=== PATIENT | female | born 1975 | race American Indian/Alaskan Native ===

== ENCOUNTER 2021-03-07 19:56 | Inpatient (IN) | payer OTHER, SELFPAY ==
[2021-03-07] MEDS ORDERED: AZITHROMYCIN/NS 500 MG/250 ML 500 MG/250 ML BAG IV ONE (20:17)
[2021-03-07] MEDS ORDERED: cefTRIAXone/NS 2 GM/100 ML 2 GM/100 ML BAG IV ONE (20:17)
[2021-03-07] MEDS ORDERED: SUCCINYLCHOLINE CHLORIDE 200 MG/10 ML INJ MDV ONE (20:38)
[2021-03-07] MEDS ORDERED: ETOMIDATE 20 MG/10 ML INJ IV ONE (20:38)
--- NOTE | 2021-03-07 20:54 | Emergency Department Report ---
HPI - General Chief Complaint: Dyspnea/Respdistress Time Seen by Provider: 03/07/21 20:17 - HPI HPI: 45-year-old female with no known past medical history presents complaining of shortness of breath for the last 3 days. She reports that for the past 3 days she has also had diarrhea. She says she has had a cough but thought it was just a cold. She is not vaccinated against the novel coronavirus. The patient is in respiratory distress and it is very difficult for her to speak. Further details of the HPI are limited due to the patient's current clinical condition. ED Past Medical Hx - Past Medical History Previous Medical History?: No - Surgical History Past Surgical History?: No - Social History Smoking Status: Never Smoker ED Review of Systems ROS: Stated complaint: COVID SYMPTOMS Other details as noted in HPI Comment: Unobtainable due to pts medical conditions Physical Exam - Physical Exam Vital Signs: Vital Signs 03/07/21 19:59 Temperature 97.4 F L Pulse Rate 115 H Respiratory 30 H Rate O2 Sat by Pulse 55 L Oximetry Physical Exam: GENERAL: Well developed and well nourished. In severe respiratory distress. Speaking in very short sentences. HEENT: Normocephalic. No obvious signs of trauma. Dry mucous membranes. EYES: Extraocular movements are intact. NECK: Supple. Trachea is midline. LUNGS: Severe respiratory distress with accessory muscle use. Lung auscultation reveals scattered crackles and rhonchi throughout bilateral lung pedersen. HEART/CARDIOVASCULAR: Tachycardic but with regular rhythm. No murmurs or rubs. VASCULAR: 2+ peripheral pulses. Dusky appearing extremities ABDOMEN: Abdomen is soft and nondistended. There is no significant tenderness, guarding or rebound. SKIN: Skin is warm and dry, dusky extremities NEURO: Patient is awake and alert, moving all four extremities. No focal defi cits. MUSCULOSKELETAL: No obvious deformities. No significant tenderness. . ED Course Vital Signs 03/07/21 19:59 Temperature 97.4 F L Pulse Rate 115 H Respiratory 30 H Rate O2 Sat by Pulse 55 L Oximetry - Central Line Placement Right IJ Time Out Performed: Yes Patient Placed on Monitor/Pulse Ox: Yes MD Prep: mask, gown, gloves Central Line Prep: Chlorhexidine scrub, sterile drapes applied Local Anesthesia Used: Lidocaine 1% Amount of Anesthesia Used (mls): 1 Ultrasound Used for Placement: Yes Central Line Lumen Inserted: triple Reason for Insertion: High Alert Medication Central Line Position: good blood return, all ports aspirated, flus, sutured in place with nyl Dressing Applied: Tegaderm, sterile gauze/tape Post Procedure X-Ray: tip of catheter in good p Patient Tolerated Procedure: well Complications: none - Intubation Sedative: Etomidate Mg Given: 20 Paralytic: Succinylcholine Mg Given: 100 Laryngoscope: Carla Size: 4 ET Tube Size: 7.5 Tube Secured Depth (cm): 22 Tube Secured Location: lips Tube Placement Confirmation: visualized tube passing t, equal breath sounds bilat, confirmation by capnometr Patient Tolerated Procedure: well, no complications Intubation Complications: none ED Medical Decision Making - Lab Data Result diagrams: 03/07/21 21:04 03/07/21 20:31 Labs 03/07/21 03/07/21 03/07/21 20:31 20:31 20:31 WBC RBC Hgb Hct MCV MCH MCHC RDW Plt Count Lymph % (Auto) [place] % (Auto) Eos % (Auto) Baso % (Auto) Lymph # (Auto) [place] # (Auto) Eos # (Auto) Baso # (Auto) Add Manual Diff Total Counted Seg Neutrophils % Seg Neuts % (Manual) Band Neutrophils % Lymphocytes % (Manual) Monocytes % (Manual) Metamyelocytes % Myelocytes % Nucleated RBC % Seg Neutrophils # Seg Neutrophils # Man Band Neutrophils # Lymphocytes # (Manual) Abs React Lymphs (Man) Monocytes # (Manual) Eosinophils # (Manual) Basophils # (Manual) Metamyelocytes # Myelocytes # Promyelocytes # Blast Cells # WBC Morphology Hypersegmented Neuts Hyposegmented Neuts Hypogranular Neuts Smudge Cells Toxic Granulation Toxic Vacuolation Dohle Bodies Pelger-Huet Anomaly Jarrett Rods Platelet Estimate Clumped Platelets Plt Clumps, EDTA Large Platelets Giant Platelets Platelet Satelliting Plt Morphology Comment RBC Morphology Dimorphic RBCs Polychromasia Hypochromasia Poikilocytosis Anisocytosis Microcytosis Macrocytosis Spherocytes Pappenheimer Bodies Sickle Cells Target Cells Tear Drop Cells Ovalocytes Helmet Cells [place] Bodies [place] Rings [place] Cells Bite Cells Crenated Cell Elliptocytes Acanthocytes (Spur) Rouleaux Hemoglobin C Crystals Schistocytes Malaria parasites Joss Bodies Hem Pathologist Commnt APTT D-Dimer Sodium 133 L Potassium 4.2 Chloride 94.6 L Carbon Dioxide 17 L Anion Gap 26 BUN 22 H Creatinine 0.9 Estimated GFR > 60 BUN/Creatinine Ratio 24 Glucose 309 H 301 H Lactic Acid 5.10 H* Calcium 8.4 Ferritin Total Bilirubin 0.70 AST 34 ALT 18 Alkaline Phosphatase 122 Lactate Dehydrogenase 1259 H Troponin T 0.085 H C-Reactive Protein 25.50 H Total Protein 7.3 Albumin 3.5 L Albumin/Globulin Ratio 0.9 Triglycerides 213 H Cholesterol 141 LDL Cholesterol Direct 72 HDL Cholesterol 34 L Cholesterol/HDL Ratio 4.14 Procalcitonin 03/07/21 03/07/21 03/07/21 20:31 20:31 21:04 WBC 31.6 H RBC 4.83 Hgb 13.7 Hct 42.3 MCV 88 MCH 28 MCHC 32 RDW 15.3 H Plt Count 165 Lymph % (Auto) Gravity Meter Operator [place] % (Auto) Gravity Meter Operator Eos % (Auto) Gravity Meter Operator Baso % (Auto) Gravity Meter Operator Lymph # (Auto) Gravity Meter Operator [place] # (Auto) Gravity Meter Operator Eos # (Auto) Gravity Meter Operator Baso # (Auto) Gravity Meter Operator Add Manual Diff Complete Total Counted 200 Seg Neutrophils % Gravity Meter Operator Seg Neuts % (Manual) 73.0 H Band Neutrophils % 5.0 Lymphocytes % (Manual) 11.5 L Monocytes % (Manual) 5.5 Metamyelocytes % 4.0 Myelocytes % 1.0 Nucleated RBC % 7.0 H Seg Neutrophils # Gravity Meter Operator Seg Neutrophils # Man 23.1 H Band Neutrophils # 1.6 Lymphocytes # (Manual) 3.6 Abs React Lymphs (Man) 0.0 Monocytes # (Manual) 1.7 H Eosinophils # (Manual) 0.0 Basophils # (Manual) 0.0 Metamyelocytes # 1.3 Myelocytes # 0.3 Promyelocytes # 0.0 Blast Cells # 0.0 WBC Morphology Not Reportable Hypersegmented Neuts Not Reportable Hyposegmented Neuts Not Reportable Hypogranular Neuts Not Reportable Smudge Cells Not Reportable Toxic Granulation Not Reportable Toxic Vacuolation Not Reportable Dohle Bodies Not Reportable Pelger-Huet Anomaly Not Reportable Jarrett Rods Not Reportable Platelet Estimate Cons Clumped Platelets Not Reportable Plt Clumps, EDTA Not Reportable Large Platelets Few Giant Platelets Not Reportable Platelet Satelliting Not Reportable Plt Morphology Comment Not Reportable RBC Morphology Not Reportable Dimorphic RBCs Not Reportable Polychromasia Few Hypochromasia Not Reportable Poikilocytosis Not Reportable Anisocytosis 1+ Microcytosis Not Reportable Macrocytosis Not Reportable Spherocytes Not Reportable Pappenheimer Bodies Not Reportable Sickle Cells Not Reportable Target Cells Not Reportable Tear Drop Cells Not Reportable Ovalocytes Not Reportable Helmet Cells Not Reportable [place] Bodies Not Reportable [place] Rings Not Reportable [place] Cells Not Reportable Bite Cells Not Reportable Crenated Cell Not Reportable Elliptocytes Not Reportable Acanthocytes (Spur) Not Reportable Rouleaux Not Reportable Hemoglobin C Crystals Not Reportable Schistocytes Not Reportable Malaria parasites Not Reportable Joss Bodies Not Reportable Hem Pathologist Commnt No APTT D-Dimer Sodium Potassium Chloride Carbon Dioxide Anion Gap BUN Creatinine Estimated GFR BUN/Creatinine Ratio Glucose Lactic Acid Calcium Ferritin 148.8 Total Bilirubin AST ALT Alkaline Phosphatase Lactate Dehydrogenase Troponin T C-Reactive Protein Total Protein Albumin Albumin/Globulin Ratio Triglycerides Cholesterol LDL Cholesterol Direct HDL Cholesterol Cholesterol/HDL Ratio Procalcitonin 0.54 03/07/21 03/07/21 21:28 21:28 WBC RBC Hgb Hct MCV MCH MCHC RDW Plt Count Lymph % (Auto) [place] % (Auto) Eos % (Auto) Baso % (Auto) Lymph # (Auto) [place] # (Auto) Eos # (Auto) Baso # (Auto) Add Manual Diff Total Counted Seg Neutrophils % Seg Neuts % (Manual) Band Neutrophils % Lymphocytes % (Manual) Monocytes % (Manual) Metamyelocytes % Myelocytes % Nucleated RBC % Seg Neutrophils # Seg Neutrophils # Man Band Neutrophils # Lymphocytes # (Manual) Abs React Lymphs (Man) Monocytes # (Manual) Eosinophils # (Manual) Basophils # (Manual) Metamyelocytes # Myelocytes # Promyelocytes # Blast Cells # WBC Morphology Hypersegmented Neuts Hyposegmented Neuts Hypogranular Neuts Smudge Cells Toxic Granulation Toxic Vacuolation Dohle Bodies Pelger-Huet Anomaly Jarrett Rods Platelet Estimate Clumped Platelets Plt Clumps, EDTA Large Platelets Giant Platelets Platelet Satelliting Plt Morphology Comment RBC Morphology Dimorphic RBCs Polychromasia Hypochromasia Poikilocytosis Anisocytosis Microcytosis Macrocytosis Spherocytes Pappenheimer Bodies Sickle Cells Target Cells Tear Drop Cells Ovalocytes Helmet Cells [place] Bodies [place] Rings Brant Cells Bite Cells Crenated Cell Elliptocytes Acanthocytes (Spur) Rouleaux Hemoglobin C Crystals Schistocytes Malaria parasites Joss Bodies Hem Pathologist Commnt APTT 29.1 D-Dimer > 59113 H Sodium Potassium Chloride Carbon Dioxide Anion Gap BUN Creatinine Estimated GFR BUN/Creatinine Ratio Glucose Lactic Acid 6.00 H* Calcium Ferritin Total Bilirubin AST ALT Alkaline Phosphatase Lactate Dehydrogenase Troponin T C-Reactive Protein Total Protein Albumin Albumin/Globulin Ratio Triglycerides Cholesterol LDL Cholesterol Direct HDL Cholesterol Cholesterol/HDL Ratio Procalcitonin - EKG Data -: EKG Interpreted by Me - EKG Data 03/08/21 00:22 Normal sinus rhythm. Normal axis. Normal intervals. No ectopy. No significant ST segment or T wave abnormalities. - Radiology Data CHEST 1 VIEW 03/07/2021 8:20 PM INDICATION / CLINICAL INFORMATION: resp distress. COMPARISON: None available. FINDINGS: SUPPORT DEVICES: None. HEART / MEDIASTINUM: No significant abnormality. LUNGS / PLEURA: Diffuse patchy bilateral pulmonary opacities are noted. No pleural effusion. No pneumothorax. ADDITIONAL FINDINGS: No significant additional findings. IMPRESSION: 1. Diffuse patchy bilateral pulmonary opacities are noted. This may represent an atypical/viral infectious process versus interstitial edema. Clinical correlation is needed. Signer Name: Phillip Maier MD Signed: 03/07/2021 8:30 PM Workstation Name: [id number] CHEST 1 VIEW 03/07/2021 8:20 PM INDICATION / CLINICAL INFORMATION: confirm Et tube placement. COMPARISON: 03/07/2021 FINDINGS: SUPPORT DEVICES: Interval placement of ET tube with its tip roughly at the level of the orion. Interval placement of NG tube with its tip projected over left upper quadrant of the a bdomen and its side-port at the distal GE junction. HEART / MEDIASTINUM: Stable. LUNGS / PLEURA: Diffuse lateral pulmonary opacities have not changed since the prior exam. No pleural effusion. No pneumothorax. ADDITIONAL FINDINGS: No significant additional findings. IMPRESSION: 1. Interval placement of ET tube with its tip at the level the orion. Retraction approximately 3.5 cm is recommended. 2. Interval placement of NG tube needs advancement approximately 5 cm for proper positioning. 3. Diffuse bilateral pulmonary opacities have not changed since the prior exam. Signer Name: Phillip Maier MD Signed: 03/07/2021 8:35 PM Workstation Name: [id number] CHEST 1 VIEW INDICATION / CLINICAL INFORMATION: Confirm central line placement. COMPARISON: 03/07/2021 FINDINGS: SUPPORT DEVICES: Right IJ central venous line has been placed. The tip is in the expected location of the SVC and is in satisfactory position. Indwelling ET tube and NG tube remain in stable and satisfactory position. HEART / MEDIASTINUM: No significant abnormality. LUNGS / PLEURA: Diffuse bilateral nodular pulmonary opacities are again noted not appreciably changed. Many of these opacities are "masslike". No pneumothorax. ADDITIONAL FINDINGS: No significant additional findings. IMPRESSION: 1. Diffuse bilateral pulmonary opacities. It is unclear if this represents diffuse bilateral pneumonia versus numerous pulmonary nodules/metastases. Please correlate clinically. Overall, the appearance of the chest radiograph is stable. 2. Satisfactory positioning of the right IJ central venous line. No pneumothorax. Signer Name: Meryl Aguila MD Signed: 03/08/2021 12:53 AM Workstation Name: [id number] - Medical Decision Making 45-year-old female with no known past medical history presents complaining of shortness of breath and diarrhea for the past 3 days. Patient was noted to be i n extreme respiratory distress in triage, satting in the 50% on room air. She is tachycardic in the 130s. She has no abdominal tenderness. Lung auscultation reveals scattered crackles and rhonchi throughout bilateral lung pedersen. The patient was placed on BiPAP. Full sepsis orders were initiated including labs and cultures, as well as COVID-19 order set. We will administer IV ceftriaxone, azithromycin, and vancomycin for likely sepsis secondary to pneumonia and give 30 mL/kg of IV fluid based on her ideal body weight of 50 kg. After 15 minutes on BiPAP, the patient is noted to be satting in the 70s still. Decision was made to proceed with emergent intubation and to place the patient on mechanical ventilation. Labs have returned and reveal several abnormalities including white blood cell count of 31.6, elevated lactate of 5.1, troponin of 0.085 (most likely due to prolonged hypoixemia) and glucose of 301. Her creatinine is 0.9. Chest x-ray confirms correct ET tube placement as well as parents consistent with bilateral pneumonia. I am highly suspicious for COVID-19 infection. will be admitted to the ICU for further management. D-dimer returned at greater than 10,000. Although I am highly suspicious for COVID-19 infection, we will therefore order CTA of the chest which will be followed up by the admitting doctor, Dr. Palma. Although the patient was initially hypotensive with a blood pressure in the 80s systolic, her blood pressure improved with sepsis IV fluids. We will continue to monitor her blood pressure closely. At 11:04 PM, the patient is noted to have a blood pressure which continues to drop into the 80s systolic. We will start a Levophed drip as a vasopressor and place a central line. Critical Care Time: Yes (90) Critical care time in (mins) excluding proc time.: 90 Critical care attestation.: If time is entered above; I have spent that time in minutes in the direct care of this critically ill patient, excluding procedure time. Critical care time was spent in the assessment and management of acute hypoxic respiratory failure requiring intubation and mechanical ventilation as well as septic shock requiring IV fluids and vasopressors for blood pressure support. ED Disposition Clinical Impression: Septic shock, Pneumonia, Suspected 2019 novel coronavirus infection, Sepsis with acute hypoxic respiratory failure, Hyperglycemia Disposition: OP ADMIT IP TO THIS HOSP Is pt being admited?: Yes Condition: Critical
[2021-03-07 21:09] LABS: Hematocrit 42.3 % (30.3-42.9); Hemoglobin 13.7 gm/dl (10.1-14.3); Mean Corpuscular HGB Conc 32 % (30-34); Mean Corpuscular Volume 88 fl (79-97); Platelet Count 165 K/mm3 (140-440); Red Blood Count 4.83 M/mm3 (3.65-5.03); Red Cell Distribution Width 15.3 % (13.2-15.2)
[2021-03-07 21:12] LABS: Alanine Aminotransferase 18 units/L (7-56); Albumin 3.5 g/dL (3.9-5); BUN/Creatinine Ratio 24; Blood Urea Nitrogen 22 mg/dL (7-17); Calcium 8.4 mg/dL (8.4-10.2); Hemolysis Index 110
[2021-03-07 21:17] LABS: C-Reactive Protein 25.5 mg/dL (0.00-1.30)
[2021-03-07] MEDS ORDERED: VANCOMYCIN 2,000 MG in SODIUM CHLORIDE 0.9% 500 ML 500 ML IV ONE (21:20)
[2021-03-07 21:25] LABS: Chol/HDL Ratio 4.14 %; HDL Cholesterol 34 mg/dL (40-59); LDL Cholesterol,Direct 72 mg/dL (50-130)
--- NOTE | 2021-03-07 21:35 | XRay Report ---
CHEST 1 VIEW 03/07/2021 8:20 PM INDICATION / CLINICAL INFORMATION: resp distress. COMPARISON: None available. FINDINGS: SUPPORT DEVICES: None. HEART / MEDIASTINUM: No significant abnormality. LUNGS / PLEURA: Diffuse patchy bilateral pulmonary opacities are noted. No pleural effusion. No pneum othorax. ADDITIONAL FINDINGS: No significant additional findings. IMPRESSION: 1. Diffuse patchy bilateral pulmonary opacities are noted. This may represent an atypical/viral infec tious process versus interstitial edema. Clinical correlation is needed. Signer Name: Phillip Maier MD Signed: 03/07/2021 9:30 PM Workstation Name: [id number]
[2021-03-07] MEDS ORDERED: SODIUM CHLORIDE 0.9% 1000 ML 1,000 ML ONE (21:37)
--- NOTE | 2021-03-07 21:39 | XRay Report ---
CHEST 1 VIEW 03/07/2021 8:20 PM INDICATION / CLINICAL INFORMATION: confirm Et tube placement. COMPARISON: 03/07/2021 FINDINGS: SUPPORT DEVICES: Interval placement of ET tube with its tip roughly at the level of the orion. Inter katie placement of NG tube with its tip projected over left upper quadrant of the abdomen and its side- port at the distal GE junction. HEART / MEDIASTINUM: Stable. LUNGS / PLEURA: Diffuse lateral pulmonary opacities have not changed since the prior exam. No pleural effusion. No pneumothorax. ADDITIONAL FINDINGS: No significant additional findings. IMPRESSION: 1. Interval placement of ET tube with its tip at the level the orion. Retraction approximately 3.5 c m is recommended. 2. Interval placement of NG tube needs advancement approximately 5 cm for proper positioning. 3. Diffuse bilateral pulmonary opacities have not changed since the prior exam. Signer Name: Phillip Maier MD Signed: 03/07/2021 9:35 PM Workstation Name: [id number]
[2021-03-07 21:47] LABS: Band Neutrophils # (Manual) 1.6 K/mm3; Monocytes % (Manual) 5.5 % (0.0-7.3); Myelocytes # (Manual) 0.3 K/mm3; Total Cells Counted 200
[2021-03-07 21:48] LABS: Partial Thromboplastin Time 29.1 Sec. (24.2-36.6)
[2021-03-07 21:48] LABS: Anisocytosis 1+; Large Platelets Few
[2021-03-07 21:49] LABS: Platelet Estimate Cons
[2021-03-07] MEDS: fentaNYL 100 MCG/2 ML INJ IV PRN (22:13)
[2021-03-07] MEDS: fentaNYL DRIP Premix 2,000 MCG/100 ML BAG IV SCH (22:16)
[2021-03-07] MEDS ORDERED: ONDANSETRON 4 MG/2 ML INJ IV PRN (22:57)
[2021-03-07] MEDS ORDERED: DEXTROSE 50% IN WATER (25GM) 50 ML SYRINGE IV PRN (22:57)
[2021-03-07] MEDS ORDERED: MAGNESIUM HYDROXIDE (MOM) ORAL LIQD UDC PO PRN (22:57)
--- NOTE | 2021-03-07 23:15 | History and Physical Report ---
History of Present Illness Date of examination: 03/07/21 Date of admission: 03/07/2021 Chief complaint: Shortness of breath & Diarrhea for 3 days History of present illness: 45-year-old female with no significant past medical history Presenting to the emergency room today complaining of cough, shortness of breath and diarrhea for about 3 days. Patient was found to be in respiratory distress upon arrival in the emergency room. Initial oxygen saturation was said to be in the 50s and patient was subsequently placed on a nonrebreather with with improvement of oxy gen saturation to the 70s. Patient was subsequently intubated in the emergency room. Most of the history was gotten from the emergency room staff as patient was already intubated. Family members were also not available. Review of patient's record indicates she has not received vaccination against the COVID-19. Work-up in the emergency room today reveals bilateral pulmonary infiltrate on the chest x-ray. Labs reveals significant leukocytosis of 31,000, hyperglycemia with blood glucose of 301, D-dimer was also significantly elevated and greater than 10,000. CT angiogram of the chest reveals multiple peripheral bilateral lower lobe pulmonary emboli. Patient became hypotensive and was given IV fluid and started on pressors in the ER. Patient has been admitted for a pneumonia with septic shock, pulmonary emboli and will also rule out COVID-19 infection. Past History Past Medical History: No medical history Past Surgical History: No surgical history Social history: no significant social history Medications and Allergies Allergies Allergy/AdvReac Type Severity Reaction Status Date / Time No Known Allergies Allergy Unverified 03/07/21 19:59 Active Meds: Active Medications Dextrose (Dextrose 50% In Water (25gm) 50 Ml Syringe) 50 ml IV Q30MIN PRN; Protocol PRN Reason: Hypoglycemia Dextrose (Dextrose 50% In Water (25gm) 50 Ml Syringe) 50 ml IV Q30MIN PRN; Protocol PRN Reason: Hypoglycemia Enoxaparin Sodium (Enoxaparin 40 Mg/0.4 Ml Inj) 40 mg SUB-Q QDAY@2200 [facility]IO; Protocol Fentanyl (Fentanyl 100 Mcg/2 Ml Inj) 50 mcg IV Q10MIN PRN PRN Reason: ANALGESIA Last Admin: 03/07/21 22:13 Dose: 50 mcg Documented by: Propofol (Diprivan 10 Mg/Ml) 1,000 mg in 100 mls @ 6 mls/hr IV TITR [facility]CO ANTONIO; Protocol Last Admin: 03/07/21 21:12 Dose: 5 mcg/kg/min, 6 mls/hr Documented by: Fentanyl Citrate (Fentanyl Drip Premix) 2,000 mcg in 100 mls @ 10 mls/hr IV TITR [facility]CO ANTONIO; Protocol Last Admin: 03/07/21 22:16 Dose: 1 mcg/kg/hr, 10 mls/hr Documented by: Norepinephrine (Levophed Drip 4 Mg/Ns 250 Ml) 4 mg in 250 mls @ 7.5 mls/hr IV TITR [facility]CO ANTONIO; Protocol Sodium Chloride (Nacl 0.9% 1000 Ml) 1,000 mls @ 125 mls/hr IV DIRECT [facility]CO ANTONIO Ceftriaxone Sodium (Rocephin/Ns 2 Gm/100 Ml) 2 gm in 100 mls @ 200 mls/hr IV Q24H [facility] ANTON[facility]; Protocol Azithromycin (Zithromax/Ns) 500 mg in 250 mls @ 250 mls/hr IV Q24H [facility] ANTONIO; Protocol Insulin Human Lispro (Insulin Lispro 100 Unit/Ml) 0 unit SUB-Q ACHS MARCO ANTONIO; Protocol Magnesium Hydroxide (Magnesium Hydroxide (Mom) Oral Liqd Udc) 30 ml PO Q4H PRN PRN Reason: Constipation Morphine Sulfate (Morphine 2 Mg/1 Ml Inj) 2 mg IV Q4H PRN PRN Reason: Pain, Moderate (4-6) Ondansetron HCl (Ondansetron 4 Mg/2 Ml Inj) 4 mg IV Q8H PRN PRN Reason: Nausea And Vomiting Sodium Chloride (Sodium Chloride 0.9% 10 Ml Flush Syringe) 10 ml IV BID [facility]CO AN[facility]IO Sodium Chloride (Sodium Chloride 0.9% 10 Ml Flush Syringe) 10 ml IV PRN PRN PRN Reason: LINE FLUSH Review of Systems ROS unobtainable: due to endotracheal tube Exam - Constitutional Vitals: Temp Pulse Resp BP Pulse Ox 97.4 F L 85 30 H 82/52 95 03/07/21 19:59 03/07/21 21:04 03/07/21 19:59 03/07/21 21:04 03/07/21 21:04 General appearance: Present: well-nourished, obese, other (Intubated and sedated ) - EENT Eyes: Present: PERRL, EOM intact. Absent: scleral icterus ENT: hearing intact, clear oral mucosa, dentition normal - Neck Neck: Present: supple, normal ROM - Respiratory Respiratory effort: normal Respiratory: bilateral: diminished - Cardiovascular Rhythm: regular Heart Sounds: Present: S1 & S2. Absent: gallop, systolic murmur, diastolic murmur, rub, click - Extremities Extremities: no ischemia, pulses intact, pulses symmetrical, No edema, normal temperature, normal color, Full ROM Peripheral Pulses: within normal limits - Abdominal General gastrointestinal: Present: soft, non-tender, non-distended, normal bowel sounds. Absent: mass - Integumentary Integumentary: Present: clear, warm, dry. Absent: rash - Musculoskeletal Musculoskeletal: strength equal bilaterally - Psychiatric Psychiatric: cooperative - Neurologic Neurologic: CNII-XII intact, no focal deficits, moves all extremities, other (Currently intubated and sedated) HEART Score - HEART Score Troponin: Troponin T 0.085 ng/mL (0.00-0.029) H 03/07/21 20:31 Results - Labs CBC & Chem 7: 03/07/21 21:04 03/07/21 20:31 Labs: Abnormal lab results 03/07/21 03/07/21 03/07/21 Range/Units 20:31 20:31 20:31 WBC (4.5-11.0) K/mm3 RDW (13.2-15.2) % Seg Neuts % (Manual) (40.0-70.0) % Lymphocytes % (Manual) (13.4-35.0) % Nucleated RBC % (0.0-0.9) % Seg Neutrophils # Man (1.8-7.7) K/mm3 Monocytes # (Manual) (0.0-0.8) K/mm3 D-Dimer (0-234) ng/mlDDU Sodium 133 L (137-145) mmol/L Chloride 94.6 L (98-107) mmol/L Carbon Dioxide 17 L (22-30) mmol/L BUN 22 H (7-17) mg/dL Glucose 309 H 301 H (65-100) mg/dL Lactic Acid 5.10 H* (0.7-2.0) mmol/L Lactate Dehydrogenase 1259 H (91-180) units/L Troponin T 0.085 H (0.00-0.029) ng/mL C-Reactive Protein 25.50 H (0.00-1.30) mg/dL Albumin 3.5 L (3.9-5) g/dL Triglycerides 213 H (2-149) mg/dL HDL Cholesterol 34 L (40-59) mg/dL 03/07/21 03/07/21 03/07/21 Range/Units 21:04 21:28 21:28 WBC 31.6 H (4.5-11.0) K/mm3 RDW 15.3 H (13.2-15.2) % Seg Neuts % (Manual) 73.0 H (40.0-70.0) % Lymphocytes % (Manual) 11.5 L (13.4-35.0) % Nucleated RBC % 7.0 H (0.0-0.9) % Seg Neutrophils # Man 23.1 H (1.8-7.7) K/mm3 Monocytes # (Manual) 1.7 H (0.0-0.8) K/mm3 D-Dimer > 45479 H (0-234) ng/mlDDU Sodium (137-145) mmol/L Chloride (98-107) mmol/L Carbon Dioxide (22-30) mmol/L BUN (7-17) mg/dL Glucose (65-100) mg/dL Lactic Acid 6.00 H* (0.7-2.0) mmol/L Lactate Dehydrogenase (91-180) units/L Troponin T (0.00-0.029) ng/mL C-Reactive Protein (0.00-1.30) mg/dL Albumin (3.9-5) g/dL Triglycerides (2-149) mg/dL HDL Cholesterol (40-59) mg/dL Assessment and Plan - Patient Problems (1) Pneumonia Current Visit: Yes Status: Acute Plan to address problem: Patient commenced on empiric IV antibiotics. We will await culture results. (2) Hyperglycemia Current Visit: Yes Status: Acute Plan to address problem: Patient has no known history of diabetes mellitus. Will monitor blood glucose and also check hemoglobin A1c. (3) Respiratory failure Current Visit: Yes Status: Acute Plan to address problem: Possibly secondary to the pneumonia. Patient currently intubated. Consult placed to filler and trimmer for further evaluation. (4) Septic shock Current Visit: Yes Status: Acute Plan to address problem: Secondary to the pneumonia. Patient has been started on empiric IV antibiotics ,IV fluid and pressors. Will monitor labs closely. (5) Suspected 2019 novel coronavirus infection Current Visit: Yes Status: Acute Plan to address problem: We await COVID-[address] patient on isolation precautions. We will commence patient on IV steroid and also place consult to infectious disease . (6) Pulmonary embolism Current Visit: Yes Status: Acute Plan to address problem: Patient started on anticoagulation with heparin drip. (7) DVT prophylaxis Current Visit: Yes Status: Acute Plan to address problem: Patient currently on anticoagulation. (8) Full code status Current Visit: Yes Status: Acute Plan to address problem: Patient is a full code.
[2021-03-07] MEDS ORDERED: dexAMETHasone 4 MG/ML VIAL IV ONE (23:17)
[2021-03-07] MEDS ORDERED: NORepinephrine/NS 4 MG-250 ML 4 MG/250 ML BAG IV SCH (23:45)
[2021-03-08 00:18] LABS: ABG Base Excess -4.7 mmol/L (-2.0-3.0); ABG HCO3 20.7 mmol/L (20.0-26.0); ABG Methemoglobin 0.6 % (0.0-1.5); ABG Oxygen Saturation 89.1 % (95.0-99.0); ABG PCO2 39.5 mm Hg; ABG PH 7.338 pH Units (7.350-7.450); ABG PO2 62.6 mm Hg (80.0-90.0)
--- NOTE | 2021-03-08 01:58 | XRay Report ---
CHEST 1 VIEW INDICATION / CLINICAL INFORMATION: Confirm central line placement. COMPARISON: 03/07/2021 FINDINGS: SUPPORT DEVICES: Right IJ central venous line has been placed. The tip is in the expected location of the SVC and is in satisfactory position. Indwelling ET tube and NG tube remain in stable and satisfa ctory position. HEART / MEDIASTINUM: No significant abnormality. LUNGS / PLEURA: Diffuse bilateral nodular pulmonary opacities are again noted not appreciably changed . Many of these opacities are "masslike". No pneumothorax. ADDITIONAL FINDINGS: No significant additional findings. IMPRESSION: 1. Diffuse bilateral pulmonary opacities. It is unclear if this represents diffuse bilateral pneumoni a versus numerous pulmonary nodules/metastases. Please correlate clinically. Overall, the appearance of the chest radiograph is stable. 2. Satisfactory positioning of the right IJ central venous line. No pneumothorax. Signer Name: Meryl Aguila MD Signed: 03/08/2021 1:53 AM Workstation Name: [id number]
[2021-03-08] MEDS ORDERED: HEPARIN 10,000 UNITS/10 ML VIAL IV ONE ×2 (03:37→04:00)
[2021-03-08] MEDS ORDERED: HEPARIN 10,000 UNITS/10 ML VIAL IV PRN (03:37)
--- NOTE | 2021-03-08 03:39 | Cat Scan Report ---
CTA CHEST WITH IV CONTRAST INDICATION / CLINICAL INFORMATION: Elevated D-dimer, Respiratory failure. TECHNIQUE: Axial CT images were obtained through the chest after injection of 100 mL IV contrast. 3 plane MIP an d/or 3D reconstructions were produced. All CT scans at this location are performed using CT dose redu ction for [facility] by means of automated exposure control. COMPARISON: Chest radiograph earlier today FINDINGS: PULMONARY ARTERIES: Scattered small pulmonary emboli are seen throughout the pulmonary arteries of aneudy th lower lobes. No large central embolus. THORACIC AORTA: No significant abnormality. HEART: No significant abnormality. CORONARY ARTERIES: No significant calcification. PLEURA: No pleural effusion. No pneumothorax. LYMPH NODES: No significant adenopathy. LUNGS: There are diffuse pulmonary opacities throughout both lungs with developing consolidation diff usely and bilaterally. No evidence of true mass. ADDITIONAL FINDINGS: Please note that the tip of the ET tube is at the level the orion. Please consi amanuel retracting the ET tube 2-3 cm. Tip of NG tube is well positioned within the stomach. UPPER ABDOMEN: No acute findings. SKELETAL STRUCTURES: No significant osseous abnormality. IMPRESSION: 1. Multiple small peripheral bilateral lower lobe pulmonary emboli are present. 2. Diffuse severe bilateral pulmonary opacities most likely related to severe bilateral pneumonia. CRITICAL RESULT: Time of Discovery: 0225 hours TUBING ASSEMBLER Time of Communication: 0231 hours TUBING ASSEMBLER Licensed Practitioner Receiving Report: Shelia Read Back Performed: Yes. Signer Name: Meryl Aguila MD Signed: 03/08/2021 3:35 AM Workstation Name: [id number]
[2021-03-08] MEDS: HEPARIN/ 0.45% NACL DRIP 25,000 UNIT/500 ML BAG IV SCH ×2 (05:01→21:03)
[2021-03-08] MEDS: SODIUM CHLORIDE 0.9% 1000 ML 1,000 ML IV SCH ×3 (05:01→21:05)
[2021-03-08 06:48] LABS: Hematocrit 34.3 % (30.3-42.9); Hemoglobin 11.1 gm/dl (10.1-14.3); Mean Corpuscular HGB Conc 32 % (30-34); Mean Corpuscular Volume 86 fl (79-97); Platelet Count 108 K/mm3 (140-440); Red Blood Count 4.01 M/mm3 (3.65-5.03); Red Cell Distribution Width 14.5 % (13.2-15.2)
[2021-03-08 07:02] LABS: INR 1.69 (0.87-1.13)
[2021-03-08 07:03] LABS: Bacteria,Urine 1+ /HPF (Negative); Bilirubin,Urine NEG (Negative); Blood,Urine NEG (Negative); Color,Urine Yellow (Yellow); Mucus,Urine FEW /HPF
[2021-03-08 07:07] LABS: BUN/Creatinine Ratio 23; Blood Urea Nitrogen 21 mg/dL (7-17); Calcium 6.8 mg/dL (8.4-10.2); Hemolysis Index 9
[2021-03-08 07:23] LABS: Partial Thromboplastin Time TNR Sec. (24.2-36.6)
[2021-03-08] MEDS ORDERED: INSULIN LISPRO 100 UNIT/ML SUB-Q SCH (07:30)
[2021-03-08] MEDS: fentaNYL DRIP Premix 2,000 MCG/100 ML BAG IV SCH ×2 (08:03→15:54)
[2021-03-08 08:25] LABS: INR 1.49 (0.87-1.13)
[2021-03-08 08:32] LABS: Partial Thromboplastin Time 113.5 Sec. (24.2-36.6)
--- NOTE | 2021-03-08 08:39 | Progress Note ---
Assessment and Plan Assessment and plan: 45-year-old female with no significant past medical history Presenting to the emergency room today complaining of cough, shortness of breath and diarrhea for about 3 days. Patient was found to be in respiratory distress upon arrival in the emergency room. Initial oxygen saturation was said to be in the 50s and patient was subsequently placed on a nonrebreather with with improvement of oxygen saturation to the 70s. Patient was subsequently intubated in the emergency room. Most of the history was gotten from the emergency room staff as patient was already intubated. Family members were also not available. Review of patient's record indicates she has not received vaccination against the COVID-19. Work-up in the emergency room today reveals bilateral pulmonary infiltrate on the chest x-ray. Labs reveals significant leukocytosis of 31,000, hyperglycemia with blood glucose of 301, D-dimer was also significantly elevated and greater than 10,000. CT angiogram of the chest reveals multiple peripheral bilateral lower lobe pulmonary emboli. Patient became hypotensive and was given IV fluid and started on pressors in the ER. Patient has been admitted for a pneumonia with septic shock, pulmonary emboli and will also rule out COVID-19 infection. 03/08: New issues: Thrombocytosis question if this is secondary to HIT. We will send out HIT panel. Monitor platelets. Continue heparin drip at this time. Await pulmonary and ID input. (1) Pneumonia Current Visit: Yes Status: Acute Plan to address problem: Patient commenced on empiric IV antibiotics. We will await culture results. (2) Hyperglycemia Current Visit: Yes Status: Acute Plan to address problem: Patient has no known history of diabetes mellitus. Will monitor blood glucose and also check hemoglobin A1c. (3) Respiratory failure Current Visit: Yes Status: Acute Plan to address problem: Possibly secondary to the pneumonia. Patient currently intubated. Consult placed to production corrugator for further evaluation. (4) Septic shock Current Visit: Yes Status: Acute Plan to address problem: Secondary to the pneumonia. Patient has been started on empiric IV antibiotics ,IV fluid and pressors. Will monitor labs closely. (5) Suspected 2019 novel coronavirus infection Current Visit: Yes Status: Acute Plan to address problem: We await COVID-[address] patient on isolation precautions. We will commence patient on IV steroid and also place consult to infectious disease . (6) Pulmonary embolism Current Visit: Yes Status: Acute Plan to address problem: Patient started on anticoagulation with heparin drip. (7) DVT prophylaxis Current Visit: Yes Status: Acute Plan to address problem: Patient currently on anticoagulation. (8) Full code status Current Visit: Yes Status: Acute Plan to address problem: Patient is a full code. The high probability of a clinically significant, sudden or life threatening deterioration of the [pulmonary] system(s) required my full and direct attention, intervention and personal management. The aggregate critical care ti me was [35] minutes. This time is in addition to time spent performing reported procedures but includes the following: [X] Data Review and interpretation [X] Patient assessment and monitoring of vital signs [X] Documentation [X] Medication orders and management History Interval history: Patient seen and examined sedated remains on full ventilatory support Hospitalist Physical - Physical exam Narrative exam: VITAL SIGNS: Reviewed. GENERAL: The patient appears normally developed, obese, on full mechanical support sedated vital signs as documented. HEAD: No signs of head trauma. EYES: Pupils are equal. . EARS: Able to examine due to sedation MOUTH: ET tube in place NECK: No adenopathy, no JVD. CHEST: Chest with diminished breath sounds bilaterally. No wheezes, rales, or rhonchi. CARDIAC: Regular rate and rhythm. S1 and S2, without murmurs, gallops, or ru bs. VASCULAR: No Edema. Peripheral pulses normal and equal in all extremities. ABDOMEN: Soft, non tender and non distended. No rebound or guarding, and no masses palpated. Bowel Sounds normal. MUSCULOSKELETAL: Good range of motion of all major joints. Extremities without clubbing, cyanosis or edema. NEUROLOGIC EXAM: Sedated PSYCHIATRIC: Sedated SKIN: detail exam as documented in skin assessment - Constitutional Vitals: Temp Pulse Resp BP Pulse Ox 98.4 F 85 19 116/60 98 03/08/21 07:00 03/08/21 08:15 03/08/21 06:00 03/08/21 08:15 03/08/21 08:15 General appearance: Present: well-nourished, obese, other (Intubated and sedated) HEART Score - HEART Score Troponin: Troponin T 0.085 ng/mL (0.00-0.029) H 03/07/21 20:31 Results - Labs CBC & Chem 7: 03/08/21 06:18 06/10/21 06:31 Labs: Laboratory Last Values WBC 27.5 K/mm3 (4.5-11.0) H 03/08/21 06:18 RBC 4.01 M/mm3 (3.65-5.03) 03/08/21 06:18 Hgb 11.1 gm/dl (10.1-14.3) 03/08/21 06:18 Hct 34.3 % (30.3-42.9) D 03/08/21 06:18 MCV 86 fl (79-97) 03/08/21 06:18 MCH 28 pg (28-32) 03/08/21 06:18 MCHC 32 % (30-34) 03/08/21 06:18 RDW 14.5 % (13.2-15.2) 03/08/21 06:18 Plt Count 108 K/mm3 (140-440) L 03/08/21 06:18 Lymph % (Auto) Grit Removal Operator 03/07/21 21:04 [place] % (Auto) Grit Removal Operator 03/07/21 21:04 Eos % (Auto) Grit Removal Operator 03/07/21 21:04 Baso % (Auto) Grit Removal Operator 03/07/21 21:04 Lymph # (Auto) Grit Removal Operator 03/07/21 21:04 [place] # (Auto) Grit Removal Operator 03/07/21 21:04 Eos # (Auto) Grit Removal Operator 03/07/21 21:04 Baso # (Auto) Grit Removal Operator 03/07/21 21:04 Add Manual Diff Complete 03/07/21 21:04 Total Counted 200 03/07/21 21:04 Seg Neutrophils % Grit Removal Operator 03/07/21 21:04 Seg Neuts % (Manual) 73.0 % (40.0-70.0) H 03/07/21 21:04 Band Neutrophils % 5.0 % 03/07/21 21:04 Lymphocytes % (Manual) 11.5 % (13.4-35.0) L 03/07/21 21:04 Monocytes % (Manual) 5.5 % (0.0-7.3) 03/07/21 21:04 Metamyelocytes % 4.0 % 03/07/21 21:04 Myelocytes % 1.0 % 03/07/21 21:04 Nucleated RBC % 7.0 % (0.0-0.9) H 03/07/21 21:04 Seg Neutrophils # Grit Removal Operator 03/07/21 21:04 Seg Neutrophils # Man 23.1 K/mm3 (1.8-7.7) H 03/07/21 21:04 Band Neutrophils # 1.6 K/mm3 03/07/21 21:04 Lymphocytes # (Manual) 3.6 K/mm3 (1.2-5.4) 03/07/21 21:04 Abs React Lymphs (Man) 0.0 K/mm3 03/07/21 21:04 Monocytes # (Manual) 1.7 K/mm3 (0.0-0.8) H 03/07/21 21:04 Eosinophils # (Manual) 0.0 K/mm3 (0.0-0.4) 03/07/21 21:04 Basophils # (Manual) 0.0 K/mm3 (0.0-0.1) 03/07/21 21:04 Metamyelocytes # 1.3 K/mm3 03/07/21 21:04 Myelocytes # 0.3 K/mm3 03/07/21 21:04 Promyelocytes # 0.0 K/mm3 03/07/21 21:04 Blast Cells # 0.0 K/mm3 03/07/21 21:04 WBC Morphology Not Reportable 03/07/21 21:04 Hypersegmented Neuts Not Reportable 03/07/21 21:04 Hyposegmented Neuts Not Reportable 03/07/21 21:04 Hypogranular Neuts Not Reportable 03/07/21 21:04 Smudge Cells Not Reportable 03/07/21 21:04 Toxic Granulation Not Reportable 03/07/21 21:04 Toxic Vacuolation Not Reportable 03/07/21 21:04 Dohle Bodies Not Reportable 03/07/21 21:04 Pelger-Huet Anomaly Not Reportable 03/07/21 21:04 Jarrett Rods Not Reportable 03/07/21 21:04 Platelet Estimate Cons 03/07/21 21:04 Clumped Platelets Not Reportable 03/07/21 21:04 Plt Clumps, EDTA Not Reportable 03/07/21 21:04 Large Platelets Few 03/07/21 21:04 Giant Platelets Not Reportable 03/07/21 21:04 Platelet Satelliting Not Reportable 03/07/21 21:04 Plt Morphology Comment Not Reportable 03/07/21 21:04 RBC Morphology Not Reportable 03/07/21 21:04 Dimorphic RBCs Not Reportable 03/07/21 21:04 Polychromasia Few 03/07/21 21:04 Hypochromasia Not Reportable 03/07/21 21:04 Poikilocytosis Not Reportable 03/07/21 21:04 Anisocytosis 1+ 03/07/21 21:04 Microcytosis Not Reportable 03/07/21 21:04 Macrocytosis Not Reportable 03/07/21 21:04 Spherocytes Not Reportable 03/07/21 21:04 Pappenheimer Bodies Not Reportable 03/07/21 21:04 Sickle Cells Not Reportable 03/07/21 21:04 Target Cells Not Reportable 03/07/21 21:04 Tear Drop Cells Not Reportable 03/07/21 21:04 Ovalocytes Not Reportable 03/07/21 21:04 Helmet Cells Not Reportable 03/07/21 21:04 [place] Bodies Not Reportable 03/07/21 21:04 [place] Rings Not Reportable 03/07/21 21:04 Brant Cells Not Reportable 03/07/21 21:04 Bite Cells Not Reportable 03/07/21 21:04 Crenated Cell Not Reportable 03/07/21 21:04 Elliptocytes Not Reportable 03/07/21 21:04 Acanthocytes (Spur) Not Reportable 03/07/21 21:04 Rouleaux Not Reportable 03/07/21 21:04 Hemoglobin C Crystals Not Reportable 03/07/21 21:04 Schistocytes Not Reportable 03/07/21 21:04 Malaria parasites Not Reportable 03/07/21 21:04 Joss Bodies Not Reportable 03/07/21 21:04 Hem Pathologist Commnt No 03/07/21 21:04 PT 18.5 Sec. (12.2-14.9) H 03/08/21 07:55 INR 1.49 (0.87-1.13) H 03/08/21 07:55 APTT 113.5 Sec. (24.2-36.6) H* 03/08/21 07:55 D-Dimer > 68566 ng/mlDDU (0-234) H 03/07/21 21:28 ABG pH 7.338 pH Units (7.350-7.450) L 03/07/21 Unknown ABG pCO2 39.5 mm Hg 03/07/21 Unknown ABG pO2 62.6 mm Hg (80.0-90.0) L 03/07/21 Unknown ABG HCO3 20.7 mmol/L (20.0-26.0) 03/07/21 Unknown ABG O2 Saturation 89.1 % (95.0-99.0) L 03/07/21 Unknown ABG O2 Content 15.1 (0.0-44) 03/07/21 Unknown ABG Base Excess -4.7 mmol/L (-2.0-3.0) L 03/07/21 Unknown ABG Hemoglobin 12.3 gm/dl (12.0-16.0) 03/07/21 Unknown ABG Carboxyhemoglobin 1.4 % (0.0-5.0) 03/07/21 Unknown ABG Methemoglobin 0.6 % (0.0-1.5) 03/07/21 Unknown Oxyhemoglobin 87.3 % (95.0-99.0) L 03/07/21 Unknown FiO2 100 % 03/07/21 Unknown Sodium 140 mmol/L (137-145) D 03/08/21 06:18 Potassium 3.9 mmol/L (3.6-5.0) 03/08/21 06:18 Chloride 105.6 mmol/L (98-107) 03/08/21 06:18 Carbon Dioxide 23 mmol/L (22-30) 03/08/21 06:18 Anion Gap 15 mmol/L 03/08/21 06:18 BUN 21 mg/dL (7-17) H 03/08/21 06:18 Creatinine 0.9 mg/dL (0.6-1.2) 03/08/21 06:18 Estimated GFR > 60 ml/min 03/08/21 06:18 BUN/Creatinine Ratio 23 % 03/08/21 06:18 Glucose 188 mg/dL (65-100) H 03/08/21 06:18 Lactic Acid 3.40 mmol/L (0.7-2.0) H* 03/07/21 22:48 Calcium 6.8 mg/dL (8.4-10.2) L D 03/08/21 06:18 Ferritin 148.8 ng/mL (10.0-200.0) 03/07/21 20:31 Total Bilirubin 0.70 mg/dL (0.1-1.2) 03/07/21 20:31 AST 34 units/L (5-40) 03/07/21 20:31 ALT 18 units/L (7-56) 03/07/21 20:31 Alkaline Phosphatase 122 units/L (35-129) 03/07/21 20:31 Lactate Dehydrogenase 1259 units/L (91-180) H 03/07/21 20:31 Troponin T 0.085 ng/mL (0.00-0.029) H 03/07/21 20:31 C-Reactive Protein 25.50 mg/dL (0.00-1.30) H 03/07/21 20:31 Total Protein 7.3 g/dL (6.3-8.2) 03/07/21 20:31 Albumin 3.5 g/dL (3.9-5) L 03/07/21 20:31 Albumin/Globulin Ratio 0.9 % 03/07/21 20:31 Triglycerides 213 mg/dL (2-149) H 03/07/21 20:31 Cholesterol 141 mg/dL (50-199) 03/07/21 20:31 LDL Cholesterol Direct 72 mg/dL (50-130) 03/07/21 20:31 HDL Cholesterol 34 mg/dL (40-59) L 03/07/21 20:31 Cholesterol/HDL Ratio 4.14 % 03/07/21 20:31 Procalcitonin 0.54 ng/mL (<0.15) 03/07/21 20:31 HCG, Qual Negative (Negative) 03/07/21 22:48 Urine Color Yellow (Yellow) 03/08/21 05:51 Urine Turbidity Clear (Clear) 03/08/21 05:51 Urine pH 6.0 (5.0-7.0) 03/08/21 05:51 Ur Specific [place] > 1.050 (1.003-1.030) H 03/08/21 05:51 Urine Protein 100 mg/dl mg/dL (Negative) 03/08/21 05:51 Urine Glucose (UA) Neg mg/dL (Negative) 03/08/21 05:51 Urine Ketones Neg mg/dL (Negative) 03/08/21 05:51 Urine Blood Neg (Negative) 03/08/21 05:51 Urine Nitrite Neg (Negative) 03/08/21 05:51 Urine Bilirubin Neg (Negative) 03/08/21 05:51 Urine Urobilinogen 4.0 mg/dL (<2.0) 03/08/21 05:51 Ur Leukocyte Esterase Neg (Negative) 03/08/21 05:51 Urine WBC (Auto) 5.0 /HPF (0.0-6.0) 03/08/21 05:51 Urine RBC (Auto) 5.0 /HPF (0.0-6.0) 03/08/21 05:51 U Epithel Cells (Auto) < 1.0 /HPF (0-13.0) 03/08/21 05:51 Urine Bacteria (Auto) 1+ /HPF (Negative) 03/08/21 05:51 Urine Mucus Few /HPF 03/08/21 05:51 Microbiology: Microbiology 03/07/21 20:31 Peripheral/Venous Blood Culture - Preliminary Culture in Progress 03/07/21 20:38 Peripheral/Venous Blood Culture - Preliminary Culture in Progress Maya/IV: Voiding Method Indwelling Catheter Active Medications - Current Medications Current Medications: Generic Name Dose Route Start Last Admin Trade Name Freq PRN Reason Stop Dose Admin Dextrose 50 ml 03/07/21 22:57 Dextrose 50% In Water (25gm) 50 Ml Syringe IV Q30MIN PRN Hypoglycemia Protocol Famotidine 20 mg 03/08/21 10:00 Famotidine 20 Mg/2 Ml Inj IV BID MARCO ANTONOI Fentanyl 50 mcg 03/07/21 21:20 03/07/21 22:13 Fentanyl 100 Mcg/2 Ml Inj IV 50 mcg Q10MIN PRN Administration ANALGESIA Heparin Sodium (Porcine) 8,000 unit 03/08/21 03:37 Heparin 10,000 Units/10 Ml Vial 40 unit/kg (8000 unit) IV Q6H PRN Anti-Xa Assay < 0.1 units/ml Propofol 1,000 mg in 100 mls @ 6 mls/hr 03/07/21 21:00 03/07/21 21:12 Diprivan 10 Mg/Ml IV 5 mcg/kg/min TITR MARCO ANTONIO 6 mls/hr Administration Protocol 5 MCG/KG/MIN Fentanyl Citrate 2,000 mcg in 100 mls @ 10 mls/hr 03/07/21 22:00 03/08/21 08:03 Fentanyl Drip Premix IV 2 mcg/kg/hr TITR MARCO ANTONIO 20 mls/hr Administration Protocol 1 MCG/KG/HR Norepinephrine 4 mg in 250 mls @ 7.5 mls/hr 03/07/21 23:45 03/08/21 07:50 Levophed Drip 4 Mg/Ns 250 Ml IV 2 mcg/min TITR MARCO ANTONIO 7.5 mls/hr Titration Protocol 2 MCG/MIN Sodium Chloride 1,000 mls @ 125 mls/hr 03/07/21 23:00 03/08/21 05:01 Nacl 0.9% 1000 Ml IV 125 mls/hr DIRECT MARCO ANTONIO Administration Ceftriaxone Sodium 2 gm in 100 mls @ 200 mls/hr 03/08/21 21:30 Rocephin/Ns 2 Gm/100 Ml IV Q24H MARCO ANTONIO Protocol Azithromycin 500 mg in 250 mls @ 250 mls/hr 03/08/21 22:00 Zithromax/Ns IV Q24H [facility] Protocol Heparin Sodium/Sodium Chloride 25,000 unit in 500 mls @ 30 mls/hr 03/08/21 04:00 03/08/21 05:01 Heparin/ 0.45% Nacl-25,000 Unit/500 Ml IV 1,500 units/hr TITR MARCO ANTONIO 30 mls/hr Administration Protocol 1,500 UNITS/HR Insulin Human Lispro 0 unit 03/08/21 12:00 Insulin Lispro 100 Unit/Ml SUB-Q Q6HR [facility] Protocol Magnesium Hydroxide 30 ml 03/07/21 22:57 Magnesium Hydroxide (Mom) Oral Liqd Udc PO Q4H PRN Constipation Morphine Sulfate 2 mg 03/07/21 22:57 Morphine 2 Mg/1 Ml Inj IV Q4H PRN Pain, Moderate (4-6) Ondansetron HCl 4 mg 03/07/21 22:57 Ondansetron 4 Mg/2 Ml Inj IV Q8H PRN Nausea And Vomiting Sodium Chloride 10 ml 03/08/21 10:00 Sodium Chloride 0.9% 10 Ml Flush Syringe IV BID MARCO ANTONIO Sodium Chloride 10 ml 03/07/21 22:57 Sodium Chloride 0.9% 10 Ml Flush Syringe IV PRN PRN LINE FLUSH
[2021-03-08] MEDS: dexAMETHasone 4 MG/ML VIAL IV SCH (10:57)
[2021-03-08] MEDS: FAMOTIDINE 20 MG/2 ML INJ IV SCH ×2 (10:57→21:02)
[2021-03-08 11:35] LABS: Band Neutrophils # (Manual) 3.3 K/mm3; Myelocytes # (Manual) 0.3 K/mm3; Total Cells Counted 100
[2021-03-08 11:36] LABS: Platelet Estimate Consistent w Auto; RBC Morphology Normal
--- NOTE | 2021-03-08 12:09 | Consultation ---
History of Present Illness Consult date: 03/08/21 Requesting physician: SONALI HARRIS Reason for consult: pneumonia, other (Acute Hypoxemic Respiratory Failure) History of present illness: PULMONARY/CCM CONSULT NOTE (Full dictation # [id number]) Please see dictated notes for full details Past History Past Medical History: No medical history Past Surgical History: No surgical history Social history: no significant social history Medications and Allergies Allergies Allergy/AdvReac Type Severity Reaction Status Date / Time No Known Allergies Allergy Unverified 03/07/21 19:59 Active Meds: Active Medications Dexamethasone (Dexamethasone 4 Mg/Ml Vial) 8 mg IV DAILY MARCO ANTONIO Last Admin: 03/08/21 10:57 Dose: 8 mg Documented by: Dextrose (Dextrose 50% In Water (25gm) 50 Ml Syringe) 50 ml IV Q30MIN PRN; Protocol PRN Reason: Hypoglycemia Famotidine (Famotidine 20 Mg/2 Ml Inj) 20 mg IV BID MARCO ANTONIO Last Admin: 03/08/21 10:57 Dose: 20 mg Documented by: Fentanyl (Fentanyl 100 Mcg/2 Ml Inj) 50 mcg IV Q10MIN PRN PRN Reason: ANALGESIA Last Admin: 03/07/21 22:13 Dose: 50 mcg Documented by: Heparin Sodium (Porcine) (Heparin 10,000 Units/10 Ml Vial) 8,000 unit 40 unit/k g (8000 unit) IV Q6H PRN PRN Reason: Anti-Xa Assay < 0.1 units/ml Propofol (Diprivan 10 Mg/Ml) 1,000 mg in 100 mls @ 3.084 mls/hr IV TITR MARCO ANTONIO; Protocol Last Admin: 03/08/21 08:48 Dose: 10 mcg/kg/min, 6.168 mls/hr Documented by: Fentanyl Citrate (Fentanyl Drip Premix) 2,000 mcg in 100 mls @ 5.14 mls/hr IV TITR MARCO ANTONIO; Protocol Last Admin: 03/08/21 08:03 Dose: 2 mcg/kg/hr, 20 mls/hr Documented by: Norepinephrine (Levophed Drip 4 Mg/Ns 250 Ml) 4 mg in 250 mls @ 7.5 mls/hr IV TITR MARCO ANTONIO; Protocol Last Titration: 03/08/21 08:15 Dose: 0 mcg/min, 0 mls/hr Documented by: Sodium Chloride (Nacl 0.9% 1000 Ml) 1,000 mls @ 125 mls/hr IV DIRECT MARCO ANTONIO Last Admin: 03/08/21 05:01 Dose: 125 mls/hr Documented by: Ceftriaxone Sodium (Rocephin/Ns 2 Gm/100 Ml) 2 gm in 100 mls @ 200 mls/hr IV Q 24H MARCO ANTONIO; Protocol Azithromycin (Zithromax/Ns) 500 mg in 250 mls @ 250 mls/hr IV Q24H MARCO ANTONIO; Protocol Heparin Sodium/Sodium Chloride (Heparin/ 0.45% Nacl-25,000 Unit/500 Ml) 25,000 unit in 500 mls @ 30 mls/hr IV TITR MARCO ANTONIO; Protocol Last Admin: 03/08/21 05:01 Dose: 1,500 units/hr, 30 mls/hr Documented by: Insulin Human Lispro (Insulin Lispro 100 Unit/Ml) 0 unit SUB-Q Q6HR MARCO ANTONIO; Protocol Magnesium Hydroxide (Magnesium Hydroxide (Mom) Oral Liqd Udc) 30 ml PO Q4H PRN PRN Reason: Constipation Morphine Sulfate (Morphine 2 Mg/1 Ml Inj) 2 mg IV Q4H PRN PRN Reason: Pain, Moderate (4-6) Ondansetron HCl (Ondansetron 4 Mg/2 Ml Inj) 4 mg IV Q8H PRN PRN Reason: Nausea And Vomiting Sodium Chloride (Sodium Chloride 0.9% 10 Ml Flush Syringe) 10 ml IV BID [facility] Last Admin: 03/08/21 10:58 Dose: 10 ml Documented by: Sodium Chloride (Sodium Chloride 0.9% 10 Ml Flush Syringe) 10 ml IV PRN PRN PRN Reason: LINE FLUSH Physical Examination Vital signs: Vital Signs Temp Pulse Resp Pulse Ox 97.4 F L 115 H 30 H 55 L 03/07/21 19:59 03/07/21 19:59 03/07/21 19:59 03/07/21 19:59 Results - Laboratory Findings CBC and BMP: 03/08/21 06:18 03/08/21 06:18 ABG ABG pH 7.311 (7.320-7.450) L 03/08/21 08:06 POC ABG pCO2 42.1 mmHg (32.0-48.0) 03/08/21 08:06 ABG pCO2 39.5 mm Hg 03/07/21 Unknown POC ABG pO2 93.8 mmHg (83-108) 03/08/21 08:06 ABG pO2 62.6 mm Hg (80.0-90.0) L 03/07/21 Unknown POC ABG HCO3 20.8 03/08/21 08:06 ABG O2 Saturation 96.4 (0-100) 03/08/21 08:06 PT/INR, D-dimer PT 18.5 Sec. (12.2-14.9) H 03/08/21 07:55 INR 1.49 (0.87-1.13) H 03/08/21 07:55 D-Dimer > 16492 ng/mlDDU (0-234) H 03/07/21 21:28 Abnormal lab findings: Abnormal Labs 03/07/21 03/07/21 03/07/21 20:31 20:31 20:31 WBC RDW Plt Count Seg Neuts % (Manual) Lymphocytes % (Manual) Nucleated RBC % Seg Neutrophils # Man Lymphocytes # (Manual) Monocytes # (Manual) PT INR APTT D-Dimer ABG pH ABG pO2 ABG O2 Saturation ABG Base Excess ABG Hemoglobin ABG Chloride ABG Glucose Oxyhemoglobin Carboxyhemoglobin Sodium 133 L Chloride 94.6 L Carbon Dioxide 17 L BUN 22 H Glucose 309 H 301 H POC Glucose Lactic Acid 5.10 H* Calcium Lactate Dehydrogenase 1259 H Troponin T 0.085 H C-Reactive Protein 25.50 H Albumin 3.5 L Triglycerides 213 H HDL Cholesterol 34 L Arterial Blood Glucose Arterial Blood Ionized Calcium Ur Specific [place] 03/07/21 03/07/21 03/07/21 21:04 21:28 21:28 WBC 31.6 H RDW 15.3 H Plt Count Seg Neuts % (Manual) 73.0 H Lymphocytes % (Manual) 11.5 L Nucleated RBC % 7.0 H Seg Neutrophils # Man 23.1 H Lymphocytes # (Manual) Monocytes # (Manual) 1.7 H PT INR APTT D-Dimer > 19137 H ABG pH ABG pO2 ABG O2 Saturation ABG Base Excess ABG Hemoglobin ABG Chloride ABG Glucose Oxyhemoglobin Carboxyhemoglobin Sodium Chloride Carbon Dioxide BUN Glucose POC Glucose Lactic Acid 6.00 H* Calcium Lactate Dehydrogenase Troponin T C-Reactive Protein Albumin Triglycerides HDL Cholesterol Arterial Blood Glucose Arterial Blood Ionized Calcium Ur Specific [place] 03/07/21 03/07/21 03/08/21 22:48 Unknown 05:51 WBC RDW Plt Count Seg Neuts % (Manual) Lymphocytes % (Manual) Nucleated RBC % Seg Neutrophils # Man Lymphocytes # (Manual) Monocytes # (Manual) PT INR APTT D-Dimer ABG pH 7.338 L ABG pO2 62.6 L ABG O2 Saturation 89.1 L ABG Base Excess -4.7 L ABG Hemoglobin ABG Chloride ABG Glucose Oxyhemoglobin 87.3 L Carboxyhemoglobin Sodium Chloride Carbon Dioxide BUN Glucose POC Glucose Lactic Acid 3.40 H* Calcium Lactate Dehydrogenase Troponin T C-Reactive Protein Albumin Triglycerides HDL Cholesterol Arterial Blood Glucose Arterial Blood Ionized Calcium Ur Specific [place] > 1.050 H 03/08/21 03/08/21 03/08/21 06:18 06:18 06:18 WBC 27.5 H RDW Plt Count 108 L Seg Neuts % (Manual) 85.0 H Lymphocytes % (Manual) 1.0 L Nucleated RBC % 7.0 H Seg Neutrophils # Man 23.4 H Lymphocytes # (Manual) 0.3 L Monocytes # (Manual) PT 20.3 H INR 1.69 H APTT D-Dimer ABG pH ABG pO2 ABG O2 Saturation ABG Base Excess ABG Hemoglobin ABG Chloride ABG Glucose Oxyhemoglobin Carboxyhemoglobin Sodium Chloride Carbon Dioxide BUN 21 H Glucose 188 H POC Glucose Lactic Acid Calcium 6.8 L D Lactate Dehydrogenase Troponin T C-Reactive Protein Albumin Triglycerides HDL Cholesterol Arterial Blood Glucose Arterial Blood Ionized Calcium Ur Specific [place] 03/08/21 03/08/21 03/08/21 07:29 07:55 08:06 WBC RDW Plt Count Seg Neuts % (Manual) Lymphocytes % (Manual) Nucleated RBC % Seg Neutrophils # Man Lymphocytes # (Manual) Monocytes # (Manual) PT 18.5 H INR 1.49 H APTT 113.5 H* D-Dimer ABG pH 7.311 L ABG pO2 ABG O2 Saturation ABG Base Excess ABG Hemoglobin 11.8 L ABG Chloride 111.0 H ABG Glucose 176 H Oxyhemoglobin Carboxyhemoglobin 0.4 L Sodium Chloride Carbon Dioxide BUN Glucose POC Glucose 192 H Lactic Acid Calcium Lactate Dehydrogenase Troponin T C-Reactive Protein Albumin Triglycerides HDL Cholesterol Arterial Blood Glucose 176 H Arterial Blood Ionized Calcium 4.1 L Ur Specific [place] 03/08/21 11:35 WBC RDW Plt Count Seg Neuts % (Manual) Lymphocytes % (Manual) Nucleated RBC % Seg Neutrophils # Man Lymphocytes # (Manual) Monocytes # (Manual) PT INR APTT D-Dimer ABG pH ABG pO2 ABG O2 Saturation ABG Base Excess ABG Hemoglobin ABG Chloride ABG Glucose Oxyhemoglobin Carboxyhemoglobin Sodium Chloride Carbon Dioxide BUN Glucose POC Glucose 142 H Lactic Acid Calcium Lactate Dehydrogenase Troponin T C-Reactive Protein Albumin Triglycerides HDL Cholesterol Arterial Blood Glucose Arterial Blood Ionized Calcium Ur Specific [place]
[2021-03-08] MEDS ORDERED: LIP THERAPY VASELINE TP PRN (12:42)
[2021-03-08] MEDS ORDERED: MINERAL OIL/PETROLATUM, WHITE OPHTH OINT 3.5 GM OU PRN (12:42)
[2021-03-08] MEDS: INSULIN LISPRO 100 UNIT/ML SUB-Q SCH ×2 (13:06→17:33)
--- NOTE | 2021-03-08 13:32 | Vascular Lab Report ---
DUPLEX DOPPLER LOWER EXTREMITY VEINS, BILATERAL INDICATION / CLINICAL INFORMATION: dvt. TECHNIQUE: Duplex doppler imaging was performed through the veins of both lower extremities using venous piero oscar and other maneuvers. COMPARISON: None available. FINDINGS: RIGHT COMMON FEMORAL VEIN: Negative. RIGHT FEMORAL VEIN: Negative. RIGHT POPLITEAL VEIN: Negative. RIGHT CALF VEINS: Negative. LEFT COMMON FEMORAL VEIN: Negative. LEFT FEMORAL VEIN: Negative. LEFT POPLITEAL VEIN: Positive for acute deep venous thrombosis involving the left posterior tibial an d peroneal veins. LEFT CALF VEINS: Negative. ADDITIONAL FINDINGS: None. IMPRESSION: 1. Positive for acute deep venous thrombosis involving the left posterior tibial and peroneal veins. Findings were reported by the card seller to the patient's physician Dr. Thayer at 1120 Signer Name: Phillip Maier MD Signed: 03/08/2021 1:28 PM Workstation Name: [id number]
[2021-03-08] MEDS ORDERED: LIPASE 10,500/PROTEASE 25,000/AMYLASE 43,750 (UNITS) DR CAP FEEDTUBE PRN (13:40)
[2021-03-08] MEDS ORDERED: SIMPLE SYRUP 15 ML FEEDTUBE PRN ×2 (13:40)
[2021-03-08] MEDS ORDERED: SODIUM BICARBONATE 325 MG TAB FEEDTUBE PRN (13:40)
--- NOTE | 2021-03-08 15:18 | Consultation ---
History of Present Illness - Reason for Consult Consult date: 03/08/21 - History of Present Illness 45-year-old female no past medical history presented to hospital complaining of cough, shortness of breath, diarrhea. This began 3 days prior to admission. On presentation to the hospital she is found to be in respiratory distress, and saturations were in the 50s on room air. She was intubated in the emergency room due to hypoxia. Reportedly she had not received COVID-19 vaccine. Afebrile since admission with a white count of 31.6. Covid positive. Normal renal function. Procalcitonin 0.54. Blood cultures no growth so far. Imaging personally reviewed: Chest x-ray: Diffuse pulmonary opacities Duplex ultrasound: DVT left leg. Chest CT a: Multiple small peripheral bilateral lower lobe pulmonary bullae Review of systems: Deferred to reduce to the risk of transmission of COVID-19 Past History Past Medical History: No medical history Past Surgical History: No surgical history Social history: no significant social history Medications and Allergies Allergies Allergy/AdvReac Type Severity Reaction Status Date / Time No Known Allergies Allergy Unverified 03/07/21 19:59 Active Meds: Active Medications Lipase/Protease/Amylase (Lipase 10,500/Protease 25,000/Amylase 43,750 (Units) Dr Coreas) 1 each FEEDTUBE PRN PRN PRN Reason: For Clogged Feeding Tube Dexamethasone (Dexamethasone 4 Mg/Ml Vial) 8 mg IV DAILY [facility] Stop: 03/17/21 10:01 Last Admin: 03/08/21 10:57 Dose: 8 mg Documented by: Dextrose (Dextrose 50% In Water (25gm) 50 Ml Syringe) 50 ml IV Q30MIN PRN; Protocol PRN Reason: Hypoglycemia Famotidine (Famotidine 20 Mg/2 Ml Inj) 20 mg IV BID [facility] Last Admin: 03/08/21 10:57 Dose: 20 mg Documented by: Fentanyl (Fentanyl 100 Mcg/2 Ml Inj) 50 mcg IV Q10MIN PRN PRN Reason: ANALGESIA Last Admin: 03/07/21 22:13 Dose: 50 mcg Documented by: Heparin Sodium (Porcine) (Heparin 10,000 Units/10 Ml Vial) 8,000 unit 40 unit/kg (8000 unit) IV Q6H PRN PRN Reason: Anti-Xa Assay < 0.1 units/ml Hydrophilic Ointment (Lip Therapy Vaseline) 1 applic TP Q2HR PRN PRN Reason: Dry Lips Propofol (Diprivan 10 Mg/Ml) 1,000 mg in 100 mls @ 3.084 mls/hr IV TITR [facility]; Protocol Last Admin: 03/08/21 08:48 Dose: 10 mcg/kg/min, 6.168 mls/hr Documented by: Fentanyl Citrate (Fentanyl Drip Premix) 2,000 mcg in 100 mls @ 5.14 mls/hr IV TITR [facility]; Protocol Last Admin: 03/08/21 08:03 Dose: 2 mcg/kg/hr, 20 mls/hr Documented by: Norepinephrine (Levophed Drip 4 Mg/Ns 250 Ml) 4 mg in 250 mls @ 7.5 mls/hr IV TITR [facility]; Protocol Last Titration: 03/08/21 08:15 Dose: 0 mcg/min, 0 mls/hr Documented by: Sodium Chloride (Nacl 0.9% 1000 Ml) 1,000 mls @ 125 mls/hr IV DIRECT [facility] Last Admin: 03/08/21 13:01 Dose: 125 mls/hr Documented by: Ceftriaxone Sodium (Rocephin/Ns 2 Gm/100 Ml) 2 gm in 100 mls @ 200 mls/hr IV Q24H [facility]; Protocol Azithromycin (Zithromax/Ns) 500 mg in 250 mls @ 250 mls/hr IV Q24H [facility]; Protocol Heparin Sodium/Sodium Chloride (Heparin/ 0.45% Nacl-25,000 Unit/500 Ml) 25,000 unit in 500 mls @ 30 mls/hr IV TITR [facility]; Protocol Last Admin: 03/08/21 05:01 Dose: 1,500 units/hr, 30 mls/hr Documented by: Insulin Human Lispro (Insulin Lispro 100 Unit/Ml) 0 unit SUB-Q Q6HR [facility]; Protocol Last Admin: 03/08/21 13:06 Dose: Not Given Documented by: Magnesium Hydroxide (Magnesium Hydroxide (Mom) Oral Liqd Udc) 30 ml PO Q4H PRN PRN Reason: Constipation Morphine Sulfate (Morphine 2 Mg/1 Ml Inj) 2 mg IV Q4H PRN PRN Reason: Pain, Moderate (4-6) Multi-Ingred Cream/Lotion/Oil/Oint (Mineral Oil/Petrolatum, White Ophth Oint 3.5 Gm) 1 applic OU Q4HR PRN PRN Reason: Dry Eye(s) Ondansetron HCl (Ondansetron 4 Mg/2 Ml Inj) 4 mg IV Q8H PRN PRN Reason: Nausea And Vomiting Senna/Docusate Sodium (Sennosides/Docusate Sodium 8.6/50 Mg Tab) 1 tab FEEDTUBE BID [facility] Simple Syrup (Simple Syrup 15 Ml) 15 ml FEEDTUBE PRN PRN PRN Reason: Hypoglycemia Simple Syrup (Simple Syrup 15 Ml) 30 ml FEEDTUBE PRN PRN PRN Reason: Hypoglycemia Sodium Bicarbonate (Sodium Bicarbonate 325 Mg Tab) 325 mg FEEDTUBE PRN PRN PRN Reason: For Clogged Feeding Tube Sodium Chloride (Sodium Chloride 0.9% 10 Ml Flush Syringe) 10 ml IV BID [facility] Last Admin: 03/08/21 10:58 Dose: 10 ml Documented by: Sodium Chloride (Sodium Chloride 0.9% 10 Ml Flush Syringe) 10 ml IV PRN PRN PRN Reason: LINE FLUSH Physical Examination - Physical Exam Narrative exam: Physical exam deferred to reduce risk of transmission of COVID-19. Please refer to primary team's note. - Constitutional Vitals: Vital Signs Temp Pulse Resp BP Pulse Ox 98.1 F 88 19 87/51 95 03/08/21 12:00 03/08/21 14:45 03/08/21 14:45 03/08/21 14:45 03/08/21 14:45 Temperature -Last 24 Hours Temperature 98.1 F Temperature 98.4 F Temperature 97.8 F Temperature 98 F Temperature 97.4 F Temperature 97.4 F Results - Labs CBC & Chem 7: 03/08/21 06:18 03/08/21 06:18 Labs: Abnormal lab results 03/07/21 03/07/21 03/07/21 Range/Units 13:00 20:31 20:31 WBC (4.5-11.0) K/mm3 RDW (13.2-15.2) % Plt Count (140-440) K/mm3 Seg Neuts % (Manual) (40.0-70.0) % Lymphocytes % (Manual) (13.4-35.0) % Nucleated RBC % (0.0-0.9) % Seg Neutrophils # Man (1.8-7.7) K/mm3 Lymphocytes # (Manual) (1.2-5.4) K/mm3 Monocytes # (Manual) (0.0-0.8) K/mm3 PT (12.2-14.9) Sec. INR (0.87-1.13) APTT (24.2-36.6) Sec. D-Dimer > 57009 H (0-234) ng/mlDDU Heparin Anti-Xa Level (0.3-0.7) U.I./ml ABG pH (7.350-7.450) pH Units ABG pO2 (80.0-90.0) mm Hg ABG O2 Saturation (95.0-99.0) % ABG Base Excess (-2.0-3.0) mmol/L ABG Hemoglobin (12.0-17.5) ABG Chloride (98-107) mmol/L ABG Glucose (65-95) mg/dL Oxyhemoglobin (95.0-99.0) % Carboxyhemoglobin (0.5-1.5) Sodium 133 L (137-145) mmol/L Chloride 94.6 L (98-107) mmol/L Carbon Dioxide 17 L (22-30) mmol/L BUN 22 H (7-17) mg/dL Glucose 309 H (65-100) mg/dL POC Glucose (70-105) mg/dL Lactic Acid 5.10 H* (0.7-2.0) mmol/L Calcium (8.4-10.2) mg/dL Lactate Dehydrogenase (91-180) units/L Troponin T 0.085 H (0.00-0.029) ng/mL C-Reactive Protein (0.00-1.30) mg/dL Albumin 3.5 L (3.9-5) g/dL Triglycerides 213 H (2-149) mg/dL HDL Cholesterol 34 L (40-59) mg/dL Arterial Blood Glucose (65-95) mg/dL Arterial Blood Ionized Calcium (4.6-5.3) mg/dL Ur Specific Cunningham (1.003-1.030) Coronavirus (PCR) (Negative) 03/07/21 03/07/21 03/07/21 Range/Units 20:31 21:04 21:28 WBC 31.6 H (4.5-11.0) K/mm3 RDW 15.3 H (13.2-15.2) % Plt Count (140-440) K/mm3 Seg Neuts % (Manual) 73.0 H (40.0-70.0) % Lymphocytes % (Manual) 11.5 L (13.4-35.0) % Nucleated RBC % 7.0 H (0.0-0.9) % Seg Neutrophils # Man 23.1 H (1.8-7.7) K/mm3 Lymphocytes # (Manual) (1.2-5.4) K/mm3 Monocytes # (Manual) 1.7 H (0.0-0.8) K/mm3 PT (12.2-14.9) Sec. INR (0.87-1.13) APTT (24.2-36.6) Sec. D-Dimer > 85734 H (0-234) ng/mlDDU Heparin Anti-Xa Level (0.3-0.7) U.I./ml ABG pH (7.350-7.450) pH Units ABG pO2 (80.0-90.0) mm Hg ABG O2 Saturation (95.0-99.0) % ABG Base Excess (-2.0-3.0) mmol/L ABG Hemoglobin (12.0-17.5) ABG Chloride (98-107) mmol/L ABG Glucose (65-95) mg/dL Oxyhemoglobin (95.0-99.0) % Carboxyhemoglobin (0.5-1.5) Sodium (137-145) mmol/L Chloride (98-107) mmol/L Carbon Dioxide (22-30) mmol/L BUN (7-17) mg/dL Glucose 301 H (65-100) mg/dL POC Glucose (70-105) mg/dL Lactic Acid (0.7-2.0) mmol/L Calcium (8.4-10.2) mg/dL Lactate Dehydrogenase 1259 H (91-180) units/L Troponin T (0.00-0.029) ng/mL C-Reactive Protein 25.50 H (0.00-1.30) mg/dL Albumin (3.9-5) g/dL Triglycerides (2-149) mg/dL HDL Cholesterol (40-59) mg/dL Arterial Blood Glucose (65-95) mg/dL Arterial Blood Ionized Calcium (4.6-5.3) mg/dL Ur Specific Cunningham (1.003-1.030) Coronavirus (PCR) (Negative) 03/07/21 03/07/21 03/07/21 Range/Units 21:28 22:48 Unknown WBC (4.5-11.0) K/mm3 RDW (13.2-15.2) % Plt Count (140-440) K/mm3 Seg Neuts % (Manual) (40.0-70.0) % Lymphocytes % (Manual) (13.4-35.0) % Nucleated RBC % (0.0-0.9) % Seg Neutrophils # Man (1.8-7.7) K/mm3 Lymphocytes # (Manual) (1.2-5.4) K/mm3 Monocytes # (Manual) (0.0-0.8) K/mm3 PT (12.2-14.9) Sec. INR (0.87-1.13) APTT (24.2-36.6) Sec. D-Dimer (0-234) ng/mlDDU Heparin Anti-Xa Level (0.3-0.7) U.I./ml ABG pH (7.350-7.450) pH Units ABG pO2 (80.0-90.0) mm Hg ABG O2 Saturation (95.0-99.0) % ABG Base Excess (-2.0-3.0) mmol/L ABG Hemoglobin (12.0-17.5) ABG Chloride (98-107) mmol/L ABG Glucose (65-95) mg/dL Oxyhemoglobin (95.0-99.0) % Carboxyhemoglobin (0.5-1.5) Sodium (137-145) mmol/L Chloride (98-107) mmol/L Carbon Dioxide (22-30) mmol/L BUN (7-17) mg/dL Glucose (65-100) mg/dL POC Glucose (70-105) mg/dL Lactic Acid 6.00 H* 3.40 H* (0.7-2.0) mmol/L Calcium (8.4-10.2) mg/dL Lactate Dehydrogenase (91-180) units/L Troponin T (0.00-0.029) ng/mL C-Reactive Protein (0.00-1.30) mg/dL Albumin (3.9-5) g/dL Triglycerides (2-149) mg/dL HDL Cholesterol (40-59) mg/dL Arterial Blood Glucose (65-95) mg/dL Arterial Blood Ionized Calcium (4.6-5.3) mg/dL Ur Specific Cunningham (1.003-1.030) Coronavirus (PCR) Positive A (Negative) 03/07/21 03/08/21 03/08/21 Range/Units Unknown 05:51 06:18 WBC 27.5 H (4.5-11.0) K/mm3 RDW (13.2-15.2) % Plt Count 108 L (140-440) K/mm3 Seg Neuts % (Manual) 85.0 H (40.0-70.0) % Lymphocytes % (Manual) 1.0 L (13.4-35.0) % Nucleated RBC % 7.0 H (0.0-0.9) % Seg Neutrophils # Man 23.4 H (1.8-7.7) K/mm3 Lymphocytes # (Manual) 0.3 L (1.2-5.4) K/mm3 Monocytes # (Manual) (0.0-0.8) K/mm3 PT (12.2-14.9) Sec. INR (0.87-1.13) APTT (24.2-36.6) Sec. D-Dimer (0-234) ng/mlDDU Heparin Anti-Xa Level (0.3-0.7) U.I./ml ABG pH 7.338 L (7.350-7.450) pH Units ABG pO2 62.6 L (80.0-90.0) mm Hg ABG O2 Saturation 89.1 L (95.0-99.0) % ABG Base Excess -4.7 L (-2.0-3.0) mmol/L ABG Hemoglobin (12.0-17.5) ABG Chloride (98-107) mmol/L ABG Glucose (65-95) mg/dL Oxyhemoglobin 87.3 L (95.0-99.0) % Carboxyhemoglobin (0.5-1.5) Sodium (137-145) mmol/L Chloride (98-107) mmol/L Carbon Dioxide (22-30) mmol/L BUN (7-17) mg/dL Glucose (65-100) mg/dL POC Glucose (70-105) mg/dL Lactic Acid (0.7-2.0) mmol/L Calcium (8.4-10.2) mg/dL Lactate Dehydrogenase (91-180) units/L Troponin T (0.00-0.029) ng/mL C-Reactive Protein (0.00-1.30) mg/dL Albumin (3.9-5) g/dL Triglycerides (2-149) mg/dL HDL Cholesterol (40-59) mg/dL Arterial Blood Glucose (65-95) mg/dL Arterial Blood Ionized Calcium (4.6-5.3) mg/dL Ur Specific Cunningham > 1.050 H (1.003-1.030) Coronavirus (PCR) (Negative) 03/08/21 03/08/21 03/08/21 Range/Units 06:18 06:18 07:29 WBC (4.5-11.0) K/mm3 RDW (13.2-15.2) % Plt Count (140-440) K/mm3 Seg Neuts % (Manual) (40.0-70.0) % Lymphocytes % (Manual) (13.4-35.0) % Nucleated RBC % (0.0-0.9) % Seg Neutrophils # Man (1.8-7.7) K/mm3 Lymphocytes # (Manual) (1.2-5.4) K/mm3 Monocytes # (Manual) (0.0-0.8) K/mm3 PT 20.3 H (12.2-14.9) Sec. INR 1.69 H (0.87-1.13) APTT (24.2-36.6) Sec. D-Dimer (0-234) ng/mlDDU Heparin Anti-Xa Level (0.3-0.7) U.I./ml ABG pH (7.350-7.450) pH Units ABG pO2 (80.0-90.0) mm Hg ABG O2 Saturation (95.0-99.0) % ABG Base Excess (-2.0-3.0) mmol/L ABG Hemoglobin (12.0-17.5) ABG Chloride (98-107) mmol/L ABG Glucose (65-95) mg/dL Oxyhemoglobin (95.0-99.0) % Carboxyhemoglobin (0.5-1.5) Sodium (137-145) mmol/L Chloride (98-107) mmol/L Carbon Dioxide (22-30) mmol/L BUN 21 H (7-17) mg/dL Glucose 188 H (65-100) mg/dL POC Glucose 192 H (70-105) mg/dL Lactic Acid (0.7-2.0) mmol/L Calcium 6.8 L D (8.4-10.2) mg/dL Lactate Dehydrogenase (91-180) units/L Troponin T (0.00-0.029) ng/mL C-Reactive Protein (0.00-1.30) mg/dL Albumin (3.9-5) g/dL Triglycerides (2-149) mg/dL HDL Cholesterol (40-59) mg/dL Arterial Blood Glucose (65-95) mg/dL Arterial Blood Ionized Calcium (4.6-5.3) mg/dL Ur Specific Cunningham (1.003-1.030) Coronavirus (PCR) (Negative) 03/08/21 03/08/21 03/08/21 Range/Units 07:55 08:06 11:35 WBC (4.5-11.0) K/mm3 RDW (13.2-15.2) % Plt Count (140-440) K/mm3 Seg Neuts % (Manual) (40.0-70.0) % Lymphocytes % (Manual) (13.4-35.0) % Nucleated RBC % (0.0-0.9) % Seg Neutrophils # Man (1.8-7.7) K/mm3 Lymphocytes # (Manual) (1.2-5.4) K/mm3 Monocytes # (Manual) (0.0-0.8) K/mm3 PT 18.5 H (12.2-14.9) Sec. INR 1.49 H (0.87-1.13) APTT 113.5 H* (24.2-36.6) Sec. D-Dimer (0-234) ng/mlDDU Heparin Anti-Xa Level (0.3-0.7) U.I./ml ABG pH 7.311 L (7.350-7.450) pH Units ABG pO2 (80.0-90.0) mm Hg ABG O2 Saturation (95.0-99.0) % ABG Base Excess (-2.0-3.0) mmol/L ABG Hemoglobin 11.8 L (12.0-17.5) ABG Chloride 111.0 H (98-107) mmol/L ABG Glucose 176 H (65-95) mg/dL Oxyhemoglobin (95.0-99.0) % Carboxyhemoglobin 0.4 L (0.5-1.5) Sodium (137-145) mmol/L Chloride (98-107) mmol/L Carbon Dioxide (22-30) mmol/L BUN (7-17) mg/dL Glucose (65-100) mg/dL POC Glucose 142 H (70-105) mg/dL Lactic Acid (0.7-2.0) mmol/L Calcium (8.4-10.2) mg/dL Lactate Dehydrogenase (91-180) units/L Troponin T (0.00-0.029) ng/mL C-Reactive Protein (0.00-1.30) mg/dL Albumin (3.9-5) g/dL Triglycerides (2-149) mg/dL HDL Cholesterol (40-59) mg/dL Arterial Blood Glucose 176 H (65-95) mg/dL Arterial Blood Ionized Calcium 4.1 L (4.6-5.3) mg/dL Ur Specific Cunningham (1.003-1.030) Coronavirus (PCR) (Negative) 03/08/21 Range/Units 13:00 WBC (4.5-11.0) K/mm3 RDW (13.2-15.2) % Plt Count (140-440) K/mm3 Seg Neuts % (Manual) (40.0-70.0) % Lymphocytes % (Manual) (13.4-35.0) % Nucleated RBC % (0.0-0.9) % Seg Neutrophils # Man (1.8-7.7) K/mm3 Lymphocytes # (Manual) (1.2-5.4) K/mm3 Monocytes # (Manual) (0.0-0.8) K/mm3 PT (12.2-14.9) Sec. INR (0.87-1.13) APTT (24.2-36.6) Sec. D-Dimer (0-234) ng/mlDDU Heparin Anti-Xa Level 0.22 L (0.3-0.7) U.I./ml ABG pH (7.350-7.450) pH Units ABG pO2 (80.0-90.0) mm Hg ABG O2 Saturation (95.0-99.0) % ABG Base Excess (-2.0-3.0) mmol/L ABG Hemoglobin (12.0-17.5) ABG Chloride (98-107) mmol/L ABG Glucose (65-95) mg/dL Oxyhemoglobin (95.0-99.0) % Carboxyhemoglobin (0.5-1.5) Sodium (137-145) mmol/L Chloride (98-107) mmol/L Carbon Dioxide (22-30) mmol/L BUN (7-17) mg/dL Glucose (65-100) mg/dL POC Glucose (70-105) mg/dL Lactic Acid (0.7-2.0) mmol/L Calcium (8.4-10.2) mg/dL Lactate Dehydrogenase (91-180) units/L Troponin T (0.00-0.029) ng/mL C-Reactive Protein (0.00-1.30) mg/dL Albumin (3.9-5) g/dL Triglycerides (2-149) mg/dL HDL Cholesterol (40-59) mg/dL Arterial Blood Glucose (65-95) mg/dL Arterial Blood Ionized Calcium (4.6-5.3) mg/dL Ur Specific Cunningham (1.003-1.030) Coronavirus (PCR) (Negative) Assessment and Plan Cultures: Blood culture no growth so far Covid PCR: Positive A/P: 45-year-old female no past medical history admitted with COVID-19 pneumonia and bilateral pulmonary emboli. #Severe COVID-19 pneumonia: Patient presented with 3 days of symptoms, chest x- ray with diffuse bilateral infiltrates, admission O2 sats 50% on room air. Inflammatory markers elevated #Acute hypoxemic respiratory failure: Likely secondary to COVID-19 infection. Currently on the vent #Bilateral pulmonary emboli: Anticoagulation per primary #Obesity: Associated with worse COVID-19 outcomes. Recs: -Dexamethasone 6 mg IV/PO daily for 10 days -Remdesivir 200 mg IV q day x 1 followed by 100 mg IV q day x 4 days -Actemra 8 mg/kg once given recent intubation -Obtain q48-72h inflammatory markers - ferritin, Ddimer, CRP, LDH -Continue ceftriaxone 2 gm IV qday and azithromycin 500 mg PO qday for 5 days -Anticoagulation per hospital protocol -Proning as able Thank you for the consult, we will continue to follow. MD [facility] ([facility] O: [phone] F: [phone] Recommendations:
--- NOTE | 2021-03-08 16:59 | XRay Report ---
ABDOMEN 1 VIEW(S) INDICATION: ngt placement COMPARISON: None available. FINDINGS: Nasogastric tube has tip in the fundus of the stomach Bowel gas pattern: Within normal limits. No dilated loops of large or small bowel. Free air: None. Calcified gallstones: None seen. Calcified urinary tract calculi: None seen. Additional Findings: None. Skeletal structures: No acute abnormality. IMPRESSION: 1. No acute findings. Signer Name: Alex Ayala MD Signed: 03/08/2021 4:55 PM Workstation Name: [id number]
[2021-03-08] MEDS ORDERED: TOCILIZUMAB 600 MG in SODIUM CHLORIDE 0.9% 100 ML IV ONE (17:30)
[2021-03-08] MEDS ORDERED: REMDESIVIR 200 MG in SODIUM CHLORIDE 0.9% 250ML 250 ML IV ONE (18:00)
[2021-03-08] MEDS ORDERED: SODIUM CHLORIDE 0.9% 50 ML IVPB IV ONE (18:30)
[2021-03-08] MEDS: AZITHROMYCIN/NS 500 MG/250 ML 500 MG/250 ML BAG IV SCH (21:02)
[2021-03-08] MEDS: cefTRIAXone/NS 2 GM/100 ML 2 GM/100 ML BAG IV SCH (21:03)
[2021-03-08] MEDS: SENNOSIDES/DOCUSATE SODIUM 8.6/50 MG TAB FEEDTUBE SCH (21:05)
[2021-03-08] MEDS ORDERED: ENOXAPARIN 40 MG/0.4 ML INJ SUB-Q SCH (22:00)
[2021-03-09] MEDS: INSULIN LISPRO 100 UNIT/ML SUB-Q SCH ×4 (00:15→18:44)
[2021-03-09] MEDS: MORPHINE 2 MG/1 ML INJ IV PRN ×2 (00:28→21:29)
[2021-03-09] MEDS: fentaNYL DRIP Premix 2,000 MCG/100 ML BAG IV SCH ×5 (00:32→19:53)
--- NOTE | 2021-03-09 02:06 | Consultation ---
DATE OF CONSULTATION: 03/08/2021 PULMONARY CRITICAL CARE CONSULT NOTE CONSULTING PHYSICIAN: Dr. Hi Palma. REASON FOR CONSULTATION: Acute hypoxemic respiratory failure, on mechanical ventilation support, bilateral pneumonia. CHIEF COMPLAINT AND HISTORY OF PRESENT ILLNESS: As follows: The patient is a 45-year-old obese female who denied any past medical history, presented to the Emergency Room yesterday complaining of cough, shortness of breath, diarrhea had been going on about 3 days. In the Emergency Room, she was extremely hungry. Initial O2 sats were reported to have been in the 50; however, she was placed on a nonrebreather; however, O2 sats got only into the 70s. While in the Emergency Room, she decompensated and required intubation and mechanical ventilatory support. We are asked to assist with management. She was also hypotensive at initial presentation. History was otherwise limited. There were no family members to give a history. She was found to have leukocytosis about 31,000. D-dimer was significantly elevated. A CT angiogram of the chest reportedly showed multiple peripheral bilateral lower lobe pulmonary emboli. She was brought into the Intensive Care Unit and we are asked to assist with management. When I stopped by to see her, she was resting in bed. She remained on mechanical ventilator, assist control, tidal volume 450, rate of 20, PEEP of 10 on 90% FIO2 with O2 sats about 97%. She was sedated on a Diprivan drip and fentanyl drip at that time. Lower extremity Dopplers were being done and did show acute DVT, I believe in the left lower extremity while I was in the room. With regards to the patient's tobacco use/abuse history that history is unknown. The above is as much of the history of presentation as I have. PAST MEDICAL HISTORY: Obesity. PAST SURGICAL HISTORY: Unknown. MEDICATIONS: She was on at the time I stopped by to see according to the medication administration record included the following: Zithromax 500 mg IV daily, Rocephin 2 mg IV daily, Decadron 8 mg IV daily, Pepcid 20 mg IV b.i.d., fentanyl drip was going at 2 mcg/kg per hour. She was on IV heparin protocol for pulmonary embolism, started at 1500 units per hour. She was on insulin via sliding scale, Levophed drip had been going at 4 mcg per minute, Zofran 4 mg IV q. 8 hours p.r.n. nausea and vomiting. Propofol drip was going at 10 mcg per kilogram per minute. ALLERGIES: No known drug allergies. DIET: Obese lady. Acute weight loss or gain history is unknown. FAMILY AND SOCIAL HISTORY: Apparently lived in the community; however, alcohol, tobacco, illicit drug use or abuse and other family history is unobtainable. REVIEW OF SYSTEMS: Also unobtainable secondary to the patient's medical and mental condition. Since she has been here, no gross hematochezia or melena, no gross hematuria, no hematemesis, no bloody tracheal secretions have been reported. Had no witnessed seizures. Review of systems is otherwise unobtainable or as in the body of the history above. PHYSICAL EXAMINATION: VITAL SIGNS: At presentation, she was afebrile, temperature 97.4 degrees Fahrenheit and of note, she has been afebrile since admission. Admission pulse was 115, respiratory rate was as high as in the 40s, O2 sats initially 55%, I believe on room air, blood pressure was as low as 84/55 in the Emergency Room. GENERAL: Again, obese, middle-aged female. Normocephalic, atraumatic. Resting in bed without significant patient-ventilator dyssynchrony. HEAD, EYES, EARS, NOSE, AND THROAT: Anicteric. No conjunctival erythema. Oropharynx was moist. She had an ET tube in place, taped around 24 cm at the lips. No gross jugular venous distention, no thyromegaly. She did have a large neck circumference. Grossly, there were no palpable lymph nodes in the supraclavicular or submandibular lymph node chains. LUNGS: Auscultation of both lung pedersen significant for bilateral rales, no active wheezing. She did have a right upper anterior chest wall/right neck central line in place. No significant bleeding around the stoma. HEART: Sounds 1 and 2 are heard. They were regular rate and rhythm without overt rubs or murmurs. ABDOMEN: Soft, full, bowel sounds are positive, nontender, protuberant. No palpable hepatosplenomegaly. EXTREMITIES: Without overt digital clubbing or cyanosis. She had trace pedal edema. Pedal pulses were 2+ bilaterally. NEUROLOGIC: Pupils were equal, round, about 2 mm, sluggishly reactive to light. She had spontaneous movements to all extremities. SKIN: Normal turgor in the areas examined without overt cellulitis or rash. Please see the wound care nurses' notes for full description of skin. PSYCHIATRIC: Mood and affect could not be assessed, nor could insight and judgment. She was sedated. LABORATORY DATA: From my review, admission white cell count 31,600, hemoglobin 13.7, hematocrit 42.3, platelet count 165, is down to 108 today. 12% band forms on the manual differential. INR was 1.49. D-dimer was greater than 10,000. Arterial blood gas most recently shows a pH of 7.31, pCO2 of 42, pO2 of 94 and that being on 100% FIO2, PEEP of 10 above-mentioned vent settings. Serum sodium was 133 at presentation, potassium was 4.2, chloride 95, bicarbonate 17, BUN 22, creatinine 0.9, glucose 301. Bicarbonate is up to 23 now. Lactic acid level was 3.4, went up to 6.0 and was directed down to 5.1. Liver function tests essentially within normal limits. LDH was elevated at 1259. Troponin 0.085. CRP of 25.5. Procalcitonin 0.54. Urine test was negative. Urinalysis was negative for nitrites and leukocyte esterase and really unremarkable otherwise. Two sets of blood cultures are no growth to date. Chest x-ray at presentation showed the bilateral pulmonary infiltrates. Most recent chest x-ray shows endotracheal tube tip in good position at the level of the aortic knob, right IJ central line tip at the distal SVC/right atrial junction, patchy bilateral pulmonary infiltrates, borderline cardiomegaly, no pneumothorax. CT angio was done. I have also reviewed the CT angio, good contrast phase timing. I do see the pulmonary emboli of note in both lower lobe trunks; however, no central large pulmonary emboli. Lung windows, so extensive bilateral consolidation involving both lungs significantly. ASSESSMENT: 1. Acute hypoxemic respiratory failure, on mechanical ventilatory support. 2. Severe sepsis with shock secondary to #3. 3. Bilateral pneumonia. 4. Person under investigation for COVID-19 infection. 5. Obesity. 6. Bilateral pulmonary emboli. 7. Leukocytosis. 8. Thrombocytopenia. 9. Elevated serum inflammatory markers to include D-dimer and LDH. 10. Metabolic acidosis. 11. Lactic acidosis. 12. Non-ST elevation myocardial infarction. 13. Oropharyngeal dysphagia. PLAN: We will keep her on full mechanical ventilatory support. She is going to be kept in contact and airborne precautions. In the meantime, coronavirus PCR test has been sent. Oxygen will be weaned to keep sats greater than or equal to about 92%. Aspiration precautions will be maintained. Ventilator-associated pneumonia bundle has been introduced. Glycemic control will be for target blood glucose of 140-180 mg/dL while critically ill. We will continue with IV heparin. Pulmonary emboli protocol for now while keeping an eye on her platelet count. She does have multiple reasons for thrombocytopenia to include just the sepsis alone, but also possible heparin related reactions, which I doubt at this point in time. Cardiology evaluation is ongoing. I will defer to the attending physician for cardiology consultation. Consideration will be given for a 2D echo in light of the bilateral infiltrates to rule out pulmonary edema ____ , but also possible septic emboli. Check for vegetations. We will continue empiric coverage for community-acquired pneumonia therapy. We will continue IV Decadron for oxygen dependent, likely coronavirus-19 infection. We will trend inflammatory markers to help guide clinical decision making. I will repeat the lactic acid level in the morning. Volume hydration will be ordered. I am going to put her on IV normal saline running at about 100 mL per hour for about a couple more liters at least and reevaluate. She is appropriately on GI prophylaxis. She is fully anticoagulated. Sedation will be targeted for a RASS scale of -2 to -3 at this point. Flu and pneumonia vaccination will be addressed per protocol. Levophed will be weaned to keep mean arterial pressures greater than or equal to about 65 mmHg. Thank you very much for the consult. We will follow along and make further recommendations as picture progresses/becomes clearer. Of note, enteral nutrition will be the feeding modality of choice. At this point, I have spent about 35-40 minutes of critical care time without overlap and excluding any procedural time that may be necessary. She is critically ill on life-sustaining interventions including full mechanical ventilatory support and vasopressors at very high risk of from cardiopulmonary system decompensation and hematologic system. At this point, again, as mentioned above, 40 minutes of critical care time without overlap excluding any procedural time that may be necessary. TID: [id number] RECEIPT: [id number] SHAYE/MICHAEL/JULIAN EVANSD
--- NOTE | 2021-03-09 05:53 | XRay Report ---
CHEST 1 VIEW INDICATION / CLINICAL INFORMATION: follow up respiratory failure. Patient has PTE COMPARISON: 03/08/2021 at 1641 hours FINDINGS: SUPPORT DEVICES: Stable, satisfactory device positioning. HEART / MEDIASTINUM: No significant abnormality. LUNGS / PLEURA: Marked bilateral pulmonary opacities persist not appreciably changed. No visible pleu ral effusion. No pneumothorax. ADDITIONAL FINDINGS: No significant additional findings. IMPRESSION: 1. Stable appearance of the chest radiograph. Signer Name: Meryl Aguila MD Signed: 03/09/2021 5:48 AM Workstation Name: [id number]
[2021-03-09] MEDS: SODIUM CHLORIDE 0.9% 1000 ML 1,000 ML IV SCH (06:10)
[2021-03-09 07:31] LABS: Alanine Aminotransferase 16 units/L (7-56); Albumin 2.5 g/dL (3.9-5); Blood Urea Nitrogen 22 mg/dL (7-17); Calcium 6.7 mg/dL (8.4-10.2); Hemolysis Index 1
[2021-03-09 07:51] LABS: BUN/Creatinine Ratio 37
[2021-03-09] MEDS: SENNOSIDES/DOCUSATE SODIUM 8.6/50 MG TAB FEEDTUBE SCH ×2 (10:26→21:49)
[2021-03-09] MEDS: dexAMETHasone 4 MG/ML VIAL IV SCH (10:26)
[2021-03-09] MEDS: FAMOTIDINE 20 MG/2 ML INJ IV SCH ×2 (10:27→21:49)
[2021-03-09] MEDS: HEPARIN/ 0.45% NACL DRIP 25,000 UNIT/500 ML BAG IV SCH (10:42)
--- NOTE | 2021-03-09 10:43 | Progress Note ---
Assessment and Plan Cultures: Blood culture no growth so far Covid PCR: Positive A/P: 45-year-old female no past medical history admitted with COVID-19 pneumonia and bilateral pulmonary emboli. #Severe COVID-19 pneumonia: Patient presented with 3 days of symptoms, chest x- ray with diffuse bilateral infiltrates, admission O2 sats 50% on room air. Inflammatory markers elevated #Acute hypoxemic respiratory failure: Likely secondary to COVID-19 infection. Currently on the vent #Bilateral pulmonary emboli: Anticoagulation per primary #Obesity: Associated with worse COVID-19 outcomes. Recs: -Dexamethasone 6 mg IV/PO daily for 10 days -Remdesivir 200 mg IV q day x 1 followed by 100 mg IV q day x 4 days -Actemra 8 mg/kg once given recent intubation -Obtain q48-72h inflammatory markers - ferritin, Ddimer, CRP, LDH -Continue ceftriaxone 2 gm IV qday and azithromycin 500 mg PO qday for 5 days given elevated procal -Anticoagulation per hospital protocol -Proning as able Thank you for the consult, we will continue to follow. Lay Finch MD [facility] ([facility] O: [phone] F: [phone] Subjective Date of service: 03/09/21 Interval history: Afebrile, no acute change. Remains on vent. Imaging personally reviewed: Chest x-ray: Stable Objective - Exam Narrative Exam: Physical exam deferred to reduce risk of transmission of COVID-19. Please refer to primary team's note. - Constitutional Vitals: Vital Signs Temp Pulse Resp BP Pulse Ox 99.1 F 97 H 18 92/62 92 03/09/21 07:00 03/09/21 08:20 03/09/21 08:15 03/09/21 08:20 03/09/21 08:20 Temperature -Last 24 Hours Temperature 99.1 F Temperature 98.8 F Temperature 98.1 F Temperature 98.3 F Temperature 98.1 F - Labs CBC & Chem 7: 03/08/21 06:18 03/09/21 06:31 Labs: Abnormal lab results 03/07/21 03/07/21 03/08/21 Range/Units 13:00 Unknown 06:18 Seg Neuts % (Manual) 85.0 H (40.0-70.0) % Lymphocytes % (Manual) 1.0 L (13.4-35.0) % Nucleated RBC % 7.0 H (0.0-0.9) % Seg Neutrophils # Man 23.4 H (1.8-7.7) K/mm3 Lymphocytes # (Manual) 0.3 L (1.2-5.4) K/mm3 D-Dimer > 67509 H (0-234) ng/mlDDU Heparin Anti-Xa Level (0.3-0.7) U.I./ml POC ABG pCO2 (32.0-48.0) mmHg POC ABG pO2 (83-108) mmHg ABG Hemoglobin (12.0-17.5) ABG Oxyhemoglobin (94-98) ABG Chloride (98-107) mmol/L ABG Glucose (65-95) mg/dL Carboxyhemoglobin (0.5-1.5) Chloride (98-107) mmol/L Carbon Dioxide (22-30) mmol/L BUN (7-17) mg/dL Glucose (65-100) mg/dL POC Glucose (70-105) mg/dL Calcium (8.4-10.2) mg/dL Total Protein (6.3-8.2) g/dL Albumin (3.9-5) g/dL Arterial Blood Glucose (65-95) mg/dL Arterial Blood Ionized Calcium (4.6-5.3) mg/dL Coronavirus (PCR) Positive A (Negative) 03/08/21 03/08/21 03/08/21 Range/Units 07:29 11:35 13:00 Seg Neuts % (Manual) (40.0-70.0) % Lymphocytes % (Manual) (13.4-35.0) % Nucleated RBC % (0.0-0.9) % Seg Neutrophils # Man (1.8-7.7) K/mm3 Lymphocytes # (Manual) (1.2-5.4) K/mm3 D-Dimer (0-234) ng/mlDDU Heparin Anti-Xa Level 0.22 L (0.3-0.7) U.I./ml POC ABG pCO2 (32.0-48.0) mmHg POC ABG pO2 (83-108) mmHg ABG Hemoglobin (12.0-17.5) ABG Oxyhemoglobin (94-98) ABG Chloride (98-107) mmol/L ABG Glucose (65-95) mg/dL Carboxyhemoglobin (0.5-1.5) Chloride (98-107) mmol/L Carbon Dioxide (22-30) mmol/L BUN (7-17) mg/dL Glucose (65-100) mg/dL POC Glucose 192 H 142 H (70-105) mg/dL Calcium (8.4-10.2) mg/dL Total Protein (6.3-8.2) g/dL Albumin (3.9-5) g/dL Arterial Blood Glucose (65-95) mg/dL Arterial Blood Ionized Calcium (4.6-5.3) mg/dL Coronavirus (PCR) (Negative) 03/08/21 03/08/21 03/08/21 Range/Units 16:59 21:00 21:19 Seg Neuts % (Manual) (40.0-70.0) % Lymphocytes % (Manual) (13.4-35.0) % Nucleated RBC % (0.0-0.9) % Seg Neutrophils # Man (1.8-7.7) K/mm3 Lymphocytes # (Manual) (1.2-5.4) K/mm3 D-Dimer (0-234) ng/mlDDU Heparin Anti-Xa Level (0.3-0.7) U.I./ml POC ABG pCO2 30.1 L (32.0-48.0) mmHg POC ABG pO2 74.9 L (83-108) mmHg ABG Hemoglobin 10.0 L (12.0-17.5) ABG Oxyhemoglobin 93.8 L (94-98) ABG Chloride 113.0 H (98-107) mmol/L ABG Glucose 250 H (65-95) mg/dL Carboxyhemoglobin 0.3 L (0.5-1.5) Chloride (98-107) mmol/L Carbon Dioxide (22-30) mmol/L BUN (7-17) mg/dL Glucose (65-100) mg/dL POC Glucose 196 H 250 H (70-105) mg/dL Calcium (8.4-10.2) mg/dL Total Protein (6.3-8.2) g/dL Albumin (3.9-5) g/dL Arterial Blood Glucose 250 H (65-95) mg/dL Arterial Blood Ionized Calcium 4.0 L (4.6-5.3) mg/dL Coronavirus (PCR) (Negative) 03/08/21 03/09/21 03/09/21 Range/Units 21:30 03:14 05:26 Seg Neuts % (Manual) (40.0-70.0) % Lymphocytes % (Manual) (13.4-35.0) % Nucleated RBC % (0.0-0.9) % Seg Neutrophils # Man (1.8-7.7) K/mm3 Lymphocytes # (Manual) (1.2-5.4) K/mm3 D-Dimer (0-234) ng/mlDDU Heparin Anti-Xa Level 0.16 L (0.3-0.7) U.I./ml POC ABG pCO2 31.0 L (32.0-48.0) mmHg POC ABG pO2 80.4 L (83-108) mmHg ABG Hemoglobin 9.4 L (12.0-17.5) ABG Oxyhemoglobin (94-98) ABG Chloride 114.0 H (98-107) mmol/L ABG Glucose 249 H (65-95) mg/dL Carboxyhemoglobin 0.3 L (0.5-1.5) Chloride (98-107) mmol/L Carbon Dioxide (22-30) mmol/L BUN (7-17) mg/dL Glucose (65-100) mg/dL POC Glucose 217 H (70-105) mg/dL Calcium (8.4-10.2) mg/dL Total Protein (6.3-8.2) g/dL Albumin (3.9-5) g/dL Arterial Blood Glucose 249 H (65-95) mg/dL Arterial Blood Ionized Calcium 4.1 L (4.6-5.3) mg/dL Coronavirus (PCR) (Negative) 03/09/21 Range/Units 06:31 Seg Neuts % (Manual) (40.0-70.0) % Lymphocytes % (Manual) (13.4-35.0) % Nucleated RBC % (0.0-0.9) % Seg Neutrophils # Man (1.8-7.7) K/mm3 Lymphocytes # (Manual) (1.2-5.4) K/mm3 D-Dimer (0-234) ng/mlDDU Heparin Anti-Xa Level (0.3-0.7) U.I./ml POC ABG pCO2 (32.0-48.0) mmHg POC ABG pO2 (83-108) mmHg ABG Hemoglobin (12.0-17.5) ABG Oxyhemoglobin (94-98) ABG Chloride (98-107) mmol/L ABG Glucose (65-95) mg/dL Carboxyhemoglobin (0.5-1.5) Chloride 110.6 H (98-107) mmol/L Carbon Dioxide 20 L (22-30) mmol/L BUN 22 H (7-17) mg/dL Glucose 244 H (65-100) mg/dL POC Glucose (70-105) mg/dL Calcium 6.7 L (8.4-10.2) mg/dL Total Protein 5.6 L D (6.3-8.2) g/dL Albumin 2.5 L (3.9-5) g/dL Arterial Blood Glucose (65-95) mg/dL Arterial Blood Ionized Calcium (4.6-5.3) mg/dL Coronavirus (PCR) (Negative)
--- NOTE | 2021-03-09 11:00 | Progress Note ---
Assessment and Plan Assessment and plan: 45-year-old female with no significant past medical history Presenting to the emergency room today complaining of cough, shortness of breath and diarrhea for about 3 days. Patient was found to be in respiratory distress upon arrival in the emergency room. Initial oxygen saturation was said to be in the 50s and patient was subsequently placed on a nonrebreather with with improvement of oxygen saturation to the 70s. Patient was subsequently intubated in the emergency room. Most of the history was gotten from the emergency room staff as patient was already intubated. Family members were also not available. Review of patient's record indicates she has not received vaccination against the COVID-19. Work-up in the emergency room today reveals bilateral pulmonary infiltrate on the chest x-ray. Labs reveals significant leukocytosis of 31,000, hyperglycemia with blood glucose of 301, D-dimer was also significantly elevated and greater than 10,000. CT angiogram of the chest reveals multiple peripheral bilateral lower lobe pulmonary emboli. Patient became hypotensive and was given IV fluid and started on pressors in the ER. Patient has been admitted for a pneumonia with septic shock, pulmonary emboli and will also rule out COVID-19 infection. 03/08: New issues: Thrombocytosis question if this is secondary to HIT. We will send out HIT panel. Monitor platelets. Continue heparin drip at this time. Await pulmonary and ID input. 03/09: Patient noted to have Covid positive pneumonia ID input is appreciated patient on dexamethasone for complete 10 days of therapy now started on remdesi vir due to hypoxia also to complete 5 days therapy and Actemra a one-time. We will continue to monitor -Obtain q48-72h inflammatory markers - ferritin, Ddimer, CRP, LDH -Continue ceftriaxone 2 gm IV qday and azithromycin 500 mg PO qday for 5 days given elevated procal -Anticoagulation per hospital protocol -Proning as able I also requested a stat CBC to further evaluate thrombocytosis that was noted yesterday. I called maría elena Serafin David to update and got voicemail left a message. I also called James Hernandez but his phone is unable to accept messages at this time. (1) Pneumonia Current Visit: Yes Status: Acute Plan to address problem: Patient commenced on empiric IV antibiotics. We will await culture results. (2) Hyperglycemia Current Visit: Yes Status: Acute Plan to address problem: Patient has no known history of diabetes mellitus. Will monitor blood glucose and also check hemoglobin A1c. (3) Respiratory failure Current Visit: Yes Status: Acute Plan to address problem: Possibly secondary to the pneumonia. Patient currently intubated. Consult placed to die cast technician for further evaluation. (4) Septic shock Current Visit: Yes Status: Acute Plan to address problem: Secondary to the pneumonia. Patient has been started on empiric IV antibiotics ,IV fluid and pressors. Will monitor labs closely. (5) 2019 novel coronavirus infection-confirmed Current Visit: Yes Status: Acute Plan to address problem: We await COVID-[address] patient on isolation precautions. We will commence patient on IV steroid and also place consult to infectious disease . (6) Pulmonary embolism Current Visit: Yes Status: Acute Plan to address problem: Patient started on anticoagulation with heparin drip. (7) DVT prophylaxis Current Visit: Yes Status: Acute Plan to address problem: Patient currently on anticoagulation. (8) Full code status Current Visit: Yes Status: Acute Plan to address problem: Patient is a full code. The high probability of a clinically significant, sudden or life threatening deterioration of the [pulmonary] system(s) required my full and direct attention, intervention and personal management. The aggregate critical care time was [35] minutes. This time is in addition to time spent performing reported procedures but includes the following: [X] Data Review and interpretation [X] Patient assessment and monitoring of vital signs [X] Documentation [X] Medication orders and management History Interval history: Patient seen and examined sedated remains on full ventilatory support Hospitalist Physical - Physical exam Narrative exam: VITAL SIGNS: Reviewed. GENERAL: The patient appears normally developed, obese, on full mechanical support sedated vital signs as documented. HEAD: No signs of head trauma. EYES: Pupils are equal. . EARS: Able to examine due to sedation MOUTH: ET tube in place NECK: No adenopathy, no JVD. CHEST: Chest with diminished breath sounds bilaterally. No wheezes, rales, or rhonchi. CARDIAC: Regular rate and rhythm. S1 and S2, without murmurs, gallops, or rubs. VASCULAR: No Edema. Peripheral pulses normal and equal in all extremities. ABDOMEN: Soft, non tender and non distended. No rebound or guarding, and no masses palpated. Bowel Sounds normal. MUSCULOSKELETAL: Good range of motion of all major joints. Extremities without clubbing, cyanosis or edema. NEUROLOGIC EXAM: Sedated PSYCHIATRIC: Sedated SKIN: detail exam as documented in skin assessment - Constitutional Vitals: Temp Pulse Resp BP Pulse Ox 99.1 F 97 H 18 92/62 92 03/09/21 07:00 03/09/21 08:20 03/09/21 08:15 03/09/21 08:20 03/09/21 08:20 General appearance: Present: well-nourished, obese, other (Intubated and sedated) HEART Score - HEART Score Troponin: Troponin T 0.085 ng/mL (0.00-0.029) H 03/07/21 20:31 Results - Labs CBC & Chem 7: 03/08/21 06:18 03/09/21 06:31 Labs: Laboratory Last Values WBC 27.5 K/mm3 (4.5-11.0) H 03/08/21 06:18 RBC 4.01 M/mm3 (3.65-5.03) 03/08/21 06:18 Hgb 11.1 gm/dl (10.1-14.3) 03/08/21 06:18 Hct 34.3 % (30.3-42.9) D 03/08/21 06:18 MCV 86 fl (79-97) 03/08/21 06:18 MCH 28 pg (28-32) 03/08/21 06:18 MCHC 32 % (30-34) 03/08/21 06:18 RDW 14.5 % (13.2-15.2) 03/08/21 06:18 Plt Count 108 K/mm3 (140-440) L 03/08/21 06:18 Lymph % (Auto) Inspector Set Up And Lay Out 03/07/21 21:04 Coke % (Auto) Inspector Set Up And Lay Out 03/07/21 21:04 Eos % (Auto) Inspector Set Up And Lay Out 03/07/21 21:04 Baso % (Auto) Inspector Set Up And Lay Out 03/07/21 21:04 Lymph # (Auto) Inspector Set Up And Lay Out 03/07/21 21:04 Coke # (Auto) Inspector Set Up And Lay Out 03/07/21 21:04 Eos # (Auto) Inspector Set Up And Lay Out 03/07/21 21:04 Baso # (Auto) Inspector Set Up And Lay Out 03/07/21 21:04 Add Manual Diff Complete 03/08/21 06:18 Total Counted 100 03/08/21 06:18 Seg Neutrophils % Inspector Set Up And Lay Out 03/07/21 21:04 Seg Neuts % (Manual) 85.0 % (40.0-70.0) H 03/08/21 06:18 Band Neutrophils % 12.0 % 03/08/21 06:18 Lymphocytes % (Manual) 1.0 % (13.4-35.0) L 03/08/21 06:18 Monocytes % (Manual) 1.0 % (0.0-7.3) 03/08/21 06:18 Metamyelocytes % 4.0 % 03/07/21 21:04 Myelocytes % 1.0 % 03/08/21 06:18 Nucleated RBC % 7.0 % (0.0-0.9) H 03/08/21 06:18 Seg Neutrophils # Inspector Set Up And Lay Out 03/07/21 21:04 Seg Neutrophils # Man 23.4 K/mm3 (1.8-7.7) H 03/08/21 06:18 Band Neutrophils # 3.3 K/mm3 03/08/21 06:18 Lymphocytes # (Manual) 0.3 K/mm3 (1.2-5.4) L 03/08/21 06:18 Abs React Lymphs (Man) 0.0 K/mm3 03/08/21 06:18 Monocytes # (Manual) 0.3 K/mm3 (0.0-0.8) 03/08/21 06:18 Eosinophils # (Manual) 0.0 K/mm3 (0.0-0.4) 03/08/21 06:18 Basophils # (Manual) 0.0 K/mm3 (0.0-0.1) 03/08/21 06:18 Metamyelocytes # 0.0 K/mm3 03/08/21 06:18 Myelocytes # 0.3 K/mm3 03/08/21 06:18 Promyelocytes # 0.0 K/mm3 03/08/21 06:18 Blast Cells # 0.0 K/mm3 03/08/21 06:18 WBC Morphology Not Reportable 03/08/21 06:18 Hypersegmented Neuts Not Reportable 03/08/21 06:18 Hyposegmented Neuts Not Reportable 03/08/21 06:18 Hypogranular Neuts Not Reportable 03/08/21 06:18 Smudge Cells Not Reportable 03/08/21 06:18 Toxic Granulation Not Reportable 03/08/21 06:18 Toxic Vacuolation Not Reportable 03/08/21 06:18 Dohle Bodies Not Reportable 03/08/21 06:18 Pelger-Huet Anomaly Not Reportable 03/08/21 06:18 Jarrett Rods Not Reportable 03/08/21 06:18 Platelet Estimate Consistent w auto 03/08/21 06:18 Clumped Platelets Not Reportable 03/08/21 06:18 Plt Clumps, EDTA Not Reportable 03/08/21 06:18 Large Platelets Not Reportable 03/08/21 06:18 Giant Platelets Not Reportable 03/08/21 06:18 Platelet Satelliting Not Reportable 03/08/21 06:18 Plt Morphology Comment Not Reportable 03/08/21 06:18 RBC Morphology Normal 03/08/21 06:18 Dimorphic RBCs Not Reportable 03/08/21 06:18 Polychromasia Not Reportable 03/08/21 06:18 Hypochromasia Not Reportable 03/08/21 06:18 Poikilocytosis Not Reportable 03/08/21 06:18 Anisocytosis Not Reportable 03/08/21 06:18 Microcytosis Not Reportable 03/08/21 06:18 Macrocytosis Not Reportable 03/08/21 06:18 Spherocytes Not Reportable 03/08/21 06:18 Pappenheimer Bodies Not Reportable 03/08/21 06:18 Sickle Cells Not Reportable 03/08/21 06:18 Target Cells Not Reportable 03/08/21 06:18 Tear Drop Cells Not Reportable 03/08/21 06:18 Ovalocytes Not Reportable 03/08/21 06:18 Helmet Cells Not Reportable 03/08/21 06:18 [place] Bodies Not Reportable 03/08/21 06:18 [place] Rings Not Reportable 03/08/21 06:18 [place] Cells Not Reportable 03/08/21 06:18 Bite Cells Not Reportable 03/08/21 06:18 Crenated Cell Not Reportable 03/08/21 06:18 Elliptocytes Not Reportable 03/08/21 06:18 Acanthocytes (Spur) Not Reportable 03/08/21 06:18 Rouleaux Not Reportable 03/08/21 06:18 Hemoglobin C Crystals Not Reportable 03/08/21 06:18 Schistocytes Not Reportable 03/08/21 06:18 Malaria parasites Not Reportable 03/08/21 06:18 Joss Bodies Not Reportable 03/08/21 06:18 Hem Pathologist Commnt No 03/08/21 06:18 PT 18.5 Sec. (12.2-14.9) H 03/08/21 07:55 INR 1.49 (0.87-1.13) H 03/08/21 07:55 APTT 113.5 Sec. (24.2-36.6) H* 03/08/21 07:55 D-Dimer > 83867 ng/mlDDU (0-234) H 03/07/21 21:28 Heparin Anti-Xa Level 0.33 U.I./ml (0.3-0.7) 03/09/21 06:31 ABG pH 7.370 (7.320-7.450) 03/09/21 03:14 POC ABG pCO2 31.0 mmHg (32.0-48.0) L 03/09/21 03:14 ABG pCO2 39.5 mm Hg 03/07/21 Unknown POC ABG pO2 80.4 mmHg (83-108) L 03/09/21 03:14 ABG pO2 62.6 mm Hg (80.0-90.0) L 03/07/21 Unknown POC ABG HCO3 17.5 03/09/21 03:14 ABG HCO3 20.7 mmol/L (20.0-26.0) 03/07/21 Unknown ABG O2 Saturation 95.2 (0-100) 03/09/21 03:14 ABG O2 Content 15.1 (0.0-44) 03/07/21 Unknown POC ABG Base Excess -6.9 03/09/21 03:14 ABG Base Excess -4.7 mmol/L (-2.0-3.0) L 03/07/21 Unknown ABG Hemoglobin 9.4 (12.0-17.5) L 03/09/21 03:14 ABG Oxyhemoglobin 94.6 (94-98) 03/09/21 03:14 ABG Carboxyhemoglobin 1.4 % (0.0-5.0) 03/07/21 Unknown ABG Methemoglobin 0.3 (0.0-1.5) 03/09/21 03:14 ABG Sodium 138.7 mmol/L (136.0-145.0) 03/09/21 03:14 ABG Potassium 4.3 mmol/L (3.40-4.50) 03/09/21 03:14 ABG Chloride 114.0 mmol/L (98-107) H 03/09/21 03:14 ABG Glucose 249 mg/dL (65-95) H 03/09/21 03:14 Oxyhemoglobin 87.3 % (95.0-99.0) L 03/07/21 Unknown Carboxyhemoglobin 0.3 (0.5-1.5) L 03/09/21 03:14 FiO2 100 % 03/07/21 Unknown FiO2 % 80.0 03/09/21 03:14 Sodium 142 mmol/L (137-145) 03/09/21 06:31 Potassium 4.6 mmol/L (3.6-5.0) 03/09/21 06:31 Chloride 110.6 mmol/L (98-107) H 03/09/21 06:31 Carbon Dioxide 20 mmol/L (22-30) L 03/09/21 06:31 Anion Gap 16 mmol/L 03/09/21 06:31 BUN 22 mg/dL (7-17) H 03/09/21 06:31 Creatinine 0.6 mg/dL (0.6-1.2) 03/09/21 06:31 Estimated GFR > 60 ml/min 03/09/21 06:31 BUN/Creatinine Ratio 37 % 03/09/21 06:31 Glucose 244 mg/dL (65-100) H 03/09/21 06:31 POC Glucose 217 mg/dL (70-105) H 03/09/21 05:26 Lactic Acid 1.70 mmol/L (0.7-2.0) 03/09/21 06:31 Calcium 6.7 mg/dL (8.4-10.2) L 03/09/21 06:31 Ferritin 148.8 ng/mL (10.0-200.0) 03/07/21 20:31 Total Bilirubin 0.30 mg/dL (0.1-1.2) 03/09/21 06:31 AST 21 units/L (5-40) 03/09/21 06:31 ALT 16 units/L (7-56) 03/09/21 06:31 Alkaline Phosphatase 88 units/L (35-129) 03/09/21 06:31 Lactate Dehydrogenase 1259 units/L (91-180) H 03/07/21 20:31 Troponin T 0.085 ng/mL (0.00-0.029) H 03/07/21 20:31 C-Reactive Protein 25.50 mg/dL (0.00-1.30) H 03/07/21 20:31 Total Protein 5.6 g/dL (6.3-8.2) L D 03/09/21 06:31 Albumin 2.5 g/dL (3.9-5) L 03/09/21 06:31 Albumin/Globulin Ratio 0.8 % 03/09/21 06:31 Triglycerides 213 mg/dL (2-149) H 03/07/21 20:31 Cholesterol 141 mg/dL (50-199) 03/07/21 20:31 LDL Cholesterol Direct 72 mg/dL (50-130) 03/07/21 20:31 HDL Cholesterol 34 mg/dL (40-59) L 03/07/21 20:31 Cholesterol/HDL Ratio 4.14 % 03/07/21 20:31 Procalcitonin 0.54 ng/mL (<0.15) 03/07/21 20:31 HCG, Qual Negative (Negative) 03/07/21 22:48 Arterial Blood Glucose 249 mg/dL (65-95) H 03/09/21 03:14 Arterial Blood Ionized Calcium 4.1 mg/dL (4.6-5.3) L 03/09/21 03:14 Urine Color Yellow (Yellow) 03/08/21 05:51 Urine Turbidity Clear (Clear) 03/08/21 05:51 Urine pH 6.0 (5.0-7.0) 03/08/21 05:51 Ur Specific [place] > 1.050 (1.003-1.030) H 03/08/21 05:51 Urine Protein 100 mg/dl mg/dL (Negative) 03/08/21 05:51 Urine Glucose (UA) Neg mg/dL (Negative) 03/08/21 05:51 Urine Ketones Neg mg/dL (Negative) 03/08/21 05:51 Urine Blood Neg (Negative) 03/08/21 05:51 Urine Nitrite Neg (Negative) 03/08/21 05:51 Urine Bilirubin Neg (Negative) 03/08/21 05:51 Urine Urobilinogen 4.0 mg/dL (<2.0) 03/08/21 05:51 Ur Leukocyte Esterase Neg (Negative) 03/08/21 05:51 Urine WBC (Auto) 5.0 /HPF (0.0-6.0) 03/08/21 05:51 Urine RBC (Auto) 5.0 /HPF (0.0-6.0) 03/08/21 05:51 U Epithel Cells (Auto) < 1.0 /HPF (0-13.0) 03/08/21 05:51 Urine Bacteria (Auto) 1+ /HPF (Negative) 03/08/21 05:51 Urine Mucus Few /HPF 03/08/21 05:51 Coronavirus (PCR) Positive (Negative) A 03/07/21 Unknown Microbiology: Microbiology 03/08/21 Unknown Urine,Catheterized - Straight Catheter Urine Culture - Preliminary NO GROWTH AFTER 24 HOURS 03/07/21 20:31 Peripheral/Venous Blood Culture - Preliminary NO GROWTH AFTER 24 HOURS 03/07/21 20:38 Peripheral/Venous Blood Culture - Preliminary NO GROWTH AFTER 24 HOURS Maya/IV: Voiding Method Indwelling Catheter Active Medications - Current Medications Current Medications: Generic Name Dose Route Start Last Admin Trade Name Freq PRN Reason Stop Dose Admin Lipase/Protease/Amylase 1 each 03/08/21 13:40 Lipase 10,500/Protease 25,000/Amylase 43,750 (Units) Dr Cap FEEDTUBE PRN PRN For Clogged Feeding Tube Dexamethasone 8 mg 03/08/21 10:00 03/09/21 10:26 Dexamethasone 4 Mg/Ml Vial IV 03/17/21 10:01 8 mg DAILY MARCO ANTONIO Administration Dextrose 50 ml 03/07/21 22:57 Dextrose 50% In Water (25gm) 50 Ml Syringe IV Q30MIN PRN Hypoglycemia Protocol Famotidine 20 mg 03/08/21 10:00 03/09/21 10:27 Famotidine 20 Mg/2 Ml Inj IV 20 mg BID MARCO ANTONIO Administration Fentanyl 50 mcg 03/07/21 21:20 03/07/21 22:13 Fentanyl 100 Mcg/2 Ml Inj IV 50 mcg Q10MIN PRN Administration ANALGESIA Heparin Sodium (Porcine) 8,000 unit 03/08/21 03:37 Heparin 10,000 Units/10 Ml Vial 40 unit/kg (8000 unit) IV Q6H PRN Anti-Xa Assay < 0.1 units/ml Hydrophilic Ointment 1 applic 03/08/21 12:42 Lip Therapy Vaseline TP Q2HR PRN Dry Lips Propofol 1,000 mg in 100 mls @ 3.084 mls/hr 03/07/21 21:00 03/09/21 08:13 Diprivan 10 Mg/Ml IV 15 mcg/kg/min TITR MARCO ANTONIO 9.252 mls/hr Administration Protocol 5 MCG/KG/MIN Fentanyl Citrate 2,000 mcg in 100 mls @ 5.14 mls/hr 03/07/21 22:00 03/09/21 10:20 Fentanyl Drip Premix IV 4 mcg/kg/hr TITR MARCO ANTONIO 20.56 mls/hr Administration Protocol 1 MCG/KG/HR Norepinephrine 4 mg in 250 mls @ 7.5 mls/hr 03/07/21 23:45 03/08/21 08:15 Levophed Drip 4 Mg/Ns 250 Ml IV 0 mcg/min TITR MARCO ANTONIO 0 mls/hr Titration Protocol 2 MCG/MIN Sodium Chloride 1,000 mls @ 125 mls/hr 03/07/21 23:00 03/09/21 06:10 Nacl 0.9% 1000 Ml IV 125 mls/hr DIRECT MARCO ANTONIO Administration Ceftriaxone Sodium 2 gm in 100 mls @ 200 mls/hr 03/08/21 21:30 03/08/21 21:03 Rocephin/Ns 2 Gm/100 Ml IV 03/12/21 21:59 200 mls/hr Q24H MARCO ANTONIO Administration Protocol Azithromycin 500 mg in 250 mls @ 250 mls/hr 03/08/21 22:00 03/08/21 21:02 Zithromax/Ns IV 03/12/21 22:59 250 mls/hr Q24H MARCO ANTONIO Administration Protocol Heparin Sodium/Sodium Chloride 25,000 unit in 500 mls @ 30 mls/hr 03/08/21 04:00 03/09/21 10:42 Heparin/ 0.45% Nacl-25,000 Unit/500 Ml IV 1,700 units/hr TITR MARCO ANTONIO 34 mls/hr Administration Protocol 1,500 UNITS/HR REMDESIVIR 100 mg/ Sodium 250 mls @ 500 mls/hr 03/09/21 21:00 Chloride IV 03/12/21 21:29 Q24HR@2100 [facility] Insulin Human Lispro 0 unit 03/08/21 12:00 03/09/21 05:38 Insulin Lispro 100 Unit/Ml SUB-Q 2 unit Q6HR [facility] Administration Protocol Magnesium Hydroxide 30 ml 03/07/21 22:57 Magnesium Hydroxide (Mom) Oral Liqd Udc PO Q4H PRN Constipation Morphine Sulfate 2 mg 03/07/21 22:57 03/09/21 00:28 Morphine 2 Mg/1 Ml Inj IV 2 mg Q4H PRN Administration Pain, Moderate (4-6) Multi-Ingred Cream/Lotion/Oil/Oint 1 applic 03/08/21 12:42 Mineral Oil/Petrolatum, White Ophth Oint 3.5 Gm OU Q4HR PRN Dry Eye(s) Ondansetron HCl 4 mg 03/07/21 22:57 Ondansetron 4 Mg/2 Ml Inj IV Q8H PRN Nausea And Vomiting Senna/Docusate Sodium 1 tab 03/08/21 22:00 03/09/21 10:26 Sennosides/Docusate Sodium 8.6/50 Mg Tab FEEDTUBE 1 tab BID MARCO ANTONIO Administration Simple Syrup 15 ml 03/08/21 13:40 Simple Syrup 15 Ml FEEDTUBE PRN PRN Hypoglycemia Simple Syrup 30 ml 03/08/21 13:40 Simple Syrup 15 Ml FEEDTUBE PRN PRN Hypoglycemia Sodium Bicarbonate 325 mg 03/08/21 13:40 Sodium Bicarbonate 325 Mg Tab FEEDTUBE PRN PRN For Clogged Feeding Tube Sodium Chloride 10 ml 03/08/21 10:00 03/09/21 10:27 Sodium Chloride 0.9% 10 Ml Flush Syringe IV 10 ml BID MARCO ANTONIO Administration Sodium Chloride 10 ml 03/07/21 22:57 Sodium Chloride 0.9% 10 Ml Flush Syringe IV PRN PRN LINE FLUSH Sodium Chloride 50 ml 03/09/21 21:00 Sodium Chloride 0.9% 50 Ml Ivpb IV 03/12/21 21:01 Q24HR@2100 [facility] Nutrition/Malnutrition Assess - Dietary Evaluation Nutrition/Malnutrition Findings: Nutrition Notes Start: 03/08/21 12:27 Freq: Status: Active Protocol: Document 03/08/21 12:27 TIFFANY (Rec: 03/08/21 12:36 TIFFANY [id number]) Nutrition Notes Need for Assessment generated from: MD Order,Education Initial or Follow up Assessment Current Diagnosis Sepsis,Respiratory Failure Other Pertinent Diagnosis Pneu, r/o COVID-19, pulmonary embolism Current Diet NPO Labs/Tests BUN 21 BG 188 Ca 6.8 (adjusted Ca 7.2) Pertinent Medications Decadron, Heparin gtt, Levophed gtt, Propofol at 6. 168 ml/hr (provides 163 kcal), NS at 125ml/hr Height 5 ft Weight 102.8 kg [place] Body Weight (kg) 45.45 BMI 44.2 Weight Status Morbidly Obese Subjective/Other Information RD consulted for TF and diet education. Pt not appropriate for diet education at this time. Pt on vent support. Burn Absent Trauma Absent Minimum of two criteria No #1 Nutrition Diagnosis Inadequate oral intake [facility] As Evidenced by Signs and Symptoms pt NPO Is patient on ventilator? Yes Is Patient Ambulatory and/or Out of Bed No REE-([facility]-confined to bed) 1904.676 Kcal/Kg value to use for calculation 14 Approximate Energy Requirements Using 1439 kcal/Kg Calculation Used for Recommendations Kcal/kg Additional Notes Pro needs up to 2.5g/kg IBW: 114g/day Fluid needs 1ml/kcal Nutrition Intervention Nutrition Support: Vital AF 1.2 at 50ml/hr with 80ml water flush q4h. Kcal 1,440 Protein (gm) 90 Carbohydrates (gm) 133 Fat (gm) 65 Fluid (mL) 937 Fiber (gm) 6 Goal #1 TF tolerance Goal #2 TF (at goal rate) to meet at least 75% energy and pro needs Anticipated Discharge Needs: Unable to identify at this time Follow-Up By: 03/10/21 Additional Comments F/U: new TF, vent status
[2021-03-09 12:25] LABS: Hematocrit 28.7 % (30.3-42.9); Hemoglobin 9.3 gm/dl (10.1-14.3); Mean Corpuscular HGB Conc 33 % (30-34); Mean Corpuscular Volume 87 fl (79-97); Platelet Count 165 K/mm3 (140-440); Red Blood Count 3.29 M/mm3 (3.65-5.03); Red Cell Distribution Width 15.5 % (13.2-15.2)
--- NOTE | 2021-03-09 13:11 | Progress Note ---
Assessment and Plan Acute hypoxemic respiratory failure on MVS Severe sepsis with shock Bilateral pneumonia COVID-19 infection Obesity Bilateral pulmonary emboli Leukocytosis Thrombocytopenia Elevated serum inflammatory markers to include D-dimer and LDH Metabolic acidosis Lactic acidosis Non-ST elevation myocardial infarction Oropharyngeal dysphagia - increased peep to 12 cm H2O - discontinue IVF - discontinue calabrese catheter - consider [id number] if decompensates further - continue to wean supplemental oxygen for target O2 sat's > 92% acutely - continue Daily SAT and SBT assessment as tolerated - VAP bundle addressed - continue lung protective strategies - continue bronchodilators with pulmonary hygiene per RT - wean per pulmonary driven protocols otherwise - complete antiinfective's per ID rec's - continue accuchecks with glycemic control per SSI (While critically ill target blood glucose of 140-180 mg/dL; avoid hypoglycemia) - sedation prn for target RASS 0 to -1 - avoid nephrotoxins, renally dose all medications - continue to avoid benzodiazepine's, reduce the possibility of delirium - prn analgesia per CPOT score - Maintenance of sleep-wake cycle, avoid delirium - continue enteral nutritional support at goal rate as tolerated - G.I. & VTE prophylaxis - PT/OT/ROM exercises - continue mobility protocols for pressure ulcer prophylaxis - Monitor hemodynamics closely - continue other care per attending / other consultants - discharge planning ongoing concurrently COVID SPECIFIC INTERVENTIONS - Remdesivir as per ID/Pulmonary developed protocols (ordered) - continue systemic steroids for severe COVID-19 infection empirically 9Decadron 8 mg IV daily) - follow repeat COVID tests results - zinc and vitamin C supplementation - Monitor inflammatory markers per facility protocol - ferritin, Ddimer, CRP - therapeutic anticoagulation per system Protocol based on d-dimer and clinical considerations (full re: DVT / P.E.) - Continue contact and airborne isolation .... Re-evaluate in am & prn CONDITION: CRITICAL PROGNOSIS: GUARDED CODE STATUS: FULL CODE The high probability of a clinically significant, sudden or life-threatening deterioration of the [respiratory, cardiovascular & neurologic] system(s) required my full and direct attention, intervention and personal management. The aggregate critical care time was [36] minutes without overlap. Time includes spent on; [x] Data Review and interpretation [x] Patient assessment and monitoring of vital signs [x] Documentation [x] Medication orders and management Subjective Date of service: 03/09/21 Principal diagnosis: Ac. hypoxemic resp. failure; Septic Shock; COVID-19 Pneumonia; VTE; NSTEMI Interval history: Patient is seen today for: Acute hypoxemic respiratory failure; Severe sepsis with shock; Bilateral pneumonia; COVID-19 infection; Bilateral pulmonary emboli; Thrombocytopenia; NSTEMI Seen and examined at bedside; 24hour events reviewed; nursing and respiratory care staff consulted; no adverse overnight events reported to me; resting in bed; sedated; remains with ARDS; FiO2 increased to 85% after ABG review earlier; no emesis or overt aspiration; no gross bleeding Objective Vital Signs - 12hr 03/09/21 03/09/21 03/09/21 01:15 01:30 01:45 Temperature Pulse Rate 80 82 82 Respiratory 22 21 19 Rate Blood Pressure 102/59 89/59 89/59 O2 Sat by Pulse 94 94 91 Oximetry 03/09/21 03/09/21 03/09/21 02:00 02:15 02:30 Temperature Pulse Rate 81 81 79 Respiratory 21 21 23 Rate Blood Pressure 98/62 98/62 86/53 O2 Sat by Pulse 91 92 92 Oximetry 03/09/21 03/09/21 03/09/21 02:45 03:00 03:15 Temperature Pulse Rate 79 78 81 Respiratory 21 19 19 Rate Blood Pressure 86/53 90/57 90/57 O2 Sat by Pulse 94 94 95 Oximetry 03/09/21 03/09/21 03/09/21 03:30 03:45 04:00 Temperature Pulse Rate 81 79 79 Respiratory 20 20 16 Rate Blood Pressure 105/54 105/54 O2 Sat by Pulse 96 95 94 Oximetry 03/09/21 03/09/21 03/09/21 04:01 04:08 04:15 Temperature Pulse Rate 79 80 80 Respiratory 19 20 Rate Blood Pressure 99/56 99/56 99/56 O2 Sat by Pulse 93 94 93 Oximetry 03/09/21 03/09/21 03/09/21 04:30 04:45 05:00 Temperature Pulse Rate 81 86 81 Respiratory 19 16 19 Rate Blood Pressure 84/57 102/63 101/56 O2 Sat by Pulse 94 93 93 Oximetry 03/09/21 03/09/21 03/09/21 05:15 05:30 05:45 Temperature Pulse Rate 80 82 82 Respiratory 20 20 20 Rate Blood Pressure 101/56 111/54 111/54 O2 Sat by Pulse 91 91 89 Oximetry 03/09/21 03/09/21 03/09/21 06:00 06:15 06:30 Temperature Pulse Rate 83 83 81 Respiratory 20 21 21 Rate Blood Pressure 97/64 97/64 89/62 O2 Sat by Pulse 92 92 92 Oximetry 03/09/21 03/09/21 03/09/21 06:45 07:00 07:15 Temperature 99.1 F Pulse Rate 79 79 81 Respiratory 19 19 20 Rate Blood Pressure 89/62 97/61 97/61 O2 Sat by Pulse 92 92 92 Oximetry 03/09/21 03/09/21 03/09/21 07:30 07:45 08:00 Temperature Pulse Rate 80 81 81 Respiratory 19 19 18 Rate Blood Pressure 93/60 93/60 104/59 O2 Sat by Pulse 91 92 92 Oximetry 03/09/21 03/09/21 03/09/21 08:15 08:20 08:30 Temperature Pulse Rate 80 97 H 81 Respiratory 18 17 Rate Blood Pressure 104/59 92/62 96/60 O2 Sat by Pulse 92 92 91 Oximetry 03/09/21 03/09/21 03/09/21 09:00 09:30 10:00 Temperature Pulse Rate 80 82 83 Respiratory 17 19 21 Rate Blood Pressure 100/61 92/62 97/64 O2 Sat by Pulse 90 92 91 Oximetry 03/09/21 03/09/21 03/09/21 10:30 11:00 11:30 Temperature 99.3 F Pulse Rate 81 80 84 Respiratory 20 19 22 Rate Blood Pressure 111/60 120/60 115/67 O2 Sat by Pulse 90 90 86 Oximetry 03/09/21 03/09/21 12:00 12:10 Temperature Pulse Rate 80 79 Respiratory 20 Rate Blood Pressure 115/67 123/57 O2 Sat by Pulse 89 92 Oximetry Constitutional: no acute distress, other (middle aged obese female with mildly i ncreased respiratory effort at rest) Eyes: non-icteric ENT: oropharynx moist, other (ETT 24 cm ZULEMA) Neck: supple, no lymphadenopathy, other (large circumference) Effort: mildly labored Ascultation: Bilateral: rales Percussion: Bilateral: not dull Cardiovascular: regular rate and rhythm Gastrointestinal: normoactive bowel sounds, soft, non-tender, non-distended (protuberant) Integumentary: normal Extremities: no cyanosis, no edema, pink and warm, pulses normal Neurologic: non-focal exam (grossly), pupils equal and round, CN II-XII normal, motor strength normal and, other (sedated) Psychiatric: other (unable to assess re: sedation) CBC and BMP: 03/09/21 12:10 03/09/21 06:31 ABG, PT/INR, D-dimer: ABG ABG pH 7.370 (7.320-7.450) 03/09/21 03:14 POC ABG pCO2 31.0 mmHg (32.0-48.0) L 03/09/21 03:14 ABG pCO2 39.5 mm Hg 03/07/21 Unknown POC ABG pO2 80.4 mmHg (83-108) L 03/09/21 03:14 ABG pO2 62.6 mm Hg (80.0-90.0) L 03/07/21 Unknown POC ABG HCO3 17.5 03/09/21 03:14 ABG O2 Saturation 95.2 (0-100) 03/09/21 03:14 PT/INR, D-dimer PT 18.5 Sec. (12.2-14.9) H 03/08/21 07:55 INR 1.49 (0.87-1.13) H 03/08/21 07:55 D-Dimer > 59455 ng/mlDDU (0-234) H 03/07/21 21:28 Abnormal lab findings: Abnormal Labs 03/07/21 03/07/21 03/07/21 13:00 20:31 20:31 WBC RBC Hgb Hct RDW Plt Count Seg Neuts % (Manual) Lymphocytes % (Manual) Nucleated RBC % Seg Neutrophils # Man Lymphocytes # (Manual) Monocytes # (Manual) PT INR APTT D-Dimer > 20621 H Heparin Anti-Xa Level ABG pH POC ABG pCO2 POC ABG pO2 ABG pO2 ABG O2 Saturation ABG Base Excess ABG Hemoglobin ABG Oxyhemoglobin ABG Chloride ABG Glucose Oxyhemoglobin Carboxyhemoglobin Sodium 133 L Chloride 94.6 L Carbon Dioxide 17 L BUN 22 H Glucose 309 H POC Glucose Lactic Acid 5.10 H* Calcium Lactate Dehydrogenase Troponin T 0.085 H C-Reactive Protein Total Protein Albumin 3.5 L Triglycerides 213 H HDL Cholesterol 34 L Arterial Blood Glucose Arterial Blood Ionized Calcium Ur Specific [place] Coronavirus (PCR) 0603/07/21 03/07/21 20:31 21:04 21:28 WBC 31.6 H RBC Hgb Hct RDW 15.3 H Plt Count Seg Neuts % (Manual) 73.0 H Lymphocytes % (Manual) 11.5 L Nucleated RBC % 7.0 H Seg Neutrophils # Man 23.1 H Lymphocytes # (Manual) Monocytes # (Manual) 1.7 H PT INR APTT D-Dimer > 58811 H Heparin Anti-Xa Level ABG pH POC ABG pCO2 POC ABG pO2 ABG pO2 ABG O2 Saturation ABG Base Excess ABG Hemoglobin ABG Oxyhemoglobin ABG Chloride ABG Glucose Oxyhemoglobin Carboxyhemoglobin Sodium Chloride Carbon Dioxide BUN Glucose 301 H POC Glucose Lactic Acid Calcium Lactate Dehydrogenase 1259 H Troponin T C-Reactive Protein 25.50 H Total Protein Albumin Triglycerides HDL Cholesterol Arterial Blood Glucose Arterial Blood Ionized Calcium Ur Specific [place] Coronavirus (PCR) 03/07/21 03/07/21 03/07/21 21:28 22:48 Unknown WBC RBC Hgb Hct RDW Plt Count Seg Neuts % (Manual) Lymphocytes % (Manual) Nucleated RBC % Seg Neutrophils # Man Lymphocytes # (Manual) Monocytes # (Manual) PT INR APTT D-Dimer Heparin Anti-Xa Level ABG pH POC ABG pCO2 POC ABG pO2 ABG pO2 ABG O2 Saturation ABG Base Excess ABG Hemoglobin ABG Oxyhemoglobin ABG Chloride ABG Glucose Oxyhemoglobin Carboxyhemoglobin Sodium Chloride Carbon Dioxide BUN Glucose POC Glucose Lactic Acid 6.00 H* 3.40 H* Calcium Lactate Dehydrogenase Troponin T C-Reactive Protein Total Protein Albumin Triglycerides HDL Cholesterol Arterial Blood Glucose Arterial Blood Ionized Calcium Ur Specific [place] Coronavirus (PCR) Positive A 03/07/21 03/08/21 03/08/21 Unknown 05:51 06:18 WBC 27.5 H RBC Hgb Hct RDW Plt Count 108 L Seg Neuts % (Manual) 85.0 H Lymphocytes % (Manual) 1.0 L Nucleated RBC % 7.0 H Seg Neutrophils # Man 23.4 H Lymphocytes # (Manual) 0.3 L Monocytes # (Manual) PT INR APTT D-Dimer Heparin Anti-Xa Level ABG pH 7.338 L POC ABG pCO2 POC ABG pO2 ABG pO2 62.6 L ABG O2 Saturation 89.1 L ABG Base Excess -4.7 L ABG Hemoglobin ABG Oxyhemoglobin ABG Chloride ABG Glucose Oxyhemoglobin 87.3 L Carboxyhemoglobin Sodium Chloride Carbon Dioxide BUN Glucose POC Glucose Lactic Acid Calcium Lactate Dehydrogenase Troponin T C-Reactive Protein Total Protein Albumin Triglycerides HDL Cholesterol Arterial Blood Glucose Arterial Blood Ionized Calcium Ur Specific [place] > 1.050 H Coronavirus (PCR) 03/08/21 03/08/21 03/08/21 06:18 06:18 07:29 WBC RBC Hgb Hct RDW Plt Count Seg Neuts % (Manual) Lymphocytes % (Manual) Nucleated RBC % Seg Neutrophils # Man Lymphocytes # (Manual) Monocytes # (Manual) PT 20.3 H INR 1.69 H APTT D-Dimer Heparin Anti-Xa Level ABG pH POC ABG pCO2 POC ABG pO2 ABG pO2 ABG O2 Saturation ABG Base Excess ABG Hemoglobin ABG Oxyhemoglobin ABG Chloride ABG Glucose Oxyhemoglobin Carboxyhemoglobin Sodium Chloride Carbon Dioxide BUN 21 H Glucose 188 H POC Glucose 192 H Lactic Acid Calcium 6.8 L D Lactate Dehydrogenase Troponin T C-Reactive Protein Total Protein Albumin Triglycerides HDL Cholesterol Arterial Blood Glucose Arterial Blood Ionized Calcium Ur Specific [place] Coronavirus (PCR) 03/08/21 03/08/21 03/08/21 07:55 08:06 11:35 WBC RBC Hgb Hct RDW Plt Count Seg Neuts % (Manual) Lymphocytes % (Manual) Nucleated RBC % Seg Neutrophils # Man Lymphocytes # (Manual) Monocytes # (Manual) PT 18.5 H INR 1.49 H APTT 113.5 H* D-Dimer Heparin Anti-Xa Level ABG pH 7.311 L POC ABG pCO2 POC ABG pO2 ABG pO2 ABG O2 Saturation ABG Base Excess ABG Hemoglobin 11.8 L ABG Oxyhemoglobin ABG Chloride 111.0 H ABG Glucose 176 H Oxyhemoglobin Carboxyhemoglobin 0.4 L Sodium Chloride Carbon Dioxide BUN Glucose POC Glucose 142 H Lactic Acid Calcium Lactate Dehydrogenase Troponin T C-Reactive Protein Total Protein Albumin Triglycerides HDL Cholesterol Arterial Blood Glucose 176 H Arterial Blood Ionized Calcium 4.1 L Ur Specific [place] Coronavirus (PCR) 03/08/21 03/08/21 03/08/21 13:00 16:59 21:00 WBC RBC Hgb Hct RDW Plt Count Seg Neuts % (Manual) Lymphocytes % (Manual) Nucleated RBC % Seg Neutrophils # Man Lymphocytes # (Manual) Monocytes # (Manual) PT INR APTT D-Dimer Heparin Anti-Xa Level 0.22 L ABG pH POC ABG pCO2 30.1 L POC ABG pO2 74.9 L ABG pO2 ABG O2 Saturation ABG Base Excess ABG Hemoglobin 10.0 L ABG Oxyhemoglobin 93.8 L ABG Chloride 113.0 H ABG Glucose 250 H Oxyhemoglobin Carboxyhemoglobin 0.3 L Sodium Chloride Carbon Dioxide BUN Glucose POC Glucose 196 H Lactic Acid Calcium Lactate Dehydrogenase Troponin T C-Reactive Protein Total Protein Albumin Triglycerides HDL Cholesterol Arterial Blood Glucose 250 H Arterial Blood Ionized Calcium 4.0 L Ur Specific [place] Coronavirus (PCR) 03/08/21 03/08/21 03/09/21 21:19 21:30 03:14 WBC RBC Hgb Hct RDW Plt Count Seg Neuts % (Manual) Lymphocytes % (Manual) Nucleated RBC % Seg Neutrophils # Man Lymphocytes # (Manual) Monocytes # (Manual) PT INR APTT D-Dimer Heparin Anti-Xa Level 0.16 L ABG pH POC ABG pCO2 31.0 L POC ABG pO2 80.4 L ABG pO2 ABG O2 Saturation ABG Base Excess ABG Hemoglobin 9.4 L ABG Oxyhemoglobin ABG Chloride 114.0 H ABG Glucose 249 H Oxyhemoglobin Carboxyhemoglobin 0.3 L Sodium Chloride Carbon Dioxide BUN Glucose POC Glucose 250 H Lactic Acid Calcium Lactate Dehydrogenase Troponin T C-Reactive Protein Total Protein Albumin Triglycerides HDL Cholesterol Arterial Blood Glucose 249 H Arterial Blood Ionized Calcium 4.1 L Ur Specific [place] Coronavirus (PCR) 03/09/21 03/09/21 03/09/21 05:26 06:31 11:25 WBC RBC Hgb Hct RDW Plt Count Seg Neuts % (Manual) Lymphocytes % (Manual) Nucleated RBC % Seg Neutrophils # Man Lymphocytes # (Manual) Monocytes # (Manual) PT INR APTT D-Dimer Heparin Anti-Xa Level ABG pH POC ABG pCO2 POC ABG pO2 ABG pO2 ABG O2 Saturation ABG Base Excess ABG Hemoglobin ABG Oxyhemoglobin ABG Chloride ABG Glucose Oxyhemoglobin Carboxyhemoglobin Sodium Chloride 110.6 H Carbon Dioxide 20 L BUN 22 H Glucose 244 H POC Glucose 217 H 235 H Lactic Acid Calcium 6.7 L Lactate Dehydrogenase Troponin T C-Reactive Protein Total Protein 5.6 L D Albumin 2.5 L Triglycerides HDL Cholesterol Arterial Blood Glucose Arterial Blood Ionized Calcium Ur Specific [place] Coronavirus (PCR) 03/09/21 12:10 WBC RBC 3.29 L Hgb 9.3 L Hct 28.7 L RDW 15.5 H Plt Count Seg Neuts % (Manual) Lymphocytes % (Manual) Nucleated RBC % Seg Neutrophils # Man Lymphocytes # (Manual) Monocytes # (Manual) PT INR APTT D-Dimer Heparin Anti-Xa Level ABG pH POC ABG pCO2 POC ABG pO2 ABG pO2 ABG O2 Saturation ABG Base Excess ABG Hemoglobin ABG Oxyhemoglobin ABG Chloride ABG Glucose Oxyhemoglobin Carboxyhemoglobin Sodium Chloride Carbon Dioxide BUN Glucose POC Glucose Lactic Acid Calcium Lactate Dehydrogenase Troponin T C-Reactive Protein Total Protein Albumin Triglycerides HDL Cholesterol Arterial Blood Glucose Arterial Blood Ionized Calcium Ur Specific [place] Coronavirus (PCR) Chest x-ray: image reviewed (stable persistent bilateral infiltrates) Allied health notes reviewed: nursing
[2021-03-09 15:02] LABS: Total Cells Counted 100
[2021-03-09 15:13] LABS: Band Neutrophils # (Manual) 2.7 K/mm3; Myelocytes # (Manual) 0.2 K/mm3
[2021-03-09 15:14] LABS: Platelet Estimate Consistent w Auto; RBC Morphology Normal
[2021-03-09] MEDS: AZITHROMYCIN/NS 500 MG/250 ML 500 MG/250 ML BAG IV SCH (21:49)
[2021-03-09] MEDS: cefTRIAXone/NS 2 GM/100 ML 2 GM/100 ML BAG IV SCH (21:50)
[2021-03-09] MEDS: REMDESIVIR 100 MG in SODIUM CHLORIDE 0.9% 250ML 250 ML IV SCH (21:50)
[2021-03-09] MEDS: SODIUM CHLORIDE 0.9% 50 ML IVPB IV SCH (21:51)
[2021-03-09] MEDS ORDERED: INSULIN GLARGINE 100 UNITS/ML SUB-Q SCH (22:00)
[2021-03-10] MEDS ORDERED: ACETAMINOPHEN 650 MG RECT SUPP PR PRN (00:30)
[2021-03-10] MEDS: INSULIN LISPRO 100 UNIT/ML SUB-Q SCH ×4 (00:30→17:20)
--- NOTE | 2021-03-10 00:31 | Event Note ---
Date: 03/10/21 Nurse reports patient had an episode of large emesis, tube feeds stopped approximately 2 hours ago, patient now febrile with temperature of 101.5. Ordered CBC, lactic acid, stat CXR, started on empiric Zosyn for suspicion of aspiration pneumonia, acetaminophen as needed for fever 100.5 or greater
[2021-03-10] MEDS: fentaNYL DRIP Premix 2,000 MCG/100 ML BAG IV SCH ×5 (00:48→21:46)
[2021-03-10] MEDS: ACETAMINOPHEN 325 MG TAB ONE ×2 (01:00→04:00)
[2021-03-10] MEDS ORDERED: PIPERACIL/TAZOBACTA 4.5/NS 100 4.5 GM/100 ML VIAL IV SCH (01:00)
[2021-03-10] MEDS: HEPARIN/ 0.45% NACL DRIP 25,000 UNIT/500 ML BAG IV SCH ×2 (01:26→14:41)
[2021-03-10 01:57] LABS: Hematocrit 28.9 % (30.3-42.9); Hemoglobin 9.3 gm/dl (10.1-14.3); Mean Corpuscular HGB Conc 32 % (30-34); Mean Corpuscular Volume 87 fl (79-97); Platelet Count 214 K/mm3 (140-440); Red Blood Count 3.31 M/mm3 (3.65-5.03); Red Cell Distribution Width 15.1 % (13.2-15.2)
[2021-03-10 02:59] LABS: RBC Morphology Normal; Total Cells Counted 100
[2021-03-10] MEDS ORDERED: ACETAMINOPHEN 325 MG TAB PO ONE (03:27)
[2021-03-10 05:00] LABS: Hematocrit 28.9 % (30.3-42.9); Hemoglobin 9.4 gm/dl (10.1-14.3); Mean Corpuscular HGB Conc 32 % (30-34); Mean Corpuscular Volume 87 fl (79-97); Platelet Count 218 K/mm3 (140-440); Red Blood Count 3.33 M/mm3 (3.65-5.03); Red Cell Distribution Width 15.3 % (13.2-15.2)
[2021-03-10 05:11] LABS: Blood Urea Nitrogen 25 mg/dL (7-17); Calcium 7.3 mg/dL (8.4-10.2); Hemolysis Index 1
[2021-03-10 05:12] LABS: BUN/Creatinine Ratio 42
[2021-03-10 05:15] LABS: Alanine Aminotransferase 14 units/L (7-56); Albumin 2.8 g/dL (3.9-5); Blood Urea Nitrogen 24 mg/dL (7-17); Calcium 7.5 mg/dL (8.4-10.2); Hemolysis Index 2
[2021-03-10 05:18] LABS: BUN/Creatinine Ratio 40
--- NOTE | 2021-03-10 06:07 | XRay Report ---
CHEST 1 VIEW INDICATION / CLINICAL INFORMATION: follow up respiratory failure. COMPARISON: 03/09/2021 FINDINGS: SUPPORT DEVICES: Stable, satisfactory device positioning. Please that the endotracheal tube is not cl early identified.. HEART / MEDIASTINUM: No significant abnormality. LUNGS / PLEURA: Bilateral pulmonary opacities persist and appear to be slightly improved. No pleural effusion. No pneumothorax. ADDITIONAL FINDINGS: No significant additional findings. IMPRESSION: 1. Improving bilateral pulmonary opacities. Signer Name: Meryl Aguila MD Signed: 03/10/2021 6:02 AM Workstation Name: [id number]
[2021-03-10] MEDS: SENNOSIDES/DOCUSATE SODIUM 8.6/50 MG TAB FEEDTUBE SCH (09:36)
[2021-03-10] MEDS: dexAMETHasone 4 MG/ML VIAL IV SCH (09:36)
[2021-03-10] MEDS: FAMOTIDINE 20 MG/2 ML INJ IV SCH ×2 (09:36→21:44)
--- NOTE | 2021-03-10 11:49 | Progress Note ---
Assessment and Plan Cultures: Blood culture no growth so far Covid PCR: Positive A/P: 45-year-old female no past medical history admitted with COVID-19 pneumonia and bilateral pulmonary emboli. #Severe COVID-19 pneumonia: Patient presented with 3 days of symptoms, chest x- ray with diffuse bilateral infiltrates, admission O2 sats 50% on room air. Inflammatory markers elevated #Acute hypoxemic respiratory failure: Likely secondary to COVID-19 infection. Currently on the vent #Bilateral pulmonary emboli: Anticoagulation per primary #Obesity: Associated with worse COVID-19 outcomes. Recs: -Dexamethasone 6 mg IV/PO daily for 10 days -Remdesivir 200 mg IV q day x 1 followed by 100 mg IV q day x 4 days -Actemra 03/09/2021 -Obtain q48-72h inflammatory markers - ferritin, Ddimer, CRP, LDH -Continue ceftriaxone 2 gm IV qday and azithromycin 500 mg PO qday for 5 days given elevated procal -Anticoagulation per hospital protocol -Proning as able Thank you for the consult, we will continue to follow. Lay Finch MD [facility] ([facility] O: [phone] F: [phone] Subjective Date of service: 03/10/21 Principal diagnosis: Ac. hypoxemic resp. failure; Septic Shock; COVID-19 Pneumonia; VTE; NSTEMI Interval history: Febrile overnight, white count mostly stable. Had vomiting episode yesterday, concern for aspiration. Imaging personally reviewed: CXR: Improving opacities Objective - Exam Narrative Exam: Physical exam deferred to reduce risk of transmission of COVID-19. Please refer to primary team's note. - Constitutional Vitals: Vital Signs Temp Pulse Resp BP Pulse Ox 99.1 F 58 L 30 H 110/56 100 03/10/21 08:00 03/10/21 11:30 03/10/21 11:30 03/10/21 11:30 03/10/21 11:30 Temperature -Last 24 Hours Temperature 99.1 F Temperature 99.1 F Temperature 100.3 F Temperature 101.5 F Temperature 99.2 F Temperature 100.6 F - Labs CBC & Chem 7: 03/10/21 04:32 03/10/21 04:32 Labs: Abnormal lab results 03/09/21 03/09/21 03/09/21 Range/Units 12:10 17:29 23:13 WBC 24.1 H (4.5-11.0) K/mm3 RBC 3.29 L (3.65-5.03) M/mm3 Hgb 9.3 L (10.1-14.3) gm/dl Hct 28.7 L (30.3-42.9) % RDW 15.5 H (13.2-15.2) % Seg Neuts % (Manual) 84.0 H (40.0-70.0) % Lymphocytes % (Manual) 1.0 L (13.4-35.0) % Nucleated RBC % 3.0 H (0.0-0.9) % Seg Neutrophils # Man 20.2 H (1.8-7.7) K/mm3 Lymphocytes # (Manual) 0.2 L (1.2-5.4) K/mm3 Monocytes # (Manual) (0.0-0.8) K/mm3 POC ABG pCO2 (32.0-48.0) mmHg POC ABG pO2 (83-108) mmHg ABG Hemoglobin (12.0-17.5) ABG Oxyhemoglobin (94-98) ABG Potassium (3.40-4.50) mmol/L ABG Chloride (98-107) mmol/L ABG Glucose (65-95) mg/dL Carboxyhemoglobin (0.5-1.5) Chloride (98-107) mmol/L Carbon Dioxide (22-30) mmol/L BUN (7-17) mg/dL Glucose (65-100) mg/dL POC Glucose 279 H 284 H (70-105) mg/dL Calcium (8.4-10.2) mg/dL Total Protein (6.3-8.2) g/dL Albumin (3.9-5) g/dL Arterial Blood Glucose (65-95) mg/dL Arterial Blood Ionized Calcium (4.6-5.3) mg/dL 03/10/21 03/10/21 03/10/21 Range/Units 01:12 03:29 04:32 WBC 22.6 H 21.5 H (4.5-11.0) K/mm3 RBC 3.31 L 3.33 L (3.65-5.03) M/mm3 Hgb 9.3 L 9.4 L (10.1-14.3) gm/dl Hct 28.9 L 28.9 L (30.3-42.9) % RDW 15.3 H (13.2-15.2) % Seg Neuts % (Manual) 89.0 H (40.0-70.0) % Lymphocytes % (Manual) 6.0 L (13.4-35.0) % Nucleated RBC % (0.0-0.9) % Seg Neutrophils # Man 20.1 H (1.8-7.7) K/mm3 Lymphocytes # (Manual) (1.2-5.4) K/mm3 Monocytes # (Manual) 1.1 H (0.0-0.8) K/mm3 POC ABG pCO2 26.7 L (32.0-48.0) mmHg POC ABG pO2 148.7 H (83-108) mmHg ABG Hemoglobin 9.5 L (12.0-17.5) ABG Oxyhemoglobin 98.3 H (94-98) ABG Potassium 4.7 H (3.40-4.50) mmol/L ABG Chloride 114.0 H (98-107) mmol/L ABG Glucose 263 H (65-95) mg/dL Carboxyhemoglobin 0.3 L (0.5-1.5) Chloride (98-107) mmol/L Carbon Dioxide (22-30) mmol/L BUN (7-17) mg/dL Glucose (65-100) mg/dL POC Glucose (70-105) mg/dL Calcium (8.4-10.2) mg/dL Total Protein (6.3-8.2) g/dL Albumin (3.9-5) g/dL Arterial Blood Glucose 263 H (65-95) mg/dL Arterial Blood Ionized Calcium 4.4 L (4.6-5.3) mg/dL 03/10/21 03/10/21 03/10/21 Range/Units 04:32 04:32 05:26 WBC (4.5-11.0) K/mm3 RBC (3.65-5.03) M/mm3 Hgb (10.1-14.3) gm/dl Hct (30.3-42.9) % RDW (13.2-15.2) % Seg Neuts % (Manual) (40.0-70.0) % Lymphocytes % (Manual) (13.4-35.0) % Nucleated RBC % (0.0-0.9) % Seg Neutrophils # Man (1.8-7.7) K/mm3 Lymphocytes # (Manual) (1.2-5.4) K/mm3 Monocytes # (Manual) (0.0-0.8) K/mm3 POC ABG pCO2 (32.0-48.0) mmHg POC ABG pO2 (83-108) mmHg ABG Hemoglobin (12.0-17.5) ABG Oxyhemoglobin (94-98) ABG Potassium (3.40-4.50) mmol/L ABG Chloride (98-107) mmol/L ABG Glucose (65-95) mg/dL Carboxyhemoglobin (0.5-1.5) Chloride 112.2 H 111.0 H (98-107) mmol/L Carbon Dioxide 21 L 21 L (22-30) mmol/L BUN 24 H 25 H (7-17) mg/dL Glucose 262 H 258 H (65-100) mg/dL POC Glucose 246 H (70-105) mg/dL Calcium 7.5 L 7.3 L (8.4-10.2) mg/dL Total Protein 5.8 L (6.3-8.2) g/dL Albumin 2.8 L (3.9-5) g/dL Arterial Blood Glucose (65-95) mg/dL Arterial Blood Ionized Calcium (4.6-5.3) mg/dL
--- NOTE | 2021-03-10 13:05 | Progress Note ---
Assessment and Plan Acute hypoxemic respiratory failure on MVS Severe sepsis with shock Bilateral pneumonia COVID-19 infection Obesity Bilateral pulmonary emboli Leukocytosis Thrombocytopenia Elevated serum inflammatory markers to include D-dimer and LDH Metabolic acidosis Lactic acidosis Non-ST elevation myocardial infarction Oropharyngeal dysphagia - begin Reglan for high residuals - begin Flomax for urinary retention - reduce set rate to 25/min - repeat ABG at 9pm tonight - keep peep at 12 cm H2O - continue care as below otherwise; - continue to wean supplemental oxygen for target O2 sat's > 92% acutely - continue Daily SAT and SBT assessment as tolerated - VAP bundle addressed - continue lung protective strategies - continue bronchodilators with pulmonary hygiene per RT - wean per pulmonary driven protocols otherwise - complete antiinfective's per ID rec's - continue accuchecks with glycemic control per SSI (While critically ill target blood glucose of 140-180 mg/dL; avoid hypoglycemia) - sedation prn for target RASS 0 to -1 - avoid nephrotoxins, renally dose all medications - continue to avoid benzodiazepine's, reduce the possibility of delirium - prn analgesia per CPOT score - Maintenance of sleep-wake cycle, avoid delirium - continue enteral nutritional support at goal rate as tolerated - G.I. & VTE prophylaxis - PT/OT/ROM exercises - continue mobility protocols for pressure ulcer prophylaxis - Monitor hemodynamics closely - continue other care per attending / other consultants - discharge planning ongoing concurrently COVID SPECIFIC INTERVENTIONS - Remdesivir as per ID/Pulmonary developed protocols (ordered) - continue systemic steroids for severe COVID-19 infection empirically 9Decadron 8 mg IV daily) - follow repeat COVID tests results - zinc and vitamin C supplementation - Monitor inflammatory markers per facility protocol - ferritin, Ddimer, CRP - therapeutic anticoagulation per system Protocol based on d-dimer and clinical considerations (full re: DVT / P.E.) - Continue contact and airborne isolation .... Re-evaluate in am & prn CONDITION: CRITICAL PROGNOSIS: GUARDED CODE STATUS: FULL CODE The high probability of a clinically significant, sudden or life-threatening deterioration of the [respiratory, cardiovascular & neurologic] system(s) required my full and direct attention, intervention and personal management. The aggregate critical care time was [33] minutes without overlap. Time includes spent on; [x] Data Review and interpretation [x] Patient assessment and monitoring of vital signs [x] Documentation [x] Medication orders and management Subjective Date of service: 03/10/21 Principal diagnosis: Ac. hypoxemic resp. failure; Septic Shock; COVID-19 Pneumonia; VTE; NSTEMI Interval history: Patient is seen today for: Acute hypoxemic respiratory failure; Severe sepsis with shock; Bilateral pneumonia; COVID-19 infection; Bilateral pulmonary emboli; Thrombocytopenia; NSTEMI Seen and examined at bedside; 24hour events reviewed; nursing and respiratory care staff consulted; no adverse overnight events reported to me; resting in bed; sedated; oxygenation with mild improvement; ventilation adequate; agitated during SAT's but exam non-focal; no emesis or overt aspiration Objective Vital Signs - 12hr 03/10/21 03/10/21 03/10/21 01:30 02:00 02:30 Temperature Pulse Rate 68 70 67 Respiratory 21 30 H 30 H Rate Blood Pressure 94/55 96/52 101/54 O2 Sat by Pulse 100 100 100 Oximetry 03/10/21 03/10/21 03/10/21 03:00 03:11 03:30 Temperature 100.3 F H Pulse Rate 67 67 Respiratory 30 H 30 H Rate Blood Pressure 89/53 92/56 O2 Sat by Pulse 100 100 Oximetry 03/10/21 03/10/21 03/10/21 03:50 04:00 04:30 Temperature Pulse Rate 65 66 65 Respiratory 30 H 30 H Rate Blood Pressure 105/60 105/57 106/59 O2 Sat by Pulse 100 100 100 Oximetry 03/10/21 03/10/21 03/10/21 05:00 05:30 06:00 Temperature Pulse Rate 65 65 65 Respiratory 30 H 30 H 30 H Rate Blood Pressure 105/60 104/54 100/54 O2 Sat by Pulse 100 100 100 Oximetry 03/10/21 03/10/21 03/10/21 06:30 07:00 07:30 Temperature 99.1 F Pulse Rate 63 62 60 Respiratory 30 H 30 H 30 H Rate Blood Pressure 98/54 102/55 109/57 O2 Sat by Pulse 100 100 100 Oximetry 03/10/21 03/10/21 03/10/21 07:54 08:00 08:30 Temperature 99.1 F Pulse Rate 60 60 59 L Respiratory 30 H 30 H Rate Blood Pressure 109/57 101/55 108/57 O2 Sat by Pulse 100 100 100 Oximetry 03/10/21 03/10/21 03/10/21 09:00 09:30 10:00 Temperature Pulse Rate 62 63 61 Respiratory 30 H 30 H 30 H Rate Blood Pressure 98/52 96/52 101/56 O2 Sat by Pulse 100 100 100 Oximetry 03/10/21 03/10/21 03/10/21 10:30 11:00 11:10 Temperature Pulse Rate 60 60 59 L Respiratory 30 H 24 Rate Blood Pressure 103/58 112/65 112/65 O2 Sat by Pulse 100 100 100 Oximetry 03/10/21 03/10/21 03/10/21 11:30 12:00 12:03 Temperature 98.0 F Pulse Rate 58 L 58 L Respiratory 30 H 30 H Rate Blood Pressure 110/56 113/62 O2 Sat by Pulse 100 100 Oximetry Constitutional: no acute distress, other (middle aged obese female with mildly increased respiratory effort at rest) Eyes: non-icteric ENT: oropharynx moist, other (ETT 24 cm ZULEMA) Neck: supple, no lymphadenopathy, other (large circumference) Effort: mildly labored Ascultation: Bilateral: rales (improving) Percussion: Bilateral: not dull Cardiovascular: regular rate and rhythm Gastrointestinal: normoactive bowel sounds, soft, non-tender, non-distended (protuberant) Integumentary: normal Extremities: no cyanosis, no edema, pink and warm, pulses normal Neurologic: non-focal exam (grossly), pupils equal and round, CN II-XII normal, motor strength normal and, other (sedated) Psychiatric: other (unable to assess re: sedation) CBC and BMP: 03/10/21 04:32 03/11/21 04:40 ABG, PT/INR, D-dimer: ABG ABG pH 7.440 (7.320-7.450) 03/10/21 03:29 POC ABG pCO2 26.7 mmHg (32.0-48.0) L 03/10/21 03:29 ABG pCO2 39.5 mm Hg 03/07/21 Unknown POC ABG pO2 148.7 mmHg (83-108) H 03/10/21 03:29 ABG pO2 62.6 mm Hg (80.0-90.0) L 03/07/21 Unknown POC ABG HCO3 17.7 03/10/21 03:29 ABG O2 Saturation 98.9 (0-100) 03/10/21 03:29 PT/INR, D-dimer PT 18.5 Sec. (12.2-14.9) H 03/08/21 07:55 INR 1.49 (0.87-1.13) H 03/08/21 07:55 D-Dimer > 84126 ng/mlDDU (0-234) H 03/07/21 21:28 Abnormal lab findings: Abnormal Labs 03/07/21 03/07/21 03/07/21 13:00 20:31 20:31 WBC RBC Hgb Hct RDW Plt Count Seg Neuts % (Manual) Lymphocytes % (Manual) Nucleated RBC % Seg Neutrophils # Man Lymphocytes # (Manual) Monocytes # (Manual) PT INR APTT D-Dimer > 12294 H Heparin Anti-Xa Level ABG pH POC ABG pCO2 POC ABG pO2 ABG pO2 ABG O2 Saturation ABG Base Excess ABG Hemoglobin ABG Oxyhemoglobin ABG Potassium ABG Chloride ABG Glucose Oxyhemoglobin Carboxyhemoglobin Sodium 133 L Chloride 94.6 L Carbon Dioxide 17 L BUN 22 H Glucose 309 H POC Glucose Lactic Acid 5.10 H* Calcium Lactate Dehydrogenase Troponin T 0.085 H C-Reactive Protein Total Protein Albumin 3.5 L Triglycerides 213 H HDL Cholesterol 34 L Arterial Blood Glucose Arterial Blood Ionized Calcium Ur Specific [place] Coronavirus (PCR) 03/07/21 03/07/21 03/07/21 20:31 21:04 21:28 WBC 31.6 H RBC Hgb Hct RDW 15.3 H Plt Count Seg Neuts % (Manual) 73.0 H Lymphocytes % (Manual) 11.5 L Nucleated RBC % 7.0 H Seg Neutrophils # Man 23.1 H Lymphocytes # (Manual) Monocytes # (Manual) 1.7 H PT INR APTT D-Dimer > 70006 H Heparin Anti-Xa Level ABG pH POC ABG pCO2 POC ABG pO2 ABG pO2 ABG O2 Saturation ABG Base Excess ABG Hemoglobin ABG Oxyhemoglobin ABG Potassium ABG Chloride ABG Glucose Oxyhemoglobin Carboxyhemoglobin Sodium Chloride Carbon Dioxide BUN Glucose 301 H POC Glucose Lactic Acid Calcium Lactate Dehydrogenase 1259 H Troponin T C-Reactive Protein 25.50 H Total Protein Albumin Triglycerides HDL Cholesterol Arterial Blood Glucose Arterial Blood Ionized Calcium Ur Specific [place] Coronavirus (PCR) 03/07/21 03/07/21 03/07/21 21:28 22:48 Unknown WBC RBC Hgb Hct RDW Plt Count Seg Neuts % (Manual) Lymphocytes % (Manual) Nucleated RBC % Seg Neutrophils # Man Lymphocytes # (Manual) Monocytes # (Manual) PT INR APTT D-Dimer Heparin Anti-Xa Level ABG pH POC ABG pCO2 POC ABG pO2 ABG pO2 ABG O2 Saturation ABG Base Excess ABG Hemoglobin ABG Oxyhemoglobin ABG Potassium ABG Chloride ABG Glucose Oxyhemoglobin Carboxyhemoglobin Sodium Chloride Carbon Dioxide BUN Glucose POC Glucose Lactic Acid 6.00 H* 3.40 H* Calcium Lactate Dehydrogenase Troponin T C-Reactive Protein Total Protein Albumin Triglycerides HDL Cholesterol Arterial Blood Glucose Arterial Blood Ionized Calcium Ur Specific [place] Coronavirus (PCR) Positive A 03/07/21 03/08/21 03/08/21 Unknown 05:51 06:18 WBC 27.5 H RBC Hgb Hct RDW Plt Count 108 L Seg Neuts % (Manual) 85.0 H Lymphocytes % (Manual) 1.0 L Nucleated RBC % 7.0 H Seg Neutrophils # Man 23.4 H Lymphocytes # (Manual) 0.3 L Monocytes # (Manual) PT INR APTT D-Dimer Heparin Anti-Xa Level ABG pH 7.338 L POC ABG pCO2 POC ABG pO2 ABG pO2 62.6 L ABG O2 Saturation 89.1 L ABG Base Excess -4.7 L ABG Hemoglobin ABG Oxyhemoglobin ABG Potassium ABG Chloride ABG Glucose Oxyhemoglobin 87.3 L Carboxyhemoglobin Sodium Chloride Carbon Dioxide BUN Glucose POC Glucose Lactic Acid Calcium Lactate Dehydrogenase Troponin T C-Reactive Protein Total Protein Albumin Triglycerides HDL Cholesterol Arterial Blood Glucose Arterial Blood Ionized Calcium Ur Specific [place] > 1.050 H Coronavirus (PCR) 03/08/21 03/08/21 03/08/21 06:18 06:18 07:29 WBC RBC Hgb Hct RDW Plt Count Seg Neuts % (Manual) Lymphocytes % (Manual) Nucleated RBC % Seg Neutrophils # Man Lymphocytes # (Manual) Monocytes # (Manual) PT 20.3 H INR 1.69 H APTT D-Dimer Heparin Anti-Xa Level ABG pH POC ABG pCO2 POC ABG pO2 ABG pO2 ABG O2 Saturation ABG Base Excess ABG Hemoglobin ABG Oxyhemoglobin ABG Potassium ABG Chloride ABG Glucose Oxyhemoglobin Carboxyhemoglobin Sodium Chloride Carbon Dioxide BUN 21 H Glucose 188 H POC Glucose 192 H Lactic Acid Calcium 6.8 L D Lactate Dehydrogenase Troponin T C-Reactive Protein Total Protein Albumin Triglycerides HDL Cholesterol Arterial Blood Glucose Arterial Blood Ionized Calcium Ur Specific [place] Coronavirus (PCR) 03/08/21 03/08/21 03/08/21 07:55 08:06 11:35 WBC RBC Hgb Hct RDW Plt Count Seg Neuts % (Manual) Lymphocytes % (Manual) Nucleated RBC % Seg Neutrophils # Man Lymphocytes # (Manual) Monocytes # (Manual) PT 18.5 H INR 1.49 H APTT 113.5 H* D-Dimer Heparin Anti-Xa Level ABG pH 7.311 L POC ABG pCO2 POC ABG pO2 ABG pO2 ABG O2 Saturation ABG Base Excess ABG Hemoglobin 11.8 L ABG Oxyhemoglobin ABG Potassium ABG Chloride 111.0 H ABG Glucose 176 H Oxyhemoglobin Carboxyhemoglobin 0.4 L Sodium Chloride Carbon Dioxide BUN Glucose POC Glucose 142 H Lactic Acid Calcium Lactate Dehydrogenase Troponin T C-Reactive Protein Total Protein Albumin Triglycerides HDL Cholesterol Arterial Blood Glucose 176 H Arterial Blood Ionized Calcium 4.1 L Ur Specific [place] Coronavirus (PCR) 03/08/21 03/08/21 03/08/21 13:00 16:59 21:00 WBC RBC Hgb Hct RDW Plt Count Seg Neuts % (Manual) Lymphocytes % (Manual) Nucleated RBC % Seg Neutrophils # Man Lymphocytes # (Manual) Monocytes # (Manual) PT INR APTT D-Dimer Heparin Anti-Xa Level 0.22 L ABG pH POC ABG pCO2 30.1 L POC ABG pO2 74.9 L ABG pO2 ABG O2 Saturation ABG Base Excess ABG Hemoglobin 10.0 L ABG Oxyhemoglobin 93.8 L ABG Potassium ABG Chloride 113.0 H ABG Glucose 250 H Oxyhemoglobin Carboxyhemoglobin 0.3 L Sodium Chloride Carbon Dioxide BUN Glucose POC Glucose 196 H Lactic Acid Calcium Lactate Dehydrogenase Troponin T C-Reactive Protein Total Protein Albumin Triglycerides HDL Cholesterol Arterial Blood Glucose 250 H Arterial Blood Ionized Calcium 4.0 L Ur Specific [place] Coronavirus (PCR) 03/08/21 03/08/21 03/09/21 21:19 21:30 03:14 WBC RBC Hgb Hct RDW Plt Count Seg Neuts % (Manual) Lymphocytes % (Manual) Nucleated RBC % Seg Neutrophils # Man Lymphocytes # (Manual) Monocytes # (Manual) PT INR APTT D-Dimer Heparin Anti-Xa Level 0.16 L ABG pH POC ABG pCO2 31.0 L POC ABG pO2 80.4 L ABG pO2 ABG O2 Saturation ABG Base Excess ABG Hemoglobin 9.4 L ABG Oxyhemoglobin ABG Potassium ABG Chloride 114.0 H ABG Glucose 249 H Oxyhemoglobin Carboxyhemoglobin 0.3 L Sodium Chloride Carbon Dioxide BUN Glucose POC Glucose 250 H Lactic Acid Calcium Lactate Dehydrogenase Troponin T C-Reactive Protein Total Protein Albumin Triglycerides HDL Cholesterol Arterial Blood Glucose 249 H Arterial Blood Ionized Calcium 4.1 L Ur Specific [place] Coronavirus (PCR) 03/09/21 03/09/21 03/09/21 05:26 06:31 11:25 WBC RBC Hgb Hct RDW Plt Count Seg Neuts % (Manual) Lymphocytes % (Manual) Nucleated RBC % Seg Neutrophils # Man Lymphocytes # (Manual) Monocytes # (Manual) PT INR APTT D-Dimer Heparin Anti-Xa Level ABG pH POC ABG pCO2 POC ABG pO2 ABG pO2 ABG O2 Saturation ABG Base Excess ABG Hemoglobin ABG Oxyhemoglobin ABG Potassium ABG Chloride ABG Glucose Oxyhemoglobin Carboxyhemoglobin Sodium Chloride 110.6 H Carbon Dioxide 20 L BUN 22 H Glucose 244 H POC Glucose 217 H 235 H Lactic Acid Calcium 6.7 L Lactate Dehydrogenase Troponin T C-Reactive Protein Total Protein 5.6 L D Albumin 2.5 L Triglycerides HDL Cholesterol Arterial Blood Glucose Arterial Blood Ionized Calcium Ur Specific [place] Coronavirus (PCR) 03/09/21 03/09/21 03/09/21 12:10 17:29 23:13 WBC 24.1 H RBC 3.29 L Hgb 9.3 L Hct 28.7 L RDW 15.5 H Plt Count Seg Neuts % (Manual) 84.0 H Lymphocytes % (Manual) 1.0 L Nucleated RBC % 3.0 H Seg Neutrophils # Man 20.2 H Lymphocytes # (Manual) 0.2 L Monocytes # (Manual) PT INR APTT D-Dimer Heparin Anti-Xa Level ABG pH POC ABG pCO2 POC ABG pO2 ABG pO2 ABG O2 Saturation ABG Base Excess ABG Hemoglobin ABG Oxyhemoglobin ABG Potassium ABG Chloride ABG Glucose Oxyhemoglobin Carboxyhemoglobin Sodium Chloride Carbon Dioxide BUN Glucose POC Glucose 279 H 284 H Lactic Acid Calcium Lactate Dehydrogenase Troponin T C-Reactive Protein Total Protein Albumin Triglycerides HDL Cholesterol Arterial Blood Glucose Arterial Blood Ionized Calcium Ur Specific [place] Coronavirus (PCR) 03/10/21 03/10/21 03/10/21 01:12 03:29 04:32 WBC 22.6 H 21.5 H RBC 3.31 L 3.33 L Hgb 9.3 L 9.4 L Hct 28.9 L 28.9 L RDW 15.3 H Plt Count Seg Neuts % (Manual) 89.0 H Lymphocytes % (Manual) 6.0 L Nucleated RBC % Seg Neutrophils # Man 20.1 H Lymphocytes # (Manual) Monocytes # (Manual) 1.1 H PT INR APTT D-Dimer Heparin Anti-Xa Level ABG pH POC ABG pCO2 26.7 L POC ABG pO2 148.7 H ABG pO2 ABG O2 Saturation ABG Base Excess ABG Hemoglobin 9.5 L ABG Oxyhemoglobin 98.3 H ABG Potassium 4.7 H ABG Chloride 114.0 H ABG Glucose 263 H Oxyhemoglobin Carboxyhemoglobin 0.3 L Sodium Chloride Carbon Dioxide BUN Glucose POC Glucose Lactic Acid Calcium Lactate Dehydrogenase Troponin T C-Reactive Protein Total Protein Albumin Triglycerides HDL Cholesterol Arterial Blood Glucose 263 H Arterial Blood Ionized Calcium 4.4 L Ur Specific [place] Coronavirus (PCR) 03/10/21 03/10/21 03/10/21 04:32 04:32 05:26 WBC RBC Hgb Hct RDW Plt Count Seg Neuts % (Manual) Lymphocytes % (Manual) Nucleated RBC % Seg Neutrophils # Man Lymphocytes # (Manual) Monocytes # (Manual) PT INR APTT D-Dimer Heparin Anti-Xa Level ABG pH POC ABG pCO2 POC ABG pO2 ABG pO2 ABG O2 Saturation ABG Base Excess ABG Hemoglobin ABG Oxyhemoglobin ABG Potassium ABG Chloride ABG Glucose Oxyhemoglobin Carboxyhemoglobin Sodium Chloride 112.2 H 111.0 H Carbon Dioxide 21 L 21 L BUN 24 H 25 H Glucose 262 H 258 H POC Glucose 246 H Lactic Acid Calcium 7.5 L 7.3 L Lactate Dehydrogenase Troponin T C-Reactive Protein Total Protein 5.8 L Albumin 2.8 L Triglycerides HDL Cholesterol Arterial Blood Glucose Arterial Blood Ionized Calcium Ur Specific [place] Coronavirus (PCR) 03/10/21 11:50 WBC RBC Hgb Hct RDW Plt Count Seg Neuts % (Manual) Lymphocytes % (Manual) Nucleated RBC % Seg Neutrophils # Man Lymphocytes # (Manual) Monocytes # (Manual) PT INR APTT D-Dimer Heparin Anti-Xa Level ABG pH POC ABG pCO2 POC ABG pO2 ABG pO2 ABG O2 Saturation ABG Base Excess ABG Hemoglobin ABG Oxyhemoglobin ABG Potassium ABG Chloride ABG Glucose Oxyhemoglobin Carboxyhemoglobin Sodium Chloride Carbon Dioxide BUN Glucose POC Glucose 234 H Lactic Acid Calcium Lactate Dehydrogenase Troponin T C-Reactive Protein Total Protein Albumin Triglycerides HDL Cholesterol Arterial Blood Glucose Arterial Blood Ionized Calcium Ur Specific [place] Coronavirus (PCR) Chest x-ray: image reviewed (improved infiltrates) Allied health notes reviewed: nursing
[2021-03-10] MEDS: TAMSULOSIN 0.4 MG CAP PO SCH (14:46)
[2021-03-10] MEDS: METOCLOPRAMIDE 10 MG/2 ML INJ IV SCH ×2 (14:46→21:44)
--- NOTE | 2021-03-10 15:49 | Progress Note ---
Assessment and Plan Assessment and plan: 45-year-old female with no significant past medical history Presenting to the emergency room today complaining of cough, shortness of breath and diarrhea for about 3 days. Patient was found to be in respiratory distress upon arrival in the emergency room. Initial oxygen saturation was said to be in the 50s and patient was subsequently placed on a nonrebreather with with improvement of oxygen saturation to the 70s. Patient was subsequently intubated in the emergency room. Most of the history was gotten from the emergency room staff as patient was already intubated. Family members were also not available. Review of patient's record indicates she has not received vaccination against the COVID-19. Work-up in the emergency room today reveals bilateral pulmonary infiltrate on the chest x-ray. Labs reveals significant leukocytosis of 31,000, hyperglycemia with blood glucose of 301, D-dimer was also significantly elevated and greater than 10,000. CT angiogram of the chest reveals multiple peripheral bilateral lower lobe pulmonary emboli. Patient became hypotensive and was given IV fluid and started on pressors in the ER. Patient has been admitted for a pneumonia with septic shock, pulmonary emboli and will also rule out COVID-19 infection. 03/08: New issues: Thrombocytosis question if this is secondary to HIT. We will send out HIT panel. Monitor platelets. Continue heparin drip at this time. Await pulmonary and ID input. 03/09: Patient noted to have Covid positive pneumonia ID input is appreciated patient on dexamethasone for complete 10 days of therapy now started on remdesi vir due to hypoxia also to complete 5 days therapy and Actemra a one-time. We will continue to monitor -Obtain q48-72h inflammatory markers - ferritin, Ddimer, CRP, LDH -Continue ceftriaxone 2 gm IV qday and azithromycin 500 mg PO qday for 5 days given elevated procal -Anticoagulation per hospital protocol -Proning as able I also requested a stat CBC to further evaluate thrombocytosis that was noted yesterday. I called maría elena, Serafin David to update and got voicemail left a message. I also called James Hernandez but his phone is unable to accept messages at this time. 03/10: Possible ileus versus bowel obstruction. Will obtain KUB. Continue to hold tube feeds at this time. We will also obtain GI consult if no resolution. Also patient noted to have urinary retention we will proceed with placing a Maya catheter. She does follow commands some when off sedation but gets easily agitated. Continue ICU management at this point. (1) Pneumonia Current Visit: Yes Status: Acute Plan to address problem: Patient commenced on empiric IV antibiotics. We will await culture results. (2) Hyperglycemia Current Visit: Yes Status: Acute Plan to address problem: Patient has no known history of diabetes mellitus. Will monitor blood glucose and also check hemoglobin A1c. (3) Respiratory failure with hypoxia Current Visit: Yes Status: Acute Plan to address problem: Possibly secondary to the pneumonia. Patient currently intubated. Consult placed to spirits model for further evaluation. (4) Septic shock Current Visit: Yes Status: Acute Plan to address problem: Secondary to the pneumonia. Patient has been started on empiric IV antibiotics ,IV fluid and pressors. Will monitor labs closely. (5) 2019 novel coronavirus infection-confirmed Current Visit: Yes Status: Acute Plan to address problem: We await COVID-[address] patient on isolation precautions. We will commence patient on IV steroid and also place consult to infectious disease . (6) Pulmonary embolism Current Visit: Yes Status: Acute Plan to address problem: Patient started on anticoagulation with heparin drip. (7) DVT prophylaxis Current Visit: Yes Status: Acute Plan to address problem: Patient currently on anticoagulation. (8) Full code status Current Visit: Yes Status: Acute Plan to address problem: Patient is a full code. The high probability of a clinically significant, sudden or life threatening deterioration of the [pulmonary] system(s) required my full and direct attention, intervention and personal management. The aggregate critical care time was [35] minutes. This time is in addition to time spent performing reported procedures but includes the following: [X] Data Review and interpretation [X] Patient assessment and monitoring of vital signs [X] Documentation [X] Medication orders and management History Interval history: Patient seen and examined sedated remains on full ventilatory support, overnight was noted to have nausea with vomiting. Tube feeds held. Also required straight cath for 800 cc of fluid. Hospitalist Physical - Physical exam Narrative exam: VITAL SIGNS: Reviewed. GENERAL: The patient appears normally developed, obese, on full mechanical support sedated vital signs as documented. HEAD: No signs of head trauma. EYES: Pupils are equal. . EARS: Able to examine due to sedation MOUTH: ET tube in place NECK: No adenopathy, no JVD. CHEST: Chest with diminished breath sounds bilaterally. No wheezes, rales, or rhonchi. CARDIAC: Regular rate and rhythm. S1 and S2, without murmurs, gallops, or rubs. VASCULAR: No Edema. Peripheral pulses normal and equal in all extremities. ABDOMEN: Soft, non tender and non distended. No rebound or guarding, and no masses palpated. Bowel Sounds normal. MUSCULOSKELETAL: Good range of motion of all major joints. Extremities without clubbing, cyanosis or edema. NEUROLOGIC EXAM: Sedated PSYCHIATRIC: Sedated SKIN: detail exam as documented in skin assessment - Constitutional Vitals: Temp Pulse Resp BP Pulse Ox 98.0 F 55 L 19 117/63 100 03/10/21 12:03 03/10/21 15:22 03/10/21 12:00 03/10/21 15:22 03/10/21 15:22 General appearance: Present: well-nourished, obese, other (Intubated and sedated) HEART Score - HEART Score Troponin: Troponin T 0.085 ng/mL (0.00-0.029) H 03/07/21 20:31 Results - Labs CBC & Chem 7: 03/10/21 04:32 03/10/21 04:32 Labs: Laboratory Last Values WBC 21.5 K/mm3 (4.5-11.0) H 03/10/21 04:32 RBC 3.33 M/mm3 (3.65-5.03) L 03/10/21 04:32 Hgb 9.4 gm/dl (10.1-14.3) L 03/10/21 04:32 Hct 28.9 % (30.3-42.9) L 03/10/21 04:32 MCV 87 fl (79-97) 03/10/21 04:32 MCH 28 pg (28-32) 03/10/21 04:32 MCHC 32 % (30-34) 03/10/21 04:32 RDW 15.3 % (13.2-15.2) H 03/10/21 04:32 Plt Count 218 K/mm3 (140-440) 03/10/21 04:32 Lymph % (Auto) Careers Adviser 03/07/21 21:04 Briscoe % (Auto) Careers Adviser 03/07/21 21:04 Eos % (Auto) Careers Adviser 03/07/21 21:04 Baso % (Auto) Careers Adviser 03/07/21 21:04 Lymph # (Auto) Careers Adviser 03/07/21 21:04 Briscoe # (Auto) Careers Adviser 03/07/21 21:04 Eos # (Auto) Careers Adviser 03/07/21 21:04 Baso # (Auto) Careers Adviser 03/07/21 21:04 Add Manual Diff Complete 03/10/21 01:12 Total Counted 100 03/10/21 01:12 Seg Neutrophils % Careers Adviser 03/10/21 01:12 Seg Neuts % (Manual) 89.0 % (40.0-70.0) H 03/10/21 01:12 Band Neutrophils % 11.0 % 03/09/21 12:10 Lymphocytes % (Manual) 6.0 % (13.4-35.0) L 03/10/21 01:12 Monocytes % (Manual) 5.0 % (0.0-7.3) 03/10/21 01:12 Metamyelocytes % 1.0 % 03/09/21 12:10 Myelocytes % 1.0 % 03/09/21 12:10 Nucleated RBC % Not Reportable 03/10/21 01:12 Seg Neutrophils # Careers Adviser 03/07/21 21:04 Seg Neutrophils # Man 20.1 K/mm3 (1.8-7.7) H 03/10/21 01:12 Band Neutrophils # 0.0 K/mm3 03/10/21 01:12 Lymphocytes # (Manual) 1.4 K/mm3 (1.2-5.4) 03/10/21 01:12 Abs React Lymphs (Man) 0.0 K/mm3 03/10/21 01:12 Monocytes # (Manual) 1.1 K/mm3 (0.0-0.8) H 03/10/21 01:12 Eosinophils # (Manual) 0.0 K/mm3 (0.0-0.4) 03/10/21 01:12 Basophils # (Manual) 0.0 K/mm3 (0.0-0.1) 03/10/21 01:12 Metamyelocytes # 0.0 K/mm3 03/10/21 01:12 Myelocytes # 0.0 K/mm3 03/10/21 01:12 Promyelocytes # 0.0 K/mm3 03/10/21 01:12 Blast Cells # 0.0 K/mm3 03/10/21 01:12 WBC Morphology Not Reportable 03/10/21 01:12 Hypersegmented Neuts Not Reportable 03/10/21 01:12 Hyposegmented Neuts Not Reportable 03/10/21 01:12 Hypogranular Neuts Not Reportable 03/10/21 01:12 Smudge Cells Not Reportable 03/10/21 01:12 Toxic Granulation Not Reportable 03/10/21 01:12 Toxic Vacuolation Not Reportable 03/10/21 01:12 Dohle Bodies Not Reportable 03/10/21 01:12 Pelger-Huet Anomaly Not Reportable 03/10/21 01:12 Jarrett Rods Not Reportable 03/10/21 01:12 Platelet Estimate Not Reportable 03/10/21 01:12 Clumped Platelets Not Reportable 03/10/21 01:12 Plt Clumps, EDTA Not Reportable 03/10/21 01:12 Large Platelets Not Reportable 03/10/21 01:12 Giant Platelets Not Reportable 03/10/21 01:12 Platelet Satelliting Not Reportable 03/10/21 01:12 Plt Morphology Comment Not Reportable 03/10/21 01:12 RBC Morphology Normal 03/10/21 01:12 Dimorphic RBCs Not Reportable 03/10/21 01:12 Polychromasia Not Reportable 03/10/21 01:12 Hypochromasia Not Reportable 03/10/21 01:12 Poikilocytosis Not Reportable 03/10/21 01:12 Anisocytosis Not Reportable 03/10/21 01:12 Microcytosis Not Reportable 03/10/21 01:12 Macrocytosis Not Reportable 03/10/21 01:12 Spherocytes Not Reportable 03/10/21 01:12 Pappenheimer Bodies Not Reportable 03/10/21 01:12 Sickle Cells Not Reportable 03/10/21 01:12 Target Cells Not Reportable 03/10/21 01:12 Tear Drop Cells Not Reportable 03/10/21 01:12 Ovalocytes Not Reportable 03/10/21 01:12 Helmet Cells Not Reportable 03/10/21 01:12 [place] Bodies Not Reportable 03/10/21 01:12 [place] Rings Not Reportable 03/10/21 01:12 Brant Cells Not Reportable 03/10/21 01:12 Bite Cells Not Reportable 03/10/21 01:12 Crenated Cell Not Reportable 03/10/21 01:12 Elliptocytes Not Reportable 03/10/21 01:12 Acanthocytes (Spur) Not Reportable 03/10/21 01:12 Rouleaux Not Reportable 03/10/21 01:12 Hemoglobin C Crystals Not Reportable 03/10/21 01:12 Schistocytes Not Reportable 03/10/21 01:12 Malaria parasites Not Reportable 03/10/21 01:12 Joss Bodies Not Reportable 03/10/21 01:12 Hem Pathologist Commnt No 03/10/21 01:12 PT 18.5 Sec. (12.2-14.9) H 03/08/21 07:55 INR 1.49 (0.87-1.13) H 03/08/21 07:55 APTT 113.5 Sec. (24.2-36.6) H* 03/08/21 07:55 D-Dimer > 22620 ng/mlDDU (0-234) H 03/07/21 21:28 Heparin Anti-Xa Level 0.62 U.I./ml (0.3-0.7) 03/10/21 04:32 ABG pH 7.440 (7.320-7.450) 03/10/21 03:29 POC ABG pCO2 26.7 mmHg (32.0-48.0) L 03/10/21 03:29 ABG pCO2 39.5 mm Hg 03/07/21 Unknown POC ABG pO2 148.7 mmHg (83-108) H 03/10/21 03:29 ABG pO2 62.6 mm Hg (80.0-90.0) L 03/07/21 Unknown POC ABG HCO3 17.7 03/10/21 03:29 ABG HCO3 20.7 mmol/L (20.0-26.0) 03/07/21 Unknown ABG O2 Saturation 98.9 (0-100) 03/10/21 03:29 ABG O2 Content 15.1 (0.0-44) 03/07/21 Unknown POC ABG Base Excess -5.4 03/10/21 03:29 ABG Base Excess -4.7 mmol/L (-2.0-3.0) L 03/07/21 Unknown ABG Hemoglobin 9.5 (12.0-17.5) L 03/10/21 03:29 ABG Oxyhemoglobin 98.3 (94-98) H 03/10/21 03:29 ABG Carboxyhemoglobin 1.4 % (0.0-5.0) 03/07/21 Unknown ABG Methemoglobin 0.3 (0.0-1.5) 03/10/21 03:29 ABG Sodium 140.8 mmol/L (136.0-145.0) 03/10/21 03:29 ABG Potassium 4.7 mmol/L (3.40-4.50) H 03/10/21 03:29 ABG Chloride 114.0 mmol/L (98-107) H 03/10/21 03:29 ABG Glucose 263 mg/dL (65-95) H 03/10/21 03:29 Oxyhemoglobin 87.3 % (95.0-99.0) L 03/07/21 Unknown Carboxyhemoglobin 0.3 (0.5-1.5) L 03/10/21 03:29 FiO2 100 % 03/07/21 Unknown FiO2 % 85.0 03/10/21 03:29 Sodium 142 mmol/L (137-145) 03/10/21 04:32 Sodium 143 mmol/L (137-145) 03/10/21 04:32 Potassium 4.8 mmol/L (3.6-5.0) 03/10/21 04:32 Potassium 4.8 mmol/L (3.6-5.0) 03/10/21 04:32 Chloride 111.0 mmol/L (98-107) H 03/10/21 04:32 Chloride 112.2 mmol/L (98-107) H 03/10/21 04:32 Carbon Dioxide 21 mmol/L (22-30) L 03/10/21 04:32 Carbon Dioxide 21 mmol/L (22-30) L 03/10/21 04:32 Anion Gap 15 mmol/L 03/10/21 04:32 Anion Gap 15 mmol/L 03/10/21 04:32 BUN 24 mg/dL (7-17) H 03/10/21 04:32 BUN 25 mg/dL (7-17) H 03/10/21 04:32 Creatinine 0.6 mg/dL (0.6-1.2) 03/10/21 04:32 Creatinine 0.6 mg/dL (0.6-1.2) 03/10/21 04:32 Estimated GFR > 60 ml/min 03/10/21 04:32 Estimated GFR > 60 ml/min 03/10/21 04:32 BUN/Creatinine Ratio 40 % 03/10/21 04:32 BUN/Creatinine Ratio 42 % 03/10/21 04:32 Glucose 258 mg/dL (65-100) H 03/10/21 04:32 Glucose 262 mg/dL (65-100) H 03/10/21 04:32 POC Glucose 234 mg/dL (70-105) H 03/10/21 11:50 Lactic Acid 1.90 mmol/L (0.7-2.0) 03/10/21 01:12 Calcium 7.3 mg/dL (8.4-10.2) L 03/10/21 04:32 Calcium 7.5 mg/dL (8.4-10.2) L 03/10/21 04:32 Ferritin 148.8 ng/mL (10.0-200.0) 03/07/21 20:31 Total Bilirubin 0.20 mg/dL (0.1-1.2) 03/10/21 04:32 AST 19 units/L (5-40) 03/10/21 04:32 ALT 14 units/L (7-56) 03/10/21 04:32 Alkaline Phosphatase 93 units/L (35-129) 03/10/21 04:32 Lactate Dehydrogenase 1259 units/L (91-180) H 03/07/21 20:31 Troponin T 0.085 ng/mL (0.00-0.029) H 03/07/21 20:31 C-Reactive Protein 25.50 mg/dL (0.00-1.30) H 03/07/21 20:31 Total Protein 5.8 g/dL (6.3-8.2) L 03/10/21 04:32 Albumin 2.8 g/dL (3.9-5) L 03/10/21 04:32 Albumin/Globulin Ratio 0.9 % 03/10/21 04:32 Triglycerides 213 mg/dL (2-149) H 03/07/21 20:31 Cholesterol 141 mg/dL (50-199) 03/07/21 20:31 LDL Cholesterol Direct 72 mg/dL (50-130) 03/07/21 20:31 HDL Cholesterol 34 mg/dL (40-59) L 03/07/21 20:31 Cholesterol/HDL Ratio 4.14 % 03/07/21 20:31 Procalcitonin 0.54 ng/mL (<0.15) 03/07/21 20:31 HCG, Qual Negative (Negative) 03/07/21 22:48 Arterial Blood Glucose 263 mg/dL (65-95) H 03/10/21 03:29 Arterial Blood Ionized Calcium 4.4 mg/dL (4.6-5.3) L 03/10/21 03:29 Urine Color Yellow (Yellow) 03/08/21 05:51 Urine Turbidity Clear (Clear) 03/08/21 05:51 Urine pH 6.0 (5.0-7.0) 03/08/21 05:51 Ur Specific Thurman > 1.050 (1.003-1.030) H 03/08/21 05:51 Urine Protein 100 mg/dl mg/dL (Negative) 03/08/21 05:51 Urine Glucose (UA) Neg mg/dL (Negative) 03/08/21 05:51 Urine Ketones Neg mg/dL (Negative) 03/08/21 05:51 Urine Blood Neg (Negative) 03/08/21 05:51 Urine Nitrite Neg (Negative) 03/08/21 05:51 Urine Bilirubin Neg (Negative) 03/08/21 05:51 Urine Urobilinogen 4.0 mg/dL (<2.0) 03/08/21 05:51 Ur Leukocyte Esterase Neg (Negative) 03/08/21 05:51 Urine WBC (Auto) 5.0 /HPF (0.0-6.0) 03/08/21 05:51 Urine RBC (Auto) 5.0 /HPF (0.0-6.0) 03/08/21 05:51 U Epithel Cells (Auto) < 1.0 /HPF (0-13.0) 03/08/21 05:51 Urine Bacteria (Auto) 1+ /HPF (Negative) 03/08/21 05:51 Urine Mucus Few /HPF 03/08/21 05:51 Coronavirus (PCR) Positive (Negative) A 03/07/21 Unknown Microbiology: Microbiology 03/08/21 17:05 Tracheal Aspirate Sputum Culture - Preliminary 03/08/21 Unknown Urine,Catheterized - Straight Catheter Urine Culture - Final NO GROWTH AFTER 48 HOURS 03/10/21 04:32 Peripheral/Venous Blood Culture - Preliminary Culture in Progress 03/10/21 01:12 Peripheral/Venous Blood Culture - Preliminary Culture in Progress 03/07/21 20:31 Peripheral/Venous Blood Culture - Preliminary NO GROWTH AFTER 48 HOURS 03/07/21 20:38 Peripheral/Venous Blood Culture - Preliminary NO GROWTH AFTER 48 HOURS Maya/IV: Voiding Method Indwelling Catheter Active Medications - Current Medications Current Medications: Generic Name Dose Route Start Last Admin Trade Name Freq PRN Reason Stop Dose Admin Acetaminophen 650 mg 03/10/21 00:30 Acetaminophen 650 Mg Rect Supp HI Q4H PRN Pain, Mild (1-3) Lipase/Protease/Amylase 1 each 03/08/21 13:40 Lipase 10,500/Protease 25,000/Amylase 43,750 (Units) Dr Coreas FEEDTUBE PRN PRN For Clogged Feeding Tube Dexamethasone 8 mg 03/08/21 10:00 03/10/21 09:36 Dexamethasone 4 Mg/Ml Vial IV 03/17/21 10:01 8 mg DAILY MARCO ANTONIO Administration Dextrose 50 ml 03/07/21 22:57 Dextrose 50% In Water (25gm) 50 Ml Syringe IV Q30MIN PRN Hypoglycemia Protocol Famotidine 20 mg 03/08/21 10:00 03/10/21 09:36 Famotidine 20 Mg/2 Ml Inj IV 20 mg BID MARCO ANTONIO Administration Fentanyl 50 mcg 03/07/21 21:20 03/07/21 22:13 Fentanyl 100 Mcg/2 Ml Inj IV 50 mcg Q10MIN PRN Administration ANALGESIA Heparin Sodium (Porcine) 8,000 unit 03/08/21 03:37 Heparin 10,000 Units/10 Ml Vial 40 unit/kg (8000 unit) IV Q6H PRN Anti-Xa Assay < 0.1 units/ml Hydrophilic Ointment 1 applic 03/08/21 12:42 Lip Therapy Vaseline TP Q2HR PRN Dry Lips Propofol 1,000 mg in 100 mls @ 3.084 mls/hr 03/07/21 21:00 03/10/21 13:22 Diprivan 10 Mg/Ml IV 16 mcg/kg/min TITR MARCO ANTONIO 9.869 mls/hr Titration Protocol 5 MCG/KG/MIN Fentanyl Citrate 2,000 mcg in 100 mls @ 5.14 mls/hr 03/07/21 22:00 03/10/21 15:18 Fentanyl Drip Premix IV 3 mcg/kg/hr TITR MARCO ANTONIO 15.42 mls/hr Administration Protocol 1 MCG/KG/HR Norepinephrine 4 mg in 250 mls @ 7.5 mls/hr 03/07/21 23:45 03/08/21 08:15 Levophed Drip 4 Mg/Ns 250 Ml IV 0 mcg/min TITR MARCO ANTONIO 0 mls/hr Titration Protocol 2 MCG/MIN Ceftriaxone Sodium 2 gm in 100 mls @ 200 mls/hr 03/08/21 21:30 03/09/21 21:50 Rocephin/Ns 2 Gm/100 Ml IV 03/12/21 21:59 200 mls/hr Q24H [facility] Administration Protocol Azithromycin 500 mg in 250 mls @ 250 mls/hr 03/08/21 22:00 03/09/21 21:49 Zithromax/Ns IV 03/12/21 22:59 250 mls/hr Q24H [facility] Administration Protocol Heparin Sodium/Sodium Chloride 25,000 unit in 500 mls @ 30 mls/hr 03/08/21 04:00 03/10/21 14:41 Heparin/ 0.45% Nacl-25,000 Unit/500 Ml IV 1,700 units/hr TITR MARCO ANTONIO 34 mls/hr Administration Protocol 1,500 UNITS/HR REMDESIVIR 100 mg/ Sodium 250 mls @ 500 mls/hr 03/09/21 21:00 03/09/21 21:50 Chloride IV 03/12/21 21:29 500 mls/hr Q24HR@2100 [facility] Administration Insulin Glargine 10 units 03/10/21 22:00 Insulin Glargine 100 Units/Ml SUB-Q QHS [facility] Insulin Human Lispro 0 unit 03/08/21 12:00 03/10/21 12:39 Insulin Lispro 100 Unit/Ml SUB-Q 3 unit Q6HR [facility] Administration Protocol Magnesium Hydroxide 30 ml 03/07/21 22:57 Magnesium Hydroxide (Mom) Oral Liqd Udc PO Q4H PRN Constipation Metoclopramide HCl 5 mg 03/10/21 14:00 03/10/21 14:46 Metoclopramide 10 Mg/2 Ml Inj IV 03/13/21 08:01 5 mg Q6H MARCO ANTONIO Administration Morphine Sulfate 2 mg 03/07/21 22:57 03/09/21 21:29 Morphine 2 Mg/1 Ml Inj IV 2 mg Q4H PRN Administration Pain, Moderate (4-6) Multi-Ingred Cream/Lotion/Oil/Oint 1 applic 03/08/21 12:42 Mineral Oil/Petrolatum, White Ophth Oint 3.5 Gm OU Q4HR PRN Dry Eye(s) Ondansetron HCl 4 mg 03/07/21 22:57 Ondansetron 4 Mg/2 Ml Inj IV Q8H PRN Nausea And Vomiting Senna/Docusate Sodium 1 tab 03/08/21 22:00 03/10/21 09:36 Sennosides/Docusate Sodium 8.6/50 Mg Tab FEEDTUBE 1 tab BID MARCO ANTONIO Administration Simple Syrup 15 ml 03/08/21 13:40 Simple Syrup 15 Ml FEEDTUBE PRN PRN Hypoglycemia Simple Syrup 30 ml 03/08/21 13:40 Simple Syrup 15 Ml FEEDTUBE PRN PRN Hypoglycemia Sodium Bicarbonate 325 mg 03/08/21 13:40 Sodium Bicarbonate 325 Mg Tab FEEDTUBE PRN PRN For Clogged Feeding Tube Sodium Chloride 10 ml 03/08/21 10:00 03/10/21 09:36 Sodium Chloride 0.9% 10 Ml Flush Syringe IV 10 ml BID MARCO ANTONIO Administration Sodium Chloride 10 ml 03/07/21 22:57 Sodium Chloride 0.9% 10 Ml Flush Syringe IV PRN PRN LINE FLUSH Sodium Chloride 50 ml 03/09/21 21:00 03/09/21 21:51 Sodium Chloride 0.9% 50 Ml Ivpb IV 03/12/21 21:01 50 ml Q24HR@2100 MARC OANTONIO Administration Tamsulosin HCl 0.4 mg 03/10/21 14:00 03/10/21 14:46 Tamsulosin 0.4 Mg Cap PO 0.4 mg QDAY MARCO ANTONIO Administration Nutrition/Malnutrition Assess - Dietary Evaluation Nutrition/Malnutrition Findings: Nutrition Notes Start: 03/08/21 12:27 Freq: Status: Active Protocol: Document 03/10/21 11:47 CW (Rec: 03/10/21 12:20 CW [id number]) Nutrition Notes Initial or Follow up Reassessment Current Diagnosis Sepsis,Respiratory Failure Other Pertinent Diagnosis Pneu, r/o COVID-19, pulmonary embolism Current Diet Vital AF at 50 ml/hr Labs/Tests BG 258 Pertinent Medications Propofol at 12.336 ml/hr ( provides 326 kcal) Sennakopt Decadron Humalog NS at 1L Height 5 ft Weight 102.8 kg Jenison Body Weight (kg) 45.45 BMI 44.2 Weight Status Morbidly Obese Subjective/Other Information F/U for TF and vent status. Pt remains on mechanical vent. TF held at this time d/t vomiting per RN. MD ordered NGT to LIS; If residuals are minimal plan is to restart TF at 10 ml/hr and increase grauduall as tolerated. MD also plans to initiate reglan. Percent of energy/protein needs met: 0%/0% Burn Absent Trauma Absent GI Symptoms Vomiting Current % PO Negligible Minimum of two criteria No Reduced Co Op Strength Measurably Reduced (severe) #1 Nutrition Diagnosis Inadequate oral intake Diagnosis Progress(for reassessment Continues documentation) Is patient on ventilator? Yes Is Patient Ambulatory and/or Out of Bed No REE-([facility]-confined to bed) 1904.676 Kcal/Kg value to use for calculation 14 Approximate Energy Requirements Using 1439 kcal/Kg Calculation Used for Recommendations Kcal/kg Additional Notes Pro needs up to 2.5g/kg IBW: 114g/day Fluid needs 1ml/kcal Nutrition Intervention Change Diet Order: Restart TF when medically feasible Nutrition Support: Vital AF 1.2 at 50ml/hr with 80ml water flush q4h. Kcal 1,440 Protein (gm) 90 Fluid (mL) 937 Goal #1 TF tolerance Goal #2 TF (at goal rate) to meet at least 75% energy and pro needs Anticipated Discharge Needs: Unable to determine at this time Follow-Up By: 03/13/21 Additional Comments F/U for TF restart and tolerance
[2021-03-10] MEDS: REMDESIVIR 100 MG in SODIUM CHLORIDE 0.9% 250ML 250 ML IV SCH (21:45)
[2021-03-10] MEDS: SODIUM CHLORIDE 0.9% 50 ML IVPB IV SCH (21:45)
[2021-03-10] MEDS: AZITHROMYCIN/NS 500 MG/250 ML 500 MG/250 ML BAG IV SCH (21:47)
[2021-03-10] MEDS: cefTRIAXone/NS 2 GM/100 ML 2 GM/100 ML BAG IV SCH (21:47)
[2021-03-10] MEDS ORDERED: INSULIN GLARGINE 100 UNITS/ML SUB-Q SCH (22:00)
--- NOTE | 2021-03-10 23:07 | XRay Report ---
ABDOMEN 1 VIEW 03/10/2021 8:45 PM INDICATION / CLINICAL INFORMATION: nausea with vomiting. COMPARISON: 03/08/2021 FINDINGS: TUBES / LINES: Unchanged appearance of the gastric tube with radiolucent marker at the level of the g astroesophageal junction. BOWEL GAS PATTERN: No significant abnormality. FREE AIR / EXTRALUMINAL GAS: None. ADDITIONAL FINDINGS: 2 radiopaque discoid foci are visualized projecting over the hepatic flexure and measure approximately 2 cm. IMPRESSION: 1. Stable appearance of the gastric tube with radiolucent marker at the level of the gastroesophageal junction. Consider advancing 4 cm. 2. 2 radiopaque discoid foci are visualized projecting over the hepatic flexure. All these could repr esent radiopaque tablets, consider correlation for ingested foreign object. Findings are not present on 03/08/2021. Signer Name: Jakob Hopkins MD Signed: 03/10/2021 11:02 PM Workstation Name: [id number]
[2021-03-11] MEDS: INSULIN LISPRO 100 UNIT/ML SUB-Q SCH ×4 (00:49→18:23)
[2021-03-11] MEDS: HEPARIN/ 0.45% NACL DRIP 25,000 UNIT/500 ML BAG IV SCH ×2 (04:17→17:54)
[2021-03-11] MEDS: fentaNYL DRIP Premix 2,000 MCG/100 ML BAG IV SCH ×4 (04:18→20:42)
[2021-03-11 06:02] LABS: Alanine Aminotransferase 12 units/L (7-56); Albumin 3.2 g/dL (3.9-5); Blood Urea Nitrogen 23 mg/dL (7-17); Hemolysis Index 1
[2021-03-11 06:03] LABS: BUN/Creatinine Ratio 38
--- NOTE | 2021-03-11 06:10 | XRay Report ---
CHEST 1 VIEW, 03/11/2021 4:29 CLINICAL INFORMATION/INDICATION: Respiratory failure COMPARISON: Chest radiograph, 03/10/2021 at 5:01 AM FINDINGS: SUPPORT DEVICES: Right-sided central line and endotracheal tube remain in stable position. The sideho le of the esophagogastric tube is at the level of the gastroesophageal junction. HEART: The cardiac silhouette is normal in size. LUNGS/PLEURA: No focal airspace consolidation or large pleural effusion is visualized. No pneumothora x is identified. ADDITIONAL FINDINGS: No additional acute findings. IMPRESSION: 1. The sidehole of the esophagogastric tube is at the level of the gastroesophageal junction. The tub e may need to be advanced several centimeters for optimal positioning. Signer Name: Edwina Morin MD Signed: 03/11/2021 6:06 AM Workstation Name: [id number]
[2021-03-11] MEDS: SENNOSIDES/DOCUSATE SODIUM 8.6/50 MG TAB FEEDTUBE SCH ×3 (09:17→22:04)
[2021-03-11] MEDS: METOCLOPRAMIDE 10 MG/2 ML INJ IV SCH ×4 (09:17→21:37)
[2021-03-11] MEDS: TAMSULOSIN 0.4 MG CAP PO SCH (09:26)
[2021-03-11] MEDS: dexAMETHasone 4 MG/ML VIAL IV SCH (09:26)
[2021-03-11] MEDS: FAMOTIDINE 20 MG/2 ML INJ IV SCH ×2 (09:26→22:04)
--- NOTE | 2021-03-11 10:31 | Progress Note ---
Assessment and Plan Cultures: Blood culture no growth COVID-19 PCR: Positive 03/08/2021 tracheal aspirate: No growth 03/08/2021 urine culture: No growth 03/10/2021 blood culture: No growth A/P: 45-year-old female with no past medical history admitted with COVID-19 pneumonia and bilateral pulmonary emboli. #Severe COVID-19 pneumonia: Patient presented with 3 days of symptoms, chest x- ray with diffuse bilateral infiltrates, admission O2 sats 50% on room air. Inflammatory markers elevated. #Acute hypoxemic respiratory failure: secondary to COVID-19 infection. Currently on the vent. #Bilateral pulmonary emboli: Anticoagulation per primary #Obesity: Associated with worse COVID-19 outcomes. Recs: -continue steroids for 10 days -Complete 5 days of remdesivir -S/P Actemra 03/09/2021 -Complete ceftriaxone 2 gm IV qday and azithromycin 500 mg PO qday for 5 days given elevated procal -Obtain q48-72h inflammatory markers - ferritin, Ddimer, CRP, LDH -Anticoagulation for PE per primary team Micki Arellano MD, FACP [facility] ([facility] O: [phone] F: [phone] Subjective Date of service: 03/11/21 Principal diagnosis: Ac. hypoxemic resp. failure; Septic Shock; COVID-19 Pneumonia; VTE; NSTEMI Interval history: No fever. Remains on the vent. Objective - Exam Narrative Exam: Physical Exam (reviewed in chart to minimize risk of transmission) Constitutional: deferred Head, Ears, Nose: deferred Eyes: deferred Neck: deferred Oral: deferred Cardiovascular: deferred Respiratory: deferred GI: deferred Musculoskeletal: deferred Skin: deferred Hem/Lymphatic: deferred Psych: deferred Neurological: deferred - Constitutional Vitals: Vital Signs Temp Pulse Resp BP Pulse Ox 98.3 F 65 25 H 143/73 100 03/11/21 08:00 03/11/21 10:00 03/11/21 10:00 03/11/21 10:00 03/11/21 10:00 Temperature -Last 24 Hours Temperature 98.3 F Temperature 98.6 F Temperature 98.1 F Temperature 98.1 F Temperature 98.0 F Temperature 98.0 F - Labs CBC & Chem 7: 03/10/21 04:32 03/11/21 04:40 Labs: Abnormal lab results 03/10/21 03/10/21 03/10/21 Range/Units 11:50 17:18 21:39 ABG pH (7.320-7.450) POC ABG pCO2 (32.0-48.0) mmHg POC ABG pO2 (83-108) mmHg ABG Hemoglobin (12.0-17.5) ABG Oxyhemoglobin (94-98) ABG Chloride (98-107) mmol/L ABG Glucose (65-95) mg/dL Carboxyhemoglobin (0.5-1.5) Chloride (98-107) mmol/L Carbon Dioxide (22-30) mmol/L BUN (7-17) mg/dL Glucose (65-100) mg/dL POC Glucose 234 H 248 H 242 H (70-105) mg/dL Calcium (8.4-10.2) mg/dL Total Protein (6.3-8.2) g/dL Albumin (3.9-5) g/dL Arterial Blood Glucose (65-95) mg/dL Arterial Blood Ionized Calcium (4.6-5.3) mg/dL 03/10/21 03/11/21 03/11/21 Range/Units 22:39 02:12 04:40 ABG pH 7.481 H (7.320-7.450) POC ABG pCO2 27.3 L (32.0-48.0) mmHg POC ABG pO2 180.2 H (83-108) mmHg ABG Hemoglobin 11.2 L (12.0-17.5) ABG Oxyhemoglobin 99.1 H (94-98) ABG Chloride 111.0 H (98-107) mmol/L ABG Glucose 311 H (65-95) mg/dL Carboxyhemoglobin 0.2 L (0.5-1.5) Chloride 108.6 H (98-107) mmol/L Carbon Dioxide 21 L (22-30) mmol/L BUN 23 H (7-17) mg/dL Glucose 276 H (65-100) mg/dL POC Glucose 245 H (70-105) mg/dL Calcium 8.0 L (8.4-10.2) mg/dL Total Protein 6.1 L (6.3-8.2) g/dL Albumin 3.2 L (3.9-5) g/dL Arterial Blood Glucose 311 H (65-95) mg/dL Arterial Blood Ionized Calcium 4.5 L (4.6-5.3) mg/dL 03/11/21 Range/Units 04:55 ABG pH (7.320-7.450) POC ABG pCO2 (32.0-48.0) mmHg POC ABG pO2 (83-108) mmHg ABG Hemoglobin (12.0-17.5) ABG Oxyhemoglobin (94-98) ABG Chloride (98-107) mmol/L ABG Glucose (65-95) mg/dL Carboxyhemoglobin (0.5-1.5) Chloride (98-107) mmol/L Carbon Dioxide (22-30) mmol/L BUN (7-17) mg/dL Glucose (65-100) mg/dL POC Glucose 260 H (70-105) mg/dL Calcium (8.4-10.2) mg/dL Total Protein (6.3-8.2) g/dL Albumin (3.9-5) g/dL Arterial Blood Glucose (65-95) mg/dL Arterial Blood Ionized Calcium (4.6-5.3) mg/dL
--- NOTE | 2021-03-11 10:50 | Progress Note ---
Assessment and Plan Assessment and plan: 45-year-old female with no significant past medical history Presenting to the emergency room today complaining of cough, shortness of breath and diarrhea for about 3 days. Patient was found to be in respiratory distress upon arrival in the emergency room. Initial oxygen saturation was said to be in the 50s and patient was subsequently placed on a nonrebreather with with improvement of oxygen saturation to the 70s. Patient was subsequently intubated in the emergency room. Most of the history was gotten from the emergency room staff as patient was already intubated. Family members were also not available. Review of patient's record indicates she has not received vaccination against the COVID-19. Work-up in the emergency room today reveals bilateral pulmonary infiltrate on the chest x-ray. Labs reveals significant leukocytosis of 31,000, hyperglycemia with blood glucose of 301, D-dimer was also significantly elevated and greater than 10,000. CT angiogram of the chest reveals multiple peripheral bilateral lower lobe pulmonary emboli. Patient became hypotensive and was given IV fluid and started on pressors in the ER. Patient has been admitted for a pneumonia with septic shock, pulmonary emboli and will also rule out COVID-19 infection. 03/08: New issues: Thrombocytosis question if this is secondary to HIT. We will send out HIT panel. Monitor platelets. Continue heparin drip at this time. Await pulmonary and ID input. 03/09: Patient noted to have Covid positive pneumonia ID input is appreciated patient on dexamethasone for complete 10 days of therapy now started on remdesi vir due to hypoxia also to complete 5 days therapy and Actemra a one-time. We will continue to monitor -Obtain q48-72h inflammatory markers - ferritin, Ddimer, CRP, LDH -Continue ceftriaxone 2 gm IV qday and azithromycin 500 mg PO qday for 5 days given elevated procal -Anticoagulation per hospital protocol -Proning as able I also requested a stat CBC to further evaluate thrombocytosis that was noted yesterday. I called maría elena, Serafin David to update and got voicemail left a message. I also called James Hernandez but his phone is unable to accept messages at this time. 03/10: Possible ileus versus bowel obstruction. Will obtain KUB. Continue to hold tube feeds at this time. We will also obtain GI consult if no resolution. Also patient noted to have urinary retention we will proceed with placing a Maya catheter. She does follow commands some when off sedation but gets easily agitated. Continue ICU management at this point. 03/11: Blood sugar still elevated adjusted nighttime insulin for better coverage. KUB concerning for radiopaque object possible tablet. Was not present on 03 08. We will repeat a KUB in a.m. to see if resolution versus ileus. Continue current management for COVID-19. Continue heparin drip for noted pulmonary embolism. Platelets actually improved despite being on heparin doubt HIT. Patient still requires critical care monitoring. Altered mental status still present. (1) Pneumonia Current Visit: Yes Status: Acute Plan to address problem: Patient commenced on empiric IV antibiotics. We will await culture results. (2) Hyperglycemia Current Visit: Yes Status: Acute Plan to address problem: Patient has no known history of diabetes mellitus. Will monitor blood glucose and also check hemoglobin A1c. (3) Respiratory failure with hypoxia Current Visit: Yes Status: Acute Plan to address problem: Possibly secondary to the pneumonia. Patient currently intubated. Consult placed to industrial engineering technician for further evaluation. (4) Septic shock Current Visit: Yes Status: Acute Plan to address problem: Secondary to the pneumonia. Patient has been started on empiric IV antibiotics ,IV fluid and pressors. Will monitor labs closely. (5) 2019 novel coronavirus infection-confirmed Current Visit: Yes Status: Acute Plan to address problem: We await COVID-[address] patient on isolation precautions. We will commence patient on IV steroid and also place consult to infectious disease . (6) Pulmonary embolism Current Visit: Yes Status: Acute Plan to address problem: Patient started on anticoagulation with heparin drip. (7) acute metabolic encephalopathy (8)DVT prophylaxis Current Visit: Yes Status: Acute Plan to address problem: Patient currently on anticoagulation. (9) Full code status Current Visit: Yes Status: Acute Plan to address problem: Patient is a full code. Plan discussed at bedside with nursing staff The high probability of a clinically significant, sudden or life threatening deterioration of the [pulmonary] system(s) required my full and direct attention, intervention and personal management. The aggregate critical care time was [35] minutes. This time is in addition to time spent performing reported procedures but includes the following: [X] Data Review and interpretation [X] Patient assessment and monitoring of vital signs [X] Documentation [X] Medication orders and management History Interval history: Patient seen and examined sedated remains on full ventilatory support, tube feeding resumed this morning no further nausea vomiting reported. Maya catheter placed for urinary retention with good urine output noted. Hospitalist Physical - Physical exam Narrative exam: VITAL SIGNS: Reviewed. GENERAL: The patient appears normally developed, obese, on full mechanical supp ort sedated vital signs as documented. HEAD: No signs of head trauma. EYES: Pupils are equal. . EARS: Able to examine due to sedation MOUTH: ET tube in place NECK: No adenopathy, no JVD. CHEST: Chest with diminished breath sounds bilaterally. No wheezes, rales, or rhonchi. CARDIAC: Regular rate and rhythm. S1 and S2, without murmurs, gallops, or rubs. VASCULAR: No Edema. Peripheral pulses normal and equal in all extremities. ABDOMEN: Soft, non tender and non distended. No rebound or guarding, and no masses palpated. Bowel Sounds normal. MUSCULOSKELETAL: Good range of motion of all major joints. Extremities without clubbing, cyanosis or edema. NEUROLOGIC EXAM: Sedated PSYCHIATRIC: Sedated SKIN: detail exam as documented in skin assessment - Constitutional Vitals: Temp Pulse Resp BP Pulse Ox 98.3 F 65 25 H 143/73 100 03/11/21 08:00 03/11/21 10:00 03/11/21 10:00 03/11/21 10:00 03/11/21 10:00 General appearance: Present: well-nourished, obese, other (Intubated and sedated ) HEART Score - HEART Score Troponin: Troponin T 0.085 ng/mL (0.00-0.029) H 03/07/21 20:31 Results - Labs CBC & Chem 7: 03/10/21 04:32 03/11/21 04:40 Labs: Laboratory Last Values WBC 21.5 K/mm3 (4.5-11.0) H 03/10/21 04:32 RBC 3.33 M/mm3 (3.65-5.03) L 03/10/21 04:32 Hgb 9.4 gm/dl (10.1-14.3) L 03/10/21 04:32 Hct 28.9 % (30.3-42.9) L 03/10/21 04:32 MCV 87 fl (79-97) 03/10/21 04:32 MCH 28 pg (28-32) 03/10/21 04:32 MCHC 32 % (30-34) 03/10/21 04:32 RDW 15.3 % (13.2-15.2) H 03/10/21 04:32 Plt Count 218 K/mm3 (140-440) 03/10/21 04:32 Lymph % (Auto) Tube Coater 03/07/21 21:04 Adams % (Auto) Tube Coater 03/07/21 21:04 Eos % (Auto) Tube Coater 03/07/21 21:04 Baso % (Auto) Tube Coater 03/07/21 21:04 Lymph # (Auto) Tube Coater 03/07/21 21:04 Adams # (Auto) Tube Coater 03/07/21 21:04 Eos # (Auto) Tube Coater 03/07/21 21:04 Baso # (Auto) Tube Coater 03/07/21 21:04 Add Manual Diff Complete 03/10/21 01:12 Total Counted 100 03/10/21 01:12 Seg Neutrophils % Tube Coater 03/10/21 01:12 Seg Neuts % (Manual) 89.0 % (40.0-70.0) H 03/10/21 01:12 Band Neutrophils % 11.0 % 03/09/21 12:10 Lymphocytes % (Manual) 6.0 % (13.4-35.0) L 03/10/21 01:12 Monocytes % (Manual) 5.0 % (0.0-7.3) 03/10/21 01:12 Metamyelocytes % 1.0 % 03/09/21 12:10 Myelocytes % 1.0 % 03/09/21 12:10 Nucleated RBC % Not Reportable 03/10/21 01:12 Seg Neutrophils # Tube Coater 03/07/21 21:04 Seg Neutrophils # Man 20.1 K/mm3 (1.8-7.7) H 03/10/21 01:12 Band Neutrophils # 0.0 K/mm3 03/10/21 01:12 Lymphocytes # (Manual) 1.4 K/mm3 (1.2-5.4) 03/10/21 01:12 Abs React Lymphs (Man) 0.0 K/mm3 03/10/21 01:12 Monocytes # (Manual) 1.1 K/mm3 (0.0-0.8) H 03/10/21 01:12 Eosinophils # (Manual) 0.0 K/mm3 (0.0-0.4) 03/10/21 01:12 Basophils # (Manual) 0.0 K/mm3 (0.0-0.1) 03/10/21 01:12 Metamyelocytes # 0.0 K/mm3 03/10/21 01:12 Myelocytes # 0.0 K/mm3 03/10/21 01:12 Promyelocytes # 0.0 K/mm3 03/10/21 01:12 Blast Cells # 0.0 K/mm3 03/10/21 01:12 WBC Morphology Not Reportable 03/10/21 01:12 Hypersegmented Neuts Not Reportable 03/10/21 01:12 Hyposegmented Neuts Not Reportable 03/10/21 01:12 Hypogranular Neuts Not Reportable 03/10/21 01:12 Smudge Cells Not Reportable 03/10/21 01:12 Toxic Granulation Not Reportable 03/10/21 01:12 Toxic Vacuolation Not Reportable 03/10/21 01:12 Dohle Bodies Not Reportable 03/10/21 01:12 Pelger-Huet Anomaly Not Reportable 03/10/21 01:12 Jarrett Rods Not Reportable 03/10/21 01:12 Platelet Estimate Not Reportable 03/10/21 01:12 Clumped Platelets Not Reportable 03/10/21 01:12 Plt Clumps, EDTA Not Reportable 03/10/21 01:12 Large Platelets Not Reportable 03/10/21 01:12 Giant Platelets Not Reportable 03/10/21 01:12 Platelet Satelliting Not Reportable 03/10/21 01:12 Plt Morphology Comment Not Reportable 03/10/21 01:12 RBC Morphology Normal 03/10/21 01:12 Dimorphic RBCs Not Reportable 03/10/21 01:12 Polychromasia Not Reportable 03/10/21 01:12 Hypochromasia Not Reportable 03/10/21 01:12 Poikilocytosis Not Reportable 03/10/21 01:12 Anisocytosis Not Reportable 03/10/21 01:12 Microcytosis Not Reportable 03/10/21 01:12 Macrocytosis Not Reportable 03/10/21 01:12 Spherocytes Not Reportable 03/10/21 01:12 Pappenheimer Bodies Not Reportable 03/10/21 01:12 Sickle Cells Not Reportable 03/10/21 01:12 Target Cells Not Reportable 03/10/21 01:12 Tear Drop Cells Not Reportable 03/10/21 01:12 Ovalocytes Not Reportable 03/10/21 01:12 Helmet Cells Not Reportable 03/10/21 01:12 [place] Bodies Not Reportable 03/10/21 01:12 [place] Rings Not Reportable 03/10/21 01:12 Brant Cells Not Reportable 03/10/21 01:12 Bite Cells Not Reportable 03/10/21 01:12 Crenated Cell Not Reportable 03/10/21 01:12 Elliptocytes Not Reportable 03/10/21 01:12 Acanthocytes (Spur) Not Reportable 03/10/21 01:12 Rouleaux Not Reportable 03/10/21 01:12 Hemoglobin C Crystals Not Reportable 03/10/21 01:12 Schistocytes Not Reportable 03/10/21 01:12 Malaria parasites Not Reportable 03/10/21 01:12 Joss Bodies Not Reportable 03/10/21 01:12 Hem Pathologist Commnt No 03/10/21 01:12 PT 18.5 Sec. (12.2-14.9) H 03/08/21 07:55 INR 1.49 (0.87-1.13) H 03/08/21 07:55 APTT 113.5 Sec. (24.2-36.6) H* 03/08/21 07:55 D-Dimer > 04771 ng/mlDDU (0-234) H 03/07/21 21:28 Heparin Anti-Xa Level 0.45 U.I./ml (0.3-0.7) 03/11/21 04:40 ABG pH 7.481 (7.320-7.450) H 03/11/21 02:12 POC ABG pCO2 27.3 mmHg (32.0-48.0) L 03/11/21 02:12 ABG pCO2 39.5 mm Hg 03/07/21 Unknown POC ABG pO2 180.2 mmHg (83-108) H 03/11/21 02:12 ABG pO2 62.6 mm Hg (80.0-90.0) L 03/07/21 Unknown POC ABG HCO3 19.9 03/11/21 02:12 ABG HCO3 20.7 mmol/L (20.0-26.0) 03/07/21 Unknown ABG O2 Saturation 99.4 (0-100) 03/11/21 02:12 ABG O2 Content 15.1 (0.0-44) 03/07/21 Unknown POC ABG Base Excess -2.5 03/11/21 02:12 ABG Base Excess -4.7 mmol/L (-2.0-3.0) L 03/07/21 Unknown ABG Hemoglobin 11.2 (12.0-17.5) L 03/11/21 02:12 ABG Oxyhemoglobin 99.1 (94-98) H 03/11/21 02:12 ABG Carboxyhemoglobin 1.4 % (0.0-5.0) 03/07/21 Unknown ABG Methemoglobin 0.1 (0.0-1.5) 03/11/21 02:12 ABG Sodium 140.8 mmol/L (136.0-145.0) 03/10/21 03:29 ABG Potassium 4.3 mmol/L (3.40-4.50) 03/11/21 02:12 ABG Chloride 111.0 mmol/L (98-107) H 03/11/21 02:12 ABG Glucose 311 mg/dL (65-95) H 03/11/21 02:12 Oxyhemoglobin 87.3 % (95.0-99.0) L 03/07/21 Unknown Carboxyhemoglobin 0.2 (0.5-1.5) L 03/11/21 02:12 FiO2 100 % 03/07/21 Unknown FiO2 % 75.0 03/11/21 02:12 Sodium 142 mmol/L (137-145) 03/11/21 04:40 Potassium 4.1 mmol/L (3.6-5.0) 03/11/21 04:40 Chloride 108.6 mmol/L (98-107) H 03/11/21 04:40 Carbon Dioxide 21 mmol/L (22-30) L 03/11/21 04:40 Anion Gap 17 mmol/L 03/11/21 04:40 BUN 23 mg/dL (7-17) H 03/11/21 04:40 Creatinine 0.6 mg/dL (0.6-1.2) 03/11/21 04:40 Estimated GFR > 60 ml/min 03/11/21 04:40 BUN/Creatinine Ratio 38 % 03/11/21 04:40 Glucose 276 mg/dL (65-100) H 03/11/21 04:40 POC Glucose 260 mg/dL (70-105) H 03/11/21 04:55 Lactic Acid 1.90 mmol/L (0.7-2.0) 03/10/21 01:12 Calcium 8.0 mg/dL (8.4-10.2) L 03/11/21 04:40 Ferritin 148.8 ng/mL (10.0-200.0) 03/07/21 20:31 Total Bilirubin 0.30 mg/dL (0.1-1.2) 03/11/21 04:40 AST 19 units/L (5-40) 03/11/21 04:40 ALT 12 units/L (7-56) 03/11/21 04:40 Alkaline Phosphatase 107 units/L (35-129) 03/11/21 04:40 Lactate Dehydrogenase 1259 units/L (91-180) H 03/07/21 20:31 Troponin T 0.085 ng/mL (0.00-0.029) H 03/07/21 20:31 C-Reactive Protein 25.50 mg/dL (0.00-1.30) H 03/07/21 20:31 Total Protein 6.1 g/dL (6.3-8.2) L 03/11/21 04:40 Albumin 3.2 g/dL (3.9-5) L 03/11/21 04:40 Albumin/Globulin Ratio 1.1 % 03/11/21 04:40 Triglycerides 213 mg/dL (2-149) H 03/07/21 20:31 Cholesterol 141 mg/dL (50-199) 03/07/21 20:31 LDL Cholesterol Direct 72 mg/dL (50-130) 03/07/21 20:31 HDL Cholesterol 34 mg/dL (40-59) L 03/07/21 20:31 Cholesterol/HDL Ratio 4.14 % 03/07/21 20:31 Procalcitonin 0.54 ng/mL (<0.15) 03/07/21 20:31 HCG, Qual Negative (Negative) 03/07/21 22:48 Arterial Blood Glucose 311 mg/dL (65-95) H 03/11/21 02:12 Arterial Blood Ionized Calcium 4.5 mg/dL (4.6-5.3) L 03/11/21 02:12 Urine Color Yellow (Yellow) 03/08/21 05:51 Urine Turbidity Clear (Clear) 03/08/21 05:51 Urine pH 6.0 (5.0-7.0) 03/08/21 05:51 Ur Specific [place] > 1.050 (1.003-1.030) H 03/08/21 05:51 Urine Protein 100 mg/dl mg/dL (Negative) 03/08/21 05:51 Urine Glucose (UA) Neg mg/dL (Negative) 03/08/21 05:51 Urine Ketones Neg mg/dL (Negative) 03/08/21 05:51 Urine Blood Neg (Negative) 03/08/21 05:51 Urine Nitrite Neg (Negative) 03/08/21 05:51 Urine Bilirubin Neg (Negative) 03/08/21 05:51 Urine Urobilinogen 4.0 mg/dL (<2.0) 03/08/21 05:51 Ur Leukocyte Esterase Neg (Negative) 03/08/21 05:51 Urine WBC (Auto) 5.0 /HPF (0.0-6.0) 03/08/21 05:51 Urine RBC (Auto) 5.0 /HPF (0.0-6.0) 03/08/21 05:51 U Epithel Cells (Auto) < 1.0 /HPF (0-13.0) 03/08/21 05:51 Urine Bacteria (Auto) 1+ /HPF (Negative) 03/08/21 05:51 Urine Mucus Few /HPF 03/08/21 05:51 Coronavirus (PCR) Positive (Negative) A 03/07/21 Unknown Microbiology: Microbiology 03/10/21 04:32 Peripheral/Venous Blood Culture - Preliminary NO GROWTH AFTER 24 HOURS 03/10/21 01:12 Peripheral/Venous Blood Culture - Preliminary NO GROWTH AFTER 24 HOURS 03/07/21 20:31 Peripheral/Venous Blood Culture - Preliminary NO GROWTH AFTER 72 HOURS 03/07/21 20:38 Peripheral/Venous Blood Culture - Preliminary NO GROWTH AFTER 72 HOURS 03/08/21 17:05 Tracheal Aspirate Sputum Culture - Preliminary 03/08/21 Unknown Urine,Catheterized - Straight Catheter Urine Culture - Final NO GROWTH AFTER 48 HOURS Maya/IV: Voiding Method External Female Catheter Active Medications - Current Medications Current Medications: Generic Name Dose Route Start Last Admin Trade Name Freq PRN Reason Stop Dose Admin Acetaminophen 650 mg 03/10/21 00:30 Acetaminophen 650 Mg Rect Supp [place] Q4H PRN Pain, Mild (1-3) Lipase/Protease/Amylase 1 each 03/08/21 13:40 Lipase 10,500/Protease 25,000/Amylase 43,750 (Units) Dr Cap FEEDTUBE PRN PRN For Clogged Feeding Tube Dexamethasone 8 mg 03/08/21 10:00 03/11/21 09:26 Dexamethasone 4 Mg/Ml Vial IV 03/17/21 10:01 8 mg DAILY MARCO ANTONIO Administration Dextrose 50 ml 03/07/21 22:57 Dextrose 50% In Water (25gm) 50 Ml Syringe IV Q30MIN PRN Hypoglycemia Protocol Famotidine 20 mg 03/08/21 10:00 03/11/21 09:26 Famotidine 20 Mg/2 Ml Inj IV 20 mg BID MARCO ANTONIO Administration Fentanyl 50 mcg 03/07/21 21:20 03/07/21 22:13 Fentanyl 100 Mcg/2 Ml Inj IV 50 mcg Q10MIN PRN Administration ANALGESIA Heparin Sodium (Porcine) 8,000 unit 03/08/21 03:37 Heparin 10,000 Units/10 Ml Vial 40 unit/kg (8000 unit) IV Q6H PRN Anti-Xa Assay < 0.1 units/ml Hydrophilic Ointment 1 applic 03/08/21 12:42 Lip Therapy Vaseline TP Q2HR PRN Dry Lips Propofol 1,000 mg in 100 mls @ 3.084 mls/hr 03/07/21 21:00 03/11/21 09:51 Diprivan 10 Mg/Ml IV 5 mcg/kg/min TITR MARCO ANTONIO 3.084 mls/hr Titration Protocol 5 MCG/KG/MIN Fentanyl Citrate 2,000 mcg in 100 mls @ 5.14 mls/hr 03/07/21 22:00 03/11/21 09:50 Fentanyl Drip Premix IV 4 mcg/kg/hr TITR MARCO ANTONIO 20.56 mls/hr Administration Protocol 1 MCG/KG/HR Norepinephrine 4 mg in 250 mls @ 7.5 mls/hr 03/07/21 23:45 03/08/21 08:15 Levophed Drip 4 Mg/Ns 250 Ml IV 0 mcg/min TITR MARCO ANTONIO 0 mls/hr Titration Protocol 2 MCG/MIN Ceftriaxone Sodium 2 gm in 100 mls @ 200 mls/hr 03/08/21 21:30 03/10/21 21:47 Rocephin/Ns 2 Gm/100 Ml IV 03/12/21 21:59 200 mls/hr Q24H MARCO ANTONIO Administration Protocol Azithromycin 500 mg in 250 mls @ 250 mls/hr 03/08/21 22:00 03/10/21 21:47 Zithromax/Ns IV 03/12/21 22:59 250 mls/hr Q24H MARCO ANTONIO Administration Protocol Heparin Sodium/Sodium Chloride 25,000 unit in 500 mls @ 30 mls/hr 03/08/21 04 :00 03/11/21 04:17 Heparin/ 0.45% Nacl-25,000 Unit/500 Ml IV 1,700 units/hr TITR MARCO ANTONIO 34 mls/hr Administration Protocol 1,500 UNITS/HR REMDESIVIR 100 mg/ Sodium 250 mls @ 500 mls/hr 03/09/21 21:00 03/10/21 21:45 Chloride IV 03/12/21 21:29 500 mls/hr Q24HR@2100 MARCO ANTONIO Administration Insulin Glargine 10 units 03/10/21 22:00 03/10/21 21:45 Insulin Glargine 100 Units/Ml SUB-Q 10 units QHS MARCO ANTONIO Administration Insulin Human Lispro 0 unit 03/08/21 12:00 03/11/21 07:13 Insulin Lispro 100 Unit/Ml SUB-Q 3 unit Q6HR MARCO ATNONIO Administration Protocol Magnesium Hydroxide 30 ml 03/07/21 22:57 Magnesium Hydroxide (Mom) Oral Liqd Udc PO Q4H PRN Constipation Metoclopramide HCl 5 mg 03/10/21 14:00 03/11/21 09:28 Metoclopramide 10 Mg/2 Ml Inj IV 03/13/21 08:01 5 mg Q6H MARCO ANTONIO Administration Morphine Sulfate 2 mg 03/07/21 22:57 03/09/21 21:29 Morphine 2 Mg/1 Ml Inj IV 2 mg Q4H PRN Administration Pain, Moderate (4-6) Multi-Ingred Cream/Lotion/Oil/Oint 1 applic 03/08/21 12:42 Mineral Oil/Petrolatum, White Ophth Oint 3.5 Gm OU Q4HR PRN Dry Eye(s) Ondansetron HCl 4 mg 03/07/21 22:57 Ondansetron 4 Mg/2 Ml Inj IV Q8H PRN Nausea And Vomiting Senna/Docusate Sodium 1 tab 03/08/21 22:00 03/11/21 09:26 Sennosides/Docusate Sodium 8.6/50 Mg Tab FEEDTUBE 1 tab BID MARCO ANTONIO Administration Simple Syrup 15 ml 03/08/21 13:40 Simple Syrup 15 Ml FEEDTUBE PRN PRN Hypoglycemia Simple Syrup 30 ml 03/08/21 13:40 Simple Syrup 15 Ml FEEDTUBE PRN PRN Hypoglycemia Sodium Bicarbonate 325 mg 03/08/21 13:40 Sodium Bicarbonate 325 Mg Tab FEEDTUBE PRN PRN For Clogged Feeding Tube Sodium Chloride 10 ml 03/08/21 10:00 03/11/21 09:26 Sodium Chloride 0.9% 10 Ml Flush Syringe IV 10 ml BID MARCO ANTONIO Administration Sodium Chloride 10 ml 03/07/21 22:57 Sodium Chloride 0.9% 10 Ml Flush Syringe IV PRN PRN LINE FLUSH Sodium Chloride 50 ml 03/09/21 21:00 03/10/21 21:45 Sodium Chloride 0.9% 50 Ml Ivpb IV 03/12/21 21:01 50 ml Q24HR@2100 MARCO ANTONIO Administration Tamsulosin HCl 0.4 mg 03/10/21 14:00 03/11/21 09:26 Tamsulosin 0.4 Mg Cap PO 0.4 mg QDAY MARCO ANTONIO Administration Nutrition/Malnutrition Assess - Dietary Evaluation Nutrition/Malnutrition Findings: Nutrition Notes Start: 03/08/21 12:27 Freq: Status: Active Protocol: Document 03/10/21 11:47 CW (Rec: 03/10/21 12:20 CW [email or web address]) Nutrition Notes Initial or Follow up Reassessment Current Diagnosis Sepsis,Respiratory Failure Other Pertinent Diagnosis Pneu, r/o COVID-19, pulmonary embolism Current Diet Vital AF at 50 ml/hr Labs/Tests BG 258 Pertinent Medications Propofol at 12.336 ml/hr ( provides 326 kcal) Sennakopt Decadron Humalog NS at 1L Height 5 ft Weight 102.8 kg [place] Body Weight (kg) 45.45 BMI 44.2 Weight Status Morbidly Obese Subjective/Other Information F/U for TF and vent status. Pt remains on mechanical vent. TF held at this time d/t vomiting per RN. ordered NGT to LIS; If residuals are minimal plan is to restart TF at 10 ml/hr and increase grauduall as tolerated. MD also plans to initiate reglan. Percent of energy/protein needs met: 0%/0% Burn Absent Trauma Absent GI Symptoms Vomiting Current % PO Negligible Minimum of two criteria No Reduced Manufacturing Manager Strength Measurably Reduced (severe) #1 Nutrition Diagnosis Inadequate oral intake Diagnosis Progress(for reassessment Continues documentation) Is patient on ventilator? Yes Is Patient Ambulatory and/or Out of Bed No REE-(Braxton-St. Jeor-confined to bed) 1904.676 Kcal/Kg value to use for calculation 14 Approximate Energy Requirements Using 1439 kcal/Kg Calculation Used for Recommendations Kcal/kg Additional Notes Pro needs up to 2.5g/kg IBW: 114g/day Fluid needs 1ml/kcal Nutrition Intervention Change Diet Order: Restart TF when medically feasible Nutrition Support: Vital AF 1.2 at 50ml/hr with 80ml water flush q4h. Kcal 1,440 Protein (gm) 90 Fluid (mL) 937 Goal #1 TF tolerance Goal #2 TF (at goal rate) to meet at least 75% energy and pro needs Anticipated Discharge Needs: Unable to determine at this time Follow-Up By: 03/13/21 Additional Comments F/U for TF restart and tolerance
--- NOTE | 2021-03-11 13:28 | Progress Note ---
Assessment and Plan Acute hypoxemic respiratory failure on MVS Severe sepsis with shock Bilateral pneumonia COVID-19 infection Obesity Bilateral pulmonary emboli Leukocytosis Thrombocytopenia Elevated serum inflammatory markers to include D-dimer and LDH Metabolic acidosis Lactic acidosis Non-ST elevation myocardial infarction Oropharyngeal dysphagia - reduced drive pressure on PCV to 20 (taregt TV's 400-450 mls) - reduced set rate to 20/min - continue Reglan for high residuals - keep peep at 12 cm H2O - continue care as below otherwise; - continue to wean supplemental oxygen for target O2 sat's > 92% acutely - continue Daily SAT and SBT assessment as tolerated - VAP bundle addressed - continue lung protective strategies - continue bronchodilators with pulmonary hygiene per RT - wean per pulmonary driven protocols otherwise - complete antiinfective's per ID rec's - continue accuchecks with glycemic control per SSI (While critically ill target blood glucose of 140-180 mg/dL; avoid hypoglycemia) - sedation prn for target RASS 0 to -1 - avoid nephrotoxins, renally dose all medications - continue to avoid benzodiazepine's, reduce the possibility of delirium - prn analgesia per CPOT score - Maintenance of sleep-wake cycle, avoid delirium - continue enteral nutritional support at goal rate as tolerated - G.I. & VTE prophylaxis - PT/OT/ROM exercises - continue mobility protocols for pressure ulcer prophylaxis - Monitor hemodynamics closely - continue other care per attending / other consultants - discharge planning ongoing concurrently COVID SPECIFIC INTERVENTIONS - Remdesivir as per ID/Pulmonary developed protocols (ordered) - continue systemic steroids for severe COVID-19 infection empirically 9Decadron 8 mg IV daily) - follow repeat COVID tests results - zinc and vitamin C supplementation - Monitor inflammatory markers per facility protocol - ferritin, Ddimer, CRP - therapeutic anticoagulation per system Protocol based on d-dimer and clinical considerations (full re: DVT / P.E.) - Continue contact and airborne isolation .... Re-evaluate in am & prn CONDITION: CRITICAL PROGNOSIS: GUARDED CODE STATUS: FULL CODE The high probability of a clinically significant, sudden or life-threatening deterioration of the [respiratory, cardiovascular & neurologic] system(s) required my full and direct attention, intervention and personal management. The aggregate critical care time was [35] minutes without overlap. Time includes spent on; [x] Data Review and interpretation [x] Patient assessment and monitoring of vital signs [x] Documentation [x] Medication orders and management Subjective Date of service: 03/11/21 Principal diagnosis: Ac. hypoxemic resp. failure; Septic Shock; COVID-19 Pneumonia; VTE; NSTEMI Interval history: Patient is seen today for: Acute hypoxemic respiratory failure; Severe sepsis with shock; Bilateral pneumonia; COVID-19 infection; Bilateral pulmonary emboli; Thrombocytopenia; NSTEMI Seen and examined at bedside; 24hour events reviewed; nursing and respiratory care staff consulted; no adverse overnight events reported to me; resting in bed; sedated; FiO2 down to 60% with room to wean further; sedated; tolerating tube feeds; No emesis or overt aspiration and no high grade fevers Objective Vital Signs - 12hr 03/11/21 03/11/21 03/11/21 01:30 02:00 02:30 Temperature Pulse Rate 67 71 74 Pulse Rate [ Left Radial] Respiratory 25 H 25 H 25 H Rate Blood Pressure 147/79 161/81 154/78 O2 Sat by Pulse 100 100 100 Oximetry 03/11/21 03/11/21 03/11/21 03:00 03:21 03:28 Temperature 98.6 F Pulse Rate 74 80 Pulse Rate [ Left Radial] Respiratory 25 H Rate Blood Pressure 152/75 168/82 O2 Sat by Pulse 100 100 Oximetry 03/11/21 03/11/21 03/11/21 03:30 04:00 04:30 Temperature Pulse Rate 79 65 86 Pulse Rate [ 58 L Left Radial] Respiratory 25 H 23 23 Rate Blood Pressure 168/82 159/73 172/85 O2 Sat by Pulse 100 97 100 Oximetry 03/11/21 03/11/21 03/11/21 05:00 05:30 06:00 Temperature Pulse Rate 85 82 61 Pulse Rate [ Left Radial] Respiratory 17 25 H 25 H Rate Blood Pressure 181/88 166/76 137/60 O2 Sat by Pulse 100 100 100 Oximetry 03/11/21 03/11/21 03/11/21 06:30 07:00 07:28 Temperature Pulse Rate 53 L 51 L 54 L Pulse Rate [ Left Radial] Respiratory 25 H 25 H Rate Blood Pressure 114/49 112/54 124/68 O2 Sat by Pulse 100 100 100 Oximetry 03/11/21 03/11/21 03/11/21 07:30 07:48 08:00 Temperature 98.3 F Pulse Rate 56 L 56 L Pulse Rate [ Left Radial] Respiratory 25 H 16 25 H Rate Blood Pressure 124/68 129/67 O2 Sat by Pulse 100 94 100 Oximetry 03/11/21 03/11/21 03/11/21 08:30 09:00 09:30 Temperature Pulse Rate 59 L 51 L 56 L Pulse Rate [ Left Radial] Respiratory 25 H 25 H 25 H Rate Blood Pressure 131/73 112/49 124/65 O2 Sat by Pulse 100 100 100 Oximetry 03/11/21 03/11/21 03/11/21 10:00 10:30 11:00 Temperature Pulse Rate 65 67 59 L Pulse Rate [ Left Radial] Respiratory 25 H 25 H 25 H Rate Blood Pressure 143/73 146/71 122/60 O2 Sat by Pulse 100 100 100 Oximetry 03/11/21 03/11/21 03/11/21 11:30 11:42 12:00 Temperature 97.9 F Pulse Rate 57 L 52 L 59 L Pulse Rate [ Left Radial] Respiratory 25 H 25 H Rate Blood Pressure 133/73 133/73 112/57 O2 Sat by Pulse 99 99 100 Oximetry 03/11/21 03/11/21 12:30 13:00 Temperature Pulse Rate 50 L 59 L Pulse Rate [ Left Radial] Respiratory 25 H 25 H Rate Blood Pressure 113/56 128/70 O2 Sat by Pulse 100 100 Oximetry Constitutional: no acute distress, other (middle aged obese female with mildly increased respiratory effort at rest) Eyes: non-icteric ENT: oropharynx moist, other (ETT 24 cm ZULEMA) Neck: supple, no lymphadenopathy, other (large circumference) Effort: mildly labored Ascultation: Bilateral: rales (improving) Percussion: Bilateral: not dull Cardiovascular: regular rate and rhythm Gastrointestinal: normoactive bowel sounds, soft, non-tender, non-distended (protuberant) Integumentary: normal Extremities: no cyanosis, no edema, pink and warm, pulses normal Neurologic: non-focal exam (grossly), pupils equal and round, CN II-XII normal, motor strength normal and, other (sedated) Psychiatric: other (unable to assess re: sedation) CBC and BMP: 03/10/21 04:32 03/11/21 04:40 ABG, PT/INR, D-dimer: ABG ABG pH 7.481 (7.320-7.450) H 03/11/21 02:12 POC ABG pCO2 27.3 mmHg (32.0-48.0) L 03/11/21 02:12 ABG pCO2 39.5 mm Hg 03/07/21 Unknown POC ABG pO2 180.2 mmHg (83-108) H 03/11/21 02:12 ABG pO2 62.6 mm Hg (80.0-90.0) L 03/07/21 Unknown POC ABG HCO3 19.9 03/11/21 02:12 ABG O2 Saturation 99.4 (0-100) 03/11/21 02:12 PT/INR, D-dimer PT 18.5 Sec. (12.2-14.9) H 03/08/21 07:55 INR 1.49 (0.87-1.13) H 03/08/21 07:55 D-Dimer > 02868 ng/mlDDU (0-234) H 03/07/21 21:28 Abnormal lab findings: Abnormal Labs 03/07/21 03/07/21 03/07/21 13:00 20:31 20:31 WBC RBC Hgb Hct RDW Plt Count Seg Neuts % (Manual) Lymphocytes % (Manual) Nucleated RBC % Seg Neutrophils # Man Lymphocytes # (Manual) Monocytes # (Manual) PT INR APTT D-Dimer > 91156 H Heparin Anti-Xa Level ABG pH POC ABG pCO2 POC ABG pO2 ABG pO2 ABG O2 Saturation ABG Base Excess ABG Hemoglobin ABG Oxyhemoglobin ABG Potassium ABG Chloride ABG Glucose Oxyhemoglobin Carboxyhemoglobin Sodium 133 L Chloride 94.6 L Carbon Dioxide 17 L BUN 22 H Glucose 309 H POC Glucose Lactic Acid 5.10 H* Calcium Lactate Dehydrogenase Troponin T 0.085 H C-Reactive Protein Total Protein Albumin 3.5 L Triglycerides 213 H HDL Cholesterol 34 L Arterial Blood Glucose Arterial Blood Ionized Calcium Ur Specific [place] Coronavirus (PCR) 03/07/21 03/07/21 03/07/21 20:31 21:04 21:28 WBC 31.6 H RBC Hgb Hct RDW 15.3 H Plt Count Seg Neuts % (Manual) 73.0 H Lymphocytes % (Manual) 11.5 L Nucleated RBC % 7.0 H Seg Neutrophils # Man 23.1 H Lymphocytes # (Manual) Monocytes # (Manual) 1.7 H PT INR APTT D-Dimer > 53031 H Heparin Anti-Xa Level ABG pH POC ABG pCO2 POC ABG pO2 ABG pO2 ABG O2 Saturation ABG Base Excess ABG Hemoglobin ABG Oxyhemoglobin ABG Potassium ABG Chloride ABG Glucose Oxyhemoglobin Carboxyhemoglobin Sodium Chloride Carbon Dioxide BUN Glucose 301 H POC Glucose Lactic Acid Calcium Lactate Dehydrogenase 1259 H Troponin T C-Reactive Protein 25.50 H Total Protein Albumin Triglycerides HDL Cholesterol Arterial Blood Glucose Arterial Blood Ionized Calcium Ur Specific [place] Coronavirus (PCR) 03/07/21 03/07/21 03/07/21 21:28 22:48 Unknown WBC RBC Hgb Hct RDW Plt Count Seg Neuts % (Manual) Lymphocytes % (Manual) Nucleated RBC % Seg Neutrophils # Man Lymphocytes # (Manual) Monocytes # (Manual) PT INR APTT D-Dimer Heparin Anti-Xa Level ABG pH POC ABG pCO2 POC ABG pO2 ABG pO2 ABG O2 Saturation ABG Base Excess ABG Hemoglobin ABG Oxyhemoglobin ABG Potassium ABG Chloride ABG Glucose Oxyhemoglobin Carboxyhemoglobin Sodium Chloride Carbon Dioxide BUN Glucose POC Glucose Lactic Acid 6.00 H* 3.40 H* Calcium Lactate Dehydrogenase Troponin T C-Reactive Protein Total Protein Albumin Triglycerides HDL Cholesterol Arterial Blood Glucose Arterial Blood Ionized Calcium Ur Specific [place] Coronavirus (PCR) Positive A 03/07/21 03/08/21 03/08/21 Unknown 05:51 06:18 WBC 27.5 H RBC Hgb Hct RDW Plt Count 108 L Seg Neuts % (Manual) 85.0 H Lymphocytes % (Manual) 1.0 L Nucleated RBC % 7.0 H Seg Neutrophils # Man 23.4 H Lymphocytes # (Manual) 0.3 L Monocytes # (Manual) PT INR APTT D-Dimer Heparin Anti-Xa Level ABG pH 7.338 L POC ABG pCO2 POC ABG pO2 ABG pO2 62.6 L ABG O2 Saturation 89.1 L ABG Base Excess -4.7 L ABG Hemoglobin ABG Oxyhemoglobin ABG Potassium ABG Chloride ABG Glucose Oxyhemoglobin 87.3 L Carboxyhemoglobin Sodium Chloride Carbon Dioxide BUN Glucose POC Glucose Lactic Acid Calcium Lactate Dehydrogenase Troponin T C-Reactive Protein Total Protein Albumin Triglycerides HDL Cholesterol Arterial Blood Glucose Arterial Blood Ionized Calcium Ur Specific [place] > 1.050 H Coronavirus (PCR) 03/08/21 03/08/21 03/08/21 06:18 06:18 07:29 WBC RBC Hgb Hct RDW Plt Count Seg Neuts % (Manual) Lymphocytes % (Manual) Nucleated RBC % Seg Neutrophils # Man Lymphocytes # (Manual) Monocytes # (Manual) PT 20.3 H INR 1.69 H APTT D-Dimer Heparin Anti-Xa Level ABG pH POC ABG pCO2 POC ABG pO2 ABG pO2 ABG O2 Saturation ABG Base Excess ABG Hemoglobin ABG Oxyhemoglobin ABG Potassium ABG Chloride ABG Glucose Oxyhemoglobin Carboxyhemoglobin Sodium Chloride Carbon Dioxide BUN 21 H Glucose 188 H POC Glucose 192 H Lactic Acid Calcium 6.8 L D Lactate Dehydrogenase Troponin T C-Reactive Protein Total Protein Albumin Triglycerides HDL Cholesterol Arterial Blood Glucose Arterial Blood Ionized Calcium Ur Specific [place] Coronavirus (PCR) 03/08/21 03/08/21 03/08/21 07:55 08:06 11:35 WBC RBC Hgb Hct RDW Plt Count Seg Neuts % (Manual) Lymphocytes % (Manual) Nucleated RBC % Seg Neutrophils # Man Lymphocytes # (Manual) Monocytes # (Manual) PT 18.5 H INR 1.49 H APTT 113.5 H* D-Dimer Heparin Anti-Xa Level ABG pH 7.311 L POC ABG pCO2 POC ABG pO2 ABG pO2 ABG O2 Saturation ABG Base Excess ABG Hemoglobin 11.8 L ABG Oxyhemoglobin ABG Potassium ABG Chloride 111.0 H ABG Glucose 176 H Oxyhemoglobin Carboxyhemoglobin 0.4 L Sodium Chloride Carbon Dioxide BUN Glucose POC Glucose 142 H Lactic Acid Calcium Lactate Dehydrogenase Troponin T C-Reactive Protein Total Protein Albumin Triglycerides HDL Cholesterol Arterial Blood Glucose 176 H Arterial Blood Ionized Calcium 4.1 L Ur Specific [place] Coronavirus (PCR) 03/08/21 03/08/21 03/08/21 13:00 16:59 21:00 WBC RBC Hgb Hct RDW Plt Count Seg Neuts % (Manual) Lymphocytes % (Manual) Nucleated RBC % Seg Neutrophils # Man Lymphocytes # (Manual) Monocytes # (Manual) PT INR APTT D-Dimer Heparin Anti-Xa Level 0.22 L ABG pH POC ABG pCO2 30.1 L POC ABG pO2 74.9 L ABG pO2 ABG O2 Saturation ABG Base Excess ABG Hemoglobin 10.0 L ABG Oxyhemoglobin 93.8 L ABG Potassium ABG Chloride 113.0 H ABG Glucose 250 H Oxyhemoglobin Carboxyhemoglobin 0.3 L Sodium Chloride Carbon Dioxide BUN Glucose POC Glucose 196 H Lactic Acid Calcium Lactate Dehydrogenase Troponin T C-Reactive Protein Total Protein Albumin Triglycerides HDL Cholesterol Arterial Blood Glucose 250 H Arterial Blood Ionized Calcium 4.0 L Ur Specific [place] Coronavirus (PCR) 03/08/21 03/08/21 03/09/21 21:19 21:30 03:14 WBC RBC Hgb Hct RDW Plt Count Seg Neuts % (Manual) Lymphocytes % (Manual) Nucleated RBC % Seg Neutrophils # Man Lymphocytes # (Manual) Monocytes # (Manual) PT INR APTT D-Dimer Heparin Anti-Xa Level 0.16 L ABG pH POC ABG pCO2 31.0 L POC ABG pO2 80.4 L ABG pO2 ABG O2 Saturation ABG Base Excess ABG Hemoglobin 9.4 L ABG Oxyhemoglobin ABG Potassium ABG Chloride 114.0 H ABG Glucose 249 H Oxyhemoglobin Carboxyhemoglobin 0.3 L Sodium Chloride Carbon Dioxide BUN Glucose POC Glucose 250 H Lactic Acid Calcium Lactate Dehydrogenase Troponin T C-Reactive Protein Total Protein Albumin Triglycerides HDL Cholesterol Arterial Blood Glucose 249 H Arterial Blood Ionized Calcium 4.1 L Ur Specific [place] Coronavirus (PCR) 03/09/21 03/09/21 03/09/21 05:26 06:31 11:25 WBC RBC Hgb Hct RDW Plt Count Seg Neuts % (Manual) Lymphocytes % (Manual) Nucleated RBC % Seg Neutrophils # Man Lymphocytes # (Manual) Monocytes # (Manual) PT INR APTT D-Dimer Heparin Anti-Xa Level ABG pH POC ABG pCO2 POC ABG pO2 ABG pO2 ABG O2 Saturation ABG Base Excess ABG Hemoglobin ABG Oxyhemoglobin ABG Potassium ABG Chloride ABG Glucose Oxyhemoglobin Carboxyhemoglobin Sodium Chloride 110.6 H Carbon Dioxide 20 L BUN 22 H Glucose 244 H POC Glucose 217 H 235 H Lactic Acid Calcium 6.7 L Lactate Dehydrogenase Troponin T C-Reactive Protein Total Protein 5.6 L D Albumin 2.5 L Triglycerides HDL Cholesterol Arterial Blood Glucose Arterial Blood Ionized Calcium Ur Specific [place] Coronavirus (PCR) 03/09/21 03/09/21 03/09/21 12:10 17:29 23:13 WBC 24.1 H RBC 3.29 L Hgb 9.3 L Hct 28.7 L RDW 15.5 H Plt Count Seg Neuts % (Manual) 84.0 H Lymphocytes % (Manual) 1.0 L Nucleated RBC % 3.0 H Seg Neutrophils # Man 20.2 H Lymphocytes # (Manual) 0.2 L Monocytes # (Manual) PT INR APTT D-Dimer Heparin Anti-Xa Level ABG pH POC ABG pCO2 POC ABG pO2 ABG pO2 ABG O2 Saturation ABG Base Excess ABG Hemoglobin ABG Oxyhemoglobin ABG Potassium ABG Chloride ABG Glucose Oxyhemoglobin Carboxyhemoglobin Sodium Chloride Carbon Dioxide BUN Glucose POC Glucose 279 H 284 H Lactic Acid Calcium Lactate Dehydrogenase Troponin T C-Reactive Protein Total Protein Albumin Triglycerides HDL Cholesterol Arterial Blood Glucose Arterial Blood Ionized Calcium Ur Specific [place] Coronavirus (PCR) 03/10/21 03/10/21 03/10/21 01:12 03:29 04:32 WBC 22.6 H 21.5 H RBC 3.31 L 3.33 L Hgb 9.3 L 9.4 L Hct 28.9 L 28.9 L RDW 15.3 H Plt Count Seg Neuts % (Manual) 89.0 H Lymphocytes % (Manual) 6.0 L Nucleated RBC % Seg Neutrophils # Man 20.1 H Lymphocytes # (Manual) Monocytes # (Manual) 1.1 H PT INR APTT D-Dimer Heparin Anti-Xa Level ABG pH POC ABG pCO2 26.7 L POC ABG pO2 148.7 H ABG pO2 ABG O2 Saturation ABG Base Excess ABG Hemoglobin 9.5 L ABG Oxyhemoglobin 98.3 H ABG Potassium 4.7 H ABG Chloride 114.0 H ABG Glucose 263 H Oxyhemoglobin Carboxyhemoglobin 0.3 L Sodium Chloride Carbon Dioxide BUN Glucose POC Glucose Lactic Acid Calcium Lactate Dehydrogenase Troponin T C-Reactive Protein Total Protein Albumin Triglycerides HDL Cholesterol Arterial Blood Glucose 263 H Arterial Blood Ionized Calcium 4.4 L Ur Specific [place] Coronavirus (PCR) 03/10/21 03/10/21 03/10/21 04:32 04:32 05:26 WBC RBC Hgb Hct RDW Plt Count Seg Neuts % (Manual) Lymphocytes % (Manual) Nucleated RBC % Seg Neutrophils # Man Lymphocytes # (Manual) Monocytes # (Manual) PT INR APTT D-Dimer Heparin Anti-Xa Level ABG pH POC ABG pCO2 POC ABG pO2 ABG pO2 ABG O2 Saturation ABG Base Excess ABG Hemoglobin ABG Oxyhemoglobin ABG Potassium ABG Chloride ABG Glucose Oxyhemoglobin Carboxyhemoglobin Sodium Chloride 112.2 H 111.0 H Carbon Dioxide 21 L 21 L BUN 24 H 25 H Glucose 262 H 258 H POC Glucose 246 H Lactic Acid Calcium 7.5 L 7.3 L Lactate Dehydrogenase Troponin T C-Reactive Protein Total Protein 5.8 L Albumin 2.8 L Triglycerides HDL Cholesterol Arterial Blood Glucose Arterial Blood Ionized Calcium Ur Specific [place] Coronavirus (PCR) 03/10/21 03/10/21 03/10/21 11:50 17:18 21:39 WBC RBC Hgb Hct RDW Plt Count Seg Neuts % (Manual) Lymphocytes % (Manual) Nucleated RBC % Seg Neutrophils # Man Lymphocytes # (Manual) Monocytes # (Manual) PT INR APTT D-Dimer Heparin Anti-Xa Level ABG pH POC ABG pCO2 POC ABG pO2 ABG pO2 ABG O2 Saturation ABG Base Excess ABG Hemoglobin ABG Oxyhemoglobin ABG Potassium ABG Chloride ABG Glucose Oxyhemoglobin Carboxyhemoglobin Sodium Chloride Carbon Dioxide BUN Glucose POC Glucose 234 H 248 H 242 H Lactic Acid Calcium Lactate Dehydrogenase Troponin T C-Reactive Protein Total Protein Albumin Triglycerides HDL Cholesterol Arterial Blood Glucose Arterial Blood Ionized Calcium Ur Specific [place] Coronavirus (PCR) 03/10/21 03/11/21 03/11/21 22:39 02:12 04:40 WBC RBC Hgb Hct RDW Plt Count Seg Neuts % (Manual) Lymphocytes % (Manual) Nucleated RBC % Seg Neutrophils # Man Lymphocytes # (Manual) Monocytes # (Manual) PT INR APTT D-Dimer Heparin Anti-Xa Level ABG pH 7.481 H POC ABG pCO2 27.3 L POC ABG pO2 180.2 H ABG pO2 ABG O2 Saturation ABG Base Excess ABG Hemoglobin 11.2 L ABG Oxyhemoglobin 99.1 H ABG Potassium ABG Chloride 111.0 H ABG Glucose 311 H Oxyhemoglobin Carboxyhemoglobin 0.2 L Sodium Chloride 108.6 H Carbon Dioxide 21 L BUN 23 H Glucose 276 H POC Glucose 245 H Lactic Acid Calcium 8.0 L Lactate Dehydrogenase Troponin T C-Reactive Protein Total Protein 6.1 L Albumin 3.2 L Triglycerides HDL Cholesterol Arterial Blood Glucose 311 H Arterial Blood Ionized Calcium 4.5 L Ur Specific [place] Coronavirus (PCR) 03/11/21 04:55 WBC RBC Hgb Hct RDW Plt Count Seg Neuts % (Manual) Lymphocytes % (Manual) Nucleated RBC % Seg Neutrophils # Man Lymphocytes # (Manual) Monocytes # (Manual) PT INR APTT D-Dimer Heparin Anti-Xa Level ABG pH POC ABG pCO2 POC ABG pO2 ABG pO2 ABG O2 Saturation ABG Base Excess ABG Hemoglobin ABG Oxyhemoglobin ABG Potassium ABG Chloride ABG Glucose Oxyhemoglobin Carboxyhemoglobin Sodium Chloride Carbon Dioxide BUN Glucose POC Glucose 260 H Lactic Acid Calcium Lactate Dehydrogenase Troponin T C-Reactive Protein Total Protein Albumin Triglycerides HDL Cholesterol Arterial Blood Glucose Arterial Blood Ionized Calcium Ur Specific [place] Coronavirus (PCR) Chest x-ray: image reviewed (improved infiltrates and resolved hypoventilation) Allied health notes reviewed: nursing
[2021-03-11] MEDS: cefTRIAXone/NS 2 GM/100 ML 2 GM/100 ML BAG IV SCH (21:36)
[2021-03-11] MEDS: INSULIN GLARGINE 100 UNITS/ML SUB-Q SCH (22:04)
[2021-03-11] MEDS: REMDESIVIR 100 MG in SODIUM CHLORIDE 0.9% 250ML 250 ML IV SCH (22:23)
[2021-03-11] MEDS: SODIUM CHLORIDE 0.9% 50 ML IVPB IV SCH (23:09)
[2021-03-11] MEDS: AZITHROMYCIN/NS 500 MG/250 ML 500 MG/250 ML BAG IV SCH (23:39)
[2021-03-12] MEDS: METOCLOPRAMIDE 10 MG/2 ML INJ IV SCH ×4 (05:13→20:51)
[2021-03-12 06:05] LABS: Hematocrit 31.9 % (30.3-42.9); Hemoglobin 10.2 gm/dl (10.1-14.3); Mean Corpuscular HGB Conc 32 % (30-34); Mean Corpuscular Volume 87 fl (79-97); Platelet Count 325 K/mm3 (140-440); Red Blood Count 3.66 M/mm3 (3.65-5.03); Red Cell Distribution Width 15.2 % (13.2-15.2)
[2021-03-12] MEDS: INSULIN LISPRO 100 UNIT/ML SUB-Q SCH ×4 (06:14→19:28)
[2021-03-12 06:28] LABS: Blood Urea Nitrogen 17 mg/dL (7-17); Calcium 8.1 mg/dL (8.4-10.2); Hemolysis Index 4
[2021-03-12 06:35] LABS: BUN/Creatinine Ratio 34
--- NOTE | 2021-03-12 06:40 | XRay Report ---
CHEST 1 VIEW, 03/12/2021 532 AM CLINICAL INFORMATION/INDICATION: Respiratory failure COMPARISON: Chest radiograph, 03/11/2021 at 4:29 AM FINDINGS: SUPPORT DEVICES: The esophagogastric tube has been advanced now with distal tip overlying the expecte d position of the mid stomach. Endotracheal tube and right-sided central line remain in stable positi on. HEART: The cardiac silhouette is normal in size. LUNGS/PLEURA: There are diffuse faint bilateral pulmonary opacities appearing slightly more prominent than on the previous study. No pneumothorax is visualized. ADDITIONAL FINDINGS: No additional acute findings. IMPRESSION: 1. Interval advancement of the esophagogastric tube with tip overlying the expected position of the m id stomach. 2. Faint bilateral pulmonary opacities slightly increased from the previous study. Signer Name: Edwina Morin MD Signed: 03/12/2021 6:36 AM Workstation Name: [id number]
--- NOTE | 2021-03-12 06:43 | XRay Report ---
ABDOMEN 1 VIEW, 03/12/2021 INDICATION / CLINICAL INFORMATION: Ileus COMPARISON: Abdominal radiograph, 03/10/2021 FINDINGS: TUBES / LINES: Esophagogastric tube has been advanced now with tip overlying the expected position of the mid stomach. BOWEL GAS PATTERN: The bowel gas pattern appears nonobstructive. ADDITIONAL FINDINGS: The 2 disc shaped radiodensities again overlie the right abdomen in the region o f the hepatic flexure and have not significantly changed. IMPRESSION: 1. The 2 disc shaped radiodensities overlie the right abdomen. Ingested foreign bodies would be a con sideration. Signer Name: Edwina Morin MD Signed: 03/12/2021 6:39 AM Workstation Name: [id number]
[2021-03-12] MEDS ORDERED: FUROSEMIDE 40 MG/4 ML INJ IV ONE (08:12)
--- NOTE | 2021-03-12 09:29 | Progress Note ---
Assessment and Plan Assessment and plan: 45-year-old female with no significant past medical history Presenting to the emergency room today complaining of cough, shortness of breath and diarrhea for about 3 days. Patient was found to be in respiratory distress upon arrival in the emergency room. Initial oxygen saturation was said to be in the 50s and patient was subsequently placed on a nonrebreather with with improvement of oxygen saturation to the 70s. Patient was subsequently intubated in the emergency room. Most of the history was gotten from the emergency room staff as patient was already intubated. Family members were also not available. Review of patient's record indicates she has not received vaccination against the COVID-19. Work-up in the emergency room today reveals bilateral pulmonary infiltrate on the chest x-ray. Labs reveals significant leukocytosis of 31,000, hyperglycemia with blood glucose of 301, D-dimer was also significantly elevated and greater than 10,000. CT angiogram of the chest reveals multiple peripheral bilateral lower lobe pulmonary emboli. Patient became hypotensive and was given IV fluid and started on pressors in the ER. Patient has been admitted for a pneumonia with septic shock, pulmonary emboli and will also rule out COVID-19 infection. 03/08: New issues: Thrombocytosis question if this is secondary to HIT. We will send out HIT panel. Monitor platelets. Continue heparin drip at this time. Await pulmonary and ID input. 03/09: Patient noted to have Covid positive pneumonia ID input is appreciated patient on dexamethasone for complete 10 days of therapy now started on remdesi vir due to hypoxia also to complete 5 days therapy and Actemra a one-time. We will continue to monitor -Obtain q48-72h inflammatory markers - ferritin, Ddimer, CRP, LDH -Continue ceftriaxone 2 gm IV qday and azithromycin 500 mg PO qday for 5 days given elevated procal -Anticoagulation per hospital protocol -Proning as able I also requested a stat CBC to further evaluate thrombocytosis that was noted yesterday. I called maría elena, Serafin David to update and got voicemail left a message. I also called James Hernandez but his phone is unable to accept messages at this time. 03/10: Possible ileus versus bowel obstruction. Will obtain KUB. Continue to hold tube feeds at this time. We will also obtain GI consult if no resolution. Also patient noted to have urinary retention we will proceed with placing a Maya catheter. She does follow commands some when off sedation but gets easily agitated. Continue ICU management at this point. 03/11: Blood sugar still elevated adjusted nighttime insulin for better coverage. KUB concerning for radiopaque object possible tablet. Was not present on 03 08. We will repeat a KUB in a.m. to see if resolution versus ileus. Continue current management for COVID-19. Continue heparin drip for noted pulmonary embolism. Platelets actually improved despite being on heparin doubt HIT. Patient still requires critical care monitoring. Altered mental status still present. 03/12: Worsening leukocytosis this could be secondary to steroids. We will give Lasix today in addition to empiric vitamins. Chest x-ray shows worsening opacities will monitor closely. Continue full mechanical ventilation and res traints for safety. (1) Pneumonia Current Visit: Yes Status: Acute Plan to address problem: Patient commenced on empiric IV antibiotics. We will await culture results. (2) Hyperglycemia Current Visit: Yes Status: Acute Plan to address problem: Patient has no known history of diabetes mellitus. Will monitor blood glucose and also check hemoglobin A1c. (3) Respiratory failure with hypoxia Current Visit: Yes Status: Acute Plan to address problem: Possibly secondary to the pneumonia. Patient currently intubated. Consult placed to barrel rifler broach for further evaluation. (4) Septic shock Current Visit: Yes Status: Acute Plan to address problem: Secondary to the pneumonia. Patient has been started on empiric IV antibiotics ,IV fluid and pressors. Will monitor labs closely. (5) 2019 novel coronavirus infection-confirmed Current Visit: Yes Status: Acute Plan to address problem: We await COVID-[address] patient on isolation precautions. We will commence patient on IV steroid and also place consult to infectious disease . (6) Pulmonary embolism Current Visit: Yes Status: Acute Plan to address problem: Patient started on anticoagulation with heparin drip. (7) acute metabolic encephalopathy (8)DVT prophylaxis Current Visit: Yes Status: Acute Plan to address problem: Patient currently on anticoagulation. (9) Full code status Current Visit: Yes Status: Acute Plan to address problem: Patient is a full code. Plan discussed at bedside with nursing staff The high probability of a clinically significant, sudden or life threatening deterioration of the [pulmonary] system(s) required my full and direct attention , intervention and personal management. The aggregate critical care time was [35] minutes. This time is in addition to time spent performing reported procedures but includes the following: [X] Data Review and interpretation [X] Patient assessment and monitoring of vital signs [X] Documentation [X] Medication orders and management History Interval history: Patient seen and examined sedated remains on full ventilatory support, no clinical change Hospitalist Physical - Physical exam Narrative exam: VITAL SIGNS: Reviewed. GENERAL: The patient appears normally developed, obese, on full mechanical support sedated vital signs as documented. HEAD: No signs of head trauma. EYES: Pupils are equal. . EARS: Able to examine due to sedation MOUTH: ET tube in place NECK: No adenopathy, no JVD. CHEST: Chest with diminished breath sounds bilaterally. No wheezes, rales, or rhonchi. CARDIAC: Regular rate and rhythm. S1 and S2, without murmurs, gallops, or rubs. VASCULAR: No Edema. Peripheral pulses normal and equal in all extremities. ABDOMEN: Soft, non tender and non distended. No rebound or guarding, and no masses palpated. Bowel Sounds normal. MUSCULOSKELETAL: Good range of motion of all major joints. Extremities without clubbing, cyanosis or edema. NEUROLOGIC EXAM: Sedated PSYCHIATRIC: Sedated SKIN: detail exam as documented in skin assessment - Constitutional Vitals: Temp Pulse Resp BP Pulse Ox 99.0 F 71 20 131/66 100 03/12/21 07:00 03/12/21 07:31 03/12/21 06:00 03/12/21 07:31 03/12/21 07:31 General appearance: Present: well-nourished, obese, other (Intubated and sedated) HEART Score - HEART Score Troponin: Troponin T 0.085 ng/mL (0.00-0.029) H 03/07/21 20:31 Results - Labs CBC & Chem 7: 03/12/21 05:52 03/12/21 05:52 Labs: Laboratory Last Values WBC 41.7 K/mm3 (4.5-11.0) H* 03/12/21 05:52 RBC 3.66 M/mm3 (3.65-5.03) 03/12/21 05:52 Hgb 10.2 gm/dl (10.1-14.3) 03/12/21 05:52 Hct 31.9 % (30.3-42.9) 03/12/21 05:52 MCV 87 fl (79-97) 03/12/21 05:52 MCH 28 pg (28-32) 03/12/21 05:52 MCHC 32 % (30-34) 03/12/21 05:52 RDW 15.2 % (13.2-15.2) 03/12/21 05:52 Plt Count 325 K/mm3 (140-440) 03/12/21 05:52 Lymph % (Auto) [employer]iltrotor [employer] 03/07/21 21:04 [place] % (Auto) [employer] 03/07/21 21:04 Eos % (Auto) [employer] 03/07/21 21:04 Baso % (Auto) [employer] 03/07/21 21:04 Lymph # (Auto) [employer] 03/07/21 21:04 [place] # (Auto) [employer] 03/07/21 21:04 Eos # (Auto) [employer] 03/07/21 21:04 Baso # (Auto) [employer] 03/07/21 21:04 Add Manual Diff Complete 03/10/21 01:12 Total Counted 100 03/10/21 01:12 Seg Neutrophils % [employer] 03/10/21 01:12 Seg Neuts % (Manual) 89.0 % (40.0-70.0) H 03/10/21 01:12 Band Neutrophils % 11.0 % 03/09/21 12:10 Lymphocytes % (Manual) 6.0 % (13.4-35.0) L 03/10/21 01:12 Monocytes % (Manual) 5.0 % (0.0-7.3) 03/10/21 01:12 Metamyelocytes % 1.0 % 03/09/21 12:10 Myelocytes % 1.0 % 03/09/21 12:10 Nucleated RBC % Not Reportable 03/10/21 01:12 Seg Neutrophils # [employer]rotor [employer] 03/07/21 21:04 Seg Neutrophils # Man 20.1 K/mm3 (1.8-7.7) H 03/10/21 01:12 Band Neutrophils # 0.0 K/mm3 03/10/21 01:12 Lymphocytes # (Manual) 1.4 K/mm3 (1.2-5.4) 03/10/21 01:12 Abs React Lymphs (Man) 0.0 K/mm3 03/10/21 01:12 Monocytes # (Manual) 1.1 K/mm3 (0.0-0.8) H 03/10/21 01:12 Eosinophils # (Manual) 0.0 K/mm3 (0.0-0.4) 03/10/21 01:12 Basophils # (Manual) 0.0 K/mm3 (0.0-0.1) 03/10/21 01:12 Metamyelocytes # 0.0 K/mm3 03/10/21 01:12 Myelocytes # 0.0 K/mm3 03/10/21 01:12 Promyelocytes # 0.0 K/mm3 03/10/21 01:12 Blast Cells # 0.0 K/mm3 03/10/21 01:12 WBC Morphology Not Reportable 03/10/21 01:12 Hypersegmented Neuts Not Reportable 03/10/21 01:12 Hyposegmented Neuts Not Reportable 03/10/21 01:12 Hypogranular Neuts Not Reportable 03/10/21 01:12 Smudge Cells Not Reportable 03/10/21 01:12 Toxic Granulation Not Reportable 03/10/21 01:12 Toxic Vacuolation Not Reportable 03/10/21 01:12 Dohle Bodies Not Reportable 03/10/21 01:12 Pelger-Huet Anomaly Not Reportable 03/10/21 01:12 Jarrett Rods Not Reportable 03/10/21 01:12 Platelet Estimate Not Reportable 03/10/21 01:12 Clumped Platelets Not Reportable 03/10/21 01:12 Plt Clumps, EDTA Not Reportable 03/10/21 01:12 Large Platelets Not Reportable 03/10/21 01:12 Giant Platelets Not Reportable 03/10/21 01:12 Platelet Satelliting Not Reportable 03/10/21 01:12 Plt Morphology Comment Not Reportable 03/10/21 01:12 RBC Morphology Normal 03/10/21 01:12 Dimorphic RBCs Not Reportable 03/10/21 01:12 Polychromasia Not Reportable 03/10/21 01:12 Hypochromasia Not Reportable 03/10/21 01:12 Poikilocytosis Not Reportable 03/10/21 01:12 Anisocytosis Not Reportable 03/10/21 01:12 Microcytosis Not Reportable 03/10/21 01:12 Macrocytosis Not Reportable 03/10/21 01:12 Spherocytes Not Reportable 03/10/21 01:12 Pappenheimer Bodies Not Reportable 03/10/21 01:12 Sickle Cells Not Reportable 03/10/21 01:12 Target Cells Not Reportable 03/10/21 01:12 Tear Drop Cells Not Reportable 03/10/21 01:12 Ovalocytes Not Reportable 03/10/21 01:12 Helmet Cells Not Reportable 03/10/21 01:12 Agustin-Haskins Bodies Not Reportable 03/10/21 01:12 [place] Rings Not Reportable 03/10/21 01:12 [place] Cells Not Reportable 03/10/21 01:12 Bite Cells Not Reportable 03/10/21 01:12 Crenated Cell Not Reportable 03/10/21 01:12 Elliptocytes Not Reportable 03/10/21 01:12 Acanthocytes (Spur) Not Reportable 03/10/21 01:12 Rouleaux Not Reportable 03/10/21 01:12 Hemoglobin C Crystals Not Reportable 03/10/21 01:12 Schistocytes Not Reportable 03/10/21 01:12 Malaria parasites Not Reportable 03/10/21 01:12 Joss Bodies Not Reportable 03/10/21 01:12 Hem Pathologist Commnt No 03/10/21 01:12 PT 18.5 Sec. (12.2-14.9) H 03/08/21 07:55 INR 1.49 (0.87-1.13) H 03/08/21 07:55 APTT 113.5 Sec. (24.2-36.6) H* 03/08/21 07:55 D-Dimer > 24898 ng/mlDDU (0-234) H 03/07/21 21:28 Heparin Anti-Xa Level 0.53 U.I./ml (0.3-0.7) 03/12/21 05:52 ABG pH 7.463 (7.320-7.450) H 03/12/21 04:00 POC ABG pCO2 30.9 mmHg (32.0-48.0) L 03/12/21 04:00 ABG pCO2 39.5 mm Hg 03/07/21 Unknown POC ABG pO2 91.9 mmHg (83-108) 03/12/21 04:00 ABG pO2 62.6 mm Hg (80.0-90.0) L 03/07/21 Unknown POC ABG HCO3 21.6 03/12/21 04:00 ABG HCO3 20.7 mmol/L (20.0-26.0) 03/07/21 Unknown ABG O2 Saturation 97.2 (0-100) 03/12/21 04:00 ABG O2 Content 15.1 (0.0-44) 03/07/21 Unknown POC ABG Base Excess -1.5 03/12/21 04:00 ABG Base Excess -4.7 mmol/L (-2.0-3.0) L 03/07/21 Unknown ABG Hemoglobin 10.7 (12.0-17.5) L 03/12/21 04:00 ABG Oxyhemoglobin 96.6 (94-98) 03/12/21 04:00 ABG Carboxyhemoglobin 1.4 % (0.0-5.0) 03/07/21 Unknown ABG Methemoglobin 0.3 (0.0-1.5) 03/12/21 04:00 ABG Sodium 139.6 mmol/L (136.0-145.0) 03/12/21 04:00 ABG Potassium 4.1 mmol/L (3.40-4.50) 03/12/21 04:00 ABG Chloride 107.0 mmol/L (98-107) 03/12/21 04:00 ABG Glucose 310 mg/dL (65-95) H 03/12/21 04:00 Oxyhemoglobin 87.3 % (95.0-99.0) L 03/07/21 Unknown Carboxyhemoglobin 0.3 (0.5-1.5) L 03/12/21 04:00 FiO2 100 % 03/07/21 Unknown FiO2 % 50.0 03/12/21 04:00 Sodium 142 mmol/L (137-145) 03/12/21 05:52 Potassium 4.1 mmol/L (3.6-5.0) 03/12/21 05:52 Chloride 107.5 mmol/L (98-107) H 03/12/21 05:52 Carbon Dioxide 23 mmol/L (22-30) 03/12/21 05:52 Anion Gap 16 mmol/L 03/12/21 05:52 BUN 17 mg/dL (7-17) 03/12/21 05:52 Creatinine 0.5 mg/dL (0.6-1.2) L 03/12/21 05:52 Estimated GFR > 60 ml/min 03/12/21 05:52 BUN/Creatinine Ratio 34 % 03/12/21 05:52 Glucose 297 mg/dL (65-100) H 03/12/21 05:52 POC Glucose 280 mg/dL (70-105) H 03/11/21 23:17 Lactic Acid 1.90 mmol/L (0.7-2.0) 03/10/21 01:12 Calcium 8.1 mg/dL (8.4-10.2) L 03/12/21 05:52 Ferritin 148.8 ng/mL (10.0-200.0) 03/07/21 20:31 Total Bilirubin 0.30 mg/dL (0.1-1.2) 03/11/21 04:40 AST 19 units/L (5-40) 03/11/21 04:40 ALT 12 units/L (7-56) 03/11/21 04:40 Alkaline Phosphatase 107 units/L (35-129) 03/11/21 04:40 Lactate Dehydrogenase 1259 units/L (91-180) H 03/07/21 20:31 Troponin T 0.085 ng/mL (0.00-0.029) H 03/07/21 20:31 C-Reactive Protein 25.50 mg/dL (0.00-1.30) H 03/07/21 20:31 Total Protein 6.1 g/dL (6.3-8.2) L 03/11/21 04:40 Albumin 3.2 g/dL (3.9-5) L 03/11/21 04:40 Albumin/Globulin Ratio 1.1 % 03/11/21 04:40 Triglycerides 213 mg/dL (2-149) H 03/07/21 20:31 Cholesterol 141 mg/dL (50-199) 03/07/21 20:31 LDL Cholesterol Direct 72 mg/dL (50-130) 03/07/21 20:31 HDL Cholesterol 34 mg/dL (40-59) L 03/07/21 20:31 Cholesterol/HDL Ratio 4.14 % 03/07/21 20:31 Procalcitonin 0.54 ng/mL (<0.15) 03/07/21 20:31 HCG, Qual Negative (Negative) 03/07/21 22:48 Arterial Blood Glucose 310 mg/dL (65-95) H 03/12/21 04:00 Arterial Blood Ionized Calcium 4.6 mg/dL (4.6-5.3) 03/12/21 04:00 Urine Color Yellow (Yellow) 03/08/21 05:51 Urine Turbidity Clear (Clear) 03/08/21 05:51 Urine pH 6.0 (5.0-7.0) 03/08/21 05:51 Ur Specific [place] > 1.050 (1.003-1.030) H 03/08/21 05:51 Urine Protein 100 mg/dl mg/dL (Negative) 03/08/21 05:51 Urine Glucose (UA) Neg mg/dL (Negative) 03/08/21 05:51 Urine Ketones Neg mg/dL (Negative) 03/08/21 05:51 Urine Blood Neg (Negative) 03/08/21 05:51 Urine Nitrite Neg (Negative) 03/08/21 05:51 Urine Bilirubin Neg (Negative) 03/08/21 05:51 Urine Urobilinogen 4.0 mg/dL (<2.0) 03/08/21 05:51 Ur Leukocyte Esterase Neg (Negative) 03/08/21 05:51 Urine WBC (Auto) 5.0 /HPF (0.0-6.0) 03/08/21 05:51 Urine RBC (Auto) 5.0 /HPF (0.0-6.0) 03/08/21 05:51 U Epithel Cells (Auto) < 1.0 /HPF (0-13.0) 03/08/21 05:51 Urine Bacteria (Auto) 1+ /HPF (Negative) 03/08/21 05:51 Urine Mucus Few /HPF 03/08/21 05:51 Coronavirus (PCR) Positive (Negative) A 03/07/21 Unknown Microbiology: Microbiology 03/10/21 04:32 Peripheral/Venous Blood Culture - Preliminary NO GROWTH AFTER 48 HOURS 03/10/21 01:12 Peripheral/Venous Blood Culture - Preliminary NO GROWTH AFTER 48 HOURS 03/07/21 20:31 Peripheral/Venous Blood Culture - Preliminary NO GROWTH AFTER 4 DAYS 03/07/21 20:38 Peripheral/Venous Blood Culture - Preliminary NO GROWTH AFTER 4 DAYS Maya/IV: Voiding Method Indwelling Catheter Active Medications - Current Medications Current Medications: Generic Name Dose Route Start Last Admin Trade Name Freq PRN Reason Stop Dose Admin Acetaminophen 650 mg 03/10/21 00:30 Acetaminophen 650 Mg Rect Supp MA Q4H PRN Pain, Mild (1-3) Lipase/Protease/Amylase 1 each 03/08/21 13:40 Lipase 10,500/Protease 25,000/Amylase 43,750 (Units) Dr Coreas FEEDTUBE PRN PRN For Clogged Feeding Tube Ascorbic Acid 1,000 mg 03/12/21 10:00 Ascorbic Acid 500 Mg Tab PO BID MARCO ANTONIO Cholecalciferol 5,000 unit 03/12/21 10:00 Cholecalciferol (Vit D3) 5,000 Unit Tab PO DAILY MARCO ANTONIO Dexamethasone 8 mg 03/08/21 10:00 03/11/21 09:26 Dexamethasone 4 Mg/Ml Vial IV 03/17/21 10:01 8 mg DAILY MARCO ANTONIO Administration Dextrose 50 ml 03/07/21 22:57 Dextrose 50% In Water (25gm) 50 Ml Syringe IV Q30MIN PRN Hypoglycemia Protocol Famotidine 20 mg 03/08/21 10:00 03/11/21 22:04 Famotidine 20 Mg/2 Ml Inj IV 20 mg BID MARCO ANTONIO Administration Fentanyl 50 mcg 03/07/21 21:20 03/07/21 22:13 Fentanyl 100 Mcg/2 Ml Inj IV 50 mcg Q10MIN PRN Administration ANALGESIA Heparin Sodium (Porcine) 8,000 unit 03/08/21 03:37 Heparin 10,000 Units/10 Ml Vial 40 unit/kg (8000 unit) IV Q6H PRN Anti-Xa Assay < 0.1 units/ml Hydrophilic Ointment 1 applic 03/08/21 12:42 Lip Therapy Vaseline TP Q2HR PRN Dry Lips Propofol 1,000 mg in 100 mls @ 3.084 mls/hr 03/07/21 21:00 03/12/21 06:05 Diprivan 10 Mg/Ml IV 0 mcg/kg/min TITR MARCO ANTONIO 0 mls/hr Titration Protocol 5 MCG/KG/MIN Fentanyl Citrate 2,000 mcg in 100 mls @ 5.14 mls/hr 03/07/21 22:00 03/11/21 20:42 Fentanyl Drip Premix IV 3 mcg/kg/hr TITR MARCO ANTONIO 15.42 mls/hr Administration Protocol 1 MCG/KG/HR Norepinephrine 4 mg in 250 mls @ 7.5 mls/hr 03/07/21 23:45 03/08/21 08:15 Levophed Drip 4 Mg/Ns 250 Ml IV 0 mcg/min TITR MARCO ANTONIO 0 mls/hr Titration Protocol 2 MCG/MIN Ceftriaxone Sodium 2 gm in 100 mls @ 200 mls/hr 03/08/21 21:30 03/11/21 21:36 Rocephin/Ns 2 Gm/100 Ml IV 03/12/21 21:59 200 mls/hr Q24H MACRO ANTONIO Administration Protocol Azithromycin 500 mg in 250 mls @ 250 mls/hr 03/08/21 22:00 03/11/21 23:39 Zithromax/Ns IV 03/12/21 22:59 250 mls/hr Q24H MARCO ANTONIO Administration Protocol Heparin Sodium/Sodium Chloride 25,000 unit in 500 mls @ 30 mls/hr 03/08/21 04:00 03/12/21 06:18 Heparin/ 0.45% Nacl-25,000 Unit/500 Ml IV 1,700 units/hr TITR MARCO ANTONIO 34 mls/hr Titration Protocol 1,500 UNITS/HR REMDESIVIR 100 mg/ Sodium 250 mls @ 500 mls/hr 03/09/21 21:00 03/11/21 22:23 Chloride IV 03/12/21 21:29 500 mls/hr Q24HR@2100 MARCO ANTONIO Administration Insulin Glargine 20 units 03/11/21 22:00 03/11/21 22:04 Insulin Glargine 100 Units/Ml SUB-Q 20 units QHS MARCO ANTONIO Administration Insulin Human Lispro 0 unit 03/08/21 12:00 03/12/21 06:14 Insulin Lispro 100 Unit/Ml SUB-Q 4 unit Q6HR [facility] Administration Protocol Magnesium Hydroxide 30 ml 03/07/21 22:57 Magnesium Hydroxide (Mom) Oral Liqd Udc PO Q4H PRN Constipation Metoclopramide HCl 5 mg 03/10/21 14:00 03/12/21 05:13 Metoclopramide 10 Mg/2 Ml Inj IV 03/13/21 08:01 Not Given Q6H MARCO ANTONIO Morphine Sulfate 2 mg 03/07/21 22:57 03/09/21 21:29 Morphine 2 Mg/1 Ml Inj IV 2 mg Q4H PRN Administration Pain, Moderate (4-6) Multi-Ingred Cream/Lotion/Oil/Oint 1 applic 03/08/21 12:42 Mineral Oil/Petrolatum, White Ophth Oint 3.5 Gm OU Q4HR PRN Dry Eye(s) Ondansetron HCl 4 mg 03/07/21 22:57 Ondansetron 4 Mg/2 Ml Inj IV Q8H PRN Nausea And Vomiting Senna/Docusate Sodium 1 tab 03/08/21 22:00 03/11/21 22:04 Sennosides/Docusate Sodium 8.6/50 Mg Tab FEEDTUBE 1 tab BID MARCO ANTONIO Administration Simple Syrup 15 ml 03/08/21 13:40 Simple Syrup 15 Ml FEEDTUBE PRN PRN Hypoglycemia Simple Syrup 30 ml 03/08/21 13:40 Simple Syrup 15 Ml FEEDTUBE PRN PRN Hypoglycemia Sodium Bicarbonate 325 mg 03/08/21 13:40 Sodium Bicarbonate 325 Mg Tab FEEDTUBE PRN PRN For Clogged Feeding Tube Sodium Chloride 10 ml 03/08/21 10:00 03/11/21 22:05 Sodium Chloride 0.9% 10 Ml Flush Syringe IV 10 ml BID MARCO ANTONIO Administration Sodium Chloride 10 ml 03/07/21 22:57 Sodium Chloride 0.9% 10 Ml Flush Syringe IV PRN PRN LINE FLUSH Sodium Chloride 50 ml 03/09/21 21:00 03/11/21 23:09 Sodium Chloride 0.9% 50 Ml Ivpb IV 03/12/21 21:01 50 ml Q24HR@2100 MARCO ANTONIO Administration Tamsulosin HCl 0.4 mg 03/10/21 14:00 03/11/21 09:26 Tamsulosin 0.4 Mg Cap PO 0.4 mg QDAY MARCO ANTONIO Administration Zinc Sulfate 220 mg 03/12/21 10:00 Zinc Sulfate 220 Mg Cap PO QDAY MARCO ANTONIO Nutrition/Malnutrition Assess - Dietary Evaluation Nutrition/Malnutrition Findings: Nutrition Notes Start: 03/08/21 12:27 Freq: Status: Active Protocol: Document 03/10/21 11:47 CW (Rec: 03/10/21 12:20 CW [email or web address]) Nutrition Notes Initial or Follow up Reassessment Current Diagnosis Sepsis,Respiratory Failure Other Pertinent Diagnosis Pneu, r/o COVID-19, pulmonary embolism Current Diet Vital AF at 50 ml/hr Labs/Tests BG 258 Pertinent Medications Propofol at 12.336 ml/hr ( provides 326 kcal) Sennakopt Decadron Humalog NS at 1L Height 5 ft Weight 102.8 kg [place] Body Weight (kg) 45.45 BMI 44.2 Weight Status Morbidly Obese Subjective/Other Information F/U for TF and vent status. Pt remains on mechanical vent. TF held at this time d/t vomiting per RN. MD ordered NGT to LIS; If residuals are minimal plan is to restart TF at 10 ml/hr and increase grauduall as tolerated. MD also plans to initiate reglan. Percent of energy/protein needs met: 0%/0% Burn Absent Trauma Absent GI Symptoms Vomiting Current % PO Negligible Minimum of two criteria No Reduced Relief Pharmacist Strength Measurably Reduced (severe) #1 Nutrition Diagnosis Inadequate oral intake Diagnosis Progress(for reassessment Continues documentation) Is patient on ventilator? Yes Is Patient Ambulatory and/or Out of Bed No REE-([facility]-confined to bed) 1904.676 Kcal/Kg value to use for calculation 14 Approximate Energy Requirements Using 1439 kcal/Kg Calculation Used for Recommendations Kcal/kg Additional Notes Pro needs up to 2.5g/kg IBW: 114g/day Fluid needs 1ml/kcal Nutrition Intervention Change Diet Order: Restart TF when medically feasible Nutrition Support: Vital AF 1.2 at 50ml/hr with 80ml water flush q4h. Kcal 1,440 Protein (gm) 90 Fluid (mL) 937 Goal #1 TF tolerance Goal #2 TF (at goal rate) to meet at least 75% energy and pro needs Anticipated Discharge Needs: Unable to determine at this time Follow-Up By: 03/13/21 Additional Comments F/U for TF restart and tolerance
[2021-03-12] MEDS: fentaNYL DRIP Premix 2,000 MCG/100 ML BAG IV SCH ×4 (09:40→19:29)
[2021-03-12] MEDS: HEPARIN/ 0.45% NACL DRIP 25,000 UNIT/500 ML BAG IV SCH (09:44)
[2021-03-12] MEDS: ASCORBIC ACID 500 MG TAB PO SCH ×2 (09:45→22:00)
[2021-03-12] MEDS: FAMOTIDINE 20 MG/2 ML INJ IV SCH ×2 (09:45→22:00)
[2021-03-12] MEDS: SENNOSIDES/DOCUSATE SODIUM 8.6/50 MG TAB FEEDTUBE SCH ×2 (09:45→22:00)
[2021-03-12] MEDS: TAMSULOSIN 0.4 MG CAP PO SCH (09:45)
[2021-03-12] MEDS: ZINC SULFATE 220 MG CAP PO SCH (09:46)
[2021-03-12] MEDS: dexAMETHasone 4 MG/ML VIAL IV SCH (09:46)
[2021-03-12] MEDS: CHOLECALCIFEROL (VIT D3) 5,000 UNIT TAB PO SCH (10:40)
--- NOTE | 2021-03-12 13:19 | Progress Note ---
Assessment and Plan Cultures: Blood culture no growth COVID-19 PCR: Positive 03/08/2021 tracheal aspirate: No growth 03/08/2021 urine culture: No growth 03/10/2021 blood culture: No growth A/P: 45-year-old female with no past medical history admitted with COVID-19 pneumonia and bilateral pulmonary emboli. #Severe COVID-19 pneumonia: Patient presented with 3 days of symptoms, chest x- ray with diffuse bilateral infiltrates, admission O2 sats 50% on room air. Inflammatory markers elevated. #Acute hypoxemic respiratory failure: secondary to COVID-19 infection. Currently on the vent. #Bilateral pulmonary emboli: Anticoagulation per primary #Obesity: Associated with worse COVID-19 outcomes. Recs: -continue steroids for 10 days -Complete 5 days of remdesivir -S/P Actemra 03/09/2021 -WBC worsened, remains on Ceftriaxone and Azithromycin -procalcitonin ordered for AM -Obtain q48-72h inflammatory markers - ferritin, Ddimer, CRP, LDH -Anticoagulation for PE per primary team Micki Arellano MD, FACP [facility] ([facility] O: [phone] F: [phone] Subjective Date of service: 03/12/21 Principal diagnosis: Ac. hypoxemic resp. failure; Septic Shock; COVID-19 Pneumonia; VTE; NSTEMI Interval history: No fever. Remains on the vent. WBC went up. Objective - Exam Narrative Exam: Physical Exam (reviewed in chart to minimize risk of transmission) Constitutional: deferred Head, Ears, Nose: deferred Eyes: deferred Neck: deferred Oral: deferred Cardiovascular: deferred Respiratory: deferred GI: deferred Musculoskeletal: deferred Skin: deferred Hem/Lymphatic: deferred Psych: deferred Neurological: deferred - Constitutional Vitals: Vital Signs Temp Pulse Resp BP Pulse Ox 99.0 F 70 20 160/77 98 03/12/21 07:00 03/12/21 11:17 03/12/21 06:00 03/12/21 11:17 03/12/21 11:17 Temperature -Last 24 Hours Temperature 99.0 F Temperature 99.5 F Temperature 99.0 F Temperature 99 F - Labs CBC & Chem 7: 03/12/21 05:52 06/13/21 05:52 Labs: Abnormal lab results 03/11/21 03/11/21 03/11/21 Range/Units 12:35 18:15 23:17 WBC (4.5-11.0) K/mm3 ABG pH (7.320-7.450) POC ABG pCO2 (32.0-48.0) mmHg ABG Hemoglobin (12.0-17.5) ABG Glucose (65-95) mg/dL Carboxyhemoglobin (0.5-1.5) Chloride (98-107) mmol/L Creatinine (0.6-1.2) mg/dL Glucose (65-100) mg/dL POC Glucose 273 H 283 H 280 H (70-105) mg/dL Calcium (8.4-10.2) mg/dL Arterial Blood Glucose (65-95) mg/dL 03/12/21 03/12/21 03/12/21 Range/Units 04:00 05:39 05:52 WBC 41.7 H* (4.5-11.0) K/mm3 ABG pH 7.463 H (7.320-7.450) POC ABG pCO2 30.9 L (32.0-48.0) mmHg ABG Hemoglobin 10.7 L (12.0-17.5) ABG Glucose 310 H (65-95) mg/dL Carboxyhemoglobin 0.3 L (0.5-1.5) Chloride (98-107) mmol/L Creatinine (0.6-1.2) mg/dL Glucose (65-100) mg/dL POC Glucose 278 H (70-105) mg/dL Calcium (8.4-10.2) mg/dL Arterial Blood Glucose 310 H (65-95) mg/dL 03/12/21 03/12/21 Range/Units 05:52 13:02 WBC (4.5-11.0) K/mm3 ABG pH (7.320-7.450) POC ABG pCO2 (32.0-48.0) mmHg ABG Hemoglobin (12.0-17.5) ABG Glucose (65-95) mg/dL Carboxyhemoglobin (0.5-1.5) Chloride 107.5 H (98-107) mmol/L Creatinine 0.5 L (0.6-1.2) mg/dL Glucose 297 H (65-100) mg/dL POC Glucose 345 H (70-105) mg/dL Calcium 8.1 L (8.4-10.2) mg/dL Arterial Blood Glucose (65-95) mg/dL
--- NOTE | 2021-03-12 16:01 | Progress Note ---
Assessment and Plan Acute hypoxemic respiratory failure on MVS Severe sepsis with shock Bilateral pneumonia COVID-19 infection Obesity Bilateral pulmonary emboli Leukocytosis Thrombocytopenia Elevated serum inflammatory markers to include D-dimer and LDH Metabolic acidosis Lactic acidosis Non-ST elevation myocardial infarction Oropharyngeal dysphagia - transition to AC mode in am - reduced set rate to 16/min - continue care as below otherwise; - continue to wean supplemental oxygen for target O2 sat's > 92% acutely - continue Daily SAT and SBT assessment as tolerated - VAP bundle addressed - continue lung protective strategies - continue bronchodilators with pulmonary hygiene per RT - wean per pulmonary driven protocols otherwise - complete antiinfective's per ID rec's - continue accuchecks with glycemic control per SSI (While critically ill target blood glucose of 140-180 mg/dL; avoid hypoglycemia) - sedation prn for target RASS 0 to -1 - avoid nephrotoxins, renally dose all medications - continue to avoid benzodiazepine's, reduce the possibility of delirium - prn analgesia per CPOT score - Maintenance of sleep-wake cycle, avoid delirium - continue enteral nutritional support at goal rate as tolerated - G.I. & VTE prophylaxis - PT/OT/ROM exercises - continue mobility protocols for pressure ulcer prophylaxis - Monitor hemodynamics closely - continue other care per attending / other consultants - discharge planning ongoing concurrently COVID SPECIFIC INTERVENTIONS - Remdesivir as per ID/Pulmonary developed protocols (ordered) - continue systemic steroids for severe COVID-19 infection empirically 9Decadron 8 mg IV daily) - follow repeat COVID tests results - zinc and vitamin C supplementation - Monitor inflammatory markers per facility protocol - ferritin, Ddimer, CRP - therapeutic anticoagulation per system Protocol based on d-dimer and clinical considerations (full re: DVT / P.E.) - Continue contact and airborne isolation .... Re-evaluate in am & prn CONDITION: CRITICAL PROGNOSIS: GUARDED CODE STATUS: FULL CODE The high probability of a clinically significant, sudden or life-threatening deterioration of the [respiratory, cardiovascular & neurologic] system(s) required my full and direct attention, intervention and personal management. The aggregate critical care time was [32] minutes without overlap. Time includes spent on; [x] Data Review and interpretation [x] Patient assessment and monitoring of vital signs [x] Documentation [x] Medication orders and management Subjective Date of service: 03/12/21 Principal diagnosis: Ac. hypoxemic resp. failure; Septic Shock; COVID-19 Pneum onia; VTE; NSTEMI Interval history: Patient is seen today for: Acute hypoxemic respiratory failure; Severe sepsis with shock; Bilateral pneumonia; COVID-19 infection; Bilateral pulmonary emboli; Thrombocytopenia; NSTEMI Seen and examined at bedside; 24hour events reviewed; nursing and respiratory care staff consulted; no adverse overnight events reported to me; resting in bed; sedated; agitated during SAT's; no emesis or overt aspiration; FiO2 reduced but peep increased Objective Vital Signs - 12hr 03/12/21 03/12/21 03/12/21 04:15 04:30 04:45 Temperature Pulse Rate 70 78 68 Respiratory 21 17 20 Rate Blood Pressure 118/67 129/81 121/65 O2 Sat by Pulse 98 98 98 Oximetry 03/12/21 03/12/21 03/12/21 05:00 05:15 05:30 Temperature Pulse Rate 61 69 71 Respiratory 20 20 25 H Rate Blood Pressure 119/61 137/69 156/73 O2 Sat by Pulse 98 100 99 Oximetry 03/12/21 03/12/21 03/12/21 05:45 06:00 07:00 Temperature 99.0 F Pulse Rate 76 67 Respiratory 21 20 Rate Blood Pressure 143/75 134/69 O2 Sat by Pulse 100 99 Oximetry 03/12/21 03/12/21 03/12/21 07:31 11:17 13:21 Temperature 99.0 F Pulse Rate 71 70 Respiratory Rate Blood Pressure 131/66 160/77 O2 Sat by Pulse 100 98 Oximetry 03/12/21 15:20 Temperature Pulse Rate 74 Respiratory Rate Blood Pressure 126/71 O2 Sat by Pulse 99 Oximetry Constitutional: no acute distress, other (middle aged obese female with mildly increased respiratory effort at rest) Eyes: non-icteric ENT: oropharynx moist, other (ETT 24 cm ZULEMA) Neck: supple, no lymphadenopathy, other (large circumference) Effort: mildly labored Ascultation: Bilateral: rales Percussion: Bilateral: not dull Cardiovascular: regular rate and rhythm Gastrointestinal: normoactive bowel sounds, soft, non-tender, non-distended (protuberant) Integumentary: normal Extremities: no cyanosis, no edema, pink and warm, pulses normal Neurologic: non-focal exam (grossly), pupils equal and round, CN II-XII normal, motor strength normal and, other (sedated) Psychiatric: other (unable to assess re: sedation) CBC and BMP: 03/13/21 04:00 03/13/21 04:00 ABG, PT/INR, D-dimer: ABG ABG pH 7.463 (7.320-7.450) H 03/12/21 04:00 POC ABG pCO2 30.9 mmHg (32.0-48.0) L 03/12/21 04:00 ABG pCO2 39.5 mm Hg 03/07/21 Unknown POC ABG pO2 91.9 mmHg (83-108) 03/12/21 04:00 ABG pO2 62.6 mm Hg (80.0-90.0) L 03/07/21 Unknown POC ABG HCO3 21.6 03/12/21 04:00 ABG O2 Saturation 97.2 (0-100) 03/12/21 04:00 PT/INR, D-dimer PT 18.5 Sec. (12.2-14.9) H 03/08/21 07:55 INR 1.49 (0.87-1.13) H 03/08/21 07:55 D-Dimer > 17107 ng/mlDDU (0-234) H 03/07/21 21:28 Abnormal lab findings: Abnormal Labs 03/07/21 03/07/21 03/07/21 13:00 20:31 20:31 WBC RBC Hgb Hct RDW Plt Count Seg Neuts % (Manual) Lymphocytes % (Manual) Nucleated RBC % Seg Neutrophils # Man Lymphocytes # (Manual) Monocytes # (Manual) PT INR APTT D-Dimer > 55799 H Heparin Anti-Xa Level ABG pH POC ABG pCO2 POC ABG pO2 ABG pO2 ABG O2 Saturation ABG Base Excess ABG Hemoglobin ABG Oxyhemoglobin ABG Potassium ABG Chloride ABG Glucose Oxyhemoglobin Carboxyhemoglobin Sodium 133 L Chloride 94.6 L Carbon Dioxide 17 L BUN 22 H Creatinine Glucose 309 H POC Glucose Lactic Acid 5.10 H* Calcium Lactate Dehydrogenase Troponin T 0.085 H C-Reactive Protein Total Protein Albumin 3.5 L Triglycerides 213 H HDL Cholesterol 34 L Arterial Blood Glucose Arterial Blood Ionized Calcium Ur Specific [place] Coronavirus (PCR) 03/07/21 03/07/21 03/07/21 20:31 21:04 21:28 WBC 31.6 H RBC Hgb Hct RDW 15.3 H Plt Count Seg Neuts % (Manual) 73.0 H Lymphocytes % (Manual) 11.5 L Nucleated RBC % 7.0 H Seg Neutrophils # Man 23.1 H Lymphocytes # (Manual) Monocytes # (Manual) 1.7 H PT INR APTT D-Dimer > 04401 H Heparin Anti-Xa Level ABG pH POC ABG pCO2 POC ABG pO2 ABG pO2 ABG O2 Saturation ABG Base Excess ABG Hemoglobin ABG Oxyhemoglobin ABG Potassium ABG Chloride ABG Glucose Oxyhemoglobin Carboxyhemoglobin Sodium Chloride Carbon Dioxide BUN Creatinine Glucose 301 H POC Glucose Lactic Acid Calcium Lactate Dehydrogenase 1259 H Troponin T C-Reactive Protein 25.50 H Total Protein Albumin Triglycerides HDL Cholesterol Arterial Blood Glucose Arterial Blood Ionized Calcium Ur Specific [place] Coronavirus (PCR) 03/07/21 03/07/21 03/07/21 21:28 22:48 Unknown WBC RBC Hgb Hct RDW Plt Count Seg Neuts % (Manual) Lymphocytes % (Manual) Nucleated RBC % Seg Neutrophils # Man Lymphocytes # (Manual) Monocytes # (Manual) PT INR APTT D-Dimer Heparin Anti-Xa Level ABG pH POC ABG pCO2 POC ABG pO2 ABG pO2 ABG O2 Saturation ABG Base Excess ABG Hemoglobin ABG Oxyhemoglobin ABG Potassium ABG Chloride ABG Glucose Oxyhemoglobin Carboxyhemoglobin Sodium Chloride Carbon Dioxide BUN Creatinine Glucose POC Glucose Lactic Acid 6.00 H* 3.40 H* Calcium Lactate Dehydrogenase Troponin T C-Reactive Protein Total Protein Albumin Triglycerides HDL Cholesterol Arterial Blood Glucose Arterial Blood Ionized Calcium Ur Specific [place] Coronavirus (PCR) Positive A 03/07/21 03/08/21 03/08/21 Unknown 05:51 06:18 WBC 27.5 H RBC Hgb Hct RDW Plt Count 108 L Seg Neuts % (Manual) 85.0 H Lymphocytes % (Manual) 1.0 L Nucleated RBC % 7.0 H Seg Neutrophils # Man 23.4 H Lymphocytes # (Manual) 0.3 L Monocytes # (Manual) PT INR APTT D-Dimer Heparin Anti-Xa Level ABG pH 7.338 L POC ABG pCO2 POC ABG pO2 ABG pO2 62.6 L ABG O2 Saturation 89.1 L ABG Base Excess -4.7 L ABG Hemoglobin ABG Oxyhemoglobin ABG Potassium ABG Chloride ABG Glucose Oxyhemoglobin 87.3 L Carboxyhemoglobin Sodium Chloride Carbon Dioxide BUN Creatinine Glucose POC Glucose Lactic Acid Calcium Lactate Dehydrogenase Troponin T C-Reactive Protein Total Protein Albumin Triglycerides HDL Cholesterol Arterial Blood Glucose Arterial Blood Ionized Calcium Ur Specific [place] > 1.050 H Coronavirus (PCR) 03/08/21 03/08/21 03/08/21 06:18 06:18 07:29 WBC RBC Hgb Hct RDW Plt Count Seg Neuts % (Manual) Lymphocytes % (Manual) Nucleated RBC % Seg Neutrophils # Man Lymphocytes # (Manual) Monocytes # (Manual) PT 20.3 H INR 1.69 H APTT D-Dimer Heparin Anti-Xa Level ABG pH POC ABG pCO2 POC ABG pO2 ABG pO2 ABG O2 Saturation ABG Base Excess ABG Hemoglobin ABG Oxyhemoglobin ABG Potassium ABG Chloride ABG Glucose Oxyhemoglobin Carboxyhemoglobin Sodium Chloride Carbon Dioxide BUN 21 H Creatinine Glucose 188 H POC Glucose 192 H Lactic Acid Calcium 6.8 L D Lactate Dehydrogenase Troponin T C-Reactive Protein Total Protein Albumin Triglycerides HDL Cholesterol Arterial Blood Glucose Arterial Blood Ionized Calcium Ur Specific [place] Coronavirus (PCR) 03/08/21 03/08/21 03/08/21 07:55 08:06 11:35 WBC RBC Hgb Hct RDW Plt Count Seg Neuts % (Manual) Lymphocytes % (Manual) Nucleated RBC % Seg Neutrophils # Man Lymphocytes # (Manual) Monocytes # (Manual) PT 18.5 H INR 1.49 H APTT 113.5 H* D-Dimer Heparin Anti-Xa Level ABG pH 7.311 L POC ABG pCO2 POC ABG pO2 ABG pO2 ABG O2 Saturation ABG Base Excess ABG Hemoglobin 11.8 L ABG Oxyhemoglobin ABG Potassium ABG Chloride 111.0 H ABG Glucose 176 H Oxyhemoglobin Carboxyhemoglobin 0.4 L Sodium Chloride Carbon Dioxide BUN Creatinine Glucose POC Glucose 142 H Lactic Acid Calcium Lactate Dehydrogenase Troponin T C-Reactive Protein Total Protein Albumin Triglycerides HDL Cholesterol Arterial Blood Glucose 176 H Arterial Blood Ionized Calcium 4.1 L Ur Specific [place] Coronavirus (PCR) 03/08/21 03/08/21 03/08/21 13:00 16:59 21:00 WBC RBC Hgb Hct RDW Plt Count Seg Neuts % (Manual) Lymphocytes % (Manual) Nucleated RBC % Seg Neutrophils # Man Lymphocytes # (Manual) Monocytes # (Manual) PT INR APTT D-Dimer Heparin Anti-Xa Level 0.22 L ABG pH POC ABG pCO2 30.1 L POC ABG pO2 74.9 L ABG pO2 ABG O2 Saturation ABG Base Excess ABG Hemoglobin 10.0 L ABG Oxyhemoglobin 93.8 L ABG Potassium ABG Chloride 113.0 H ABG Glucose 250 H Oxyhemoglobin Carboxyhemoglobin 0.3 L Sodium Chloride Carbon Dioxide BUN Creatinine Glucose POC Glucose 196 H Lactic Acid Calcium Lactate Dehydrogenase Troponin T C-Reactive Protein Total Protein Albumin Triglycerides HDL Cholesterol Arterial Blood Glucose 250 H Arterial Blood Ionized Calcium 4.0 L Ur Specific [place] Coronavirus (PCR) 03/08/21 03/08/21 03/09/21 21:19 21:30 03:14 WBC RBC Hgb Hct RDW Plt Count Seg Neuts % (Manual) Lymphocytes % (Manual) Nucleated RBC % Seg Neutrophils # Man Lymphocytes # (Manual) Monocytes # (Manual) PT INR APTT D-Dimer Heparin Anti-Xa Level 0.16 L ABG pH POC ABG pCO2 31.0 L POC ABG pO2 80.4 L ABG pO2 ABG O2 Saturation ABG Base Excess ABG Hemoglobin 9.4 L ABG Oxyhemoglobin ABG Potassium ABG Chloride 114.0 H ABG Glucose 249 H Oxyhemoglobin Carboxyhemoglobin 0.3 L Sodium Chloride Carbon Dioxide BUN Creatinine Glucose POC Glucose 250 H Lactic Acid Calcium Lactate Dehydrogenase Troponin T C-Reactive Protein Total Protein Albumin Triglycerides HDL Cholesterol Arterial Blood Glucose 249 H Arterial Blood Ionized Calcium 4.1 L Ur Specific [place] Coronavirus (PCR) 03/09/21 03/09/21 03/09/21 05:26 06:31 11:25 WBC RBC Hgb Hct RDW Plt Count Seg Neuts % (Manual) Lymphocytes % (Manual) Nucleated RBC % Seg Neutrophils # Man Lymphocytes # (Manual) Monocytes # (Manual) PT INR APTT D-Dimer Heparin Anti-Xa Level ABG pH POC ABG pCO2 POC ABG pO2 ABG pO2 ABG O2 Saturation ABG Base Excess ABG Hemoglobin ABG Oxyhemoglobin ABG Potassium ABG Chloride ABG Glucose Oxyhemoglobin Carboxyhemoglobin Sodium Chloride 110.6 H Carbon Dioxide 20 L BUN 22 H Creatinine Glucose 244 H POC Glucose 217 H 235 H Lactic Acid Calcium 6.7 L Lactate Dehydrogenase Troponin T C-Reactive Protein Total Protein 5.6 L D Albumin 2.5 L Triglycerides HDL Cholesterol Arterial Blood Glucose Arterial Blood Ionized Calcium Ur Specific [place] Coronavirus (PCR) 03/09/21 03/09/21 03/09/21 12:10 17:29 23:13 WBC 24.1 H RBC 3.29 L Hgb 9.3 L Hct 28.7 L RDW 15.5 H Plt Count Seg Neuts % (Manual) 84.0 H Lymphocytes % (Manual) 1.0 L Nucleated RBC % 3.0 H Seg Neutrophils # Man 20.2 H Lymphocytes # (Manual) 0.2 L Monocytes # (Manual) PT INR APTT D-Dimer Heparin Anti-Xa Level ABG pH POC ABG pCO2 POC ABG pO2 ABG pO2 ABG O2 Saturation ABG Base Excess ABG Hemoglobin ABG Oxyhemoglobin ABG Potassium ABG Chloride ABG Glucose Oxyhemoglobin Carboxyhemoglobin Sodium Chloride Carbon Dioxide BUN Creatinine Glucose POC Glucose 279 H 284 H Lactic Acid Calcium Lactate Dehydrogenase Troponin T C-Reactive Protein Total Protein Albumin Triglycerides HDL Cholesterol Arterial Blood Glucose Arterial Blood Ionized Calcium Ur Specific [place] Coronavirus (PCR) 03/10/21 03/10/21 03/10/21 01:12 03:29 04:32 WBC 22.6 H 21.5 H RBC 3.31 L 3.33 L Hgb 9.3 L 9.4 L Hct 28.9 L 28.9 L RDW 15.3 H Plt Count Seg Neuts % (Manual) 89.0 H Lymphocytes % (Manual) 6.0 L Nucleated RBC % Seg Neutrophils # Man 20.1 H Lymphocytes # (Manual) Monocytes # (Manual) 1.1 H PT INR APTT D-Dimer Heparin Anti-Xa Level ABG pH POC ABG pCO2 26.7 L POC ABG pO2 148.7 H ABG pO2 ABG O2 Saturation ABG Base Excess ABG Hemoglobin 9.5 L ABG Oxyhemoglobin 98.3 H ABG Potassium 4.7 H ABG Chloride 114.0 H ABG Glucose 263 H Oxyhemoglobin Carboxyhemoglobin 0.3 L Sodium Chloride Carbon Dioxide BUN Creatinine Glucose POC Glucose Lactic Acid Calcium Lactate Dehydrogenase Troponin T C-Reactive Protein Total Protein Albumin Triglycerides HDL Cholesterol Arterial Blood Glucose 263 H Arterial Blood Ionized Calcium 4.4 L Ur Specific [place] Coronavirus (PCR) 03/10/21 03/10/21 03/10/21 04:32 04:32 05:26 WBC RBC Hgb Hct RDW Plt Count Seg Neuts % (Manual) Lymphocytes % (Manual) Nucleated RBC % Seg Neutrophils # Man Lymphocytes # (Manual) Monocytes # (Manual) PT INR APTT D-Dimer Heparin Anti-Xa Level ABG pH POC ABG pCO2 POC ABG pO2 ABG pO2 ABG O2 Saturation ABG Base Excess ABG Hemoglobin ABG Oxyhemoglobin ABG Potassium ABG Chloride ABG Glucose Oxyhemoglobin Carboxyhemoglobin Sodium Chloride 112.2 H 111.0 H Carbon Dioxide 21 L 21 L BUN 24 H 25 H Creatinine Glucose 262 H 258 H POC Glucose 246 H Lactic Acid Calcium 7.5 L 7.3 L Lactate Dehydrogenase Troponin T C-Reactive Protein Total Protein 5.8 L Albumin 2.8 L Triglycerides HDL Cholesterol Arterial Blood Glucose Arterial Blood Ionized Calcium Ur Specific [place] Coronavirus (PCR) 03/10/21 03/10/21 03/10/21 11:50 17:18 21:39 WBC RBC Hgb Hct RDW Plt Count Seg Neuts % (Manual) Lymphocytes % (Manual) Nucleated RBC % Seg Neutrophils # Man Lymphocytes # (Manual) Monocytes # (Manual) PT INR APTT D-Dimer Heparin Anti-Xa Level ABG pH POC ABG pCO2 POC ABG pO2 ABG pO2 ABG O2 Saturation ABG Base Excess ABG Hemoglobin ABG Oxyhemoglobin ABG Potassium ABG Chloride ABG Glucose Oxyhemoglobin Carboxyhemoglobin Sodium Chloride Carbon Dioxide BUN Creatinine Glucose POC Glucose 234 H 248 H 242 H Lactic Acid Calcium Lactate Dehydrogenase Troponin T C-Reactive Protein Total Protein Albumin Triglycerides HDL Cholesterol Arterial Blood Glucose Arterial Blood Ionized Calcium Ur Specific [place] Coronavirus (PCR) 03/10/21 03/11/21 03/11/21 22:39 02:12 04:40 WBC RBC Hgb Hct RDW Plt Count Seg Neuts % (Manual) Lymphocytes % (Manual) Nucleated RBC % Seg Neutrophils # Man Lymphocytes # (Manual) Monocytes # (Manual) PT INR APTT D-Dimer Heparin Anti-Xa Level ABG pH 7.481 H POC ABG pCO2 27.3 L POC ABG pO2 180.2 H ABG pO2 ABG O2 Saturation ABG Base Excess ABG Hemoglobin 11.2 L ABG Oxyhemoglobin 99.1 H ABG Potassium ABG Chloride 111.0 H ABG Glucose 311 H Oxyhemoglobin Carboxyhemoglobin 0.2 L Sodium Chloride 108.6 H Carbon Dioxide 21 L BUN 23 H Creatinine Glucose 276 H POC Glucose 245 H Lactic Acid Calcium 8.0 L Lactate Dehydrogenase Troponin T C-Reactive Protein Total Protein 6.1 L Albumin 3.2 L Triglycerides HDL Cholesterol Arterial Blood Glucose 311 H Arterial Blood Ionized Calcium 4.5 L Ur Specific [place] Coronavirus (PCR) 03/11/21 03/11/21 03/11/21 04:55 12:35 18:15 WBC RBC Hgb Hct RDW Plt Count Seg Neuts % (Manual) Lymphocytes % (Manual) Nucleated RBC % Seg Neutrophils # Man Lymphocytes # (Manual) Monocytes # (Manual) PT INR APTT D-Dimer Heparin Anti-Xa Level ABG pH POC ABG pCO2 POC ABG pO2 ABG pO2 ABG O2 Saturation ABG Base Excess ABG Hemoglobin ABG Oxyhemoglobin ABG Potassium ABG Chloride ABG Glucose Oxyhemoglobin Carboxyhemoglobin Sodium Chloride Carbon Dioxide BUN Creatinine Glucose POC Glucose 260 H 273 H 283 H Lactic Acid Calcium Lactate Dehydrogenase Troponin T C-Reactive Protein Total Protein Albumin Triglycerides HDL Cholesterol Arterial Blood Glucose Arterial Blood Ionized Calcium Ur Specific [place] Coronavirus (PCR) 03/11/21 03/12/21 03/12/21 23:17 04:00 05:39 WBC RBC Hgb Hct RDW Plt Count Seg Neuts % (Manual) Lymphocytes % (Manual) Nucleated RBC % Seg Neutrophils # Man Lymphocytes # (Manual) Monocytes # (Manual) PT INR APTT D-Dimer Heparin Anti-Xa Level ABG pH 7.463 H POC ABG pCO2 30.9 L POC ABG pO2 ABG pO2 ABG O2 Saturation ABG Base Excess ABG Hemoglobin 10.7 L ABG Oxyhemoglobin ABG Potassium ABG Chloride ABG Glucose 310 H Oxyhemoglobin Carboxyhemoglobin 0.3 L Sodium Chloride Carbon Dioxide BUN Creatinine Glucose POC Glucose 280 H 278 H Lactic Acid Calcium Lactate Dehydrogenase Troponin T C-Reactive Protein Total Protein Albumin Triglycerides HDL Cholesterol Arterial Blood Glucose 310 H Arterial Blood Ionized Calcium Ur Specific [place] Coronavirus (PCR) 03/12/21 03/12/21 03/12/21 05:52 05:52 13:02 WBC 41.7 H* RBC Hgb Hct RDW Plt Count Seg Neuts % (Manual) Lymphocytes % (Manual) Nucleated RBC % Seg Neutrophils # Man Lymphocytes # (Manual) Monocytes # (Manual) PT INR APTT D-Dimer Heparin Anti-Xa Level ABG pH POC ABG pCO2 POC ABG pO2 ABG pO2 ABG O2 Saturation ABG Base Excess ABG Hemoglobin ABG Oxyhemoglobin ABG Potassium ABG Chloride ABG Glucose Oxyhemoglobin Carboxyhemoglobin Sodium Chloride 107.5 H Carbon Dioxide BUN Creatinine 0.5 L Glucose 297 H POC Glucose 345 H Lactic Acid Calcium 8.1 L Lactate Dehydrogenase Troponin T C-Reactive Protein Total Protein Albumin Triglycerides HDL Cholesterol Arterial Blood Glucose Arterial Blood Ionized Calcium Ur Specific [place] Coronavirus (PCR) Chest x-ray: image reviewed Allied health notes reviewed: nursing
[2021-03-12 17:40] LABS: Heparin-Induced Platelet Antib Negative (Negative); Unfractionated Heparin Negative (Negative)
[2021-03-12] MEDS: SODIUM CHLORIDE 0.9% 50 ML IVPB IV SCH (20:51)
[2021-03-12] MEDS: REMDESIVIR 100 MG in SODIUM CHLORIDE 0.9% 250ML 250 ML IV SCH (20:51)
[2021-03-12] MEDS: cefTRIAXone/NS 2 GM/100 ML 2 GM/100 ML BAG IV SCH (22:01)
[2021-03-12] MEDS: INSULIN GLARGINE 100 UNITS/ML SUB-Q SCH (22:01)
[2021-03-12] MEDS: AZITHROMYCIN/NS 500 MG/250 ML 500 MG/250 ML BAG IV SCH (22:37)
[2021-03-13] MEDS: HEPARIN/ 0.45% NACL DRIP 25,000 UNIT/500 ML BAG IV SCH ×2 (00:07→14:23)
[2021-03-13] MEDS: fentaNYL DRIP Premix 2,000 MCG/100 ML BAG IV SCH ×4 (00:15→23:43)
[2021-03-13] MEDS: INSULIN LISPRO 100 UNIT/ML SUB-Q SCH ×5 (00:43→23:44)
[2021-03-13] MEDS: METOCLOPRAMIDE 10 MG/2 ML INJ IV SCH ×2 (03:11→10:15)
[2021-03-13 04:17] LABS: Hematocrit 31.8 % (30.3-42.9); Hemoglobin 10.4 gm/dl (10.1-14.3); Mean Corpuscular HGB Conc 33 % (30-34); Mean Corpuscular Volume 86 fl (79-97); Platelet Count 337 K/mm3 (140-440); Red Blood Count 3.69 M/mm3 (3.65-5.03); Red Cell Distribution Width 14.9 % (13.2-15.2)
[2021-03-13 04:42] LABS: Blood Urea Nitrogen 18 mg/dL (7-17); Calcium 8.5 mg/dL (8.4-10.2); Hemolysis Index 0
[2021-03-13 05:08] LABS: BUN/Creatinine Ratio 45
[2021-03-13] MEDS ORDERED: INSULIN GLARGINE 100 UNITS/ML SUB-Q SCH ×2 (10:00→22:00)
[2021-03-13] MEDS: SENNOSIDES/DOCUSATE SODIUM 8.6/50 MG TAB FEEDTUBE SCH ×2 (10:12→21:10)
[2021-03-13] MEDS: TAMSULOSIN 0.4 MG CAP PO SCH (10:14)
[2021-03-13] MEDS: ZINC SULFATE 220 MG CAP PO SCH (10:14)
[2021-03-13] MEDS: ASCORBIC ACID 500 MG TAB PO SCH ×2 (10:14→21:10)
[2021-03-13] MEDS: dexAMETHasone 4 MG/ML VIAL IV SCH (10:15)
[2021-03-13] MEDS: FAMOTIDINE 20 MG TAB PO SCH ×2 (10:15→21:10)
[2021-03-13] MEDS: CHOLECALCIFEROL (VIT D3) 5,000 UNIT TAB PO SCH (10:16)
--- NOTE | 2021-03-13 11:42 | Progress Note ---
<KEITHRALPHDakota - Last Filed: 03/13/21 18:58> Assessment and Plan Assessment and plan: This is a 45-year-old female with no significant past medical history admitted to the hospital service with COVID-19 pneumonia, multiple peripheral bilateral lower lobe pulmonary emboli, septic shock, leukocytosis, hyponatremia, hyp ochloremia, metabolic acidosis, lactic acidosis. COVID-19 pneumonia Septic shock secondary to COVID-19 pneumonia Acute hypoxic respiratory failure Pulmonary embolism Leukocytosis Hypochloremia Metabolic acidosis Thrombocytopenia Lactic acidosis Oropharyngeal dysphagia Urinary retention Hyperglycemia Acute metabolic encephalopathy Obesity -CCM, infectious disease consulted, appreciate recommendations -03/07 COVID-19 PCR positive -Droplet/aspiration precautions -Steroid therapy -Vitamin C, vitamin D, zinc -S/p remdesivir -S/p Actemra on 03/09/2021 -Antibiotic therapy -Continuous SPO2 monitoring -Wean mechanical ventilation as tolerated, VAP bundle -Pulmonary hygiene -Aspiration/seizure precautions -Heparin drip -Bowel regimen -Tube feedings -SSI, Accu-Cheks every 6, long-acting insulin -Trend COVID-19 inflammatory markers, CBC, BMP DVT/GI prophylaxis: Systemic anticoagulation with heparin, PPI Disposition: ICU The high probability of a clinically significant, sudden or life threatening deterioration of the [pulmonary] system(s) required my full and direct attention, intervention and personal management. The aggregate critical care time was [35] minutes. This time is in addition to time spent performing reported procedures but includes the following: [X] Data Review and interpretation [X] Patient assessment and monitoring of vital signs [X] Documentation [X] Medication orders and management History Interval history: This is a 45-year-old female with significant past medical history presented to emergency department on 03/07 complaining of cough, shortness of breath and diarrhea for 3 days prior to arrival. Upon arrival to emergency department patient was found to be in respiratory distress and initial oxygen saturations were said to be in the 50s and patient was placed on a nonrebreather with improvement of oxygen saturations to 7 days. Patient was subsequently intubated in the emergency department and upon review patient did not receive COVID-19 vaccination. Work-up in the emergency department revealed bilateral pulmonary infiltrates on CXR, leukocytosis of 31,000, hyperglycemia with a blood glucose of 301, elevated D-dimer greater than 10,000., CTA chest showed multiple peripheral bilateral lower lobe pulmonary emboli. Patient was hypotensive in the emergency department and fluid resuscitated and started on vasopressors. Patient will be admitted to the hospital service with COVID-19 PUI, septic shock secondary to pneumonia, pulmonary emboli and acute hypoxic respiratory failure. [facility] and infectious disease were consulted. Patient was started on heparin drip. 03/08: New issues: Thrombocytosis question if this is secondary to HIT. We will send out HIT panel. Monitor platelets. Continue heparin drip at this time. Await pulmonary and ID input. 03/09: Patient noted to have Covid positive pneumonia ID input is appreciated patient on dexamethasone for complete 10 days of therapy now started on rem desivir due to hypoxia also to complete 5 days therapy and Actemra a one-time. We will continue to monitor -Obtain q48-72h inflammatory markers - ferritin, Ddimer, CRP, LDH -Continue ceftriaxone 2 gm IV qday and azithromycin 500 mg PO qday for 5 days given elevated procal -Anticoagulation per hospital protocol -Proning as able I also requested a stat CBC to further evaluate thrombocytosis that was noted yesterday. I called maría elena Serafinmark Hernandez to update and got voicemail left a message. I also called James David but his phone is unable to accept messages at this time. 03/10: Possible ileus versus bowel obstruction. Will obtain KUB. Continue to hold tube feeds at this time. We will also obtain GI consult if no resolution. Also patient noted to have urinary retention we will proceed with placing a Maya catheter. She does follow commands some when off sedation but gets easily agitated. Continue ICU management at this point. 03/11: Blood sugar still elevated adjusted nighttime insulin for better coverage. KUB concerning for radiopaque object possible tablet. Was not present on 03 08. We will repeat a KUB in a.m. to see if resolution versus ileus. Continue current management for COVID-19. Continue heparin drip for noted pulmonary embolism. Platelets actually improved despite being on heparin doubt HIT. Patient still requires critical care monitoring. Altered mental status still present. 03/12: Worsening leukocytosis this could be secondary to steroids. We will give Lasix today in addition to empiric vitamins. Chest x-ray shows worsening opacities will monitor closely. Continue full mechanical ventilation and restraints for safety. 03/13: At the time my examination patient was on fentanyl at 3 mcg, heparin drip, pressure control ventilation with a rate of 20, pressure support of 20, FiO2 of 35% and PEEP of 12 and ECMO blood change patient ventilation to assist control tidal volume 450, rate of 14, PEEP of 10 in the morning. RN reported the patient did not have a BM since admission and [facility] ordered mag citrate x1. Hospitalist Physical - Constitutional Vitals: Temp Pulse Resp BP Pulse Ox 99.1 F 62 20 155/65 97 03/13/21 08:43 03/13/21 08:15 03/13/21 08:15 03/13/21 08:15 03/13/21 08:15 General appearance: Present: well-nourished, obese, other (Intubated and sedated) - EENT Eyes: Present: PERRL ENT: dentition normal - Neck Neck: Present: normal ROM - Respiratory Respiratory effort: normal Respiratory: bilateral: diminished - Cardiovascular Rhythm: regular Heart Sounds: Present: S1 & S2. Absent: systolic murmur, diastolic murmur - Extremities Extremities: no ischemia, pulses intact, pulses symmetrical, normal temperature, normal color Extremity abnormal: edema Peripheral Pulses: within normal limits - Abdominal General gastrointestinal: soft, non-tender, non-distended, normal bowel sounds, hypoactive bowel sounds - Integumentary Integumentary: Present: warm, dry - Psychiatric Psychiatric: cooperative - Neurologic Neurologic: moves all extremities - Allied Health Allied health notes reviewed: nursing, RT, social work HEART Score - HEART Score Troponin: Troponin T 0.085 ng/mL (0.00-0.029) H 03/07/21 20:31 Results - Labs CBC & Chem 7: 03/13/21 04:00 03/13/21 04:00 Labs: Laboratory Last Values WBC 32.9 K/mm3 (4.5-11.0) H 03/13/21 04:00 RBC 3.69 M/mm3 (3.65-5.03) 03/13/21 04:00 Hgb 10.4 gm/dl (10.1-14.3) 03/13/21 04:00 Hct 31.8 % (30.3-42.9) 03/13/21 04:00 MCV 86 fl (79-97) 03/13/21 04:00 MCH 28 pg (28-32) 03/13/21 04:00 MCHC 33 % (30-34) 03/13/21 04:00 RDW 14.9 % (13.2-15.2) 03/13/21 04:00 Plt Count 337 K/mm3 (140-440) 03/13/21 04:00 Lymph % (Auto) [facility] 03/07/21 21:04 [place] % (Auto) [facility] 03/07/21 21:04 Eos % (Auto) [facility] 03/07/21 21:04 Baso % (Auto) [facility] 03/07/21 21:04 Lymph # (Auto) [facility] 03/07/21 21:04 [place] # (Auto) [facility]ist 03/07/21 21:04 Eos # (Auto) [facility] Specialist 03/07/21 21:04 Baso # (Auto) [facility]ist 03/07/21 21:04 Add Manual Diff Complete 03/10/21 01:12 Total Counted 100 03/10/21 01:12 Seg Neutrophils % [facility] 03/10/21 01:12 Seg Neuts % (Manual) 89.0 % (40.0-70.0) H 03/10/21 01:12 Band Neutrophils % 11.0 % 03/09/21 12:10 Lymphocytes % (Manual) 6.0 % (13.4-35.0) L 03/10/21 01:12 Monocytes % (Manual) 5.0 % (0.0-7.3) 03/10/21 01:12 Metamyelocytes % 1.0 % 03/09/21 12:10 Myelocytes % 1.0 % 03/09/21 12:10 Nucleated RBC % Not Reportable 03/10/21 01:12 Seg Neutrophils # [facility] 03/07/21 21:04 Seg Neutrophils # Man 20.1 K/mm3 (1.8-7.7) H 03/10/21 01:12 Band Neutrophils # 0.0 K/mm3 03/10/21 01:12 Lymphocytes # (Manual) 1.4 K/mm3 (1.2-5.4) 03/10/21 01:12 Abs React Lymphs (Man) 0.0 K/mm3 03/10/21 01:12 Monocytes # (Manual) 1.1 K/mm3 (0.0-0.8) H 03/10/21 01:12 Eosinophils # (Manual) 0.0 K/mm3 (0.0-0.4) 03/10/21 01:12 Basophils # (Manual) 0.0 K/mm3 (0.0-0.1) 03/10/21 01:12 Metamyelocytes # 0.0 K/mm3 03/10/21 01:12 Myelocytes # 0.0 K/mm3 03/10/21 01:12 Promyelocytes # 0.0 K/mm3 03/10/21 01:12 Blast Cells # 0.0 K/mm3 03/10/21 01:12 WBC Morphology Not Reportable 03/10/21 01:12 Hypersegmented Neuts Not Reportable 03/10/21 01:12 Hyposegmented Neuts Not Reportable 03/10/21 01:12 Hypogranular Neuts Not Reportable 03/10/21 01:12 Smudge Cells Not Reportable 03/10/21 01:12 Toxic Granulation Not Reportable 03/10/21 01:12 Toxic Vacuolation Not Reportable 03/10/21 01:12 Dohle Bodies Not Reportable 03/10/21 01:12 Pelger-Huet Anomaly Not Reportable 03/10/21 01:12 Jarrett Rods Not Reportable 03/10/21 01:12 Platelet Estimate Not Reportable 03/10/21 01:12 Clumped Platelets Not Reportable 03/10/21 01:12 Plt Clumps, EDTA Not Reportable 03/10/21 01:12 Large Platelets Not Reportable 03/10/21 01:12 Giant Platelets Not Reportable 03/10/21 01:12 Platelet Satelliting Not Reportable 03/10/21 01:12 Plt Morphology Comment Not Reportable 03/10/21 01:12 RBC Morphology Normal 03/10/21 01:12 Dimorphic RBCs Not Reportable 03/10/21 01:12 Polychromasia Not Reportable 03/10/21 01:12 Hypochromasia Not Reportable 03/10/21 01:12 Poikilocytosis Not Reportable 03/10/21 01:12 Anisocytosis Not Reportable 03/10/21 01:12 Microcytosis Not Reportable 03/10/21 01:12 Macrocytosis Not Reportable 03/10/21 01:12 Spherocytes Not Reportable 03/10/21 01:12 Pappenheimer Bodies Not Reportable 03/10/21 01:12 Sickle Cells Not Reportable 03/10/21 01:12 Target Cells Not Reportable 03/10/21 01:12 Tear Drop Cells Not Reportable 03/10/21 01:12 Ovalocytes Not Reportable 03/10/21 01:12 Helmet Cells Not Reportable 03/10/21 01:12 [place] Bodies Not Reportable 03/10/21 01:12 Brogue Rings Not Reportable 03/10/21 01:12 [place] Cells Not Reportable 03/10/21 01:12 Bite Cells Not Reportable 03/10/21 01:12 Crenated Cell Not Reportable 03/10/21 01:12 Elliptocytes Not Reportable 03/10/21 01:12 Acanthocytes (Spur) Not Reportable 03/10/21 01:12 Rouleaux Not Reportable 03/10/21 01:12 Hemoglobin C Crystals Not Reportable 03/10/21 01:12 Schistocytes Not Reportable 03/10/21 01:12 Malaria parasites Not Reportable 03/10/21 01:12 Joss Bodies Not Reportable 03/10/21 01:12 Hem Pathologist Commnt No 03/10/21 01:12 PT 18.5 Sec. (12.2-14.9) H 03/08/21 07:55 INR 1.49 (0.87-1.13) H 03/08/21 07:55 APTT 113.5 Sec. (24.2-36.6) H* 03/08/21 07:55 D-Dimer > 91273 ng/mlDDU (0-234) H 03/07/21 21:28 Heparin Anti-Xa Level 0.29 U.I./ml (0.3-0.7) L 03/13/21 04:00 Heparin Anti-Xa, Unfract Negative (Negative) 03/08/21 13:00 ABG pH 7.465 (7.320-7.450) H 03/13/21 05:58 POC ABG pCO2 39.4 mmHg (32.0-48.0) 03/13/21 05:58 ABG pCO2 39.5 mm Hg 03/07/21 Unknown POC ABG pO2 79.5 mmHg (83-108) L 03/13/21 05:58 ABG pO2 62.6 mm Hg (80.0-90.0) L 03/07/21 Unknown POC ABG HCO3 27.7 03/13/21 05:58 ABG HCO3 20.7 mmol/L (20.0-26.0) 03/07/21 Unknown ABG O2 Saturation 95.6 (0-100) 03/13/21 05:58 ABG O2 Content 15.1 (0.0-44) 03/07/21 Unknown POC ABG Base Excess 3.7 03/13/21 05:58 ABG Base Excess -4.7 mmol/L (-2.0-3.0) L 03/07/21 Unknown ABG Hemoglobin 10.6 (12.0-17.5) L 03/13/21 05:58 ABG Oxyhemoglobin 94.9 (94-98) 03/13/21 05:58 ABG Carboxyhemoglobin 1.4 % (0.0-5.0) 03/07/21 Unknown ABG Methemoglobin 0.3 (0.0-1.5) 03/13/21 05:58 ABG Sodium 136.2 mmol/L (136.0-145.0) 03/13/21 05:58 ABG Potassium 4.3 mmol/L (3.40-4.50) 03/13/21 05:58 ABG Chloride 102.0 mmol/L (98-107) 03/13/21 05:58 ABG Glucose 319 mg/dL (65-95) H 03/13/21 05:58 Oxyhemoglobin 87.3 % (95.0-99.0) L 03/07/21 Unknown Carboxyhemoglobin 0.4 (0.5-1.5) L 03/13/21 05:58 FiO2 100 % 03/07/21 Unknown FiO2 % 40 03/13/21 05:58 Sodium 138 mmol/L (137-145) 03/13/21 04:00 Potassium 4.2 mmol/L (3.6-5.0) 03/13/21 04:00 Chloride 101.1 mmol/L (98-107) 03/13/21 04:00 Carbon Dioxide 27 mmol/L (22-30) 03/13/21 04:00 Anion Gap 14 mmol/L 03/13/21 04:00 BUN 18 mg/dL (7-17) H 03/13/21 04:00 Creatinine 0.4 mg/dL (0.6-1.2) L 03/13/21 04:00 Estimated GFR > 60 ml/min 03/13/21 04:00 BUN/Creatinine Ratio 45 % 03/13/21 04:00 Glucose 316 mg/dL (65-100) H 03/13/21 04:00 POC Glucose 318 mg/dL (70-105) H 03/13/21 05:28 Lactic Acid 1.90 mmol/L (0.7-2.0) 03/10/21 01:12 Calcium 8.5 mg/dL (8.4-10.2) 03/13/21 04:00 Ferritin 148.8 ng/mL (10.0-200.0) 03/07/21 20:31 Total Bilirubin 0.30 mg/dL (0.1-1.2) 03/11/21 04:40 AST 19 units/L (5-40) 03/11/21 04:40 ALT 12 units/L (7-56) 03/11/21 04:40 Alkaline Phosphatase 107 units/L (35-129) 03/11/21 04:40 Lactate Dehydrogenase 1259 units/L (91-180) H 03/07/21 20:31 Troponin T 0.085 ng/mL (0.00-0.029) H 03/07/21 20:31 C-Reactive Protein 25.50 mg/dL (0.00-1.30) H 03/07/21 20:31 Total Protein 6.1 g/dL (6.3-8.2) L 03/11/21 04:40 Albumin 3.2 g/dL (3.9-5) L 03/11/21 04:40 Albumin/Globulin Ratio 1.1 % 03/11/21 04:40 Triglycerides 213 mg/dL (2-149) H 03/07/21 20:31 Cholesterol 141 mg/dL (50-199) 03/07/21 20:31 LDL Cholesterol Direct 72 mg/dL (50-130) 03/07/21 20:31 HDL Cholesterol 34 mg/dL (40-59) L 03/07/21 20:31 Cholesterol/HDL Ratio 4.14 % 03/07/21 20:31 Procalcitonin 0.20 ng/mL (<0.15) 03/13/21 08:08 HCG, Qual Negative (Negative) 03/07/21 22:48 Arterial Blood Glucose 319 mg/dL (65-95) H 03/13/21 05:58 Arterial Blood Ionized Calcium 4.5 mg/dL (4.6-5.3) L 03/13/21 05:58 Urine Color Yellow (Yellow) 03/08/21 05:51 Urine Turbidity Clear (Clear) 03/08/21 05:51 Urine pH 6.0 (5.0-7.0) 03/08/21 05:51 Ur Specific [place] > 1.050 (1.003-1.030) H 03/08/21 05:51 Urine Protein 100 mg/dl mg/dL (Negative) 03/08/21 05:51 Urine Glucose (UA) Neg mg/dL (Negative) 03/08/21 05:51 Urine Ketones Neg mg/dL (Negative) 03/08/21 05:51 Urine Blood Neg (Negative) 03/08/21 05:51 Urine Nitrite Neg (Negative) 03/08/21 05:51 Urine Bilirubin Neg (Negative) 03/08/21 05:51 Urine Urobilinogen 4.0 mg/dL (<2.0) 03/08/21 05:51 Ur Leukocyte Esterase Neg (Negative) 03/08/21 05:51 Urine WBC (Auto) 5.0 /HPF (0.0-6.0) 03/08/21 05:51 Urine RBC (Auto) 5.0 /HPF (0.0-6.0) 03/08/21 05:51 U Epithel Cells (Auto) < 1.0 /HPF (0-13.0) 03/08/21 05:51 Urine Bacteria (Auto) 1+ /HPF (Negative) 03/08/21 05:51 Urine Mucus Few /HPF 03/08/21 05:51 Heparin-induced Plt Ab Negative (Negative) 03/08/21 13:00 UF Heparin High Dose 0 % Release 03/08/21 13:00 JESSY UFH Low Dose 0.1 0 % Release 03/08/21 13:00 JESSY UFH Low Dose 0.5 0 % Release 03/08/21 13:00 Coronavirus (PCR) Positive (Negative) A 03/07/21 Unknown Microbiology: Microbiology 03/10/21 04:32 Peripheral/Venous Blood Culture - Preliminary NO GROWTH AFTER 72 HOURS 03/10/21 01:12 Peripheral/Venous Blood Culture - Preliminary NO GROWTH AFTER 72 HOURS 03/07/21 20:31 Peripheral/Venous Blood Culture - Final NO GROWTH AFTER 5 DAYS 03/07/21 20:38 Peripheral/Venous Blood Culture - Final NO GROWTH AFTER 5 DAYS 03/08/21 17:05 Tracheal Aspirate Sputum Culture - Final Lakshmi Albicans Maya/IV: Voiding Method Indwelling Catheter Active Medications - Current Medications Current Medications: Generic Name Dose Route Start Last Admin Trade Name Freq PRN Reason Stop Dose Admin Acetaminophen 650 mg 03/10/21 00:30 Acetaminophen 650 Mg Rect Supp VA Q4H PRN Pain, Mild (1-3) Lipase/Protease/Amylase 1 each 03/08/21 13:40 Lipase 10,500/Protease 25,000/Amylase 43,750 (Units) Dr Cap FEEDTUBE PRN PRN For Clogged Feeding Tube Ascorbic Acid 1,000 mg 03/12/21 10:00 03/13/21 10:14 Ascorbic Acid 500 Mg Tab PO 1,000 mg BID MARCO ANTONIO Administration Cholecalciferol 5,000 unit 03/12/21 10:00 03/13/21 10:16 Cholecalciferol (Vit D3) 5,000 Unit Tab PO Not Given DAILY MARCO ANTONIO Dexamethasone 8 mg 03/08/21 10:00 03/13/21 10:15 Dexamethasone 4 Mg/Ml Vial IV 03/17/21 10:01 8 mg DAILY MARCO ANTONIO Administration Dextrose 50 ml 03/07/21 22:57 Dextrose 50% In Water (25gm) 50 Ml Syringe IV Q30MIN PRN Hypoglycemia Protocol Famotidine 20 mg 03/13/21 10:00 03/13/21 10:15 Famotidine 20 Mg Tab PO 20 mg BID MARCO ANTONIO Administration Fentanyl 50 mcg 03/07/21 21:20 03/07/21 22:13 Fentanyl 100 Mcg/2 Ml Inj IV 50 mcg Q10MIN PRN Administration ANALGESIA Heparin Sodium (Porcine) 8,000 unit 03/08/21 03:37 Heparin 10,000 Units/10 Ml Vial 40 unit/kg (8000 unit) IV Q6H PRN Anti-Xa Assay < 0.1 units/ml Hydrophilic Ointment 1 applic 03/08/21 12:42 Lip Therapy Vaseline TP Q2HR PRN Dry Lips Propofol 1,000 mg in 100 mls @ 3.084 mls/hr 03/07/21 21:00 03/12/21 06:05 Diprivan 10 Mg/Ml IV 0 mcg/kg/min TITR MARCO ANTONIO 0 mls/hr Titration Protocol 5 MCG/KG/MIN Fentanyl Citrate 2,000 mcg in 100 mls @ 5.14 mls/hr 03/07/21 22:00 03/13/21 07:25 Fentanyl Drip Premix IV 3 mcg/kg/hr TITR MARCO ANTONIO 15.42 mls/hr Administration Protocol 1 MCG/KG/HR Norepinephrine 4 mg in 250 mls @ 7.5 mls/hr 03/07/21 23:45 03/08/21 08:15 Levophed Drip 4 Mg/Ns 250 Ml IV 0 mcg/min TITR MARCO ANTONIO 0 mls/hr Titration Protocol 2 MCG/MIN Heparin Sodium/Sodium Chloride 25,000 unit in 500 mls @ 30 mls/hr 03/08/21 04:00 03/13/21 05:25 Heparin/ 0.45% Nacl-25,000 Unit/500 Ml IV 1,800 units/hr TITR MARCO ANTONIO 36 mls/hr Titration Protocol 1,500 UNITS/HR Insulin Glargine 30 units 03/13/21 22:00 Insulin Glargine 100 Units/Ml SUB-Q QHS [facility] Insulin Human Lispro 0 unit 03/08/21 12:00 03/13/21 06:01 Insulin Lispro 100 Unit/Ml SUB-Q 8 unit Q6HR [facility] Administration Protocol Magnesium Hydroxide 30 ml 03/07/21 22:57 03/13/21 10:13 Magnesium Hydroxide (Mom) Oral Liqd Udc PO 30 ml Q4H PRN Administration Constipation Morphine Sulfate 2 mg 03/07/21 22:57 03/09/21 21:29 Morphine 2 Mg/1 Ml Inj IV 2 mg Q4H PRN Administration Pain, Moderate (4-6) Multi-Ingred Cream/Lotion/Oil/Oint 1 applic 03/08/21 12:42 Mineral Oil/Petrolatum, White Ophth Oint 3.5 Gm OU Q4HR PRN Dry Eye(s) Ondansetron HCl 4 mg 03/07/21 22:57 Ondansetron 4 Mg/2 Ml Inj IV Q8H PRN Nausea And Vomiting Senna/Docusate Sodium 1 tab 03/08/21 22:00 03/13/21 10:12 Sennosides/Docusate Sodium 8.6/50 Mg Tab FEEDTUBE 1 tab BID MARCO ANTONIO Administration Simple Syrup 15 ml 03/08/21 13:40 Simple Syrup 15 Ml FEEDTUBE PRN PRN Hypoglycemia Simple Syrup 30 ml 03/08/21 13:40 Simple Syrup 15 Ml FEEDTUBE PRN PRN Hypoglycemia Sodium Bicarbonate 325 mg 03/08/21 13:40 Sodium Bicarbonate 325 Mg Tab FEEDTUBE PRN PRN For Clogged Feeding Tube Sodium Chloride 10 ml 03/08/21 10:00 03/13/21 10:16 Sodium Chloride 0.9% 10 Ml Flush Syringe IV 10 ml BID MARCO ANTONIO Administration Sodium Chloride 10 ml 03/07/21 22:57 Sodium Chloride 0.9% 10 Ml Flush Syringe IV PRN PRN LINE FLUSH Tamsulosin HCl 0.4 mg 03/10/21 14:00 03/13/21 10:14 Tamsulosin 0.4 Mg Cap PO 0.4 mg QDAY MARCO ANTONIO Administration Zinc Sulfate 220 mg 03/12/21 10:00 03/13/21 10:14 Zinc Sulfate 220 Mg Cap PO 220 mg QDAY MARCO ANTONIO Administration Nutrition/Malnutrition Assess - Dietary Evaluation Nutrition/Malnutrition Findings: Nutrition Notes Start: 03/08/21 12:27 Freq: Status: Active Protocol: Document 03/10/21 11:47 CW (Rec: 03/10/21 12:20 CW [id number]) Nutrition Notes Initial or Follow up Reassessment Current Diagnosis Sepsis,Respiratory Failure Other Pertinent Diagnosis Pneu, r/o COVID-19, pulmonary embolism Current Diet Vital AF at 50 ml/hr Labs/Tests BG 258 Pertinent Medications Propofol at 12.336 ml/hr ( provides 326 kcal) Sennakopt Decadron Humalog NS at 1L Height 5 ft Weight 102.8 kg [place] Body Weight (kg) 45.45 BMI 44.2 Weight Status Morbidly Obese Subjective/Other Information F/U for TF and vent status. Pt remains on mechanical vent. TF held at this time d/t vomiting per RN. ordered NGT to LIS; If residuals are minimal plan is to restart TF at 10 ml/hr and increase grauduall as tolerated. MD also plans to initiate reglan. Percent of energy/protein needs met: 0%/0% Burn Absent Trauma Absent GI Symptoms Vomiting Current % PO Negligible Minimum of two criteria No Reduced Dance Coach Strength Measurably Reduced (severe) #1 Nutrition Diagnosis Inadequate oral intake Diagnosis Progress(for reassessment Continues documentation) Is patient on ventilator? Yes Is Patient Ambulatory and/or Out of Bed No REE-([place]-St. Jeor-confined to bed) 1904.676 Kcal/Kg value to use for calculation 14 Approximate Energy Requirements Using 1439 kcal/Kg Calculation Used for Recommendations Kcal/kg Additional Notes Pro needs up to 2.5g/kg IBW: 114g/day Fluid needs 1ml/kcal Nutrition Intervention Change Diet Order: Restart TF when medically feasible Nutrition Support: Vital AF 1.2 at 50ml/hr with 80ml water flush q4h. Kcal 1,440 Protein (gm) 90 Fluid (mL) 937 Goal #1 TF tolerance Goal #2 TF (at goal rate) to meet at least 75% energy and pro needs Anticipated Discharge Needs: Unable to determine at this time Follow-Up By: 03/13/21 Additional Comments F/U for TF restart and tolerance <LILLIAM BELLA - Last Filed: 03/21/21 07:22> Assessment and Plan Assessment and plan: I saw and evaluated the patient. I agree with the findings and the plan of care as documented in the Nurse Practitioner's~note, with the following corrections and additions. Hospitalist Physical - Constitutional Vitals: Temp Pulse Resp BP Pulse Ox 98.7 F 84 18 103/57 86 03/21/21 04:15 03/21/21 04:15 03/21/21 04:15 03/21/21 04:15 03/21/21 04:15 HEART Score - HEART Score Troponin: Troponin T 0.085 ng/mL (0.00-0.029) H 03/07/21 20:31 Results - Labs CBC & Chem 7: 03/20/21 Unknown 03/20/21 11:15 Labs: Laboratory Last Values WBC 16.5 K/mm3 (4.5-11.0) H 03/20/21 Unknown RBC 3.99 M/mm3 (3.65-5.03) 03/20/21 Unknown Hgb 11.3 gm/dl (10.1-14.3) 03/20/21 Unknown Hct 34.4 % (30.3-42.9) 03/20/21 Unknown MCV 86 fl (79-97) 03/20/21 Unknown MCH 28 pg (28-32) 03/20/21 Unknown MCHC 33 % (30-34) 03/20/21 Unknown RDW 15.4 % (13.2-15.2) H 03/20/21 Unknown Plt Count 277 K/mm3 (140-440) 03/20/21 Unknown Lymph % (Auto) [facility] 03/07/21 21:04 [place] % (Auto) [facility] Detoxification Specialist 03/07/21 21:04 Eos % (Auto) [facility] Detoxification Specialist 03/07/21 21:04 Baso % (Auto) [facility] Detoxification Specialist 03/07/21 21:04 Lymph # (Auto) [facility] Detoxification Specialist 03/07/21 21:04 [place] # (Auto) [facility] Detoxification Specialist 03/07/21 21:04 Eos # (Auto) [facility] Detoxification Specialist 03/07/21 21:04 Baso # (Auto) [facility] Detoxification Specialist 03/07/21 21:04 Add Manual Diff Complete 03/10/21 01:12 Total Counted 100 03/10/21 01:12 Seg Neutrophils % [facility] 03/10/21 01:12 Seg Neuts % (Manual) 89.0 % (40.0-70.0) H 03/10/21 01:12 Band Neutrophils % 11.0 % 03/09/21 12:10 Lymphocytes % (Manual) 6.0 % (13.4-35.0) L 03/10/21 01:12 Monocytes % (Manual) 5.0 % (0.0-7.3) 03/10/21 01:12 Metamyelocytes % 1.0 % 03/09/21 12:10 Myelocytes % 1.0 % 03/09/21 12:10 Nucleated RBC % Not Reportable 03/10/21 01:12 Seg Neutrophils # [facility] Specialist 03/07/21 21:04 Seg Neutrophils # Man 20.1 K/mm3 (1.8-7.7) H 03/10/21 01:12 Band Neutrophils # 0.0 K/mm3 03/10/21 01:12 Lymphocytes # (Manual) 1.4 K/mm3 (1.2-5.4) 03/10/21 01:12 Abs React Lymphs (Man) 0.0 K/mm3 03/10/21 01:12 Monocytes # (Manual) 1.1 K/mm3 (0.0-0.8) H 03/10/21 01:12 Eosinophils # (Manual) 0.0 K/mm3 (0.0-0.4) 03/10/21 01:12 Basophils # (Manual) 0.0 K/mm3 (0.0-0.1) 03/10/21 01:12 Metamyelocytes # 0.0 K/mm3 03/10/21 01:12 Myelocytes # 0.0 K/mm3 03/10/21 01:12 Promyelocytes # 0.0 K/mm3 03/10/21 01:12 Blast Cells # 0.0 K/mm3 03/10/21 01:12 WBC Morphology Not Reportable 03/10/21 01:12 Hypersegmented Neuts Not Reportable 03/10/21 01:12 Hyposegmented Neuts Not Reportable 03/10/21 01:12 Hypogranular Neuts Not Reportable 03/10/21 01:12 Smudge Cells Not Reportable 03/10/21 01:12 Toxic Granulation Not Reportable 03/10/21 01:12 Toxic Vacuolation Not Reportable 03/10/21 01:12 Dohle Bodies Not Reportable 03/10/21 01:12 Pelger-Huet Anomaly Not Reportable 03/10/21 01:12 Jarrett Rods Not Reportable 03/10/21 01:12 Platelet Estimate Not Reportable 03/10/21 01:12 Clumped Platelets Not Reportable 03/10/21 01:12 Plt Clumps, EDTA Not Reportable 03/10/21 01:12 Large Platelets Not Reportable 03/10/21 01:12 Giant Platelets Not Reportable 03/10/21 01:12 Platelet Satelliting Not Reportable 03/10/21 01:12 Plt Morphology Comment Not Reportable 03/10/21 01:12 RBC Morphology Normal 03/10/21 01:12 Dimorphic RBCs Not Reportable 03/10/21 01:12 Polychromasia Not Reportable 03/10/21 01:12 Hypochromasia Not Reportable 03/10/21 01:12 Poikilocytosis Not Reportable 03/10/21 01:12 Anisocytosis Not Reportable 03/10/21 01:12 Microcytosis Not Reportable 03/10/21 01:12 Macrocytosis Not Reportable 03/10/21 01:12 Spherocytes Not Reportable 03/10/21 01:12 Pappenheimer Bodies Not Reportable 03/10/21 01:12 Sickle Cells Not Reportable 03/10/21 01:12 Target Cells Not Reportable 03/10/21 01:12 Tear Drop Cells Not Reportable 03/10/21 01:12 Ovalocytes Not Reportable 03/10/21 01:12 Helmet Cells Not Reportable 03/10/21 01:12 [place] Bodies Not Reportable 03/10/21 01:12 Brogue Rings Not Reportable 03/10/21 01:12 Brant Cells Not Reportable 03/10/21 01:12 Bite Cells Not Reportable 03/10/21 01:12 Crenated Cell Not Reportable 03/10/21 01:12 Elliptocytes Not Reportable 03/10/21 01:12 Acanthocytes (Spur) Not Reportable 03/10/21 01:12 Rouleaux Not Reportable 03/10/21 01:12 Hemoglobin C Crystals Not Reportable 03/10/21 01:12 Schistocytes Not Reportable 03/10/21 01:12 Malaria parasites Not Reportable 03/10/21 01:12 Joss Bodies Not Reportable 03/10/21 01:12 Hem Pathologist Commnt No 03/10/21 01:12 PT 15.4 Sec. (12.2-14.9) H 03/20/21 09:44 INR 1.17 (0.87-1.13) H 03/20/21 09:44 APTT 32.2 Sec. (24.2-36.6) 03/20/21 09:44 D-Dimer 4136.20 ng/mlDDU (0-234) H 03/20/21 Unknown Heparin Anti-Xa Level < 0.10 U.I./ml (0.3-0.7) L 03/17/21 15:35 Heparin Anti-Xa, Unfract Negative (Negative) 03/08/21 13:00 ABG pH 7.437 (7.320-7.450) 03/19/21 04:45 POC ABG pCO2 46.8 mmHg (32.0-48.0) 03/19/21 04:45 ABG pCO2 41.0 mm Hg 03/18/21 10:40 POC ABG pO2 97.0 mmHg (83-108) 03/19/21 04:45 ABG pO2 65.2 mm Hg (80.0-90.0) L 03/18/21 10:40 POC ABG HCO3 30.9 03/19/21 04:45 ABG HCO3 27.5 mmol/L (20.0-26.0) H 03/18/21 10:40 ABG O2 Saturation 97.3 (0-100) 03/19/21 04:45 ABG O2 Content 14.7 (0.0-44) 03/18/21 10:40 POC ABG Base Excess 5.8 03/19/21 04:45 ABG Base Excess 3.2 mmol/L (-2.0-3.0) H 03/18/21 10:40 ABG Hemoglobin 11.4 (12.0-17.5) L 03/19/21 04:45 ABG Oxyhemoglobin 96.1 (94-98) 03/19/21 04:45 ABG Carboxyhemoglobin 1.7 % (0.0-5.0) 03/18/21 10:40 ABG Methemoglobin 0.3 (0.0-1.5) 03/19/21 04:45 ABG Sodium 139.6 mmol/L (136.0-145.0) 03/19/21 04:45 ABG Potassium 3.8 mmol/L (3.40-4.50) 03/19/21 04:45 ABG Chloride 101.0 mmol/L (98-107) 03/19/21 04:45 ABG Glucose 70 mg/dL (65-95) 03/19/21 04:45 Oxyhemoglobin 91.5 % (95.0-99.0) L 03/18/21 10:40 Carboxyhemoglobin 0.9 (0.5-1.5) 03/19/21 04:45 FiO2 35 % 03/18/21 10:40 FiO2 % 45.0 03/19/21 04:45 Sodium 140 mmol/L (137-145) 03/19/21 Unknown Potassium 3.2 mmol/L (3.6-5.0) L 03/19/21 Unknown Chloride 105.0 mmol/L (98-107) 03/19/21 Unknown Carbon Dioxide 27 mmol/L (22-30) 03/19/21 Unknown Anion Gap 11 mmol/L 03/19/21 Unknown BUN 15 mg/dL (7-17) 03/19/21 Unknown Creatinine 0.4 mg/dL (0.6-1.2) L 03/20/21 11:15 Estimated GFR > 60 ml/min 03/20/21 11:15 BUN/Creatinine Ratio 50 % 03/19/21 Unknown Glucose 88 mg/dL (65-100) 03/19/21 Unknown POC Glucose 114 mg/dL (70-105) H 03/20/21 21:48 Lactic Acid 1.90 mmol/L (0.7-2.0) 03/10/21 01:12 Calcium 7.4 mg/dL (8.4-10.2) L D 03/19/21 Unknown Ferritin 131.5 ng/mL (10.0-200.0) 03/20/21 Unknown Total Bilirubin 0.30 mg/dL (0.1-1.2) 03/11/21 04:40 AST 19 units/L (5-40) 03/11/21 04:40 ALT 12 units/L (7-56) 03/11/21 04:40 Alkaline Phosphatase 107 units/L (35-129) 03/11/21 04:40 Lactate Dehydrogenase 512 units/L (91-180) H 03/20/21 Unknown Troponin T 0.085 ng/mL (0.00-0.029) H 03/07/21 20:31 C-Reactive Protein 0.80 mg/dL (0.00-1.30) 03/20/21 Unknown Total Protein 6.1 g/dL (6.3-8.2) L 03/11/21 04:40 Albumin 3.2 g/dL (3.9-5) L 03/11/21 04:40 Albumin/Globulin Ratio 1.1 % 03/11/21 04:40 Triglycerides 136 mg/dL (2-149) 03/17/21 02:00 Cholesterol 141 mg/dL (50-199) 03/07/21 20:31 LDL Cholesterol Direct 72 mg/dL (50-130) 03/07/21 20:31 HDL Cholesterol 34 mg/dL (40-59) L 03/07/21 20:31 Cholesterol/HDL Ratio 4.14 % 03/07/21 20:31 Serotonin Release Assay See scanned result 03/08/21 13:00 Procalcitonin 0.20 ng/mL (<0.15) 03/13/21 08:08 HCG, Qual Negative (Negative) 03/07/21 22:48 Arterial Blood Glucose 70 mg/dL (65-95) 03/19/21 04:45 Arterial Blood Ionized Calcium 4.7 mg/dL (4.6-5.3) 03/19/21 04:45 Urine Color Yellow (Yellow) 03/08/21 05:51 Urine Turbidity Clear (Clear) 03/08/21 05:51 Urine pH 6.0 (5.0-7.0) 03/08/21 05:51 Ur Specific [place] > 1.050 (1.003-1.030) H 03/08/21 05:51 Urine Protein 100 mg/dl mg/dL (Negative) 03/08/21 05:51 Urine Glucose (UA) Neg mg/dL (Negative) 03/08/21 05:51 Urine Ketones Neg mg/dL (Negative) 03/08/21 05:51 Urine Blood Neg (Negative) 03/08/21 05:51 Urine Nitrite Neg (Negative) 03/08/21 05:51 Urine Bilirubin Neg (Negative) 03/08/21 05:51 Urine Urobilinogen 4.0 mg/dL (<2.0) 03/08/21 05:51 Ur Leukocyte Esterase Neg (Negative) 03/08/21 05:51 Urine WBC (Auto) 5.0 /HPF (0.0-6.0) 03/08/21 05:51 Urine RBC (Auto) 5.0 /HPF (0.0-6.0) 03/08/21 05:51 U Epithel Cells (Auto) < 1.0 /HPF (0-13.0) 03/08/21 05:51 Urine Bacteria (Auto) 1+ /HPF (Negative) 03/08/21 05:51 Urine Mucus Few /HPF 03/08/21 05:51 Heparin-induced Plt Ab Negative (Negative) 03/08/21 13:00 UF Heparin High Dose 0 % Release 03/08/21 13:00 JESSY UFH Low Dose 0.1 0 % Release 03/08/21 13:00 JESSY UFH Low Dose 0.5 0 % Release 03/08/21 13:00 Coronavirus (PCR) Positive (Negative) A 03/07/21 Unknown Maya/IV: Voiding Method External Female Catheter Active Medications - Current Medications Current Medications: Generic Name Dose Route Start Last Admin Trade Name Freq PRN Reason Stop Dose Admin Acetaminophen 650 mg 03/10/21 00:30 Acetaminophen 650 Mg Rect Supp VA Q4H PRN Pain, Mild (1-3) Albuterol 2.5 mg 03/20/21 12:36 Albuterol 2.5 Mg/3 Ml Nebu IH Q4H PRN Wheezing Apixaban 5 mg 03/20/21 22:00 03/20/21 23:24 Apixaban 5 Mg Tab PO 5 mg Q12HR MARCO ANTONIO Administration Protocol Ascorbic Acid 1,000 mg 03/12/21 10:00 03/20/21 23:24 Ascorbic Acid 500 Mg Tab PO 1,000 mg BID MARCO ANTONIO Administration Cholecalciferol 5,000 unit 03/12/21 10:00 03/20/21 09:06 Cholecalciferol (Vit D3) 5,000 Unit Tab PO 5,000 unit DAILY MARCO ANTONIO Administration Dextrose 50 ml 03/07/21 22:57 Dextrose 50% In Water (25gm) 50 Ml Syringe IV Q30MIN PRN Hypoglycemia Protocol Famotidine 20 mg 03/13/21 10:00 03/20/21 23:24 Famotidine 20 Mg Tab PO 20 mg BID MARCO ANTONIO Administration Hydrophilic Ointment 1 applic 03/08/21 12:42 Lip Therapy Vaseline TP Q2HR PRN Dry Lips Insulin Glargine 10 units 03/21/21 08:00 Insulin Glargine 100 Units/Ml SUB-Q QAMDIAB [facility] Insulin Human Lispro 0 unit 03/20/21 11:30 03/20/21 23:23 Insulin Lispro 100 Unit/Ml SUB-Q Not Given ACHS [facility] Protocol Magnesium Hydroxide 30 ml 03/07/21 22:57 03/13/21 10:13 Magnesium Hydroxide (Mom) Oral Liqd Udc PO 30 ml Q4H PRN Administration Constipation Multi-Ingred Cream/Lotion/Oil/Oint 1 applic 03/08/21 12:42 Mineral Oil/Petrolatum, White Ophth Oint 3.5 Gm OU Q4HR PRN Dry Eye(s) Ondansetron HCl 4 mg 03/07/21 22:57 Ondansetron 4 Mg/2 Ml Inj IV Q8H PRN Nausea And Vomiting Phenol 1 spray 03/21/21 08:00 Phenol 1.4% 177 Ml Bottle MM Q2H PRN Sore Throat Senna/Docusate Sodium 1 tab 03/08/21 22:00 03/20/21 23:24 Sennosides/Docusate Sodium 8.6/50 Mg Tab FEEDTUBE 1 tab BID MARCO ANTONIO Administration Sodium Chloride 10 ml 03/08/21 10:00 03/20/21 23:25 Sodium Chloride 0.9% 10 Ml Flush Syringe IV 10 ml BID MARCO ANTONIO Administration Sodium Chloride 10 ml 03/07/21 22:57 Sodium Chloride 0.9% 10 Ml Flush Syringe IV PRN PRN LINE FLUSH Zinc Sulfate 220 mg 03/12/21 10:00 03/20/21 09:06 Zinc Sulfate 220 Mg Cap PO 220 mg QDAY MARCO ANTONIO Administration Nutrition/Malnutrition Assess - Dietary Evaluation Nutrition/Malnutrition Findings: Nutrition Notes Start: 03/08/21 12:27 Freq: Status: Active Protocol: Document 03/20/21 09:31 TIFFANY (Rec: 03/20/21 09:36 [facility] [id number]) Nutrition Notes Initial or Follow up Reassessment Current Diagnosis Respiratory Failure Other Pertinent Diagnosis COVID-19 (+), pulmonary embolism Current Diet GI soft diet Labs/Tests POC Glu range since last assessment: 74-171 Pertinent Medications Lantus Height 5 ft Weight 102.5 kg [place] Body Weight (kg) 45.45 BMI 44.1 Weight Status Morbidly Obese Subjective/Other Information Pt self-extubated yesterday. Diet advanced for dinner last night. Burn Absent Trauma Absent #1 Nutrition Diagnosis Inadequate oral intake Diagnosis Progress(for reassessment Continues documentation) Is patient on ventilator? No Is Patient Ambulatory and/or Out of Bed No REE-([facility]-confined to bed) 1901.088 Kcal/Kg value to use for calculation 14 Approximate Energy Requirements Using 1435 kcal/Kg Calculation Used for Recommendations Kcal/kg Additional Notes Pro needs up to 2.5g/kg IBW: 114g/day Fluid needs 1ml/kcal Nutrition Intervention Change Diet Order: Continue current diet order Nutrition Support: D/C Vital AF 1.2 if tolerating PO intake Goal #1 PO tolerance Follow-Up By: 03/22/21 Additional Comments F/U: po tolerance, need for TF
--- NOTE | 2021-03-13 12:45 | Progress Note ---
Assessment and Plan Cultures: Blood culture no growth so far Covid PCR: Positive A/P: 45-year-old female no past medical history admitted with COVID-19 pneumonia and bilateral pulmonary emboli. #Severe COVID-19 pneumonia: Patient presented with 3 days of symptoms, chest x- ray with diffuse bilateral infiltrates, admission O2 sats 50% on room air. Inflammatory markers elevated #Acute hypoxemic respiratory failure: Likely secondary to COVID-19 infection. Currently on the vent #Bilateral pulmonary emboli: Anticoagulation per primary #Obesity: Associated with worse COVID-19 outcomes. Recs: -Dexamethasone 6 mg IV/PO daily for 10 days -Completed remdesivir -Actemra 03/09/2021 -Obtain q48-72h inflammatory markers - ferritin, Ddimer, CRP, LDH -Continue ceftriaxone 2 gm IV qday and azithromycin 500 mg qday -Anticoagulation per hospital protocol -Proning as able Thank you for the consult, we will continue to follow. Lay Finch MD [facility] O: [phone] F: [phone] Subjective Date of service: 03/13/21 Principal diagnosis: Ac. hypoxemic resp. failure; Septic Shock; COVID-19 Pneumonia; VTE; NSTEMI Interval history: Afebrile, white count decreasing from spike yesterday. Cultures remain negative. Objective - Exam Narrative Exam: Physical exam deferred to reduce risk of transmission of COVID-19. Please refer to primary team's note. - Constitutional Vitals: Vital Signs Temp Pulse Resp BP Pulse Ox 99.1 F 68 20 123/52 96 03/13/21 08:43 03/13/21 11:44 03/13/21 11:40 03/13/21 11:44 03/13/21 11:44 Temperature -Last 24 Hours Temperature 99.1 F Temperature 99.6 F Temperature 99.8 F Temperature 99.4 F Temperature 99.2 F Temperature 99.0 F - Labs CBC & Chem 7: 03/13/21 04:00 03/13/21 04:00 Labs: Abnormal lab results 03/12/21 03/12/21 03/12/21 Range/Units 13:02 17:11 23:32 WBC (4.5-11.0) K/mm3 Heparin Anti-Xa Level (0.3-0.7) U.I./ml ABG pH (7.320-7.450) POC ABG pO2 (83-108) mmHg ABG Hemoglobin (12.0-17.5) ABG Glucose (65-95) mg/dL Carboxyhemoglobin (0.5-1.5) BUN (7-17) mg/dL Creatinine (0.6-1.2) mg/dL Glucose (65-100) mg/dL POC Glucose 345 H 383 H 282 H (70-105) mg/dL Arterial Blood Glucose (65-95) mg/dL Arterial Blood Ionized Calcium (4.6-5.3) mg/dL 03/13/21 03/13/21 03/13/21 Range/Units 04:00 04:00 04:00 WBC 32.9 H (4.5-11.0) K/mm3 Heparin Anti-Xa Level 0.29 L (0.3-0.7) U.I./ml ABG pH (7.320-7.450) POC ABG pO2 (83-108) mmHg ABG Hemoglobin (12.0-17.5) ABG Glucose (65-95) mg/dL Carboxyhemoglobin (0.5-1.5) BUN 18 H (7-17) mg/dL Creatinine 0.4 L (0.6-1.2) mg/dL Glucose 316 H (65-100) mg/dL POC Glucose (70-105) mg/dL Arterial Blood Glucose (65-95) mg/dL Arterial Blood Ionized Calcium (4.6-5.3) mg/dL 03/13/21 03/13/21 Range/Units 05:28 05:58 WBC (4.5-11.0) K/mm3 Heparin Anti-Xa Level (0.3-0.7) U.I./ml ABG pH 7.465 H (7.320-7.450) POC ABG pO2 79.5 L (83-108) mmHg ABG Hemoglobin 10.6 L (12.0-17.5) ABG Glucose 319 H (65-95) mg/dL Carboxyhemoglobin 0.4 L (0.5-1.5) BUN (7-17) mg/dL Creatinine (0.6-1.2) mg/dL Glucose (65-100) mg/dL POC Glucose 318 H (70-105) mg/dL Arterial Blood Glucose 319 H (65-95) mg/dL Arterial Blood Ionized Calcium 4.5 L (4.6-5.3) mg/dL
--- NOTE | 2021-03-13 14:41 | Progress Note ---
Assessment and Plan Acute hypoxemic respiratory failure on MVS Severe sepsis with shock Bilateral pneumonia COVID-19 infection Obesity Bilateral pulmonary emboli Leukocytosis Thrombocytopenia Elevated serum inflammatory markers to include D-dimer and LDH Metabolic acidosis Lactic acidosis Non-ST elevation myocardial infarction Oropharyngeal dysphagia - transition to AC mode - reduced set rate to 12/min - continue full anticoagulation re: VTE - continue care as below otherwise; - continue to wean supplemental oxygen for target O2 sat's > 92% acutely - continue Daily SAT and SBT assessment as tolerated - VAP bundle addressed - continue lung protective strategies - continue bronchodilators with pulmonary hygiene per RT - wean per pulmonary driven protocols otherwise - complete antiinfective's per ID rec's - continue accuchecks with glycemic control per SSI (While critically ill target blood glucose of 140-180 mg/dL; avoid hypoglycemia) - sedation prn for target RASS 0 to -1 - avoid nephrotoxins, renally dose all medications - continue to avoid benzodiazepine's, reduce the possibility of delirium - prn analgesia per CPOT score - Maintenance of sleep-wake cycle, avoid delirium - continue enteral nutritional support at goal rate as tolerated - G.I. & VTE prophylaxis - PT/OT/ROM exercises - continue mobility protocols for pressure ulcer prophylaxis - Monitor hemodynamics closely - continue other care per attending / other consultants - discharge planning ongoing concurrently COVID SPECIFIC INTERVENTIONS - Remdesivir as per ID/Pulmonary developed protocols (ordered) - continue systemic steroids for severe COVID-19 infection empirically 9Decadron 8 mg IV daily) - follow repeat COVID tests results - zinc and vitamin C supplementation - Monitor inflammatory markers per facility protocol - ferritin, Ddimer, CRP - therapeutic anticoagulation per system Protocol based on d-dimer and clinical considerations (full re: DVT / P.E.) - Continue contact and airborne isolation .... Re-evaluate in am & prn CONDITION: CRITICAL PROGNOSIS: GUARDED CODE STATUS: FULL CODE The high probability of a clinically significant, sudden or life-threatening deterioration of the [respiratory, cardiovascular & neurologic] system(s) required my full and direct attention, intervention and personal management. The aggregate critical care time was [34] minutes without overlap. Time includes spent on; [x] Data Review and interpretation [x] Patient assessment and monitoring of vital signs [x] Documentation [x] Medication orders and management Subjective Date of service: 03/13/21 Principal diagnosis: Ac. hypoxemic resp. failure; Septic Shock; COVID-19 Pneumonia; VTE; NSTEMI Interval history: Patient is seen today for: Acute hypoxemic respiratory failure; Severe sepsis with shock; Bilateral pneumonia; COVID-19 infection; Bilateral pulmonary emboli; Thrombocytopenia; NSTEMI Seen and examined at bedside; 24hour events reviewed; nursing and respiratory care staff consulted; no adverse overnight events reported to me; resting in bed; remains on MVS; oxygenation and ventilation slowly improving; no emesis or overt aspiration; no gross bleeding Objective Vital Signs - 12hr 03/13/21 03/13/21 03/13/21 02:45 03:00 03:15 Temperature Pulse Rate 59 L 54 L 82 Respiratory 20 20 21 Rate Blood Pressure 116/58 112/49 109/58 O2 Sat by Pulse 95 94 97 Oximetry 03/13/21 03/13/21 03/13/21 03:30 03:45 04:00 Temperature 99.6 F Pulse Rate 75 80 54 L Respiratory 22 20 20 Rate Blood Pressure 145/59 140/59 101/52 O2 Sat by Pulse 98 98 97 Oximetry 03/13/21 03/13/21 03/13/21 04:15 04:31 04:45 Temperature Pulse Rate 70 61 63 Respiratory 25 H 20 20 Rate Blood Pressure 154/78 123/59 121/57 O2 Sat by Pulse 97 94 97 Oximetry 03/13/21 03/13/21 03/13/21 05:00 05:15 05:30 Temperature Pulse Rate 56 L 55 L 54 L Respiratory 20 20 20 Rate Blood Pressure 108/56 106/54 122/63 O2 Sat by Pulse 96 97 95 Oximetry 03/13/21 03/13/21 03/13/21 05:45 06:01 06:15 Temperature Pulse Rate 53 L 58 L 57 L Respiratory 20 20 20 Rate Blood Pressure 101/52 118/60 112/52 O2 Sat by Pulse 97 97 97 Oximetry 03/13/21 03/13/21 03/13/21 06:31 06:45 07:00 Temperature Pulse Rate 60 58 L 80 Respiratory 20 20 21 Rate Blood Pressure 132/55 114/52 134/70 O2 Sat by Pulse 98 98 99 Oximetry 03/13/21 03/13/21 03/13/21 07:15 07:30 07:45 Temperature Pulse Rate 85 68 63 Respiratory 19 21 21 Rate Blood Pressure 152/79 148/67 138/66 O2 Sat by Pulse 99 99 99 Oximetry 03/13/21 03/13/21 03/13/21 08:00 08:15 08:21 Temperature Pulse Rate 80 62 63 Respiratory 19 20 21 Rate Blood Pressure 159/73 155/65 155/65 O2 Sat by Pulse 97 97 96 Oximetry 03/13/21 03/13/21 03/13/21 08:41 08:43 09:00 Temperature 99.1 F Pulse Rate 81 74 Respiratory 19 20 Rate Blood Pressure 140/61 159/73 O2 Sat by Pulse 98 99 Oximetry 03/13/21 03/13/21 03/13/21 09:21 09:41 10:00 Temperature Pulse Rate 63 66 60 Respiratory 21 19 20 Rate Blood Pressure 140/61 128/68 112/49 O2 Sat by Pulse 96 96 95 Oximetry 03/13/21 03/13/21 03/13/21 10:21 10:41 11:00 Temperature Pulse Rate 73 59 L 55 L Respiratory 21 20 20 Rate Blood Pressure 112/49 108/36 112/51 O2 Sat by Pulse 93 93 Oximetry 03/13/21 03/13/21 03/13/21 11:21 11:40 11:44 Temperature Pulse Rate 56 L 63 68 Respiratory 20 20 Rate Blood Pressure 100/45 123/52 123/52 O2 Sat by Pulse 95 93 96 Oximetry 03/13/21 12:54 Temperature 99.2 F Pulse Rate Respiratory Rate Blood Pressure O2 Sat by Pulse Oximetry Constitutional: appears uncomfortable, other (middle aged obese female with mildly increased respiratory effort at rest on MVS) Eyes: non-icteric ENT: oropharynx moist, other (ETT 24 cm ZULEMA) Neck: supple, no lymphadenopathy, other (large circumference) Effort: mildly labored Ascultation: Bilateral: rales (bases) Percussion: Bilateral: not dull Cardiovascular: regular rate and rhythm Gastrointestinal: normoactive bowel sounds, soft, non-tender, non-distended (protuberant) Integumentary: normal Extremities: no cyanosis, no edema, pink and warm, pulses normal Neurologic: non-focal exam (grossly), pupils equal and round, CN II-XII normal, motor strength normal and, other (sedated) Psychiatric: other (unable to assess re: sedation) CBC and BMP: 03/14/21 08:35 03/14/21 08:35 ABG, PT/INR, D-dimer: ABG ABG pH 7.465 (7.320-7.450) H 03/13/21 05:58 POC ABG pCO2 39.4 mmHg (32.0-48.0) 03/13/21 05:58 ABG pCO2 39.5 mm Hg 03/07/21 Unknown POC ABG pO2 79.5 mmHg (83-108) L 03/13/21 05:58 ABG pO2 62.6 mm Hg (80.0-90.0) L 03/07/21 Unknown POC ABG HCO3 27.7 03/13/21 05:58 ABG O2 Saturation 95.6 (0-100) 03/13/21 05:58 PT/INR, D-dimer PT 18.5 Sec. (12.2-14.9) H 03/08/21 07:55 INR 1.49 (0.87-1.13) H 03/08/21 07:55 D-Dimer > 14198 ng/mlDDU (0-234) H 03/07/21 21:28 Abnormal lab findings: Abnormal Labs 03/07/21 03/07/21 03/07/21 13:00 20:31 20:31 WBC RBC Hgb Hct RDW Plt Count Seg Neuts % (Manual) Lymphocytes % (Manual) Nucleated RBC % Seg Neutrophils # Man Lymphocytes # (Manual) Monocytes # (Manual) PT INR APTT D-Dimer > 21807 H Heparin Anti-Xa Level ABG pH POC ABG pCO2 POC ABG pO2 ABG pO2 ABG O2 Saturation ABG Base Excess ABG Hemoglobin ABG Oxyhemoglobin ABG Potassium ABG Chloride ABG Glucose Oxyhemoglobin Carboxyhemoglobin Sodium 133 L Chloride 94.6 L Carbon Dioxide 17 L BUN 22 H Creatinine Glucose 309 H POC Glucose Lactic Acid 5.10 H* Calcium Lactate Dehydrogenase Troponin T 0.085 H C-Reactive Protein Total Protein Albumin 3.5 L Triglycerides 213 H HDL Cholesterol 34 L Arterial Blood Glucose Arterial Blood Ionized Calcium Ur Specific [place] Coronavirus (PCR) 03/07/21 03/07/21 03/07/21 20:31 21:04 21:28 WBC 31.6 H RBC Hgb Hct RDW 15.3 H Plt Count Seg Neuts % (Manual) 73.0 H Lymphocytes % (Manual) 11.5 L Nucleated RBC % 7.0 H Seg Neutrophils # Man 23.1 H Lymphocytes # (Manual) Monocytes # (Manual) 1.7 H PT INR APTT D-Dimer > 69748 H Heparin Anti-Xa Level ABG pH POC ABG pCO2 POC ABG pO2 ABG pO2 ABG O2 Saturation ABG Base Excess ABG Hemoglobin ABG Oxyhemoglobin ABG Potassium ABG Chloride ABG Glucose Oxyhemoglobin Carboxyhemoglobin Sodium Chloride Carbon Dioxide BUN Creatinine Glucose 301 H POC Glucose Lactic Acid Calcium Lactate Dehydrogenase 1259 H Troponin T C-Reactive Protein 25.50 H Total Protein Albumin Triglycerides HDL Cholesterol Arterial Blood Glucose Arterial Blood Ionized Calcium Ur Specific [place] Coronavirus (PCR) 03/07/21 03/07/21 03/07/21 21:28 22:48 Unknown WBC RBC Hgb Hct RDW Plt Count Seg Neuts % (Manual) Lymphocytes % (Manual) Nucleated RBC % Seg Neutrophils # Man Lymphocytes # (Manual) Monocytes # (Manual) PT INR APTT D-Dimer Heparin Anti-Xa Level ABG pH POC ABG pCO2 POC ABG pO2 ABG pO2 ABG O2 Saturation ABG Base Excess ABG Hemoglobin ABG Oxyhemoglobin ABG Potassium ABG Chloride ABG Glucose Oxyhemoglobin Carboxyhemoglobin Sodium Chloride Carbon Dioxide BUN Creatinine Glucose POC Glucose Lactic Acid 6.00 H* 3.40 H* Calcium Lactate Dehydrogenase Troponin T C-Reactive Protein Total Protein Albumin Triglycerides HDL Cholesterol Arterial Blood Glucose Arterial Blood Ionized Calcium Ur Specific [place] Coronavirus (PCR) Positive A 03/07/21 03/08/21 03/08/21 Unknown 05:51 06:18 WBC 27.5 H RBC Hgb Hct RDW Plt Count 108 L Seg Neuts % (Manual) 85.0 H Lymphocytes % (Manual) 1.0 L Nucleated RBC % 7.0 H Seg Neutrophils # Man 23.4 H Lymphocytes # (Manual) 0.3 L Monocytes # (Manual) PT INR APTT D-Dimer Heparin Anti-Xa Level ABG pH 7.338 L POC ABG pCO2 POC ABG pO2 ABG pO2 62.6 L ABG O2 Saturation 89.1 L ABG Base Excess -4.7 L ABG Hemoglobin ABG Oxyhemoglobin ABG Potassium ABG Chloride ABG Glucose Oxyhemoglobin 87.3 L Carboxyhemoglobin Sodium Chloride Carbon Dioxide BUN Creatinine Glucose POC Glucose Lactic Acid Calcium Lactate Dehydrogenase Troponin T C-Reactive Protein Total Protein Albumin Triglycerides HDL Cholesterol Arterial Blood Glucose Arterial Blood Ionized Calcium Ur Specific [place] > 1.050 H Coronavirus (PCR) 03/08/21 03/08/21 03/08/21 06:18 06:18 07:29 WBC RBC Hgb Hct RDW Plt Count Seg Neuts % (Manual) Lymphocytes % (Manual) Nucleated RBC % Seg Neutrophils # Man Lymphocytes # (Manual) Monocytes # (Manual) PT 20.3 H INR 1.69 H APTT D-Dimer Heparin Anti-Xa Level ABG pH POC ABG pCO2 POC ABG pO2 ABG pO2 ABG O2 Saturation ABG Base Excess ABG Hemoglobin ABG Oxyhemoglobin ABG Potassium ABG Chloride ABG Glucose Oxyhemoglobin Carboxyhemoglobin Sodium Chloride Carbon Dioxide BUN 21 H Creatinine Glucose 188 H POC Glucose 192 H Lactic Acid Calcium 6.8 L D Lactate Dehydrogenase Troponin T C-Reactive Protein Total Protein Albumin Triglycerides HDL Cholesterol Arterial Blood Glucose Arterial Blood Ionized Calcium Ur Specific [place] Coronavirus (PCR) 03/08/21 03/08/21 03/08/21 07:55 08:06 11:35 WBC RBC Hgb Hct RDW Plt Count Seg Neuts % (Manual) Lymphocytes % (Manual) Nucleated RBC % Seg Neutrophils # Man Lymphocytes # (Manual) Monocytes # (Manual) PT 18.5 H INR 1.49 H APTT 113.5 H* D-Dimer Heparin Anti-Xa Level ABG pH 7.311 L POC ABG pCO2 POC ABG pO2 ABG pO2 ABG O2 Saturation ABG Base Excess ABG Hemoglobin 11.8 L ABG Oxyhemoglobin ABG Potassium ABG Chloride 111.0 H ABG Glucose 176 H Oxyhemoglobin Carboxyhemoglobin 0.4 L Sodium Chloride Carbon Dioxide BUN Creatinine Glucose POC Glucose 142 H Lactic Acid Calcium Lactate Dehydrogenase Troponin T C-Reactive Protein Total Protein Albumin Triglycerides HDL Cholesterol Arterial Blood Glucose 176 H Arterial Blood Ionized Calcium 4.1 L Ur Specific [place] Coronavirus (PCR) 03/08/21 03/08/21 03/08/21 13:00 16:59 21:00 WBC RBC Hgb Hct RDW Plt Count Seg Neuts % (Manual) Lymphocytes % (Manual) Nucleated RBC % Seg Neutrophils # Man Lymphocytes # (Manual) Monocytes # (Manual) PT INR APTT D-Dimer Heparin Anti-Xa Level 0.22 L ABG pH POC ABG pCO2 30.1 L POC ABG pO2 74.9 L ABG pO2 ABG O2 Saturation ABG Base Excess ABG Hemoglobin 10.0 L ABG Oxyhemoglobin 93.8 L ABG Potassium ABG Chloride 113.0 H ABG Glucose 250 H Oxyhemoglobin Carboxyhemoglobin 0.3 L Sodium Chloride Carbon Dioxide BUN Creatinine Glucose POC Glucose 196 H Lactic Acid Calcium Lactate Dehydrogenase Troponin T C-Reactive Protein Total Protein Albumin Triglycerides HDL Cholesterol Arterial Blood Glucose 250 H Arterial Blood Ionized Calcium 4.0 L Ur Specific [place] Coronavirus (PCR) 03/08/21 03/08/21 03/09/21 21:19 21:30 03:14 WBC RBC Hgb Hct RDW Plt Count Seg Neuts % (Manual) Lymphocytes % (Manual) Nucleated RBC % Seg Neutrophils # Man Lymphocytes # (Manual) Monocytes # (Manual) PT INR APTT D-Dimer Heparin Anti-Xa Level 0.16 L ABG pH POC ABG pCO2 31.0 L POC ABG pO2 80.4 L ABG pO2 ABG O2 Saturation ABG Base Excess ABG Hemoglobin 9.4 L ABG Oxyhemoglobin ABG Potassium ABG Chloride 114.0 H ABG Glucose 249 H Oxyhemoglobin Carboxyhemoglobin 0.3 L Sodium Chloride Carbon Dioxide BUN Creatinine Glucose POC Glucose 250 H Lactic Acid Calcium Lactate Dehydrogenase Troponin T C-Reactive Protein Total Protein Albumin Triglycerides HDL Cholesterol Arterial Blood Glucose 249 H Arterial Blood Ionized Calcium 4.1 L Ur Specific [place] Coronavirus (PCR) 03/09/21 03/09/21 03/09/21 05:26 06:31 11:25 WBC RBC Hgb Hct RDW Plt Count Seg Neuts % (Manual) Lymphocytes % (Manual) Nucleated RBC % Seg Neutrophils # Man Lymphocytes # (Manual) Monocytes # (Manual) PT INR APTT D-Dimer Heparin Anti-Xa Level ABG pH POC ABG pCO2 POC ABG pO2 ABG pO2 ABG O2 Saturation ABG Base Excess ABG Hemoglobin ABG Oxyhemoglobin ABG Potassium ABG Chloride ABG Glucose Oxyhemoglobin Carboxyhemoglobin Sodium Chloride 110.6 H Carbon Dioxide 20 L BUN 22 H Creatinine Glucose 244 H POC Glucose 217 H 235 H Lactic Acid Calcium 6.7 L Lactate Dehydrogenase Troponin T C-Reactive Protein Total Protein 5.6 L D Albumin 2.5 L Triglycerides HDL Cholesterol Arterial Blood Glucose Arterial Blood Ionized Calcium Ur Specific [place] Coronavirus (PCR) 03/09/21 03/09/21 03/09/21 12:10 17:29 23:13 WBC 24.1 H RBC 3.29 L Hgb 9.3 L Hct 28.7 L RDW 15.5 H Plt Count Seg Neuts % (Manual) 84.0 H Lymphocytes % (Manual) 1.0 L Nucleated RBC % 3.0 H Seg Neutrophils # Man 20.2 H Lymphocytes # (Manual) 0.2 L Monocytes # (Manual) PT INR APTT D-Dimer Heparin Anti-Xa Level ABG pH POC ABG pCO2 POC ABG pO2 ABG pO2 ABG O2 Saturation ABG Base Excess ABG Hemoglobin ABG Oxyhemoglobin ABG Potassium ABG Chloride ABG Glucose Oxyhemoglobin Carboxyhemoglobin Sodium Chloride Carbon Dioxide BUN Creatinine Glucose POC Glucose 279 H 284 H Lactic Acid Calcium Lactate Dehydrogenase Troponin T C-Reactive Protein Total Protein Albumin Triglycerides HDL Cholesterol Arterial Blood Glucose Arterial Blood Ionized Calcium Ur Specific [place] Coronavirus (PCR) 03/10/21 03/10/21 03/10/21 01:12 03:29 04:32 WBC 22.6 H 21.5 H RBC 3.31 L 3.33 L Hgb 9.3 L 9.4 L Hct 28.9 L 28.9 L RDW 15.3 H Plt Count Seg Neuts % (Manual) 89.0 H Lymphocytes % (Manual) 6.0 L Nucleated RBC % Seg Neutrophils # Man 20.1 H Lymphocytes # (Manual) Monocytes # (Manual) 1.1 H PT INR APTT D-Dimer Heparin Anti-Xa Level ABG pH POC ABG pCO2 26.7 L POC ABG pO2 148.7 H ABG pO2 ABG O2 Saturation ABG Base Excess ABG Hemoglobin 9.5 L ABG Oxyhemoglobin 98.3 H ABG Potassium 4.7 H ABG Chloride 114.0 H ABG Glucose 263 H Oxyhemoglobin Carboxyhemoglobin 0.3 L Sodium Chloride Carbon Dioxide BUN Creatinine Glucose POC Glucose Lactic Acid Calcium Lactate Dehydrogenase Troponin T C-Reactive Protein Total Protein Albumin Triglycerides HDL Cholesterol Arterial Blood Glucose 263 H Arterial Blood Ionized Calcium 4.4 L Ur Specific [place] Coronavirus (PCR) 03/10/21 03/10/21 03/10/21 04:32 04:32 05:26 WBC RBC Hgb Hct RDW Plt Count Seg Neuts % (Manual) Lymphocytes % (Manual) Nucleated RBC % Seg Neutrophils # Man Lymphocytes # (Manual) Monocytes # (Manual) PT INR APTT D-Dimer Heparin Anti-Xa Level ABG pH POC ABG pCO2 POC ABG pO2 ABG pO2 ABG O2 Saturation ABG Base Excess ABG Hemoglobin ABG Oxyhemoglobin ABG Potassium ABG Chloride ABG Glucose Oxyhemoglobin Carboxyhemoglobin Sodium Chloride 112.2 H 111.0 H Carbon Dioxide 21 L 21 L BUN 24 H 25 H Creatinine Glucose 262 H 258 H POC Glucose 246 H Lactic Acid Calcium 7.5 L 7.3 L Lactate Dehydrogenase Troponin T C-Reactive Protein Total Protein 5.8 L Albumin 2.8 L Triglycerides HDL Cholesterol Arterial Blood Glucose Arterial Blood Ionized Calcium Ur Specific [place] Coronavirus (PCR) 03/10/21 03/10/21 03/10/21 11:50 17:18 21:39 WBC RBC Hgb Hct RDW Plt Count Seg Neuts % (Manual) Lymphocytes % (Manual) Nucleated RBC % Seg Neutrophils # Man Lymphocytes # (Manual) Monocytes # (Manual) PT INR APTT D-Dimer Heparin Anti-Xa Level ABG pH POC ABG pCO2 POC ABG pO2 ABG pO2 ABG O2 Saturation ABG Base Excess ABG Hemoglobin ABG Oxyhemoglobin ABG Potassium ABG Chloride ABG Glucose Oxyhemoglobin Carboxyhemoglobin Sodium Chloride Carbon Dioxide BUN Creatinine Glucose POC Glucose 234 H 248 H 242 H Lactic Acid Calcium Lactate Dehydrogenase Troponin T C-Reactive Protein Total Protein Albumin Triglycerides HDL Cholesterol Arterial Blood Glucose Arterial Blood Ionized Calcium Ur Specific [place] Coronavirus (PCR) 03/10/21 03/11/21 03/11/21 22:39 02:12 04:40 WBC RBC Hgb Hct RDW Plt Count Seg Neuts % (Manual) Lymphocytes % (Manual) Nucleated RBC % Seg Neutrophils # Man Lymphocytes # (Manual) Monocytes # (Manual) PT INR APTT D-Dimer Heparin Anti-Xa Level ABG pH 7.481 H POC ABG pCO2 27.3 L POC ABG pO2 180.2 H ABG pO2 ABG O2 Saturation ABG Base Excess ABG Hemoglobin 11.2 L ABG Oxyhemoglobin 99.1 H ABG Potassium ABG Chloride 111.0 H ABG Glucose 311 H Oxyhemoglobin Carboxyhemoglobin 0.2 L Sodium Chloride 108.6 H Carbon Dioxide 21 L BUN 23 H Creatinine Glucose 276 H POC Glucose 245 H Lactic Acid Calcium 8.0 L Lactate Dehydrogenase Troponin T C-Reactive Protein Total Protein 6.1 L Albumin 3.2 L Triglycerides HDL Cholesterol Arterial Blood Glucose 311 H Arterial Blood Ionized Calcium 4.5 L Ur Specific [place] Coronavirus (PCR) 03/11/21 03/11/21 03/11/21 04:55 12:35 18:15 WBC RBC Hgb Hct RDW Plt Count Seg Neuts % (Manual) Lymphocytes % (Manual) Nucleated RBC % Seg Neutrophils # Man Lymphocytes # (Manual) Monocytes # (Manual) PT INR APTT D-Dimer Heparin Anti-Xa Level ABG pH POC ABG pCO2 POC ABG pO2 ABG pO2 ABG O2 Saturation ABG Base Excess ABG Hemoglobin ABG Oxyhemoglobin ABG Potassium ABG Chloride ABG Glucose Oxyhemoglobin Carboxyhemoglobin Sodium Chloride Carbon Dioxide BUN Creatinine Glucose POC Glucose 260 H 273 H 283 H Lactic Acid Calcium Lactate Dehydrogenase Troponin T C-Reactive Protein Total Protein Albumin Triglycerides HDL Cholesterol Arterial Blood Glucose Arterial Blood Ionized Calcium Ur Specific [place] Coronavirus (PCR) 03/11/21 03/12/21 03/12/21 23:17 04:00 05:39 WBC RBC Hgb Hct RDW Plt Count Seg Neuts % (Manual) Lymphocytes % (Manual) Nucleated RBC % Seg Neutrophils # Man Lymphocytes # (Manual) Monocytes # (Manual) PT INR APTT D-Dimer Heparin Anti-Xa Level ABG pH 7.463 H POC ABG pCO2 30.9 L POC ABG pO2 ABG pO2 ABG O2 Saturation ABG Base Excess ABG Hemoglobin 10.7 L ABG Oxyhemoglobin ABG Potassium ABG Chloride ABG Glucose 310 H Oxyhemoglobin Carboxyhemoglobin 0.3 L Sodium Chloride Carbon Dioxide BUN Creatinine Glucose POC Glucose 280 H 278 H Lactic Acid Calcium Lactate Dehydrogenase Troponin T C-Reactive Protein Total Protein Albumin Triglycerides HDL Cholesterol Arterial Blood Glucose 310 H Arterial Blood Ionized Calcium Ur Specific [place] Coronavirus (PCR) 03/12/21 03/12/21 03/12/21 05:52 05:52 13:02 WBC 41.7 H* RBC Hgb Hct RDW Plt Count Seg Neuts % (Manual) Lymphocytes % (Manual) Nucleated RBC % Seg Neutrophils # Man Lymphocytes # (Manual) Monocytes # (Manual) PT INR APTT D-Dimer Heparin Anti-Xa Level ABG pH POC ABG pCO2 POC ABG pO2 ABG pO2 ABG O2 Saturation ABG Base Excess ABG Hemoglobin ABG Oxyhemoglobin ABG Potassium ABG Chloride ABG Glucose Oxyhemoglobin Carboxyhemoglobin Sodium Chloride 107.5 H Carbon Dioxide BUN Creatinine 0.5 L Glucose 297 H POC Glucose 345 H Lactic Acid Calcium 8.1 L Lactate Dehydrogenase Troponin T C-Reactive Protein Total Protein Albumin Triglycerides HDL Cholesterol Arterial Blood Glucose Arterial Blood Ionized Calcium Ur Specific [place] Coronavirus (PCR) 03/12/21 03/12/21 03/13/21 17:11 23:32 04:00 WBC RBC Hgb Hct RDW Plt Count Seg Neuts % (Manual) Lymphocytes % (Manual) Nucleated RBC % Seg Neutrophils # Man Lymphocytes # (Manual) Monocytes # (Manual) PT INR APTT D-Dimer Heparin Anti-Xa Level 0.29 L ABG pH POC ABG pCO2 POC ABG pO2 ABG pO2 ABG O2 Saturation ABG Base Excess ABG Hemoglobin ABG Oxyhemoglobin ABG Potassium ABG Chloride ABG Glucose Oxyhemoglobin Carboxyhemoglobin Sodium Chloride Carbon Dioxide BUN Creatinine Glucose POC Glucose 383 H 282 H Lactic Acid Calcium Lactate Dehydrogenase Troponin T C-Reactive Protein Total Protein Albumin Triglycerides HDL Cholesterol Arterial Blood Glucose Arterial Blood Ionized Calcium Ur Specific [place] Coronavirus (PCR) 03/13/21 03/13/21 03/13/21 04:00 04:00 05:28 WBC 32.9 H RBC Hgb Hct RDW Plt Count Seg Neuts % (Manual) Lymphocytes % (Manual) Nucleated RBC % Seg Neutrophils # Man Lymphocytes # (Manual) Monocytes # (Manual) PT INR APTT D-Dimer Heparin Anti-Xa Level ABG pH POC ABG pCO2 POC ABG pO2 ABG pO2 ABG O2 Saturation ABG Base Excess ABG Hemoglobin ABG Oxyhemoglobin ABG Potassium ABG Chloride ABG Glucose Oxyhemoglobin Carboxyhemoglobin Sodium Chloride Carbon Dioxide BUN 18 H Creatinine 0.4 L Glucose 316 H POC Glucose 318 H Lactic Acid Calcium Lactate Dehydrogenase Troponin T C-Reactive Protein Total Protein Albumin Triglycerides HDL Cholesterol Arterial Blood Glucose Arterial Blood Ionized Calcium Ur Specific [place] Coronavirus (PCR) 03/13/21 05:58 WBC RBC Hgb Hct RDW Plt Count Seg Neuts % (Manual) Lymphocytes % (Manual) Nucleated RBC % Seg Neutrophils # Man Lymphocytes # (Manual) Monocytes # (Manual) PT INR APTT D-Dimer Heparin Anti-Xa Level ABG pH 7.465 H POC ABG pCO2 POC ABG pO2 79.5 L ABG pO2 ABG O2 Saturation ABG Base Excess ABG Hemoglobin 10.6 L ABG Oxyhemoglobin ABG Potassium ABG Chloride ABG Glucose 319 H Oxyhemoglobin Carboxyhemoglobin 0.4 L Sodium Chloride Carbon Dioxide BUN Creatinine Glucose POC Glucose Lactic Acid Calcium Lactate Dehydrogenase Troponin T C-Reactive Protein Total Protein Albumin Triglycerides HDL Cholesterol Arterial Blood Glucose 319 H Arterial Blood Ionized Calcium 4.5 L Ur Specific [place] Coronavirus (PCR) Chest x-ray: other (none today) Allied health notes reviewed: nursing
[2021-03-13] MEDS ORDERED: MAGNESIUM CITRATE 300 ML ORAL LIQD PO ONE (15:00)
[2021-03-13] MEDS ORDERED: hydrALAZINE 20 MG/1 ML INJ ONE (16:30)
[2021-03-14] MEDS: HEPARIN/ 0.45% NACL DRIP 25,000 UNIT/500 ML BAG IV SCH ×2 (04:35→17:40)
[2021-03-14] MEDS: INSULIN LISPRO 100 UNIT/ML SUB-Q SCH ×3 (05:27→18:37)
[2021-03-14 08:56] LABS: Hematocrit 34.6 % (30.3-42.9); Hemoglobin 11.2 gm/dl (10.1-14.3); Mean Corpuscular HGB Conc 32 % (30-34); Mean Corpuscular Volume 87 fl (79-97); Platelet Count 180 K/mm3 (140-440); Red Blood Count 3.97 M/mm3 (3.65-5.03); Red Cell Distribution Width 15.4 % (13.2-15.2)
[2021-03-14 09:12] LABS: Blood Urea Nitrogen 19 mg/dL (7-17); Calcium 8.5 mg/dL (8.4-10.2); Hemolysis Index 37
[2021-03-14] MEDS: FAMOTIDINE 20 MG TAB PO SCH ×2 (09:15→22:51)
[2021-03-14] MEDS: TAMSULOSIN 0.4 MG CAP PO SCH (09:15)
[2021-03-14] MEDS: CHOLECALCIFEROL (VIT D3) 5,000 UNIT TAB PO SCH (09:15)
[2021-03-14] MEDS: fentaNYL DRIP Premix 2,000 MCG/100 ML BAG IV SCH ×2 (09:15→17:09)
[2021-03-14] MEDS: SENNOSIDES/DOCUSATE SODIUM 8.6/50 MG TAB FEEDTUBE SCH ×2 (09:15→22:51)
[2021-03-14] MEDS: ASCORBIC ACID 500 MG TAB PO SCH ×2 (09:16→22:51)
[2021-03-14 09:17] LABS: BUN/Creatinine Ratio 63
[2021-03-14] MEDS: dexAMETHasone 4 MG/ML VIAL IV SCH (09:17)
[2021-03-14] MEDS: ZINC SULFATE 220 MG CAP PO SCH (11:28)
[2021-03-14] MEDS ORDERED: INSULIN GLARGINE 100 UNITS/ML SUB-Q ONE (12:00)
--- NOTE | 2021-03-14 13:27 | Progress Note ---
Assessment and Plan Cultures: Blood culture no growth so far Covid PCR: Positive A/P: 45-year-old female no past medical history admitted with COVID-19 pneumonia and bilateral pulmonary emboli. #Severe COVID-19 pneumonia: Patient presented with 3 days of symptoms, chest x- ray with diffuse bilateral infiltrates, admission O2 sats 50% on room air. Inflammatory markers elevated #Acute hypoxemic respiratory failure: Likely secondary to COVID-19 infection. Currently on the vent #Bilateral pulmonary emboli: Anticoagulation per primary #Obesity: Associated with worse COVID-19 outcomes. Recs: -Dexamethasone 6 mg IV/PO daily for 10 days -Completed remdesivir -Actemra 03/09/2021 -Obtain q48-72h inflammatory markers - ferritin, Ddimer, CRP, LDH -Completed antibiotics today. white count improving, ongoing elevation may be due to steroids. -Anticoagulation per hospital protocol -Proning as able Thank you for the consult, we will continue to follow. Lay Finch MD [facility] O: [phone] F: [phone] Subjective Date of service: 03/14/21 Principal diagnosis: Ac. hypoxemic resp. failure; Septic Shock; COVID-19 Pneumonia; VTE; NSTEMI Interval history: Afebrile, white count 21.9 cultures all remain negative. Completed antibiotics today. Objective - Exam Narrative Exam: Physical exam deferred to reduce risk of transmission of COVID-19. Please refer to primary team's note. - Constitutional Vitals: Vital Signs Temp Pulse Resp BP Pulse Ox 98.7 F 67 18 148/66 95 03/14/21 12:00 03/14/21 12:36 03/14/21 12:00 03/14/21 12:36 03/14/21 12:36 Temperature -Last 24 Hours Temperature 98.7 F Temperature 98.5 F Temperature 99.8 F Temperature 99.9 F Temperature 99.8 F Temperature 98.7 F - Labs CBC & Chem 7: 03/14/21 08:35 03/14/21 08:35 Labs: Abnormal lab results 03/13/21 03/13/21 03/13/21 Range/Units 12:41 13:41 17:23 WBC (4.5-11.0) K/mm3 RDW (13.2-15.2) % D-Dimer (0-234) ng/mlDDU Heparin Anti-Xa Level (0.3-0.7) U.I./ml Sodium (137-145) mmol/L Chloride (98-107) mmol/L BUN (7-17) mg/dL Creatinine (0.6-1.2) mg/dL Glucose (65-100) mg/dL POC Glucose 304 H 342 H 336 H (70-105) mg/dL Ferritin (10.0-200.0) ng/mL Lactate Dehydrogenase (91-180) units/L 03/13/21 03/14/21 03/14/21 Range/Units 23:14 04:52 08:35 WBC 21.9 H (4.5-11.0) K/mm3 RDW 15.4 H (13.2-15.2) % D-Dimer (0-234) ng/mlDDU Heparin Anti-Xa Level (0.3-0.7) U.I./ml Sodium (137-145) mmol/L Chloride (98-107) mmol/L BUN (7-17) mg/dL Creatinine (0.6-1.2) mg/dL Glucose (65-100) mg/dL POC Glucose 257 H 266 H (70-105) mg/dL Ferritin (10.0-200.0) ng/mL Lactate Dehydrogenase (91-180) units/L 03/14/21 03/14/21 03/14/21 Range/Units 08:35 08:35 08:35 WBC (4.5-11.0) K/mm3 RDW (13.2-15.2) % D-Dimer 4053.87 H (0-234) ng/mlDDU Heparin Anti-Xa Level < 0.10 L (0.3-0.7) U.I./ml Sodium 131 L D (137-145) mmol/L Chloride 96.3 L (98-107) mmol/L BUN 19 H (7-17) mg/dL Creatinine 0.3 L (0.6-1.2) mg/dL Glucose 265 H (65-100) mg/dL POC Glucose (70-105) mg/dL Ferritin 209.5 H (10.0-200.0) ng/mL Lactate Dehydrogenase 768 H (91-180) units/L 03/14/21 Range/Units 11:49 WBC (4.5-11.0) K/mm3 RDW (13.2-15.2) % D-Dimer (0-234) ng/mlDDU Heparin Anti-Xa Level (0.3-0.7) U.I./ml Sodium (137-145) mmol/L Chloride (98-107) mmol/L BUN (7-17) mg/dL Creatinine (0.6-1.2) mg/dL Glucose (65-100) mg/dL POC Glucose 256 H (70-105) mg/dL Ferritin (10.0-200.0) ng/mL Lactate Dehydrogenase (91-180) units/L
--- NOTE | 2021-03-14 14:53 | Progress Note ---
Assessment and Plan Acute hypoxemic respiratory failure on MVS Severe sepsis with shock Bilateral pneumonia COVID-19 infection Obesity Bilateral pulmonary emboli Leukocytosis Thrombocytopenia Elevated serum inflammatory markers to include D-dimer and LDH Metabolic acidosis Lactic acidosis Non-ST elevation myocardial infarction Oropharyngeal dysphagia - transitioned to AC mode - begin SBT trial (16 p-supp and tolerating well so far) - ABG after 2 hours - keep set rate at 12/min - continue full anticoagulation re: VTE - continue care as below otherwise; - continue to wean supplemental oxygen for target O2 sat's > 92% acutely - continue Daily SAT and SBT assessment as tolerated - VAP bundle addressed - continue lung protective strategies - continue bronchodilators with pulmonary hygiene per RT - wean per pulmonary driven protocols otherwise - complete antiinfective's per ID rec's - continue accuchecks with glycemic control per SSI (While critically ill target blood glucose of 140-180 mg/dL; avoid hypoglycemia) - sedation prn for target RASS 0 to -1 - avoid nephrotoxins, renally dose all medications - continue to avoid benzodiazepine's, reduce the possibility of delirium - prn analgesia per CPOT score - Maintenance of sleep-wake cycle, avoid delirium - continue enteral nutritional support at goal rate as tolerated - G.I. & VTE prophylaxis - PT/OT/ROM exercises - continue mobility protocols for pressure ulcer prophylaxis - Monitor hemodynamics closely - continue other care per attending / other consultants - discharge planning ongoing concurrently COVID SPECIFIC INTERVENTIONS - Remdesivir as per ID/Pulmonary developed protocols (ordered) - continue systemic steroids for severe COVID-19 infection empirically 9Decadron 8 mg IV daily) - follow repeat COVID tests results - zinc and vitamin C supplementation - Monitor inflammatory markers per facility protocol - ferritin, Ddimer, CRP - therapeutic anticoagulation per system Protocol based on d-dimer and clinical considerations (full re: DVT / P.E.) - Continue contact and airborne isolation .... Re-evaluate in am & prn CONDITION: CRITICAL PROGNOSIS: GUARDED CODE STATUS: FULL CODE The high probability of a clinically significant, sudden or life-threatening deterioration of the [respiratory, cardiovascular & neurologic] system(s) r equired my full and direct attention, intervention and personal management. The aggregate critical care time was [32] minutes without overlap. Time includes spent on; [x] Data Review and interpretation [x] Patient assessment and monitoring of vital signs [x] Documentation [x] Medication orders and management Subjective Date of service: 03/14/21 Principal diagnosis: Ac. hypoxemic resp. failure; Septic Shock; COVID-19 Pneumonia; VTE; NSTEMI Interval history: Patient is seen today for: Acute hypoxemic respiratory failure; Severe sepsis with shock; Bilateral pneumonia; COVID-19 infection; Bilateral pulmonary emboli; Thrombocytopenia; NSTEMI Seen and examined at bedside; 24hour events reviewed; nursing and respiratory care staff consulted; no adverse overnight events reported to me; resting in bed; remains on MVS; oxygenation and ventilation improved; no emesis or overt aspiration; still delirious but a little more coherent during SAT's; no gross bleeding Objective Vital Signs - 12hr 03/14/21 03/14/21 03/14/21 03:00 03:20 03:22 Temperature 99.8 F H Pulse Rate 62 60 Respiratory 15 18 Rate Blood Pressure 110/43 110/40 O2 Sat by Pulse 95 97 Oximetry 03/14/21 03/14/21 03/14/21 03:40 04:00 04:20 Temperature Pulse Rate 57 L 57 L 54 L Respiratory 17 18 18 Rate Blood Pressure 105/41 100/41 100/41 O2 Sat by Pulse 96 96 96 Oximetry 03/14/21 03/14/21 03/14/21 04:40 05:00 05:20 Temperature Pulse Rate 52 L 61 58 L Respiratory 17 18 18 Rate Blood Pressure 95/41 94/48 108/45 O2 Sat by Pulse 96 96 96 Oximetry 03/14/21 03/14/21 03/14/21 05:40 05:48 06:00 Temperature Pulse Rate 56 L 58 L 57 L Respiratory 17 16 Rate Blood Pressure 108/45 97/37 89/44 O2 Sat by Pulse 98 96 94 Oximetry 03/14/21 03/14/21 03/14/21 06:20 06:40 07:00 Temperature Pulse Rate 75 59 L 58 L Respiratory 24 23 18 Rate Blood Pressure 135/70 111/61 121/38 O2 Sat by Pulse 93 93 93 Oximetry 03/14/21 03/14/21 03/14/21 07:20 07:40 07:54 Temperature Pulse Rate 75 64 59 L Respiratory 20 21 Rate Blood Pressure 121/38 113/47 143/64 O2 Sat by Pulse 91 92 95 Oximetry 03/14/21 03/14/21 03/14/21 08:00 08:20 08:40 Temperature 98.5 F Pulse Rate 72 66 66 Respiratory 16 22 23 Rate Blood Pressure 133/58 143/64 120/49 O2 Sat by Pulse 100 93 94 Oximetry 03/14/21 03/14/21 03/14/21 09:00 09:20 09:40 Temperature Pulse Rate 74 66 60 Respiratory 24 22 22 Rate Blood Pressure 120/49 128/53 149/53 O2 Sat by Pulse 94 95 94 Oximetry 03/14/21 03/14/21 03/14/21 10:00 10:20 10:40 Temperature Pulse Rate 58 L 66 82 Respiratory 18 24 22 Rate Blood Pressure 129/62 149/68 149/68 O2 Sat by Pulse 96 95 94 Oximetry 03/14/21 03/14/21 03/14/21 11:00 11:20 11:40 Temperature Pulse Rate 92 H 96 H 70 Respiratory 16 26 H 19 Rate Blood Pressure 129/62 161/82 172/79 O2 Sat by Pulse 94 92 92 Oximetry 03/14/21 03/14/21 03/14/21 12:00 12:20 12:36 Temperature 98.7 F Pulse Rate 62 80 67 Respiratory 18 22 Rate Blood Pressure 154/68 148/66 148/66 O2 Sat by Pulse 96 95 95 Oximetry 03/14/21 03/14/21 03/14/21 12:40 13:00 13:20 Temperature Pulse Rate 89 88 84 Respiratory 24 22 21 Rate Blood Pressure 163/72 170/83 158/79 O2 Sat by Pulse 97 97 97 Oximetry 03/14/21 03/14/21 13:40 14:00 Temperature Pulse Rate 81 81 Respiratory 23 15 Rate Blood Pressure 160/59 160/59 O2 Sat by Pulse 96 97 Oximetry Constitutional: appears uncomfortable, other (middle aged obese female with mildly increased respiratory effort at rest on MVS) Eyes: non-icteric ENT: oropharynx moist, other (ETT 24 cm ZULEMA) Neck: supple, no lymphadenopathy, other (large circumference) Effort: mildly labored Ascultation: Bilateral: rales (bases) Percussion: Bilateral: not dull Cardiovascular: regular rate and rhythm Gastrointestinal: normoactive bowel sounds, soft, non-tender, non-distended (protuberant) Integumentary: normal Extremities: no cyanosis, no edema, pink and warm, pulses normal Neurologic: non-focal exam (grossly), pupils equal and round, CN II-XII normal, motor strength normal and, other (sedated) Psychiatric: other (unable to assess re: sedation) CBC and BMP: 03/14/21 08:35 03/14/21 08:35 ABG, PT/INR, D-dimer: ABG ABG pH 7.465 (7.320-7.450) H 03/13/21 05:58 POC ABG pCO2 39.4 mmHg (32.0-48.0) 03/13/21 05:58 ABG pCO2 39.5 mm Hg 03/07/21 Unknown POC ABG pO2 79.5 mmHg (83-108) L 03/13/21 05:58 ABG pO2 62.6 mm Hg (80.0-90.0) L 03/07/21 Unknown POC ABG HCO3 27.7 03/13/21 05:58 ABG O2 Saturation 95.6 (0-100) 03/13/21 05:58 PT/INR, D-dimer PT 18.5 Sec. (12.2-14.9) H 03/08/21 07:55 INR 1.49 (0.87-1.13) H 03/08/21 07:55 D-Dimer 4053.87 ng/mlDDU (0-234) H 03/14/21 08:35 Abnormal lab findings: Abnormal Labs 03/07/21 03/07/21 03/07/21 13:00 20:31 20:31 WBC RBC Hgb Hct RDW Plt Count Seg Neuts % (Manual) Lymphocytes % (Manual) Nucleated RBC % Seg Neutrophils # Man Lymphocytes # (Manual) Monocytes # (Manual) PT INR APTT D-Dimer > 36558 H Heparin Anti-Xa Level ABG pH POC ABG pCO2 POC ABG pO2 ABG pO2 ABG O2 Saturation ABG Base Excess ABG Hemoglobin ABG Oxyhemoglobin ABG Potassium ABG Chloride ABG Glucose Oxyhemoglobin Carboxyhemoglobin Sodium 133 L Chloride 94.6 L Carbon Dioxide 17 L BUN 22 H Creatinine Glucose 309 H POC Glucose Lactic Acid 5.10 H* Calcium Ferritin Lactate Dehydrogenase Troponin T 0.085 H C-Reactive Protein Total Protein Albumin 3.5 L Triglycerides 213 H HDL Cholesterol 34 L Arterial Blood Glucose Arterial Blood Ionized Calcium Ur Specific [place] Coronavirus (PCR) 03/07/21 03/07/21 03/07/21 20:31 21:04 21:28 WBC 31.6 H RBC Hgb Hct RDW 15.3 H Plt Count Seg Neuts % (Manual) 73.0 H Lymphocytes % (Manual) 11.5 L Nucleated RBC % 7.0 H Seg Neutrophils # Man 23.1 H Lymphocytes # (Manual) Monocytes # (Manual) 1.7 H PT INR APTT D-Dimer > 20113 H Heparin Anti-Xa Level ABG pH POC ABG pCO2 POC ABG pO2 ABG pO2 ABG O2 Saturation ABG Base Excess ABG Hemoglobin ABG Oxyhemoglobin ABG Potassium ABG Chloride ABG Glucose Oxyhemoglobin Carboxyhemoglobin Sodium Chloride Carbon Dioxide BUN Creatinine Glucose 301 H POC Glucose Lactic Acid Calcium Ferritin Lactate Dehydrogenase 1259 H Troponin T C-Reactive Protein 25.50 H Total Protein Albumin Triglycerides HDL Cholesterol Arterial Blood Glucose Arterial Blood Ionized Calcium Ur Specific [place] Coronavirus (PCR) 03/07/21 03/07/21 03/07/21 21:28 22:48 Unknown WBC RBC Hgb Hct RDW Plt Count Seg Neuts % (Manual) Lymphocytes % (Manual) Nucleated RBC % Seg Neutrophils # Man Lymphocytes # (Manual) Monocytes # (Manual) PT INR APTT D-Dimer Heparin Anti-Xa Level ABG pH POC ABG pCO2 POC ABG pO2 ABG pO2 ABG O2 Saturation ABG Base Excess ABG Hemoglobin ABG Oxyhemoglobin ABG Potassium ABG Chloride ABG Glucose Oxyhemoglobin Carboxyhemoglobin Sodium Chloride Carbon Dioxide BUN Creatinine Glucose POC Glucose Lactic Acid 6.00 H* 3.40 H* Calcium Ferritin Lactate Dehydrogenase Troponin T C-Reactive Protein Total Protein Albumin Triglycerides HDL Cholesterol Arterial Blood Glucose Arterial Blood Ionized Calcium Ur Specific [place] Coronavirus (PCR) Positive A 03/07/21 03/08/21 03/08/21 Unknown 05:51 06:18 WBC 27.5 H RBC Hgb Hct RDW Plt Count 108 L Seg Neuts % (Manual) 85.0 H Lymphocytes % (Manual) 1.0 L Nucleated RBC % 7.0 H Seg Neutrophils # Man 23.4 H Lymphocytes # (Manual) 0.3 L Monocytes # (Manual) PT INR APTT D-Dimer Heparin Anti-Xa Level ABG pH 7.338 L POC ABG pCO2 POC ABG pO2 ABG pO2 62.6 L ABG O2 Saturation 89.1 L ABG Base Excess -4.7 L ABG Hemoglobin ABG Oxyhemoglobin ABG Potassium ABG Chloride ABG Glucose Oxyhemoglobin 87.3 L Carboxyhemoglobin Sodium Chloride Carbon Dioxide BUN Creatinine Glucose POC Glucose Lactic Acid Calcium Ferritin Lactate Dehydrogenase Troponin T C-Reactive Protein Total Protein Albumin Triglycerides HDL Cholesterol Arterial Blood Glucose Arterial Blood Ionized Calcium Ur Specific [place] > 1.050 H Coronavirus (PCR) 03/08/21 03/08/21 03/08/21 06:18 06:18 07:29 WBC RBC Hgb Hct RDW Plt Count Seg Neuts % (Manual) Lymphocytes % (Manual) Nucleated RBC % Seg Neutrophils # Man Lymphocytes # (Manual) Monocytes # (Manual) PT 20.3 H INR 1.69 H APTT D-Dimer Heparin Anti-Xa Level ABG pH POC ABG pCO2 POC ABG pO2 ABG pO2 ABG O2 Saturation ABG Base Excess ABG Hemoglobin ABG Oxyhemoglobin ABG Potassium ABG Chloride ABG Glucose Oxyhemoglobin Carboxyhemoglobin Sodium Chloride Carbon Dioxide BUN 21 H Creatinine Glucose 188 H POC Glucose 192 H Lactic Acid Calcium 6.8 L D Ferritin Lactate Dehydrogenase Troponin T C-Reactive Protein Total Protein Albumin Triglycerides HDL Cholesterol Arterial Blood Glucose Arterial Blood Ionized Calcium Ur Specific [place] Coronavirus (PCR) 03/08/21 03/08/21 03/08/21 07:55 08:06 11:35 WBC RBC Hgb Hct RDW Plt Count Seg Neuts % (Manual) Lymphocytes % (Manual) Nucleated RBC % Seg Neutrophils # Man Lymphocytes # (Manual) Monocytes # (Manual) PT 18.5 H INR 1.49 H APTT 113.5 H* D-Dimer Heparin Anti-Xa Level ABG pH 7.311 L POC ABG pCO2 POC ABG pO2 ABG pO2 ABG O2 Saturation ABG Base Excess ABG Hemoglobin 11.8 L ABG Oxyhemoglobin ABG Potassium ABG Chloride 111.0 H ABG Glucose 176 H Oxyhemoglobin Carboxyhemoglobin 0.4 L Sodium Chloride Carbon Dioxide BUN Creatinine Glucose POC Glucose 142 H Lactic Acid Calcium Ferritin Lactate Dehydrogenase Troponin T C-Reactive Protein Total Protein Albumin Triglycerides HDL Cholesterol Arterial Blood Glucose 176 H Arterial Blood Ionized Calcium 4.1 L Ur Specific [place] Coronavirus (PCR) 03/08/21 03/08/21 03/08/21 13:00 16:59 21:00 WBC RBC Hgb Hct RDW Plt Count Seg Neuts % (Manual) Lymphocytes % (Manual) Nucleated RBC % Seg Neutrophils # Man Lymphocytes # (Manual) Monocytes # (Manual) PT INR APTT D-Dimer Heparin Anti-Xa Level 0.22 L ABG pH POC ABG pCO2 30.1 L POC ABG pO2 74.9 L ABG pO2 ABG O2 Saturation ABG Base Excess ABG Hemoglobin 10.0 L ABG Oxyhemoglobin 93.8 L ABG Potassium ABG Chloride 113.0 H ABG Glucose 250 H Oxyhemoglobin Carboxyhemoglobin 0.3 L Sodium Chloride Carbon Dioxide BUN Creatinine Glucose POC Glucose 196 H Lactic Acid Calcium Ferritin Lactate Dehydrogenase Troponin T C-Reactive Protein Total Protein Albumin Triglycerides HDL Cholesterol Arterial Blood Glucose 250 H Arterial Blood Ionized Calcium 4.0 L Ur Specific [place] Coronavirus (PCR) 03/08/21 03/08/21 03/09/21 21:19 21:30 03:14 WBC RBC Hgb Hct RDW Plt Count Seg Neuts % (Manual) Lymphocytes % (Manual) Nucleated RBC % Seg Neutrophils # Man Lymphocytes # (Manual) Monocytes # (Manual) PT INR APTT D-Dimer Heparin Anti-Xa Level 0.16 L ABG pH POC ABG pCO2 31.0 L POC ABG pO2 80.4 L ABG pO2 ABG O2 Saturation ABG Base Excess ABG Hemoglobin 9.4 L ABG Oxyhemoglobin ABG Potassium ABG Chloride 114.0 H ABG Glucose 249 H Oxyhemoglobin Carboxyhemoglobin 0.3 L Sodium Chloride Carbon Dioxide BUN Creatinine Glucose POC Glucose 250 H Lactic Acid Calcium Ferritin Lactate Dehydrogenase Troponin T C-Reactive Protein Total Protein Albumin Triglycerides HDL Cholesterol Arterial Blood Glucose 249 H Arterial Blood Ionized Calcium 4.1 L Ur Specific [place] Coronavirus (PCR) 03/09/21 03/09/21 03/09/21 05:26 06:31 11:25 WBC RBC Hgb Hct RDW Plt Count Seg Neuts % (Manual) Lymphocytes % (Manual) Nucleated RBC % Seg Neutrophils # Man Lymphocytes # (Manual) Monocytes # (Manual) PT INR APTT D-Dimer Heparin Anti-Xa Level ABG pH POC ABG pCO2 POC ABG pO2 ABG pO2 ABG O2 Saturation ABG Base Excess ABG Hemoglobin ABG Oxyhemoglobin ABG Potassium ABG Chloride ABG Glucose Oxyhemoglobin Carboxyhemoglobin Sodium Chloride 110.6 H Carbon Dioxide 20 L BUN 22 H Creatinine Glucose 244 H POC Glucose 217 H 235 H Lactic Acid Calcium 6.7 L Ferritin Lactate Dehydrogenase Troponin T C-Reactive Protein Total Protein 5.6 L D Albumin 2.5 L Triglycerides HDL Cholesterol Arterial Blood Glucose Arterial Blood Ionized Calcium Ur Specific [place] Coronavirus (PCR) 03/09/21 03/09/21 03/09/21 12:10 17:29 23:13 WBC 24.1 H RBC 3.29 L Hgb 9.3 L Hct 28.7 L RDW 15.5 H Plt Count Seg Neuts % (Manual) 84.0 H Lymphocytes % (Manual) 1.0 L Nucleated RBC % 3.0 H Seg Neutrophils # Man 20.2 H Lymphocytes # (Manual) 0.2 L Monocytes # (Manual) PT INR APTT D-Dimer Heparin Anti-Xa Level ABG pH POC ABG pCO2 POC ABG pO2 ABG pO2 ABG O2 Saturation ABG Base Excess ABG Hemoglobin ABG Oxyhemoglobin ABG Potassium ABG Chloride ABG Glucose Oxyhemoglobin Carboxyhemoglobin Sodium Chloride Carbon Dioxide BUN Creatinine Glucose POC Glucose 279 H 284 H Lactic Acid Calcium Ferritin Lactate Dehydrogenase Troponin T C-Reactive Protein Total Protein Albumin Triglycerides HDL Cholesterol Arterial Blood Glucose Arterial Blood Ionized Calcium Ur Specific [place] Coronavirus (PCR) 03/10/21 03/10/21 03/10/21 01:12 03:29 04:32 WBC 22.6 H 21.5 H RBC 3.31 L 3.33 L Hgb 9.3 L 9.4 L Hct 28.9 L 28.9 L RDW 15.3 H Plt Count Seg Neuts % (Manual) 89.0 H Lymphocytes % (Manual) 6.0 L Nucleated RBC % Seg Neutrophils # Man 20.1 H Lymphocytes # (Manual) Monocytes # (Manual) 1.1 H PT INR APTT D-Dimer Heparin Anti-Xa Level ABG pH POC ABG pCO2 26.7 L POC ABG pO2 148.7 H ABG pO2 ABG O2 Saturation ABG Base Excess ABG Hemoglobin 9.5 L ABG Oxyhemoglobin 98.3 H ABG Potassium 4.7 H ABG Chloride 114.0 H ABG Glucose 263 H Oxyhemoglobin Carboxyhemoglobin 0.3 L Sodium Chloride Carbon Dioxide BUN Creatinine Glucose POC Glucose Lactic Acid Calcium Ferritin Lactate Dehydrogenase Troponin T C-Reactive Protein Total Protein Albumin Triglycerides HDL Cholesterol Arterial Blood Glucose 263 H Arterial Blood Ionized Calcium 4.4 L Ur Specific [place] Coronavirus (PCR) 0603/10/21 03/10/21 04:32 04:32 05:26 WBC RBC Hgb Hct RDW Plt Count Seg Neuts % (Manual) Lymphocytes % (Manual) Nucleated RBC % Seg Neutrophils # Man Lymphocytes # (Manual) Monocytes # (Manual) PT INR APTT D-Dimer Heparin Anti-Xa Level ABG pH POC ABG pCO2 POC ABG pO2 ABG pO2 ABG O2 Saturation ABG Base Excess ABG Hemoglobin ABG Oxyhemoglobin ABG Potassium ABG Chloride ABG Glucose Oxyhemoglobin Carboxyhemoglobin Sodium Chloride 112.2 H 111.0 H Carbon Dioxide 21 L 21 L BUN 24 H 25 H Creatinine Glucose 262 H 258 H POC Glucose 246 H Lactic Acid Calcium 7.5 L 7.3 L Ferritin Lactate Dehydrogenase Troponin T C-Reactive Protein Total Protein 5.8 L Albumin 2.8 L Triglycerides HDL Cholesterol Arterial Blood Glucose Arterial Blood Ionized Calcium Ur Specific [place] Coronavirus (PCR) 03/10/21 03/10/21 03/10/21 11:50 17:18 21:39 WBC RBC Hgb Hct RDW Plt Count Seg Neuts % (Manual) Lymphocytes % (Manual) Nucleated RBC % Seg Neutrophils # Man Lymphocytes # (Manual) Monocytes # (Manual) PT INR APTT D-Dimer Heparin Anti-Xa Level ABG pH POC ABG pCO2 POC ABG pO2 ABG pO2 ABG O2 Saturation ABG Base Excess ABG Hemoglobin ABG Oxyhemoglobin ABG Potassium ABG Chloride ABG Glucose Oxyhemoglobin Carboxyhemoglobin Sodium Chloride Carbon Dioxide BUN Creatinine Glucose POC Glucose 234 H 248 H 242 H Lactic Acid Calcium Ferritin Lactate Dehydrogenase Troponin T C-Reactive Protein Total Protein Albumin Triglycerides HDL Cholesterol Arterial Blood Glucose Arterial Blood Ionized Calcium Ur Specific [place] Coronavirus (PCR) 03/10/21 03/11/21 03/11/21 22:39 02:12 04:40 WBC RBC Hgb Hct RDW Plt Count Seg Neuts % (Manual) Lymphocytes % (Manual) Nucleated RBC % Seg Neutrophils # Man Lymphocytes # (Manual) Monocytes # (Manual) PT INR APTT D-Dimer Heparin Anti-Xa Level ABG pH 7.481 H POC ABG pCO2 27.3 L POC ABG pO2 180.2 H ABG pO2 ABG O2 Saturation ABG Base Excess ABG Hemoglobin 11.2 L ABG Oxyhemoglobin 99.1 H ABG Potassium ABG Chloride 111.0 H ABG Glucose 311 H Oxyhemoglobin Carboxyhemoglobin 0.2 L Sodium Chloride 108.6 H Carbon Dioxide 21 L BUN 23 H Creatinine Glucose 276 H POC Glucose 245 H Lactic Acid Calcium 8.0 L Ferritin Lactate Dehydrogenase Troponin T C-Reactive Protein Total Protein 6.1 L Albumin 3.2 L Triglycerides HDL Cholesterol Arterial Blood Glucose 311 H Arterial Blood Ionized Calcium 4.5 L Ur Specific [place] Coronavirus (PCR) 03/11/21 03/11/21 03/11/21 04:55 12:35 18:15 WBC RBC Hgb Hct RDW Plt Count Seg Neuts % (Manual) Lymphocytes % (Manual) Nucleated RBC % Seg Neutrophils # Man Lymphocytes # (Manual) Monocytes # (Manual) PT INR APTT D-Dimer Heparin Anti-Xa Level ABG pH POC ABG pCO2 POC ABG pO2 ABG pO2 ABG O2 Saturation ABG Base Excess ABG Hemoglobin ABG Oxyhemoglobin ABG Potassium ABG Chloride ABG Glucose Oxyhemoglobin Carboxyhemoglobin Sodium Chloride Carbon Dioxide BUN Creatinine Glucose POC Glucose 260 H 273 H 283 H Lactic Acid Calcium Ferritin Lactate Dehydrogenase Troponin T C-Reactive Protein Total Protein Albumin Triglycerides HDL Cholesterol Arterial Blood Glucose Arterial Blood Ionized Calcium Ur Specific [place] Coronavirus (PCR) 03/11/21 03/12/21 03/12/21 23:17 04:00 05:39 WBC RBC Hgb Hct RDW Plt Count Seg Neuts % (Manual) Lymphocytes % (Manual) Nucleated RBC % Seg Neutrophils # Man Lymphocytes # (Manual) Monocytes # (Manual) PT INR APTT D-Dimer Heparin Anti-Xa Level ABG pH 7.463 H POC ABG pCO2 30.9 L POC ABG pO2 ABG pO2 ABG O2 Saturation ABG Base Excess ABG Hemoglobin 10.7 L ABG Oxyhemoglobin ABG Potassium ABG Chloride ABG Glucose 310 H Oxyhemoglobin Carboxyhemoglobin 0.3 L Sodium Chloride Carbon Dioxide BUN Creatinine Glucose POC Glucose 280 H 278 H Lactic Acid Calcium Ferritin Lactate Dehydrogenase Troponin T C-Reactive Protein Total Protein Albumin Triglycerides HDL Cholesterol Arterial Blood Glucose 310 H Arterial Blood Ionized Calcium Ur Specific [place] Coronavirus (PCR) 03/12/21 03/12/21 03/12/21 05:52 05:52 13:02 WBC 41.7 H* RBC Hgb Hct RDW Plt Count Seg Neuts % (Manual) Lymphocytes % (Manual) Nucleated RBC % Seg Neutrophils # Man Lymphocytes # (Manual) Monocytes # (Manual) PT INR APTT D-Dimer Heparin Anti-Xa Level ABG pH POC ABG pCO2 POC ABG pO2 ABG pO2 ABG O2 Saturation ABG Base Excess ABG Hemoglobin ABG Oxyhemoglobin ABG Potassium ABG Chloride ABG Glucose Oxyhemoglobin Carboxyhemoglobin Sodium Chloride 107.5 H Carbon Dioxide BUN Creatinine 0.5 L Glucose 297 H POC Glucose 345 H Lactic Acid Calcium 8.1 L Ferritin Lactate Dehydrogenase Troponin T C-Reactive Protein Total Protein Albumin Triglycerides HDL Cholesterol Arterial Blood Glucose Arterial Blood Ionized Calcium Ur Specific [place] Coronavirus (PCR) 03/12/21 03/12/21 03/13/21 17:11 23:32 04:00 WBC RBC Hgb Hct RDW Plt Count Seg Neuts % (Manual) Lymphocytes % (Manual) Nucleated RBC % Seg Neutrophils # Man Lymphocytes # (Manual) Monocytes # (Manual) PT INR APTT D-Dimer Heparin Anti-Xa Level 0.29 L ABG pH POC ABG pCO2 POC ABG pO2 ABG pO2 ABG O2 Saturation ABG Base Excess ABG Hemoglobin ABG Oxyhemoglobin ABG Potassium ABG Chloride ABG Glucose Oxyhemoglobin Carboxyhemoglobin Sodium Chloride Carbon Dioxide BUN Creatinine Glucose POC Glucose 383 H 282 H Lactic Acid Calcium Ferritin Lactate Dehydrogenase Troponin T C-Reactive Protein Total Protein Albumin Triglycerides HDL Cholesterol Arterial Blood Glucose Arterial Blood Ionized Calcium Ur Specific [place] Coronavirus (PCR) 03/13/21 03/13/21 03/13/21 04:00 04:00 05:28 WBC 32.9 H RBC Hgb Hct RDW Plt Count Seg Neuts % (Manual) Lymphocytes % (Manual) Nucleated RBC % Seg Neutrophils # Man Lymphocytes # (Manual) Monocytes # (Manual) PT INR APTT D-Dimer Heparin Anti-Xa Level ABG pH POC ABG pCO2 POC ABG pO2 ABG pO2 ABG O2 Saturation ABG Base Excess ABG Hemoglobin ABG Oxyhemoglobin ABG Potassium ABG Chloride ABG Glucose Oxyhemoglobin Carboxyhemoglobin Sodium Chloride Carbon Dioxide BUN 18 H Creatinine 0.4 L Glucose 316 H POC Glucose 318 H Lactic Acid Calcium Ferritin Lactate Dehydrogenase Troponin T C-Reactive Protein Total Protein Albumin Triglycerides HDL Cholesterol Arterial Blood Glucose Arterial Blood Ionized Calcium Ur Specific [place] Coronavirus (PCR) 03/13/21 03/13/21 03/13/21 05:58 12:41 13:41 WBC RBC Hgb Hct RDW Plt Count Seg Neuts % (Manual) Lymphocytes % (Manual) Nucleated RBC % Seg Neutrophils # Man Lymphocytes # (Manual) Monocytes # (Manual) PT INR APTT D-Dimer Heparin Anti-Xa Level ABG pH 7.465 H POC ABG pCO2 POC ABG pO2 79.5 L ABG pO2 ABG O2 Saturation ABG Base Excess ABG Hemoglobin 10.6 L ABG Oxyhemoglobin ABG Potassium ABG Chloride ABG Glucose 319 H Oxyhemoglobin Carboxyhemoglobin 0.4 L Sodium Chloride Carbon Dioxide BUN Creatinine Glucose POC Glucose 304 H 342 H Lactic Acid Calcium Ferritin Lactate Dehydrogenase Troponin T C-Reactive Protein Total Protein Albumin Triglycerides HDL Cholesterol Arterial Blood Glucose 319 H Arterial Blood Ionized Calcium 4.5 L Ur Specific [place] Coronavirus (PCR) 03/13/21 03/13/21 03/14/21 17:23 23:14 04:52 WBC RBC Hgb Hct RDW Plt Count Seg Neuts % (Manual) Lymphocytes % (Manual) Nucleated RBC % Seg Neutrophils # Man Lymphocytes # (Manual) Monocytes # (Manual) PT INR APTT D-Dimer Heparin Anti-Xa Level ABG pH POC ABG pCO2 POC ABG pO2 ABG pO2 ABG O2 Saturation ABG Base Excess ABG Hemoglobin ABG Oxyhemoglobin ABG Potassium ABG Chloride ABG Glucose Oxyhemoglobin Carboxyhemoglobin Sodium Chloride Carbon Dioxide BUN Creatinine Glucose POC Glucose 336 H 257 H 266 H Lactic Acid Calcium Ferritin Lactate Dehydrogenase Troponin T C-Reactive Protein Total Protein Albumin Triglycerides HDL Cholesterol Arterial Blood Glucose Arterial Blood Ionized Calcium Ur Specific [place] Coronavirus (PCR) 03/14/21 03/14/21 03/14/21 08:35 08:35 08:35 WBC 21.9 H RBC Hgb Hct RDW 15.4 H Plt Count Seg Neuts % (Manual) Lymphocytes % (Manual) Nucleated RBC % Seg Neutrophils # Man Lymphocytes # (Manual) Monocytes # (Manual) PT INR APTT D-Dimer 4053.87 H Heparin Anti-Xa Level < 0.10 L ABG pH POC ABG pCO2 POC ABG pO2 ABG pO2 ABG O2 Saturation ABG Base Excess ABG Hemoglobin ABG Oxyhemoglobin ABG Potassium ABG Chloride ABG Glucose Oxyhemoglobin Carboxyhemoglobin Sodium 131 L D Chloride 96.3 L Carbon Dioxide BUN 19 H Creatinine 0.3 L Glucose 265 H POC Glucose Lactic Acid Calcium Ferritin Lactate Dehydrogenase 768 H Troponin T C-Reactive Protein Total Protein Albumin Triglycerides HDL Cholesterol Arterial Blood Glucose Arterial Blood Ionized Calcium Ur Specific [place] Coronavirus (PCR) 03/14/21 03/14/21 08:35 11:49 WBC RBC Hgb Hct RDW Plt Count Seg Neuts % (Manual) Lymphocytes % (Manual) Nucleated RBC % Seg Neutrophils # Man Lymphocytes # (Manual) Monocytes # (Manual) PT INR APTT D-Dimer Heparin Anti-Xa Level ABG pH POC ABG pCO2 POC ABG pO2 ABG pO2 ABG O2 Saturation ABG Base Excess ABG Hemoglobin ABG Oxyhemoglobin ABG Potassium ABG Chloride ABG Glucose Oxyhemoglobin Carboxyhemoglobin Sodium Chloride Carbon Dioxide BUN Creatinine Glucose POC Glucose 256 H Lactic Acid Calcium Ferritin 209.5 H Lactate Dehydrogenase Troponin T C-Reactive Protein Total Protein Albumin Triglycerides HDL Cholesterol Arterial Blood Glucose Arterial Blood Ionized Calcium Ur Specific [place] Coronavirus (PCR) Allied health notes reviewed: nursing
--- NOTE | 2021-03-14 15:53 | Progress Note ---
<KEITHRALPHDakota - Last Filed: 03/14/21 16:34> Assessment and Plan Assessment and plan: This is a 45-year-old female with no significant past medical history admitted to the hospital service with COVID-19 pneumonia, multiple peripheral bilateral lower lobe pulmonary emboli, septic shock, leukocytosis, hyponatremia, hyp ochloremia, metabolic acidosis, lactic acidosis. COVID-19 pneumonia Septic shock secondary to COVID-19 pneumonia Acute hypoxic respiratory failure Pulmonary embolism Left posterior tibial and peroneal veins DVT Leukocytosis Hypochloremia Pseudohyponatremia Metabolic acidosis Lactic acidosis (improved) Thrombocytopenia (improved-03/08 HIT NEGATIVE) Oropharyngeal dysphagia Urinary retention Hyperglycemia Acute metabolic encephalopathy Obesity -CCM, infectious disease consulted, appreciate recommendations -03/07 COVID-19 PCR positive -Droplet/aspiration precautions -Steroid therapy -Vitamin C, vitamin D, zinc -S/p remdesivir -S/p Actemra on 03/09/2021 -Antibiotic therapy -Continuous SPO2 monitoring -Wean mechanical ventilation as tolerated, VAP bundle -Pulmonary hygiene -Aspiration/seizure precautions -Heparin drip -Bowel regimen -Tube feedings -SSI, Accu-Cheks every 6, long-acting insulin -Trend COVID-19 inflammatory markers, CBC, BMP DVT/GI prophylaxis: Systemic anticoagulation with heparin, PPI Disposition: ICU The high probability of a clinically significant, sudden or life threatening deterioration of the [pulmonary] system(s) required my full and direct attention, intervention and personal management. The aggregate critical care time was [35] minutes. This time is in addition to time spent performing reported procedures but includes the following: [X] Data Review and interpretation [X] Patient assessment and monitoring of vital signs [X] Documentation [X] Medication orders and management History Interval history: This is a 45-year-old female with significant past medical history presented to emergency department on 03/07 complaining of cough, shortness of breath and diarrhea for 3 days prior to arrival. Upon arrival to emergency department patient was found to be in respiratory distress and initial oxygen saturations w ere said to be in the 50s and patient was placed on a nonrebreather with improvement of oxygen saturations to 7 days. Patient was subsequently intubated in the emergency department and upon review patient did not receive COVID-19 vaccination. Work-up in the emergency department revealed bilateral pulmonary infiltrates on CXR, leukocytosis of 31,000, hyperglycemia with a blood glucose of 301, elevated D-dimer greater than 10,000., CTA chest showed multiple peripheral bilateral lower lobe pulmonary emboli. Patient was hypotensive in the emergency department and fluid resuscitated and started on vasopressors. Patient will be admitted to the hospital service with COVID-19 PUI, septic shock secondary to pneumonia, pulmonary emboli and acute hypoxic respiratory failure. [facility] and infectious disease were consulted. Patient was started on heparin drip. 03/08: New issues: Thrombocytosis question if this is secondary to HIT. We will send out HIT panel. Monitor platelets. Continue heparin drip at this time. Await pulmonary and ID input. 03/09: Patient noted to have Covid positive pneumonia ID input is appreciated patient on dexamethasone for complete 10 days of therapy now started on remdesivir due to hypoxia also to complete 5 days therapy and Actemra a one- time. We will continue to monitor -Obtain q48-72h inflammatory markers - ferritin, Ddimer, CRP, LDH -Continue ceftriaxone 2 gm IV qday and azithromycin 500 mg PO qday for 5 days given elevated procal -Anticoagulation per hospital protocol -Proning as able I also requested a stat CBC to further evaluate thrombocytosis that was noted yesterday. I called Serafin ring to update and got voicemail left a m essage. I also called James Hernandez but his phone is unable to accept messages at this time. 03/10: Possible ileus versus bowel obstruction. Will obtain KUB. Continue to hold tube feeds at this time. We will also obtain GI consult if no resolution. Also patient noted to have urinary retention we will proceed with placing a Maya catheter. She does follow commands some when off sedation but gets easily agitated. Continue ICU management at this point. 03/11: Blood sugar still elevated adjusted nighttime insulin for better coverage. KUB concerning for radiopaque object possible tablet. Was not present on 03 08. We will repeat a KUB in a.m. to see if resolution versus ileus. Continue current management for COVID-19. Continue heparin drip for noted pulmonary embolism. Platelets actually improved despite being on heparin doubt HIT. Patient still requires critical care monitoring. Altered mental status still present. 03/12: Worsening leukocytosis this could be secondary to steroids. We will give Lasix today in addition to empiric vitamins. Chest x-ray shows worsening opacities will monitor closely. Continue full mechanical ventilation and restraints for safety. 03/13: At the time my examination patient was on fentanyl at 3 mcg, heparin drip, pressure control ventilation with a rate of 20, pressure support of 20, FiO2 of 35% and PEEP of 12 and ECMO blood change patient ventilation to assist control tidal volume 450, rate of 14, PEEP of 10 in the morning. RN reported the patient did not have a BM since admission and [facility] ordered mag citrate x1. 03/14: SBT trial per CCM, leukocytosis and D-dimer is improving. Patient is hyperglycemic and long-acting insulin dosage has been increased. Patient has pseudohyponatremia today. Nurse reported that patient central line was not drawing back blood and Cathflo was ordered. No acute events reported overnight. Hospitalist Physical - Constitutional Vitals: Temp Pulse Resp BP Pulse Ox 98.7 F 72 15 133/60 93 03/14/21 12:00 03/14/21 15:02 03/14/21 14:00 03/14/21 15:02 03/14/21 15:02 General appearance: Present: well-nourished, obese, other (Intubated and sedated) - EENT Eyes: Present: PERRL - Neck Neck: Present: normal ROM - Respiratory Respiratory effort: normal Respiratory: bilateral: diminished - Cardiovascular Rhythm: regular Heart Sounds: Present: S1 & S2. Absent: systolic murmur, diastolic murmur - Extremities Extremities: no ischemia, pulses intact, pulses symmetrical, normal temperature, normal color Peripheral Pulses: within normal limits - Abdominal General gastrointestinal: soft, non-tender, non-distended, normal bowel sounds - Integumentary Integumentary: Present: warm, dry - Neurologic Neurologic: moves all extremities, other (does not follow commands, lithuanian speaking) - Allied Health Allied health notes reviewed: nursing, RT, social work HEART Score - HEART Score Troponin: Troponin T 0.085 ng/mL (0.00-0.029) H 03/07/21 20:31 Results - Labs CBC & Chem 7: 03/14/21 08:35 03/14/21 08:35 Labs: Laboratory Last Values WBC 21.9 K/mm3 (4.5-11.0) H 03/14/21 08:35 RBC 3.97 M/mm3 (3.65-5.03) 03/14/21 08:35 Hgb 11.2 gm/dl (10.1-14.3) 03/14/21 08:35 Hct 34.6 % (30.3-42.9) 03/14/21 08:35 MCV 87 fl (79-97) 03/14/21 08:35 MCH 28 pg (28-32) 03/14/21 08:35 MCHC 32 % (30-34) 03/14/21 08:35 RDW 15.4 % (13.2-15.2) H 03/14/21 08:35 Plt Count 180 K/mm3 (140-440) 03/14/21 08:35 Lymph % (Auto) Final Dressing Cutter 03/07/21 21:04 [place] % (Auto) Final Dressing Cutter 03/07/21 21:04 Eos % (Auto) Final Dressing Cutter 03/07/21 21:04 Baso % (Auto) Final Dressing Cutter 03/07/21 21:04 Lymph # (Auto) Final Dressing Cutter 03/07/21 21:04 [place] # (Auto) Final Dressing Cutter 03/07/21 21:04 Eos # (Auto) Final Dressing Cutter 03/07/21 21:04 Baso # (Auto) Final Dressing Cutter 03/07/21 21:04 Add Manual Diff Complete 03/10/21 01:12 Total Counted 100 03/10/21 01:12 Seg Neutrophils % Final Dressing Cutter 03/10/21 01:12 Seg Neuts % (Manual) 89.0 % (40.0-70.0) H 03/10/21 01:12 Band Neutrophils % 11.0 % 03/09/21 12:10 Lymphocytes % (Manual) 6.0 % (13.4-35.0) L 03/10/21 01:12 Monocytes % (Manual) 5.0 % (0.0-7.3) 03/10/21 01:12 Metamyelocytes % 1.0 % 03/09/21 12:10 Myelocytes % 1.0 % 03/09/21 12:10 Nucleated RBC % Not Reportable 03/10/21 01:12 Seg Neutrophils # Final Dressing Cutter 03/07/21 21:04 Seg Neutrophils # Man 20.1 K/mm3 (1.8-7.7) H 03/10/21 01:12 Band Neutrophils # 0.0 K/mm3 03/10/21 01:12 Lymphocytes # (Manual) 1.4 K/mm3 (1.2-5.4) 03/10/21 01:12 Abs React Lymphs (Man) 0.0 K/mm3 03/10/21 01:12 Monocytes # (Manual) 1.1 K/mm3 (0.0-0.8) H 03/10/21 01:12 Eosinophils # (Manual) 0.0 K/mm3 (0.0-0.4) 03/10/21 01:12 Basophils # (Manual) 0.0 K/mm3 (0.0-0.1) 03/10/21 01:12 Metamyelocytes # 0.0 K/mm3 03/10/21 01:12 Myelocytes # 0.0 K/mm3 03/10/21 01:12 Promyelocytes # 0.0 K/mm3 03/10/21 01:12 Blast Cells # 0.0 K/mm3 03/10/21 01:12 WBC Morphology Not Reportable 03/10/21 01:12 Hypersegmented Neuts Not Reportable 03/10/21 01:12 Hyposegmented Neuts Not Reportable 03/10/21 01:12 Hypogranular Neuts Not Reportable 03/10/21 01:12 Smudge Cells Not Reportable 03/10/21 01:12 Toxic Granulation Not Reportable 03/10/21 01:12 Toxic Vacuolation Not Reportable 03/10/21 01:12 Dohle Bodies Not Reportable 03/10/21 01:12 Pelger-Huet Anomaly Not Reportable 03/10/21 01:12 Jarrett Rods Not Reportable 03/10/21 01:12 Platelet Estimate Not Reportable 03/10/21 01:12 Clumped Platelets Not Reportable 03/10/21 01:12 Plt Clumps, EDTA Not Reportable 03/10/21 01:12 Large Platelets Not Reportable 03/10/21 01:12 Giant Platelets Not Reportable 03/10/21 01:12 Platelet Satelliting Not Reportable 03/10/21 01:12 Plt Morphology Comment Not Reportable 03/10/21 01:12 RBC Morphology Normal 03/10/21 01:12 Dimorphic RBCs Not Reportable 03/10/21 01:12 Polychromasia Not Reportable 03/10/21 01:12 Hypochromasia Not Reportable 03/10/21 01:12 Poikilocytosis Not Reportable 03/10/21 01:12 Anisocytosis Not Reportable 03/10/21 01:12 Microcytosis Not Reportable 03/10/21 01:12 Macrocytosis Not Reportable 03/10/21 01:12 Spherocytes Not Reportable 03/10/21 01:12 Pappenheimer Bodies Not Reportable 03/10/21 01:12 Sickle Cells Not Reportable 03/10/21 01:12 Target Cells Not Reportable 03/10/21 01:12 Tear Drop Cells Not Reportable 03/10/21 01:12 Ovalocytes Not Reportable 03/10/21 01:12 Helmet Cells Not Reportable 03/10/21 01:12 Agustin-Eckley Bodies Not Reportable 03/10/21 01:12 [place] Rings Not Reportable 03/10/21 01:12 [place] Cells Not Reportable 03/10/21 01:12 Bite Cells Not Reportable 03/10/21 01:12 Crenated Cell Not Reportable 03/10/21 01:12 Elliptocytes Not Reportable 03/10/21 01:12 Acanthocytes (Spur) Not Reportable 03/10/21 01:12 Rouleaux Not Reportable 03/10/21 01:12 Hemoglobin C Crystals Not Reportable 03/10/21 01:12 Schistocytes Not Reportable 03/10/21 01:12 Malaria parasites Not Reportable 03/10/21 01:12 Joss Bodies Not Reportable 03/10/21 01:12 Hem Pathologist Commnt No 03/10/21 01:12 PT 18.5 Sec. (12.2-14.9) H 03/08/21 07:55 INR 1.49 (0.87-1.13) H 03/08/21 07:55 APTT 113.5 Sec. (24.2-36.6) H* 03/08/21 07:55 D-Dimer 4053.87 ng/mlDDU (0-234) H 03/14/21 08:35 Heparin Anti-Xa Level < 0.10 U.I./ml (0.3-0.7) L 03/14/21 08:35 Heparin Anti-Xa, Unfract Negative (Negative) 03/08/21 13:00 ABG pH 7.465 (7.320-7.450) H 03/13/21 05:58 POC ABG pCO2 39.4 mmHg (32.0-48.0) 03/13/21 05:58 ABG pCO2 39.5 mm Hg 03/07/21 Unknown POC ABG pO2 79.5 mmHg (83-108) L 03/13/21 05:58 ABG pO2 62.6 mm Hg (80.0-90.0) L 03/07/21 Unknown POC ABG HCO3 27.7 03/13/21 05:58 ABG HCO3 20.7 mmol/L (20.0-26.0) 03/07/21 Unknown ABG O2 Saturation 95.6 (0-100) 03/13/21 05:58 ABG O2 Content 15.1 (0.0-44) 03/07/21 Unknown POC ABG Base Excess 3.7 03/13/21 05:58 ABG Base Excess -4.7 mmol/L (-2.0-3.0) L 03/07/21 Unknown ABG Hemoglobin 10.6 (12.0-17.5) L 03/13/21 05:58 ABG Oxyhemoglobin 94.9 (94-98) 03/13/21 05:58 ABG Carboxyhemoglobin 1.4 % (0.0-5.0) 03/07/21 Unknown ABG Methemoglobin 0.3 (0.0-1.5) 03/13/21 05:58 ABG Sodium 136.2 mmol/L (136.0-145.0) 03/13/21 05:58 ABG Potassium 4.3 mmol/L (3.40-4.50) 03/13/21 05:58 ABG Chloride 102.0 mmol/L (98-107) 03/13/21 05:58 ABG Glucose 319 mg/dL (65-95) H 03/13/21 05:58 Oxyhemoglobin 87.3 % (95.0-99.0) L 03/07/21 Unknown Carboxyhemoglobin 0.4 (0.5-1.5) L 03/13/21 05:58 FiO2 100 % 03/07/21 Unknown FiO2 % 40 03/13/21 05:58 Sodium 131 mmol/L (137-145) L D 03/14/21 08:35 Potassium 4.4 mmol/L (3.6-5.0) 03/14/21 08:35 Chloride 96.3 mmol/L (98-107) L 03/14/21 08:35 Carbon Dioxide 25 mmol/L (22-30) 03/14/21 08:35 Anion Gap 14 mmol/L 03/14/21 08:35 BUN 19 mg/dL (7-17) H 03/14/21 08:35 Creatinine 0.3 mg/dL (0.6-1.2) L 03/14/21 08:35 Estimated GFR > 60 ml/min 03/14/21 08:35 BUN/Creatinine Ratio 63 % 03/14/21 08:35 Glucose 265 mg/dL (65-100) H 03/14/21 08:35 POC Glucose 256 mg/dL (70-105) H 03/14/21 11:49 Lactic Acid 1.90 mmol/L (0.7-2.0) 03/10/21 01:12 Calcium 8.5 mg/dL (8.4-10.2) 03/14/21 08:35 Ferritin 209.5 ng/mL (10.0-200.0) H 03/14/21 08:35 Total Bilirubin 0.30 mg/dL (0.1-1.2) 03/11/21 04:40 AST 19 units/L (5-40) 03/11/21 04:40 ALT 12 units/L (7-56) 03/11/21 04:40 Alkaline Phosphatase 107 units/L (35-129) 03/11/21 04:40 Lactate Dehydrogenase 768 units/L (91-180) H 03/14/21 08:35 Troponin T 0.085 ng/mL (0.00-0.029) H 03/07/21 20:31 C-Reactive Protein 0.90 mg/dL (0.00-1.30) 03/14/21 08:35 Total Protein 6.1 g/dL (6.3-8.2) L 03/11/21 04:40 Albumin 3.2 g/dL (3.9-5) L 03/11/21 04:40 Albumin/Globulin Ratio 1.1 % 03/11/21 04:40 Triglycerides 213 mg/dL (2-149) H 03/07/21 20:31 Cholesterol 141 mg/dL (50-199) 03/07/21 20:31 LDL Cholesterol Direct 72 mg/dL (50-130) 03/07/21 20:31 HDL Cholesterol 34 mg/dL (40-59) L 03/07/21 20:31 Cholesterol/HDL Ratio 4.14 % 03/07/21 20:31 Serotonin Release Assay See scanned result 03/08/21 13:00 Procalcitonin 0.20 ng/mL (<0.15) 03/13/21 08:08 HCG, Qual Negative (Negative) 03/07/21 22:48 Arterial Blood Glucose 319 mg/dL (65-95) H 03/13/21 05:58 Arterial Blood Ionized Calcium 4.5 mg/dL (4.6-5.3) L 03/13/21 05:58 Urine Color Yellow (Yellow) 03/08/21 05:51 Urine Turbidity Clear (Clear) 03/08/21 05:51 Urine pH 6.0 (5.0-7.0) 03/08/21 05:51 Ur Specific [place] > 1.050 (1.003-1.030) H 03/08/21 05:51 Urine Protein 100 mg/dl mg/dL (Negative) 03/08/21 05:51 Urine Glucose (UA) Neg mg/dL (Negative) 03/08/21 05:51 Urine Ketones Neg mg/dL (Negative) 03/08/21 05:51 Urine Blood Neg (Negative) 03/08/21 05:51 Urine Nitrite Neg (Negative) 03/08/21 05:51 Urine Bilirubin Neg (Negative) 03/08/21 05:51 Urine Urobilinogen 4.0 mg/dL (<2.0) 03/08/21 05:51 Ur Leukocyte Esterase Neg (Negative) 03/08/21 05:51 Urine WBC (Auto) 5.0 /HPF (0.0-6.0) 03/08/21 05:51 Urine RBC (Auto) 5.0 /HPF (0.0-6.0) 03/08/21 05:51 U Epithel Cells (Auto) < 1.0 /HPF (0-13.0) 03/08/21 05:51 Urine Bacteria (Auto) 1+ /HPF (Negative) 03/08/21 05:51 Urine Mucus Few /HPF 03/08/21 05:51 Heparin-induced Plt Ab Negative (Negative) 03/08/21 13:00 UF Heparin High Dose 0 % Release 03/08/21 13:00 JESSY UFH Low Dose 0.1 0 % Release 03/08/21 13:00 JESSY UFH Low Dose 0.5 0 % Release 03/08/21 13:00 Coronavirus (PCR) Positive (Negative) A 03/07/21 Unknown Microbiology: Microbiology 03/10/21 04:32 Peripheral/Venous Blood Culture - Preliminary NO GROWTH AFTER 4 DAYS 03/10/21 01:12 Peripheral/Venous Blood Culture - Preliminary NO GROWTH AFTER 4 DAYS Maya/IV: Voiding Method Indwelling Catheter Active Medications - Current Medications Current Medications: Generic Name Dose Route Start Last Admin Trade Name Freq PRN Reason Stop Dose Admin Acetaminophen 650 mg 03/10/21 00:30 Acetaminophen 650 Mg Rect Supp VT Q4H PRN Pain, Mild (1-3) Alteplase, Recombinant 2 mg 03/14/21 16:00 Alteplase 2 Mg Inj IV 03/14/21 16:01 ONCE ONE Lipase/Protease/Amylase 1 each 03/08/21 13:40 Lipase 10,500/Protease 25,000/Amylase 43,750 (Units) Dr Coreas FEEDTUBE PRN PRN For Clogged Feeding Tube Ascorbic Acid 1,000 mg 03/12/21 10:00 03/14/21 09:16 Ascorbic Acid 500 Mg Tab PO 1,000 mg BID MARCO ANTONIO Administration Cholecalciferol 5,000 unit 03/12/21 10:00 03/14/21 09:15 Cholecalciferol (Vit D3) 5,000 Unit Tab PO 5,000 unit DAILY MARCO ANTONIO Administration Dexamethasone 8 mg 03/08/21 10:00 03/14/21 09:17 Dexamethasone 4 Mg/Ml Vial IV 03/17/21 10:01 8 mg DAILY MARCO ANTONIO Administration Dextrose 50 ml 03/07/21 22:57 Dextrose 50% In Water (25gm) 50 Ml Syringe IV Q30MIN PRN Hypoglycemia Protocol Famotidine 20 mg 03/13/21 10:00 03/14/21 09:15 Famotidine 20 Mg Tab PO 20 mg BID MARCO ANTONIO Administration Fentanyl 50 mcg 03/07/21 21:20 03/07/21 22:13 Fentanyl 100 Mcg/2 Ml Inj IV 50 mcg Q10MIN PRN Administration ANALGESIA Heparin Sodium (Porcine) 8,000 unit 03/08/21 03:37 03/14/21 11:30 Heparin 10,000 Units/10 Ml Vial 40 unit/kg (8000 unit) 8,000 unit IV Administration Q6H PRN Anti-Xa Assay < 0.1 units/ml Hydrophilic Ointment 1 applic 03/08/21 12:42 Lip Therapy Vaseline TP Q2HR PRN Dry Lips Propofol 1,000 mg in 100 mls @ 3.084 mls/hr 03/07/21 21:00 03/14/21 10:00 Diprivan 10 Mg/Ml IV 20 mcg/kg/min TITR MARCO ANTONIO 12.336 mls/hr Titration Protocol 5 MCG/KG/MIN Fentanyl Citrate 2,000 mcg in 100 mls @ 5.14 mls/hr 03/07/21 22:00 03/14/21 09:15 Fentanyl Drip Premix IV 2 mcg/kg/hr TITR MARCO ANTONIO 10.28 mls/hr Administration Protocol 1 MCG/KG/HR Norepinephrine 4 mg in 250 mls @ 7.5 mls/hr 03/07/21 23:45 03/08/21 08:15 Levophed Drip 4 Mg/Ns 250 Ml IV 0 mcg/min TITR MARCO ANTONIO 0 mls/hr Titration Protocol 2 MCG/MIN Heparin Sodium/Sodium Chloride 25,000 unit in 500 mls @ 30 mls/hr 03/08/21 04:00 03/14/21 11:29 Heparin/ 0.45% Nacl-25,000 Unit/500 Ml IV 2,100 units/hr TITR MARCO ANTONIO 42 mls/hr Titration Protocol 1,500 UNITS/HR Insulin Glargine 35 units 03/14/21 22:00 Insulin Glargine 100 Units/Ml SUB-Q QHS [facility] Insulin Human Lispro 0 unit 03/08/21 12:00 03/14/21 05:27 Insulin Lispro 100 Unit/Ml SUB-Q 6 unit Q6HR [facility] Administration Protocol Magnesium Hydroxide 30 ml 03/07/21 22:57 03/13/21 10:13 Magnesium Hydroxide (Mom) Oral Liqd Udc PO 30 ml Q4H PRN Administration Constipation Morphine Sulfate 2 mg 03/07/21 22:57 03/09/21 21:29 Morphine 2 Mg/1 Ml Inj IV 2 mg Q4H PRN Administration Pain, Moderate (4-6) Multi-Ingred Cream/Lotion/Oil/Oint 1 applic 03/08/21 12:42 Mineral Oil/Petrolatum, White Ophth Oint 3.5 Gm OU Q4HR PRN Dry Eye(s) Ondansetron HCl 4 mg 03/07/21 22:57 Ondansetron 4 Mg/2 Ml Inj IV Q8H PRN Nausea And Vomiting Senna/Docusate Sodium 1 tab 03/08/21 22:00 03/14/21 09:15 Sennosides/Docusate Sodium 8.6/50 Mg Tab FEEDTUBE 1 tab BID MARCO ANTONIO Administration Simple Syrup 15 ml 03/08/21 13:40 Simple Syrup 15 Ml FEEDTUBE PRN PRN Hypoglycemia Simple Syrup 30 ml 03/08/21 13:40 Simple Syrup 15 Ml FEEDTUBE PRN PRN Hypoglycemia Sodium Bicarbonate 325 mg 03/08/21 13:40 Sodium Bicarbonate 325 Mg Tab FEEDTUBE PRN PRN For Clogged Feeding Tube Sodium Chloride 10 ml 03/08/21 10:00 03/14/21 09:18 Sodium Chloride 0.9% 10 Ml Flush Syringe IV 10 ml BID MARCO ANTONIO Administration Sodium Chloride 10 ml 03/07/21 22:57 Sodium Chloride 0.9% 10 Ml Flush Syringe IV PRN PRN LINE FLUSH Tamsulosin HCl 0.4 mg 03/10/21 14:00 03/14/21 09:15 Tamsulosin 0.4 Mg Cap PO 0.4 mg QDAY MARCO ANTONIO Administration Zinc Sulfate 220 mg 03/12/21 10:00 03/14/21 11:28 Zinc Sulfate 220 Mg Cap PO 220 mg QDAY MARCO ANTONIO Administration Nutrition/Malnutrition Assess - Dietary Evaluation Nutrition/Malnutrition Findings: Nutrition Notes Start: 03/08/21 12:27 Freq: Status: Active Protocol: Document 03/13/21 13:36 (Rec: 03/13/21 13:42 [email or web address]) Nutrition Notes Initial or Follow up Reassessment Current Diagnosis Sepsis,Respiratory Failure Other Pertinent Diagnosis Pneu, r/o COVID-19, pulmonary embolism Current Diet Vital AF at 50 ml/hr Labs/Tests BUN 18 Cr 0.4 BG 316 Pertinent Medications Decadron Height 5 ft Weight 102.8 kg [place] Body Weight (kg) 45.45 BMI 44.2 Weight Status Morbidly Obese Subjective/Other Information FU for TF tolerance. RN reports no BM yet and MD to add laxitive. Pt with no N/V today. RN states she will increase TF per order. Per xray report, pt may have foreign bodies in abd. 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 Yes Is Patient Ambulatory and/or Out of Bed No REE-([place]-confined to bed) 1904.676 Kcal/Kg value to use for calculation 14 Approximate Energy Requirements Using 1439 kcal/Kg Calculation Used for Recommendations Kcal/kg Additional Notes Pro needs up to 2.5g/kg IBW: 114g/day Fluid needs 1ml/kcal Nutrition Intervention Change Diet Order: Contiue Nutrition Support: Vital AF 1.2 at 50ml/hr with 80ml water flush q4h. Kcal 1,440 Protein (gm) 90 Carbohydrates (gm) 133 Fat (gm) 65 Fluid (mL) 937 Fiber (gm) 6 Goal #1 TF tolerance Goal #2 TF (at goal rate) to meet at least 75% energy and pro needs Anticipated Discharge Needs: Unable to determine at this time Follow-Up By: 03/15/21 Additional Comments FU for stable TF <GIACOMO ROSE - Last Filed: 03/14/21 17:02> Assessment and Plan Assessment and plan: Agree with assessment and plan as outlined above by nurse practitioner provider. Patient seen and examined, Polish-speaking, remains somewhat confused, intubated. Awake, moving upper extremities. We will continue to treat patient, attempt to wean off of the vent. Hospitalist Physical - Constitutional Vitals: Temp Pulse Resp BP Pulse Ox 98.7 F 58 L 18 133/52 96 03/14/21 12:00 03/14/21 16:00 03/14/21 16:00 03/14/21 16:00 03/14/21 16:00 HEART Score - HEART Score Troponin: Troponin T 0.085 ng/mL (0.00-0.029) H 06/08/21 20:31 Results - Labs CBC & Chem 7: 03/14/21 08:35 03/14/21 08:35 Labs: Laboratory Last Values WBC 21.9 K/mm3 (4.5-11.0) H 03/14/21 08:35 RBC 3.97 M/mm3 (3.65-5.03) 03/14/21 08:35 Hgb 11.2 gm/dl (10.1-14.3) 03/14/21 08:35 Hct 34.6 % (30.3-42.9) 03/14/21 08:35 MCV 87 fl (79-97) 03/14/21 08:35 MCH 28 pg (28-32) 03/14/21 08:35 MCHC 32 % (30-34) 03/14/21 08:35 RDW 15.4 % (13.2-15.2) H 03/14/21 08:35 Plt Count 180 K/mm3 (140-440) 03/14/21 08:35 Lymph % (Auto) Final Dressing Cutter 03/07/21 21:04 [place] % (Auto) Final Dressing Cutter 03/07/21 21:04 Eos % (Auto) Final Dressing Cutter 03/07/21 21:04 Baso % (Auto) Final Dressing Cutter 03/07/21 21:04 Lymph # (Auto) Final Dressing Cutter 03/07/21 21:04 [place] # (Auto) Final Dressing Cutter 03/07/21 21:04 Eos # (Auto) Final Dressing Cutter 03/07/21 21:04 Baso # (Auto) Final Dressing Cutter 03/07/21 21:04 Add Manual Diff Complete 03/10/21 01:12 Total Counted 100 03/10/21 01:12 Seg Neutrophils % Final Dressing Cutter 03/10/21 01:12 Seg Neuts % (Manual) 89.0 % (40.0-70.0) H 03/10/21 01:12 Band Neutrophils % 11.0 % 03/09/21 12:10 Lymphocytes % (Manual) 6.0 % (13.4-35.0) L 03/10/21 01:12 Monocytes % (Manual) 5.0 % (0.0-7.3) 03/10/21 01:12 Metamyelocytes % 1.0 % 03/09/21 12:10 Myelocytes % 1.0 % 03/09/21 12:10 Nucleated RBC % Not Reportable 03/10/21 01:12 Seg Neutrophils # Final Dressing Cutter 03/07/21 21:04 Seg Neutrophils # Man 20.1 K/mm3 (1.8-7.7) H 03/10/21 01:12 Band Neutrophils # 0.0 K/mm3 03/10/21 01:12 Lymphocytes # (Manual) 1.4 K/mm3 (1.2-5.4) 03/10/21 01:12 Abs React Lymphs (Man) 0.0 K/mm3 03/10/21 01:12 Monocytes # (Manual) 1.1 K/mm3 (0.0-0.8) H 03/10/21 01:12 Eosinophils # (Manual) 0.0 K/mm3 (0.0-0.4) 03/10/21 01:12 Basophils # (Manual) 0.0 K/mm3 (0.0-0.1) 03/10/21 01:12 Metamyelocytes # 0.0 K/mm3 03/10/21 01:12 Myelocytes # 0.0 K/mm3 03/10/21 01:12 Promyelocytes # 0.0 K/mm3 03/10/21 01:12 Blast Cells # 0.0 K/mm3 03/10/21 01:12 WBC Morphology Not Reportable 03/10/21 01:12 Hypersegmented Neuts Not Reportable 03/10/21 01:12 Hyposegmented Neuts Not Reportable 03/10/21 01:12 Hypogranular Neuts Not Reportable 03/10/21 01:12 Smudge Cells Not Reportable 03/10/21 01:12 Toxic Granulation Not Reportable 03/10/21 01:12 Toxic Vacuolation Not Reportable 03/10/21 01:12 Dohle Bodies Not Reportable 03/10/21 01:12 Pelger-Huet Anomaly Not Reportable 03/10/21 01:12 Jarrett Rods Not Reportable 03/10/21 01:12 Platelet Estimate Not Reportable 03/10/21 01:12 Clumped Platelets Not Reportable 03/10/21 01:12 Plt Clumps, EDTA Not Reportable 03/10/21 01:12 Large Platelets Not Reportable 03/10/21 01:12 Giant Platelets Not Reportable 03/10/21 01:12 Platelet Satelliting Not Reportable 03/10/21 01:12 Plt Morphology Comment Not Reportable 03/10/21 01:12 RBC Morphology Normal 03/10/21 01:12 Dimorphic RBCs Not Reportable 03/10/21 01:12 Polychromasia Not Reportable 03/10/21 01:12 Hypochromasia Not Reportable 03/10/21 01:12 Poikilocytosis Not Reportable 03/10/21 01:12 Anisocytosis Not Reportable 03/10/21 01:12 Microcytosis Not Reportable 03/10/21 01:12 Macrocytosis Not Reportable 03/10/21 01:12 Spherocytes Not Reportable 03/10/21 01:12 Pappenheimer Bodies Not Reportable 03/10/21 01:12 Sickle Cells Not Reportable 03/10/21 01:12 Target Cells Not Reportable 03/10/21 01:12 Tear Drop Cells Not Reportable 03/10/21 01:12 Ovalocytes Not Reportable 03/10/21 01:12 Helmet Cells Not Reportable 03/10/21 01:12 Agustin-Eckley Bodies Not Reportable 03/10/21 01:12 [place] Rings Not Reportable 03/10/21 01:12 Brant Cells Not Reportable 03/10/21 01:12 Bite Cells Not Reportable 03/10/21 01:12 Crenated Cell Not Reportable 03/10/21 01:12 Elliptocytes Not Reportable 03/10/21 01:12 Acanthocytes (Spur) Not Reportable 03/10/21 01:12 Rouleaux Not Reportable 03/10/21 01:12 Hemoglobin C Crystals Not Reportable 03/10/21 01:12 Schistocytes Not Reportable 03/10/21 01:12 Malaria parasites Not Reportable 03/10/21 01:12 Joss Bodies Not Reportable 03/10/21 01:12 Hem Pathologist Commnt No 03/10/21 01:12 PT 18.5 Sec. (12.2-14.9) H 03/08/21 07:55 INR 1.49 (0.87-1.13) H 03/08/21 07:55 APTT 113.5 Sec. (24.2-36.6) H* 03/08/21 07:55 D-Dimer 4053.87 ng/mlDDU (0-234) H 03/14/21 08:35 Heparin Anti-Xa Level < 0.10 U.I./ml (0.3-0.7) L 03/14/21 08:35 Heparin Anti-Xa, Unfract Negative (Negative) 03/08/21 13:00 ABG pH 7.465 (7.320-7.450) H 03/13/21 05:58 POC ABG pCO2 39.4 mmHg (32.0-48.0) 03/13/21 05:58 ABG pCO2 39.5 mm Hg 03/07/21 Unknown POC ABG pO2 79.5 mmHg (83-108) L 03/13/21 05:58 ABG pO2 62.6 mm Hg (80.0-90.0) L 03/07/21 Unknown POC ABG HCO3 27.7 03/13/21 05:58 ABG HCO3 20.7 mmol/L (20.0-26.0) 03/07/21 Unknown ABG O2 Saturation 95.6 (0-100) 03/13/21 05:58 ABG O2 Content 15.1 (0.0-44) 03/07/21 Unknown POC ABG Base Excess 3.7 03/13/21 05:58 ABG Base Excess -4.7 mmol/L (-2.0-3.0) L 03/07/21 Unknown ABG Hemoglobin 10.6 (12.0-17.5) L 03/13/21 05:58 ABG Oxyhemoglobin 94.9 (94-98) 03/13/21 05:58 ABG Carboxyhemoglobin 1.4 % (0.0-5.0) 03/07/21 Unknown ABG Methemoglobin 0.3 (0.0-1.5) 03/13/21 05:58 ABG Sodium 136.2 mmol/L (136.0-145.0) 03/13/21 05:58 ABG Potassium 4.3 mmol/L (3.40-4.50) 03/13/21 05:58 ABG Chloride 102.0 mmol/L (98-107) 03/13/21 05:58 ABG Glucose 319 mg/dL (65-95) H 03/13/21 05:58 Oxyhemoglobin 87.3 % (95.0-99.0) L 03/07/21 Unknown Carboxyhemoglobin 0.4 (0.5-1.5) L 03/13/21 05:58 FiO2 100 % 03/07/21 Unknown FiO2 % 40 03/13/21 05:58 Sodium 131 mmol/L (137-145) L D 03/14/21 08:35 Potassium 4.4 mmol/L (3.6-5.0) 03/14/21 08:35 Chloride 96.3 mmol/L (98-107) L 03/14/21 08:35 Carbon Dioxide 25 mmol/L (22-30) 03/14/21 08:35 Anion Gap 14 mmol/L 03/14/21 08:35 BUN 19 mg/dL (7-17) H 03/14/21 08:35 Creatinine 0.3 mg/dL (0.6-1.2) L 03/14/21 08:35 Estimated GFR > 60 ml/min 03/14/21 08:35 BUN/Creatinine Ratio 63 % 03/14/21 08:35 Glucose 265 mg/dL (65-100) H 03/14/21 08:35 POC Glucose 256 mg/dL (70-105) H 03/14/21 11:49 Lactic Acid 1.90 mmol/L (0.7-2.0) 03/10/21 01:12 Calcium 8.5 mg/dL (8.4-10.2) 03/14/21 08:35 Ferritin 209.5 ng/mL (10.0-200.0) H 03/14/21 08:35 Total Bilirubin 0.30 mg/dL (0.1-1.2) 03/11/21 04:40 AST 19 units/L (5-40) 03/11/21 04:40 ALT 12 units/L (7-56) 03/11/21 04:40 Alkaline Phosphatase 107 units/L (35-129) 03/11/21 04:40 Lactate Dehydrogenase 768 units/L (91-180) H 03/14/21 08:35 Troponin T 0.085 ng/mL (0.00-0.029) H 03/07/21 20:31 C-Reactive Protein 0.90 mg/dL (0.00-1.30) 03/14/21 08:35 Total Protein 6.1 g/dL (6.3-8.2) L 03/11/21 04:40 Albumin 3.2 g/dL (3.9-5) L 03/11/21 04:40 Albumin/Globulin Ratio 1.1 % 03/11/21 04:40 Triglycerides 213 mg/dL (2-149) H 03/07/21 20:31 Cholesterol 141 mg/dL (50-199) 03/07/21 20:31 LDL Cholesterol Direct 72 mg/dL (50-130) 03/07/21 20:31 HDL Cholesterol 34 mg/dL (40-59) L 03/07/21 20:31 Cholesterol/HDL Ratio 4.14 % 03/07/21 20:31 Serotonin Release Assay See scanned result 03/08/21 13:00 Procalcitonin 0.20 ng/mL (<0.15) 03/13/21 08:08 HCG, Qual Negative (Negative) 03/07/21 22:48 Arterial Blood Glucose 319 mg/dL (65-95) H 03/13/21 05:58 Arterial Blood Ionized Calcium 4.5 mg/dL (4.6-5.3) L 03/13/21 05:58 Urine Color Yellow (Yellow) 03/08/21 05:51 Urine Turbidity Clear (Clear) 03/08/21 05:51 Urine pH 6.0 (5.0-7.0) 03/08/21 05:51 Ur Specific [place] > 1.050 (1.003-1.030) H 03/08/21 05:51 Urine Protein 100 mg/dl mg/dL (Negative) 03/08/21 05:51 Urine Glucose (UA) Neg mg/dL (Negative) 03/08/21 05:51 Urine Ketones Neg mg/dL (Negative) 03/08/21 05:51 Urine Blood Neg (Negative) 03/08/21 05:51 Urine Nitrite Neg (Negative) 03/08/21 05:51 Urine Bilirubin Neg (Negative) 03/08/21 05:51 Urine Urobilinogen 4.0 mg/dL (<2.0) 03/08/21 05:51 Ur Leukocyte Esterase Neg (Negative) 03/08/21 05:51 Urine WBC (Auto) 5.0 /HPF (0.0-6.0) 03/08/21 05:51 Urine RBC (Auto) 5.0 /HPF (0.0-6.0) 03/08/21 05:51 U Epithel Cells (Auto) < 1.0 /HPF (0-13.0) 03/08/21 05:51 Urine Bacteria (Auto) 1+ /HPF (Negative) 03/08/21 05:51 Urine Mucus Few /HPF 03/08/21 05:51 Heparin-induced Plt Ab Negative (Negative) 03/08/21 13:00 UF Heparin High Dose 0 % Release 03/08/21 13:00 JESSY UFH Low Dose 0.1 0 % Release 03/08/21 13:00 JESSY UFH Low Dose 0.5 0 % Release 03/08/21 13:00 Coronavirus (PCR) Positive (Negative) A 03/07/21 Unknown Microbiology: Microbiology 03/10/21 04:32 Peripheral/Venous Blood Culture - Preliminary NO GROWTH AFTER 4 DAYS 03/10/21 01:12 Peripheral/Venous Blood Culture - Preliminary NO GROWTH AFTER 4 DAYS Maya/IV: Voiding Method Indwelling Catheter Active Medications - Current Medications Current Medications: Generic Name Dose Route Start Last Admin Trade Name Freq PRN Reason Stop Dose Admin Acetaminophen 650 mg 03/10/21 00:30 Acetaminophen 650 Mg Rect Supp VT Q4H PRN Pain, Mild (1-3) Lipase/Protease/Amylase 1 each 03/08/21 13:40 Lipase 10,500/Protease 25,000/Amylase 43,750 (Units) Dr Coreas FEEDTUBE PRN PRN For Clogged Feeding Tube Ascorbic Acid 1,000 mg 03/12/21 10:00 03/14/21 09:16 Ascorbic Acid 500 Mg Tab PO 1,000 mg BID MARCO ANTONIO Administration Cholecalciferol 5,000 unit 03/12/21 10:00 03/14/21 09:15 Cholecalciferol (Vit D3) 5,000 Unit Tab PO 5,000 unit DAILY MARCO ANTONIO Administration Dexamethasone 8 mg 03/08/21 10:00 03/14/21 09:17 Dexamethasone 4 Mg/Ml Vial IV 03/17/21 10:01 8 mg DAILY MARCO ANTONIO Administration Dextrose 50 ml 03/07/21 22:57 Dextrose 50% In Water (25gm) 50 Ml Syringe IV Q30MIN PRN Hypoglycemia Protocol Famotidine 20 mg 03/13/21 10:00 03/14/21 09:15 Famotidine 20 Mg Tab PO 20 mg BID MARCO ANTONIO Administration Fentanyl 50 mcg 03/07/21 21:20 03/07/21 22:13 Fentanyl 100 Mcg/2 Ml Inj IV 50 mcg Q10MIN PRN Administration ANALGESIA Heparin Sodium (Porcine) 8,000 unit 03/08/21 03:37 03/14/21 11:30 Heparin 10,000 Units/10 Ml Vial 40 unit/kg (8000 unit) 8,000 unit IV Administration Q6H PRN Anti-Xa Assay < 0.1 units/ml Hydrophilic Ointment 1 applic 03/08/21 12:42 Lip Therapy Vaseline TP Q2HR PRN Dry Lips Propofol 1,000 mg in 100 mls @ 3.084 mls/hr 03/07/21 21:00 03/14/21 10:00 Diprivan 10 Mg/Ml IV 20 mcg/kg/min TITR MARCO ANTONIO 12.336 mls/hr Titration Protocol 5 MCG/KG/MIN Fentanyl Citrate 2,000 mcg in 100 mls @ 5.14 mls/hr 03/07/21 22:00 03/14/21 09:15 Fentanyl Drip Premix IV 2 mcg/kg/hr TITR MARCO ANTONIO 10.28 mls/hr Administration Protocol 1 MCG/KG/HR Norepinephrine 4 mg in 250 mls @ 7.5 mls/hr 03/07/21 23:45 03/08/21 08:15 Levophed Drip 4 Mg/Ns 250 Ml IV 0 mcg/min TITR MARCO ANTONIO 0 mls/hr Titration Protocol 2 MCG/MIN Heparin Sodium/Sodium Chloride 25,000 unit in 500 mls @ 30 mls/hr 03/08/21 04:00 03/14/21 11:29 Heparin/ 0.45% Nacl-25,000 Unit/500 Ml IV 2,100 units/hr TITR MARCO ANTONIO 42 mls/hr Titration Protocol 1,500 UNITS/HR Insulin Glargine 35 units 03/14/21 22:00 Insulin Glargine 100 Units/Ml SUB-Q QHS MARCO ANTONIO Insulin Human Lispro 0 unit 03/08/21 12:00 03/14/21 13:02 Insulin Lispro 100 Unit/Ml SUB-Q 6 unit Q6HR MARCO ANTONIO Administration Protocol Magnesium Hydroxide 30 ml 03/07/21 22:57 03/13/21 10:13 Magnesium Hydroxide (Mom) Oral Liqd Udc PO 30 ml Q4H PRN Administration Constipation Morphine Sulfate 2 mg 03/07/21 22:57 03/09/21 21:29 Morphine 2 Mg/1 Ml Inj IV 2 mg Q4H PRN Administration Pain, Moderate (4-6) Multi-Ingred Cream/Lotion/Oil/Oint 1 applic 03/08/21 12:42 Mineral Oil/Petrolatum, White Ophth Oint 3.5 Gm OU Q4HR PRN Dry Eye(s) Ondansetron HCl 4 mg 03/07/21 22:57 Ondansetron 4 Mg/2 Ml Inj IV Q8H PRN Nausea And Vomiting Senna/Docusate Sodium 1 tab 03/08/21 22:00 03/14/21 09:15 Sennosides/Docusate Sodium 8.6/50 Mg Tab FEEDTUBE 1 tab BID MARCO ANTONIO Administration Simple Syrup 15 ml 03/08/21 13:40 Simple Syrup 15 Ml FEEDTUBE PRN PRN Hypoglycemia Simple Syrup 30 ml 03/08/21 13:40 Simple Syrup 15 Ml FEEDTUBE PRN PRN Hypoglycemia Sodium Bicarbonate 325 mg 03/08/21 13:40 Sodium Bicarbonate 325 Mg Tab FEEDTUBE PRN PRN For Clogged Feeding Tube Sodium Chloride 10 ml 03/08/21 10:00 03/14/21 09:18 Sodium Chloride 0.9% 10 Ml Flush Syringe IV 10 ml BID MARCO ANTONIO Administration Sodium Chloride 10 ml 03/07/21 22:57 Sodium Chloride 0.9% 10 Ml Flush Syringe IV PRN PRN LINE FLUSH Tamsulosin HCl 0.4 mg 03/10/21 14:00 03/14/21 09:15 Tamsulosin 0.4 Mg Cap PO 0.4 mg QDAY MARCO ANTONIO Administration Zinc Sulfate 220 mg 03/12/21 10:00 03/14/21 11:28 Zinc Sulfate 220 Mg Cap PO 220 mg QDAY MARCO ANTONIO Administration Nutrition/Malnutrition Assess - Dietary Evaluation Nutrition/Malnutrition Findings: Nutrition Notes Start: 03/08/21 12:27 Freq: Status: Active Protocol: Document 03/13/21 13:36 (Rec: 03/13/21 13:42 [email or web address]) Nutrition Notes Initial or Follow up Reassessment Current Diagnosis Sepsis,Respiratory Failure Other Pertinent Diagnosis Pneu, r/o COVID-19, pulmonary embolism Current Diet Vital AF at 50 ml/hr Labs/Tests BUN 18 Cr 0.4 BG 316 Pertinent Medications Decadron Height 5 ft Weight 102.8 kg [place] Body Weight (kg) 45.45 BMI 44.2 Weight Status Morbidly Obese Subjective/Other Information FU for TF tolerance. RN reports no BM yet and MD to add laxitive. Pt with no N/V today. RN states she will increase TF per order. Per xray report, pt may have foreign bodies in abd. 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 Yes Is Patient Ambulatory and/or Out of Bed No REE-([place]-St. Jeor-confined to bed) 1904.676 Kcal/Kg value to use for calculation 14 Approximate Energy Requirements Using 1439 kcal/Kg Calculation Used for Recommendations Kcal/kg Additional Notes Pro needs up to 2.5g/kg IBW: 114g/day Fluid needs 1ml/kcal Nutrition Intervention Change Diet Order: Contiue Nutrition Support: Vital AF 1.2 at 50ml/hr with 80ml water flush q4h. Kcal 1,440 Protein (gm) 90 Carbohydrates (gm) 133 Fat (gm) 65 Fluid (mL) 937 Fiber (gm) 6 Goal #1 TF tolerance Goal #2 TF (at goal rate) to meet at least 75% energy and pro needs Anticipated Discharge Needs: Unable to determine at this time Follow-Up By: 03/15/21 Additional Comments FU for stable TF
[2021-03-14] MEDS ORDERED: ALTEPLASE 2 MG INJ IV ONE (16:00)
[2021-03-14] MEDS ORDERED: INSULIN GLARGINE 100 UNITS/ML SUB-Q SCH (22:00)
[2021-03-15] MEDS: fentaNYL DRIP Premix 2,000 MCG/100 ML BAG IV SCH ×3 (02:07→19:56)
[2021-03-15] MEDS: HEPARIN/ 0.45% NACL DRIP 25,000 UNIT/500 ML BAG IV SCH ×2 (04:57→17:13)
[2021-03-15] MEDS: INSULIN LISPRO 100 UNIT/ML SUB-Q SCH ×4 (06:42→17:13)
[2021-03-15 06:45] LABS: Blood Urea Nitrogen 12 mg/dL (7-17); Calcium 8.6 mg/dL (8.4-10.2); Hemolysis Index 1
[2021-03-15 06:46] LABS: BUN/Creatinine Ratio 40
[2021-03-15] MEDS: ASCORBIC ACID 500 MG TAB PO SCH ×2 (09:46→22:20)
[2021-03-15] MEDS: SENNOSIDES/DOCUSATE SODIUM 8.6/50 MG TAB FEEDTUBE SCH ×2 (09:46→22:19)
[2021-03-15] MEDS: FAMOTIDINE 20 MG TAB PO SCH ×2 (09:46→22:20)
[2021-03-15] MEDS: CHOLECALCIFEROL (VIT D3) 5,000 UNIT TAB PO SCH (09:46)
[2021-03-15] MEDS: ZINC SULFATE 220 MG CAP PO SCH (09:50)
[2021-03-15] MEDS: TAMSULOSIN 0.4 MG CAP PO SCH (09:50)
[2021-03-15] MEDS: dexAMETHasone 4 MG/ML VIAL IV SCH (09:50)
[2021-03-15] MEDS ORDERED: INSULIN GLARGINE 100 UNITS/ML SUB-Q SCH (10:00)
[2021-03-15] MEDS ORDERED: LACTATED RINGERS 500 ML IV ONE (11:46)
[2021-03-15] MEDS ORDERED: SODIUM CHLORIDE 0.9% 500 ML 500 ML ONE (11:52)
--- NOTE | 2021-03-15 13:35 | Progress Note ---
Assessment and Plan Acute hypoxemic respiratory failure on MVS Severe sepsis with shock Bilateral pneumonia COVID-19 infection Obesity Bilateral pulmonary emboli Leukocytosis Thrombocytopenia Elevated serum inflammatory markers to include D-dimer and LDH Metabolic acidosis Lactic acidosis Non-ST elevation myocardial infarction Oropharyngeal dysphagia - begin Seroquel to spare IV sedation - wean Propofol to off per RASS scale - get another good peripheral or midline and discontinue RIJ CVL - repeat CXR in am - continue Daily SAT and SBT assessment as tolerated - continue full anticoagulation re: VTE - continue care as below otherwise; - continue to wean supplemental oxygen for target O2 sat's > 92% acutely\ - VAP bundle addressed - continue lung protective strategies - continue bronchodilators with pulmonary hygiene per RT - wean per pulmonary driven protocols otherwise - complete antiinfective's per ID rec's - continue accuchecks with glycemic control per SSI (While critically ill target blood glucose of 140-180 mg/dL; avoid hypoglycemia) - sedation prn for target RASS 0 to -1 - avoid nephrotoxins, renally dose all medications - continue to avoid benzodiazepine's, reduce the possibility of delirium - prn analgesia per CPOT score - Maintenance of sleep-wake cycle, avoid delirium - continue enteral nutritional support at goal rate as tolerated - G.I. & VTE prophylaxis - PT/OT/ROM exercises - continue mobility protocols for pressure ulcer prophylaxis - Monitor hemodynamics closely - continue other care per attending / other consultants - discharge planning ongoing concurrently COVID SPECIFIC INTERVENTIONS - Remdesivir as per ID/Pulmonary developed protocols (ordered) - continue systemic steroids for severe COVID-19 infection empirically 9Decadron 8 mg IV daily) - follow repeat COVID tests results - zinc and vitamin C supplementation - Monitor inflammatory markers per facility protocol - ferritin, Ddimer, CRP - therapeutic anticoagulation per system Protocol based on d-dimer and clinical considerations (full re: DVT / P.E.) - Continue contact and airborne isolation .... Re-evaluate in am & prn CONDITION: CRITICAL PROGNOSIS: GUARDED CODE STATUS: FULL CODE The high probability of a clinically significant, sudden or life-threatening deterioration of the [respiratory, cardiovascular & neurologic] system(s) required my full and direct attention, intervention and personal management. The aggregate critical care time was [35] minutes without overlap. Time includes spent on; [x] Data Review and interpretation [x] Patient assessment and monitoring of vital signs [x] Documentation [x] Medication orders and management Subjective Date of service: 03/15/21 Principal diagnosis: Ac. hypoxemic resp. failure; Septic Shock; COVID-19 Pneumonia; VTE; NSTEMI Interval history: Patient is seen today for: Acute hypoxemic respiratory failure; Severe sepsis with shock; Bilateral pneumonia; COVID-19 infection; Bilateral pulmonary emboli; Thrombocytopenia; NSTEMI Seen and examined at bedside; 24hour events reviewed; nursing and respiratory care staff consulted; no adverse overnight events reported to me; resting in bed; remains on MVS; weaning held due to severe agitation; no emesis or overt aspiration; afebrile Objective Vital Signs - 12hr 03/15/21 03/15/21 03/15/21 01:40 02:00 02:20 Temperature Pulse Rate 105 H 99 H 105 H Respiratory 16 20 23 Rate Blood Pressure 156/69 155/73 153/71 O2 Sat by Pulse 94 95 95 Oximetry 03/15/21 03/15/21 03/15/21 02:40 03:00 03:20 Temperature Pulse Rate 93 H 85 78 Respiratory 17 17 19 Rate Blood Pressure 172/63 138/53 134/54 O2 Sat by Pulse 95 97 96 Oximetry 03/15/21 03/15/21 03/15/21 03:22 03:40 04:00 Temperature 99.7 F H Pulse Rate 73 72 Respiratory 16 16 Rate Blood Pressure 134/54 95/44 O2 Sat by Pulse 96 94 Oximetry 03/15/21 03/15/21 03/15/21 04:20 04:40 05:00 Temperature Pulse Rate 62 67 73 Respiratory 17 18 23 Rate Blood Pressure 101/43 117/61 122/59 O2 Sat by Pulse 95 96 95 Oximetry 03/15/21 03/15/21 03/15/21 05:07 05:20 05:40 Temperature Pulse Rate 65 76 79 Respiratory 22 22 Rate Blood Pressure 117/61 118/47 118/47 O2 Sat by Pulse 97 95 95 Oximetry 03/15/21 03/15/21 03/15/21 06:00 06:20 06:40 Temperature Pulse Rate 116 H 100 H 104 H Respiratory 22 26 H 24 Rate Blood Pressure 142/85 113/86 177/92 O2 Sat by Pulse 89 95 96 Oximetry 03/15/21 03/15/21 03/15/21 07:00 07:20 07:40 Temperature Pulse Rate 111 H 102 H 89 Respiratory 30 H 16 22 Rate Blood Pressure 201/107 192/60 177/92 O2 Sat by Pulse 89 95 95 Oximetry 03/15/21 03/15/21 03/15/21 08:00 08:20 08:40 Temperature 99.0 F Pulse Rate 85 88 101 H Respiratory 23 26 H 25 H Rate Blood Pressure 182/65 188/62 187/89 O2 Sat by Pulse 96 96 96 Oximetry 03/15/21 03/15/21 03/15/21 08:50 09:00 09:20 Temperature Pulse Rate 82 76 111 H Respiratory 25 H 27 H Rate Blood Pressure 187/89 187/89 113/49 O2 Sat by Pulse 95 95 96 Oximetry 03/15/21 03/15/21 03/15/21 09:40 10:00 10:20 Temperature Pulse Rate 96 H 80 70 Respiratory 26 H 17 15 Rate Blood Pressure 141/67 82/26 70/32 O2 Sat by Pulse 94 94 93 Oximetry 03/15/21 03/15/21 03/15/21 10:40 11:00 11:20 Temperature Pulse Rate 68 68 63 Respiratory 18 16 16 Rate Blood Pressure 80/33 78/36 82/42 O2 Sat by Pulse 94 95 94 Oximetry 03/15/21 03/15/21 03/15/21 11:40 11:59 12:00 Temperature 98.7 F 98 F Pulse Rate 65 67 Respiratory 18 17 Rate Blood Pressure 89/47 98/53 O2 Sat by Pulse 91 94 Oximetry 03/15/21 03/15/21 03/15/21 12:20 12:40 12:51 Temperature Pulse Rate 68 73 73 Respiratory 17 22 Rate Blood Pressure 95/50 109/64 109/64 O2 Sat by Pulse 95 97 95 Oximetry 03/15/21 03/15/21 13:00 13:20 Temperature Pulse Rate 78 65 Respiratory 9 L 22 Rate Blood Pressure 124/57 109/59 O2 Sat by Pulse 96 92 Oximetry Constitutional: appears uncomfortable, other (middle aged obese female with mildly increased respiratory effort at rest on MVS) Eyes: non-icteric ENT: oropharynx moist, other (ETT 24 cm ZULEMA) Neck: supple, no lymphadenopathy, other (large circumference) Effort: mildly labored Ascultation: Bilateral: rales (bases) Percussion: Bilateral: not dull Cardiovascular: regular rate and rhythm Gastrointestinal: normoactive bowel sounds, soft, non-tender, non-distended (protuberant) Integumentary: normal Extremities: no cyanosis, no edema, pink and warm, pulses normal Neurologic: non-focal exam (grossly), pupils equal and round, CN II-XII normal, motor strength normal and, other (sedated) Psychiatric: anxious (when off sedation), other (unable to assess re: sedation) CBC and BMP: 03/14/21 08:35 03/15/21 06:00 ABG, PT/INR, D-dimer: ABG ABG pH 7.515 (7.320-7.450) H 03/15/21 03:10 POC ABG pCO2 35.4 mmHg (32.0-48.0) 03/15/21 03:10 ABG pCO2 39.5 mm Hg 03/07/21 Unknown POC ABG pO2 97.4 mmHg (83-108) 03/15/21 03:10 ABG pO2 62.6 mm Hg (80.0-90.0) L 03/07/21 Unknown POC ABG HCO3 27.9 03/15/21 03:10 ABG O2 Saturation 97.7 (0-100) 03/15/21 03:10 PT/INR, D-dimer PT 18.5 Sec. (12.2-14.9) H 03/08/21 07:55 INR 1.49 (0.87-1.13) H 03/08/21 07:55 D-Dimer 4053.87 ng/mlDDU (0-234) H 03/14/21 08:35 Abnormal lab findings: Abnormal Labs 03/07/21 03/07/21 03/07/21 13:00 20:31 20:31 WBC RBC Hgb Hct RDW Plt Count Seg Neuts % (Manual) Lymphocytes % (Manual) Nucleated RBC % Seg Neutrophils # Man Lymphocytes # (Manual) Monocytes # (Manual) PT INR APTT D-Dimer > 90556 H Heparin Anti-Xa Level ABG pH POC ABG pCO2 POC ABG pO2 ABG pO2 ABG O2 Saturation ABG Base Excess ABG Hemoglobin ABG Oxyhemoglobin ABG Sodium ABG Potassium ABG Chloride ABG Glucose Oxyhemoglobin Carboxyhemoglobin Sodium 133 L Chloride 94.6 L Carbon Dioxide 17 L BUN 22 H Creatinine Glucose 309 H POC Glucose Lactic Acid 5.10 H* Calcium Ferritin Lactate Dehydrogenase Troponin T 0.085 H C-Reactive Protein Total Protein Albumin 3.5 L Triglycerides 213 H HDL Cholesterol 34 L Arterial Blood Glucose Arterial Blood Ionized Calcium Ur Specific [place] Coronavirus (PCR) 03/07/21 03/07/21 03/07/21 20:31 21:04 21:28 WBC 31.6 H RBC Hgb Hct RDW 15.3 H Plt Count Seg Neuts % (Manual) 73.0 H Lymphocytes % (Manual) 11.5 L Nucleated RBC % 7.0 H Seg Neutrophils # Man 23.1 H Lymphocytes # (Manual) Monocytes # (Manual) 1.7 H PT INR APTT D-Dimer > 89942 H Heparin Anti-Xa Level ABG pH POC ABG pCO2 POC ABG pO2 ABG pO2 ABG O2 Saturation ABG Base Excess ABG Hemoglobin ABG Oxyhemoglobin ABG Sodium ABG Potassium ABG Chloride ABG Glucose Oxyhemoglobin Carboxyhemoglobin Sodium Chloride Carbon Dioxide BUN Creatinine Glucose 301 H POC Glucose Lactic Acid Calcium Ferritin Lactate Dehydrogenase 1259 H Troponin T C-Reactive Protein 25.50 H Total Protein Albumin Triglycerides HDL Cholesterol Arterial Blood Glucose Arterial Blood Ionized Calcium Ur Specific [place] Coronavirus (PCR) 03/07/21 03/07/21 03/07/21 21:28 22:48 Unknown WBC RBC Hgb Hct RDW Plt Count Seg Neuts % (Manual) Lymphocytes % (Manual) Nucleated RBC % Seg Neutrophils # Man Lymphocytes # (Manual) Monocytes # (Manual) PT INR APTT D-Dimer Heparin Anti-Xa Level ABG pH POC ABG pCO2 POC ABG pO2 ABG pO2 ABG O2 Saturation ABG Base Excess ABG Hemoglobin ABG Oxyhemoglobin ABG Sodium ABG Potassium ABG Chloride ABG Glucose Oxyhemoglobin Carboxyhemoglobin Sodium Chloride Carbon Dioxide BUN Creatinine Glucose POC Glucose Lactic Acid 6.00 H* 3.40 H* Calcium Ferritin Lactate Dehydrogenase Troponin T C-Reactive Protein Total Protein Albumin Triglycerides HDL Cholesterol Arterial Blood Glucose Arterial Blood Ionized Calcium Ur Specific [place] Coronavirus (PCR) Positive A 03/07/21 03/08/21 03/08/21 Unknown 05:51 06:18 WBC 27.5 H RBC Hgb Hct RDW Plt Count 108 L Seg Neuts % (Manual) 85.0 H Lymphocytes % (Manual) 1.0 L Nucleated RBC % 7.0 H Seg Neutrophils # Man 23.4 H Lymphocytes # (Manual) 0.3 L Monocytes # (Manual) PT INR APTT D-Dimer Heparin Anti-Xa Level ABG pH 7.338 L POC ABG pCO2 POC ABG pO2 ABG pO2 62.6 L ABG O2 Saturation 89.1 L ABG Base Excess -4.7 L ABG Hemoglobin ABG Oxyhemoglobin ABG Sodium ABG Potassium ABG Chloride ABG Glucose Oxyhemoglobin 87.3 L Carboxyhemoglobin Sodium Chloride Carbon Dioxide BUN Creatinine Glucose POC Glucose Lactic Acid Calcium Ferritin Lactate Dehydrogenase Troponin T C-Reactive Protein Total Protein Albumin Triglycerides HDL Cholesterol Arterial Blood Glucose Arterial Blood Ionized Calcium Ur Specific [place] > 1.050 H Coronavirus (PCR) 03/08/21 03/08/21 03/08/21 06:18 06:18 07:29 WBC RBC Hgb Hct RDW Plt Count Seg Neuts % (Manual) Lymphocytes % (Manual) Nucleated RBC % Seg Neutrophils # Man Lymphocytes # (Manual) Monocytes # (Manual) PT 20.3 H INR 1.69 H APTT D-Dimer Heparin Anti-Xa Level ABG pH POC ABG pCO2 POC ABG pO2 ABG pO2 ABG O2 Saturation ABG Base Excess ABG Hemoglobin ABG Oxyhemoglobin ABG Sodium ABG Potassium ABG Chloride ABG Glucose Oxyhemoglobin Carboxyhemoglobin Sodium Chloride Carbon Dioxide BUN 21 H Creatinine Glucose 188 H POC Glucose 192 H Lactic Acid Calcium 6.8 L D Ferritin Lactate Dehydrogenase Troponin T C-Reactive Protein Total Protein Albumin Triglycerides HDL Cholesterol Arterial Blood Glucose Arterial Blood Ionized Calcium Ur Specific [place] Coronavirus (PCR) 03/08/21 03/08/21 03/08/21 07:55 08:06 11:35 WBC RBC Hgb Hct RDW Plt Count Seg Neuts % (Manual) Lymphocytes % (Manual) Nucleated RBC % Seg Neutrophils # Man Lymphocytes # (Manual) Monocytes # (Manual) PT 18.5 H INR 1.49 H APTT 113.5 H* D-Dimer Heparin Anti-Xa Level ABG pH 7.311 L POC ABG pCO2 POC ABG pO2 ABG pO2 ABG O2 Saturation ABG Base Excess ABG Hemoglobin 11.8 L ABG Oxyhemoglobin ABG Sodium ABG Potassium ABG Chloride 111.0 H ABG Glucose 176 H Oxyhemoglobin Carboxyhemoglobin 0.4 L Sodium Chloride Carbon Dioxide BUN Creatinine Glucose POC Glucose 142 H Lactic Acid Calcium Ferritin Lactate Dehydrogenase Troponin T C-Reactive Protein Total Protein Albumin Triglycerides HDL Cholesterol Arterial Blood Glucose 176 H Arterial Blood Ionized Calcium 4.1 L Ur Specific [place] Coronavirus (PCR) 03/08/21 03/08/21 03/08/21 13:00 16:59 21:00 WBC RBC Hgb Hct RDW Plt Count Seg Neuts % (Manual) Lymphocytes % (Manual) Nucleated RBC % Seg Neutrophils # Man Lymphocytes # (Manual) Monocytes # (Manual) PT INR APTT D-Dimer Heparin Anti-Xa Level 0.22 L ABG pH POC ABG pCO2 30.1 L POC ABG pO2 74.9 L ABG pO2 ABG O2 Saturation ABG Base Excess ABG Hemoglobin 10.0 L ABG Oxyhemoglobin 93.8 L ABG Sodium ABG Potassium ABG Chloride 113.0 H ABG Glucose 250 H Oxyhemoglobin Carboxyhemoglobin 0.3 L Sodium Chloride Carbon Dioxide BUN Creatinine Glucose POC Glucose 196 H Lactic Acid Calcium Ferritin Lactate Dehydrogenase Troponin T C-Reactive Protein Total Protein Albumin Triglycerides HDL Cholesterol Arterial Blood Glucose 250 H Arterial Blood Ionized Calcium 4.0 L Ur Specific [place] Coronavirus (PCR) 03/08/21 03/08/21 03/09/21 21:19 21:30 03:14 WBC RBC Hgb Hct RDW Plt Count Seg Neuts % (Manual) Lymphocytes % (Manual) Nucleated RBC % Seg Neutrophils # Man Lymphocytes # (Manual) Monocytes # (Manual) PT INR APTT D-Dimer Heparin Anti-Xa Level 0.16 L ABG pH POC ABG pCO2 31.0 L POC ABG pO2 80.4 L ABG pO2 ABG O2 Saturation ABG Base Excess ABG Hemoglobin 9.4 L ABG Oxyhemoglobin ABG Sodium ABG Potassium ABG Chloride 114.0 H ABG Glucose 249 H Oxyhemoglobin Carboxyhemoglobin 0.3 L Sodium Chloride Carbon Dioxide BUN Creatinine Glucose POC Glucose 250 H Lactic Acid Calcium Ferritin Lactate Dehydrogenase Troponin T C-Reactive Protein Total Protein Albumin Triglycerides HDL Cholesterol Arterial Blood Glucose 249 H Arterial Blood Ionized Calcium 4.1 L Ur Specific [place] Coronavirus (PCR) 03/09/21 03/09/21 03/09/21 05:26 06:31 11:25 WBC RBC Hgb Hct RDW Plt Count Seg Neuts % (Manual) Lymphocytes % (Manual) Nucleated RBC % Seg Neutrophils # Man Lymphocytes # (Manual) Monocytes # (Manual) PT INR APTT D-Dimer Heparin Anti-Xa Level ABG pH POC ABG pCO2 POC ABG pO2 ABG pO2 ABG O2 Saturation ABG Base Excess ABG Hemoglobin ABG Oxyhemoglobin ABG Sodium ABG Potassium ABG Chloride ABG Glucose Oxyhemoglobin Carboxyhemoglobin Sodium Chloride 110.6 H Carbon Dioxide 20 L BUN 22 H Creatinine Glucose 244 H POC Glucose 217 H 235 H Lactic Acid Calcium 6.7 L Ferritin Lactate Dehydrogenase Troponin T C-Reactive Protein Total Protein 5.6 L D Albumin 2.5 L Triglycerides HDL Cholesterol Arterial Blood Glucose Arterial Blood Ionized Calcium Ur Specific [place] Coronavirus (PCR) 03/09/21 03/09/21 03/09/21 12:10 17:29 23:13 WBC 24.1 H RBC 3.29 L Hgb 9.3 L Hct 28.7 L RDW 15.5 H Plt Count Seg Neuts % (Manual) 84.0 H Lymphocytes % (Manual) 1.0 L Nucleated RBC % 3.0 H Seg Neutrophils # Man 20.2 H Lymphocytes # (Manual) 0.2 L Monocytes # (Manual) PT INR APTT D-Dimer Heparin Anti-Xa Level ABG pH POC ABG pCO2 POC ABG pO2 ABG pO2 ABG O2 Saturation ABG Base Excess ABG Hemoglobin ABG Oxyhemoglobin ABG Sodium ABG Potassium ABG Chloride ABG Glucose Oxyhemoglobin Carboxyhemoglobin Sodium Chloride Carbon Dioxide BUN Creatinine Glucose POC Glucose 279 H 284 H Lactic Acid Calcium Ferritin Lactate Dehydrogenase Troponin T C-Reactive Protein Total Protein Albumin Triglycerides HDL Cholesterol Arterial Blood Glucose Arterial Blood Ionized Calcium Ur Specific [place] Coronavirus (PCR) 03/10/21 03/10/21 03/10/21 01:12 03:29 04:32 WBC 22.6 H 21.5 H RBC 3.31 L 3.33 L Hgb 9.3 L 9.4 L Hct 28.9 L 28.9 L RDW 15.3 H Plt Count Seg Neuts % (Manual) 89.0 H Lymphocytes % (Manual) 6.0 L Nucleated RBC % Seg Neutrophils # Man 20.1 H Lymphocytes # (Manual) Monocytes # (Manual) 1.1 H PT INR APTT D-Dimer Heparin Anti-Xa Level ABG pH POC ABG pCO2 26.7 L POC ABG pO2 148.7 H ABG pO2 ABG O2 Saturation ABG Base Excess ABG Hemoglobin 9.5 L ABG Oxyhemoglobin 98.3 H ABG Sodium ABG Potassium 4.7 H ABG Chloride 114.0 H ABG Glucose 263 H Oxyhemoglobin Carboxyhemoglobin 0.3 L Sodium Chloride Carbon Dioxide BUN Creatinine Glucose POC Glucose Lactic Acid Calcium Ferritin Lactate Dehydrogenase Troponin T C-Reactive Protein Total Protein Albumin Triglycerides HDL Cholesterol Arterial Blood Glucose 263 H Arterial Blood Ionized Calcium 4.4 L Ur Specific [place] Coronavirus (PCR) 03/10/21 03/10/21 03/10/21 04:32 04:32 05:26 WBC RBC Hgb Hct RDW Plt Count Seg Neuts % (Manual) Lymphocytes % (Manual) Nucleated RBC % Seg Neutrophils # Man Lymphocytes # (Manual) Monocytes # (Manual) PT INR APTT D-Dimer Heparin Anti-Xa Level ABG pH POC ABG pCO2 POC ABG pO2 ABG pO2 ABG O2 Saturation ABG Base Excess ABG Hemoglobin ABG Oxyhemoglobin ABG Sodium ABG Potassium ABG Chloride ABG Glucose Oxyhemoglobin Carboxyhemoglobin Sodium Chloride 112.2 H 111.0 H Carbon Dioxide 21 L 21 L BUN 24 H 25 H Creatinine Glucose 262 H 258 H POC Glucose 246 H Lactic Acid Calcium 7.5 L 7.3 L Ferritin Lactate Dehydrogenase Troponin T C-Reactive Protein Total Protein 5.8 L Albumin 2.8 L Triglycerides HDL Cholesterol Arterial Blood Glucose Arterial Blood Ionized Calcium Ur Specific [place] Coronavirus (PCR) 03/10/21 03/10/21 03/10/21 11:50 17:18 21:39 WBC RBC Hgb Hct RDW Plt Count Seg Neuts % (Manual) Lymphocytes % (Manual) Nucleated RBC % Seg Neutrophils # Man Lymphocytes # (Manual) Monocytes # (Manual) PT INR APTT D-Dimer Heparin Anti-Xa Level ABG pH POC ABG pCO2 POC ABG pO2 ABG pO2 ABG O2 Saturation ABG Base Excess ABG Hemoglobin ABG Oxyhemoglobin ABG Sodium ABG Potassium ABG Chloride ABG Glucose Oxyhemoglobin Carboxyhemoglobin Sodium Chloride Carbon Dioxide BUN Creatinine Glucose POC Glucose 234 H 248 H 242 H Lactic Acid Calcium Ferritin Lactate Dehydrogenase Troponin T C-Reactive Protein Total Protein Albumin Triglycerides HDL Cholesterol Arterial Blood Glucose Arterial Blood Ionized Calcium Ur Specific [place] Coronavirus (PCR) 03/10/21 03/11/21 03/11/21 22:39 02:12 04:40 WBC RBC Hgb Hct RDW Plt Count Seg Neuts % (Manual) Lymphocytes % (Manual) Nucleated RBC % Seg Neutrophils # Man Lymphocytes # (Manual) Monocytes # (Manual) PT INR APTT D-Dimer Heparin Anti-Xa Level ABG pH 7.481 H POC ABG pCO2 27.3 L POC ABG pO2 180.2 H ABG pO2 ABG O2 Saturation ABG Base Excess ABG Hemoglobin 11.2 L ABG Oxyhemoglobin 99.1 H ABG Sodium ABG Potassium ABG Chloride 111.0 H ABG Glucose 311 H Oxyhemoglobin Carboxyhemoglobin 0.2 L Sodium Chloride 108.6 H Carbon Dioxide 21 L BUN 23 H Creatinine Glucose 276 H POC Glucose 245 H Lactic Acid Calcium 8.0 L Ferritin Lactate Dehydrogenase Troponin T C-Reactive Protein Total Protein 6.1 L Albumin 3.2 L Triglycerides HDL Cholesterol Arterial Blood Glucose 311 H Arterial Blood Ionized Calcium 4.5 L Ur Specific [place] Coronavirus (PCR) 03/11/21 03/11/21 03/11/21 04:55 12:35 18:15 WBC RBC Hgb Hct RDW Plt Count Seg Neuts % (Manual) Lymphocytes % (Manual) Nucleated RBC % Seg Neutrophils # Man Lymphocytes # (Manual) Monocytes # (Manual) PT INR APTT D-Dimer Heparin Anti-Xa Level ABG pH POC ABG pCO2 POC ABG pO2 ABG pO2 ABG O2 Saturation ABG Base Excess ABG Hemoglobin ABG Oxyhemoglobin ABG Sodium ABG Potassium ABG Chloride ABG Glucose Oxyhemoglobin Carboxyhemoglobin Sodium Chloride Carbon Dioxide BUN Creatinine Glucose POC Glucose 260 H 273 H 283 H Lactic Acid Calcium Ferritin Lactate Dehydrogenase Troponin T C-Reactive Protein Total Protein Albumin Triglycerides HDL Cholesterol Arterial Blood Glucose Arterial Blood Ionized Calcium Ur Specific [place] Coronavirus (PCR) 03/11/21 03/12/21 03/12/21 23:17 04:00 05:39 WBC RBC Hgb Hct RDW Plt Count Seg Neuts % (Manual) Lymphocytes % (Manual) Nucleated RBC % Seg Neutrophils # Man Lymphocytes # (Manual) Monocytes # (Manual) PT INR APTT D-Dimer Heparin Anti-Xa Level ABG pH 7.463 H POC ABG pCO2 30.9 L POC ABG pO2 ABG pO2 ABG O2 Saturation ABG Base Excess ABG Hemoglobin 10.7 L ABG Oxyhemoglobin ABG Sodium ABG Potassium ABG Chloride ABG Glucose 310 H Oxyhemoglobin Carboxyhemoglobin 0.3 L Sodium Chloride Carbon Dioxide BUN Creatinine Glucose POC Glucose 280 H 278 H Lactic Acid Calcium Ferritin Lactate Dehydrogenase Troponin T C-Reactive Protein Total Protein Albumin Triglycerides HDL Cholesterol Arterial Blood Glucose 310 H Arterial Blood Ionized Calcium Ur Specific [place] Coronavirus (PCR) 03/12/21 03/12/21 03/12/21 05:52 05:52 13:02 WBC 41.7 H* RBC Hgb Hct RDW Plt Count Seg Neuts % (Manual) Lymphocytes % (Manual) Nucleated RBC % Seg Neutrophils # Man Lymphocytes # (Manual) Monocytes # (Manual) PT INR APTT D-Dimer Heparin Anti-Xa Level ABG pH POC ABG pCO2 POC ABG pO2 ABG pO2 ABG O2 Saturation ABG Base Excess ABG Hemoglobin ABG Oxyhemoglobin ABG Sodium ABG Potassium ABG Chloride ABG Glucose Oxyhemoglobin Carboxyhemoglobin Sodium Chloride 107.5 H Carbon Dioxide BUN Creatinine 0.5 L Glucose 297 H POC Glucose 345 H Lactic Acid Calcium 8.1 L Ferritin Lactate Dehydrogenase Troponin T C-Reactive Protein Total Protein Albumin Triglycerides HDL Cholesterol Arterial Blood Glucose Arterial Blood Ionized Calcium Ur Specific [place] Coronavirus (PCR) 03/12/21 03/12/21 03/13/21 17:11 23:32 04:00 WBC RBC Hgb Hct RDW Plt Count Seg Neuts % (Manual) Lymphocytes % (Manual) Nucleated RBC % Seg Neutrophils # Man Lymphocytes # (Manual) Monocytes # (Manual) PT INR APTT D-Dimer Heparin Anti-Xa Level 0.29 L ABG pH POC ABG pCO2 POC ABG pO2 ABG pO2 ABG O2 Saturation ABG Base Excess ABG Hemoglobin ABG Oxyhemoglobin ABG Sodium ABG Potassium ABG Chloride ABG Glucose Oxyhemoglobin Carboxyhemoglobin Sodium Chloride Carbon Dioxide BUN Creatinine Glucose POC Glucose 383 H 282 H Lactic Acid Calcium Ferritin Lactate Dehydrogenase Troponin T C-Reactive Protein Total Protein Albumin Triglycerides HDL Cholesterol Arterial Blood Glucose Arterial Blood Ionized Calcium Ur Specific [place] Coronavirus (PCR) 03/13/21 03/13/21 03/13/21 04:00 04:00 05:28 WBC 32.9 H RBC Hgb Hct RDW Plt Count Seg Neuts % (Manual) Lymphocytes % (Manual) Nucleated RBC % Seg Neutrophils # Man Lymphocytes # (Manual) Monocytes # (Manual) PT INR APTT D-Dimer Heparin Anti-Xa Level ABG pH POC ABG pCO2 POC ABG pO2 ABG pO2 ABG O2 Saturation ABG Base Excess ABG Hemoglobin ABG Oxyhemoglobin ABG Sodium ABG Potassium ABG Chloride ABG Glucose Oxyhemoglobin Carboxyhemoglobin Sodium Chloride Carbon Dioxide BUN 18 H Creatinine 0.4 L Glucose 316 H POC Glucose 318 H Lactic Acid Calcium Ferritin Lactate Dehydrogenase Troponin T C-Reactive Protein Total Protein Albumin Triglycerides HDL Cholesterol Arterial Blood Glucose Arterial Blood Ionized Calcium Ur Specific [place] Coronavirus (PCR) 03/13/21 03/13/21 03/13/21 05:58 12:41 13:41 WBC RBC Hgb Hct RDW Plt Count Seg Neuts % (Manual) Lymphocytes % (Manual) Nucleated RBC % Seg Neutrophils # Man Lymphocytes # (Manual) Monocytes # (Manual) PT INR APTT D-Dimer Heparin Anti-Xa Level ABG pH 7.465 H POC ABG pCO2 POC ABG pO2 79.5 L ABG pO2 ABG O2 Saturation ABG Base Excess ABG Hemoglobin 10.6 L ABG Oxyhemoglobin ABG Sodium ABG Potassium ABG Chloride ABG Glucose 319 H Oxyhemoglobin Carboxyhemoglobin 0.4 L Sodium Chloride Carbon Dioxide BUN Creatinine Glucose POC Glucose 304 H 342 H Lactic Acid Calcium Ferritin Lactate Dehydrogenase Troponin T C-Reactive Protein Total Protein Albumin Triglycerides HDL Cholesterol Arterial Blood Glucose 319 H Arterial Blood Ionized Calcium 4.5 L Ur Specific [place] Coronavirus (PCR) 03/13/21 03/13/21 03/14/21 17:23 23:14 04:52 WBC RBC Hgb Hct RDW Plt Count Seg Neuts % (Manual) Lymphocytes % (Manual) Nucleated RBC % Seg Neutrophils # Man Lymphocytes # (Manual) Monocytes # (Manual) PT INR APTT D-Dimer Heparin Anti-Xa Level ABG pH POC ABG pCO2 POC ABG pO2 ABG pO2 ABG O2 Saturation ABG Base Excess ABG Hemoglobin ABG Oxyhemoglobin ABG Sodium ABG Potassium ABG Chloride ABG Glucose Oxyhemoglobin Carboxyhemoglobin Sodium Chloride Carbon Dioxide BUN Creatinine Glucose POC Glucose 336 H 257 H 266 H Lactic Acid Calcium Ferritin Lactate Dehydrogenase Troponin T C-Reactive Protein Total Protein Albumin Triglycerides HDL Cholesterol Arterial Blood Glucose Arterial Blood Ionized Calcium Ur Specific [place] Coronavirus (PCR) 03/14/21 03/14/21 03/14/21 08:35 08:35 08:35 WBC 21.9 H RBC Hgb Hct RDW 15.4 H Plt Count Seg Neuts % (Manual) Lymphocytes % (Manual) Nucleated RBC % Seg Neutrophils # Man Lymphocytes # (Manual) Monocytes # (Manual) PT INR APTT D-Dimer 4053.87 H Heparin Anti-Xa Level < 0.10 L ABG pH POC ABG pCO2 POC ABG pO2 ABG pO2 ABG O2 Saturation ABG Base Excess ABG Hemoglobin ABG Oxyhemoglobin ABG Sodium ABG Potassium ABG Chloride ABG Glucose Oxyhemoglobin Carboxyhemoglobin Sodium 131 L D Chloride 96.3 L Carbon Dioxide BUN 19 H Creatinine 0.3 L Glucose 265 H POC Glucose Lactic Acid Calcium Ferritin Lactate Dehydrogenase 768 H Troponin T C-Reactive Protein Total Protein Albumin Triglycerides HDL Cholesterol Arterial Blood Glucose Arterial Blood Ionized Calcium Ur Specific [place] Coronavirus (PCR) 03/14/21 03/14/21 03/14/21 08:35 11:49 16:50 WBC RBC Hgb Hct RDW Plt Count Seg Neuts % (Manual) Lymphocytes % (Manual) Nucleated RBC % Seg Neutrophils # Man Lymphocytes # (Manual) Monocytes # (Manual) PT INR APTT D-Dimer Heparin Anti-Xa Level ABG pH 7.518 H POC ABG pCO2 POC ABG pO2 ABG pO2 ABG O2 Saturation ABG Base Excess ABG Hemoglobin 11.0 L ABG Oxyhemoglobin ABG Sodium 130.5 L ABG Potassium ABG Chloride 95.0 L ABG Glucose 325 H Oxyhemoglobin Carboxyhemoglobin Sodium Chloride Carbon Dioxide BUN Creatinine Glucose POC Glucose 256 H Lactic Acid Calcium Ferritin 209.5 H Lactate Dehydrogenase Troponin T C-Reactive Protein Total Protein Albumin Triglycerides HDL Cholesterol Arterial Blood Glucose 325 H Arterial Blood Ionized Calcium 4.5 L Ur Specific [place] Coronavirus (PCR) 03/14/21 03/14/21 03/14/21 18:18 19:39 22:05 WBC RBC Hgb Hct RDW Plt Count Seg Neuts % (Manual) Lymphocytes % (Manual) Nucleated RBC % Seg Neutrophils # Man Lymphocytes # (Manual) Monocytes # (Manual) PT INR APTT D-Dimer Heparin Anti-Xa Level 0.19 L ABG pH POC ABG pCO2 POC ABG pO2 ABG pO2 ABG O2 Saturation ABG Base Excess ABG Hemoglobin ABG Oxyhemoglobin ABG Sodium ABG Potassium ABG Chloride ABG Glucose Oxyhemoglobin Carboxyhemoglobin Sodium Chloride Carbon Dioxide BUN Creatinine Glucose POC Glucose 299 H 276 H Lactic Acid Calcium Ferritin Lactate Dehydrogenase Troponin T C-Reactive Protein Total Protein Albumin Triglycerides HDL Cholesterol Arterial Blood Glucose Arterial Blood Ionized Calcium Ur Specific [place] Coronavirus (PCR) 03/14/21 03/15/21 03/15/21 23:47 03:10 05:13 WBC RBC Hgb Hct RDW Plt Count Seg Neuts % (Manual) Lymphocytes % (Manual) Nucleated RBC % Seg Neutrophils # Man Lymphocytes # (Manual) Monocytes # (Manual) PT INR APTT D-Dimer Heparin Anti-Xa Level ABG pH 7.515 H POC ABG pCO2 POC ABG pO2 ABG pO2 ABG O2 Saturation ABG Base Excess ABG Hemoglobin 11.0 L ABG Oxyhemoglobin ABG Sodium 131.4 L ABG Potassium ABG Chloride 95.0 L ABG Glucose 239 H Oxyhemoglobin Carboxyhemoglobin Sodium Chloride Carbon Dioxide BUN Creatinine Glucose POC Glucose 344 H 245 H Lactic Acid Calcium Ferritin Lactate Dehydrogenase Troponin T C-Reactive Protein Total Protein Albumin Triglycerides HDL Cholesterol Arterial Blood Glucose 239 H Arterial Blood Ionized Calcium 4.5 L Ur Specific [place] Coronavirus (PCR) 03/15/21 03/15/21 06:00 11:40 WBC RBC Hgb Hct RDW Plt Count Seg Neuts % (Manual) Lymphocytes % (Manual) Nucleated RBC % Seg Neutrophils # Man Lymphocytes # (Manual) Monocytes # (Manual) PT INR APTT D-Dimer Heparin Anti-Xa Level ABG pH POC ABG pCO2 POC ABG pO2 ABG pO2 ABG O2 Saturation ABG Base Excess ABG Hemoglobin ABG Oxyhemoglobin ABG Sodium ABG Potassium ABG Chloride ABG Glucose Oxyhemoglobin Carboxyhemoglobin Sodium 136 L Chloride 94.6 L Carbon Dioxide 31 H BUN Creatinine 0.3 L Glucose 227 H POC Glucose 224 H Lactic Acid Calcium Ferritin Lactate Dehydrogenase Troponin T C-Reactive Protein Total Protein Albumin Triglycerides HDL Cholesterol Arterial Blood Glucose Arterial Blood Ionized Calcium Ur Specific [place] Coronavirus (PCR) Chest x-ray: other (none today) Allied health notes reviewed: nursing
[2021-03-15] MEDS ORDERED: QUEtiapine 100 MG TAB PO SCH (15:00)
--- NOTE | 2021-03-15 15:07 | Progress Note ---
Assessment and Plan Cultures: Blood culture no growth so far Covid PCR: Positive A/P: 45-year-old female no past medical history admitted with COVID-19 pneumonia and bilateral pulmonary emboli. #Severe COVID-19 pneumonia: Patient presented with 3 days of symptoms, chest x- ray with diffuse bilateral infiltrates, admission O2 sats 50% on room air. Inflammatory markers elevated #Acute hypoxemic respiratory failure: Likely secondary to COVID-19 infection. Currently on the vent #Bilateral pulmonary emboli: Anticoagulation per primary #Obesity: Associated with worse COVID-19 outcomes. Recs: -Dexamethasone 6 mg IV/PO daily for 10 days -Completed remdesivir -Actemra 03/09/2021 -Obtain q48-72h inflammatory markers - ferritin, Ddimer, CRP, LDH -Completed antibiotics. white count improving, ongoing elevation may be due to steroids. -Anticoagulation per hospital protocol -Proning as able Thank you for the consult, we will continue to follow. Lay Finch MD [facility] O: [phone] F: [phone] Subjective Date of service: 03/15/21 Principal diagnosis: Ac. hypoxemic resp. failure; Septic Shock; COVID-19 Pneumonia; VTE; NSTEMI Interval history: Afebrile, white count continues to improve. No acute changes. Cultures remain negative. Remains on the vent. Objective - Exam Narrative Exam: Physical exam deferred to reduce risk of transmission of COVID-19. Please refer to primary team's note. - Constitutional Vitals: Vital Signs Temp Pulse Resp BP Pulse Ox 98 F 65 22 109/59 92 03/15/21 12:00 03/15/21 13:20 03/15/21 13:20 03/15/21 13:20 03/15/21 13:20 Temperature -Last 24 Hours Temperature 98 F Temperature 98.7 F Temperature 99.0 F Temperature 99.7 F Temperature 99.6 F Temperature 99.3 F Temperature 98.9 F - Labs CBC & Chem 7: 03/14/21 08:35 03/15/21 06:00 Labs: Abnormal lab results 03/14/21 03/14/21 03/14/21 Range/Units 16:50 18:18 19:39 Heparin Anti-Xa Level 0.19 L (0.3-0.7) U.I./ml ABG pH 7.518 H (7.320-7.450) ABG Hemoglobin 11.0 L (12.0-17.5) ABG Sodium 130.5 L (136.0-145.0) mmol/L ABG Chloride 95.0 L (98-107) mmol/L ABG Glucose 325 H (65-95) mg/dL Sodium (137-145) mmol/L Chloride (98-107) mmol/L Carbon Dioxide (22-30) mmol/L Creatinine (0.6-1.2) mg/dL Glucose (65-100) mg/dL POC Glucose 299 H (70-105) mg/dL Arterial Blood Glucose 325 H (65-95) mg/dL Arterial Blood Ionized Calcium 4.5 L (4.6-5.3) mg/dL 03/14/21 03/14/21 03/15/21 Range/Units 22:05 23:47 03:10 Heparin Anti-Xa Level (0.3-0.7) U.I./ml ABG pH 7.515 H (7.320-7.450) ABG Hemoglobin 11.0 L (12.0-17.5) ABG Sodium 131.4 L (136.0-145.0) mmol/L ABG Chloride 95.0 L (98-107) mmol/L ABG Glucose 239 H (65-95) mg/dL Sodium (137-145) mmol/L Chloride (98-107) mmol/L Carbon Dioxide (22-30) mmol/L Creatinine (0.6-1.2) mg/dL Glucose (65-100) mg/dL POC Glucose 276 H 344 H (70-105) mg/dL Arterial Blood Glucose 239 H (65-95) mg/dL Arterial Blood Ionized Calcium 4.5 L (4.6-5.3) mg/dL 03/15/21 03/15/21 03/15/21 Range/Units 05:13 06:00 11:40 Heparin Anti-Xa Level (0.3-0.7) U.I./ml ABG pH (7.320-7.450) ABG Hemoglobin (12.0-17.5) ABG Sodium (136.0-145.0) mmol/L ABG Chloride (98-107) mmol/L ABG Glucose (65-95) mg/dL Sodium 136 L (137-145) mmol/L Chloride 94.6 L (98-107) mmol/L Carbon Dioxide 31 H (22-30) mmol/L Creatinine 0.3 L (0.6-1.2) mg/dL Glucose 227 H (65-100) mg/dL POC Glucose 245 H 224 H (70-105) mg/dL Arterial Blood Glucose (65-95) mg/dL Arterial Blood Ionized Calcium (4.6-5.3) mg/dL
[2021-03-15] MEDS: fentaNYL 100 MCG/2 ML INJ IV PRN (15:18)
--- NOTE | 2021-03-15 15:22 | Progress Note ---
<KEITHRALPHDakota - Last Filed: 03/15/21 15:19> Assessment and Plan Assessment and plan: This is a 45-year-old female with no significant past medical history admitted to the hospital service with COVID-19 pneumonia, multiple peripheral bilateral lower lobe pulmonary emboli, septic shock, leukocytosis, hyponatremia, hyp ochloremia, metabolic acidosis, lactic acidosis. COVID-19 pneumonia Septic shock secondary to COVID-19 pneumonia Acute hypoxic respiratory failure Pulmonary embolism Left posterior tibial and peroneal veins DVT Leukocytosis Hypochloremia Pseudohyponatremia Metabolic acidosis Lactic acidosis (improved) Thrombocytopenia (improved-03/08 HIT NEGATIVE) Oropharyngeal dysphagia Urinary retention Hyperglycemia Acute metabolic encephalopathy Obesity -CCM, infectious disease consulted, appreciate recommendations -03/07 COVID-19 PCR positive -Droplet/aspiration precautions -Steroid therapy -Vitamin C, vitamin D, zinc -S/p remdesivir -S/p Actemra on 03/09/2021 -Antibiotic therapy -Continuous SPO2 monitoring -Wean mechanical ventilation as tolerated, VAP bundle -Pulmonary hygiene -Aspiration/seizure precautions -Propofol and fentanyl drip -Seroquel -Heparin drip -Bowel regimen -Tube feedings -SSI, Accu-Cheks every 6, long-acting insulin -Trend COVID-19 inflammatory markers, CBC, BMP DVT/GI prophylaxis: Systemic anticoagulation with heparin, PPI Disposition: ICU The high probability of a clinically significant, sudden or life threatening deterioration of the [pulmonary] system(s) required my full and direct attention, intervention and personal management. The aggregate critical care time was [35] minutes. This time is in addition to time spent performing reported procedures but includes the following: [X] Data Review and interpretation [X] Patient assessment and monitoring of vital signs [X] Documentation [X] Medication orders and management History Interval history: This is a 45-year-old female with significant past medical history presented to emergency department on 03/07 complaining of cough, shortness of breath and diarrhea for 3 days prior to arrival. Upon arrival to emergency department patient was found to be in respiratory distress and initial oxygen saturations were said to be in the 50s and patient was placed on a nonrebreather with improvement of oxygen saturations to 7 days. Patient was subsequently intubated in the emergency department and upon review patient did not receive COVID-19 vaccination. Work-up in the emergency department revealed bilateral pulmonary infiltrates on CXR, leukocytosis of 31,000, hyperglycemia with a blood glucose of 301, elevated D-dimer greater than 10,000., CTA chest showed multiple peripheral bilateral lower lobe pulmonary emboli. Patient was hypotensive in the emergency department and fluid resuscitated and started on vasopressors. Patient will be admitted to the hospital service with COVID-19 PUI, septic shock secondary to pneumonia, pulmonary emboli and acute hypoxic respiratory failure. [facility] and infectious disease were consulted. Patient was started on heparin drip. 03/08: New issues: Thrombocytosis question if this is secondary to HIT. We will send out HIT panel. Monitor platelets. Continue heparin drip at this time. Await pulmonary and ID input. 03/09: Patient noted to have Covid positive pneumonia ID input is appreciated patient on dexamethasone for complete 10 days of therapy now started on remdesivir due to hypoxia also to complete 5 days therapy and Actemra a one- time. We will continue to monitor -Obtain q48-72h inflammatory markers - ferritin, Ddimer, CRP, LDH -Continue ceftriaxone 2 gm IV qday and azithromycin 500 mg PO qday for 5 days given elevated procal -Anticoagulation per hospital protocol -Proning as able I also requested a stat CBC to further evaluate thrombocytosis that was noted yesterday. I called Serafin ring to update and got voicemail left a message. I also called James David but his phone is unable to accept messages at this time. 03/10: Possible ileus versus bowel obstruction. Will obtain KUB. Continue to hold tube feeds at this time. We will also obtain GI consult if no resolution. Also patient noted to have urinary retention we will proceed with placing a Maya catheter. She does follow commands some when off sedation but gets easily agitated. Continue ICU management at this point. 03/11: Blood sugar still elevated adjusted nighttime insulin for better coverage. KUB concerning for radiopaque object possible tablet. Was not present on 03 08. We will repeat a KUB in a.m. to see if resolution versus ileus. Continue current management for COVID-19. Continue heparin drip for noted pulmonary embolism. Platelets actually improved despite being on heparin doubt HIT. Patient still requires critical care monitoring. Altered mental status still present. 03/12: Worsening leukocytosis this could be secondary to steroids. We will give Lasix today in addition to empiric vitamins. Chest x-ray shows worsening opacities will monitor closely. Continue full mechanical ventilation and restraints for safety. 03/13: At the time my examination patient was on fentanyl at 3 mcg, heparin drip, pressure control ventilation with a rate of 20, pressure support of 20, FiO2 of 35% and PEEP of 12 and ECMO blood change patient ventilation to assist control tidal volume 450, rate of 14, PEEP of 10 in the morning. RN reported the patient did not have a BM since admission and [facility] ordered mag citrate x1. 03/14: SBT trial per [facility], leukocytosis and D-dimer is improving. Patient is hyperglycemic and long-acting insulin dosage has been increased. Patient has pseudohyponatremia today. Nurse reported that patient central line was not drawing back blood and Cathflo was ordered. No acute events reported overnight. 03/15: Patient is severely agitated and SBT trial was not attempted today. Patient remains hyperglycemic and insulin has been adjusted accordingly. [facility] will start the patient on Seroquel and attempt to wean propofol. Patient was hypotensive after sedation was increased and she received a 500 mL LR bolus today. We will obtain the ECG in the a.m. to assess QTc. RN to attempt to obtain PIV Hospitalist Physical - Constitutional Vitals: Temp Pulse Resp BP Pulse Ox 98 F 65 22 109/59 92 03/15/21 12:00 03/15/21 13:20 03/15/21 13:20 03/15/21 13:20 03/15/21 13:20 General appearance: Present: well-nourished, obese, other (Intubated and [place]) - EENT Eyes: Present: PERRL ENT: poor dentition - Neck Neck: Present: normal ROM - Respiratory Respiratory effort: normal Respiratory: bilateral: diminished - Cardiovascular Rhythm: regular Heart Sounds: Present: S1 & S2. Absent: systolic murmur, diastolic murmur - Extremities Extremities: no ischemia, pulses intact, pulses symmetrical, No edema, normal temperature, normal color Extremity abnormal: edema Peripheral Pulses: within normal limits - Abdominal General gastrointestinal: soft, non-tender, non-distended, hypoactive bowel sounds - Integumentary Integumentary: Present: warm, dry - Psychiatric Psychiatric: agitated - Neurologic Neurologic: moves all extremities - Allied Health Allied health notes reviewed: nursing, RT, social work HEART Score - HEART Score Troponin: Troponin T 0.085 ng/mL (0.00-0.029) H 03/07/21 20:31 Results - Labs CBC & Chem 7: 03/14/21 08:35 03/15/21 06:00 Labs: Laboratory Last Values WBC 21.9 K/mm3 (4.5-11.0) H 03/14/21 08:35 RBC 3.97 M/mm3 (3.65-5.03) 03/14/21 08:35 Hgb 11.2 gm/dl (10.1-14.3) 03/14/21 08:35 Hct 34.6 % (30.3-42.9) 03/14/21 08:35 MCV 87 fl (79-97) 03/14/21 08:35 MCH 28 pg (28-32) 03/14/21 08:35 MCHC 32 % (30-34) 03/14/21 08:35 RDW 15.4 % (13.2-15.2) H 03/14/21 08:35 Plt Count 180 K/mm3 (140-440) 03/14/21 08:35 Lymph % (Auto) At Risk Paraprofessional 03/07/21 21:04 [place] % (Auto) At Risk Paraprofessional 03/07/21 21:04 Eos % (Auto) At Risk Paraprofessional 03/07/21 21:04 Baso % (Auto) At Risk Paraprofessional 03/07/21 21:04 Lymph # (Auto) At Risk Paraprofessional 03/07/21 21:04 [place] # (Auto) At Risk Paraprofessional 03/07/21 21:04 Eos # (Auto) At Risk Paraprofessional 03/07/21 21:04 Baso # (Auto) At Risk Paraprofessional 03/07/21 21:04 Add Manual Diff Complete 03/10/21 01:12 Total Counted 100 03/10/21 01:12 Seg Neutrophils % At Risk Paraprofessional 03/10/21 01:12 Seg Neuts % (Manual) 89.0 % (40.0-70.0) H 03/10/21 01:12 Band Neutrophils % 11.0 % 03/09/21 12:10 Lymphocytes % (Manual) 6.0 % (13.4-35.0) L 03/10/21 01:12 Monocytes % (Manual) 5.0 % (0.0-7.3) 03/10/21 01:12 Metamyelocytes % 1.0 % 03/09/21 12:10 Myelocytes % 1.0 % 03/09/21 12:10 Nucleated RBC % Not Reportable 03/10/21 01:12 Seg Neutrophils # At Risk Paraprofessional 03/07/21 21:04 Seg Neutrophils # Man 20.1 K/mm3 (1.8-7.7) H 03/10/21 01:12 Band Neutrophils # 0.0 K/mm3 03/10/21 01:12 Lymphocytes # (Manual) 1.4 K/mm3 (1.2-5.4) 03/10/21 01:12 Abs React Lymphs (Man) 0.0 K/mm3 03/10/21 01:12 Monocytes # (Manual) 1.1 K/mm3 (0.0-0.8) H 03/10/21 01:12 Eosinophils # (Manual) 0.0 K/mm3 (0.0-0.4) 03/10/21 01:12 Basophils # (Manual) 0.0 K/mm3 (0.0-0.1) 03/10/21 01:12 Metamyelocytes # 0.0 K/mm3 03/10/21 01:12 Myelocytes # 0.0 K/mm3 03/10/21 01:12 Promyelocytes # 0.0 K/mm3 03/10/21 01:12 Blast Cells # 0.0 K/mm3 03/10/21 01:12 WBC Morphology Not Reportable 03/10/21 01:12 Hypersegmented Neuts Not Reportable 03/10/21 01:12 Hyposegmented Neuts Not Reportable 03/10/21 01:12 Hypogranular Neuts Not Reportable 03/10/21 01:12 Smudge Cells Not Reportable 03/10/21 01:12 Toxic Granulation Not Reportable 03/10/21 01:12 Toxic Vacuolation Not Reportable 03/10/21 01:12 Dohle Bodies Not Reportable 03/10/21 01:12 Pelger-Huet Anomaly Not Reportable 03/10/21 01:12 Jarrett Rods Not Reportable 03/10/21 01:12 Platelet Estimate Not Reportable 03/10/21 01:12 Clumped Platelets Not Reportable 03/10/21 01:12 Plt Clumps, EDTA Not Reportable 03/10/21 01:12 Large Platelets Not Reportable 03/10/21 01:12 Giant Platelets Not Reportable 03/10/21 01:12 Platelet Satelliting Not Reportable 03/10/21 01:12 Plt Morphology Comment Not Reportable 03/10/21 01:12 RBC Morphology Normal 03/10/21 01:12 Dimorphic RBCs Not Reportable 03/10/21 01:12 Polychromasia Not Reportable 03/10/21 01:12 Hypochromasia Not Reportable 03/10/21 01:12 Poikilocytosis Not Reportable 03/10/21 01:12 Anisocytosis Not Reportable 03/10/21 01:12 Microcytosis Not Reportable 03/10/21 01:12 Macrocytosis Not Reportable 03/10/21 01:12 Spherocytes Not Reportable 03/10/21 01:12 Pappenheimer Bodies Not Reportable 03/10/21 01:12 Sickle Cells Not Reportable 03/10/21 01:12 Target Cells Not Reportable 03/10/21 01:12 Tear Drop Cells Not Reportable 03/10/21 01:12 Ovalocytes Not Reportable 03/10/21 01:12 Helmet Cells Not Reportable 03/10/21 01:12 [place] Bodies Not Reportable 03/10/21 01:12 [place] Rings Not Reportable 03/10/21 01:12 Brant Cells Not Reportable 03/10/21 01:12 Bite Cells Not Reportable 03/10/21 01:12 Crenated Cell Not Reportable 03/10/21 01:12 Elliptocytes Not Reportable 03/10/21 01:12 Acanthocytes (Spur) Not Reportable 03/10/21 01:12 Rouleaux Not Reportable 03/10/21 01:12 Hemoglobin C Crystals Not Reportable 03/10/21 01:12 Schistocytes Not Reportable 03/10/21 01:12 Malaria parasites Not Reportable 03/10/21 01:12 Joss Bodies Not Reportable 03/10/21 01:12 Hem Pathologist Commnt No 03/10/21 01:12 PT 18.5 Sec. (12.2-14.9) H 03/08/21 07:55 INR 1.49 (0.87-1.13) H 03/08/21 07:55 APTT 113.5 Sec. (24.2-36.6) H* 03/08/21 07:55 D-Dimer 4053.87 ng/mlDDU (0-234) H 03/14/21 08:35 Heparin Anti-Xa Level 0.36 U.I./ml (0.3-0.7) 03/15/21 06:00 Heparin Anti-Xa, Unfract Negative (Negative) 03/08/21 13:00 ABG pH 7.515 (7.320-7.450) H 03/15/21 03:10 POC ABG pCO2 35.4 mmHg (32.0-48.0) 03/15/21 03:10 ABG pCO2 39.5 mm Hg 03/07/21 Unknown POC ABG pO2 97.4 mmHg (83-108) 03/15/21 03:10 ABG pO2 62.6 mm Hg (80.0-90.0) L 03/07/21 Unknown POC ABG HCO3 27.9 03/15/21 03:10 ABG HCO3 20.7 mmol/L (20.0-26.0) 03/07/21 Unknown ABG O2 Saturation 97.7 (0-100) 03/15/21 03:10 ABG O2 Content 15.1 (0.0-44) 03/07/21 Unknown POC ABG Base Excess 4.9 03/15/21 03:10 ABG Base Excess -4.7 mmol/L (-2.0-3.0) L 03/07/21 Unknown ABG Hemoglobin 11.0 (12.0-17.5) L 03/15/21 03:10 ABG Oxyhemoglobin 96.9 (94-98) 03/15/21 03:10 ABG Carboxyhemoglobin 1.4 % (0.0-5.0) 03/07/21 Unknown ABG Methemoglobin 0.3 (0.0-1.5) 03/15/21 03:10 ABG Sodium 131.4 mmol/L (136.0-145.0) L 03/15/21 03:10 ABG Potassium 3.5 mmol/L (3.40-4.50) 03/15/21 03:10 ABG Chloride 95.0 mmol/L (98-107) L 03/15/21 03:10 ABG Glucose 239 mg/dL (65-95) H 03/15/21 03:10 Oxyhemoglobin 87.3 % (95.0-99.0) L 03/07/21 Unknown Carboxyhemoglobin 0.5 (0.5-1.5) 03/15/21 03:10 FiO2 100 % 03/07/21 Unknown FiO2 % 35.0 03/15/21 03:10 Sodium 136 mmol/L (137-145) L 03/15/21 06:00 Potassium 3.7 mmol/L (3.6-5.0) 03/15/21 06:00 Chloride 94.6 mmol/L (98-107) L 03/15/21 06:00 Carbon Dioxide 31 mmol/L (22-30) H 03/15/21 06:00 Anion Gap 14 mmol/L 03/15/21 06:00 BUN 12 mg/dL (7-17) 03/15/21 06:00 Creatinine 0.3 mg/dL (0.6-1.2) L 03/15/21 06:00 Estimated GFR > 60 ml/min 03/15/21 06:00 BUN/Creatinine Ratio 40 % 03/15/21 06:00 Glucose 227 mg/dL (65-100) H 03/15/21 06:00 POC Glucose 224 mg/dL (70-105) H 03/15/21 11:40 Lactic Acid 1.90 mmol/L (0.7-2.0) 03/10/21 01:12 Calcium 8.6 mg/dL (8.4-10.2) 03/15/21 06:00 Ferritin 209.5 ng/mL (10.0-200.0) H 03/14/21 08:35 Total Bilirubin 0.30 mg/dL (0.1-1.2) 03/11/21 04:40 AST 19 units/L (5-40) 03/11/21 04:40 ALT 12 units/L (7-56) 03/11/21 04:40 Alkaline Phosphatase 107 units/L (35-129) 03/11/21 04:40 Lactate Dehydrogenase 768 units/L (91-180) H 03/14/21 08:35 Troponin T 0.085 ng/mL (0.00-0.029) H 03/07/21 20:31 C-Reactive Protein 0.90 mg/dL (0.00-1.30) 03/14/21 08:35 Total Protein 6.1 g/dL (6.3-8.2) L 03/11/21 04:40 Albumin 3.2 g/dL (3.9-5) L 03/11/21 04:40 Albumin/Globulin Ratio 1.1 % 03/11/21 04:40 Triglycerides 213 mg/dL (2-149) H 03/07/21 20:31 Cholesterol 141 mg/dL (50-199) 03/07/21 20:31 LDL Cholesterol Direct 72 mg/dL (50-130) 03/07/21 20:31 HDL Cholesterol 34 mg/dL (40-59) L 03/07/21 20:31 Cholesterol/HDL Ratio 4.14 % 03/07/21 20:31 Serotonin Release Assay See scanned result 03/08/21 13:00 Procalcitonin 0.20 ng/mL (<0.15) 03/13/21 08:08 HCG, Qual Negative (Negative) 03/07/21 22:48 Arterial Blood Glucose 239 mg/dL (65-95) H 03/15/21 03:10 Arterial Blood Ionized Calcium 4.5 mg/dL (4.6-5.3) L 03/15/21 03:10 Urine Color Yellow (Yellow) 03/08/21 05:51 Urine Turbidity Clear (Clear) 03/08/21 05:51 Urine pH 6.0 (5.0-7.0) 03/08/21 05:51 Ur Specific [place] > 1.050 (1.003-1.030) H 03/08/21 05:51 Urine Protein 100 mg/dl mg/dL (Negative) 03/08/21 05:51 Urine Glucose (UA) Neg mg/dL (Negative) 03/08/21 05:51 Urine Ketones Neg mg/dL (Negative) 03/08/21 05:51 Urine Blood Neg (Negative) 03/08/21 05:51 Urine Nitrite Neg (Negative) 03/08/21 05:51 Urine Bilirubin Neg (Negative) 03/08/21 05:51 Urine Urobilinogen 4.0 mg/dL (<2.0) 03/08/21 05:51 Ur Leukocyte Esterase Neg (Negative) 03/08/21 05:51 Urine WBC (Auto) 5.0 /HPF (0.0-6.0) 03/08/21 05:51 Urine RBC (Auto) 5.0 /HPF (0.0-6.0) 03/08/21 05:51 U Epithel Cells (Auto) < 1.0 /HPF (0-13.0) 03/08/21 05:51 Urine Bacteria (Auto) 1+ /HPF (Negative) 03/08/21 05:51 Urine Mucus Few /HPF 03/08/21 05:51 Heparin-induced Plt Ab Negative (Negative) 03/08/21 13:00 UF Heparin High Dose 0 % Release 03/08/21 13:00 JESSY UFH Low Dose 0.1 0 % Release 03/08/21 13:00 JESSY UFH Low Dose 0.5 0 % Release 03/08/21 13:00 Coronavirus (PCR) Positive (Negative) A 03/07/21 Unknown Microbiology: Microbiology 03/10/21 04:32 Peripheral/Venous Blood Culture - Final NO GROWTH AFTER 5 DAYS 03/10/21 01:12 Peripheral/Venous Blood Culture - Final NO GROWTH AFTER 5 DAYS Maya/IV: Voiding Method Indwelling Catheter Active Medications - Current Medications Current Medications: Generic Name Dose Route Start Last Admin Trade Name Freq PRN Reason Stop Dose Admin Acetaminophen 650 mg 03/10/21 00:30 Acetaminophen 650 Mg Rect Supp KS Q4H PRN Pain, Mild (1-3) Lipase/Protease/Amylase 1 each 03/08/21 13:40 Lipase 10,500/Protease 25,000/Amylase 43,750 (Units) Dr Coreas FEEDTUBE PRN PRN For Clogged Feeding Tube Ascorbic Acid 1,000 mg 03/12/21 10:00 03/15/21 09:46 Ascorbic Acid 500 Mg Tab PO 1,000 mg BID MARCO ANTONIO Administration Cholecalciferol 5,000 unit 03/12/21 10:00 03/15/21 09:46 Cholecalciferol (Vit D3) 5,000 Unit Tab PO 5,000 unit DAILY MARCO ANTONIO Administration Dexamethasone 8 mg 03/08/21 10:00 03/15/21 09:50 Dexamethasone 4 Mg/Ml Vial IV 03/17/21 10:01 8 mg DAILY MARCO ANTONIO Administration Dextrose 50 ml 03/07/21 22:57 Dextrose 50% In Water (25gm) 50 Ml Syringe IV Q30MIN PRN Hypoglycemia Protocol Famotidine 20 mg 03/13/21 10:00 03/15/21 09:46 Famotidine 20 Mg Tab PO 20 mg BID MARCO ANTONIO Administration Fentanyl 50 mcg 03/07/21 21:20 03/07/21 22:13 Fentanyl 100 Mcg/2 Ml Inj IV 50 mcg Q10MIN PRN Administration ANALGESIA Heparin Sodium (Porcine) 8,000 unit 03/08/21 03:37 03/14/21 11:30 Heparin 10,000 Units/10 Ml Vial 40 unit/kg (8000 unit) 8,000 unit IV Administration Q6H PRN Anti-Xa Assay < 0.1 units/ml Hydrophilic Ointment 1 applic 03/08/21 12:42 Lip Therapy Vaseline TP Q2HR PRN Dry Lips Propofol 1,000 mg in 100 mls @ 3.084 mls/hr 03/07/21 21:00 03/15/21 10:47 Diprivan 10 Mg/Ml IV 35 mcg/kg/min TITR MARCO ANTONIO 21.588 mls/hr Titration Protocol 5 MCG/KG/MIN Fentanyl Citrate 2,000 mcg in 100 mls @ 5.14 mls/hr 03/07/21 22:00 03/15/21 10:45 Fentanyl Drip Premix IV 3 mcg/kg/hr TITR MARCO ANTONIO 15.42 mls/hr Administration Protocol 1 MCG/KG/HR Norepinephrine 4 mg in 250 mls @ 7.5 mls/hr 03/07/21 23:45 03/08/21 08:15 Levophed Drip 4 Mg/Ns 250 Ml IV 0 mcg/min TITR MARCO ANTONIO 0 mls/hr Titration Protocol 2 MCG/MIN Heparin Sodium/Sodium Chloride 25,000 unit in 500 mls @ 30 mls/hr 03/08/21 04:00 03/15/21 07:52 Heparin/ 0.45% Nacl-25,000 Unit/500 Ml IV 2,200 units/hr TITR MARCO ANTONIO 44 mls/hr Titration Protocol 1,500 UNITS/HR Insulin Glargine 20 units 03/15/21 10:00 03/15/21 10:40 Insulin Glargine 100 Units/Ml SUB-Q 20 units DAILY MARCO ANTONIO Administration Insulin Glargine 40 units 03/15/21 22:00 Insulin Glargine 100 Units/Ml SUB-Q QHS MARCO ANTONIO Insulin Human Lispro 0 unit 03/08/21 12:00 03/15/21 12:09 Insulin Lispro 100 Unit/Ml SUB-Q 4 unit Q6HR MARCO ANTONIO Administration Protocol Magnesium Hydroxide 30 ml 03/07/21 22:57 03/13/21 10:13 Magnesium Hydroxide (Mom) Oral Liqd Udc PO 30 ml Q4H PRN Administration Constipation Morphine Sulfate 2 mg 03/07/21 22:57 03/09/21 21:29 Morphine 2 Mg/1 Ml Inj IV 2 mg Q4H PRN Administration Pain, Moderate (4-6) Multi-Ingred Cream/Lotion/Oil/Oint 1 applic 03/08/21 12:42 Mineral Oil/Petrolatum, White Ophth Oint 3.5 Gm OU Q4HR PRN Dry Eye(s) Ondansetron HCl 4 mg 03/07/21 22:57 Ondansetron 4 Mg/2 Ml Inj IV Q8H PRN Nausea And Vomiting Quetiapine Fumarate 150 mg 03/15/21 15:00 03/15/21 15:10 Quetiapine 100 Mg Tab PO 150 mg BID MARCO ANTONIO Administration Senna/Docusate Sodium 1 tab 03/08/21 22:00 03/15/21 09:46 Sennosides/Docusate Sodium 8.6/50 Mg Tab FEEDTUBE 1 tab BID MARCO ANTONIO Administration Simple Syrup 15 ml 03/08/21 13:40 Simple Syrup 15 Ml FEEDTUBE PRN PRN Hypoglycemia Simple Syrup 30 ml 03/08/21 13:40 Simple Syrup 15 Ml FEEDTUBE PRN PRN Hypoglycemia Sodium Bicarbonate 325 mg 03/08/21 13:40 Sodium Bicarbonate 325 Mg Tab FEEDTUBE PRN PRN For Clogged Feeding Tube Sodium Chloride 10 ml 03/08/21 10:00 03/15/21 10:41 Sodium Chloride 0.9% 10 Ml Flush Syringe IV 10 ml BID MARCO ANTONIO Administration Sodium Chloride 10 ml 03/07/21 22:57 Sodium Chloride 0.9% 10 Ml Flush Syringe IV PRN PRN LINE FLUSH Tamsulosin HCl 0.4 mg 03/10/21 14:00 03/15/21 09:50 Tamsulosin 0.4 Mg Cap PO 0.4 mg QDAY MARCO ANTONIO Administration Zinc Sulfate 220 mg 03/12/21 10:00 03/15/21 09:50 Zinc Sulfate 220 Mg Cap PO 220 mg QDAY MARCO ANTONIO Administration Nutrition/Malnutrition Assess - Dietary Evaluation Nutrition/Malnutrition Findings: Nutrition Notes Start: 03/08/21 12:27 Freq: Status: Active Protocol: Document 03/15/21 12:24 (Rec: 03/15/21 12:28 [id number]) Nutrition Notes Initial or Follow up Reassessment Current Diagnosis Sepsis,Respiratory Failure Other Pertinent Diagnosis Pneu, r/o COVID-19, pulmonary embolism Current Diet Vital AF at 50 ml/hr Labs/Tests Na 136 Bg 227 Pertinent Medications Propofol at 21.588 ml/hr ( provides 570 kcal) Decadron Height 5 ft Weight 102.8 kg [place] Body Weight (kg) 45.45 BMI 44.2 Weight Status Morbidly Obese Subjective/Other Information FU for TF tolerance. Pt now with BM. MD will increase insulin for BG. 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 Yes Is Patient Ambulatory and/or Out of Bed No REE-([facility]-confined to bed) 1904.676 Kcal/Kg value to use for calculation 14 Approximate Energy Requirements Using 1439 kcal/Kg Calculation Used for Recommendations Kcal/kg Additional Notes Pro needs up to 2.5g/kg IBW: 114g/day Fluid needs 1ml/kcal Nutrition Intervention Change Diet Order: Contiue Nutrition Support: Vital AF 1.2 at 50ml/hr with 80ml water flush q4h. Kcal 1,440 Protein (gm) 90 Carbohydrates (gm) 133 Fat (gm) 65 Fluid (mL) 937 Fiber (gm) 6 Goal #1 TF tolerance Goal #2 TF (at goal rate) to meet at least 75% energy and pro needs Anticipated Discharge Needs: Unable to determine at this time Follow-Up By: 03/17/21 Additional Comments FU for stable TF <GIACOMO ROSE - Last Filed: 03/16/21 16:04> Assessment and Plan Assessment and plan: Agree with assessment and plan as outlined by nurse practitioner. I have personally examined the patient, reviewed the chart and labs, and made appropriate medical changes to the plan above. Patient was slightly hypotensive, will give 500 cc bolus. Careful with sedation which causes the patient's blood pressure to fall. EKG to assess QTC. Hospitalist Physical - Constitutional Vitals: Temp Pulse Resp BP Pulse Ox 99.3 F 66 17 97/43 98 03/16/21 12:00 03/16/21 15:20 03/16/21 15:20 03/16/21 15:20 03/16/21 15:20 HEART Score - HEART Score Troponin: Troponin T 0.085 ng/mL (0.00-0.029) H 03/07/21 20:31 Results - Labs CBC & Chem 7: 03/16/21 07:43 03/16/21 07:43 Labs: Laboratory Last Values WBC 26.2 K/mm3 (4.5-11.0) H 03/16/21 07:43 RBC 3.72 M/mm3 (3.65-5.03) 03/16/21 07:43 Hgb 10.5 gm/dl (10.1-14.3) 03/16/21 07:43 Hct 31.8 % (30.3-42.9) 03/16/21 07:43 MCV 86 fl (79-97) 03/16/21 07:43 MCH 28 pg (28-32) 03/16/21 07:43 MCHC 33 % (30-34) 03/16/21 07:43 RDW 15.0 % (13.2-15.2) 03/16/21 07:43 Plt Count 319 K/mm3 (140-440) 03/16/21 07:43 Lymph % (Auto) At Risk Paraprofessional 03/07/21 21:04 [place] % (Auto) At Risk Paraprofessional 03/07/21 21:04 Eos % (Auto) At Risk Paraprofessional 03/07/21 21:04 Baso % (Auto) At Risk Paraprofessional 03/07/21 21:04 Lymph # (Auto) At Risk Paraprofessional 03/07/21 21:04 [place] # (Auto) At Risk Paraprofessional 03/07/21 21:04 Eos # (Auto) At Risk Paraprofessional 03/07/21 21:04 Baso # (Auto) At Risk Paraprofessional 03/07/21 21:04 Add Manual Diff Complete 03/10/21 01:12 Total Counted 100 03/10/21 01:12 Seg Neutrophils % At Risk Paraprofessional 03/10/21 01:12 Seg Neuts % (Manual) 89.0 % (40.0-70.0) H 03/10/21 01:12 Band Neutrophils % 11.0 % 03/09/21 12:10 Lymphocytes % (Manual) 6.0 % (13.4-35.0) L 03/10/21 01:12 Monocytes % (Manual) 5.0 % (0.0-7.3) 03/10/21 01:12 Metamyelocytes % 1.0 % 03/09/21 12:10 Myelocytes % 1.0 % 03/09/21 12:10 Nucleated RBC % Not Reportable 03/10/21 01:12 Seg Neutrophils # At Risk Paraprofessional 03/07/21 21:04 Seg Neutrophils # Man 20.1 K/mm3 (1.8-7.7) H 03/10/21 01:12 Band Neutrophils # 0.0 K/mm3 03/10/21 01:12 Lymphocytes # (Manual) 1.4 K/mm3 (1.2-5.4) 03/10/21 01:12 Abs React Lymphs (Man) 0.0 K/mm3 03/10/21 01:12 Monocytes # (Manual) 1.1 K/mm3 (0.0-0.8) H 03/10/21 01:12 Eosinophils # (Manual) 0.0 K/mm3 (0.0-0.4) 03/10/21 01:12 Basophils # (Manual) 0.0 K/mm3 (0.0-0.1) 03/10/21 01:12 Metamyelocytes # 0.0 K/mm3 03/10/21 01:12 Myelocytes # 0.0 K/mm3 03/10/21 01:12 Promyelocytes # 0.0 K/mm3 03/10/21 01:12 Blast Cells # 0.0 K/mm3 03/10/21 01:12 WBC Morphology Not Reportable 03/10/21 01:12 Hypersegmented Neuts Not Reportable 03/10/21 01:12 Hyposegmented Neuts Not Reportable 03/10/21 01:12 Hypogranular Neuts Not Reportable 03/10/21 01:12 Smudge Cells Not Reportable 03/10/21 01:12 Toxic Granulation Not Reportable 03/10/21 01:12 Toxic Vacuolation Not Reportable 03/10/21 01:12 Dohle Bodies Not Reportable 03/10/21 01:12 Pelger-Huet Anomaly Not Reportable 03/10/21 01:12 Jarrett Rods Not Reportable 03/10/21 01:12 Platelet Estimate Not Reportable 03/10/21 01:12 Clumped Platelets Not Reportable 03/10/21 01:12 Plt Clumps, EDTA Not Reportable 03/10/21 01:12 Large Platelets Not Reportable 03/10/21 01:12 Giant Platelets Not Reportable 03/10/21 01:12 Platelet Satelliting Not Reportable 03/10/21 01:12 Plt Morphology Comment Not Reportable 03/10/21 01:12 RBC Morphology Normal 03/10/21 01:12 Dimorphic RBCs Not Reportable 03/10/21 01:12 Polychromasia Not Reportable 03/10/21 01:12 Hypochromasia Not Reportable 03/10/21 01:12 Poikilocytosis Not Reportable 03/10/21 01:12 Anisocytosis Not Reportable 03/10/21 01:12 Microcytosis Not Reportable 03/10/21 01:12 Macrocytosis Not Reportable 03/10/21 01:12 Spherocytes Not Reportable 03/10/21 01:12 Pappenheimer Bodies Not Reportable 03/10/21 01:12 Sickle Cells Not Reportable 03/10/21 01:12 Target Cells Not Reportable 03/10/21 01:12 Tear Drop Cells Not Reportable 03/10/21 01:12 Ovalocytes Not Reportable 03/10/21 01:12 Helmet Cells Not Reportable 03/10/21 01:12 [place] Bodies Not Reportable 03/10/21 01:12 [place] Rings Not Reportable 03/10/21 01:12 Sibley Cells Not Reportable 03/10/21 01:12 Bite Cells Not Reportable 03/10/21 01:12 Crenated Cell Not Reportable 03/10/21 01:12 Elliptocytes Not Reportable 03/10/21 01:12 Acanthocytes (Spur) Not Reportable 03/10/21 01:12 Rouleaux Not Reportable 03/10/21 01:12 Hemoglobin C Crystals Not Reportable 03/10/21 01:12 Schistocytes Not Reportable 03/10/21 01:12 Malaria parasites Not Reportable 03/10/21 01:12 Joss Bodies Not Reportable 03/10/21 01:12 Hem Pathologist Commnt No 03/10/21 01:12 PT 18.5 Sec. (12.2-14.9) H 03/08/21 07:55 INR 1.49 (0.87-1.13) H 03/08/21 07:55 APTT 113.5 Sec. (24.2-36.6) H* 03/08/21 07:55 D-Dimer 4124.04 ng/mlDDU (0-234) H 03/16/21 07:43 Heparin Anti-Xa Level 1.69 U.I./ml (0.3-0.7) H 03/16/21 07:43 Heparin Anti-Xa, Unfract Negative (Negative) 03/08/21 13:00 ABG pH 7.515 (7.320-7.450) H 03/15/21 03:10 POC ABG pCO2 35.4 mmHg (32.0-48.0) 03/15/21 03:10 ABG pCO2 39.5 mm Hg 03/07/21 Unknown POC ABG pO2 97.4 mmHg (83-108) 03/15/21 03:10 ABG pO2 62.6 mm Hg (80.0-90.0) L 03/07/21 Unknown POC ABG HCO3 27.9 03/15/21 03:10 ABG HCO3 20.7 mmol/L (20.0-26.0) 03/07/21 Unknown ABG O2 Saturation 97.7 (0-100) 03/15/21 03:10 ABG O2 Content 15.1 (0.0-44) 03/07/21 Unknown POC ABG Base Excess 4.9 03/15/21 03:10 ABG Base Excess -4.7 mmol/L (-2.0-3.0) L 03/07/21 Unknown ABG Hemoglobin 11.0 (12.0-17.5) L 03/15/21 03:10 ABG Oxyhemoglobin 96.9 (94-98) 03/15/21 03:10 ABG Carboxyhemoglobin 1.4 % (0.0-5.0) 03/07/21 Unknown ABG Methemoglobin 0.3 (0.0-1.5) 03/15/21 03:10 ABG Sodium 131.4 mmol/L (136.0-145.0) L 03/15/21 03:10 ABG Potassium 3.5 mmol/L (3.40-4.50) 03/15/21 03:10 ABG Chloride 95.0 mmol/L (98-107) L 03/15/21 03:10 ABG Glucose 239 mg/dL (65-95) H 03/15/21 03:10 Oxyhemoglobin 87.3 % (95.0-99.0) L 03/07/21 Unknown Carboxyhemoglobin 0.5 (0.5-1.5) 03/15/21 03:10 FiO2 100 % 03/07/21 Unknown FiO2 % 35.0 03/15/21 03:10 Sodium 139 mmol/L (137-145) 03/16/21 07:43 Potassium 4.3 mmol/L (3.6-5.0) 03/16/21 07:43 Chloride 100.0 mmol/L (98-107) 03/16/21 07:43 Carbon Dioxide 32 mmol/L (22-30) H 03/16/21 07:43 Anion Gap 11 mmol/L 03/16/21 07:43 BUN 17 mg/dL (7-17) 03/16/21 07:43 Creatinine 0.4 mg/dL (0.6-1.2) L 03/16/21 07:43 Estimated GFR > 60 ml/min 03/16/21 07:43 BUN/Creatinine Ratio 43 % 03/16/21 07:43 Glucose 230 mg/dL (65-100) H 03/16/21 07:43 POC Glucose 239 mg/dL (70-105) H 03/16/21 11:00 Lactic Acid 1.90 mmol/L (0.7-2.0) 03/10/21 01:12 Calcium 8.8 mg/dL (8.4-10.2) 03/16/21 07:43 Ferritin 151.5 ng/mL (10.0-200.0) 03/16/21 07:43 Total Bilirubin 0.30 mg/dL (0.1-1.2) 03/11/21 04:40 AST 19 units/L (5-40) 03/11/21 04:40 ALT 12 units/L (7-56) 03/11/21 04:40 Alkaline Phosphatase 107 units/L (35-129) 03/11/21 04:40 Lactate Dehydrogenase 662 units/L (91-180) H 03/16/21 07:43 Troponin T 0.085 ng/mL (0.00-0.029) H 03/07/21 20:31 C-Reactive Protein 0.60 mg/dL (0.00-1.30) 03/16/21 07:43 Total Protein 6.1 g/dL (6.3-8.2) L 03/11/21 04:40 Albumin 3.2 g/dL (3.9-5) L 03/11/21 04:40 Albumin/Globulin Ratio 1.1 % 03/11/21 04:40 Triglycerides 173 mg/dL (2-149) H 03/16/21 07:43 Cholesterol 141 mg/dL (50-199) 03/07/21 20:31 LDL Cholesterol Direct 72 mg/dL (50-130) 03/07/21 20:31 HDL Cholesterol 34 mg/dL (40-59) L 03/07/21 20:31 Cholesterol/HDL Ratio 4.14 % 03/07/21 20:31 Serotonin Release Assay See scanned result 03/08/21 13:00 Procalcitonin 0.20 ng/mL (<0.15) 03/13/21 08:08 HCG, Qual Negative (Negative) 03/07/21 22:48 Arterial Blood Glucose 239 mg/dL (65-95) H 03/15/21 03:10 Arterial Blood Ionized Calcium 4.5 mg/dL (4.6-5.3) L 03/15/21 03:10 Urine Color Yellow (Yellow) 03/08/21 05:51 Urine Turbidity Clear (Clear) 03/08/21 05:51 Urine pH 6.0 (5.0-7.0) 03/08/21 05:51 Ur Specific [place] > 1.050 (1.003-1.030) H 03/08/21 05:51 Urine Protein 100 mg/dl mg/dL (Negative) 03/08/21 05:51 Urine Glucose (UA) Neg mg/dL (Negative) 03/08/21 05:51 Urine Ketones Neg mg/dL (Negative) 03/08/21 05:51 Urine Blood Neg (Negative) 03/08/21 05:51 Urine Nitrite Neg (Negative) 03/08/21 05:51 Urine Bilirubin Neg (Negative) 03/08/21 05:51 Urine Urobilinogen 4.0 mg/dL (<2.0) 03/08/21 05:51 Ur Leukocyte Esterase Neg (Negative) 03/08/21 05:51 Urine WBC (Auto) 5.0 /HPF (0.0-6.0) 03/08/21 05:51 Urine RBC (Auto) 5.0 /HPF (0.0-6.0) 03/08/21 05:51 U Epithel Cells (Auto) < 1.0 /HPF (0-13.0) 03/08/21 05:51 Urine Bacteria (Auto) 1+ /HPF (Negative) 03/08/21 05:51 Urine Mucus Few /HPF 03/08/21 05:51 Heparin-induced Plt Ab Negative (Negative) 03/08/21 13:00 UF Heparin High Dose 0 % Release 03/08/21 13:00 JESSY UFH Low Dose 0.1 0 % Release 03/08/21 13:00 JESSY UFH Low Dose 0.5 0 % Release 03/08/21 13:00 Coronavirus (PCR) Positive (Negative) A 03/07/21 Unknown Maya/IV: Voiding Method Indwelling Catheter Active Medications - Current Medications Current Medications: Generic Name Dose Route Start Last Admin Trade Name Freq PRN Reason Stop Dose Admin Acetaminophen 650 mg 03/10/21 00:30 Acetaminophen 650 Mg Rect Supp KS Q4H PRN Pain, Mild (1-3) Lipase/Protease/Amylase 1 each 03/08/21 13:40 Lipase 10,500/Protease 25,000/Amylase 43,750 (Units) Dr Coreas FEEDTUBE PRN PRN For Clogged Feeding Tube Ascorbic Acid 1,000 mg 03/12/21 10:00 03/16/21 09:11 Ascorbic Acid 500 Mg Tab PO 1,000 mg BID MARCO ANTONIO Administration Cholecalciferol 5,000 unit 03/12/21 10:00 03/16/21 09:14 Cholecalciferol (Vit D3) 5,000 Unit Tab PO 5,000 unit DAILY MARCO ANTONIO Administration Dexamethasone 8 mg 03/08/21 10:00 03/16/21 09:10 Dexamethasone 4 Mg/Ml Vial IV 03/17/21 10:01 8 mg DAILY MARCO ANTONIO Administration Dextrose 50 ml 03/07/21 22:57 Dextrose 50% In Water (25gm) 50 Ml Syringe IV Q30MIN PRN Hypoglycemia Protocol Famotidine 20 mg 03/13/21 10:00 03/16/21 09:10 Famotidine 20 Mg Tab PO 20 mg BID MARCO ANTONIO Administration Fentanyl 50 mcg 03/07/21 21:20 03/15/21 15:18 Fentanyl 100 Mcg/2 Ml Inj IV 50 mcg Q10MIN PRN Administration ANALGESIA Heparin Sodium (Porcine) 5,000 unit 03/16/21 12:00 Heparin 10,000 Units/10 Ml Vial IV Q6H PRN Anti-Xa Assay < 0.1 units/ml Hydrophilic Ointment 1 applic 03/08/21 12:42 Lip Therapy Vaseline TP Q2HR PRN Dry Lips Propofol 1,000 mg in 100 mls @ 3.084 mls/hr 03/07/21 21:00 03/16/21 15:09 Diprivan 10 Mg/Ml IV 25 mcg/kg/min TITR MARCO ANTONIO 15.42 mls/hr Administration Protocol 5 MCG/KG/MIN Fentanyl Citrate 2,000 mcg in 100 mls @ 5.14 mls/hr 03/07/21 22:00 03/16/21 14:23 Fentanyl Drip Premix IV 2 mcg/kg/hr TITR MARCO ANTONIO 10.28 mls/hr Administration Protocol 1 MCG/KG/HR Norepinephrine 4 mg in 250 mls @ 7.5 mls/hr 03/07/21 23:45 03/08/21 08:15 Levophed Drip 4 Mg/Ns 250 Ml IV 0 mcg/min TITR MARCO ANTONIO 0 mls/hr Titration Protocol 2 MCG/MIN Heparin Sodium/Sodium Chloride 25,000 unit in 500 mls @ 30 mls/hr 03/08/21 04:00 03/16/21 11:00 Heparin/ 0.45% Nacl-25,000 Unit/500 Ml IV 2,000 units/hr TITR MARCO ANTONIO 40 mls/hr Titration Protocol 1,500 UNITS/HR Insulin Glargine 40 units 03/15/21 22:00 03/15/21 22:21 Insulin Glargine 100 Units/Ml SUB-Q 40 units QHS MARCO ANTONIO Administration Insulin Glargine 25 units 03/16/21 10:00 03/16/21 09:10 Insulin Glargine 100 Units/Ml SUB-Q 25 units DAILY MARCO ANTONIO Administration Insulin Human Lispro 0 unit 03/08/21 12:00 03/16/21 12:13 Insulin Lispro 100 Unit/Ml SUB-Q 4 unit Q6HR MARCO ANTONIO Administration Protocol Magnesium Hydroxide 30 ml 03/07/21 22:57 03/13/21 10:13 Magnesium Hydroxide (Mom) Oral Liqd Udc PO 30 ml Q4H PRN Administration Constipation Morphine Sulfate 2 mg 03/07/21 22:57 03/09/21 21:29 Morphine 2 Mg/1 Ml Inj IV 2 mg Q4H PRN Administration Pain, Moderate (4-6) Multi-Ingred Cream/Lotion/Oil/Oint 1 applic 03/08/21 12:42 Mineral Oil/Petrolatum, White Ophth Oint 3.5 Gm OU Q4HR PRN Dry Eye(s) Ondansetron HCl 4 mg 03/07/21 22:57 Ondansetron 4 Mg/2 Ml Inj IV Q8H PRN Nausea And Vomiting Quetiapine Fumarate 250 mg 03/15/21 22:00 03/16/21 09:11 Quetiapine 100 Mg Tab FEEDTUBE 250 mg BID MARCO ANTONIO Administration Senna/Docusate Sodium 1 tab 03/08/21 22:00 03/16/21 09:10 Sennosides/Docusate Sodium 8.6/50 Mg Tab FEEDTUBE 1 tab BID MARCO ANTONIO Administration Simple Syrup 15 ml 03/08/21 13:40 Simple Syrup 15 Ml FEEDTUBE PRN PRN Hypoglycemia Simple Syrup 30 ml 03/08/21 13:40 Simple Syrup 15 Ml FEEDTUBE PRN PRN Hypoglycemia Sodium Bicarbonate 325 mg 03/08/21 13:40 Sodium Bicarbonate 325 Mg Tab FEEDTUBE PRN PRN For Clogged Feeding Tube Sodium Chloride 10 ml 03/08/21 10:00 03/16/21 09:10 Sodium Chloride 0.9% 10 Ml Flush Syringe IV 10 ml BID MARCO ANTONIO Administration Sodium Chloride 10 ml 03/07/21 22:57 Sodium Chloride 0.9% 10 Ml Flush Syringe IV PRN PRN LINE FLUSH Tamsulosin HCl 0.4 mg 03/10/21 14:00 03/16/21 09:11 Tamsulosin 0.4 Mg Cap PO 0.4 mg QDAY MARCO ANTONIO Administration Zinc Sulfate 220 mg 03/12/21 10:00 03/16/21 09:11 Zinc Sulfate 220 Mg Cap PO 220 mg QDAY MARCO ANTONIO Administration Nutrition/Malnutrition Assess - Dietary Evaluation Nutrition/Malnutrition Findings: Nutrition Notes Start: 03/08/21 12:27 Freq: Status: Active Protocol: Document 03/15/21 12:24 (Rec: 03/15/21 12:28 [id number]) Nutrition Notes Initial or Follow up Reassessment Current Diagnosis Sepsis,Respiratory Failure Other Pertinent Diagnosis Pneu, r/o COVID-19, pulmonary embolism Current Diet Vital AF at 50 ml/hr Labs/Tests Na 136 Bg 227 Pertinent Medications Propofol at 21.588 ml/hr ( provides 570 kcal) Decadron Height 5 ft Weight 102.8 kg [place] Body Weight (kg) 45.45 BMI 44.2 Weight Status Morbidly Obese Subjective/Other Information FU for TF tolerance. Pt now with BM. MD will increase insulin for BG. 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 Yes Is Patient Ambulatory and/or Out of Bed No REE-([facility]-confined to bed) 1904.676 Kcal/Kg value to use for calculation 14 Approximate Energy Requirements Using 1439 kcal/Kg Calculation Used for Recommendations Kcal/kg Additional Notes Pro needs up to 2.5g/kg IBW: 114g/day Fluid needs 1ml/kcal Nutrition Intervention Change Diet Order: Contiue Nutrition Support: Vital AF 1.2 at 50ml/hr with 80ml water flush q4h. Kcal 1,440 Protein (gm) 90 Carbohydrates (gm) 133 Fat (gm) 65 Fluid (mL) 937 Fiber (gm) 6 Goal #1 TF tolerance Goal #2 TF (at goal rate) to meet at least 75% energy and pro needs Anticipated Discharge Needs: Unable to determine at this time Follow-Up By: 03/17/21 Additional Comments FU for stable TF
[2021-03-15] MEDS ORDERED: SODIUM CHLORIDE 0.9% 1000 ML 1,000 ML ONE (18:59)
--- NOTE | 2021-03-15 19:59 | Procedure Note ---
Date of procedure: 03/15/21 Pre-op diagnosis: COVID PNA, acute hypoxic respiratory failure Post-op diagnosis: same Procedure: Right radial otis inserted using sterile technique. Ulnar pulse palpable. Emerson test completed. Area prepped with chlorhexidine and the site was infiltrated with 1ml 1% lidocaine. Arterial line was placed using ultrasound; catheter advanced without difficulty. Line was sutured, biopatch placed and tegaderm dressing applied. Arm board placed. Arterial waveform observed on bedside monitor. Line flushed and zeroed. RN at bedside. Pt tolerated procedure well. (time spent placing line not included in daily critical care time) Anesthesia: local, none Surgeon: GREGOR STRAUSS Public Address Technician: RALPH PARKER Estimated blood loss: minimal Disposition: ICU
[2021-03-15] MEDS: QUEtiapine 100 MG TAB FEEDTUBE SCH (22:20)
[2021-03-15] MEDS: INSULIN GLARGINE 100 UNITS/ML SUB-Q SCH (22:21)
[2021-03-16] MEDS: INSULIN LISPRO 100 UNIT/ML SUB-Q SCH ×4 (00:05→17:54)
[2021-03-16] MEDS: HEPARIN/ 0.45% NACL DRIP 25,000 UNIT/500 ML BAG IV SCH ×2 (03:28→20:28)
[2021-03-16] MEDS: fentaNYL DRIP Premix 2,000 MCG/100 ML BAG IV SCH ×3 (05:13→22:55)
[2021-03-16 08:00] LABS: Hematocrit 31.8 % (30.3-42.9); Hemoglobin 10.5 gm/dl (10.1-14.3); Mean Corpuscular HGB Conc 33 % (30-34); Mean Corpuscular Volume 86 fl (79-97); Platelet Count 319 K/mm3 (140-440); Red Blood Count 3.72 M/mm3 (3.65-5.03)
[2021-03-16 09:05] LABS: Blood Urea Nitrogen 17 mg/dL (7-17); Calcium 8.8 mg/dL (8.4-10.2); Hemolysis Index 0
[2021-03-16 09:08] LABS: BUN/Creatinine Ratio 43
[2021-03-16] MEDS: dexAMETHasone 4 MG/ML VIAL IV SCH (09:10)
[2021-03-16] MEDS: INSULIN GLARGINE 100 UNITS/ML SUB-Q SCH ×2 (09:10→21:34)
[2021-03-16] MEDS: SENNOSIDES/DOCUSATE SODIUM 8.6/50 MG TAB FEEDTUBE SCH ×2 (09:10→21:35)
[2021-03-16] MEDS: FAMOTIDINE 20 MG TAB PO SCH ×2 (09:10→21:35)
[2021-03-16] MEDS: ASCORBIC ACID 500 MG TAB PO SCH ×2 (09:11→21:35)
[2021-03-16] MEDS: ZINC SULFATE 220 MG CAP PO SCH (09:11)
[2021-03-16] MEDS: TAMSULOSIN 0.4 MG CAP PO SCH (09:11)
[2021-03-16] MEDS: QUEtiapine 100 MG TAB FEEDTUBE SCH ×2 (09:11→21:34)
[2021-03-16] MEDS: CHOLECALCIFEROL (VIT D3) 5,000 UNIT TAB PO SCH (09:14)
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
[2021-03-16] MEDS ORDERED: HEPARIN 10,000 UNITS/10 ML VIAL IV PRN (12:00)
--- NOTE | 2021-03-16 13:50 | Progress Note ---
Assessment and Plan Acute hypoxemic respiratory failure on MVS Severe sepsis with shock Bilateral pneumonia COVID-19 infection Obesity Bilateral pulmonary emboli Leukocytosis Thrombocytopenia Elevated serum inflammatory markers to include D-dimer and LDH Metabolic acidosis Lactic acidosis Non-ST elevation myocardial infarction Oropharyngeal dysphagia - increased Seroquel dose to spare IV sedation - Lantus increased to 25 units - get PICC line shortly and discontinue RIJ CVL - follow repeat CXR in am - increased Flomax to 0.8mg dose as Maya re-inserted for retention - continue Daily SAT and SBT assessment as tolerated - continue full anticoagulation re: VTE - continue care as below otherwise; - continue to wean supplemental oxygen for target O2 sat's > 92% acutely\ - VAP bundle addressed - continue lung protective strategies - continue bronchodilators with pulmonary hygiene per RT - wean per pulmonary driven protocols otherwise - complete antiinfective's per ID rec's - continue accuchecks with glycemic control per SSI (While critically ill target blood glucose of 140-180 mg/dL; avoid hypoglycemia) - sedation prn for target RASS 0 to -1 - avoid nephrotoxins, renally dose all medications - continue to avoid benzodiazepine's, reduce the possibility of delirium - prn analgesia per CPOT score - Maintenance of sleep-wake cycle, avoid delirium - continue enteral nutritional support at goal rate as tolerated - G.I. & VTE prophylaxis - PT/OT/ROM exercises - continue mobility protocols for pressure ulcer prophylaxis - Monitor hemodynamics closely - continue other care per attending / other consultants - discharge planning ongoing concurrently COVID SPECIFIC INTERVENTIONS - Remdesivir as per ID/Pulmonary developed protocols (ordered) - continue systemic steroids for severe COVID-19 infection empirically 9Decadron 8 mg IV daily) - follow repeat COVID tests results - zinc and vitamin C supplementation - Monitor inflammatory markers per facility protocol - ferritin, Ddimer, CRP - therapeutic anticoagulation per system Protocol based on d-dimer and clinical considerations (full re: DVT / P.E.) - Continue contact and airborne isolation .... Re-evaluate in am & prn CONDITION: CRITICAL PROGNOSIS: GUARDED CODE STATUS: FULL CODE The high probability of a clinically significant, sudden or life-threatening deterioration of the [respiratory, cardiovascular & neurologic] system(s) required my full and direct attention, intervention and personal management. The aggregate critical care time was [32] minutes without overlap. Time includes spent on; [x] Data Review and interpretation [x] Patient assessment and monitoring of vital signs [x] Documentation [x] Medication orders and management Subjective Date of service: 03/16/21 Principal diagnosis: Ac. hypoxemic resp. failure; Septic Shock; COVID-19 Pne [place]; VTE; NSTEMI Interval history: Patient is seen today for: Acute hypoxemic respiratory failure; Severe sepsis with shock; Bilateral pneumonia; COVID-19 infection; Bilateral pulmonary emboli; Thrombocytopenia; NSTEMI Seen and examined at bedside; 24hour events reviewed; nursing and respiratory care staff consulted; no adverse overnight events reported to me; resting in bed; remains on MVS; sevre agitation holding weaning trials; family denies h/o EtOH or other drug abuse; sugars running high also Objective Vital Signs - 12hr 03/16/21 03/16/21 03/16/21 02:00 02:20 02:40 Temperature Pulse Rate 63 61 63 Respiratory 17 17 16 Rate Blood Pressure 110/41 110/41 104/50 O2 Sat by Pulse 96 96 97 Oximetry 03/16/21 03/16/21 03/16/21 03:00 03:20 03:40 Temperature Pulse Rate 62 75 78 Respiratory 18 20 22 Rate Blood Pressure 114/42 114/42 126/49 O2 Sat by Pulse 96 96 97 Oximetry 03/16/21 03/16/21 03/16/21 03:45 04:00 04:13 Temperature 99.5 F Pulse Rate 74 67 Respiratory 22 Rate Blood Pressure 126/49 110/44 O2 Sat by Pulse 95 96 Oximetry 03/16/21 03/16/21 03/16/21 04:20 04:40 05:00 Temperature Pulse Rate 64 67 74 Respiratory 17 19 17 Rate Blood Pressure 125/45 117/42 110/77 O2 Sat by Pulse 95 95 97 Oximetry 03/16/21 03/16/21 03/16/21 05:20 05:40 06:00 Temperature Pulse Rate 66 71 79 Respiratory 20 16 21 Rate Blood Pressure 110/77 106/46 102/47 O2 Sat by Pulse 96 96 97 Oximetry 03/16/21 03/16/21 03/16/21 06:20 06:40 07:00 Temperature 99.4 F Pulse Rate 71 74 66 Respiratory 20 21 16 Rate Blood Pressure 102/47 98/41 103/36 O2 Sat by Pulse 97 98 96 Oximetry 0603/16/21 03/16/21 07:16 07:20 07:40 Temperature Pulse Rate 77 94 H Respiratory 24 Rate Blood Pressure 133/56 103/36 96/49 O2 Sat by Pulse 93 97 87 Oximetry 03/16/21 03/16/21 03/16/21 08:00 08:20 08:40 Temperature Pulse Rate 95 H 73 89 Respiratory 25 H 20 21 Rate Blood Pressure 121/56 121/56 99/37 O2 Sat by Pulse 93 93 92 Oximetry 03/16/21 03/16/21 03/16/21 09:00 09:20 09:40 Temperature Pulse Rate 75 72 69 Respiratory 18 21 16 Rate Blood Pressure 115/35 115/35 92/39 O2 Sat by Pulse 95 94 95 Oximetry 03/16/21 03/16/21 03/16/21 10:00 10:20 10:40 Temperature Pulse Rate 87 96 H 104 H Respiratory 21 20 30 H Rate Blood Pressure 91/48 92/39 91/48 O2 Sat by Pulse 96 96 96 Oximetry 03/16/21 03/16/21 03/16/21 11:00 11:20 11:23 Temperature Pulse Rate 114 H 104 H 120 H Respiratory 27 H 17 Rate Blood Pressure 113/46 113/46 145/66 O2 Sat by Pulse 95 93 94 Oximetry 03/16/21 03/16/21 03/16/21 11:26 11:40 12:00 Temperature 99.3 F 99.3 F Pulse Rate 90 119 H Respiratory 21 23 Rate Blood Pressure 113/46 125/75 O2 Sat by Pulse 94 95 Oximetry Constitutional: appears uncomfortable, other (middle aged obese female with mildly increased respiratory effort at rest on MVS) Eyes: non-icteric ENT: oropharynx moist, other (ETT 24 cm ZULEMA) Neck: supple, no lymphadenopathy, other (large circumference) Effort: mildly labored Ascultation: Bilateral: rales (bases) Percussion: Bilateral: not dull Cardiovascular: regular rate and rhythm Gastrointestinal: normoactive bowel sounds, soft, non-tender, non-distended (protuberant) Integumentary: normal Extremities: no cyanosis, no edema, pink and warm, pulses normal Neurologic: non-focal exam (grossly), pupils equal and round, CN II-XII normal, motor strength normal and, other (sedated) Psychiatric: other (unable to assess re: sedation) CBC and BMP: 03/16/21 07:43 03/16/21 07:43 ABG, PT/INR, D-dimer: ABG ABG pH 7.515 (7.320-7.450) H 03/15/21 03:10 POC ABG pCO2 35.4 mmHg (32.0-48.0) 03/15/21 03:10 ABG pCO2 39.5 mm Hg 03/07/21 Unknown POC ABG pO2 97.4 mmHg (83-108) 03/15/21 03:10 ABG pO2 62.6 mm Hg (80.0-90.0) L 03/07/21 Unknown POC ABG HCO3 27.9 03/15/21 03:10 ABG O2 Saturation 97.7 (0-100) 03/15/21 03:10 PT/INR, D-dimer PT 18.5 Sec. (12.2-14.9) H 03/08/21 07:55 INR 1.49 (0.87-1.13) H 03/08/21 07:55 D-Dimer 4124.04 ng/mlDDU (0-234) H 03/16/21 07:43 Abnormal lab findings: Abnormal Labs 03/07/21 03/07/21 03/07/21 13:00 20:31 20:31 WBC RBC Hgb Hct RDW Plt Count Seg Neuts % (Manual) Lymphocytes % (Manual) Nucleated RBC % Seg Neutrophils # Man Lymphocytes # (Manual) Monocytes # (Manual) PT INR APTT D-Dimer > 98223 H Heparin Anti-Xa Level ABG pH POC ABG pCO2 POC ABG pO2 ABG pO2 ABG O2 Saturation ABG Base Excess ABG Hemoglobin ABG Oxyhemoglobin ABG Sodium ABG Potassium ABG Chloride ABG Glucose Oxyhemoglobin Carboxyhemoglobin Sodium 133 L Chloride 94.6 L Carbon Dioxide 17 L BUN 22 H Creatinine Glucose 309 H POC Glucose Lactic Acid 5.10 H* Calcium Ferritin Lactate Dehydrogenase Troponin T 0.085 H C-Reactive Protein Total Protein Albumin 3.5 L Triglycerides 213 H HDL Cholesterol 34 L Arterial Blood Glucose Arterial Blood Ionized Calcium Ur Specific [place] Coronavirus (PCR) 03/07/21 03/07/21 03/07/21 20:31 21:04 21:28 WBC 31.6 H RBC Hgb Hct RDW 15.3 H Plt Count Seg Neuts % (Manual) 73.0 H Lymphocytes % (Manual) 11.5 L Nucleated RBC % 7.0 H Seg Neutrophils # Man 23.1 H Lymphocytes # (Manual) Monocytes # (Manual) 1.7 H PT INR APTT D-Dimer > 49202 H Heparin Anti-Xa Level ABG pH POC ABG pCO2 POC ABG pO2 ABG pO2 ABG O2 Saturation ABG Base Excess ABG Hemoglobin ABG Oxyhemoglobin ABG Sodium ABG Potassium ABG Chloride ABG Glucose Oxyhemoglobin Carboxyhemoglobin Sodium Chloride Carbon Dioxide BUN Creatinine Glucose 301 H POC Glucose Lactic Acid Calcium Ferritin Lactate Dehydrogenase 1259 H Troponin T C-Reactive Protein 25.50 H Total Protein Albumin Triglycerides HDL Cholesterol Arterial Blood Glucose Arterial Blood Ionized Calcium Ur Specific [place] Coronavirus (PCR) 03/07/21 03/07/21 03/07/21 21:28 22:48 Unknown WBC RBC Hgb Hct RDW Plt Count Seg Neuts % (Manual) Lymphocytes % (Manual) Nucleated RBC % Seg Neutrophils # Man Lymphocytes # (Manual) Monocytes # (Manual) PT INR APTT D-Dimer Heparin Anti-Xa Level ABG pH POC ABG pCO2 POC ABG pO2 ABG pO2 ABG O2 Saturation ABG Base Excess ABG Hemoglobin ABG Oxyhemoglobin ABG Sodium ABG Potassium ABG Chloride ABG Glucose Oxyhemoglobin Carboxyhemoglobin Sodium Chloride Carbon Dioxide BUN Creatinine Glucose POC Glucose Lactic Acid 6.00 H* 3.40 H* Calcium Ferritin Lactate Dehydrogenase Troponin T C-Reactive Protein Total Protein Albumin Triglycerides HDL Cholesterol Arterial Blood Glucose Arterial Blood Ionized Calcium Ur Specific [place] Coronavirus (PCR) Positive A 03/07/21 03/08/21 03/08/21 Unknown 05:51 06:18 WBC 27.5 H RBC Hgb Hct RDW Plt Count 108 L Seg Neuts % (Manual) 85.0 H Lymphocytes % (Manual) 1.0 L Nucleated RBC % 7.0 H Seg Neutrophils # Man 23.4 H Lymphocytes # (Manual) 0.3 L Monocytes # (Manual) PT INR APTT D-Dimer Heparin Anti-Xa Level ABG pH 7.338 L POC ABG pCO2 POC ABG pO2 ABG pO2 62.6 L ABG O2 Saturation 89.1 L ABG Base Excess -4.7 L ABG Hemoglobin ABG Oxyhemoglobin ABG Sodium ABG Potassium ABG Chloride ABG Glucose Oxyhemoglobin 87.3 L Carboxyhemoglobin Sodium Chloride Carbon Dioxide BUN Creatinine Glucose POC Glucose Lactic Acid Calcium Ferritin Lactate Dehydrogenase Troponin T C-Reactive Protein Total Protein Albumin Triglycerides HDL Cholesterol Arterial Blood Glucose Arterial Blood Ionized Calcium Ur Specific [place] > 1.050 H Coronavirus (PCR) 03/08/21 03/08/21 03/08/21 06:18 06:18 07:29 WBC RBC Hgb Hct RDW Plt Count Seg Neuts % (Manual) Lymphocytes % (Manual) Nucleated RBC % Seg Neutrophils # Man Lymphocytes # (Manual) Monocytes # (Manual) PT 20.3 H INR 1.69 H APTT D-Dimer Heparin Anti-Xa Level ABG pH POC ABG pCO2 POC ABG pO2 ABG pO2 ABG O2 Saturation ABG Base Excess ABG Hemoglobin ABG Oxyhemoglobin ABG Sodium ABG Potassium ABG Chloride ABG Glucose Oxyhemoglobin Carboxyhemoglobin Sodium Chloride Carbon Dioxide BUN 21 H Creatinine Glucose 188 H POC Glucose 192 H Lactic Acid Calcium 6.8 L D Ferritin Lactate Dehydrogenase Troponin T C-Reactive Protein Total Protein Albumin Triglycerides HDL Cholesterol Arterial Blood Glucose Arterial Blood Ionized Calcium Ur Specific [place] Coronavirus (PCR) 03/08/21 03/08/21 03/08/21 07:55 08:06 11:35 WBC RBC Hgb Hct RDW Plt Count Seg Neuts % (Manual) Lymphocytes % (Manual) Nucleated RBC % Seg Neutrophils # Man Lymphocytes # (Manual) Monocytes # (Manual) PT 18.5 H INR 1.49 H APTT 113.5 H* D-Dimer Heparin Anti-Xa Level ABG pH 7.311 L POC ABG pCO2 POC ABG pO2 ABG pO2 ABG O2 Saturation ABG Base Excess ABG Hemoglobin 11.8 L ABG Oxyhemoglobin ABG Sodium ABG Potassium ABG Chloride 111.0 H ABG Glucose 176 H Oxyhemoglobin Carboxyhemoglobin 0.4 L Sodium Chloride Carbon Dioxide BUN Creatinine Glucose POC Glucose 142 H Lactic Acid Calcium Ferritin Lactate Dehydrogenase Troponin T C-Reactive Protein Total Protein Albumin Triglycerides HDL Cholesterol Arterial Blood Glucose 176 H Arterial Blood Ionized Calcium 4.1 L Ur Specific [place] Coronavirus (PCR) 03/08/21 03/08/21 03/08/21 13:00 16:59 21:00 WBC RBC Hgb Hct RDW Plt Count Seg Neuts % (Manual) Lymphocytes % (Manual) Nucleated RBC % Seg Neutrophils # Man Lymphocytes # (Manual) Monocytes # (Manual) PT INR APTT D-Dimer Heparin Anti-Xa Level 0.22 L ABG pH POC ABG pCO2 30.1 L POC ABG pO2 74.9 L ABG pO2 ABG O2 Saturation ABG Base Excess ABG Hemoglobin 10.0 L ABG Oxyhemoglobin 93.8 L ABG Sodium ABG Potassium ABG Chloride 113.0 H ABG Glucose 250 H Oxyhemoglobin Carboxyhemoglobin 0.3 L Sodium Chloride Carbon Dioxide BUN Creatinine Glucose POC Glucose 196 H Lactic Acid Calcium Ferritin Lactate Dehydrogenase Troponin T C-Reactive Protein Total Protein Albumin Triglycerides HDL Cholesterol Arterial Blood Glucose 250 H Arterial Blood Ionized Calcium 4.0 L Ur Specific [place] Coronavirus (PCR) 03/08/21 03/08/21 03/09/21 21:19 21:30 03:14 WBC RBC Hgb Hct RDW Plt Count Seg Neuts % (Manual) Lymphocytes % (Manual) Nucleated RBC % Seg Neutrophils # Man Lymphocytes # (Manual) Monocytes # (Manual) PT INR APTT D-Dimer Heparin Anti-Xa Level 0.16 L ABG pH POC ABG pCO2 31.0 L POC ABG pO2 80.4 L ABG pO2 ABG O2 Saturation ABG Base Excess ABG Hemoglobin 9.4 L ABG Oxyhemoglobin ABG Sodium ABG Potassium ABG Chloride 114.0 H ABG Glucose 249 H Oxyhemoglobin Carboxyhemoglobin 0.3 L Sodium Chloride Carbon Dioxide BUN Creatinine Glucose POC Glucose 250 H Lactic Acid Calcium Ferritin Lactate Dehydrogenase Troponin T C-Reactive Protein Total Protein Albumin Triglycerides HDL Cholesterol Arterial Blood Glucose 249 H Arterial Blood Ionized Calcium 4.1 L Ur Specific [place] Coronavirus (PCR) 03/09/21 03/09/21 03/09/21 05:26 06:31 11:25 WBC RBC Hgb Hct RDW Plt Count Seg Neuts % (Manual) Lymphocytes % (Manual) Nucleated RBC % Seg Neutrophils # Man Lymphocytes # (Manual) Monocytes # (Manual) PT INR APTT D-Dimer Heparin Anti-Xa Level ABG pH POC ABG pCO2 POC ABG pO2 ABG pO2 ABG O2 Saturation ABG Base Excess ABG Hemoglobin ABG Oxyhemoglobin ABG Sodium ABG Potassium ABG Chloride ABG Glucose Oxyhemoglobin Carboxyhemoglobin Sodium Chloride 110.6 H Carbon Dioxide 20 L BUN 22 H Creatinine Glucose 244 H POC Glucose 217 H 235 H Lactic Acid Calcium 6.7 L Ferritin Lactate Dehydrogenase Troponin T C-Reactive Protein Total Protein 5.6 L D Albumin 2.5 L Triglycerides HDL Cholesterol Arterial Blood Glucose Arterial Blood Ionized Calcium Ur Specific [place] Coronavirus (PCR) 03/09/21 03/09/21 03/09/21 12:10 17:29 23:13 WBC 24.1 H RBC 3.29 L Hgb 9.3 L Hct 28.7 L RDW 15.5 H Plt Count Seg Neuts % (Manual) 84.0 H Lymphocytes % (Manual) 1.0 L Nucleated RBC % 3.0 H Seg Neutrophils # Man 20.2 H Lymphocytes # (Manual) 0.2 L Monocytes # (Manual) PT INR APTT D-Dimer Heparin Anti-Xa Level ABG pH POC ABG pCO2 POC ABG pO2 ABG pO2 ABG O2 Saturation ABG Base Excess ABG Hemoglobin ABG Oxyhemoglobin ABG Sodium ABG Potassium ABG Chloride ABG Glucose Oxyhemoglobin Carboxyhemoglobin Sodium Chloride Carbon Dioxide BUN Creatinine Glucose POC Glucose 279 H 284 H Lactic Acid Calcium Ferritin Lactate Dehydrogenase Troponin T C-Reactive Protein Total Protein Albumin Triglycerides HDL Cholesterol Arterial Blood Glucose Arterial Blood Ionized Calcium Ur Specific [place] Coronavirus (PCR) 03/10/21 03/10/21 03/10/21 01:12 03:29 04:32 WBC 22.6 H 21.5 H RBC 3.31 L 3.33 L Hgb 9.3 L 9.4 L Hct 28.9 L 28.9 L RDW 15.3 H Plt Count Seg Neuts % (Manual) 89.0 H Lymphocytes % (Manual) 6.0 L Nucleated RBC % Seg Neutrophils # Man 20.1 H Lymphocytes # (Manual) Monocytes # (Manual) 1.1 H PT INR APTT D-Dimer Heparin Anti-Xa Level ABG pH POC ABG pCO2 26.7 L POC ABG pO2 148.7 H ABG pO2 ABG O2 Saturation ABG Base Excess ABG Hemoglobin 9.5 L ABG Oxyhemoglobin 98.3 H ABG Sodium ABG Potassium 4.7 H ABG Chloride 114.0 H ABG Glucose 263 H Oxyhemoglobin Carboxyhemoglobin 0.3 L Sodium Chloride Carbon Dioxide BUN Creatinine Glucose POC Glucose Lactic Acid Calcium Ferritin Lactate Dehydrogenase Troponin T C-Reactive Protein Total Protein Albumin Triglycerides HDL Cholesterol Arterial Blood Glucose 263 H Arterial Blood Ionized Calcium 4.4 L Ur Specific [place] Coronavirus (PCR) 0603/10/21 03/10/21 04:32 04:32 05:26 WBC RBC Hgb Hct RDW Plt Count Seg Neuts % (Manual) Lymphocytes % (Manual) Nucleated RBC % Seg Neutrophils # Man Lymphocytes # (Manual) Monocytes # (Manual) PT INR APTT D-Dimer Heparin Anti-Xa Level ABG pH POC ABG pCO2 POC ABG pO2 ABG pO2 ABG O2 Saturation ABG Base Excess ABG Hemoglobin ABG Oxyhemoglobin ABG Sodium ABG Potassium ABG Chloride ABG Glucose Oxyhemoglobin Carboxyhemoglobin Sodium Chloride 112.2 H 111.0 H Carbon Dioxide 21 L 21 L BUN 24 H 25 H Creatinine Glucose 262 H 258 H POC Glucose 246 H Lactic Acid Calcium 7.5 L 7.3 L Ferritin Lactate Dehydrogenase Troponin T C-Reactive Protein Total Protein 5.8 L Albumin 2.8 L Triglycerides HDL Cholesterol Arterial Blood Glucose Arterial Blood Ionized Calcium Ur Specific [place] Coronavirus (PCR) 03/10/21 03/10/21 03/10/21 11:50 17:18 21:39 WBC RBC Hgb Hct RDW Plt Count Seg Neuts % (Manual) Lymphocytes % (Manual) Nucleated RBC % Seg Neutrophils # Man Lymphocytes # (Manual) Monocytes # (Manual) PT INR APTT D-Dimer Heparin Anti-Xa Level ABG pH POC ABG pCO2 POC ABG pO2 ABG pO2 ABG O2 Saturation ABG Base Excess ABG Hemoglobin ABG Oxyhemoglobin ABG Sodium ABG Potassium ABG Chloride ABG Glucose Oxyhemoglobin Carboxyhemoglobin Sodium Chloride Carbon Dioxide BUN Creatinine Glucose POC Glucose 234 H 248 H 242 H Lactic Acid Calcium Ferritin Lactate Dehydrogenase Troponin T C-Reactive Protein Total Protein Albumin Triglycerides HDL Cholesterol Arterial Blood Glucose Arterial Blood Ionized Calcium Ur Specific [place] Coronavirus (PCR) 03/10/21 03/11/21 03/11/21 22:39 02:12 04:40 WBC RBC Hgb Hct RDW Plt Count Seg Neuts % (Manual) Lymphocytes % (Manual) Nucleated RBC % Seg Neutrophils # Man Lymphocytes # (Manual) Monocytes # (Manual) PT INR APTT D-Dimer Heparin Anti-Xa Level ABG pH 7.481 H POC ABG pCO2 27.3 L POC ABG pO2 180.2 H ABG pO2 ABG O2 Saturation ABG Base Excess ABG Hemoglobin 11.2 L ABG Oxyhemoglobin 99.1 H ABG Sodium ABG Potassium ABG Chloride 111.0 H ABG Glucose 311 H Oxyhemoglobin Carboxyhemoglobin 0.2 L Sodium Chloride 108.6 H Carbon Dioxide 21 L BUN 23 H Creatinine Glucose 276 H POC Glucose 245 H Lactic Acid Calcium 8.0 L Ferritin Lactate Dehydrogenase Troponin T C-Reactive Protein Total Protein 6.1 L Albumin 3.2 L Triglycerides HDL Cholesterol Arterial Blood Glucose 311 H Arterial Blood Ionized Calcium 4.5 L Ur Specific [place] Coronavirus (PCR) 03/11/21 03/11/21 03/11/21 04:55 12:35 18:15 WBC RBC Hgb Hct RDW Plt Count Seg Neuts % (Manual) Lymphocytes % (Manual) Nucleated RBC % Seg Neutrophils # Man Lymphocytes # (Manual) Monocytes # (Manual) PT INR APTT D-Dimer Heparin Anti-Xa Level ABG pH POC ABG pCO2 POC ABG pO2 ABG pO2 ABG O2 Saturation ABG Base Excess ABG Hemoglobin ABG Oxyhemoglobin ABG Sodium ABG Potassium ABG Chloride ABG Glucose Oxyhemoglobin Carboxyhemoglobin Sodium Chloride Carbon Dioxide BUN Creatinine Glucose POC Glucose 260 H 273 H 283 H Lactic Acid Calcium Ferritin Lactate Dehydrogenase Troponin T C-Reactive Protein Total Protein Albumin Triglycerides HDL Cholesterol Arterial Blood Glucose Arterial Blood Ionized Calcium Ur Specific [place] Coronavirus (PCR) 03/11/21 03/12/21 03/12/21 23:17 04:00 05:39 WBC RBC Hgb Hct RDW Plt Count Seg Neuts % (Manual) Lymphocytes % (Manual) Nucleated RBC % Seg Neutrophils # Man Lymphocytes # (Manual) Monocytes # (Manual) PT INR APTT D-Dimer Heparin Anti-Xa Level ABG pH 7.463 H POC ABG pCO2 30.9 L POC ABG pO2 ABG pO2 ABG O2 Saturation ABG Base Excess ABG Hemoglobin 10.7 L ABG Oxyhemoglobin ABG Sodium ABG Potassium ABG Chloride ABG Glucose 310 H Oxyhemoglobin Carboxyhemoglobin 0.3 L Sodium Chloride Carbon Dioxide BUN Creatinine Glucose POC Glucose 280 H 278 H Lactic Acid Calcium Ferritin Lactate Dehydrogenase Troponin T C-Reactive Protein Total Protein Albumin Triglycerides HDL Cholesterol Arterial Blood Glucose 310 H Arterial Blood Ionized Calcium Ur Specific [place] Coronavirus (PCR) 03/12/21 03/12/21 03/12/21 05:52 05:52 13:02 WBC 41.7 H* RBC Hgb Hct RDW Plt Count Seg Neuts % (Manual) Lymphocytes % (Manual) Nucleated RBC % Seg Neutrophils # Man Lymphocytes # (Manual) Monocytes # (Manual) PT INR APTT D-Dimer Heparin Anti-Xa Level ABG pH POC ABG pCO2 POC ABG pO2 ABG pO2 ABG O2 Saturation ABG Base Excess ABG Hemoglobin ABG Oxyhemoglobin ABG Sodium ABG Potassium ABG Chloride ABG Glucose Oxyhemoglobin Carboxyhemoglobin Sodium Chloride 107.5 H Carbon Dioxide BUN Creatinine 0.5 L Glucose 297 H POC Glucose 345 H Lactic Acid Calcium 8.1 L Ferritin Lactate Dehydrogenase Troponin T C-Reactive Protein Total Protein Albumin Triglycerides HDL Cholesterol Arterial Blood Glucose Arterial Blood Ionized Calcium Ur Specific [place] Coronavirus (PCR) 03/12/21 03/12/21 03/13/21 17:11 23:32 04:00 WBC RBC Hgb Hct RDW Plt Count Seg Neuts % (Manual) Lymphocytes % (Manual) Nucleated RBC % Seg Neutrophils # Man Lymphocytes # (Manual) Monocytes # (Manual) PT INR APTT D-Dimer Heparin Anti-Xa Level 0.29 L ABG pH POC ABG pCO2 POC ABG pO2 ABG pO2 ABG O2 Saturation ABG Base Excess ABG Hemoglobin ABG Oxyhemoglobin ABG Sodium ABG Potassium ABG Chloride ABG Glucose Oxyhemoglobin Carboxyhemoglobin Sodium Chloride Carbon Dioxide BUN Creatinine Glucose POC Glucose 383 H 282 H Lactic Acid Calcium Ferritin Lactate Dehydrogenase Troponin T C-Reactive Protein Total Protein Albumin Triglycerides HDL Cholesterol Arterial Blood Glucose Arterial Blood Ionized Calcium Ur Specific [place] Coronavirus (PCR) 03/13/21 03/13/21 03/13/21 04:00 04:00 05:28 WBC 32.9 H RBC Hgb Hct RDW Plt Count Seg Neuts % (Manual) Lymphocytes % (Manual) Nucleated RBC % Seg Neutrophils # Man Lymphocytes # (Manual) Monocytes # (Manual) PT INR APTT D-Dimer Heparin Anti-Xa Level ABG pH POC ABG pCO2 POC ABG pO2 ABG pO2 ABG O2 Saturation ABG Base Excess ABG Hemoglobin ABG Oxyhemoglobin ABG Sodium ABG Potassium ABG Chloride ABG Glucose Oxyhemoglobin Carboxyhemoglobin Sodium Chloride Carbon Dioxide BUN 18 H Creatinine 0.4 L Glucose 316 H POC Glucose 318 H Lactic Acid Calcium Ferritin Lactate Dehydrogenase Troponin T C-Reactive Protein Total Protein Albumin Triglycerides HDL Cholesterol Arterial Blood Glucose Arterial Blood Ionized Calcium Ur Specific [place] Coronavirus (PCR) 03/13/21 03/13/21 03/13/21 05:58 12:41 13:41 WBC RBC Hgb Hct RDW Plt Count Seg Neuts % (Manual) Lymphocytes % (Manual) Nucleated RBC % Seg Neutrophils # Man Lymphocytes # (Manual) Monocytes # (Manual) PT INR APTT D-Dimer Heparin Anti-Xa Level ABG pH 7.465 H POC ABG pCO2 POC ABG pO2 79.5 L ABG pO2 ABG O2 Saturation ABG Base Excess ABG Hemoglobin 10.6 L ABG Oxyhemoglobin ABG Sodium ABG Potassium ABG Chloride ABG Glucose 319 H Oxyhemoglobin Carboxyhemoglobin 0.4 L Sodium Chloride Carbon Dioxide BUN Creatinine Glucose POC Glucose 304 H 342 H Lactic Acid Calcium Ferritin Lactate Dehydrogenase Troponin T C-Reactive Protein Total Protein Albumin Triglycerides HDL Cholesterol Arterial Blood Glucose 319 H Arterial Blood Ionized Calcium 4.5 L Ur Specific [place] Coronavirus (PCR) 03/13/21 03/13/21 03/14/21 17:23 23:14 04:52 WBC RBC Hgb Hct RDW Plt Count Seg Neuts % (Manual) Lymphocytes % (Manual) Nucleated RBC % Seg Neutrophils # Man Lymphocytes # (Manual) Monocytes # (Manual) PT INR APTT D-Dimer Heparin Anti-Xa Level ABG pH POC ABG pCO2 POC ABG pO2 ABG pO2 ABG O2 Saturation ABG Base Excess ABG Hemoglobin ABG Oxyhemoglobin ABG Sodium ABG Potassium ABG Chloride ABG Glucose Oxyhemoglobin Carboxyhemoglobin Sodium Chloride Carbon Dioxide BUN Creatinine Glucose POC Glucose 336 H 257 H 266 H Lactic Acid Calcium Ferritin Lactate Dehydrogenase Troponin T C-Reactive Protein Total Protein Albumin Triglycerides HDL Cholesterol Arterial Blood Glucose Arterial Blood Ionized Calcium Ur Specific [place] Coronavirus (PCR) 03/14/21 03/14/21 03/14/21 08:35 08:35 08:35 WBC 21.9 H RBC Hgb Hct RDW 15.4 H Plt Count Seg Neuts % (Manual) Lymphocytes % (Manual) Nucleated RBC % Seg Neutrophils # Man Lymphocytes # (Manual) Monocytes # (Manual) PT INR APTT D-Dimer 4053.87 H Heparin Anti-Xa Level < 0.10 L ABG pH POC ABG pCO2 POC ABG pO2 ABG pO2 ABG O2 Saturation ABG Base Excess ABG Hemoglobin ABG Oxyhemoglobin ABG Sodium ABG Potassium ABG Chloride ABG Glucose Oxyhemoglobin Carboxyhemoglobin Sodium 131 L D Chloride 96.3 L Carbon Dioxide BUN 19 H Creatinine 0.3 L Glucose 265 H POC Glucose Lactic Acid Calcium Ferritin Lactate Dehydrogenase 768 H Troponin T C-Reactive Protein Total Protein Albumin Triglycerides HDL Cholesterol Arterial Blood Glucose Arterial Blood Ionized Calcium Ur Specific [place] Coronavirus (PCR) 03/14/21 03/14/21 03/14/21 08:35 11:49 16:50 WBC RBC Hgb Hct RDW Plt Count Seg Neuts % (Manual) Lymphocytes % (Manual) Nucleated RBC % Seg Neutrophils # Man Lymphocytes # (Manual) Monocytes # (Manual) PT INR APTT D-Dimer Heparin Anti-Xa Level ABG pH 7.518 H POC ABG pCO2 POC ABG pO2 ABG pO2 ABG O2 Saturation ABG Base Excess ABG Hemoglobin 11.0 L ABG Oxyhemoglobin ABG Sodium 130.5 L ABG Potassium ABG Chloride 95.0 L ABG Glucose 325 H Oxyhemoglobin Carboxyhemoglobin Sodium Chloride Carbon Dioxide BUN Creatinine Glucose POC Glucose 256 H Lactic Acid Calcium Ferritin 209.5 H Lactate Dehydrogenase Troponin T C-Reactive Protein Total Protein Albumin Triglycerides HDL Cholesterol Arterial Blood Glucose 325 H Arterial Blood Ionized Calcium 4.5 L Ur Specific [place] Coronavirus (PCR) 03/14/21 03/14/21 03/14/21 18:18 19:39 22:05 WBC RBC Hgb Hct RDW Plt Count Seg Neuts % (Manual) Lymphocytes % (Manual) Nucleated RBC % Seg Neutrophils # Man Lymphocytes # (Manual) Monocytes # (Manual) PT INR APTT D-Dimer Heparin Anti-Xa Level 0.19 L ABG pH POC ABG pCO2 POC ABG pO2 ABG pO2 ABG O2 Saturation ABG Base Excess ABG Hemoglobin ABG Oxyhemoglobin ABG Sodium ABG Potassium ABG Chloride ABG Glucose Oxyhemoglobin Carboxyhemoglobin Sodium Chloride Carbon Dioxide BUN Creatinine Glucose POC Glucose 299 H 276 H Lactic Acid Calcium Ferritin Lactate Dehydrogenase Troponin T C-Reactive Protein Total Protein Albumin Triglycerides HDL Cholesterol Arterial Blood Glucose Arterial Blood Ionized Calcium Ur Specific [place] Coronavirus (PCR) 03/14/21 03/15/21 03/15/21 23:47 03:10 05:13 WBC RBC Hgb Hct RDW Plt Count Seg Neuts % (Manual) Lymphocytes % (Manual) Nucleated RBC % Seg Neutrophils # Man Lymphocytes # (Manual) Monocytes # (Manual) PT INR APTT D-Dimer Heparin Anti-Xa Level ABG pH 7.515 H POC ABG pCO2 POC ABG pO2 ABG pO2 ABG O2 Saturation ABG Base Excess ABG Hemoglobin 11.0 L ABG Oxyhemoglobin ABG Sodium 131.4 L ABG Potassium ABG Chloride 95.0 L ABG Glucose 239 H Oxyhemoglobin Carboxyhemoglobin Sodium Chloride Carbon Dioxide BUN Creatinine Glucose POC Glucose 344 H 245 H Lactic Acid Calcium Ferritin Lactate Dehydrogenase Troponin T C-Reactive Protein Total Protein Albumin Triglycerides HDL Cholesterol Arterial Blood Glucose 239 H Arterial Blood Ionized Calcium 4.5 L Ur Specific [place] Coronavirus (PCR) 03/15/21 03/15/21 03/15/21 06:00 11:40 17:07 WBC RBC Hgb Hct RDW Plt Count Seg Neuts % (Manual) Lymphocytes % (Manual) Nucleated RBC % Seg Neutrophils # Man Lymphocytes # (Manual) Monocytes # (Manual) PT INR APTT D-Dimer Heparin Anti-Xa Level ABG pH POC ABG pCO2 POC ABG pO2 ABG pO2 ABG O2 Saturation ABG Base Excess ABG Hemoglobin ABG Oxyhemoglobin ABG Sodium ABG Potassium ABG Chloride ABG Glucose Oxyhemoglobin Carboxyhemoglobin Sodium 136 L Chloride 94.6 L Carbon Dioxide 31 H BUN Creatinine 0.3 L Glucose 227 H POC Glucose 224 H 324 H Lactic Acid Calcium Ferritin Lactate Dehydrogenase Troponin T C-Reactive Protein Total Protein Albumin Triglycerides HDL Cholesterol Arterial Blood Glucose Arterial Blood Ionized Calcium Ur Specific [place] Coronavirus (PCR) 03/15/21 03/16/21 03/16/21 23:42 05:49 07:43 WBC 26.2 H RBC Hgb Hct RDW Plt Count Seg Neuts % (Manual) Lymphocytes % (Manual) Nucleated RBC % Seg Neutrophils # Man Lymphocytes # (Manual) Monocytes # (Manual) PT INR APTT D-Dimer Heparin Anti-Xa Level ABG pH POC ABG pCO2 POC ABG pO2 ABG pO2 ABG O2 Saturation ABG Base Excess ABG Hemoglobin ABG Oxyhemoglobin ABG Sodium ABG Potassium ABG Chloride ABG Glucose Oxyhemoglobin Carboxyhemoglobin Sodium Chloride Carbon Dioxide BUN Creatinine Glucose POC Glucose 278 H 216 H Lactic Acid Calcium Ferritin Lactate Dehydrogenase Troponin T C-Reactive Protein Total Protein Albumin Triglycerides HDL Cholesterol Arterial Blood Glucose Arterial Blood Ionized Calcium Ur Specific [place] Coronavirus (PCR) 03/16/21 03/16/21 03/16/21 07:43 07:43 07:43 WBC RBC Hgb Hct RDW Plt Count Seg Neuts % (Manual) Lymphocytes % (Manual) Nucleated RBC % Seg Neutrophils # Man Lymphocytes # (Manual) Monocytes # (Manual) PT INR APTT D-Dimer 4124.04 H Heparin Anti-Xa Level 1.69 H ABG pH POC ABG pCO2 POC ABG pO2 ABG pO2 ABG O2 Saturation ABG Base Excess ABG Hemoglobin ABG Oxyhemoglobin ABG Sodium ABG Potassium ABG Chloride ABG Glucose Oxyhemoglobin Carboxyhemoglobin Sodium Chloride Carbon Dioxide 32 H BUN Creatinine 0.4 L Glucose 230 H POC Glucose Lactic Acid Calcium Ferritin Lactate Dehydrogenase 662 H Troponin T C-Reactive Protein Total Protein Albumin Triglycerides HDL Cholesterol Arterial Blood Glucose Arterial Blood Ionized Calcium Ur Specific [place] Coronavirus (PCR) 03/16/21 07:43 WBC RBC Hgb Hct RDW Plt Count Seg Neuts % (Manual) Lymphocytes % (Manual) Nucleated RBC % Seg Neutrophils # Man Lymphocytes # (Manual) Monocytes # (Manual) PT INR APTT D-Dimer Heparin Anti-Xa Level ABG pH POC ABG pCO2 POC ABG pO2 ABG pO2 ABG O2 Saturation ABG Base Excess ABG Hemoglobin ABG Oxyhemoglobin ABG Sodium ABG Potassium ABG Chloride ABG Glucose Oxyhemoglobin Carboxyhemoglobin Sodium Chloride Carbon Dioxide BUN Creatinine Glucose POC Glucose Lactic Acid Calcium Ferritin Lactate Dehydrogenase Troponin T C-Reactive Protein Total Protein Albumin Triglycerides 173 H HDL Cholesterol Arterial Blood Glucose Arterial Blood Ionized Calcium Ur Specific [place] Coronavirus (PCR) Chest x-ray: pending Allied health notes reviewed: nursing
--- NOTE | 2021-03-16 14:56 | Progress Note ---
Assessment and Plan Cultures: Blood culture no growth so far Covid PCR: Positive A/P: 45-year-old female no past medical history admitted with COVID-19 pneumonia and bilateral pulmonary emboli. #Severe COVID-19 pneumonia: Patient presented with 3 days of symptoms, chest x- ray with diffuse bilateral infiltrates, admission O2 sats 50% on room air. Inflammatory markers elevated #Acute hypoxemic respiratory failure: Likely secondary to COVID-19 infection. Currently on the vent #Bilateral pulmonary emboli: Anticoagulation per primary #Obesity: Associated with worse COVID-19 outcomes. Recs: -Dexamethasone 6 mg IV/PO daily for 10 days -Completed remdesivir -Actemra 03/09/2021 -Obtain q48-72h inflammatory markers - ferritin, Ddimer, CRP, LDH -Completed antibiotics. Leukocytosis may be secondary to ongoing steroids, ending soon. -Anticoagulation per hospital protocol -Proning as able Thank you for the consult, we will continue to follow. Lay Finch MD [facility], [place], [facility] O: [phone] F: [phone] Subjective Date of service: 03/16/21 Principal diagnosis: Ac. hypoxemic resp. failure; Septic Shock; COVID-19 Pneumonia; VTE; NSTEMI Interval history: Afebrile, white count is elevated 26.2. All cultures remain negative. She remains on the vent. Objective - Exam Narrative Exam: Physical exam deferred to reduce risk of transmission of COVID-19. Please refer to primary team's note. - Constitutional Vitals: Vital Signs Temp Pulse Resp BP Pulse Ox 99.3 F 124 H 23 125/75 95 03/16/21 12:00 03/16/21 12:00 03/16/21 12:00 03/16/21 12:00 03/16/21 12:00 Temperature -Last 24 Hours Temperature 99.3 F Temperature 99.3 F Temperature 99.4 F Temperature 99.5 F Temperature 99.0 F Temperature 98.9 F Temperature 98.9 F - Labs CBC & Chem 7: 03/16/21 07:43 03/16/21 07:43 Labs: Abnormal lab results 03/15/21 03/15/21 03/16/21 Range/Units 17:07 23:42 05:49 WBC (4.5-11.0) K/mm3 D-Dimer (0-234) ng/mlDDU Heparin Anti-Xa Level (0.3-0.7) U.I./ml Carbon Dioxide (22-30) mmol/L Creatinine (0.6-1.2) mg/dL Glucose (65-100) mg/dL POC Glucose 324 H 278 H 216 H (70-105) mg/dL Lactate Dehydrogenase (91-180) units/L Triglycerides (2-149) mg/dL 03/16/21 03/16/21 03/16/21 Range/Units 07:43 07:43 07:43 WBC 26.2 H (4.5-11.0) K/mm3 D-Dimer 4124.04 H (0-234) ng/mlDDU Heparin Anti-Xa Level (0.3-0.7) U.I./ml Carbon Dioxide 32 H (22-30) mmol/L Creatinine 0.4 L (0.6-1.2) mg/dL Glucose 230 H (65-100) mg/dL POC Glucose (70-105) mg/dL Lactate Dehydrogenase 662 H (91-180) units/L Triglycerides (2-149) mg/dL 03/16/21 03/16/21 Range/Units 07:43 07:43 WBC (4.5-11.0) K/mm3 D-Dimer (0-234) ng/mlDDU Heparin Anti-Xa Level 1.69 H (0.3-0.7) U.I./ml Carbon Dioxide (22-30) mmol/L Creatinine (0.6-1.2) mg/dL Glucose (65-100) mg/dL POC Glucose (70-105) mg/dL Lactate Dehydrogenase (91-180) units/L Triglycerides 173 H (2-149) mg/dL
--- NOTE | 2021-03-16 16:28 | Progress Note ---
<KEITHRALPHDakota - Last Filed: 03/16/21 16:24> Assessment and Plan Assessment and plan: This is a 45-year-old female with no significant past medical history admitted to the hospital service with COVID-19 pneumonia, multiple peripheral bilateral lower lobe pulmonary emboli, septic shock, leukocytosis, hyponatremia, hyp ochloremia, metabolic acidosis, lactic acidosis. COVID-19 pneumonia Septic shock secondary to COVID-19 pneumonia Acute hypoxic respiratory failure Pulmonary embolism Left posterior tibial and peroneal veins DVT Leukocytosis Lactic acidosis (improved) Thrombocytopenia (improved-03/08 HIT NEGATIVE) Oropharyngeal dysphagia Urinary retention Hyperglycemia Acute metabolic encephalopathy Obesity -CCM, infectious disease consulted, appreciate recommendations -03/07 COVID-19 PCR positive -Droplet/aspiration precautions -Steroid therapy -Vitamin C, vitamin D, zinc -S/p remdesivir -S/p Actemra on 03/09/2021 -Antibiotic therapy -Continuous SPO2 monitoring -Wean mechanical ventilation as tolerated, VAP bundle -Pulmonary hygiene -Aspiration precautions -Propofol and fentanyl drip -Seroquel -Heparin drip -Bowel regimen -Tube feedings -SSI, Accu-Cheks every 6, long-acting insulin -Trend COVID-19 inflammatory markers, CBC, BMP DVT/GI prophylaxis: Systemic anticoagulation with heparin, PPI Disposition: ICU The high probability of a clinically significant, sudden or life threatening deterioration of the [pulmonary] system(s) required my full and direct attention, intervention and personal management. The aggregate critical care time was [35] minutes. This time is in addition to time spent performing reported procedures but includes the following: [X] Data Review and interpretation [X] Patient assessment and monitoring of vital signs [X] Documentation [X] Medication orders and management History Interval history: This is a 45-year-old female with significant past medical history presented to emergency department on 03/07 complaining of cough, shortness of breath and diarrhea for 3 days prior to arrival. Upon arrival to emergency department tammi ott was found to be in respiratory distress and initial oxygen saturations were said to be in the 50s and patient was placed on a nonrebreather with improvement of oxygen saturations to 7 days. Patient was subsequently intubated in the emergency department and upon review patient did not receive COVID-19 vaccination. Work-up in the emergency department revealed bilateral pulmonary infiltrates on CXR, leukocytosis of 31,000, hyperglycemia with a blood glucose of 301, elevated D-dimer greater than 10,000., CTA chest showed multiple peripheral bilateral lower lobe pulmonary emboli. Patient was hypotensive in the emergency department and fluid resuscitated and started on vasopressors. Patient will be admitted to the hospital service with COVID-19 PUI, septic shock secondary to pneumonia, pulmonary emboli and acute hypoxic respiratory failure. [facility] and infectious disease were consulted. Patient was started on heparin drip. 03/08: New issues: Thrombocytosis question if this is secondary to HIT. We will send out HIT panel. Monitor platelets. Continue heparin drip at this time. Aw ait pulmonary and ID input. 03/09: Patient noted to have Covid positive pneumonia ID input is appreciated patient on dexamethasone for complete 10 days of therapy now started on remdesivir due to hypoxia also to complete 5 days therapy and Actemra a one- time. We will continue to monitor -Obtain q48-72h inflammatory markers - ferritin, Ddimer, CRP, LDH -Continue ceftriaxone 2 gm IV qday and azithromycin 500 mg PO qday for 5 days given elevated procal -Anticoagulation per hospital protocol -Proning as able I also requested a stat CBC to further evaluate thrombocytosis that was noted yesterday. I called maría elena Serafinmark Hernandez to update and got voicemail left a message. I also called James Hernandez but his phone is unable to accept messages at this time. 03/10: Possible ileus versus bowel obstruction. Will obtain KUB. Continue to hold tube feeds at this time. We will also obtain GI consult if no resolution. Also patient noted to have urinary retention we will proceed with placing a Maya catheter. She does follow commands some when off sedation but gets easily agitated. Continue ICU management at this point. 03/11: Blood sugar still elevated adjusted nighttime insulin for better coverage. KUB concerning for radiopaque object possible tablet. Was not present on 03 08. We will repeat a KUB in a.m. to see if resolution versus ileus. Continue current management for COVID-19. Continue heparin drip for noted pulmonary embolism. Platelets actually improved despite being on heparin doubt HIT. Patient still requires critical care monitoring. Altered mental status still present. 03/12: Worsening leukocytosis this could be secondary to steroids. We will give Lasix today in addition to empiric vitamins. Chest x-ray shows worsening opacities will monitor closely. Continue full mechanical ventilation and restraints for safety. 03/13: At the time my examination patient was on fentanyl at 3 mcg, heparin drip, pressure control ventilation with a rate of 20, pressure support of 20, FiO2 of 35% and PEEP of 12 and ECMO blood change patient ventilation to assist control tidal volume 450, rate of 14, PEEP of 10 in the morning. RN reported the patie nt did not have a BM since admission and [facility] ordered mag citrate x1. 03/14: SBT trial per [facility], leukocytosis and D-dimer is improving. Patient is hyperglycemic and long-acting insulin dosage has been increased. Patient has pseudohyponatremia today. Nurse reported that patient central line was not drawing back blood and Cathflo was ordered. No acute events reported overnight. 03/15: Patient is severely agitated and SBT trial was not attempted today. Patient remains hyperglycemic and insulin has been adjusted accordingly. [facility] will start the patient on Seroquel and attempt to wean propofol. Patient was hypotensive after sedation was increased and she received a 500 mL LR bolus today. We will obtain the ECG in the a.m. to assess QTc. RN to attempt to obtain PIV 03/16: Patient still has moments of severe agitation and her Seroquel will be increased today. Patient's urinary catheter was replaced due to retention patient has been started on Flomax. At the time my examination patient patient was sedated on propofol and fentanyl on AC. Patient still has leukocytosis and hyperglycemia. Insulin increased. We will obtain triglyceride level in the morning. [facility] opted to removal otis and replace CVL with PICC. Hospitalist Physical - Constitutional Vitals: Temp Pulse Resp BP Pulse Ox 99.8 F H 66 17 97/43 98 03/16/21 16:00 03/16/21 15:20 03/16/21 15:20 03/16/21 15:20 03/16/21 15:20 General appearance: Present: well-nourished, obese, other (Intubated and sedated) - EENT Eyes: Present: PERRL - Neck Neck: Present: normal ROM - Respiratory Respiratory effort: normal Respiratory: bilateral: diminished - Cardiovascular Rhythm: regular Heart Sounds: Present: S1 & S2. Absent: systolic murmur, diastolic murmur - Extremities Extremities: no ischemia, pulses intact, pulses symmetrical, No edema, normal temperature, normal color Peripheral Pulses: within normal limits - Abdominal General gastrointestinal: soft, non-tender, non-distended, normal bowel sounds - Integumentary Integumentary: Present: warm, dry - Psychiatric Psychiatric: agitated - Neurologic Neurologic: moves all extremities - Allied Health Allied health notes reviewed: nursing HEART Score - HEART Score Troponin: Troponin T 0.085 ng/mL (0.00-0.029) H 03/07/21 20:31 Results - Labs CBC & Chem 7: 03/16/21 07:43 03/16/21 07:43 Labs: Laboratory Last Values WBC 26.2 K/mm3 (4.5-11.0) H 03/16/21 07:43 RBC 3.72 M/mm3 (3.65-5.03) 03/16/21 07:43 Hgb 10.5 gm/dl (10.1-14.3) 03/16/21 07:43 Hct 31.8 % (30.3-42.9) 03/16/21 07:43 MCV 86 fl (79-97) 03/16/21 07:43 MCH 28 pg (28-32) 03/16/21 07:43 MCHC 33 % (30-34) 03/16/21 07:43 RDW 15.0 % (13.2-15.2) 03/16/21 07:43 Plt Count 319 K/mm3 (140-440) 03/16/21 07:43 Lymph % (Auto) Food Services Coordinator 03/07/21 21:04 [place] % (Auto) Food Services Coordinator 03/07/21 21:04 Eos % (Auto) Food Services Coordinator 03/07/21 21:04 Baso % (Auto) Food Services Coordinator 03/07/21 21:04 Lymph # (Auto) Food Services Coordinator 03/07/21 21:04 [place] # (Auto) Food Services Coordinator 03/07/21 21:04 Eos # (Auto) Food Services Coordinator 03/07/21 21:04 Baso # (Auto) Food Services Coordinator 03/07/21 21:04 Add Manual Diff Complete 03/10/21 01:12 Total Counted 100 03/10/21 01:12 Seg Neutrophils % Food Services Coordinator 03/10/21 01:12 Seg Neuts % (Manual) 89.0 % (40.0-70.0) H 03/10/21 01:12 Band Neutrophils % 11.0 % 03/09/21 12:10 Lymphocytes % (Manual) 6.0 % (13.4-35.0) L 03/10/21 01:12 Monocytes % (Manual) 5.0 % (0.0-7.3) 03/10/21 01:12 Metamyelocytes % 1.0 % 03/09/21 12:10 Myelocytes % 1.0 % 03/09/21 12:10 Nucleated RBC % Not Reportable 03/10/21 01:12 Seg Neutrophils # Food Services Coordinator 03/07/21 21:04 Seg Neutrophils # Man 20.1 K/mm3 (1.8-7.7) H 03/10/21 01:12 Band Neutrophils # 0.0 K/mm3 03/10/21 01:12 Lymphocytes # (Manual) 1.4 K/mm3 (1.2-5.4) 03/10/21 01:12 Abs React Lymphs (Man) 0.0 K/mm3 03/10/21 01:12 Monocytes # (Manual) 1.1 K/mm3 (0.0-0.8) H 03/10/21 01:12 Eosinophils # (Manual) 0.0 K/mm3 (0.0-0.4) 03/10/21 01:12 Basophils # (Manual) 0.0 K/mm3 (0.0-0.1) 03/10/21 01:12 Metamyelocytes # 0.0 K/mm3 03/10/21 01:12 Myelocytes # 0.0 K/mm3 03/10/21 01:12 Promyelocytes # 0.0 K/mm3 03/10/21 01:12 Blast Cells # 0.0 K/mm3 03/10/21 01:12 WBC Morphology Not Reportable 03/10/21 01:12 Hypersegmented Neuts Not Reportable 03/10/21 01:12 Hyposegmented Neuts Not Reportable 03/10/21 01:12 Hypogranular Neuts Not Reportable 03/10/21 01:12 Smudge Cells Not Reportable 03/10/21 01:12 Toxic Granulation Not Reportable 03/10/21 01:12 Toxic Vacuolation Not Reportable 03/10/21 01:12 Dohle Bodies Not Reportable 03/10/21 01:12 Pelger-Huet Anomaly Not Reportable 03/10/21 01:12 Jarrett Rods Not Reportable 03/10/21 01:12 Platelet Estimate Not Reportable 03/10/21 01:12 Clumped Platelets Not Reportable 03/10/21 01:12 Plt Clumps, EDTA Not Reportable 03/10/21 01:12 Large Platelets Not Reportable 03/10/21 01:12 Giant Platelets Not Reportable 03/10/21 01:12 Platelet Satelliting Not Reportable 03/10/21 01:12 Plt Morphology Comment Not Reportable 03/10/21 01:12 RBC Morphology Normal 03/10/21 01:12 Dimorphic RBCs Not Reportable 03/10/21 01:12 Polychromasia Not Reportable 03/10/21 01:12 Hypochromasia Not Reportable 03/10/21 01:12 Poikilocytosis Not Reportable 03/10/21 01:12 Anisocytosis Not Reportable 03/10/21 01:12 Microcytosis Not Reportable 03/10/21 01:12 Macrocytosis Not Reportable 03/10/21 01:12 Spherocytes Not Reportable 03/10/21 01:12 Pappenheimer Bodies Not Reportable 03/10/21 01:12 Sickle Cells Not Reportable 03/10/21 01:12 Target Cells Not Reportable 03/10/21 01:12 Tear Drop Cells Not Reportable 03/10/21 01:12 Ovalocytes Not Reportable 03/10/21 01:12 Helmet Cells Not Reportable 03/10/21 01:12 [place] Bodies Not Reportable 03/10/21 01:12 [place] Rings Not Reportable 03/10/21 01:12 [place] Cells Not Reportable 03/10/21 01:12 Bite Cells Not Reportable 03/10/21 01:12 Crenated Cell Not Reportable 03/10/21 01:12 Elliptocytes Not Reportable 03/10/21 01:12 Acanthocytes (Spur) Not Reportable 03/10/21 01:12 Rouleaux Not Reportable 03/10/21 01:12 Hemoglobin C Crystals Not Reportable 03/10/21 01:12 Schistocytes Not Reportable 03/10/21 01:12 Malaria parasites Not Reportable 03/10/21 01:12 Joss Bodies Not Reportable 03/10/21 01:12 Hem Pathologist Commnt No 03/10/21 01:12 PT 18.5 Sec. (12.2-14.9) H 03/08/21 07:55 INR 1.49 (0.87-1.13) H 03/08/21 07:55 APTT 113.5 Sec. (24.2-36.6) H* 03/08/21 07:55 D-Dimer 4124.04 ng/mlDDU (0-234) H 03/16/21 07:43 Heparin Anti-Xa Level 1.69 U.I./ml (0.3-0.7) H 03/16/21 07:43 Heparin Anti-Xa, Unfract Negative (Negative) 03/08/21 13:00 ABG pH 7.515 (7.320-7.450) H 03/15/21 03:10 POC ABG pCO2 35.4 mmHg (32.0-48.0) 03/15/21 03:10 ABG pCO2 39.5 mm Hg 03/07/21 Unknown POC ABG pO2 97.4 mmHg (83-108) 03/15/21 03:10 ABG pO2 62.6 mm Hg (80.0-90.0) L 03/07/21 Unknown POC ABG HCO3 27.9 03/15/21 03:10 ABG HCO3 20.7 mmol/L (20.0-26.0) 03/07/21 Unknown ABG O2 Saturation 97.7 (0-100) 03/15/21 03:10 ABG O2 Content 15.1 (0.0-44) 03/07/21 Unknown POC ABG Base Excess 4.9 03/15/21 03:10 ABG Base Excess -4.7 mmol/L (-2.0-3.0) L 03/07/21 Unknown ABG Hemoglobin 11.0 (12.0-17.5) L 03/15/21 03:10 ABG Oxyhemoglobin 96.9 (94-98) 03/15/21 03:10 ABG Carboxyhemoglobin 1.4 % (0.0-5.0) 03/07/21 Unknown ABG Methemoglobin 0.3 (0.0-1.5) 03/15/21 03:10 ABG Sodium 131.4 mmol/L (136.0-145.0) L 03/15/21 03:10 ABG Potassium 3.5 mmol/L (3.40-4.50) 03/15/21 03:10 ABG Chloride 95.0 mmol/L (98-107) L 03/15/21 03:10 ABG Glucose 239 mg/dL (65-95) H 03/15/21 03:10 Oxyhemoglobin 87.3 % (95.0-99.0) L 03/07/21 Unknown Carboxyhemoglobin 0.5 (0.5-1.5) 03/15/21 03:10 FiO2 100 % 03/07/21 Unknown FiO2 % 35.0 03/15/21 03:10 Sodium 139 mmol/L (137-145) 03/16/21 07:43 Potassium 4.3 mmol/L (3.6-5.0) 03/16/21 07:43 Chloride 100.0 mmol/L (98-107) 03/16/21 07:43 Carbon Dioxide 32 mmol/L (22-30) H 03/16/21 07:43 Anion Gap 11 mmol/L 03/16/21 07:43 BUN 17 mg/dL (7-17) 03/16/21 07:43 Creatinine 0.4 mg/dL (0.6-1.2) L 03/16/21 07:43 Estimated GFR > 60 ml/min 03/16/21 07:43 BUN/Creatinine Ratio 43 % 03/16/21 07:43 Glucose 230 mg/dL (65-100) H 03/16/21 07:43 POC Glucose 239 mg/dL (70-105) H 03/16/21 11:00 Lactic Acid 1.90 mmol/L (0.7-2.0) 03/10/21 01:12 Calcium 8.8 mg/dL (8.4-10.2) 03/16/21 07:43 Ferritin 151.5 ng/mL (10.0-200.0) 03/16/21 07:43 Total Bilirubin 0.30 mg/dL (0.1-1.2) 03/11/21 04:40 AST 19 units/L (5-40) 03/11/21 04:40 ALT 12 units/L (7-56) 03/11/21 04:40 Alkaline Phosphatase 107 units/L (35-129) 03/11/21 04:40 Lactate Dehydrogenase 662 units/L (91-180) H 03/16/21 07:43 Troponin T 0.085 ng/mL (0.00-0.029) H 03/07/21 20:31 C-Reactive Protein 0.60 mg/dL (0.00-1.30) 03/16/21 07:43 Total Protein 6.1 g/dL (6.3-8.2) L 03/11/21 04:40 Albumin 3.2 g/dL (3.9-5) L 03/11/21 04:40 Albumin/Globulin Ratio 1.1 % 03/11/21 04:40 Triglycerides 173 mg/dL (2-149) H 03/16/21 07:43 Cholesterol 141 mg/dL (50-199) 03/07/21 20:31 LDL Cholesterol Direct 72 mg/dL (50-130) 03/07/21 20:31 HDL Cholesterol 34 mg/dL (40-59) L 03/07/21 20:31 Cholesterol/HDL Ratio 4.14 % 03/07/21 20:31 Serotonin Release Assay See scanned result 03/08/21 13:00 Procalcitonin 0.20 ng/mL (<0.15) 03/13/21 08:08 HCG, Qual Negative (Negative) 03/07/21 22:48 Arterial Blood Glucose 239 mg/dL (65-95) H 03/15/21 03:10 Arterial Blood Ionized Calcium 4.5 mg/dL (4.6-5.3) L 03/15/21 03:10 Urine Color Yellow (Yellow) 03/08/21 05:51 Urine Turbidity Clear (Clear) 03/08/21 05:51 Urine pH 6.0 (5.0-7.0) 03/08/21 05:51 Ur Specific Old[place] > 1.050 (1.003-1.030) H 03/08/21 05:51 Urine Protein 100 mg/dl mg/dL (Negative) 03/08/21 05:51 Urine Glucose (UA) Neg mg/dL (Negative) 03/08/21 05:51 Urine Ketones Neg mg/dL (Negative) 03/08/21 05:51 Urine Blood Neg (Negative) 03/08/21 05:51 Urine Nitrite Neg (Negative) 03/08/21 05:51 Urine Bilirubin Neg (Negative) 03/08/21 05:51 Urine Urobilinogen 4.0 mg/dL (<2.0) 03/08/21 05:51 Ur Leukocyte Esterase Neg (Negative) 03/08/21 05:51 Urine WBC (Auto) 5.0 /HPF (0.0-6.0) 03/08/21 05:51 Urine RBC (Auto) 5.0 /HPF (0.0-6.0) 03/08/21 05:51 U Epithel Cells (Auto) < 1.0 /HPF (0-13.0) 03/08/21 05:51 Urine Bacteria (Auto) 1+ /HPF (Negative) 03/08/21 05:51 Urine Mucus Few /HPF 03/08/21 05:51 Heparin-induced Plt Ab Negative (Negative) 03/08/21 13:00 UF Heparin High Dose 0 % Release 03/08/21 13:00 JESSY UFH Low Dose 0.1 0 % Release 03/08/21 13:00 JESSY UFH Low Dose 0.5 0 % Release 03/08/21 13:00 Coronavirus (PCR) Positive (Negative) A 03/07/21 Unknown Maya/IV: Voiding Method Indwelling Catheter Active Medications - Current Medications Current Medications: Generic Name Dose Route Start Last Admin Trade Name Freq PRN Reason Stop Dose Admin Acetaminophen 650 mg 03/10/21 00:30 Acetaminophen 650 Mg Rect Supp HI Q4H PRN Pain, Mild (1-3) Lipase/Protease/Amylase 1 each 03/08/21 13:40 Lipase 10,500/Protease 25,000/Amylase 43,750 (Units) Dr Coreas FEEDTUBE PRN PRN For Clogged Feeding Tube Ascorbic Acid 1,000 mg 03/12/21 10:00 03/16/21 09:11 Ascorbic Acid 500 Mg Tab PO 1,000 mg BID MARCO ANTONIO Administration Cholecalciferol 5,000 unit 03/12/21 10:00 03/16/21 09:14 Cholecalciferol (Vit D3) 5,000 Unit Tab PO 5,000 unit DAILY MARCO ANTONIO Administration Dexamethasone 8 mg 03/08/21 10:00 03/16/21 09:10 Dexamethasone 4 Mg/Ml Vial IV 03/17/21 10:01 8 mg DAILY MARCO ANTONIO Administration Dextrose 50 ml 03/07/21 22:57 Dextrose 50% In Water (25gm) 50 Ml Syringe IV Q30MIN PRN Hypoglycemia Protocol Famotidine 20 mg 03/13/21 10:00 03/16/21 09:10 Famotidine 20 Mg Tab PO 20 mg BID MARCO ANTONIO Administration Fentanyl 50 mcg 03/07/21 21:20 03/15/21 15:18 Fentanyl 100 Mcg/2 Ml Inj IV 50 mcg Q10MIN PRN Administration ANALGESIA Heparin Sodium (Porcine) 5,000 unit 03/16/21 12:00 Heparin 10,000 Units/10 Ml Vial IV Q6H PRN Anti-Xa Assay < 0.1 units/ml Hydrophilic Ointment 1 applic 03/08/21 12:42 Lip Therapy Vaseline TP Q2HR PRN Dry Lips Propofol 1,000 mg in 100 mls @ 3.084 mls/hr 03/07/21 21:00 03/16/21 15:09 Diprivan 10 Mg/Ml IV 25 mcg/kg/min TITR MARCO ANTONIO 15.42 mls/hr Administration Protocol 5 MCG/KG/MIN Fentanyl Citrate 2,000 mcg in 100 mls @ 5.14 mls/hr 03/07/21 22:00 03/16/21 14:23 Fentanyl Drip Premix IV 2 mcg/kg/hr TITR MARCO ANTONIO 10.28 mls/hr Administration Protocol 1 MCG/KG/HR Norepinephrine 4 mg in 250 mls @ 7.5 mls/hr 03/07/21 23:45 03/08/21 08:15 Levophed Drip 4 Mg/Ns 250 Ml IV 0 mcg/min TITR MARCO ANTONIO 0 mls/hr Titration Protocol 2 MCG/MIN Heparin Sodium/Sodium Chloride 25,000 unit in 500 mls @ 30 mls/hr 03/08/21 04:00 03/16/21 11:00 Heparin/ 0.45% Nacl-25,000 Unit/500 Ml IV 2,000 units/hr TITR MARCO ANTONIO 40 mls/hr Titration Protocol 1,500 UNITS/HR Insulin Glargine 40 units 03/15/21 22:00 03/15/21 22:21 Insulin Glargine 100 Units/Ml SUB-Q 40 units QHS MARCO ANTONIO Administration Insulin Glargine 25 units 03/16/21 10:00 03/16/21 09:10 Insulin Glargine 100 Units/Ml SUB-Q 25 units DAILY MARCO ANTONIO Administration Insulin Human Lispro 0 unit 03/08/21 12:00 03/16/21 12:13 Insulin Lispro 100 Unit/Ml SUB-Q 4 unit Q6HR MARCO ANTONIO Administration Protocol Magnesium Hydroxide 30 ml 03/07/21 22:57 03/13/21 10:13 Magnesium Hydroxide (Mom) Oral Liqd Udc PO 30 ml Q4H PRN Administration Constipation Morphine Sulfate 2 mg 03/07/21 22:57 03/09/21 21:29 Morphine 2 Mg/1 Ml Inj IV 2 mg Q4H PRN Administration Pain, Moderate (4-6) Multi-Ingred Cream/Lotion/Oil/Oint 1 applic 03/08/21 12:42 Mineral Oil/Petrolatum, White Ophth Oint 3.5 Gm OU Q4HR PRN Dry Eye(s) Ondansetron HCl 4 mg 03/07/21 22:57 Ondansetron 4 Mg/2 Ml Inj IV Q8H PRN Nausea And Vomiting Quetiapine Fumarate 250 mg 03/15/21 22:00 03/16/21 09:11 Quetiapine 100 Mg Tab FEEDTUBE 250 mg BID MARCO ANTONIO Administration Senna/Docusate Sodium 1 tab 03/08/21 22:00 03/16/21 09:10 Sennosides/Docusate Sodium 8.6/50 Mg Tab FEEDTUBE 1 tab BID MARCO ANTONIO Administration Simple Syrup 15 ml 03/08/21 13:40 Simple Syrup 15 Ml FEEDTUBE PRN PRN Hypoglycemia Simple Syrup 30 ml 03/08/21 13:40 Simple Syrup 15 Ml FEEDTUBE PRN PRN Hypoglycemia Sodium Bicarbonate 325 mg 03/08/21 13:40 Sodium Bicarbonate 325 Mg Tab FEEDTUBE PRN PRN For Clogged Feeding Tube Sodium Chloride 10 ml 03/08/21 10:00 03/16/21 09:10 Sodium Chloride 0.9% 10 Ml Flush Syringe IV 10 ml BID MARCO ANTONIO Administration Sodium Chloride 10 ml 03/07/21 22:57 Sodium Chloride 0.9% 10 Ml Flush Syringe IV PRN PRN LINE FLUSH Tamsulosin HCl 0.4 mg 03/10/21 14:00 03/16/21 09:11 Tamsulosin 0.4 Mg Cap PO 0.4 mg QDAY MARCO ANTONIO Administration Zinc Sulfate 220 mg 03/12/21 10:00 03/16/21 09:11 Zinc Sulfate 220 Mg Cap PO 220 mg QDAY MARCO ANTONIO Administration Nutrition/Malnutrition Assess - Dietary Evaluation Nutrition/Malnutrition Findings: Nutrition Notes Start: 03/08/21 12:27 Freq: Status: Active Protocol: Document 03/15/21 12:24 (Rec: 03/15/21 12:28 [id number]) Nutrition Notes Initial or Follow up Reassessment Current Diagnosis Sepsis,Respiratory Failure Other Pertinent Diagnosis Pneu, r/o COVID-19, pulmonary embolism Current Diet Vital AF at 50 ml/hr Labs/Tests Na 136 Bg 227 Pertinent Medications Propofol at 21.588 ml/hr ( provides 570 kcal) Decadron Height 5 ft Weight 102.8 kg [place] Body Weight (kg) 45.45 BMI 44.2 Weight Status Morbidly Obese Subjective/Other Information FU for TF tolerance. Pt now with BM. MD will increase insulin for BG. Percent of energy/protein needs met: 100%/79% Burn Absent Trauma Absent GI Symptoms None Current % PO Negligible Minimum of two criteria No Reduced Log [place]oper Strength Measurably Reduced (severe) #1 Nutrition Diagnosis Inadequate oral intake Diagnosis Progress(for reassessment Continues documentation) Is patient on ventilator? Yes Is Patient Ambulatory and/or Out of Bed No REE-([facility]-confined to bed) 1904.676 Kcal/Kg value to use for calculation 14 Approximate Energy Requirements Using 1439 kcal/Kg Calculation Used for Recommendations Kcal/kg Additional Notes Pro needs up to 2.5g/kg IBW: 114g/day Fluid needs 1ml/kcal Nutrition Intervention Change Diet Order: Contiue Nutrition Support: Vital AF 1.2 at 50ml/hr with 80ml water flush q4h. Kcal 1,440 Protein (gm) 90 Carbohydrates (gm) 133 Fat (gm) 65 Fluid (mL) 937 Fiber (gm) 6 Goal #1 TF tolerance Goal #2 TF (at goal rate) to meet at least 75% energy and pro needs Anticipated Discharge Needs: Unable to determine at this time Follow-Up By: 03/17/21 Additional Comments FU for stable TF <GIACOMO ROSE - Last Filed: 03/16/21 18:27> Assessment and Plan Assessment and plan: Agree with assessment and plan as outlined by nurse practitioner. Patient seen and examined, sedated, intubated. Blood pressure is improved today. Spoke with Saqib Mcfadden, son, updated him on his mother's condition at this time. All questions answered. Hospitalist Physical - Constitutional Vitals: Temp Pulse Resp BP Pulse Ox 99.8 F H 59 L 15 96/46 100 03/16/21 16:00 03/16/21 17:20 03/16/21 17:20 03/16/21 17:20 03/16/21 17:20 HEART Score - HEART Score Troponin: Troponin T 0.085 ng/mL (0.00-0.029) H 03/07/21 20:31 Results - Labs CBC & Chem 7: 03/16/21 07:43 03/16/21 07:43 Labs: Laboratory Last Values WBC 26.2 K/mm3 (4.5-11.0) H 03/16/21 07:43 RBC 3.72 M/mm3 (3.65-5.03) 03/16/21 07:43 Hgb 10.5 gm/dl (10.1-14.3) 03/16/21 07:43 Hct 31.8 % (30.3-42.9) 03/16/21 07:43 MCV 86 fl (79-97) 03/16/21 07:43 MCH 28 pg (28-32) 03/16/21 07:43 MCHC 33 % (30-34) 03/16/21 07:43 RDW 15.0 % (13.2-15.2) 03/16/21 07:43 Plt Count 319 K/mm3 (140-440) 03/16/21 07:43 Lymph % (Auto) Food Services Coordinator 03/07/21 21:04 [place] % (Auto) Food Services Coordinator 03/07/21 21:04 Eos % (Auto) Food Services Coordinator 03/07/21 21:04 Baso % (Auto) Food Services Coordinator 03/07/21 21:04 Lymph # (Auto) Food Services Coordinator 03/07/21 21:04 [place] # (Auto) Food Services Coordinator 03/07/21 21:04 Eos # (Auto) Food Services Coordinator 03/07/21 21:04 Baso # (Auto) Food Services Coordinator 03/07/21 21:04 Add Manual Diff Complete 03/10/21 01:12 Total Counted 100 03/10/21 01:12 Seg Neutrophils % Food Services Coordinator 03/10/21 01:12 Seg Neuts % (Manual) 89.0 % (40.0-70.0) H 03/10/21 01:12 Band Neutrophils % 11.0 % 03/09/21 12:10 Lymphocytes % (Manual) 6.0 % (13.4-35.0) L 03/10/21 01:12 Monocytes % (Manual) 5.0 % (0.0-7.3) 03/10/21 01:12 Metamyelocytes % 1.0 % 03/09/21 12:10 Myelocytes % 1.0 % 03/09/21 12:10 Nucleated RBC % Not Reportable 03/10/21 01:12 Seg Neutrophils # Food Services Coordinator 03/07/21 21:04 Seg Neutrophils # Man 20.1 K/mm3 (1.8-7.7) H 03/10/21 01:12 Band Neutrophils # 0.0 K/mm3 03/10/21 01:12 Lymphocytes # (Manual) 1.4 K/mm3 (1.2-5.4) 03/10/21 01:12 Abs React Lymphs (Man) 0.0 K/mm3 03/10/21 01:12 Monocytes # (Manual) 1.1 K/mm3 (0.0-0.8) H 03/10/21 01:12 Eosinophils # (Manual) 0.0 K/mm3 (0.0-0.4) 03/10/21 01:12 Basophils # (Manual) 0.0 K/mm3 (0.0-0.1) 03/10/21 01:12 Metamyelocytes # 0.0 K/mm3 03/10/21 01:12 Myelocytes # 0.0 K/mm3 03/10/21 01:12 Promyelocytes # 0.0 K/mm3 03/10/21 01:12 Blast Cells # 0.0 K/mm3 03/10/21 01:12 WBC Morphology Not Reportable 03/10/21 01:12 Hypersegmented Neuts Not Reportable 03/10/21 01:12 Hyposegmented Neuts Not Reportable 03/10/21 01:12 Hypogranular Neuts Not Reportable 03/10/21 01:12 Smudge Cells Not Reportable 03/10/21 01:12 Toxic Granulation Not Reportable 03/10/21 01:12 Toxic Vacuolation Not Reportable 03/10/21 01:12 Dohle Bodies Not Reportable 03/10/21 01:12 Pelger-Huet Anomaly Not Reportable 03/10/21 01:12 Jarrett Rods Not Reportable 03/10/21 01:12 Platelet Estimate Not Reportable 03/10/21 01:12 Clumped Platelets Not Reportable 03/10/21 01:12 Plt Clumps, EDTA Not Reportable 03/10/21 01:12 Large Platelets Not Reportable 03/10/21 01:12 Giant Platelets Not Reportable 03/10/21 01:12 Platelet Satelliting Not Reportable 03/10/21 01:12 Plt Morphology Comment Not Reportable 03/10/21 01:12 RBC Morphology Normal 03/10/21 01:12 Dimorphic RBCs Not Reportable 03/10/21 01:12 Polychromasia Not Reportable 03/10/21 01:12 Hypochromasia Not Reportable 03/10/21 01:12 Poikilocytosis Not Reportable 03/10/21 01:12 Anisocytosis Not Reportable 03/10/21 01:12 Microcytosis Not Reportable 03/10/21 01:12 Macrocytosis Not Reportable 03/10/21 01:12 Spherocytes Not Reportable 03/10/21 01:12 Pappenheimer Bodies Not Reportable 03/10/21 01:12 Sickle Cells Not Reportable 03/10/21 01:12 Target Cells Not Reportable 03/10/21 01:12 Tear Drop Cells Not Reportable 03/10/21 01:12 Ovalocytes Not Reportable 03/10/21 01:12 Helmet Cells Not Reportable 03/10/21 01:12 [place] Bodies Not Reportable 03/10/21 01:12 [place] Rings Not Reportable 03/10/21 01:12 [place] Cells Not Reportable 03/10/21 01:12 Bite Cells Not Reportable 03/10/21 01:12 Crenated Cell Not Reportable 03/10/21 01:12 Elliptocytes Not Reportable 03/10/21 01:12 Acanthocytes (Spur) Not Reportable 03/10/21 01:12 Rouleaux Not Reportable 03/10/21 01:12 Hemoglobin C Crystals Not Reportable 03/10/21 01:12 Schistocytes Not Reportable 03/10/21 01:12 Malaria parasites Not Reportable 03/10/21 01:12 Joss Bodies Not Reportable 03/10/21 01:12 Hem Pathologist Commnt No 03/10/21 01:12 PT 18.5 Sec. (12.2-14.9) H 03/08/21 07:55 INR 1.49 (0.87-1.13) H 03/08/21 07:55 APTT 113.5 Sec. (24.2-36.6) H* 03/08/21 07:55 D-Dimer 4124.04 ng/mlDDU (0-234) H 03/16/21 07:43 Heparin Anti-Xa Level 0.78 U.I./ml (0.3-0.7) H 03/16/21 17:06 Heparin Anti-Xa, Unfract Negative (Negative) 03/08/21 13:00 ABG pH 7.515 (7.320-7.450) H 03/15/21 03:10 POC ABG pCO2 35.4 mmHg (32.0-48.0) 03/15/21 03:10 ABG pCO2 39.5 mm Hg 03/07/21 Unknown POC ABG pO2 97.4 mmHg (83-108) 03/15/21 03:10 ABG pO2 62.6 mm Hg (80.0-90.0) L 03/07/21 Unknown POC ABG HCO3 27.9 03/15/21 03:10 ABG HCO3 20.7 mmol/L (20.0-26.0) 03/07/21 Unknown ABG O2 Saturation 97.7 (0-100) 03/15/21 03:10 ABG O2 Content 15.1 (0.0-44) 03/07/21 Unknown POC ABG Base Excess 4.9 03/15/21 03:10 ABG Base Excess -4.7 mmol/L (-2.0-3.0) L 03/07/21 Unknown ABG Hemoglobin 11.0 (12.0-17.5) L 03/15/21 03:10 ABG Oxyhemoglobin 96.9 (94-98) 03/15/21 03:10 ABG Carboxyhemoglobin 1.4 % (0.0-5.0) 03/07/21 Unknown ABG Methemoglobin 0.3 (0.0-1.5) 03/15/21 03:10 ABG Sodium 131.4 mmol/L (136.0-145.0) L 03/15/21 03:10 ABG Potassium 3.5 mmol/L (3.40-4.50) 03/15/21 03:10 ABG Chloride 95.0 mmol/L (98-107) L 03/15/21 03:10 ABG Glucose 239 mg/dL (65-95) H 03/15/21 03:10 Oxyhemoglobin 87.3 % (95.0-99.0) L 03/07/21 Unknown Carboxyhemoglobin 0.5 (0.5-1.5) 03/15/21 03:10 FiO2 100 % 03/07/21 Unknown FiO2 % 35.0 03/15/21 03:10 Sodium 139 mmol/L (137-145) 03/16/21 07:43 Potassium 4.3 mmol/L (3.6-5.0) 03/16/21 07:43 Chloride 100.0 mmol/L (98-107) 03/16/21 07:43 Carbon Dioxide 32 mmol/L (22-30) H 03/16/21 07:43 Anion Gap 11 mmol/L 03/16/21 07:43 BUN 17 mg/dL (7-17) 03/16/21 07:43 Creatinine 0.4 mg/dL (0.6-1.2) L 03/16/21 07:43 Estimated GFR > 60 ml/min 03/16/21 07:43 BUN/Creatinine Ratio 43 % 03/16/21 07:43 Glucose 230 mg/dL (65-100) H 03/16/21 07:43 POC Glucose 315 mg/dL (70-105) H 03/16/21 17:07 Lactic Acid 1.90 mmol/L (0.7-2.0) 03/10/21 01:12 Calcium 8.8 mg/dL (8.4-10.2) 03/16/21 07:43 Ferritin 151.5 ng/mL (10.0-200.0) 03/16/21 07:43 Total Bilirubin 0.30 mg/dL (0.1-1.2) 03/11/21 04:40 AST 19 units/L (5-40) 03/11/21 04:40 ALT 12 units/L (7-56) 03/11/21 04:40 Alkaline Phosphatase 107 units/L (35-129) 03/11/21 04:40 Lactate Dehydrogenase 662 units/L (91-180) H 03/16/21 07:43 Troponin T 0.085 ng/mL (0.00-0.029) H 03/07/21 20:31 C-Reactive Protein 0.60 mg/dL (0.00-1.30) 03/16/21 07:43 Total Protein 6.1 g/dL (6.3-8.2) L 03/11/21 04:40 Albumin 3.2 g/dL (3.9-5) L 03/11/21 04:40 Albumin/Globulin Ratio 1.1 % 03/11/21 04:40 Triglycerides 173 mg/dL (2-149) H 03/16/21 07:43 Cholesterol 141 mg/dL (50-199) 03/07/21 20:31 LDL Cholesterol Direct 72 mg/dL (50-130) 03/07/21 20:31 HDL Cholesterol 34 mg/dL (40-59) L 03/07/21 20:31 Cholesterol/HDL Ratio 4.14 % 03/07/21 20:31 Serotonin Release Assay See scanned result 03/08/21 13:00 Procalcitonin 0.20 ng/mL (<0.15) 03/13/21 08:08 HCG, Qual Negative (Negative) 03/07/21 22:48 Arterial Blood Glucose 239 mg/dL (65-95) H 03/15/21 03:10 Arterial Blood Ionized Calcium 4.5 mg/dL (4.6-5.3) L 03/15/21 03:10 Urine Color Yellow (Yellow) 03/08/21 05:51 Urine Turbidity Clear (Clear) 03/08/21 05:51 Urine pH 6.0 (5.0-7.0) 03/08/21 05:51 Ur Specific [place] > 1.050 (1.003-1.030) H 03/08/21 05:51 Urine Protein 100 mg/dl mg/dL (Negative) 03/08/21 05:51 Urine Glucose (UA) Neg mg/dL (Negative) 03/08/21 05:51 Urine Ketones Neg mg/dL (Negative) 03/08/21 05:51 Urine Blood Neg (Negative) 03/08/21 05:51 Urine Nitrite Neg (Negative) 03/08/21 05:51 Urine Bilirubin Neg (Negative) 03/08/21 05:51 Urine Urobilinogen 4.0 mg/dL (<2.0) 03/08/21 05:51 Ur Leukocyte Esterase Neg (Negative) 03/08/21 05:51 Urine WBC (Auto) 5.0 /HPF (0.0-6.0) 03/08/21 05:51 Urine RBC (Auto) 5.0 /HPF (0.0-6.0) 03/08/21 05:51 U Epithel Cells (Auto) < 1.0 /HPF (0-13.0) 03/08/21 05:51 Urine Bacteria (Auto) 1+ /HPF (Negative) 03/08/21 05:51 Urine Mucus Few /HPF 03/08/21 05:51 Heparin-induced Plt Ab Negative (Negative) 03/08/21 13:00 UF Heparin High Dose 0 % Release 03/08/21 13:00 JESSY UFH Low Dose 0.1 0 % Release 03/08/21 13:00 JESSY UFH Low Dose 0.5 0 % Release 03/08/21 13:00 Coronavirus (PCR) Positive (Negative) A 03/07/21 Unknown Maya/IV: Voiding Method Indwelling Catheter Active Medications - Current Medications Current Medications: Generic Name Dose Route Start Last Admin Trade Name Freq PRN Reason Stop Dose Admin Acetaminophen 650 mg 03/10/21 00:30 Acetaminophen 650 Mg Rect Supp HI Q4H PRN Pain, Mild (1-3) Lipase/Protease/Amylase 1 each 03/08/21 13:40 Lipase 10,500/Protease 25,000/Amylase 43,750 (Units) Dr Coreas FEEDTUBE PRN PRN For Clogged Feeding Tube Ascorbic Acid 1,000 mg 03/12/21 10:00 03/16/21 09:11 Ascorbic Acid 500 Mg Tab PO 1,000 mg BID MARCO ANTONIO Administration Cholecalciferol 5,000 unit 03/12/21 10:00 03/16/21 09:14 Cholecalciferol (Vit D3) 5,000 Unit Tab PO 5,000 unit DAILY MARCO ANTONIO Administration Dexamethasone 8 mg 03/08/21 10:00 03/16/21 09:10 Dexamethasone 4 Mg/Ml Vial IV 03/17/21 10:01 8 mg DAILY MARCO ANTONIO Administration Dextrose 50 ml 03/07/21 22:57 Dextrose 50% In Water (25gm) 50 Ml Syringe IV Q30MIN PRN Hypoglycemia Protocol Famotidine 20 mg 03/13/21 10:00 03/16/21 09:10 Famotidine 20 Mg Tab PO 20 mg BID MARCO ANTONIO Administration Fentanyl 50 mcg 03/07/21 21:20 03/15/21 15:18 Fentanyl 100 Mcg/2 Ml Inj IV 50 mcg Q10MIN PRN Administration ANALGESIA Heparin Sodium (Porcine) 5,000 unit 03/16/21 12:00 Heparin 10,000 Units/10 Ml Vial IV Q6H PRN Anti-Xa Assay < 0.1 units/ml Hydrophilic Ointment 1 applic 03/08/21 12:42 Lip Therapy Vaseline TP Q2HR PRN Dry Lips Propofol 1,000 mg in 100 mls @ 3.084 mls/hr 03/07/21 21:00 03/16/21 15:09 Diprivan 10 Mg/Ml IV 25 mcg/kg/min TITR MARCO ANTONIO 15.42 mls/hr Administration Protocol 5 MCG/KG/MIN Fentanyl Citrate 2,000 mcg in 100 mls @ 5.14 mls/hr 03/07/21 22:00 03/16/21 14:23 Fentanyl Drip Premix IV 2 mcg/kg/hr TITR MARCO ANTONIO 10.28 mls/hr Administration Protocol 1 MCG/KG/HR Norepinephrine 4 mg in 250 mls @ 7.5 mls/hr 03/07/21 23:45 03/08/21 08:15 Levophed Drip 4 Mg/Ns 250 Ml IV 0 mcg/min TITR MARCO ANTONIO 0 mls/hr Titration Protocol 2 MCG/MIN Heparin Sodium/Sodium Chloride 25,000 unit in 500 mls @ 30 mls/hr 03/08/21 04:00 03/16/21 18:23 Heparin/ 0.45% Nacl-25,000 Unit/500 Ml IV Infused TITR MARCO ANTONIO Titration Protocol 1,500 UNITS/HR Insulin Glargine 40 units 03/15/21 22:00 03/15/21 22:21 Insulin Glargine 100 Units/Ml SUB-Q 40 units QHS MARCO ANTONIO Administration Insulin Glargine 25 units 03/16/21 10:00 03/16/21 09:10 Insulin Glargine 100 Units/Ml SUB-Q 25 units DAILY MARCO ANTONIO Administration Insulin Human Lispro 0 unit 03/08/21 12:00 03/16/21 17:54 Insulin Lispro 100 Unit/Ml SUB-Q 8 unit Q6HR MARCO ANTONIO Administration Protocol Magnesium Hydroxide 30 ml 03/07/21 22:57 03/13/21 10:13 Magnesium Hydroxide (Mom) Oral Liqd Udc PO 30 ml Q4H PRN Administration Constipation Morphine Sulfate 2 mg 03/07/21 22:57 03/09/21 21:29 Morphine 2 Mg/1 Ml Inj IV 2 mg Q4H PRN Administration Pain, Moderate (4-6) Multi-Ingred Cream/Lotion/Oil/Oint 1 applic 03/08/21 12:42 Mineral Oil/Petrolatum, White Ophth Oint 3.5 Gm OU Q4HR PRN Dry Eye(s) Ondansetron HCl 4 mg 03/07/21 22:57 Ondansetron 4 Mg/2 Ml Inj IV Q8H PRN Nausea And Vomiting Quetiapine Fumarate 300 mg 03/16/21 17:33 Quetiapine 100 Mg Tab FEEDTUBE BID MARCO ANTONIO Senna/Docusate Sodium 1 tab 03/08/21 22:00 03/16/21 09:10 Sennosides/Docusate Sodium 8.6/50 Mg Tab FEEDTUBE 1 tab BID MARCO ANTONIO Administration Simple Syrup 15 ml 03/08/21 13:40 Simple Syrup 15 Ml FEEDTUBE PRN PRN Hypoglycemia Simple Syrup 30 ml 03/08/21 13:40 Simple Syrup 15 Ml FEEDTUBE PRN PRN Hypoglycemia Sodium Bicarbonate 325 mg 03/08/21 13:40 Sodium Bicarbonate 325 Mg Tab FEEDTUBE PRN PRN For Clogged Feeding Tube Sodium Chloride 10 ml 03/08/21 10:00 03/16/21 09:10 Sodium Chloride 0.9% 10 Ml Flush Syringe IV 10 ml BID MARCO ANTONIO Administration Sodium Chloride 10 ml 03/07/21 22:57 Sodium Chloride 0.9% 10 Ml Flush Syringe IV PRN PRN LINE FLUSH Tamsulosin HCl 0.8 mg 03/16/21 17:33 Tamsulosin 0.4 Mg Cap PO QDAY [facility] Zinc Sulfate 220 mg 03/12/21 10:00 03/16/21 09:11 Zinc Sulfate 220 Mg Cap PO 220 mg QDAY MARCO ANTONIO Administration Nutrition/Malnutrition Assess - Dietary Evaluation Nutrition/Malnutrition Findings: Nutrition Notes Start: 03/08/21 12:27 Freq: Status: Active Protocol: Document 03/15/21 12:24 (Rec: 03/15/21 12:28 [id number]) Nutrition Notes Initial or Follow up Reassessment Current Diagnosis Sepsis,Respiratory Failure Other Pertinent Diagnosis Pneu, r/o COVID-19, pulmonary embolism Current Diet Vital AF at 50 ml/hr Labs/Tests Na 136 Bg 227 Pertinent Medications Propofol at 21.588 ml/hr ( provides 570 kcal) Decadron Height 5 ft Weight 102.8 kg [place] Body Weight (kg) 45.45 BMI 44.2 Weight Status Morbidly Obese Subjective/Other Information FU for TF tolerance. Pt now with BM. MD will increase insulin for BG. Percent of energy/protein needs met: 100%/79% Burn Absent Trauma Absent GI Symptoms None Current % PO Negligible Minimum of two criteria No Reduced [place] Strength Measurably Reduced (severe) #1 Nutrition Diagnosis Inadequate oral intake Diagnosis Progress(for reassessment Continues documentation) Is patient on ventilator? Yes Is Patient Ambulatory and/or Out of Bed No REE-([place]-confined to bed) 1904.676 Kcal/Kg value to use for calculation 14 Approximate Energy Requirements Using 1439 kcal/Kg Calculation Used for Recommendations Kcal/kg Additional Notes Pro needs up to 2.5g/kg IBW: 114g/day Fluid needs 1ml/kcal Nutrition Intervention Change Diet Order: Contiue Nutrition Support: Vital AF 1.2 at 50ml/hr with 80ml water flush q4h. Kcal 1,440 Protein (gm) 90 Carbohydrates (gm) 133 Fat (gm) 65 Fluid (mL) 937 Fiber (gm) 6 Goal #1 TF tolerance Goal #2 TF (at goal rate) to meet at least 75% energy and pro needs Anticipated Discharge Needs: Unable to determine at this time Follow-Up By: 03/17/21 Additional Comments FU for stable TF
[2021-03-17] MEDS: INSULIN LISPRO 100 UNIT/ML SUB-Q SCH ×4 (06:37→18:22)
--- NOTE | 2021-03-17 06:40 | XRay Report ---
CHEST 1 VIEW, 03/17/2021 519 AM CLINICAL INFORMATION/INDICATION: Pneumonia COMPARISON: Chest radiograph, 03/12/2021 at 5:32 AM FINDINGS: SUPPORT DEVICES: Endotracheal tube, esophagogastric tube and right-sided PICC remain in stable positi on. HEART: The cardiac silhouette is normal in size. LUNGS/PLEURA: Diffuse bilateral pulmonary opacities have not significantly changed. No pneumothorax i s visualized. ADDITIONAL FINDINGS: No additional acute findings. IMPRESSION: 1. Stable bilateral pulmonary opacities. Signer Name: Edwina Morin MD Signed: 03/17/2021 6:36 AM Workstation Name: [id number]
[2021-03-17] MEDS: fentaNYL DRIP Premix 2,000 MCG/100 ML BAG IV SCH ×2 (08:19→16:57)
[2021-03-17] MEDS: ASCORBIC ACID 500 MG TAB PO SCH ×2 (10:23→21:55)
[2021-03-17] MEDS: ZINC SULFATE 220 MG CAP PO SCH (10:23)
[2021-03-17] MEDS: CHOLECALCIFEROL (VIT D3) 5,000 UNIT TAB PO SCH (10:23)
[2021-03-17] MEDS: TAMSULOSIN 0.4 MG CAP PO SCH (10:23)
[2021-03-17] MEDS: FAMOTIDINE 20 MG TAB PO SCH ×2 (10:23→21:54)
[2021-03-17] MEDS: QUEtiapine 100 MG TAB FEEDTUBE SCH ×2 (10:23→22:40)
[2021-03-17] MEDS: SENNOSIDES/DOCUSATE SODIUM 8.6/50 MG TAB FEEDTUBE SCH ×2 (10:23→21:55)
[2021-03-17] MEDS: INSULIN GLARGINE 100 UNITS/ML SUB-Q SCH ×2 (10:24→21:59)
[2021-03-17] MEDS: dexAMETHasone 4 MG/ML VIAL IV SCH (10:24)
--- NOTE | 2021-03-17 11:04 | Progress Note ---
<KEITHRALPHDakota - Last Filed: 03/17/21 12:58> Assessment and Plan Assessment and plan: This is a 45-year-old female with no significant past medical history admitted to the hospital service with COVID-19 pneumonia, multiple peripheral bilateral lower lobe pulmonary emboli, septic shock, leukocytosis, hyponatremia, hyp ochloremia, metabolic acidosis, lactic acidosis. COVID-19 pneumonia Septic shock secondary to COVID-19 pneumonia Acute hypoxic respiratory failure Pulmonary embolism Left posterior tibial and peroneal veins DVT Leukocytosis Lactic acidosis (improved) Thrombocytopenia (improved-03/08 HIT NEGATIVE) Oropharyngeal dysphagia Urinary retention Hyperglycemia Acute metabolic encephalopathy Obesity -CCM, infectious disease consulted, appreciate recommendations -03/07 COVID-19 PCR positive -Droplet/aspiration precautions -Steroid therapy -Vitamin C, vitamin D, zinc -S/p remdesivir -S/p Actemra on 03/09/2021 -Antibiotic therapy -Continuous SPO2 monitoring -Wean mechanical ventilation as tolerated, VAP bundle -Pulmonary hygiene -Aspiration precautions -Propofol and fentanyl drip -Seroquel -Lovenox VTE -Bowel regimen -Flomax for urinary retention -Tube feedings -SSI, Accu-Cheks every 6, long-acting insulin -Trend COVID-19 inflammatory markers, CBC, BMP DVT/GI prophylaxis: Lovenox, PPI Disposition: ICU Lines: PICC pending, IJ TLC to be removed, calabrese The high probability of a clinically significant, sudden or life threatening deterioration of the [pulmonary] system(s) required my full and direct attention, intervention and personal management. The aggregate critical care time was [35] minutes. This time is in addition to time spent performing reported procedures but includes the following: [X] Data Review and interpretation [X] Patient assessment and monitoring of vital signs [X] Documentation [X] Medication orders and management History Interval history: This is a 45-year-old female with significant past medical history presented to emergency department on 03/07 complaining of cough, shortness of breath and diarrhea for 3 days prior to arrival. Upon arrival to emergency department patient was found to be in respiratory distress and initial oxygen saturations were said to be in the 50s and patient was placed on a nonrebreather with i mprovement of oxygen saturations to 7 days. Patient was subsequently intubated in the emergency department and upon review patient did not receive COVID-19 vaccination. Work-up in the emergency department revealed bilateral pulmonary infiltrates on CXR, leukocytosis of 31,000, hyperglycemia with a blood glucose of 301, elevated D-dimer greater than 10,000., CTA chest showed multiple peripheral bilateral lower lobe pulmonary emboli. Patient was hypotensive in the emergency department and fluid resuscitated and started on vasopressors. Patient will be admitted to the hospital service with COVID-19 PUI, septic shock secondary to pneumonia, pulmonary emboli and acute hypoxic respiratory failure. [facility] and infectious disease were consulted. Patient was started on heparin drip. 03/08: New issues: Thrombocytosis question if this is secondary to HIT. We will send out HIT panel. Monitor platelets. Continue heparin drip at this time. Await pulmonary and ID input. 03/09: Patient noted to have Covid positive pneumonia ID input is appreciated patient on dexamethasone for complete 10 days of therapy now started on remdesivir due to hypoxia also to complete 5 days therapy and Actemra a one- time. We will continue to monitor -Obtain q48-72h inflammatory markers - ferritin, Ddimer, CRP, LDH -Continue ceftriaxone 2 gm IV qday and azithromycin 500 mg PO qday for 5 days given elevated procal -Anticoagulation per hospital protocol -Proning as able I also requested a stat CBC to further evaluate thrombocytosis that was noted yesterday. I called maría elena Serafin David to update and got voicemail left a message. I also called James David but his phone is unable to accept messages at this time. 03/10: Possible ileus versus bowel obstruction. Will obtain KUB. Continue to hold tube feeds at this time. We will also obtain GI consult if no resolution. Also patient noted to have urinary retention we will proceed with placing a Calabrese catheter. She does follow commands some when off sedation but gets easily agitated. Continue ICU management at this point. 03/11: Blood sugar still elevated adjusted nighttime insulin for better coverage. KUB concerning for radiopaque object possible tablet. Was not present on 03 08. We will repeat a KUB in a.m. to see if resolution versus ileus. Continue current management for COVID-19. Continue heparin drip for noted pulmonary embolism. Platelets actually improved despite being on heparin doubt HIT. Patient still requires critical care monitoring. Altered mental status still present. 03/12: Worsening leukocytosis this could be secondary to steroids. We will give Lasix today in addition to empiric vitamins. Chest x-ray shows worsening opacities will monitor closely. Continue full mechanical ventilation and restraints for safety. 03/13: At the time my examination patient was on fentanyl at 3 mcg, heparin drip, pressure control ventilation with a rate of 20, pressure support of 20, FiO2 of 35% and PEEP of 12 and ECMO blood change patient ventilation to assist control tidal volume 450, rate of 14, PEEP of 10 in the morning. RN reported the patient did not have a BM since admission and [facility] ordered mag citrate x1. 03/14: SBT trial per [facility], leukocytosis and D-dimer is improving. Patient is hyperglycemic and long-acting insulin dosage has been increased. Patient has pseudohyponatremia today. Nurse reported that patient central line was not drawing back blood and Cathflo was ordered. No acute events reported overnight. 03/15: Patient is severely agitated and SBT trial was not attempted today. Patient remains hyperglycemic and insulin has been adjusted accordingly. [facility] will start the patient on Seroquel and attempt to wean propofol. Patient was hypotensive after sedation was increased and she received a 500 mL LR bolus today. We will obtain the ECG in the a.m. to assess QTc. RN to attempt to obtain PIV 03/16: Patient still has moments of severe agitation and her Seroquel will be increased today. Patient's urinary catheter was replaced due to retention patient has been started on Flomax. At the time my examination patient patient was sedated on propofol and fentanyl on AC. Patient still has leukocytosis and hyperglycemia. Insulin increased. We will obtain triglyceride level in the morning. [facility] opted to removal otis and replace CVL with PICC. 03/17: This morning the time of examination patient sedated on propofol and fentanyl assist control ventilation tidal volume 450, rate of 14, PEEP of 8 and 35% FiO2. EKG this a.m. showed a QTC of 407. Patient was able to follow commands at time of examination. Patient will be started on precedex and heparin gtt changed to lovenox. Lantus increased Hospitalist Physical - Constitutional Vitals: Temp Pulse Resp BP Pulse Ox 99.3 F 68 16 106/48 98 03/17/21 07:00 03/17/21 08:40 03/17/21 08:40 03/17/21 08:40 03/17/21 08:40 General appearance: Present: well-nourished, obese, other (Intubated and sedated) - EENT Eyes: Present: PERRL ENT: clear oral mucosa - Neck Neck: Present: normal ROM - Respiratory Respiratory effort: normal Respiratory: bilateral: diminished - Cardiovascular Rhythm: regular Heart Sounds: Present: S1 & S2 - Extremities Extremities: no ischemia, pulses intact, pulses symmetrical, normal temperature, normal color Peripheral Pulses: within normal limits - Abdominal General gastrointestinal: soft, non-tender, non-distended, normal bowel sounds - Integumentary Integumentary: Present: warm, dry - Psychiatric Psychiatric: other (follows commands) - Neurologic Neurologic: moves all extremities - Allied Health Allied health notes reviewed: nursing, RT, social work HEART Score - HEART Score Troponin: Troponin T 0.085 ng/mL (0.00-0.029) H 03/07/21 20:31 Results - Labs CBC & Chem 7: 03/16/21 07:43 03/16/21 07:43 Labs: Laboratory Last Values WBC 26.2 K/mm3 (4.5-11.0) H 03/16/21 07:43 RBC 3.72 M/mm3 (3.65-5.03) 03/16/21 07:43 Hgb 10.5 gm/dl (10.1-14.3) 03/16/21 07:43 Hct 31.8 % (30.3-42.9) 03/16/21 07:43 MCV 86 fl (79-97) 03/16/21 07:43 MCH 28 pg (28-32) 03/16/21 07:43 MCHC 33 % (30-34) 03/16/21 07:43 RDW 15.0 % (13.2-15.2) 03/16/21 07:43 Plt Count 319 K/mm3 (140-440) 03/16/21 07:43 Lymph % (Auto) [employer] Finisher 03/07/21 21:04 Moody % (Auto) [employer] Finisher 03/07/21 21:04 Eos % (Auto) [employer] Finisher 03/07/21 21:04 Baso % (Auto) [place] Finisher 03/07/21 21:04 Lymph # (Auto) [place] Finisher 03/07/21 21:04 Moody # (Auto) [employer] Finisher 03/07/21 21:04 Eos # (Auto) [place] Finisher 03/07/21 21:04 Baso # (Auto) [place] Finisher 03/07/21 21:04 Add Manual Diff Complete 03/10/21 01:12 Total Counted 100 03/10/21 01:12 Seg Neutrophils % Flatwork Finisher 03/10/21 01:12 Seg Neuts % (Manual) 89.0 % (40.0-70.0) H 03/10/21 01:12 Band Neutrophils % 11.0 % 03/09/21 12:10 Lymphocytes % (Manual) 6.0 % (13.4-35.0) L 03/10/21 01:12 Monocytes % (Manual) 5.0 % (0.0-7.3) 03/10/21 01:12 Metamyelocytes % 1.0 % 03/09/21 12:10 Myelocytes % 1.0 % 03/09/21 12:10 Nucleated RBC % Not Reportable 03/10/21 01:12 Seg Neutrophils # Flatwork Finisher 03/07/21 21:04 Seg Neutrophils # Man 20.1 K/mm3 (1.8-7.7) H 03/10/21 01:12 Band Neutrophils # 0.0 K/mm3 03/10/21 01:12 Lymphocytes # (Manual) 1.4 K/mm3 (1.2-5.4) 03/10/21 01:12 Abs React Lymphs (Man) 0.0 K/mm3 03/10/21 01:12 Monocytes # (Manual) 1.1 K/mm3 (0.0-0.8) H 03/10/21 01:12 Eosinophils # (Manual) 0.0 K/mm3 (0.0-0.4) 03/10/21 01:12 Basophils # (Manual) 0.0 K/mm3 (0.0-0.1) 03/10/21 01:12 Metamyelocytes # 0.0 K/mm3 03/10/21 01:12 Myelocytes # 0.0 K/mm3 03/10/21 01:12 Promyelocytes # 0.0 K/mm3 03/10/21 01:12 Blast Cells # 0.0 K/mm3 03/10/21 01:12 WBC Morphology Not Reportable 03/10/21 01:12 Hypersegmented Neuts Not Reportable 03/10/21 01:12 Hyposegmented Neuts Not Reportable 03/10/21 01:12 Hypogranular Neuts Not Reportable 03/10/21 01:12 Smudge Cells Not Reportable 03/10/21 01:12 Toxic Granulation Not Reportable 03/10/21 01:12 Toxic Vacuolation Not Reportable 03/10/21 01:12 Dohle Bodies Not Reportable 03/10/21 01:12 Pelger-Huet Anomaly Not Reportable 03/10/21 01:12 Jarrett Rods Not Reportable 03/10/21 01:12 Platelet Estimate Not Reportable 03/10/21 01:12 Clumped Platelets Not Reportable 03/10/21 01:12 Plt Clumps, EDTA Not Reportable 03/10/21 01:12 Large Platelets Not Reportable 03/10/21 01:12 Giant Platelets Not Reportable 03/10/21 01:12 Platelet Satelliting Not Reportable 03/10/21 01:12 Plt Morphology Comment Not Reportable 03/10/21 01:12 RBC Morphology Normal 03/10/21 01:12 Dimorphic RBCs Not Reportable 03/10/21 01:12 Polychromasia Not Reportable 03/10/21 01:12 Hypochromasia Not Reportable 03/10/21 01:12 Poikilocytosis Not Reportable 03/10/21 01:12 Anisocytosis Not Reportable 03/10/21 01:12 Microcytosis Not Reportable 03/10/21 01:12 Macrocytosis Not Reportable 03/10/21 01:12 Spherocytes Not Reportable 03/10/21 01:12 Pappenheimer Bodies Not Reportable 03/10/21 01:12 Sickle Cells Not Reportable 03/10/21 01:12 Target Cells Not Reportable 03/10/21 01:12 Tear Drop Cells Not Reportable 03/10/21 01:12 Ovalocytes Not Reportable 03/10/21 01:12 Helmet Cells Not Reportable 03/10/21 01:12 [place] Bodies Not Reportable 03/10/21 01:12 [place] Rings Not Reportable 03/10/21 01:12 Brant Cells Not Reportable 03/10/21 01:12 Bite Cells Not Reportable 03/10/21 01:12 Crenated Cell Not Reportable 03/10/21 01:12 Elliptocytes Not Reportable 03/10/21 01:12 Acanthocytes (Spur) Not Reportable 03/10/21 01:12 Rouleaux Not Reportable 03/10/21 01:12 Hemoglobin C Crystals Not Reportable 03/10/21 01:12 Schistocytes Not Reportable 03/10/21 01:12 Malaria parasites Not Reportable 03/10/21 01:12 Joss Bodies Not Reportable 03/10/21 01:12 Hem Pathologist Commnt No 03/10/21 01:12 PT 18.5 Sec. (12.2-14.9) H 03/08/21 07:55 INR 1.49 (0.87-1.13) H 03/08/21 07:55 APTT 113.5 Sec. (24.2-36.6) H* 03/08/21 07:55 D-Dimer 4124.04 ng/mlDDU (0-234) H 03/16/21 07:43 Heparin Anti-Xa Level 1.14 U.I./ml (0.3-0.7) H 03/17/21 00:37 Heparin Anti-Xa, Unfract Negative (Negative) 03/08/21 13:00 ABG pH 7.515 (7.320-7.450) H 03/15/21 03:10 POC ABG pCO2 35.4 mmHg (32.0-48.0) 03/15/21 03:10 ABG pCO2 39.5 mm Hg 03/07/21 Unknown POC ABG pO2 97.4 mmHg (83-108) 03/15/21 03:10 ABG pO2 62.6 mm Hg (80.0-90.0) L 03/07/21 Unknown POC ABG HCO3 27.9 03/15/21 03:10 ABG HCO3 20.7 mmol/L (20.0-26.0) 03/07/21 Unknown ABG O2 Saturation 97.7 (0-100) 03/15/21 03:10 ABG O2 Content 15.1 (0.0-44) 03/07/21 Unknown POC ABG Base Excess 4.9 03/15/21 03:10 ABG Base Excess -4.7 mmol/L (-2.0-3.0) L 03/07/21 Unknown ABG Hemoglobin 11.0 (12.0-17.5) L 03/15/21 03:10 ABG Oxyhemoglobin 96.9 (94-98) 03/15/21 03:10 ABG Carboxyhemoglobin 1.4 % (0.0-5.0) 03/07/21 Unknown ABG Methemoglobin 0.3 (0.0-1.5) 03/15/21 03:10 ABG Sodium 131.4 mmol/L (136.0-145.0) L 03/15/21 03:10 ABG Potassium 3.5 mmol/L (3.40-4.50) 03/15/21 03:10 ABG Chloride 95.0 mmol/L (98-107) L 03/15/21 03:10 ABG Glucose 239 mg/dL (65-95) H 03/15/21 03:10 Oxyhemoglobin 87.3 % (95.0-99.0) L 03/07/21 Unknown Carboxyhemoglobin 0.5 (0.5-1.5) 03/15/21 03:10 FiO2 100 % 03/07/21 Unknown FiO2 % 35.0 03/15/21 03:10 Sodium 139 mmol/L (137-145) 03/16/21 07:43 Potassium 4.3 mmol/L (3.6-5.0) 03/16/21 07:43 Chloride 100.0 mmol/L (98-107) 03/16/21 07:43 Carbon Dioxide 32 mmol/L (22-30) H 03/16/21 07:43 Anion Gap 11 mmol/L 03/16/21 07:43 BUN 17 mg/dL (7-17) 03/16/21 07:43 Creatinine 0.4 mg/dL (0.6-1.2) L 03/16/21 07:43 Estimated GFR > 60 ml/min 03/16/21 07:43 BUN/Creatinine Ratio 43 % 03/16/21 07:43 Glucose 230 mg/dL (65-100) H 03/16/21 07:43 POC Glucose 170 mg/dL (70-105) H 03/17/21 05:24 Lactic Acid 1.90 mmol/L (0.7-2.0) 03/10/21 01:12 Calcium 8.8 mg/dL (8.4-10.2) 03/16/21 07:43 Ferritin 151.5 ng/mL (10.0-200.0) 03/16/21 07:43 Total Bilirubin 0.30 mg/dL (0.1-1.2) 03/11/21 04:40 AST 19 units/L (5-40) 03/11/21 04:40 ALT 12 units/L (7-56) 03/11/21 04:40 Alkaline Phosphatase 107 units/L (35-129) 03/11/21 04:40 Lactate Dehydrogenase 662 units/L (91-180) H 03/16/21 07:43 Troponin T 0.085 ng/mL (0.00-0.029) H 03/07/21 20:31 C-Reactive Protein 0.60 mg/dL (0.00-1.30) 03/16/21 07:43 Total Protein 6.1 g/dL (6.3-8.2) L 03/11/21 04:40 Albumin 3.2 g/dL (3.9-5) L 03/11/21 04:40 Albumin/Globulin Ratio 1.1 % 03/11/21 04:40 Triglycerides 136 mg/dL (2-149) 03/17/21 02:00 Cholesterol 141 mg/dL (50-199) 03/07/21 20:31 LDL Cholesterol Direct 72 mg/dL (50-130) 03/07/21 20:31 HDL Cholesterol 34 mg/dL (40-59) L 03/07/21 20:31 Cholesterol/HDL Ratio 4.14 % 03/07/21 20:31 Serotonin Release Assay See scanned result 03/08/21 13:00 Procalcitonin 0.20 ng/mL (<0.15) 03/13/21 08:08 HCG, Qual Negative (Negative) 03/07/21 22:48 Arterial Blood Glucose 239 mg/dL (65-95) H 03/15/21 03:10 Arterial Blood Ionized Calcium 4.5 mg/dL (4.6-5.3) L 03/15/21 03:10 Urine Color Yellow (Yellow) 03/08/21 05:51 Urine Turbidity Clear (Clear) 03/08/21 05:51 Urine pH 6.0 (5.0-7.0) 03/08/21 05:51 Ur Specific [place] > 1.050 (1.003-1.030) H 03/08/21 05:51 Urine Protein 100 mg/dl mg/dL (Negative) 03/08/21 05:51 Urine Glucose (UA) Neg mg/dL (Negative) 03/08/21 05:51 Urine Ketones Neg mg/dL (Negative) 03/08/21 05:51 Urine Blood Neg (Negative) 03/08/21 05:51 Urine Nitrite Neg (Negative) 03/08/21 05:51 Urine Bilirubin Neg (Negative) 03/08/21 05:51 Urine Urobilinogen 4.0 mg/dL (<2.0) 03/08/21 05:51 Ur Leukocyte Esterase Neg (Negative) 03/08/21 05:51 Urine WBC (Auto) 5.0 /HPF (0.0-6.0) 03/08/21 05:51 Urine RBC (Auto) 5.0 /HPF (0.0-6.0) 03/08/21 05:51 U Epithel Cells (Auto) < 1.0 /HPF (0-13.0) 03/08/21 05:51 Urine Bacteria (Auto) 1+ /HPF (Negative) 03/08/21 05:51 Urine Mucus Few /HPF 03/08/21 05:51 Heparin-induced Plt Ab Negative (Negative) 03/08/21 13:00 UF Heparin High Dose 0 % Release 03/08/21 13:00 JESSY UFH Low Dose 0.1 0 % Release 03/08/21 13:00 JESSY UFH Low Dose 0.5 0 % Release 03/08/21 13:00 Coronavirus (PCR) Positive (Negative) A 03/07/21 Unknown Calabrese/IV: Voiding Method Indwelling Catheter Active Medications - Current Medications Current Medications: Generic Name Dose Route Start Last Admin Trade Name Freq PRN Reason Stop Dose Admin Acetaminophen 650 mg 03/10/21 00:30 Acetaminophen 650 Mg Rect Supp PA Q4H PRN Pain, Mild (1-3) Lipase/Protease/Amylase 1 each 03/08/21 13:40 Lipase 10,500/Protease 25,000/Amylase 43,750 (Units) Dr Coreas FEEDTUBE PRN PRN For Clogged Feeding Tube Ascorbic Acid 1,000 mg 03/12/21 10:00 03/17/21 10:23 Ascorbic Acid 500 Mg Tab PO 1,000 mg BID MARCO ANTONIO Administration Cholecalciferol 5,000 unit 03/12/21 10:00 03/17/21 10:23 Cholecalciferol (Vit D3) 5,000 Unit Tab PO 5,000 unit DAILY MARCO ANTONIO Administration Dextrose 50 ml 03/07/21 22:57 Dextrose 50% In Water (25gm) 50 Ml Syringe IV Q30MIN PRN Hypoglycemia Protocol Famotidine 20 mg 03/13/21 10:00 03/17/21 10:23 Famotidine 20 Mg Tab PO 20 mg BID MARCO ANTONIO Administration Fentanyl 50 mcg 03/07/21 21:20 03/15/21 15:18 Fentanyl 100 Mcg/2 Ml Inj IV 50 mcg Q10MIN PRN Administration ANALGESIA Heparin Sodium (Porcine) 5,000 unit 03/16/21 12:00 Heparin 10,000 Units/10 Ml Vial IV Q6H PRN Anti-Xa Assay < 0.1 units/ml Hydrophilic Ointment 1 applic 03/08/21 12:42 Lip Therapy Vaseline TP Q2HR PRN Dry Lips Propofol 1,000 mg in 100 mls @ 3.084 mls/hr 03/07/21 21:00 03/17/21 04:30 Diprivan 10 Mg/Ml IV 25 mcg/kg/min TITR MARCO ANTONIO 15.42 mls/hr Administration Protocol 5 MCG/KG/MIN Fentanyl Citrate 2,000 mcg in 100 mls @ 5.14 mls/hr 03/07/21 22:00 03/17/21 08:19 Fentanyl Drip Premix IV 2 mcg/kg/hr TITR MARCO ANTONIO 10.28 mls/hr Administration Protocol 1 MCG/KG/HR Norepinephrine 4 mg in 250 mls @ 7.5 mls/hr 03/07/21 23:45 03/08/21 08:15 Levophed Drip 4 Mg/Ns 250 Ml IV 0 mcg/min TITR MARCO ANTONIO 0 mls/hr Titration Protocol 2 MCG/MIN Heparin Sodium/Sodium Chloride 25,000 unit in 500 mls @ 30 mls/hr 03/08/21 04:00 03/17/21 04:30 Heparin/ 0.45% Nacl-25,000 Unit/500 Ml IV 1,700 units/hr TITR MARCO ANTONIO 34 mls/hr Titration Protocol 1,500 UNITS/HR Insulin Glargine 40 units 03/15/21 22:00 03/16/21 21:34 Insulin Glargine 100 Units/Ml SUB-Q 40 units QHS MARCO ANTONIO Administration Insulin Glargine 25 units 03/16/21 10:00 03/17/21 10:24 Insulin Glargine 100 Units/Ml SUB-Q 25 units DAILY MARCO ANTONIO Administration Insulin Human Lispro 0 unit 03/08/21 12:00 03/17/21 06:37 Insulin Lispro 100 Unit/Ml SUB-Q 3 unit Q6HR MARCO ANTONIO Administration Protocol Magnesium Hydroxide 30 ml 03/07/21 22:57 03/13/21 10:13 Magnesium Hydroxide (Mom) Oral Liqd Udc PO 30 ml Q4H PRN Administration Constipation Morphine Sulfate 2 mg 03/07/21 22:57 03/09/21 21:29 Morphine 2 Mg/1 Ml Inj IV 2 mg Q4H PRN Administration Pain, Moderate (4-6) Multi-Ingred Cream/Lotion/Oil/Oint 1 applic 03/08/21 12:42 Mineral Oil/Petrolatum, White Ophth Oint 3.5 Gm OU Q4HR PRN Dry Eye(s) Ondansetron HCl 4 mg 03/07/21 22:57 Ondansetron 4 Mg/2 Ml Inj IV Q8H PRN Nausea And Vomiting Quetiapine Fumarate 300 mg 03/16/21 17:33 03/17/21 10:23 Quetiapine 100 Mg Tab FEEDTUBE 300 mg BID MARCO ANTONIO Administration Senna/Docusate Sodium 1 tab 03/08/21 22:00 03/17/21 10:23 Sennosides/Docusate Sodium 8.6/50 Mg Tab FEEDTUBE 1 tab BID MARCO ANTONIO Administration Simple Syrup 15 ml 03/08/21 13:40 Simple Syrup 15 Ml FEEDTUBE PRN PRN Hypoglycemia Simple Syrup 30 ml 03/08/21 13:40 Simple Syrup 15 Ml FEEDTUBE PRN PRN Hypoglycemia Sodium Bicarbonate 325 mg 03/08/21 13:40 Sodium Bicarbonate 325 Mg Tab FEEDTUBE PRN PRN For Clogged Feeding Tube Sodium Chloride 10 ml 03/08/21 10:00 03/17/21 10:25 Sodium Chloride 0.9% 10 Ml Flush Syringe IV 10 ml BID MARCO ANTONIO Administration Sodium Chloride 10 ml 03/07/21 22:57 Sodium Chloride 0.9% 10 Ml Flush Syringe IV PRN PRN LINE FLUSH Tamsulosin HCl 0.8 mg 03/16/21 17:33 03/17/21 10:23 Tamsulosin 0.4 Mg Cap PO 0.8 mg QDAY MARCO ANTONIO Administration Zinc Sulfate 220 mg 03/12/21 10:00 03/17/21 10:23 Zinc Sulfate 220 Mg Cap PO 220 mg QDAY MARCO ANTONIO Administration Nutrition/Malnutrition Assess - Dietary Evaluation Nutrition/Malnutrition Findings: Nutrition Notes Start: 03/08/21 12:27 Freq: Status: Active Protocol: Document 03/15/21 12:24 (Rec: 03/15/21 12:28 [email or web address]) Nutrition Notes Initial or Follow up Reassessment Current Diagnosis Sepsis,Respiratory Failure Other Pertinent Diagnosis Pneu, r/o COVID-19, pulmonary embolism Current Diet Vital AF at 50 ml/hr Labs/Tests Na 136 Bg 227 Pertinent Medications Propofol at 21.588 ml/hr ( provides 570 kcal) Decadron Height 5 ft Weight 102.8 kg [place] Body Weight (kg) 45.45 BMI 44.2 Weight Status Morbidly Obese Subjective/Other Information FU for TF tolerance. Pt now with BM. MD will increase insulin for BG. Percent of energy/protein needs met: 100%/79% Burn Absent Trauma Absent GI Symptoms None Current % PO Negligible Minimum of two criteria No Reduced [employer] Strength Measurably Reduced (severe) #1 Nutrition Diagnosis Inadequate oral intake Diagnosis Progress(for reassessment Continues documentation) Is patient on ventilator? Yes Is Patient Ambulatory and/or Out of Bed No REE-([facility]-confined to bed) 1904.676 Kcal/Kg value to use for calculation 14 Approximate Energy Requirements Using 1439 kcal/Kg Calculation Used for Recommendations Kcal/kg Additional Notes Pro needs up to 2.5g/kg IBW: 114g/day Fluid needs 1ml/kcal Nutrition Intervention Change Diet Order: Contiue Nutrition Support: Vital AF 1.2 at 50ml/hr with 80ml water flush q4h. Kcal 1,440 Protein (gm) 90 Carbohydrates (gm) 133 Fat (gm) 65 Fluid (mL) 937 Fiber (gm) 6 Goal #1 TF tolerance Goal #2 TF (at goal rate) to meet at least 75% energy and pro needs Anticipated Discharge Needs: Unable to determine at this time Follow-Up By: 03/17/21 Additional Comments FU for stable TF <GIACOMO ROSE - Last Filed: 03/17/21 15:23> Assessment and Plan Assessment and plan: Agree with assessment and plan as outlined by nurse practitioner. I personally examined the patient, patient continues to be intubated and sedated. Heparin drip discontinued, patient placed on Lovenox. Patient had a PICC line placed. Hospitalist Physical - Constitutional Vitals: Temp Pulse Resp BP Pulse Ox 98.1 F 74 27 H 153/78 98 03/17/21 12:00 03/17/21 14:40 03/17/21 14:40 03/17/21 14:40 03/17/21 14:00 HEART Score - HEART Score Troponin: Troponin T 0.085 ng/mL (0.00-0.029) H 03/07/21 20:31 Results - Labs CBC & Chem 7: 03/16/21 07:43 03/16/21 07:43 Labs: Laboratory Last Values WBC 26.2 K/mm3 (4.5-11.0) H 03/16/21 07:43 RBC 3.72 M/mm3 (3.65-5.03) 03/16/21 07:43 Hgb 10.5 gm/dl (10.1-14.3) 03/16/21 07:43 Hct 31.8 % (30.3-42.9) 03/16/21 07:43 MCV 86 fl (79-97) 03/16/21 07:43 MCH 28 pg (28-32) 03/16/21 07:43 MCHC 33 % (30-34) 03/16/21 07:43 RDW 15.0 % (13.2-15.2) 03/16/21 07:43 Plt Count 319 K/mm3 (140-440) 03/16/21 07:43 Lymph % (Auto) [employer] Finisher 03/07/21 21:04 Moody % (Auto) [place] Finisher 03/07/21 21:04 Eos % (Auto) [place] Finisher 03/07/21 21:04 Baso % (Auto) [place] Finisher 03/07/21 21:04 Lymph # (Auto) [place] Finisher 03/07/21 21:04 Moody # (Auto) [employer] Finisher 03/07/21 21:04 Eos # (Auto) [place] Finisher 03/07/21 21:04 Baso # (Auto) [place] Finisher 03/07/21 21:04 Add Manual Diff Complete 03/10/21 01:12 Total Counted 100 03/10/21 01:12 Seg Neutrophils % [place] Finisher 03/10/21 01:12 Seg Neuts % (Manual) 89.0 % (40.0-70.0) H 03/10/21 01:12 Band Neutrophils % 11.0 % 03/09/21 12:10 Lymphocytes % (Manual) 6.0 % (13.4-35.0) L 03/10/21 01:12 Monocytes % (Manual) 5.0 % (0.0-7.3) 03/10/21 01:12 Metamyelocytes % 1.0 % 03/09/21 12:10 Myelocytes % 1.0 % 03/09/21 12:10 Nucleated RBC % Not Reportable 03/10/21 01:12 Seg Neutrophils # [place] Finisher 03/07/21 21:04 Seg Neutrophils # Man 20.1 K/mm3 (1.8-7.7) H 03/10/21 01:12 Band Neutrophils # 0.0 K/mm3 03/10/21 01:12 Lymphocytes # (Manual) 1.4 K/mm3 (1.2-5.4) 03/10/21 01:12 Abs React Lymphs (Man) 0.0 K/mm3 03/10/21 01:12 Monocytes # (Manual) 1.1 K/mm3 (0.0-0.8) H 03/10/21 01:12 Eosinophils # (Manual) 0.0 K/mm3 (0.0-0.4) 03/10/21 01:12 Basophils # (Manual) 0.0 K/mm3 (0.0-0.1) 03/10/21 01:12 Metamyelocytes # 0.0 K/mm3 03/10/21 01:12 Myelocytes # 0.0 K/mm3 03/10/21 01:12 Promyelocytes # 0.0 K/mm3 03/10/21 01:12 Blast Cells # 0.0 K/mm3 03/10/21 01:12 WBC Morphology Not Reportable 03/10/21 01:12 Hypersegmented Neuts Not Reportable 03/10/21 01:12 Hyposegmented Neuts Not Reportable 03/10/21 01:12 Hypogranular Neuts Not Reportable 03/10/21 01:12 Smudge Cells Not Reportable 03/10/21 01:12 Toxic Granulation Not Reportable 03/10/21 01:12 Toxic Vacuolation Not Reportable 03/10/21 01:12 Dohle Bodies Not Reportable 03/10/21 01:12 Pelger-Huet Anomaly Not Reportable 03/10/21 01:12 Jarrett Rods Not Reportable 03/10/21 01:12 Platelet Estimate Not Reportable 03/10/21 01:12 Clumped Platelets Not Reportable 03/10/21 01:12 Plt Clumps, EDTA Not Reportable 03/10/21 01:12 Large Platelets Not Reportable 03/10/21 01:12 Giant Platelets Not Reportable 03/10/21 01:12 Platelet Satelliting Not Reportable 03/10/21 01:12 Plt Morphology Comment Not Reportable 03/10/21 01:12 RBC Morphology Normal 03/10/21 01:12 Dimorphic RBCs Not Reportable 03/10/21 01:12 Polychromasia Not Reportable 03/10/21 01:12 Hypochromasia Not Reportable 03/10/21 01:12 Poikilocytosis Not Reportable 03/10/21 01:12 Anisocytosis Not Reportable 03/10/21 01:12 Microcytosis Not Reportable 03/10/21 01:12 Macrocytosis Not Reportable 03/10/21 01:12 Spherocytes Not Reportable 03/10/21 01:12 Pappenheimer Bodies Not Reportable 03/10/21 01:12 Sickle Cells Not Reportable 03/10/21 01:12 Target Cells Not Reportable 03/10/21 01:12 Tear Drop Cells Not Reportable 03/10/21 01:12 Ovalocytes Not Reportable 03/10/21 01:12 Helmet Cells Not Reportable 03/10/21 01:12 [place] Bodies Not Reportable 03/10/21 01:12 [place] Rings Not Reportable 03/10/21 01:12 [place] Cells Not Reportable 03/10/21 01:12 Bite Cells Not Reportable 03/10/21 01:12 Crenated Cell Not Reportable 03/10/21 01:12 Elliptocytes Not Reportable 03/10/21 01:12 Acanthocytes (Spur) Not Reportable 03/10/21 01:12 Rouleaux Not Reportable 03/10/21 01:12 Hemoglobin C Crystals Not Reportable 03/10/21 01:12 Schistocytes Not Reportable 03/10/21 01:12 Malaria parasites Not Reportable 03/10/21 01:12 Joss Bodies Not Reportable 03/10/21 01:12 Hem Pathologist Commnt No 03/10/21 01:12 PT 18.5 Sec. (12.2-14.9) H 03/08/21 07:55 INR 1.49 (0.87-1.13) H 03/08/21 07:55 APTT 113.5 Sec. (24.2-36.6) H* 03/08/21 07:55 D-Dimer 4124.04 ng/mlDDU (0-234) H 03/16/21 07:43 Heparin Anti-Xa Level 1.14 U.I./ml (0.3-0.7) H 03/17/21 00:37 Heparin Anti-Xa, Unfract Negative (Negative) 03/08/21 13:00 ABG pH 7.515 (7.320-7.450) H 03/15/21 03:10 POC ABG pCO2 35.4 mmHg (32.0-48.0) 03/15/21 03:10 ABG pCO2 39.5 mm Hg 03/07/21 Unknown POC ABG pO2 97.4 mmHg (83-108) 03/15/21 03:10 ABG pO2 62.6 mm Hg (80.0-90.0) L 03/07/21 Unknown POC ABG HCO3 27.9 03/15/21 03:10 ABG HCO3 20.7 mmol/L (20.0-26.0) 03/07/21 Unknown ABG O2 Saturation 97.7 (0-100) 03/15/21 03:10 ABG O2 Content 15.1 (0.0-44) 03/07/21 Unknown POC ABG Base Excess 4.9 03/15/21 03:10 ABG Base Excess -4.7 mmol/L (-2.0-3.0) L 03/07/21 Unknown ABG Hemoglobin 11.0 (12.0-17.5) L 03/15/21 03:10 ABG Oxyhemoglobin 96.9 (94-98) 03/15/21 03:10 ABG Carboxyhemoglobin 1.4 % (0.0-5.0) 03/07/21 Unknown ABG Methemoglobin 0.3 (0.0-1.5) 03/15/21 03:10 ABG Sodium 131.4 mmol/L (136.0-145.0) L 03/15/21 03:10 ABG Potassium 3.5 mmol/L (3.40-4.50) 03/15/21 03:10 ABG Chloride 95.0 mmol/L (98-107) L 03/15/21 03:10 ABG Glucose 239 mg/dL (65-95) H 03/15/21 03:10 Oxyhemoglobin 87.3 % (95.0-99.0) L 03/07/21 Unknown Carboxyhemoglobin 0.5 (0.5-1.5) 03/15/21 03:10 FiO2 100 % 03/07/21 Unknown FiO2 % 35.0 03/15/21 03:10 Sodium 139 mmol/L (137-145) 03/16/21 07:43 Potassium 4.3 mmol/L (3.6-5.0) 03/16/21 07:43 Chloride 100.0 mmol/L (98-107) 03/16/21 07:43 Carbon Dioxide 32 mmol/L (22-30) H 03/16/21 07:43 Anion Gap 11 mmol/L 03/16/21 07:43 BUN 17 mg/dL (7-17) 03/16/21 07:43 Creatinine 0.4 mg/dL (0.6-1.2) L 03/16/21 07:43 Estimated GFR > 60 ml/min 03/16/21 07:43 BUN/Creatinine Ratio 43 % 03/16/21 07:43 Glucose 230 mg/dL (65-100) H 03/16/21 07:43 POC Glucose 211 mg/dL (70-105) H 03/17/21 11:29 Lactic Acid 1.90 mmol/L (0.7-2.0) 03/10/21 01:12 Calcium 8.8 mg/dL (8.4-10.2) 03/16/21 07:43 Ferritin 151.5 ng/mL (10.0-200.0) 03/16/21 07:43 Total Bilirubin 0.30 mg/dL (0.1-1.2) 03/11/21 04:40 AST 19 units/L (5-40) 03/11/21 04:40 ALT 12 units/L (7-56) 03/11/21 04:40 Alkaline Phosphatase 107 units/L (35-129) 03/11/21 04:40 Lactate Dehydrogenase 662 units/L (91-180) H 03/16/21 07:43 Troponin T 0.085 ng/mL (0.00-0.029) H 03/07/21 20:31 C-Reactive Protein 0.60 mg/dL (0.00-1.30) 03/16/21 07:43 Total Protein 6.1 g/dL (6.3-8.2) L 03/11/21 04:40 Albumin 3.2 g/dL (3.9-5) L 03/11/21 04:40 Albumin/Globulin Ratio 1.1 % 03/11/21 04:40 Triglycerides 136 mg/dL (2-149) 03/17/21 02:00 Cholesterol 141 mg/dL (50-199) 03/07/21 20:31 LDL Cholesterol Direct 72 mg/dL (50-130) 03/07/21 20:31 HDL Cholesterol 34 mg/dL (40-59) L 03/07/21 20:31 Cholesterol/HDL Ratio 4.14 % 03/07/21 20:31 Serotonin Release Assay See scanned result 03/08/21 13:00 Procalcitonin 0.20 ng/mL (<0.15) 03/13/21 08:08 HCG, Qual Negative (Negative) 03/07/21 22:48 Arterial Blood Glucose 239 mg/dL (65-95) H 03/15/21 03:10 Arterial Blood Ionized Calcium 4.5 mg/dL (4.6-5.3) L 03/15/21 03:10 Urine Color Yellow (Yellow) 03/08/21 05:51 Urine Turbidity Clear (Clear) 03/08/21 05:51 Urine pH 6.0 (5.0-7.0) 03/08/21 05:51 Ur Specific [place] > 1.050 (1.003-1.030) H 03/08/21 05:51 Urine Protein 100 mg/dl mg/dL (Negative) 03/08/21 05:51 Urine Glucose (UA) Neg mg/dL (Negative) 03/08/21 05:51 Urine Ketones Neg mg/dL (Negative) 03/08/21 05:51 Urine Blood Neg (Negative) 03/08/21 05:51 Urine Nitrite Neg (Negative) 03/08/21 05:51 Urine Bilirubin Neg (Negative) 03/08/21 05:51 Urine Urobilinogen 4.0 mg/dL (<2.0) 03/08/21 05:51 Ur Leukocyte Esterase Neg (Negative) 03/08/21 05:51 Urine WBC (Auto) 5.0 /HPF (0.0-6.0) 03/08/21 05:51 Urine RBC (Auto) 5.0 /HPF (0.0-6.0) 03/08/21 05:51 U Epithel Cells (Auto) < 1.0 /HPF (0-13.0) 03/08/21 05:51 Urine Bacteria (Auto) 1+ /HPF (Negative) 03/08/21 05:51 Urine Mucus Few /HPF 03/08/21 05:51 Heparin-induced Plt Ab Negative (Negative) 03/08/21 13:00 UF Heparin High Dose 0 % Release 03/08/21 13:00 JESSY UFH Low Dose 0.1 0 % Release 03/08/21 13:00 JESSY UFH Low Dose 0.5 0 % Release 03/08/21 13:00 Coronavirus (PCR) Positive (Negative) A 03/07/21 Unknown [place]/IV: Voiding Method Indwelling Catheter Active Medications - Current Medications Current Medications: Generic Name Dose Route Start Last Admin Trade Name Freq PRN Reason Stop Dose Admin Acetaminophen 650 mg 03/10/21 00:30 Acetaminophen 650 Mg Rect Supp PA Q4H PRN Pain, Mild (1-3) Lipase/Protease/Amylase 1 each 03/08/21 13:40 Lipase 10,500/Protease 25,000/Amylase 43,750 (Units) Dr Coreas FEEDTUBE PRN PRN For Clogged Feeding Tube Ascorbic Acid 1,000 mg 03/12/21 10:00 03/17/21 10:23 Ascorbic Acid 500 Mg Tab PO 1,000 mg BID MARCO ANTONIO Administration Cholecalciferol 5,000 unit 03/12/21 10:00 03/17/21 10:23 Cholecalciferol (Vit D3) 5,000 Unit Tab PO 5,000 unit DAILY MARCO ANTONIO Administration Dextrose 50 ml 03/07/21 22:57 Dextrose 50% In Water (25gm) 50 Ml Syringe IV Q30MIN PRN Hypoglycemia Protocol Enoxaparin Sodium 100 mg 03/17/21 14:00 Enoxaparin 100 Mg/1 Ml Inj SUB-Q Q12HR MARCO ANTONIO Famotidine 20 mg 03/13/21 10:00 03/17/21 10:23 Famotidine 20 Mg Tab PO 20 mg BID MARCO ANTONIO Administration Fentanyl 50 mcg 03/07/21 21:20 03/17/21 12:16 Fentanyl 100 Mcg/2 Ml Inj IV 50 mcg Q10MIN PRN Administration ANALGESIA Hydrophilic Ointment 1 applic 03/08/21 12:42 Lip Therapy Vaseline TP Q2HR PRN Dry Lips Propofol 1,000 mg in 100 mls @ 3.084 mls/hr 03/07/21 21:00 03/17/21 12:07 Diprivan 10 Mg/Ml IV 25 mcg/kg/min TITR MARCO ANTONIO 15.42 mls/hr Administration Protocol 5 MCG/KG/MIN Fentanyl Citrate 2,000 mcg in 100 mls @ 5.14 mls/hr 03/07/21 22:00 03/17/21 08:19 Fentanyl Drip Premix IV 2 mcg/kg/hr TITR MARCO ANTONIO 10.28 mls/hr Administration Protocol 1 MCG/KG/HR Norepinephrine 4 mg in 250 mls @ 7.5 mls/hr 03/07/21 23:45 03/08/21 08:15 Levophed Drip 4 Mg/Ns 250 Ml IV 0 mcg/min TITR MARCO ANTONIO 0 mls/hr Titration Protocol 2 MCG/MIN Dexmedetomidine HCl 400 mcg/ 104 mls @ 5.33 mls/hr 03/17/21 12:00 03/17/21 14:40 Sodium Chloride IV 0.2 mcg/kg/hr TITRATE MARCO ANTONIO 5.33 mls/hr Administration Protocol 0.2 MCG/KG/HR Insulin Glargine 40 units 03/15/21 22:00 03/16/21 21:34 Insulin Glargine 100 Units/Ml SUB-Q 40 units QHS MARCO ANTONIO Administration Insulin Glargine 25 units 03/16/21 10:00 03/17/21 10:24 Insulin Glargine 100 Units/Ml SUB-Q 25 units DAILY MARCO ANTONIO Administration Insulin Human Lispro 0 unit 03/08/21 12:00 03/17/21 12:14 Insulin Lispro 100 Unit/Ml SUB-Q 4 unit Q6HR MARCO ANTONIO Administration Protocol Magnesium Hydroxide 30 ml 03/07/21 22:57 03/13/21 10:13 Magnesium Hydroxide (Mom) Oral Liqd Udc PO 30 ml Q4H PRN Administration Constipation Morphine Sulfate 2 mg 03/07/21 22:57 03/09/21 21:29 Morphine 2 Mg/1 Ml Inj IV 2 mg Q4H PRN Administration Pain, Moderate (4-6) Multi-Ingred Cream/Lotion/Oil/Oint 1 applic 03/08/21 12:42 Mineral Oil/Petrolatum, White Ophth Oint 3.5 Gm OU Q4HR PRN Dry Eye(s) Ondansetron HCl 4 mg 03/07/21 22:57 Ondansetron 4 Mg/2 Ml Inj IV Q8H PRN Nausea And Vomiting Quetiapine Fumarate 300 mg 03/16/21 17:33 03/17/21 10:23 Quetiapine 100 Mg Tab FEEDTUBE 300 mg BID MARCO ANTONIO Administration Senna/Docusate Sodium 1 tab 03/08/21 22:00 03/17/21 10:23 Sennosides/Docusate Sodium 8.6/50 Mg Tab FEEDTUBE 1 tab BID MARCO ANTONIO Administration Simple Syrup 15 ml 03/08/21 13:40 Simple Syrup 15 Ml FEEDTUBE PRN PRN Hypoglycemia Simple Syrup 30 ml 03/08/21 13:40 Simple Syrup 15 Ml FEEDTUBE PRN PRN Hypoglycemia Sodium Bicarbonate 325 mg 03/08/21 13:40 Sodium Bicarbonate 325 Mg Tab FEEDTUBE PRN PRN For Clogged Feeding Tube Sodium Chloride 10 ml 03/08/21 10:00 03/17/21 10:25 Sodium Chloride 0.9% 10 Ml Flush Syringe IV 10 ml BID MARCO ANTONIO Administration Sodium Chloride 10 ml 03/07/21 22:57 Sodium Chloride 0.9% 10 Ml Flush Syringe IV PRN PRN LINE FLUSH Tamsulosin HCl 0.8 mg 03/16/21 17:33 03/17/21 10:23 Tamsulosin 0.4 Mg Cap PO 0.8 mg QDAY MARCO ANTONIO Administration Zinc Sulfate 220 mg 03/12/21 10:00 03/17/21 10:23 Zinc Sulfate 220 Mg Cap PO 220 mg QDAY MARCO ANTONIO Administration Nutrition/Malnutrition Assess - Dietary Evaluation Nutrition/Malnutrition Findings: Nutrition Notes Start: 03/08/21 12:27 Freq: Status: Active Protocol: Document 03/17/21 11:02 CW (Rec: 03/17/21 11:10 CW [id number]) Nutrition Notes Initial or Follow up Reassessment Current Diagnosis Sepsis,Respiratory Failure Other Pertinent Diagnosis Pneu, r/o COVID-19, pulmonary embolism Current Diet Vital AF at 50 ml/hr Labs/Tests 03/16 BG 230 Pertinent Medications Propofol at 15.42ml/hr ( provides 407 kcal) Decadron Lantus Height 5 ft Weight 102.5 kg [place] Body Weight (kg) 45.45 BMI 44.1 Weight Status Morbidly Obese Subjective/Other Information F/U for TF tolerance. TF running at goal. No reports of TF intolerance. Appears taht propofol is being weaned down. Will adjust TF accordingly next assessment if propofol continues at high rate Percent of energy/protein needs met: 100%/79% Burn Absent Trauma Absent GI Symptoms None Current % PO Negligible Minimum of two criteria Yes Fluid Accumulation Mild (non-severe) #1 Nutrition Diagnosis Inadequate oral intake Diagnosis Progress(for reassessment Continues documentation) Is patient on ventilator? Yes Is Patient Ambulatory and/or Out of Bed No REE-([facility]-confined to bed) 1901.088 Kcal/Kg value to use for calculation 14 Approximate Energy Requirements Using 1435 kcal/Kg Calculation Used for Recommendations Kcal/kg Additional Notes Pro needs up to 2.5g/kg IBW: 114g/day Fluid needs 1ml/kcal Nutrition Intervention Change Diet Order: Contiue Nutrition Support: Vital AF 1.2 at 50ml/hr with 80ml water flush q4h. Kcal 1,440 Protein (gm) 90 Fluid (mL) 937 Goal #1 TF tolerance Goal #2 TF (at goal rate) to meet at least 75% energy and pro needs Anticipated Discharge Needs: Unable to determine at this time Follow-Up By: 03/20/21 Additional Comments F/U for stable TF; BG levels, propofol status
--- NOTE | 2021-03-17 11:38 | Progress Note ---
Assessment and Plan Acute hypoxemic respiratory failure on MVS Severe sepsis with shock Bilateral pneumonia COVID-19 infection Obesity Bilateral pulmonary emboli Leukocytosis Thrombocytopenia Elevated serum inflammatory markers to include D-dimer and LDH Metabolic acidosis Non-ST elevation myocardial infarction Oropharyngeal dysphagia - continue to titrate supplemental oxygen to keep sPO2 89-92% - VAP bundle addressed, aspiration precautions HOB >40 - continue lung protective strategies - continue bronchodilators with pulmonary hygiene per RT -Will add Precedex for agitation management - it may help with weaning trials - complete anti infectives per ID recs - continue accuchecks with glycemic control per SSI (While critically ill target blood glucose of 140-180 mg/dL; avoid hypoglycemia) Lantus at 25 units. Monitor closely. The steroid therapy fro DORI will end in soon. I anticipate that her glycemic control will improve - sedation prn for target RASS 0 to -1 - avoid nephrotoxins, renally dose all medications - continue to avoid benzodiazepines, reduce the possibility of delirium - prn analgesia per CPOT score - Maintenance of sleep-wake cycle, avoid delirium - continue enteral nutritional support at goal rate as tolerated - G.I. & VTE prophylaxis - PT/OT/ROM exercises - continue mobility , off loading, frequent turning per facility protocol for pressure ulcer prevention - Monitor hemodynamics closely - continue other care per attending / other consultants - discharge planning ongoing concurrently COVID SPECIFIC INTERVENTIONS - s/p Remdesivir as per ID/Pulmonary developed protocols -s/p Tociluzimab. She never required prone positioning - continue systemic steroids for severe COVID-19 infection empirically (Decadron 8 mg IV daily) - Monitor inflammatory markers per facility protocol - ferritin, Ddimer, CRP - therapeutic anticoagulation per system Protocol based on d-dimer and clinical considerations (full re: DVT / P.E.) - Continue contact and airborne isolation CONDITION: CRITICAL PROGNOSIS: GUARDED CODE STATUS: FULL CODE The high probability of a clinically significant, sudden or life-threatening deterioration of the [respiratory, cardiovascular & neurologic] system(s) required my full and direct attention, intervention and personal management. The aggregate critical care time was [34] minutes without overlap. Time includes spent on; [x] Data Review and interpretation [x] Patient assessment and monitoring of vital signs [x] Documentation [x] Medication orders and management Subjective Date of service: 03/10/21 Principal diagnosis: Ac. hypoxemic resp. failure; Septic Shock; COVID-19 Pneumon ia; VTE; NSTEMI Interval history: Patient is seen today for: Acute hypoxemic respiratory failure; Severe sepsis with shock; Bilateral pneumonia; COVID-19 infection; Bilateral pulmonary emboli; Thrombocytopenia; NSTEMI Seen and examined at bedside; 24hour events reviewed; nursing and respiratory care staff consulted; no adverse overnight events reported to me; resting in bed; remains on MVS PEEP of 8 and FiO2 35% ; on going severe agitation precluding weaning trials; poor glycemic control. No fevers, no diarrhea, no vomiting. On Propofol at 25, Fentanyl at 50 RIJ CVL, Maya catheter Seroquel 300mg BIID QTc <407 Objective Vital Signs - 12hr 03/16/21 03/17/21 03/17/21 23:40 00:00 00:10 Temperature Pulse Rate 68 63 66 Respiratory 14 14 Rate Blood Pressure 103/47 104/48 95/43 O2 Sat by Pulse 98 99 98 Oximetry 03/17/21 03/17/21 03/17/21 00:20 00:40 01:00 Temperature Pulse Rate 65 67 70 Respiratory 15 16 15 Rate Blood Pressure 104/48 98/50 95/43 O2 Sat by Pulse 98 99 98 Oximetry 03/17/21 03/17/21 03/17/21 01:20 01:40 02:00 Temperature Pulse Rate 62 70 65 Respiratory 17 14 16 Rate Blood Pressure 95/43 95/43 109/53 O2 Sat by Pulse 98 98 98 Oximetry 03/17/21 03/17/21 03/17/21 02:20 02:40 03:00 Temperature Pulse Rate 78 64 67 Respiratory 18 16 16 Rate Blood Pressure 109/50 102/60 105/43 O2 Sat by Pulse 98 98 99 Oximetry 03/17/21 03/17/21 03/17/21 03:08 03:20 03:40 Temperature 99.8 F H Pulse Rate 62 65 Respiratory 14 14 Rate Blood Pressure 102/60 99/43 O2 Sat by Pulse 100 99 Oximetry 03/17/21 03/17/21 03/17/21 03:48 04:00 04:20 Temperature Pulse Rate 64 68 61 Respiratory 16 14 Rate Blood Pressure 99/43 92/41 92/41 O2 Sat by Pulse 99 98 99 Oximetry 03/17/21 03/17/21 03/17/21 04:40 05:00 05:20 Temperature Pulse Rate 66 96 H 101 H Respiratory 18 17 18 Rate Blood Pressure 100/47 100/47 124/59 O2 Sat by Pulse 99 96 94 Oximetry 03/17/21 03/17/21 03/17/21 05:40 06:00 06:20 Temperature Pulse Rate 74 75 67 Respiratory 19 21 17 Rate Blood Pressure 122/70 132/62 122/70 O2 Sat by Pulse 97 98 99 Oximetry 03/17/21 03/17/21 03/17/21 06:40 07:00 07:20 Temperature 99.3 F Pulse Rate 69 64 65 Respiratory 17 16 16 Rate Blood Pressure 112/61 105/47 105/47 O2 Sat by Pulse 99 99 99 Oximetry 03/17/21 03/17/21 03/17/21 07:40 08:00 08:20 Temperature Pulse Rate 66 66 65 Respiratory 15 14 17 Rate Blood Pressure 112/54 111/53 121/75 O2 Sat by Pulse 99 99 99 Oximetry 03/17/21 08:40 Temperature Pulse Rate 68 Respiratory 16 Rate Blood Pressure 106/48 O2 Sat by Pulse 98 Oximetry Constitutional: appears uncomfortable, other (middle aged obese female with mildly increased respiratory effort at rest on MVS) Eyes: non-icteric ENT: oropharynx moist, other (ETT 24 cm ZULEMA) Neck: supple, no lymphadenopathy, other (large circumference) Effort: mildly labored Ascultation: Bilateral: rales (bases anteriorly) Percussion: Bilateral: not dull Cardiovascular: regular rate and rhythm, other (S1,S2) Gastrointestinal: normoactive bowel sounds, soft, non-tender, non-distended (protuberant) Integumentary: normal Extremities: no cyanosis, no edema, pink and warm, pulses normal Neurologic: non-focal exam (moves all extremities), pupils equal and round Psychiatric: other (unable to assess re: sedation) CBC and BMP: 03/16/21 07:43 03/16/21 07:43 ABG, PT/INR, D-dimer: ABG ABG pH 7.515 (7.320-7.450) H 03/15/21 03:10 POC ABG pCO2 35.4 mmHg (32.0-48.0) 03/15/21 03:10 ABG pCO2 39.5 mm Hg 03/07/21 Unknown POC ABG pO2 97.4 mmHg (83-108) 03/15/21 03:10 ABG pO2 62.6 mm Hg (80.0-90.0) L 03/07/21 Unknown POC ABG HCO3 27.9 03/15/21 03:10 ABG O2 Saturation 97.7 (0-100) 03/15/21 03:10 PT/INR, D-dimer PT 18.5 Sec. (12.2-14.9) H 03/08/21 07:55 INR 1.49 (0.87-1.13) H 03/08/21 07:55 D-Dimer 4124.04 ng/mlDDU (0-234) H 03/16/21 07:43 Abnormal lab findings: Abnormal Labs 03/07/21 03/07/21 03/07/21 13:00 20:31 20:31 WBC RBC Hgb Hct RDW Plt Count Seg Neuts % (Manual) Lymphocytes % (Manual) Nucleated RBC % Seg Neutrophils # Man Lymphocytes # (Manual) Monocytes # (Manual) PT INR APTT D-Dimer > 29918 H Heparin Anti-Xa Level ABG pH POC ABG pCO2 POC ABG pO2 ABG pO2 ABG O2 Saturation ABG Base Excess ABG Hemoglobin ABG Oxyhemoglobin ABG Sodium ABG Potassium ABG Chloride ABG Glucose Oxyhemoglobin Carboxyhemoglobin Sodium 133 L Chloride 94.6 L Carbon Dioxide 17 L BUN 22 H Creatinine Glucose 309 H POC Glucose Lactic Acid 5.10 H* Calcium Ferritin Lactate Dehydrogenase Troponin T 0.085 H C-Reactive Protein Total Protein Albumin 3.5 L Triglycerides 213 H HDL Cholesterol 34 L Arterial Blood Glucose Arterial Blood Ionized Calcium Ur Specific [place] Coronavirus (PCR) 03/07/21 03/07/21 03/07/21 20:31 21:04 21:28 WBC 31.6 H RBC Hgb Hct RDW 15.3 H Plt Count Seg Neuts % (Manual) 73.0 H Lymphocytes % (Manual) 11.5 L Nucleated RBC % 7.0 H Seg Neutrophils # Man 23.1 H Lymphocytes # (Manual) Monocytes # (Manual) 1.7 H PT INR APTT D-Dimer > 94665 H Heparin Anti-Xa Level ABG pH POC ABG pCO2 POC ABG pO2 ABG pO2 ABG O2 Saturation ABG Base Excess ABG Hemoglobin ABG Oxyhemoglobin ABG Sodium ABG Potassium ABG Chloride ABG Glucose Oxyhemoglobin Carboxyhemoglobin Sodium Chloride Carbon Dioxide BUN Creatinine Glucose 301 H POC Glucose Lactic Acid Calcium Ferritin Lactate Dehydrogenase 1259 H Troponin T C-Reactive Protein 25.50 H Total Protein Albumin Triglycerides HDL Cholesterol Arterial Blood Glucose Arterial Blood Ionized Calcium Ur Specific [place] Coronavirus (PCR) 03/07/21 03/07/21 03/07/21 21:28 22:48 Unknown WBC RBC Hgb Hct RDW Plt Count Seg Neuts % (Manual) Lymphocytes % (Manual) Nucleated RBC % Seg Neutrophils # Man Lymphocytes # (Manual) Monocytes # (Manual) PT INR APTT D-Dimer Heparin Anti-Xa Level ABG pH POC ABG pCO2 POC ABG pO2 ABG pO2 ABG O2 Saturation ABG Base Excess ABG Hemoglobin ABG Oxyhemoglobin ABG Sodium ABG Potassium ABG Chloride ABG Glucose Oxyhemoglobin Carboxyhemoglobin Sodium Chloride Carbon Dioxide BUN Creatinine Glucose POC Glucose Lactic Acid 6.00 H* 3.40 H* Calcium Ferritin Lactate Dehydrogenase Troponin T C-Reactive Protein Total Protein Albumin Triglycerides HDL Cholesterol Arterial Blood Glucose Arterial Blood Ionized Calcium Ur Specific [place] Coronavirus (PCR) Positive A 03/07/21 03/08/21 03/08/21 Unknown 05:51 06:18 WBC 27.5 H RBC Hgb Hct RDW Plt Count 108 L Seg Neuts % (Manual) 85.0 H Lymphocytes % (Manual) 1.0 L Nucleated RBC % 7.0 H Seg Neutrophils # Man 23.4 H Lymphocytes # (Manual) 0.3 L Monocytes # (Manual) PT INR APTT D-Dimer Heparin Anti-Xa Level ABG pH 7.338 L POC ABG pCO2 POC ABG pO2 ABG pO2 62.6 L ABG O2 Saturation 89.1 L ABG Base Excess -4.7 L ABG Hemoglobin ABG Oxyhemoglobin ABG Sodium ABG Potassium ABG Chloride ABG Glucose Oxyhemoglobin 87.3 L Carboxyhemoglobin Sodium Chloride Carbon Dioxide BUN Creatinine Glucose POC Glucose Lactic Acid Calcium Ferritin Lactate Dehydrogenase Troponin T C-Reactive Protein Total Protein Albumin Triglycerides HDL Cholesterol Arterial Blood Glucose Arterial Blood Ionized Calcium Ur Specific [place] > 1.050 H Coronavirus (PCR) 03/08/21 03/08/21 03/08/21 06:18 06:18 07:29 WBC RBC Hgb Hct RDW Plt Count Seg Neuts % (Manual) Lymphocytes % (Manual) Nucleated RBC % Seg Neutrophils # Man Lymphocytes # (Manual) Monocytes # (Manual) PT 20.3 H INR 1.69 H APTT D-Dimer Heparin Anti-Xa Level ABG pH POC ABG pCO2 POC ABG pO2 ABG pO2 ABG O2 Saturation ABG Base Excess ABG Hemoglobin ABG Oxyhemoglobin ABG Sodium ABG Potassium ABG Chloride ABG Glucose Oxyhemoglobin Carboxyhemoglobin Sodium Chloride Carbon Dioxide BUN 21 H Creatinine Glucose 188 H POC Glucose 192 H Lactic Acid Calcium 6.8 L D Ferritin Lactate Dehydrogenase Troponin T C-Reactive Protein Total Protein Albumin Triglycerides HDL Cholesterol Arterial Blood Glucose Arterial Blood Ionized Calcium Ur Specific [place] Coronavirus (PCR) 03/08/21 03/08/21 03/08/21 07:55 08:06 11:35 WBC RBC Hgb Hct RDW Plt Count Seg Neuts % (Manual) Lymphocytes % (Manual) Nucleated RBC % Seg Neutrophils # Man Lymphocytes # (Manual) Monocytes # (Manual) PT 18.5 H INR 1.49 H APTT 113.5 H* D-Dimer Heparin Anti-Xa Level ABG pH 7.311 L POC ABG pCO2 POC ABG pO2 ABG pO2 ABG O2 Saturation ABG Base Excess ABG Hemoglobin 11.8 L ABG Oxyhemoglobin ABG Sodium ABG Potassium ABG Chloride 111.0 H ABG Glucose 176 H Oxyhemoglobin Carboxyhemoglobin 0.4 L Sodium Chloride Carbon Dioxide BUN Creatinine Glucose POC Glucose 142 H Lactic Acid Calcium Ferritin Lactate Dehydrogenase Troponin T C-Reactive Protein Total Protein Albumin Triglycerides HDL Cholesterol Arterial Blood Glucose 176 H Arterial Blood Ionized Calcium 4.1 L Ur Specific [place] Coronavirus (PCR) 03/08/21 03/08/21 03/08/21 13:00 16:59 21:00 WBC RBC Hgb Hct RDW Plt Count Seg Neuts % (Manual) Lymphocytes % (Manual) Nucleated RBC % Seg Neutrophils # Man Lymphocytes # (Manual) Monocytes # (Manual) PT INR APTT D-Dimer Heparin Anti-Xa Level 0.22 L ABG pH POC ABG pCO2 30.1 L POC ABG pO2 74.9 L ABG pO2 ABG O2 Saturation ABG Base Excess ABG Hemoglobin 10.0 L ABG Oxyhemoglobin 93.8 L ABG Sodium ABG Potassium ABG Chloride 113.0 H ABG Glucose 250 H Oxyhemoglobin Carboxyhemoglobin 0.3 L Sodium Chloride Carbon Dioxide BUN Creatinine Glucose POC Glucose 196 H Lactic Acid Calcium Ferritin Lactate Dehydrogenase Troponin T C-Reactive Protein Total Protein Albumin Triglycerides HDL Cholesterol Arterial Blood Glucose 250 H Arterial Blood Ionized Calcium 4.0 L Ur Specific [place] Coronavirus (PCR) 03/08/21 03/08/21 03/09/21 21:19 21:30 03:14 WBC RBC Hgb Hct RDW Plt Count Seg Neuts % (Manual) Lymphocytes % (Manual) Nucleated RBC % Seg Neutrophils # Man Lymphocytes # (Manual) Monocytes # (Manual) PT INR APTT D-Dimer Heparin Anti-Xa Level 0.16 L ABG pH POC ABG pCO2 31.0 L POC ABG pO2 80.4 L ABG pO2 ABG O2 Saturation ABG Base Excess ABG Hemoglobin 9.4 L ABG Oxyhemoglobin ABG Sodium ABG Potassium ABG Chloride 114.0 H ABG Glucose 249 H Oxyhemoglobin Carboxyhemoglobin 0.3 L Sodium Chloride Carbon Dioxide BUN Creatinine Glucose POC Glucose 250 H Lactic Acid Calcium Ferritin Lactate Dehydrogenase Troponin T C-Reactive Protein Total Protein Albumin Triglycerides HDL Cholesterol Arterial Blood Glucose 249 H Arterial Blood Ionized Calcium 4.1 L Ur Specific [place] Coronavirus (PCR) 03/09/21 03/09/21 03/09/21 05:26 06:31 11:25 WBC RBC Hgb Hct RDW Plt Count Seg Neuts % (Manual) Lymphocytes % (Manual) Nucleated RBC % Seg Neutrophils # Man Lymphocytes # (Manual) Monocytes # (Manual) PT INR APTT D-Dimer Heparin Anti-Xa Level ABG pH POC ABG pCO2 POC ABG pO2 ABG pO2 ABG O2 Saturation ABG Base Excess ABG Hemoglobin ABG Oxyhemoglobin ABG Sodium ABG Potassium ABG Chloride ABG Glucose Oxyhemoglobin Carboxyhemoglobin Sodium Chloride 110.6 H Carbon Dioxide 20 L BUN 22 H Creatinine Glucose 244 H POC Glucose 217 H 235 H Lactic Acid Calcium 6.7 L Ferritin Lactate Dehydrogenase Troponin T C-Reactive Protein Total Protein 5.6 L D Albumin 2.5 L Triglycerides HDL Cholesterol Arterial Blood Glucose Arterial Blood Ionized Calcium Ur Specific [place] Coronavirus (PCR) 03/09/21 03/09/21 03/09/21 12:10 17:29 23:13 WBC 24.1 H RBC 3.29 L Hgb 9.3 L Hct 28.7 L RDW 15.5 H Plt Count Seg Neuts % (Manual) 84.0 H Lymphocytes % (Manual) 1.0 L Nucleated RBC % 3.0 H Seg Neutrophils # Man 20.2 H Lymphocytes # (Manual) 0.2 L Monocytes # (Manual) PT INR APTT D-Dimer Heparin Anti-Xa Level ABG pH POC ABG pCO2 POC ABG pO2 ABG pO2 ABG O2 Saturation ABG Base Excess ABG Hemoglobin ABG Oxyhemoglobin ABG Sodium ABG Potassium ABG Chloride ABG Glucose Oxyhemoglobin Carboxyhemoglobin Sodium Chloride Carbon Dioxide BUN Creatinine Glucose POC Glucose 279 H 284 H Lactic Acid Calcium Ferritin Lactate Dehydrogenase Troponin T C-Reactive Protein Total Protein Albumin Triglycerides HDL Cholesterol Arterial Blood Glucose Arterial Blood Ionized Calcium Ur Specific [place] Coronavirus (PCR) 03/10/21 03/10/21 03/10/21 01:12 03:29 04:32 WBC 22.6 H 21.5 H RBC 3.31 L 3.33 L Hgb 9.3 L 9.4 L Hct 28.9 L 28.9 L RDW 15.3 H Plt Count Seg Neuts % (Manual) 89.0 H Lymphocytes % (Manual) 6.0 L Nucleated RBC % Seg Neutrophils # Man 20.1 H Lymphocytes # (Manual) Monocytes # (Manual) 1.1 H PT INR APTT D-Dimer Heparin Anti-Xa Level ABG pH POC ABG pCO2 26.7 L POC ABG pO2 148.7 H ABG pO2 ABG O2 Saturation ABG Base Excess ABG Hemoglobin 9.5 L ABG Oxyhemoglobin 98.3 H ABG Sodium ABG Potassium 4.7 H ABG Chloride 114.0 H ABG Glucose 263 H Oxyhemoglobin Carboxyhemoglobin 0.3 L Sodium Chloride Carbon Dioxide BUN Creatinine Glucose POC Glucose Lactic Acid Calcium Ferritin Lactate Dehydrogenase Troponin T C-Reactive Protein Total Protein Albumin Triglycerides HDL Cholesterol Arterial Blood Glucose 263 H Arterial Blood Ionized Calcium 4.4 L Ur Specific [place] Coronavirus (PCR) 03/10/21 03/10/21 03/10/21 04:32 04:32 05:26 WBC RBC Hgb Hct RDW Plt Count Seg Neuts % (Manual) Lymphocytes % (Manual) Nucleated RBC % Seg Neutrophils # Man Lymphocytes # (Manual) Monocytes # (Manual) PT INR APTT D-Dimer Heparin Anti-Xa Level ABG pH POC ABG pCO2 POC ABG pO2 ABG pO2 ABG O2 Saturation ABG Base Excess ABG Hemoglobin ABG Oxyhemoglobin ABG Sodium ABG Potassium ABG Chloride ABG Glucose Oxyhemoglobin Carboxyhemoglobin Sodium Chloride 112.2 H 111.0 H Carbon Dioxide 21 L 21 L BUN 24 H 25 H Creatinine Glucose 262 H 258 H POC Glucose 246 H Lactic Acid Calcium 7.5 L 7.3 L Ferritin Lactate Dehydrogenase Troponin T C-Reactive Protein Total Protein 5.8 L Albumin 2.8 L Triglycerides HDL Cholesterol Arterial Blood Glucose Arterial Blood Ionized Calcium Ur Specific [place] Coronavirus (PCR) 03/10/21 03/10/21 03/10/21 11:50 17:18 21:39 WBC RBC Hgb Hct RDW Plt Count Seg Neuts % (Manual) Lymphocytes % (Manual) Nucleated RBC % Seg Neutrophils # Man Lymphocytes # (Manual) Monocytes # (Manual) PT INR APTT D-Dimer Heparin Anti-Xa Level ABG pH POC ABG pCO2 POC ABG pO2 ABG pO2 ABG O2 Saturation ABG Base Excess ABG Hemoglobin ABG Oxyhemoglobin ABG Sodium ABG Potassium ABG Chloride ABG Glucose Oxyhemoglobin Carboxyhemoglobin Sodium Chloride Carbon Dioxide BUN Creatinine Glucose POC Glucose 234 H 248 H 242 H Lactic Acid Calcium Ferritin Lactate Dehydrogenase Troponin T C-Reactive Protein Total Protein Albumin Triglycerides HDL Cholesterol Arterial Blood Glucose Arterial Blood Ionized Calcium Ur Specific [place] Coronavirus (PCR) 03/10/21 03/11/21 03/11/21 22:39 02:12 04:40 WBC RBC Hgb Hct RDW Plt Count Seg Neuts % (Manual) Lymphocytes % (Manual) Nucleated RBC % Seg Neutrophils # Man Lymphocytes # (Manual) Monocytes # (Manual) PT INR APTT D-Dimer Heparin Anti-Xa Level ABG pH 7.481 H POC ABG pCO2 27.3 L POC ABG pO2 180.2 H ABG pO2 ABG O2 Saturation ABG Base Excess ABG Hemoglobin 11.2 L ABG Oxyhemoglobin 99.1 H ABG Sodium ABG Potassium ABG Chloride 111.0 H ABG Glucose 311 H Oxyhemoglobin Carboxyhemoglobin 0.2 L Sodium Chloride 108.6 H Carbon Dioxide 21 L BUN 23 H Creatinine Glucose 276 H POC Glucose 245 H Lactic Acid Calcium 8.0 L Ferritin Lactate Dehydrogenase Troponin T C-Reactive Protein Total Protein 6.1 L Albumin 3.2 L Triglycerides HDL Cholesterol Arterial Blood Glucose 311 H Arterial Blood Ionized Calcium 4.5 L Ur Specific [place] Coronavirus (PCR) 03/11/21 03/11/21 03/11/21 04:55 12:35 18:15 WBC RBC Hgb Hct RDW Plt Count Seg Neuts % (Manual) Lymphocytes % (Manual) Nucleated RBC % Seg Neutrophils # Man Lymphocytes # (Manual) Monocytes # (Manual) PT INR APTT D-Dimer Heparin Anti-Xa Level ABG pH POC ABG pCO2 POC ABG pO2 ABG pO2 ABG O2 Saturation ABG Base Excess ABG Hemoglobin ABG Oxyhemoglobin ABG Sodium ABG Potassium ABG Chloride ABG Glucose Oxyhemoglobin Carboxyhemoglobin Sodium Chloride Carbon Dioxide BUN Creatinine Glucose POC Glucose 260 H 273 H 283 H Lactic Acid Calcium Ferritin Lactate Dehydrogenase Troponin T C-Reactive Protein Total Protein Albumin Triglycerides HDL Cholesterol Arterial Blood Glucose Arterial Blood Ionized Calcium Ur Specific [place] Coronavirus (PCR) 03/11/21 03/12/21 03/12/21 23:17 04:00 05:39 WBC RBC Hgb Hct RDW Plt Count Seg Neuts % (Manual) Lymphocytes % (Manual) Nucleated RBC % Seg Neutrophils # Man Lymphocytes # (Manual) Monocytes # (Manual) PT INR APTT D-Dimer Heparin Anti-Xa Level ABG pH 7.463 H POC ABG pCO2 30.9 L POC ABG pO2 ABG pO2 ABG O2 Saturation ABG Base Excess ABG Hemoglobin 10.7 L ABG Oxyhemoglobin ABG Sodium ABG Potassium ABG Chloride ABG Glucose 310 H Oxyhemoglobin Carboxyhemoglobin 0.3 L Sodium Chloride Carbon Dioxide BUN Creatinine Glucose POC Glucose 280 H 278 H Lactic Acid Calcium Ferritin Lactate Dehydrogenase Troponin T C-Reactive Protein Total Protein Albumin Triglycerides HDL Cholesterol Arterial Blood Glucose 310 H Arterial Blood Ionized Calcium Ur Specific [place] Coronavirus (PCR) 03/12/21 03/12/21 03/12/21 05:52 05:52 13:02 WBC 41.7 H* RBC Hgb Hct RDW Plt Count Seg Neuts % (Manual) Lymphocytes % (Manual) Nucleated RBC % Seg Neutrophils # Man Lymphocytes # (Manual) Monocytes # (Manual) PT INR APTT D-Dimer Heparin Anti-Xa Level ABG pH POC ABG pCO2 POC ABG pO2 ABG pO2 ABG O2 Saturation ABG Base Excess ABG Hemoglobin ABG Oxyhemoglobin ABG Sodium ABG Potassium ABG Chloride ABG Glucose Oxyhemoglobin Carboxyhemoglobin Sodium Chloride 107.5 H Carbon Dioxide BUN Creatinine 0.5 L Glucose 297 H POC Glucose 345 H Lactic Acid Calcium 8.1 L Ferritin Lactate Dehydrogenase Troponin T C-Reactive Protein Total Protein Albumin Triglycerides HDL Cholesterol Arterial Blood Glucose Arterial Blood Ionized Calcium Ur Specific [place] Coronavirus (PCR) 03/12/21 03/12/21 03/13/21 17:11 23:32 04:00 WBC RBC Hgb Hct RDW Plt Count Seg Neuts % (Manual) Lymphocytes % (Manual) Nucleated RBC % Seg Neutrophils # Man Lymphocytes # (Manual) Monocytes # (Manual) PT INR APTT D-Dimer Heparin Anti-Xa Level 0.29 L ABG pH POC ABG pCO2 POC ABG pO2 ABG pO2 ABG O2 Saturation ABG Base Excess ABG Hemoglobin ABG Oxyhemoglobin ABG Sodium ABG Potassium ABG Chloride ABG Glucose Oxyhemoglobin Carboxyhemoglobin Sodium Chloride Carbon Dioxide BUN Creatinine Glucose POC Glucose 383 H 282 H Lactic Acid Calcium Ferritin Lactate Dehydrogenase Troponin T C-Reactive Protein Total Protein Albumin Triglycerides HDL Cholesterol Arterial Blood Glucose Arterial Blood Ionized Calcium Ur Specific [place] Coronavirus (PCR) 03/13/21 03/13/21 03/13/21 04:00 04:00 05:28 WBC 32.9 H RBC Hgb Hct RDW Plt Count Seg Neuts % (Manual) Lymphocytes % (Manual) Nucleated RBC % Seg Neutrophils # Man Lymphocytes # (Manual) Monocytes # (Manual) PT INR APTT D-Dimer Heparin Anti-Xa Level ABG pH POC ABG pCO2 POC ABG pO2 ABG pO2 ABG O2 Saturation ABG Base Excess ABG Hemoglobin ABG Oxyhemoglobin ABG Sodium ABG Potassium ABG Chloride ABG Glucose Oxyhemoglobin Carboxyhemoglobin Sodium Chloride Carbon Dioxide BUN 18 H Creatinine 0.4 L Glucose 316 H POC Glucose 318 H Lactic Acid Calcium Ferritin Lactate Dehydrogenase Troponin T C-Reactive Protein Total Protein Albumin Triglycerides HDL Cholesterol Arterial Blood Glucose Arterial Blood Ionized Calcium Ur Specific [place] Coronavirus (PCR) 03/13/21 03/13/21 03/13/21 05:58 12:41 13:41 WBC RBC Hgb Hct RDW Plt Count Seg Neuts % (Manual) Lymphocytes % (Manual) Nucleated RBC % Seg Neutrophils # Man Lymphocytes # (Manual) Monocytes # (Manual) PT INR APTT D-Dimer Heparin Anti-Xa Level ABG pH 7.465 H POC ABG pCO2 POC ABG pO2 79.5 L ABG pO2 ABG O2 Saturation ABG Base Excess ABG Hemoglobin 10.6 L ABG Oxyhemoglobin ABG Sodium ABG Potassium ABG Chloride ABG Glucose 319 H Oxyhemoglobin Carboxyhemoglobin 0.4 L Sodium Chloride Carbon Dioxide BUN Creatinine Glucose POC Glucose 304 H 342 H Lactic Acid Calcium Ferritin Lactate Dehydrogenase Troponin T C-Reactive Protein Total Protein Albumin Triglycerides HDL Cholesterol Arterial Blood Glucose 319 H Arterial Blood Ionized Calcium 4.5 L Ur Specific [place] Coronavirus (PCR) 03/13/21 03/13/21 03/14/21 17:23 23:14 04:52 WBC RBC Hgb Hct RDW Plt Count Seg Neuts % (Manual) Lymphocytes % (Manual) Nucleated RBC % Seg Neutrophils # Man Lymphocytes # (Manual) Monocytes # (Manual) PT INR APTT D-Dimer Heparin Anti-Xa Level ABG pH POC ABG pCO2 POC ABG pO2 ABG pO2 ABG O2 Saturation ABG Base Excess ABG Hemoglobin ABG Oxyhemoglobin ABG Sodium ABG Potassium ABG Chloride ABG Glucose Oxyhemoglobin Carboxyhemoglobin Sodium Chloride Carbon Dioxide BUN Creatinine Glucose POC Glucose 336 H 257 H 266 H Lactic Acid Calcium Ferritin Lactate Dehydrogenase Troponin T C-Reactive Protein Total Protein Albumin Triglycerides HDL Cholesterol Arterial Blood Glucose Arterial Blood Ionized Calcium Ur Specific [place] Coronavirus (PCR) 03/14/21 03/14/21 03/14/21 08:35 08:35 08:35 WBC 21.9 H RBC Hgb Hct RDW 15.4 H Plt Count Seg Neuts % (Manual) Lymphocytes % (Manual) Nucleated RBC % Seg Neutrophils # Man Lymphocytes # (Manual) Monocytes # (Manual) PT INR APTT D-Dimer 4053.87 H Heparin Anti-Xa Level < 0.10 L ABG pH POC ABG pCO2 POC ABG pO2 ABG pO2 ABG O2 Saturation ABG Base Excess ABG Hemoglobin ABG Oxyhemoglobin ABG Sodium ABG Potassium ABG Chloride ABG Glucose Oxyhemoglobin Carboxyhemoglobin Sodium 131 L D Chloride 96.3 L Carbon Dioxide BUN 19 H Creatinine 0.3 L Glucose 265 H POC Glucose Lactic Acid Calcium Ferritin Lactate Dehydrogenase 768 H Troponin T C-Reactive Protein Total Protein Albumin Triglycerides HDL Cholesterol Arterial Blood Glucose Arterial Blood Ionized Calcium Ur Specific [place] Coronavirus (PCR) 03/14/21 03/14/21 03/14/21 08:35 11:49 16:50 WBC RBC Hgb Hct RDW Plt Count Seg Neuts % (Manual) Lymphocytes % (Manual) Nucleated RBC % Seg Neutrophils # Man Lymphocytes # (Manual) Monocytes # (Manual) PT INR APTT D-Dimer Heparin Anti-Xa Level ABG pH 7.518 H POC ABG pCO2 POC ABG pO2 ABG pO2 ABG O2 Saturation ABG Base Excess ABG Hemoglobin 11.0 L ABG Oxyhemoglobin ABG Sodium 130.5 L ABG Potassium ABG Chloride 95.0 L ABG Glucose 325 H Oxyhemoglobin Carboxyhemoglobin Sodium Chloride Carbon Dioxide BUN Creatinine Glucose POC Glucose 256 H Lactic Acid Calcium Ferritin 209.5 H Lactate Dehydrogenase Troponin T C-Reactive Protein Total Protein Albumin Triglycerides HDL Cholesterol Arterial Blood Glucose 325 H Arterial Blood Ionized Calcium 4.5 L Ur Specific [place] Coronavirus (PCR) 03/14/21 03/14/21 03/14/21 18:18 19:39 22:05 WBC RBC Hgb Hct RDW Plt Count Seg Neuts % (Manual) Lymphocytes % (Manual) Nucleated RBC % Seg Neutrophils # Man Lymphocytes # (Manual) Monocytes # (Manual) PT INR APTT D-Dimer Heparin Anti-Xa Level 0.19 L ABG pH POC ABG pCO2 POC ABG pO2 ABG pO2 ABG O2 Saturation ABG Base Excess ABG Hemoglobin ABG Oxyhemoglobin ABG Sodium ABG Potassium ABG Chloride ABG Glucose Oxyhemoglobin Carboxyhemoglobin Sodium Chloride Carbon Dioxide BUN Creatinine Glucose POC Glucose 299 H 276 H Lactic Acid Calcium Ferritin Lactate Dehydrogenase Troponin T C-Reactive Protein Total Protein Albumin Triglycerides HDL Cholesterol Arterial Blood Glucose Arterial Blood Ionized Calcium Ur Specific [place] Coronavirus (PCR) 03/14/21 03/15/21 03/15/21 23:47 03:10 05:13 WBC RBC Hgb Hct RDW Plt Count Seg Neuts % (Manual) Lymphocytes % (Manual) Nucleated RBC % Seg Neutrophils # Man Lymphocytes # (Manual) Monocytes # (Manual) PT INR APTT D-Dimer Heparin Anti-Xa Level ABG pH 7.515 H POC ABG pCO2 POC ABG pO2 ABG pO2 ABG O2 Saturation ABG Base Excess ABG Hemoglobin 11.0 L ABG Oxyhemoglobin ABG Sodium 131.4 L ABG Potassium ABG Chloride 95.0 L ABG Glucose 239 H Oxyhemoglobin Carboxyhemoglobin Sodium Chloride Carbon Dioxide BUN Creatinine Glucose POC Glucose 344 H 245 H Lactic Acid Calcium Ferritin Lactate Dehydrogenase Troponin T C-Reactive Protein Total Protein Albumin Triglycerides HDL Cholesterol Arterial Blood Glucose 239 H Arterial Blood Ionized Calcium 4.5 L Ur Specific [place] Coronavirus (PCR) 03/15/21 03/15/21 03/15/21 06:00 11:40 17:07 WBC RBC Hgb Hct RDW Plt Count Seg Neuts % (Manual) Lymphocytes % (Manual) Nucleated RBC % Seg Neutrophils # Man Lymphocytes # (Manual) Monocytes # (Manual) PT INR APTT D-Dimer Heparin Anti-Xa Level ABG pH POC ABG pCO2 POC ABG pO2 ABG pO2 ABG O2 Saturation ABG Base Excess ABG Hemoglobin ABG Oxyhemoglobin ABG Sodium ABG Potassium ABG Chloride ABG Glucose Oxyhemoglobin Carboxyhemoglobin Sodium 136 L Chloride 94.6 L Carbon Dioxide 31 H BUN Creatinine 0.3 L Glucose 227 H POC Glucose 224 H 324 H Lactic Acid Calcium Ferritin Lactate Dehydrogenase Troponin T C-Reactive Protein Total Protein Albumin Triglycerides HDL Cholesterol Arterial Blood Glucose Arterial Blood Ionized Calcium Ur Specific [place] Coronavirus (PCR) 03/15/21 03/16/21 03/16/21 23:42 05:49 07:43 WBC 26.2 H RBC Hgb Hct RDW Plt Count Seg Neuts % (Manual) Lymphocytes % (Manual) Nucleated RBC % Seg Neutrophils # Man Lymphocytes # (Manual) Monocytes # (Manual) PT INR APTT D-Dimer Heparin Anti-Xa Level ABG pH POC ABG pCO2 POC ABG pO2 ABG pO2 ABG O2 Saturation ABG Base Excess ABG Hemoglobin ABG Oxyhemoglobin ABG Sodium ABG Potassium ABG Chloride ABG Glucose Oxyhemoglobin Carboxyhemoglobin Sodium Chloride Carbon Dioxide BUN Creatinine Glucose POC Glucose 278 H 216 H Lactic Acid Calcium Ferritin Lactate Dehydrogenase Troponin T C-Reactive Protein Total Protein Albumin Triglycerides HDL Cholesterol Arterial Blood Glucose Arterial Blood Ionized Calcium Ur Specific [place] Coronavirus (PCR) 03/16/21 03/16/21 03/16/21 07:43 07:43 07:43 WBC RBC Hgb Hct RDW Plt Count Seg Neuts % (Manual) Lymphocytes % (Manual) Nucleated RBC % Seg Neutrophils # Man Lymphocytes # (Manual) Monocytes # (Manual) PT INR APTT D-Dimer 4124.04 H Heparin Anti-Xa Level 1.69 H ABG pH POC ABG pCO2 POC ABG pO2 ABG pO2 ABG O2 Saturation ABG Base Excess ABG Hemoglobin ABG Oxyhemoglobin ABG Sodium ABG Potassium ABG Chloride ABG Glucose Oxyhemoglobin Carboxyhemoglobin Sodium Chloride Carbon Dioxide 32 H BUN Creatinine 0.4 L Glucose 230 H POC Glucose Lactic Acid Calcium Ferritin Lactate Dehydrogenase 662 H Troponin T C-Reactive Protein Total Protein Albumin Triglycerides HDL Cholesterol Arterial Blood Glucose Arterial Blood Ionized Calcium Ur Specific [place] Coronavirus (PCR) 03/16/21 03/16/21 03/16/21 07:43 11:00 17:06 WBC RBC Hgb Hct RDW Plt Count Seg Neuts % (Manual) Lymphocytes % (Manual) Nucleated RBC % Seg Neutrophils # Man Lymphocytes # (Manual) Monocytes # (Manual) PT INR APTT D-Dimer Heparin Anti-Xa Level 0.78 H ABG pH POC ABG pCO2 POC ABG pO2 ABG pO2 ABG O2 Saturation ABG Base Excess ABG Hemoglobin ABG Oxyhemoglobin ABG Sodium ABG Potassium ABG Chloride ABG Glucose Oxyhemoglobin Carboxyhemoglobin Sodium Chloride Carbon Dioxide BUN Creatinine Glucose POC Glucose 239 H Lactic Acid Calcium Ferritin Lactate Dehydrogenase Troponin T C-Reactive Protein Total Protein Albumin Triglycerides 173 H HDL Cholesterol Arterial Blood Glucose Arterial Blood Ionized Calcium Ur Specific [place] Coronavirus (PCR) 03/16/21 03/16/21 03/17/21 17:07 23:16 00:37 WBC RBC Hgb Hct RDW Plt Count Seg Neuts % (Manual) Lymphocytes % (Manual) Nucleated RBC % Seg Neutrophils # Man Lymphocytes # (Manual) Monocytes # (Manual) PT INR APTT D-Dimer Heparin Anti-Xa Level 1.14 H ABG pH POC ABG pCO2 POC ABG pO2 ABG pO2 ABG O2 Saturation ABG Base Excess ABG Hemoglobin ABG Oxyhemoglobin ABG Sodium ABG Potassium ABG Chloride ABG Glucose Oxyhemoglobin Carboxyhemoglobin Sodium Chloride Carbon Dioxide BUN Creatinine Glucose POC Glucose 315 H 248 H Lactic Acid Calcium Ferritin Lactate Dehydrogenase Troponin T C-Reactive Protein Total Protein Albumin Triglycerides HDL Cholesterol Arterial Blood Glucose Arterial Blood Ionized Calcium Ur Specific [place] Coronavirus (PCR) 03/17/21 03/17/21 05:24 11:29 WBC RBC Hgb Hct RDW Plt Count Seg Neuts % (Manual) Lymphocytes % (Manual) Nucleated RBC % Seg Neutrophils # Man Lymphocytes # (Manual) Monocytes # (Manual) PT INR APTT D-Dimer Heparin Anti-Xa Level ABG pH POC ABG pCO2 POC ABG pO2 ABG pO2 ABG O2 Saturation ABG Base Excess ABG Hemoglobin ABG Oxyhemoglobin ABG Sodium ABG Potassium ABG Chloride ABG Glucose Oxyhemoglobin Carboxyhemoglobin Sodium Chloride Carbon Dioxide BUN Creatinine Glucose POC Glucose 170 H 211 H Lactic Acid Calcium Ferritin Lactate Dehydrogenase Troponin T C-Reactive Protein Total Protein Albumin Triglycerides HDL Cholesterol Arterial Blood Glucose Arterial Blood Ionized Calcium Ur Specific [place] Coronavirus (PCR) Chest x-ray: image reviewed Allied health notes reviewed: RT
[2021-03-17] MEDS: fentaNYL 100 MCG/2 ML INJ IV PRN (12:16)
--- NOTE | 2021-03-17 14:30 | Progress Note ---
Assessment and Plan Cultures: Blood culture no growth so far Covid PCR: Positive A/P: 45-year-old female no past medical history admitted with COVID-19 pneumonia and bilateral pulmonary emboli. #Severe COVID-19 pneumonia: Patient presented with 3 days of symptoms, chest x- ray with diffuse bilateral infiltrates, admission O2 sats 50% on room air. Inflammatory markers elevated #Acute hypoxemic respiratory failure: Likely secondary to COVID-19 infection. Currently on the vent #Bilateral pulmonary emboli: Anticoagulation per primary #Obesity: Associated with worse COVID-19 outcomes. Recs: -Completed steroids -Completed remdesivir -Actemra 03/09/2021 -Obtain q48-72h inflammatory markers - ferritin, Ddimer, CRP, LDH -Completed antibiotics. Leukocytosis may be secondary to ongoing steroids, which just finished. Can follow up with repeat CBC to ensure WBC falls. -Anticoagulation per hospital protocol -Proning as able Thank you for the consult, we will continue to follow. Dr. Garcia covering this weekend, Dr. Arellano taking over Saturday. Lay Finch MD [facility] ([facility] O: [phone] F: [phone] Subjective Date of service: 03/17/21 Principal diagnosis: Ac. hypoxemic resp. failure; Septic Shock; COVID-19 Pneumonia; VTE; NSTEMI Interval history: Afebrile, remains on the vent. Imaging personally reviewed: CXR: Stable opacities Objective - Exam Narrative Exam: Physical exam deferred to reduce risk of transmission of COVID-19. Please refer to primary team's note. - Constitutional Vitals: Vital Signs Temp Pulse Resp BP Pulse Ox 98.1 F 111 H 24 151/82 95 03/17/21 12:00 03/17/21 13:00 03/17/21 13:00 03/17/21 13:00 03/17/21 13:00 Temperature -Last 24 Hours Temperature 98.1 F Temperature 98.1 F Temperature 99.3 F Temperature 99.8 F Temperature 99.2 F Temperature 99.5 F Temperature 99.8 F - Labs CBC & Chem 7: 03/16/21 07:43 03/16/21 07:43 Labs: Abnormal lab results 03/16/21 03/16/21 03/16/21 Range/Units 11:00 17:06 17:07 Heparin Anti-Xa Level 0.78 H (0.3-0.7) U.I./ml POC Glucose 239 H 315 H (70-105) mg/dL 03/16/21 03/17/21 03/17/21 Range/Units 23:16 00:37 05:24 Heparin Anti-Xa Level 1.14 H (0.3-0.7) U.I./ml POC Glucose 248 H 170 H (70-105) mg/dL 03/17/21 Range/Units 11:29 Heparin Anti-Xa Level (0.3-0.7) U.I./ml POC Glucose 211 H (70-105) mg/dL
[2021-03-17] MEDS: ENOXAPARIN 100 MG/1 ML INJ SUB-Q SCH ×2 (14:45→21:54)
--- NOTE | 2021-03-17 19:36 | Electrocardiograph Report ---
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
--- NOTE | 2021-03-17 19:50 | Electrocardiograph Report ---
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
[2021-03-18] MEDS: INSULIN LISPRO 100 UNIT/ML SUB-Q SCH ×4 (00:12→18:27)
[2021-03-18] MEDS: fentaNYL DRIP Premix 2,000 MCG/100 ML BAG IV SCH ×2 (03:15→20:22)
[2021-03-18 03:59] LABS: Hematocrit 31.8 % (30.3-42.9); Hemoglobin 10.5 gm/dl (10.1-14.3); Mean Corpuscular HGB Conc 33 % (30-34); Mean Corpuscular Volume 87 fl (79-97); Platelet Count 278 K/mm3 (140-440); Red Blood Count 3.63 M/mm3 (3.65-5.03); Red Cell Distribution Width 15.7 % (13.2-15.2)
[2021-03-18 04:35] LABS: Blood Urea Nitrogen 15 mg/dL (7-17); Calcium 9.1 mg/dL (8.4-10.2); Hemolysis Index 3
[2021-03-18 04:56] LABS: BUN/Creatinine Ratio 50
--- NOTE | 2021-03-18 08:45 | Progress Note ---
Assessment and Plan Acute hypoxemic respiratory failure on MVS Severe sepsis with shock Bilateral pneumonia COVID-19 infection Obesity Bilateral pulmonary emboli Leukocytosis Thrombocytopenia Elevated serum inflammatory markers to include D-dimer and LDH Metabolic acidosis Non-ST elevation myocardial infarction Oropharyngeal dysphagia SBT today, give one dose of Furosemide. Place back on full support tonight. Continue with Precedex while monitoring QTc, especially while on Seroquel Plan to liberate from MVS tomorrow. - continue to titrate supplemental oxygen to keep sPO2 89-92% - VAP bundle addressed, aspiration precautions HOB >40 - continue lung protective strategies - continue bronchodilators with pulmonary hygiene per RT - complete anti infectives per ID recs - continue accuchecks with glycemic control per SSI (While critically ill target blood glucose of 140-180 mg/dL; avoid hypoglycemia) - sedation prn for target RASS 0 to -1 - avoid nephrotoxins, renally dose all medications - continue to avoid benzodiazepines, reduce the possibility of delirium - prn analgesia per CPOT score - Maintenance of sleep-wake cycle, avoid delirium - continue enteral nutritional support at goal rate as tolerated - G.I. & VTE prophylaxis - PT/OT/ROM exercises - continue mobility , off loading, frequent turning per facility protocol for pressure ulcer prevention - Monitor hemodynamics closely - continue other care per attending / other consultants - discharge planning ongoing concurrently COVID SPECIFIC INTERVENTIONS - s/p Remdesivir as per ID/Pulmonary developed protocols -s/p Tociluzimab. She never required prone positioning - continue systemic steroids for severe COVID-19 infection empirically (Decadron 8 mg IV daily) - Monitor inflammatory markers per facility protocol - ferritin, Ddimer, CRP - therapeutic anticoagulation per system Protocol based on d-dimer and clinical considerations (full re: DVT / P.E.) - Continue contact and airborne isolation CONDITION: CRITICAL PROGNOSIS: GUARDED CODE STATUS: FULL CODE The high probability of a clinically significant, sudden or life-threatening det erioration of the [respiratory, cardiovascular & neurologic] system(s) required my full and direct attention, intervention and personal management. The aggregate critical care time was [34] minutes without overlap. Time includes spent on; [x] Data Review and interpretation [x] Patient assessment and monitoring of vital signs [x] Documentation [x] Medication orders and management Subjective Date of service: 03/18/21 Principal diagnosis: Ac. hypoxemic resp. failure; Septic Shock; COVID-19 Pneumonia; VTE; NSTEMI Interval history: Patient is seen today for: Acute hypoxemic respiratory failure; Severe sepsis with shock; Bilateral pneumonia; COVID-19 infection; Bilateral pulmonary emboli; Thrombocytopenia; NSTEMI Seen and examined at bedside; 24hour events reviewed; nursing and respiratory care staff consulted; no adverse overnight events reported to me; resting in bed; remains on MVS PEEP of 8 and FiO2 35% ; on going agitation precluding weaning trials; poor glycemic control. No fevers, no diarrhea, no vomiting. On Precedex, at the bedside we were able to start SBT Psupp of 12, and she is tolerating it at this time RIJ CVL, Maya catheter Objective Vital Signs - 12hr 03/17/21 03/17/21 03/17/21 21:00 21:21 21:41 Temperature Pulse Rate 57 L 60 55 L Pulse Rate [ Left Dorsalis Pedis] Respiratory 15 17 13 Rate Blood Pressure 112/61 112/61 114/58 O2 Sat by Pulse 99 99 99 Oximetry 03/17/21 03/17/21 03/17/21 22:00 22:21 22:41 Temperature Pulse Rate 52 L 53 L 57 L Pulse Rate [ Left Dorsalis Pedis] Respiratory 12 15 15 Rate Blood Pressure 106/53 106/53 101/48 O2 Sat by Pulse 99 92 89 Oximetry 03/17/21 03/17/21 03/17/21 23:00 23:18 23:21 Temperature Pulse Rate 58 L 57 L 58 L Pulse Rate [ Left Dorsalis Pedis] Respiratory 15 20 Rate Blood Pressure 102/54 102/54 102/54 O2 Sat by Pulse 91 92 91 Oximetry 03/17/21 03/18/21 03/18/21 23:41 00:00 00:21 Temperature 97.9 F Pulse Rate 53 L 56 L 59 L Pulse Rate [ 69 Left Dorsalis Pedis] Respiratory 14 14 14 Rate Blood Pressure 107/53 106/53 106/53 O2 Sat by Pulse 98 99 97 Oximetry 03/18/21 03/18/21 03/18/21 00:41 01:00 01:21 Temperature Pulse Rate 60 64 62 Pulse Rate [ Left Dorsalis Pedis] Respiratory 16 17 16 Rate Blood Pressure 107/53 119/69 119/69 O2 Sat by Pulse 98 98 98 Oximetry 03/18/21 03/18/21 03/18/21 01:41 02:00 02:21 Temperature Pulse Rate 59 L 60 58 L Pulse Rate [ Left Dorsalis Pedis] Respiratory 15 14 15 Rate Blood Pressure 110/59 114/61 114/61 O2 Sat by Pulse 98 99 98 Oximetry 03/18/21 03/18/21 03/18/21 02:41 03:00 03:21 Temperature Pulse Rate 57 L 55 L 58 L Pulse Rate [ Left Dorsalis Pedis] Respiratory 16 22 21 Rate Blood Pressure 111/56 117/65 117/65 O2 Sat by Pulse 98 98 94 Oximetry 03/18/21 03/18/21 03/18/21 03:41 04:00 04:06 Temperature 97.6 F Pulse Rate 54 L 53 L 54 L Pulse Rate [ 69 Left Dorsalis Pedis] Respiratory 18 19 Rate Blood Pressure 111/56 127/67 127/67 O2 Sat by Pulse 94 99 99 Oximetry 03/18/21 03/18/21 03/18/21 04:21 04:41 05:00 Temperature Pulse Rate 56 L 58 L 59 L Pulse Rate [ Left Dorsalis Pedis] Respiratory 12 17 15 Rate Blood Pressure 127/67 127/67 110/62 O2 Sat by Pulse 100 99 99 Oximetry 03/18/21 03/18/21 03/18/21 05:21 05:41 06:00 Temperature Pulse Rate 59 L 57 L 49 L Pulse Rate [ Left Dorsalis Pedis] Respiratory 18 19 14 Rate Blood Pressure 134/76 104/55 108/58 O2 Sat by Pulse 100 99 99 Oximetry 03/18/21 06:21 Temperature Pulse Rate 48 L Pulse Rate [ Left Dorsalis Pedis] Respiratory 13 Rate Blood Pressure 108/58 O2 Sat by Pulse 97 Oximetry Constitutional: appears uncomfortable, other (middle aged obese female with mildly increased respiratory effort at rest on MVS) Eyes: non-icteric ENT: oropharynx moist, other (ETT 24 cm ZULEMA) Neck: supple, no lymphadenopathy, other (large circumference) Effort: mildly labored Ascultation: Bilateral: rales (bases anteriorly) Percussion: Bilateral: not dull Cardiovascular: regular rate and rhythm, other (S1,S2) Gastrointestinal: normoactive bowel sounds, soft, non-tender, non-distended (protuberant) Integumentary: normal Extremities: no cyanosis, pink and warm, pulses normal, edema (1+ bilateral lower and upper extremites) Neurologic: non-focal exam (moves all extremities), pupils equal and round, CN II-XII normal Psychiatric: affect normal, anxious, other CBC and BMP: 03/18/21 03:30 03/18/21 03:30 ABG, PT/INR, D-dimer: ABG ABG pH 7.515 (7.320-7.450) H 03/15/21 03:10 POC ABG pCO2 35.4 mmHg (32.0-48.0) 03/15/21 03:10 ABG pCO2 39.5 mm Hg 03/07/21 Unknown POC ABG pO2 97.4 mmHg (83-108) 03/15/21 03:10 ABG pO2 62.6 mm Hg (80.0-90.0) L 03/07/21 Unknown POC ABG HCO3 27.9 03/15/21 03:10 ABG O2 Saturation 97.7 (0-100) 03/15/21 03:10 PT/INR, D-dimer PT 18.5 Sec. (12.2-14.9) H 03/08/21 07:55 INR 1.49 (0.87-1.13) H 03/08/21 07:55 D-Dimer 3430.09 ng/mlDDU (0-234) H 03/18/21 03:30 Abnormal lab findings: Abnormal Labs 03/07/21 03/07/21 03/07/21 13:00 20:31 20:31 WBC RBC Hgb Hct RDW Plt Count Seg Neuts % (Manual) Lymphocytes % (Manual) Nucleated RBC % Seg Neutrophils # Man Lymphocytes # (Manual) Monocytes # (Manual) PT INR APTT D-Dimer > 99434 H Heparin Anti-Xa Level ABG pH POC ABG pCO2 POC ABG pO2 ABG pO2 ABG O2 Saturation ABG Base Excess ABG Hemoglobin ABG Oxyhemoglobin ABG Sodium ABG Potassium ABG Chloride ABG Glucose Oxyhemoglobin Carboxyhemoglobin Sodium 133 L Chloride 94.6 L Carbon Dioxide 17 L BUN 22 H Creatinine Glucose 309 H POC Glucose Lactic Acid 5.10 H* Calcium Ferritin Lactate Dehydrogenase Troponin T 0.085 H C-Reactive Protein Total Protein Albumin 3.5 L Triglycerides 213 H HDL Cholesterol 34 L Arterial Blood Glucose Arterial Blood Ionized Calcium Ur Specific [place] Coronavirus (PCR) 03/07/21 03/07/21 03/07/21 20:31 21:04 21:28 WBC 31.6 H RBC Hgb Hct RDW 15.3 H Plt Count Seg Neuts % (Manual) 73.0 H Lymphocytes % (Manual) 11.5 L Nucleated RBC % 7.0 H Seg Neutrophils # Man 23.1 H Lymphocytes # (Manual) Monocytes # (Manual) 1.7 H PT INR APTT D-Dimer > 77952 H Heparin Anti-Xa Level ABG pH POC ABG pCO2 POC ABG pO2 ABG pO2 ABG O2 Saturation ABG Base Excess ABG Hemoglobin ABG Oxyhemoglobin ABG Sodium ABG Potassium ABG Chloride ABG Glucose Oxyhemoglobin Carboxyhemoglobin Sodium Chloride Carbon Dioxide BUN Creatinine Glucose 301 H POC Glucose Lactic Acid Calcium Ferritin Lactate Dehydrogenase 1259 H Troponin T C-Reactive Protein 25.50 H Total Protein Albumin Triglycerides HDL Cholesterol Arterial Blood Glucose Arterial Blood Ionized Calcium Ur Specific [place] Coronavirus (PCR) 03/07/21 03/07/21 03/07/21 21:28 22:48 Unknown WBC RBC Hgb Hct RDW Plt Count Seg Neuts % (Manual) Lymphocytes % (Manual) Nucleated RBC % Seg Neutrophils # Man Lymphocytes # (Manual) Monocytes # (Manual) PT INR APTT D-Dimer Heparin Anti-Xa Level ABG pH POC ABG pCO2 POC ABG pO2 ABG pO2 ABG O2 Saturation ABG Base Excess ABG Hemoglobin ABG Oxyhemoglobin ABG Sodium ABG Potassium ABG Chloride ABG Glucose Oxyhemoglobin Carboxyhemoglobin Sodium Chloride Carbon Dioxide BUN Creatinine Glucose POC Glucose Lactic Acid 6.00 H* 3.40 H* Calcium Ferritin Lactate Dehydrogenase Troponin T C-Reactive Protein Total Protein Albumin Triglycerides HDL Cholesterol Arterial Blood Glucose Arterial Blood Ionized Calcium Ur Specific [place] Coronavirus (PCR) Positive A 03/07/21 03/08/21 03/08/21 Unknown 05:51 06:18 WBC 27.5 H RBC Hgb Hct RDW Plt Count 108 L Seg Neuts % (Manual) 85.0 H Lymphocytes % (Manual) 1.0 L Nucleated RBC % 7.0 H Seg Neutrophils # Man 23.4 H Lymphocytes # (Manual) 0.3 L Monocytes # (Manual) PT INR APTT D-Dimer Heparin Anti-Xa Level ABG pH 7.338 L POC ABG pCO2 POC ABG pO2 ABG pO2 62.6 L ABG O2 Saturation 89.1 L ABG Base Excess -4.7 L ABG Hemoglobin ABG Oxyhemoglobin ABG Sodium ABG Potassium ABG Chloride ABG Glucose Oxyhemoglobin 87.3 L Carboxyhemoglobin Sodium Chloride Carbon Dioxide BUN Creatinine Glucose POC Glucose Lactic Acid Calcium Ferritin Lactate Dehydrogenase Troponin T C-Reactive Protein Total Protein Albumin Triglycerides HDL Cholesterol Arterial Blood Glucose Arterial Blood Ionized Calcium Ur Specific [place] > 1.050 H Coronavirus (PCR) 03/08/21 03/08/21 03/08/21 06:18 06:18 07:29 WBC RBC Hgb Hct RDW Plt Count Seg Neuts % (Manual) Lymphocytes % (Manual) Nucleated RBC % Seg Neutrophils # Man Lymphocytes # (Manual) Monocytes # (Manual) PT 20.3 H INR 1.69 H APTT D-Dimer Heparin Anti-Xa Level ABG pH POC ABG pCO2 POC ABG pO2 ABG pO2 ABG O2 Saturation ABG Base Excess ABG Hemoglobin ABG Oxyhemoglobin ABG Sodium ABG Potassium ABG Chloride ABG Glucose Oxyhemoglobin Carboxyhemoglobin Sodium Chloride Carbon Dioxide BUN 21 H Creatinine Glucose 188 H POC Glucose 192 H Lactic Acid Calcium 6.8 L D Ferritin Lactate Dehydrogenase Troponin T C-Reactive Protein Total Protein Albumin Triglycerides HDL Cholesterol Arterial Blood Glucose Arterial Blood Ionized Calcium Ur Specific [place] Coronavirus (PCR) 03/08/21 03/08/21 03/08/21 07:55 08:06 11:35 WBC RBC Hgb Hct RDW Plt Count Seg Neuts % (Manual) Lymphocytes % (Manual) Nucleated RBC % Seg Neutrophils # Man Lymphocytes # (Manual) Monocytes # (Manual) PT 18.5 H INR 1.49 H APTT 113.5 H* D-Dimer Heparin Anti-Xa Level ABG pH 7.311 L POC ABG pCO2 POC ABG pO2 ABG pO2 ABG O2 Saturation ABG Base Excess ABG Hemoglobin 11.8 L ABG Oxyhemoglobin ABG Sodium ABG Potassium ABG Chloride 111.0 H ABG Glucose 176 H Oxyhemoglobin Carboxyhemoglobin 0.4 L Sodium Chloride Carbon Dioxide BUN Creatinine Glucose POC Glucose 142 H Lactic Acid Calcium Ferritin Lactate Dehydrogenase Troponin T C-Reactive Protein Total Protein Albumin Triglycerides HDL Cholesterol Arterial Blood Glucose 176 H Arterial Blood Ionized Calcium 4.1 L Ur Specific [place] Coronavirus (PCR) 03/08/21 03/08/21 03/08/21 13:00 16:59 21:00 WBC RBC Hgb Hct RDW Plt Count Seg Neuts % (Manual) Lymphocytes % (Manual) Nucleated RBC % Seg Neutrophils # Man Lymphocytes # (Manual) Monocytes # (Manual) PT INR APTT D-Dimer Heparin Anti-Xa Level 0.22 L ABG pH POC ABG pCO2 30.1 L POC ABG pO2 74.9 L ABG pO2 ABG O2 Saturation ABG Base Excess ABG Hemoglobin 10.0 L ABG Oxyhemoglobin 93.8 L ABG Sodium ABG Potassium ABG Chloride 113.0 H ABG Glucose 250 H Oxyhemoglobin Carboxyhemoglobin 0.3 L Sodium Chloride Carbon Dioxide BUN Creatinine Glucose POC Glucose 196 H Lactic Acid Calcium Ferritin Lactate Dehydrogenase Troponin T C-Reactive Protein Total Protein Albumin Triglycerides HDL Cholesterol Arterial Blood Glucose 250 H Arterial Blood Ionized Calcium 4.0 L Ur Specific [place] Coronavirus (PCR) 03/08/21 03/08/21 03/09/21 21:19 21:30 03:14 WBC RBC Hgb Hct RDW Plt Count Seg Neuts % (Manual) Lymphocytes % (Manual) Nucleated RBC % Seg Neutrophils # Man Lymphocytes # (Manual) Monocytes # (Manual) PT INR APTT D-Dimer Heparin Anti-Xa Level 0.16 L ABG pH POC ABG pCO2 31.0 L POC ABG pO2 80.4 L ABG pO2 ABG O2 Saturation ABG Base Excess ABG Hemoglobin 9.4 L ABG Oxyhemoglobin ABG Sodium ABG Potassium ABG Chloride 114.0 H ABG Glucose 249 H Oxyhemoglobin Carboxyhemoglobin 0.3 L Sodium Chloride Carbon Dioxide BUN Creatinine Glucose POC Glucose 250 H Lactic Acid Calcium Ferritin Lactate Dehydrogenase Troponin T C-Reactive Protein Total Protein Albumin Triglycerides HDL Cholesterol Arterial Blood Glucose 249 H Arterial Blood Ionized Calcium 4.1 L Ur Specific [place] Coronavirus (PCR) 03/09/21 03/09/21 03/09/21 05:26 06:31 11:25 WBC RBC Hgb Hct RDW Plt Count Seg Neuts % (Manual) Lymphocytes % (Manual) Nucleated RBC % Seg Neutrophils # Man Lymphocytes # (Manual) Monocytes # (Manual) PT INR APTT D-Dimer Heparin Anti-Xa Level ABG pH POC ABG pCO2 POC ABG pO2 ABG pO2 ABG O2 Saturation ABG Base Excess ABG Hemoglobin ABG Oxyhemoglobin ABG Sodium ABG Potassium ABG Chloride ABG Glucose Oxyhemoglobin Carboxyhemoglobin Sodium Chloride 110.6 H Carbon Dioxide 20 L BUN 22 H Creatinine Glucose 244 H POC Glucose 217 H 235 H Lactic Acid Calcium 6.7 L Ferritin Lactate Dehydrogenase Troponin T C-Reactive Protein Total Protein 5.6 L D Albumin 2.5 L Triglycerides HDL Cholesterol Arterial Blood Glucose Arterial Blood Ionized Calcium Ur Specific [place] Coronavirus (PCR) 03/09/21 03/09/21 03/09/21 12:10 17:29 23:13 WBC 24.1 H RBC 3.29 L Hgb 9.3 L Hct 28.7 L RDW 15.5 H Plt Count Seg Neuts % (Manual) 84.0 H Lymphocytes % (Manual) 1.0 L Nucleated RBC % 3.0 H Seg Neutrophils # Man 20.2 H Lymphocytes # (Manual) 0.2 L Monocytes # (Manual) PT INR APTT D-Dimer Heparin Anti-Xa Level ABG pH POC ABG pCO2 POC ABG pO2 ABG pO2 ABG O2 Saturation ABG Base Excess ABG Hemoglobin ABG Oxyhemoglobin ABG Sodium ABG Potassium ABG Chloride ABG Glucose Oxyhemoglobin Carboxyhemoglobin Sodium Chloride Carbon Dioxide BUN Creatinine Glucose POC Glucose 279 H 284 H Lactic Acid Calcium Ferritin Lactate Dehydrogenase Troponin T C-Reactive Protein Total Protein Albumin Triglycerides HDL Cholesterol Arterial Blood Glucose Arterial Blood Ionized Calcium Ur Specific [place] Coronavirus (PCR) 03/10/21 03/10/21 03/10/21 01:12 03:29 04:32 WBC 22.6 H 21.5 H RBC 3.31 L 3.33 L Hgb 9.3 L 9.4 L Hct 28.9 L 28.9 L RDW 15.3 H Plt Count Seg Neuts % (Manual) 89.0 H Lymphocytes % (Manual) 6.0 L Nucleated RBC % Seg Neutrophils # Man 20.1 H Lymphocytes # (Manual) Monocytes # (Manual) 1.1 H PT INR APTT D-Dimer Heparin Anti-Xa Level ABG pH POC ABG pCO2 26.7 L POC ABG pO2 148.7 H ABG pO2 ABG O2 Saturation ABG Base Excess ABG Hemoglobin 9.5 L ABG Oxyhemoglobin 98.3 H ABG Sodium ABG Potassium 4.7 H ABG Chloride 114.0 H ABG Glucose 263 H Oxyhemoglobin Carboxyhemoglobin 0.3 L Sodium Chloride Carbon Dioxide BUN Creatinine Glucose POC Glucose Lactic Acid Calcium Ferritin Lactate Dehydrogenase Troponin T C-Reactive Protein Total Protein Albumin Triglycerides HDL Cholesterol Arterial Blood Glucose 263 H Arterial Blood Ionized Calcium 4.4 L Ur Specific [place] Coronavirus (PCR) 03/10/21 03/10/21 03/10/21 04:32 04:32 05:26 WBC RBC Hgb Hct RDW Plt Count Seg Neuts % (Manual) Lymphocytes % (Manual) Nucleated RBC % Seg Neutrophils # Man Lymphocytes # (Manual) Monocytes # (Manual) PT INR APTT D-Dimer Heparin Anti-Xa Level ABG pH POC ABG pCO2 POC ABG pO2 ABG pO2 ABG O2 Saturation ABG Base Excess ABG Hemoglobin ABG Oxyhemoglobin ABG Sodium ABG Potassium ABG Chloride ABG Glucose Oxyhemoglobin Carboxyhemoglobin Sodium Chloride 112.2 H 111.0 H Carbon Dioxide 21 L 21 L BUN 24 H 25 H Creatinine Glucose 262 H 258 H POC Glucose 246 H Lactic Acid Calcium 7.5 L 7.3 L Ferritin Lactate Dehydrogenase Troponin T C-Reactive Protein Total Protein 5.8 L Albumin 2.8 L Triglycerides HDL Cholesterol Arterial Blood Glucose Arterial Blood Ionized Calcium Ur Specific [place] Coronavirus (PCR) 03/10/21 03/10/21 03/10/21 11:50 17:18 21:39 WBC RBC Hgb Hct RDW Plt Count Seg Neuts % (Manual) Lymphocytes % (Manual) Nucleated RBC % Seg Neutrophils # Man Lymphocytes # (Manual) Monocytes # (Manual) PT INR APTT D-Dimer Heparin Anti-Xa Level ABG pH POC ABG pCO2 POC ABG pO2 ABG pO2 ABG O2 Saturation ABG Base Excess ABG Hemoglobin ABG Oxyhemoglobin ABG Sodium ABG Potassium ABG Chloride ABG Glucose Oxyhemoglobin Carboxyhemoglobin Sodium Chloride Carbon Dioxide BUN Creatinine Glucose POC Glucose 234 H 248 H 242 H Lactic Acid Calcium Ferritin Lactate Dehydrogenase Troponin T C-Reactive Protein Total Protein Albumin Triglycerides HDL Cholesterol Arterial Blood Glucose Arterial Blood Ionized Calcium Ur Specific [place] Coronavirus (PCR) 03/10/21 03/11/21 03/11/21 22:39 02:12 04:40 WBC RBC Hgb Hct RDW Plt Count Seg Neuts % (Manual) Lymphocytes % (Manual) Nucleated RBC % Seg Neutrophils # Man Lymphocytes # (Manual) Monocytes # (Manual) PT INR APTT D-Dimer Heparin Anti-Xa Level ABG pH 7.481 H POC ABG pCO2 27.3 L POC ABG pO2 180.2 H ABG pO2 ABG O2 Saturation ABG Base Excess ABG Hemoglobin 11.2 L ABG Oxyhemoglobin 99.1 H ABG Sodium ABG Potassium ABG Chloride 111.0 H ABG Glucose 311 H Oxyhemoglobin Carboxyhemoglobin 0.2 L Sodium Chloride 108.6 H Carbon Dioxide 21 L BUN 23 H Creatinine Glucose 276 H POC Glucose 245 H Lactic Acid Calcium 8.0 L Ferritin Lactate Dehydrogenase Troponin T C-Reactive Protein Total Protein 6.1 L Albumin 3.2 L Triglycerides HDL Cholesterol Arterial Blood Glucose 311 H Arterial Blood Ionized Calcium 4.5 L Ur Specific [place] Coronavirus (PCR) 03/11/21 03/11/21 03/11/21 04:55 12:35 18:15 WBC RBC Hgb Hct RDW Plt Count Seg Neuts % (Manual) Lymphocytes % (Manual) Nucleated RBC % Seg Neutrophils # Man Lymphocytes # (Manual) Monocytes # (Manual) PT INR APTT D-Dimer Heparin Anti-Xa Level ABG pH POC ABG pCO2 POC ABG pO2 ABG pO2 ABG O2 Saturation ABG Base Excess ABG Hemoglobin ABG Oxyhemoglobin ABG Sodium ABG Potassium ABG Chloride ABG Glucose Oxyhemoglobin Carboxyhemoglobin Sodium Chloride Carbon Dioxide BUN Creatinine Glucose POC Glucose 260 H 273 H 283 H Lactic Acid Calcium Ferritin Lactate Dehydrogenase Troponin T C-Reactive Protein Total Protein Albumin Triglycerides HDL Cholesterol Arterial Blood Glucose Arterial Blood Ionized Calcium Ur Specific [place] Coronavirus (PCR) 03/11/21 03/12/21 03/12/21 23:17 04:00 05:39 WBC RBC Hgb Hct RDW Plt Count Seg Neuts % (Manual) Lymphocytes % (Manual) Nucleated RBC % Seg Neutrophils # Man Lymphocytes # (Manual) Monocytes # (Manual) PT INR APTT D-Dimer Heparin Anti-Xa Level ABG pH 7.463 H POC ABG pCO2 30.9 L POC ABG pO2 ABG pO2 ABG O2 Saturation ABG Base Excess ABG Hemoglobin 10.7 L ABG Oxyhemoglobin ABG Sodium ABG Potassium ABG Chloride ABG Glucose 310 H Oxyhemoglobin Carboxyhemoglobin 0.3 L Sodium Chloride Carbon Dioxide BUN Creatinine Glucose POC Glucose 280 H 278 H Lactic Acid Calcium Ferritin Lactate Dehydrogenase Troponin T C-Reactive Protein Total Protein Albumin Triglycerides HDL Cholesterol Arterial Blood Glucose 310 H Arterial Blood Ionized Calcium Ur Specific [place] Coronavirus (PCR) 03/12/21 03/12/21 03/12/21 05:52 05:52 13:02 WBC 41.7 H* RBC Hgb Hct RDW Plt Count Seg Neuts % (Manual) Lymphocytes % (Manual) Nucleated RBC % Seg Neutrophils # Man Lymphocytes # (Manual) Monocytes # (Manual) PT INR APTT D-Dimer Heparin Anti-Xa Level ABG pH POC ABG pCO2 POC ABG pO2 ABG pO2 ABG O2 Saturation ABG Base Excess ABG Hemoglobin ABG Oxyhemoglobin ABG Sodium ABG Potassium ABG Chloride ABG Glucose Oxyhemoglobin Carboxyhemoglobin Sodium Chloride 107.5 H Carbon Dioxide BUN Creatinine 0.5 L Glucose 297 H POC Glucose 345 H Lactic Acid Calcium 8.1 L Ferritin Lactate Dehydrogenase Troponin T C-Reactive Protein Total Protein Albumin Triglycerides HDL Cholesterol Arterial Blood Glucose Arterial Blood Ionized Calcium Ur Specific [place] Coronavirus (PCR) 03/12/21 03/12/21 03/13/21 17:11 23:32 04:00 WBC RBC Hgb Hct RDW Plt Count Seg Neuts % (Manual) Lymphocytes % (Manual) Nucleated RBC % Seg Neutrophils # Man Lymphocytes # (Manual) Monocytes # (Manual) PT INR APTT D-Dimer Heparin Anti-Xa Level 0.29 L ABG pH POC ABG pCO2 POC ABG pO2 ABG pO2 ABG O2 Saturation ABG Base Excess ABG Hemoglobin ABG Oxyhemoglobin ABG Sodium ABG Potassium ABG Chloride ABG Glucose Oxyhemoglobin Carboxyhemoglobin Sodium Chloride Carbon Dioxide BUN Creatinine Glucose POC Glucose 383 H 282 H Lactic Acid Calcium Ferritin Lactate Dehydrogenase Troponin T C-Reactive Protein Total Protein Albumin Triglycerides HDL Cholesterol Arterial Blood Glucose Arterial Blood Ionized Calcium Ur Specific [place] Coronavirus (PCR) 03/13/21 03/13/21 03/13/21 04:00 04:00 05:28 WBC 32.9 H RBC Hgb Hct RDW Plt Count Seg Neuts % (Manual) Lymphocytes % (Manual) Nucleated RBC % Seg Neutrophils # Man Lymphocytes # (Manual) Monocytes # (Manual) PT INR APTT D-Dimer Heparin Anti-Xa Level ABG pH POC ABG pCO2 POC ABG pO2 ABG pO2 ABG O2 Saturation ABG Base Excess ABG Hemoglobin ABG Oxyhemoglobin ABG Sodium ABG Potassium ABG Chloride ABG Glucose Oxyhemoglobin Carboxyhemoglobin Sodium Chloride Carbon Dioxide BUN 18 H Creatinine 0.4 L Glucose 316 H POC Glucose 318 H Lactic Acid Calcium Ferritin Lactate Dehydrogenase Troponin T C-Reactive Protein Total Protein Albumin Triglycerides HDL Cholesterol Arterial Blood Glucose Arterial Blood Ionized Calcium Ur Specific [place] Coronavirus (PCR) 03/13/21 03/13/21 03/13/21 05:58 12:41 13:41 WBC RBC Hgb Hct RDW Plt Count Seg Neuts % (Manual) Lymphocytes % (Manual) Nucleated RBC % Seg Neutrophils # Man Lymphocytes # (Manual) Monocytes # (Manual) PT INR APTT D-Dimer Heparin Anti-Xa Level ABG pH 7.465 H POC ABG pCO2 POC ABG pO2 79.5 L ABG pO2 ABG O2 Saturation ABG Base Excess ABG Hemoglobin 10.6 L ABG Oxyhemoglobin ABG Sodium ABG Potassium ABG Chloride ABG Glucose 319 H Oxyhemoglobin Carboxyhemoglobin 0.4 L Sodium Chloride Carbon Dioxide BUN Creatinine Glucose POC Glucose 304 H 342 H Lactic Acid Calcium Ferritin Lactate Dehydrogenase Troponin T C-Reactive Protein Total Protein Albumin Triglycerides HDL Cholesterol Arterial Blood Glucose 319 H Arterial Blood Ionized Calcium 4.5 L Ur Specific [place] Coronavirus (PCR) 03/13/21 03/13/21 03/14/21 17:23 23:14 04:52 WBC RBC Hgb Hct RDW Plt Count Seg Neuts % (Manual) Lymphocytes % (Manual) Nucleated RBC % Seg Neutrophils # Man Lymphocytes # (Manual) Monocytes # (Manual) PT INR APTT D-Dimer Heparin Anti-Xa Level ABG pH POC ABG pCO2 POC ABG pO2 ABG pO2 ABG O2 Saturation ABG Base Excess ABG Hemoglobin ABG Oxyhemoglobin ABG Sodium ABG Potassium ABG Chloride ABG Glucose Oxyhemoglobin Carboxyhemoglobin Sodium Chloride Carbon Dioxide BUN Creatinine Glucose POC Glucose 336 H 257 H 266 H Lactic Acid Calcium Ferritin Lactate Dehydrogenase Troponin T C-Reactive Protein Total Protein Albumin Triglycerides HDL Cholesterol Arterial Blood Glucose Arterial Blood Ionized Calcium Ur Specific [place] Coronavirus (PCR) 03/14/21 03/14/21 03/14/21 08:35 08:35 08:35 WBC 21.9 H RBC Hgb Hct RDW 15.4 H Plt Count Seg Neuts % (Manual) Lymphocytes % (Manual) Nucleated RBC % Seg Neutrophils # Man Lymphocytes # (Manual) Monocytes # (Manual) PT INR APTT D-Dimer 4053.87 H Heparin Anti-Xa Level < 0.10 L ABG pH POC ABG pCO2 POC ABG pO2 ABG pO2 ABG O2 Saturation ABG Base Excess ABG Hemoglobin ABG Oxyhemoglobin ABG Sodium ABG Potassium ABG Chloride ABG Glucose Oxyhemoglobin Carboxyhemoglobin Sodium 131 L D Chloride 96.3 L Carbon Dioxide BUN 19 H Creatinine 0.3 L Glucose 265 H POC Glucose Lactic Acid Calcium Ferritin Lactate Dehydrogenase 768 H Troponin T C-Reactive Protein Total Protein Albumin Triglycerides HDL Cholesterol Arterial Blood Glucose Arterial Blood Ionized Calcium Ur Specific [place] Coronavirus (PCR) 03/14/21 03/14/21 03/14/21 08:35 11:49 16:50 WBC RBC Hgb Hct RDW Plt Count Seg Neuts % (Manual) Lymphocytes % (Manual) Nucleated RBC % Seg Neutrophils # Man Lymphocytes # (Manual) Monocytes # (Manual) PT INR APTT D-Dimer Heparin Anti-Xa Level ABG pH 7.518 H POC ABG pCO2 POC ABG pO2 ABG pO2 ABG O2 Saturation ABG Base Excess ABG Hemoglobin 11.0 L ABG Oxyhemoglobin ABG Sodium 130.5 L ABG Potassium ABG Chloride 95.0 L ABG Glucose 325 H Oxyhemoglobin Carboxyhemoglobin Sodium Chloride Carbon Dioxide BUN Creatinine Glucose POC Glucose 256 H Lactic Acid Calcium Ferritin 209.5 H Lactate Dehydrogenase Troponin T C-Reactive Protein Total Protein Albumin Triglycerides HDL Cholesterol Arterial Blood Glucose 325 H Arterial Blood Ionized Calcium 4.5 L Ur Specific [place] Coronavirus (PCR) 03/14/21 03/14/21 03/14/21 18:18 19:39 22:05 WBC RBC Hgb Hct RDW Plt Count Seg Neuts % (Manual) Lymphocytes % (Manual) Nucleated RBC % Seg Neutrophils # Man Lymphocytes # (Manual) Monocytes # (Manual) PT INR APTT D-Dimer Heparin Anti-Xa Level 0.19 L ABG pH POC ABG pCO2 POC ABG pO2 ABG pO2 ABG O2 Saturation ABG Base Excess ABG Hemoglobin ABG Oxyhemoglobin ABG Sodium ABG Potassium ABG Chloride ABG Glucose Oxyhemoglobin Carboxyhemoglobin Sodium Chloride Carbon Dioxide BUN Creatinine Glucose POC Glucose 299 H 276 H Lactic Acid Calcium Ferritin Lactate Dehydrogenase Troponin T C-Reactive Protein Total Protein Albumin Triglycerides HDL Cholesterol Arterial Blood Glucose Arterial Blood Ionized Calcium Ur Specific [place] Coronavirus (PCR) 03/14/21 03/15/21 03/15/21 23:47 03:10 05:13 WBC RBC Hgb Hct RDW Plt Count Seg Neuts % (Manual) Lymphocytes % (Manual) Nucleated RBC % Seg Neutrophils # Man Lymphocytes # (Manual) Monocytes # (Manual) PT INR APTT D-Dimer Heparin Anti-Xa Level ABG pH 7.515 H POC ABG pCO2 POC ABG pO2 ABG pO2 ABG O2 Saturation ABG Base Excess ABG Hemoglobin 11.0 L ABG Oxyhemoglobin ABG Sodium 131.4 L ABG Potassium ABG Chloride 95.0 L ABG Glucose 239 H Oxyhemoglobin Carboxyhemoglobin Sodium Chloride Carbon Dioxide BUN Creatinine Glucose POC Glucose 344 H 245 H Lactic Acid Calcium Ferritin Lactate Dehydrogenase Troponin T C-Reactive Protein Total Protein Albumin Triglycerides HDL Cholesterol Arterial Blood Glucose 239 H Arterial Blood Ionized Calcium 4.5 L Ur Specific [place] Coronavirus (PCR) 03/15/21 03/15/21 03/15/21 06:00 11:40 17:07 WBC RBC Hgb Hct RDW Plt Count Seg Neuts % (Manual) Lymphocytes % (Manual) Nucleated RBC % Seg Neutrophils # Man Lymphocytes # (Manual) Monocytes # (Manual) PT INR APTT D-Dimer Heparin Anti-Xa Level ABG pH POC ABG pCO2 POC ABG pO2 ABG pO2 ABG O2 Saturation ABG Base Excess ABG Hemoglobin ABG Oxyhemoglobin ABG Sodium ABG Potassium ABG Chloride ABG Glucose Oxyhemoglobin Carboxyhemoglobin Sodium 136 L Chloride 94.6 L Carbon Dioxide 31 H BUN Creatinine 0.3 L Glucose 227 H POC Glucose 224 H 324 H Lactic Acid Calcium Ferritin Lactate Dehydrogenase Troponin T C-Reactive Protein Total Protein Albumin Triglycerides HDL Cholesterol Arterial Blood Glucose Arterial Blood Ionized Calcium Ur Specific [place] Coronavirus (PCR) 03/15/21 03/16/21 03/16/21 23:42 05:49 07:43 WBC 26.2 H RBC Hgb Hct RDW Plt Count Seg Neuts % (Manual) Lymphocytes % (Manual) Nucleated RBC % Seg Neutrophils # Man Lymphocytes # (Manual) Monocytes # (Manual) PT INR APTT D-Dimer Heparin Anti-Xa Level ABG pH POC ABG pCO2 POC ABG pO2 ABG pO2 ABG O2 Saturation ABG Base Excess ABG Hemoglobin ABG Oxyhemoglobin ABG Sodium ABG Potassium ABG Chloride ABG Glucose Oxyhemoglobin Carboxyhemoglobin Sodium Chloride Carbon Dioxide BUN Creatinine Glucose POC Glucose 278 H 216 H Lactic Acid Calcium Ferritin Lactate Dehydrogenase Troponin T C-Reactive Protein Total Protein Albumin Triglycerides HDL Cholesterol Arterial Blood Glucose Arterial Blood Ionized Calcium Ur Specific [place] Coronavirus (PCR) 0603/16/21 03/16/21 07:43 07:43 07:43 WBC RBC Hgb Hct RDW Plt Count Seg Neuts % (Manual) Lymphocytes % (Manual) Nucleated RBC % Seg Neutrophils # Man Lymphocytes # (Manual) Monocytes # (Manual) PT INR APTT D-Dimer 4124.04 H Heparin Anti-Xa Level 1.69 H ABG pH POC ABG pCO2 POC ABG pO2 ABG pO2 ABG O2 Saturation ABG Base Excess ABG Hemoglobin ABG Oxyhemoglobin ABG Sodium ABG Potassium ABG Chloride ABG Glucose Oxyhemoglobin Carboxyhemoglobin Sodium Chloride Carbon Dioxide 32 H BUN Creatinine 0.4 L Glucose 230 H POC Glucose Lactic Acid Calcium Ferritin Lactate Dehydrogenase 662 H Troponin T C-Reactive Protein Total Protein Albumin Triglycerides HDL Cholesterol Arterial Blood Glucose Arterial Blood Ionized Calcium Ur Specific [place] Coronavirus (PCR) 03/16/21 03/16/21 03/16/21 07:43 11:00 17:06 WBC RBC Hgb Hct RDW Plt Count Seg Neuts % (Manual) Lymphocytes % (Manual) Nucleated RBC % Seg Neutrophils # Man Lymphocytes # (Manual) Monocytes # (Manual) PT INR APTT D-Dimer Heparin Anti-Xa Level 0.78 H ABG pH POC ABG pCO2 POC ABG pO2 ABG pO2 ABG O2 Saturation ABG Base Excess ABG Hemoglobin ABG Oxyhemoglobin ABG Sodium ABG Potassium ABG Chloride ABG Glucose Oxyhemoglobin Carboxyhemoglobin Sodium Chloride Carbon Dioxide BUN Creatinine Glucose POC Glucose 239 H Lactic Acid Calcium Ferritin Lactate Dehydrogenase Troponin T C-Reactive Protein Total Protein Albumin Triglycerides 173 H HDL Cholesterol Arterial Blood Glucose Arterial Blood Ionized Calcium Ur Specific [place] Coronavirus (PCR) 03/16/21 03/16/21 03/17/21 17:07 23:16 00:37 WBC RBC Hgb Hct RDW Plt Count Seg Neuts % (Manual) Lymphocytes % (Manual) Nucleated RBC % Seg Neutrophils # Man Lymphocytes # (Manual) Monocytes # (Manual) PT INR APTT D-Dimer Heparin Anti-Xa Level 1.14 H ABG pH POC ABG pCO2 POC ABG pO2 ABG pO2 ABG O2 Saturation ABG Base Excess ABG Hemoglobin ABG Oxyhemoglobin ABG Sodium ABG Potassium ABG Chloride ABG Glucose Oxyhemoglobin Carboxyhemoglobin Sodium Chloride Carbon Dioxide BUN Creatinine Glucose POC Glucose 315 H 248 H Lactic Acid Calcium Ferritin Lactate Dehydrogenase Troponin T C-Reactive Protein Total Protein Albumin Triglycerides HDL Cholesterol Arterial Blood Glucose Arterial Blood Ionized Calcium Ur Specific [place] Coronavirus (PCR) 03/17/21 03/17/21 03/17/21 05:24 11:29 15:35 WBC RBC Hgb Hct RDW Plt Count Seg Neuts % (Manual) Lymphocytes % (Manual) Nucleated RBC % Seg Neutrophils # Man Lymphocytes # (Manual) Monocytes # (Manual) PT INR APTT D-Dimer Heparin Anti-Xa Level < 0.10 L ABG pH POC ABG pCO2 POC ABG pO2 ABG pO2 ABG O2 Saturation ABG Base Excess ABG Hemoglobin ABG Oxyhemoglobin ABG Sodium ABG Potassium ABG Chloride ABG Glucose Oxyhemoglobin Carboxyhemoglobin Sodium Chloride Carbon Dioxide BUN Creatinine Glucose POC Glucose 170 H 211 H Lactic Acid Calcium Ferritin Lactate Dehydrogenase Troponin T C-Reactive Protein Total Protein Albumin Triglycerides HDL Cholesterol Arterial Blood Glucose Arterial Blood Ionized Calcium Ur Specific [place] Coronavirus (PCR) 03/17/21 03/17/21 03/18/21 17:36 21:58 00:01 WBC RBC Hgb Hct RDW Plt Count Seg Neuts % (Manual) Lymphocytes % (Manual) Nucleated RBC % Seg Neutrophils # Man Lymphocytes # (Manual) Monocytes # (Manual) PT INR APTT D-Dimer Heparin Anti-Xa Level ABG pH POC ABG pCO2 POC ABG pO2 ABG pO2 ABG O2 Saturation ABG Base Excess ABG Hemoglobin ABG Oxyhemoglobin ABG Sodium ABG Potassium ABG Chloride ABG Glucose Oxyhemoglobin Carboxyhemoglobin Sodium Chloride Carbon Dioxide BUN Creatinine Glucose POC Glucose 281 H 187 H 160 H Lactic Acid Calcium Ferritin Lactate Dehydrogenase Troponin T C-Reactive Protein Total Protein Albumin Triglycerides HDL Cholesterol Arterial Blood Glucose Arterial Blood Ionized Calcium Ur Specific [place] Coronavirus (PCR) 03/18/21 03/18/21 03/18/21 03:30 03:30 03:30 WBC 20.0 H RBC 3.63 L Hgb Hct RDW 15.7 H Plt Count Seg Neuts % (Manual) Lymphocytes % (Manual) Nucleated RBC % Seg Neutrophils # Man Lymphocytes # (Manual) Monocytes # (Manual) PT INR APTT D-Dimer 3430.09 H Heparin Anti-Xa Level ABG pH POC ABG pCO2 POC ABG pO2 ABG pO2 ABG O2 Saturation ABG Base Excess ABG Hemoglobin ABG Oxyhemoglobin ABG Sodium ABG Potassium ABG Chloride ABG Glucose Oxyhemoglobin Carboxyhemoglobin Sodium Chloride Carbon Dioxide BUN Creatinine 0.3 L Glucose 145 H POC Glucose Lactic Acid Calcium Ferritin Lactate Dehydrogenase 501 H Troponin T C-Reactive Protein Total Protein Albumin Triglycerides HDL Cholesterol Arterial Blood Glucose Arterial Blood Ionized Calcium Ur Specific [place] Coronavirus (PCR) Chest x-ray: image reviewed Allied health notes reviewed: RT
[2021-03-18] MEDS: TAMSULOSIN 0.4 MG CAP PO SCH (10:17)
[2021-03-18] MEDS: ENOXAPARIN 100 MG/1 ML INJ SUB-Q SCH ×2 (10:17→21:02)
[2021-03-18] MEDS: ZINC SULFATE 220 MG CAP PO SCH (10:19)
[2021-03-18] MEDS: QUEtiapine 100 MG TAB FEEDTUBE SCH ×2 (10:19→21:02)
[2021-03-18] MEDS: SENNOSIDES/DOCUSATE SODIUM 8.6/50 MG TAB FEEDTUBE SCH ×2 (10:19→21:02)
[2021-03-18] MEDS: INSULIN GLARGINE 100 UNITS/ML SUB-Q SCH ×2 (10:19→21:01)
[2021-03-18] MEDS: ASCORBIC ACID 500 MG TAB PO SCH ×2 (10:19→21:02)
[2021-03-18] MEDS: CHOLECALCIFEROL (VIT D3) 5,000 UNIT TAB PO SCH (10:19)
[2021-03-18] MEDS: FAMOTIDINE 20 MG TAB PO SCH ×2 (10:19→21:02)
--- NOTE | 2021-03-18 10:38 | Progress Note ---
<KEITHRALPHDakota - Last Filed: 03/18/21 10:34> Assessment and Plan Assessment and plan: This is a 45-year-old female with no significant past medical history admitted to the hospital service with COVID-19 pneumonia, multiple peripheral bilateral lower lobe pulmonary emboli, septic shock, leukocytosis, hyponatremia, hyp ochloremia, metabolic acidosis, lactic acidosis. COVID-19 pneumonia Septic shock secondary to COVID-19 pneumonia Acute hypoxic respiratory failure Pulmonary embolism Left posterior tibial and peroneal veins DVT Leukocytosis Lactic acidosis (improved) Thrombocytopenia (improved-03/08 HIT NEGATIVE) Oropharyngeal dysphagia Urinary retention Hyperglycemia Acute metabolic encephalopathy Obesity -CCM, infectious disease consulted, appreciate recommendations -03/07 COVID-19 PCR positive -Droplet/aspiration precautions -Steroid therapy -Vitamin C, vitamin D, zinc -S/p remdesivir -S/p Actemra on 03/09/2021 -Antibiotic therapy -Continuous SPO2 monitoring -Wean mechanical ventilation as tolerated, VAP bundle -Pulmonary hygiene -Aspiration precautions -Precedex, fentanyl -Seroquel -Lovenox VTE -Bowel regimen -Flomax for urinary retention -Tube feedings -SSI, Accu-Cheks every 6, long-acting insulin -Trend COVID-19 inflammatory markers, CBC, BMP DVT/GI prophylaxis: Lovenox, PPI Disposition: ICU Lines: PICC pending, IJ TLC to be removed, calabrese The high probability of a clinically significant, sudden or life threatening deterioration of the [pulmonary] system(s) required my full and direct attentio n, intervention and personal management. The aggregate critical care time was [35] minutes. This time is in addition to time spent performing reported procedures but includes the following: [X] Data Review and interpretation [X] Patient assessment and monitoring of vital signs [X] Documentation [X] Medication orders and management History Interval history: This is a 45-year-old female with significant past medical history presented to emergency department on 03/07 complaining of cough, shortness of breath and diarrhea for 3 days prior to arrival. Upon arrival to emergency department patient was found to be in respiratory distress and initial oxygen saturations were said to be in the 50s and patient was placed on a nonrebreather with improvement of oxygen saturations to 7 days. Patient was subsequently intubated in the emergency department and upon review patient did not receive COVID-19 vaccination. Work-up in the emergency department revealed bilateral pulmonary infiltrates on CXR, leukocytosis of 31,000, hyperglycemia with a blood glucose of 301, elevated D-dimer greater than 10,000., CTA chest showed multiple peripheral bilateral lower lobe pulmonary emboli. Patient was hypotensive in the emergency department and fluid resuscitated and started on vasopressors. Patient will be admitted to the hospital service with COVID-19 PUI, septic shock secondary to pneumonia, pulmonary emboli and acute hypoxic respiratory failure. [facility] [place] and infectious disease were consulted. Patient was started on heparin drip. 03/08: New issues: Thrombocytosis question if this is secondary to HIT. We will send out HIT panel. Monitor platelets. Continue heparin drip at this time. Await pulmonary and ID input. 03/09: Patient noted to have Covid positive pneumonia ID input is appreciated patient on dexamethasone for complete 10 days of therapy now started on remdesivir due to hypoxia also to complete 5 days therapy and Actemra a one- time. We will continue to monitor -Obtain q48-72h inflammatory markers - ferritin, Ddimer, CRP, LDH -Continue ceftriaxone 2 gm IV qday and azithromycin 500 mg PO qday for 5 days given elevated procal -Anticoagulation per hospital protocol -Proning as able I also requested a stat CBC to further evaluate thrombocytosis that was noted yesterday. I called maría elena Serafinmark Hernandez to update and got voicemail left a message. I also called James David but his phone is unable to accept messages at this time. 03/10: Possible ileus versus bowel obstruction. Will obtain KUB. Continue to hold tube feeds at this time. We will also obtain GI consult if no resolution. Also patient noted to have urinary retention we will proceed with placing a Calabrese catheter. She does follow commands some when off sedation but gets easily agitated. Continue ICU management at this point. 03/11: Blood sugar still elevated adjusted nighttime insulin for better coverage. KUB concerning for radiopaque object possible tablet. Was not present on 03 08. We will repeat a KUB in a.m. to see if resolution versus ileus. Continue current management for COVID-19. Continue heparin drip for noted pulmonary embolism. Platelets actually improved despite being on heparin doubt HIT. Patient still requires critical care monitoring. Altered mental status still present. 03/12: Worsening leukocytosis this could be secondary to steroids. We will give Lasix today in addition to empiric vitamins. Chest x-ray shows worsening opacities will monitor closely. Continue full mechanical ventilation and res traints for safety. 03/13: At the time my examination patient was on fentanyl at 3 mcg, heparin drip, pressure control ventilation with a rate of 20, pressure support of 20, FiO2 of 35% and PEEP of 12 and ECMO blood change patient ventilation to assist control tidal volume 450, rate of 14, PEEP of 10 in the morning. RN reported the patient did not have a BM since admission and [facility] [place] ordered mag citrate x1. 03/14: SBT trial per [facility] [place], leukocytosis and D-dimer is improving. Patient is hyperglycemic and long-acting insulin dosage has been increased. Patient has pseudohyponatremia today. Nurse reported that patient central line was not drawing back blood and Cathflo was ordered. No acute events reported overnight. 03/15: Patient is severely agitated and SBT trial was not attempted today. Promise ent remains hyperglycemic and insulin has been adjusted accordingly. [facility] [place] will start the patient on Seroquel and attempt to wean propofol. Patient was hypotensive after sedation was increased and she received a 500 mL LR bolus today. We will obtain the ECG in the a.m. to assess QTc. RN to attempt to obtain PIV 03/16: Patient still has moments of severe agitation and her Seroquel will be increased today. Patient's urinary catheter was replaced due to retention patient has been started on Flomax. At the time my examination patient patient was sedated on propofol and fentanyl on AC. Patient still has leukocytosis and hyperglycemia. Insulin increased. We will obtain triglyceride level in the morning. [facility] [place] [place] opted to removal otis and replace CVL with PICC. 03/17: This morning the time of examination patient sedated on propofol and fentanyl assist control ventilation tidal volume 450, rate of 14, PEEP of 8 and 35% FiO2. EKG this a.m. showed a QTC of 407. Patient was able to follow co mmands at time of examination. Patient will be started on precedex and heparin gtt changed to lovenox. Lantus increased 03/18: This morning patient was sedated with propofol, fentanyl, precedex gtt. RT to attempt SBT and will obtain an ABG after. Lantus decreased as steroids ended today. CCM to give one time dose of lasix. Hospitalist Physical - Constitutional Vitals: Temp Pulse Resp BP Pulse Ox 97.6 F 102 H 25 H 148/69 98 03/18/21 04:00 03/18/21 09:00 03/18/21 09:00 03/18/21 09:00 03/18/21 09:00 General appearance: Present: well-nourished, obese, other (Intubated and sedated ) - EENT Eyes: Present: PERRL, EOM intact ENT: clear oral mucosa - Respiratory Respiratory effort: normal Respiratory: bilateral: diminished - Cardiovascular Rhythm: regular Heart Sounds: Present: S1 & S2. Absent: systolic murmur, diastolic murmur - Extremities Extremities: no ischemia, pulses intact, pulses symmetrical, normal temperature, normal color, Full ROM Peripheral Pulses: within normal limits - Abdominal General gastrointestinal: soft, non-tender, non-distended, normal bowel sounds - Integumentary Integumentary: Present: warm, dry - Psychiatric Psychiatric: cooperative - Neurologic Neurologic: moves all extremities - Allied Health Allied health notes reviewed: nursing, ST HEART Score - HEART Score Troponin: Troponin T 0.085 ng/mL (0.00-0.029) H 03/07/21 20:31 Results - Labs CBC & Chem 7: 03/18/21 03:30 03/18/21 03:30 Labs: Laboratory Last Values WBC 20.0 K/mm3 (4.5-11.0) H 03/18/21 03:30 RBC 3.63 M/mm3 (3.65-5.03) L 03/18/21 03:30 Hgb 10.5 gm/dl (10.1-14.3) 03/18/21 03:30 Hct 31.8 % (30.3-42.9) 03/18/21 03:30 MCV 87 fl (79-97) 03/18/21 03:30 MCH 29 pg (28-32) 03/18/21 03:30 MCHC 33 % (30-34) 03/18/21 03:30 RDW 15.7 % (13.2-15.2) H 03/18/21 03:30 Plt Count 278 K/mm3 (140-440) 03/18/21 03:30 Lymph % (Auto) Health Center Assistant 03/07/21 21:04 [place] % (Auto) Health Center Assistant 03/07/21 21:04 Eos % (Auto) Health Center Assistant 03/07/21 21:04 Baso % (Auto) Health Center Assistant 03/07/21 21:04 Lymph # (Auto) Health Center Assistant 03/07/21 21:04 [place] # (Auto) Health Center Assistant 03/07/21 21:04 Eos # (Auto) Health Center Assistant 03/07/21 21:04 Baso # (Auto) Health Center Assistant 03/07/21 21:04 Add Manual Diff Complete 03/10/21 01:12 Total Counted 100 03/10/21 01:12 Seg Neutrophils % Health Center Assistant 03/10/21 01:12 Seg Neuts % (Manual) 89.0 % (40.0-70.0) H 03/10/21 01:12 Band Neutrophils % 11.0 % 03/09/21 12:10 Lymphocytes % (Manual) 6.0 % (13.4-35.0) L 03/10/21 01:12 Monocytes % (Manual) 5.0 % (0.0-7.3) 03/10/21 01:12 Metamyelocytes % 1.0 % 03/09/21 12:10 Myelocytes % 1.0 % 03/09/21 12:10 Nucleated RBC % Not Reportable 03/10/21 01:12 Seg Neutrophils # Health Center Assistant 03/07/21 21:04 Seg Neutrophils # Man 20.1 K/mm3 (1.8-7.7) H 03/10/21 01:12 Band Neutrophils # 0.0 K/mm3 03/10/21 01:12 Lymphocytes # (Manual) 1.4 K/mm3 (1.2-5.4) 03/10/21 01:12 Abs React Lymphs (Man) 0.0 K/mm3 03/10/21 01:12 Monocytes # (Manual) 1.1 K/mm3 (0.0-0.8) H 03/10/21 01:12 Eosinophils # (Manual) 0.0 K/mm3 (0.0-0.4) 03/10/21 01:12 Basophils # (Manual) 0.0 K/mm3 (0.0-0.1) 03/10/21 01:12 Metamyelocytes # 0.0 K/mm3 03/10/21 01:12 Myelocytes # 0.0 K/mm3 03/10/21 01:12 Promyelocytes # 0.0 K/mm3 03/10/21 01:12 Blast Cells # 0.0 K/mm3 03/10/21 01:12 WBC Morphology Not Reportable 03/10/21 01:12 Hypersegmented Neuts Not Reportable 03/10/21 01:12 Hyposegmented Neuts Not Reportable 03/10/21 01:12 Hypogranular Neuts Not Reportable 03/10/21 01:12 Smudge Cells Not Reportable 03/10/21 01:12 Toxic Granulation Not Reportable 03/10/21 01:12 Toxic Vacuolation Not Reportable 03/10/21 01:12 Dohle Bodies Not Reportable 03/10/21 01:12 Pelger-Huet Anomaly Not Reportable 03/10/21 01:12 Jarrett Rods Not Reportable 03/10/21 01:12 Platelet Estimate Not Reportable 03/10/21 01:12 Clumped Platelets Not Reportable 03/10/21 01:12 Plt Clumps, EDTA Not Reportable 03/10/21 01:12 Large Platelets Not Reportable 03/10/21 01:12 Giant Platelets Not Reportable 03/10/21 01:12 Platelet Satelliting Not Reportable 03/10/21 01:12 Plt Morphology Comment Not Reportable 03/10/21 01:12 RBC Morphology Normal 03/10/21 01:12 Dimorphic RBCs Not Reportable 03/10/21 01:12 Polychromasia Not Reportable 03/10/21 01:12 Hypochromasia Not Reportable 03/10/21 01:12 Poikilocytosis Not Reportable 03/10/21 01:12 Anisocytosis Not Reportable 03/10/21 01:12 Microcytosis Not Reportable 03/10/21 01:12 Macrocytosis Not Reportable 03/10/21 01:12 Spherocytes Not Reportable 03/10/21 01:12 Pappenheimer Bodies Not Reportable 03/10/21 01:12 Sickle Cells Not Reportable 03/10/21 01:12 Target Cells Not Reportable 03/10/21 01:12 Tear Drop Cells Not Reportable 03/10/21 01:12 Ovalocytes Not Reportable 03/10/21 01:12 Helmet Cells Not Reportable 03/10/21 01:12 [place] Bodies Not Reportable 03/10/21 01:12 [place] Rings Not Reportable 03/10/21 01:12 Brant Cells Not Reportable 03/10/21 01:12 Bite Cells Not Reportable 03/10/21 01:12 Crenated Cell Not Reportable 03/10/21 01:12 Elliptocytes Not Reportable 03/10/21 01:12 Acanthocytes (Spur) Not Reportable 03/10/21 01:12 Rouleaux Not Reportable 03/10/21 01:12 Hemoglobin C Crystals Not Reportable 03/10/21 01:12 Schistocytes Not Reportable 03/10/21 01:12 Malaria parasites Not Reportable 03/10/21 01:12 Joss Bodies Not Reportable 03/10/21 01:12 Hem Pathologist Commnt No 03/10/21 01:12 PT 18.5 Sec. (12.2-14.9) H 03/08/21 07:55 INR 1.49 (0.87-1.13) H 03/08/21 07:55 APTT 113.5 Sec. (24.2-36.6) H* 03/08/21 07:55 D-Dimer 3430.09 ng/mlDDU (0-234) H 03/18/21 03:30 Heparin Anti-Xa Level < 0.10 U.I./ml (0.3-0.7) L 03/17/21 15:35 Heparin Anti-Xa, Unfract Negative (Negative) 03/08/21 13:00 ABG pH 7.515 (7.320-7.450) H 03/15/21 03:10 POC ABG pCO2 35.4 mmHg (32.0-48.0) 03/15/21 03:10 ABG pCO2 39.5 mm Hg 03/07/21 Unknown POC ABG pO2 97.4 mmHg (83-108) 03/15/21 03:10 ABG pO2 62.6 mm Hg (80.0-90.0) L 03/07/21 Unknown POC ABG HCO3 27.9 03/15/21 03:10 ABG HCO3 20.7 mmol/L (20.0-26.0) 03/07/21 Unknown ABG O2 Saturation 97.7 (0-100) 03/15/21 03:10 ABG O2 Content 15.1 (0.0-44) 03/07/21 Unknown POC ABG Base Excess 4.9 03/15/21 03:10 ABG Base Excess -4.7 mmol/L (-2.0-3.0) L 03/07/21 Unknown ABG Hemoglobin 11.0 (12.0-17.5) L 03/15/21 03:10 ABG Oxyhemoglobin 96.9 (94-98) 03/15/21 03:10 ABG Carboxyhemoglobin 1.4 % (0.0-5.0) 03/07/21 Unknown ABG Methemoglobin 0.3 (0.0-1.5) 03/15/21 03:10 ABG Sodium 131.4 mmol/L (136.0-145.0) L 03/15/21 03:10 ABG Potassium 3.5 mmol/L (3.40-4.50) 03/15/21 03:10 ABG Chloride 95.0 mmol/L (98-107) L 03/15/21 03:10 ABG Glucose 239 mg/dL (65-95) H 03/15/21 03:10 Oxyhemoglobin 87.3 % (95.0-99.0) L 03/07/21 Unknown Carboxyhemoglobin 0.5 (0.5-1.5) 03/15/21 03:10 FiO2 100 % 03/07/21 Unknown FiO2 % 35.0 03/15/21 03:10 Sodium 137 mmol/L (137-145) 03/18/21 03:30 Potassium 3.8 mmol/L (3.6-5.0) 03/18/21 03:30 Chloride 98.6 mmol/L (98-107) 03/18/21 03:30 Carbon Dioxide 29 mmol/L (22-30) 03/18/21 03:30 Anion Gap 13 mmol/L 03/18/21 03:30 BUN 15 mg/dL (7-17) 03/18/21 03:30 Creatinine 0.3 mg/dL (0.6-1.2) L 03/18/21 03:30 Estimated GFR > 60 ml/min 03/18/21 03:30 BUN/Creatinine Ratio 50 % 03/18/21 03:30 Glucose 145 mg/dL (65-100) H 03/18/21 03:30 POC Glucose 160 mg/dL (70-105) H 03/18/21 00:01 Lactic Acid 1.90 mmol/L (0.7-2.0) 03/10/21 01:12 Calcium 9.1 mg/dL (8.4-10.2) 03/18/21 03:30 Ferritin 110.2 ng/mL (10.0-200.0) 03/18/21 03:30 Total Bilirubin 0.30 mg/dL (0.1-1.2) 03/11/21 04:40 AST 19 units/L (5-40) 03/11/21 04:40 ALT 12 units/L (7-56) 03/11/21 04:40 Alkaline Phosphatase 107 units/L (35-129) 03/11/21 04:40 Lactate Dehydrogenase 501 units/L (91-180) H 03/18/21 03:30 Troponin T 0.085 ng/mL (0.00-0.029) H 03/07/21 20:31 C-Reactive Protein 0.30 mg/dL (0.00-1.30) 03/18/21 03:30 Total Protein 6.1 g/dL (6.3-8.2) L 03/11/21 04:40 Albumin 3.2 g/dL (3.9-5) L 03/11/21 04:40 Albumin/Globulin Ratio 1.1 % 03/11/21 04:40 Triglycerides 136 mg/dL (2-149) 03/17/21 02:00 Cholesterol 141 mg/dL (50-199) 03/07/21 20:31 LDL Cholesterol Direct 72 mg/dL (50-130) 03/07/21 20:31 HDL Cholesterol 34 mg/dL (40-59) L 03/07/21 20:31 Cholesterol/HDL Ratio 4.14 % 03/07/21 20:31 Serotonin Release Assay See scanned result 03/08/21 13:00 Procalcitonin 0.20 ng/mL (<0.15) 03/13/21 08:08 HCG, Qual Negative (Negative) 03/07/21 22:48 Arterial Blood Glucose 239 mg/dL (65-95) H 03/15/21 03:10 Arterial Blood Ionized Calcium 4.5 mg/dL (4.6-5.3) L 03/15/21 03:10 Urine Color Yellow (Yellow) 03/08/21 05:51 Urine Turbidity Clear (Clear) 03/08/21 05:51 Urine pH 6.0 (5.0-7.0) 03/08/21 05:51 Ur Specific [place] > 1.050 (1.003-1.030) H 03/08/21 05:51 Urine Protein 100 mg/dl mg/dL (Negative) 03/08/21 05:51 Urine Glucose (UA) Neg mg/dL (Negative) 03/08/21 05:51 Urine Ketones Neg mg/dL (Negative) 03/08/21 05:51 Urine Blood Neg (Negative) 03/08/21 05:51 Urine Nitrite Neg (Negative) 03/08/21 05:51 Urine Bilirubin Neg (Negative) 03/08/21 05:51 Urine Urobilinogen 4.0 mg/dL (<2.0) 03/08/21 05:51 Ur Leukocyte Esterase Neg (Negative) 03/08/21 05:51 Urine WBC (Auto) 5.0 /HPF (0.0-6.0) 03/08/21 05:51 Urine RBC (Auto) 5.0 /HPF (0.0-6.0) 03/08/21 05:51 U Epithel Cells (Auto) < 1.0 /HPF (0-13.0) 03/08/21 05:51 Urine Bacteria (Auto) 1+ /HPF (Negative) 03/08/21 05:51 Urine Mucus Few /HPF 03/08/21 05:51 Heparin-induced Plt Ab Negative (Negative) 03/08/21 13:00 UF Heparin High Dose 0 % Release 03/08/21 13:00 JESSY UFH Low Dose 0.1 0 % Release 03/08/21 13:00 JESSY UFH Low Dose 0.5 0 % Release 03/08/21 13:00 Coronavirus (PCR) Positive (Negative) A 03/07/21 Unknown Calabrese/IV: Voiding Method Indwelling Catheter Active Medications - Current Medications Current Medications: Generic Name Dose Route Start Last Admin Trade Name Freq PRN Reason Stop Dose Admin Acetaminophen 650 mg 03/10/21 00:30 Acetaminophen 650 Mg Rect Supp RI Q4H PRN Pain, Mild (1-3) Lipase/Protease/Amylase 1 each 03/08/21 13:40 Lipase 10,500/Protease 25,000/Amylase 43,750 (Units) Dr Cap FEEDTUBE PRN PRN For Clogged Feeding Tube Ascorbic Acid 1,000 mg 03/12/21 10:00 03/18/21 10:19 Ascorbic Acid 500 Mg Tab PO 1,000 mg BID MARCO ANTONIO Administration Cholecalciferol 5,000 unit 03/12/21 10:00 03/18/21 10:19 Cholecalciferol (Vit D3) 5,000 Unit Tab PO 5,000 unit DAILY MARCO ANTONIO Administration Dextrose 50 ml 03/07/21 22:57 Dextrose 50% In Water (25gm) 50 Ml Syringe IV Q30MIN PRN Hypoglycemia Protocol Enoxaparin Sodium 100 mg 03/17/21 14:00 03/18/21 10:17 Enoxaparin 100 Mg/1 Ml Inj SUB-Q 100 mg Q12HR MARCO ANTONIO Administration Famotidine 20 mg 03/13/21 10:00 03/18/21 10:19 Famotidine 20 Mg Tab PO 20 mg BID MARCO ANTONIO Administration Fentanyl 50 mcg 03/07/21 21:20 03/17/21 12:16 Fentanyl 100 Mcg/2 Ml Inj IV 50 mcg Q10MIN PRN Administration ANALGESIA Hydrophilic Ointment 1 applic 03/08/21 12:42 Lip Therapy Vaseline TP Q2HR PRN Dry Lips Propofol 1,000 mg in 100 mls @ 3.084 mls/hr 03/07/21 21:00 03/18/21 08:42 Diprivan 10 Mg/Ml IV 0 mcg/kg/min TITR MARCO ANTONIO 0 mls/hr Titration Protocol 5 MCG/KG/MIN Fentanyl Citrate 2,000 mcg in 100 mls @ 5.14 mls/hr 03/07/21 22:00 03/18/21 08:42 Fentanyl Drip Premix IV 0 mcg/kg/hr TITR MARCO ANTONIO 0 mls/hr Titration Protocol 1 MCG/KG/HR Norepinephrine 4 mg in 250 mls @ 7.5 mls/hr 03/07/21 23:45 03/08/21 08:15 Levophed Drip 4 Mg/Ns 250 Ml IV 0 mcg/min TITR MARCO ANTONIO 0 mls/hr Titration Protocol 2 MCG/MIN Dexmedetomidine HCl 400 mcg/ 104 mls @ 5.33 mls/hr 03/17/21 12:00 03/18/21 10:15 Sodium Chloride IV 0.3 mcg/kg/hr TITRATE MARCO ANTONIO 7.995 mls/hr Titration Protocol 0.2 MCG/KG/HR Insulin Glargine 25 units 03/16/21 10:00 03/18/21 10:19 Insulin Glargine 100 Units/Ml SUB-Q 25 units DAILY MARCO ANTONIO Administration Insulin Glargine 20 units 03/18/21 22:00 Insulin Glargine 100 Units/Ml SUB-Q QHS MARCO ANTONIO Insulin Human Lispro 0 unit 03/08/21 12:00 03/18/21 00:12 Insulin Lispro 100 Unit/Ml SUB-Q 3 unit Q6HR MARCO ANTONIO Administration Protocol Magnesium Hydroxide 30 ml 03/07/21 22:57 03/13/21 10:13 Magnesium Hydroxide (Mom) Oral Liqd Udc PO 30 ml Q4H PRN Administration Constipation Morphine Sulfate 2 mg 03/07/21 22:57 03/09/21 21:29 Morphine 2 Mg/1 Ml Inj IV 2 mg Q4H PRN Administration Pain, Moderate (4-6) Multi-Ingred Cream/Lotion/Oil/Oint 1 applic 03/08/21 12:42 Mineral Oil/Petrolatum, White Ophth Oint 3.5 Gm OU Q4HR PRN Dry Eye(s) Ondansetron HCl 4 mg 03/07/21 22:57 Ondansetron 4 Mg/2 Ml Inj IV Q8H PRN Nausea And Vomiting Quetiapine Fumarate 300 mg 03/16/21 17:33 03/18/21 10:19 Quetiapine 100 Mg Tab FEEDTUBE 300 mg BID MARCO ANTONIO Administration Senna/Docusate Sodium 1 tab 03/08/21 22:00 03/18/21 10:19 Sennosides/Docusate Sodium 8.6/50 Mg Tab FEEDTUBE 1 tab BID MARCO ANTONIO Administration Simple Syrup 15 ml 03/08/21 13:40 Simple Syrup 15 Ml FEEDTUBE PRN PRN Hypoglycemia Simple Syrup 30 ml 03/08/21 13:40 Simple Syrup 15 Ml FEEDTUBE PRN PRN Hypoglycemia Sodium Bicarbonate 325 mg 03/08/21 13:40 Sodium Bicarbonate 325 Mg Tab FEEDTUBE PRN PRN For Clogged Feeding Tube Sodium Chloride 10 ml 03/08/21 10:00 03/18/21 10:21 Sodium Chloride 0.9% 10 Ml Flush Syringe IV 10 ml BID MARCO ANTONIO Administration Sodium Chloride 10 ml 03/07/21 22:57 Sodium Chloride 0.9% 10 Ml Flush Syringe IV PRN PRN LINE FLUSH Tamsulosin HCl 0.8 mg 03/16/21 17:33 03/18/21 10:17 Tamsulosin 0.4 Mg Cap PO 0.8 mg QDAY MARCO ANTONIO Administration Zinc Sulfate 220 mg 03/12/21 10:00 03/18/21 10:19 Zinc Sulfate 220 Mg Cap PO 220 mg QDAY MARCO ANTONIO Administration Nutrition/Malnutrition Assess - Dietary Evaluation Nutrition/Malnutrition Findings: Nutrition Notes Start: 03/08/21 12:27 Freq: Status: Active Protocol: Document 03/17/21 11:02 CW (Rec: 03/17/21 11:10 CW [email or web address]) Nutrition Notes Initial or Follow up Reassessment Current Diagnosis Sepsis,Respiratory Failure Other Pertinent Diagnosis Pneu, r/o COVID-19, pulmonary embolism Current Diet Vital AF at 50 ml/hr Labs/Tests 03/16 BG 230 Pertinent Medications Propofol at 15.42ml/hr ( provides 407 kcal) Decadron Lantus Height 5 ft Weight 102.5 kg [place] Body Weight (kg) 45.45 BMI 44.1 Weight Status Morbidly Obese Subjective/Other Information F/U for TF tolerance. TF running at goal. No reports of TF intolerance. Appears taht propofol is being weaned down. Will adjust TF accordingly next assessment if propofol continues at high rate Percent of energy/protein needs met: 100%/79% Burn Absent Trauma Absent GI Symptoms None Current % PO Negligible Minimum of two criteria Yes Fluid Accumulation Mild (non-severe) #1 Nutrition Diagnosis Inadequate oral intake Diagnosis Progress(for reassessment Continues documentation) Is patient on ventilator? Yes Is Patient Ambulatory and/or Out of Bed No REE-([facility]-confined to bed) 1901.088 Kcal/Kg value to use for calculation 14 Approximate Energy Requirements Using 1435 kcal/Kg Calculation Used for Recommendations Kcal/kg Additional Notes Pro needs up to 2.5g/kg IBW: 114g/day Fluid needs 1ml/kcal Nutrition Intervention Change Diet Order: Contiue Nutrition Support: Vital AF 1.2 at 50ml/hr with 80ml water flush q4h. Kcal 1,440 Protein (gm) 90 Fluid (mL) 937 Goal #1 TF tolerance Goal #2 TF (at goal rate) to meet at least 75% energy and pro needs Anticipated Discharge Needs: Unable to determine at this time Follow-Up By: 03/20/21 Additional Comments F/U for stable TF; BG levels, propofol status <GIACOMO ROSE - Last Filed: 03/18/21 14:07> Assessment and Plan Assessment and plan: Agree with assessment and plan as outlined by nurse practitioner as above. I personally examined the patient, her eyes were open, when asking questions this morning, to some extent she was shaking her head. Patient continues to be on the vent, on CPAP trials at this time. Insulin has been readjusted. Hospitalist Physical - Constitutional Vitals: Temp Pulse Resp BP Pulse Ox 98.9 F 69 22 106/60 100 03/18/21 12:00 03/18/21 13:00 03/18/21 13:00 03/18/21 13:00 03/18/21 13:00 HEART Score - HEART Score Troponin: Troponin T 0.085 ng/mL (0.00-0.029) H 03/07/21 20:31 Results - Labs CBC & Chem 7: 03/18/21 03:30 03/18/21 03:30 Labs: Laboratory Last Values WBC 20.0 K/mm3 (4.5-11.0) H 03/18/21 03:30 RBC 3.63 M/mm3 (3.65-5.03) L 03/18/21 03:30 Hgb 10.5 gm/dl (10.1-14.3) 03/18/21 03:30 Hct 31.8 % (30.3-42.9) 03/18/21 03:30 MCV 87 fl (79-97) 03/18/21 03:30 MCH 29 pg (28-32) 03/18/21 03:30 MCHC 33 % (30-34) 03/18/21 03:30 RDW 15.7 % (13.2-15.2) H 03/18/21 03:30 Plt Count 278 K/mm3 (140-440) 03/18/21 03:30 Lymph % (Auto) Health Center Assistant 03/07/21 21:04 [place] % (Auto) Health Center Assistant 03/07/21 21:04 Eos % (Auto) Health Center Assistant 03/07/21 21:04 Baso % (Auto) Health Center Assistant 03/07/21 21:04 Lymph # (Auto) Health Center Assistant 03/07/21 21:04 [place] # (Auto) Health Center Assistant 03/07/21 21:04 Eos # (Auto) Health Center Assistant 03/07/21 21:04 Baso # (Auto) Health Center Assistant 03/07/21 21:04 Add Manual Diff Complete 03/10/21 01:12 Total Counted 100 03/10/21 01:12 Seg Neutrophils % Health Center Assistant 03/10/21 01:12 Seg Neuts % (Manual) 89.0 % (40.0-70.0) H 03/10/21 01:12 Band Neutrophils % 11.0 % 03/09/21 12:10 Lymphocytes % (Manual) 6.0 % (13.4-35.0) L 03/10/21 01:12 Monocytes % (Manual) 5.0 % (0.0-7.3) 03/10/21 01:12 Metamyelocytes % 1.0 % 03/09/21 12:10 Myelocytes % 1.0 % 03/09/21 12:10 Nucleated RBC % Not Reportable 03/10/21 01:12 Seg Neutrophils # [facility] 03/07/21 21:04 Seg Neutrophils # Man 20.1 K/mm3 (1.8-7.7) H 03/10/21 01:12 Band Neutrophils # 0.0 K/mm3 03/10/21 01:12 Lymphocytes # (Manual) 1.4 K/mm3 (1.2-5.4) 03/10/21 01:12 Abs React Lymphs (Man) 0.0 K/mm3 03/10/21 01:12 Monocytes # (Manual) 1.1 K/mm3 (0.0-0.8) H 03/10/21 01:12 Eosinophils # (Manual) 0.0 K/mm3 (0.0-0.4) 03/10/21 01:12 Basophils # (Manual) 0.0 K/mm3 (0.0-0.1) 03/10/21 01:12 Metamyelocytes # 0.0 K/mm3 03/10/21 01:12 Myelocytes # 0.0 K/mm3 03/10/21 01:12 Promyelocytes # 0.0 K/mm3 03/10/21 01:12 Blast Cells # 0.0 K/mm3 03/10/21 01:12 WBC Morphology Not Reportable 03/10/21 01:12 Hypersegmented Neuts Not Reportable 03/10/21 01:12 Hyposegmented Neuts Not Reportable 03/10/21 01:12 Hypogranular Neuts Not Reportable 03/10/21 01:12 Smudge Cells Not Reportable 03/10/21 01:12 Toxic Granulation Not Reportable 03/10/21 01:12 Toxic Vacuolation Not Reportable 03/10/21 01:12 Dohle Bodies Not Reportable 03/10/21 01:12 Pelger-Huet Anomaly Not Reportable 03/10/21 01:12 Jarrett Rods Not Reportable 03/10/21 01:12 Platelet Estimate Not Reportable 03/10/21 01:12 Clumped Platelets Not Reportable 03/10/21 01:12 Plt Clumps, EDTA Not Reportable 03/10/21 01:12 Large Platelets Not Reportable 03/10/21 01:12 Giant Platelets Not Reportable 03/10/21 01:12 Platelet Satelliting Not Reportable 03/10/21 01:12 Plt Morphology Comment Not Reportable 03/10/21 01:12 RBC Morphology Normal 03/10/21 01:12 Dimorphic RBCs Not Reportable 03/10/21 01:12 Polychromasia Not Reportable 03/10/21 01:12 Hypochromasia Not Reportable 03/10/21 01:12 Poikilocytosis Not Reportable 03/10/21 01:12 Anisocytosis Not Reportable 03/10/21 01:12 Microcytosis Not Reportable 03/10/21 01:12 Macrocytosis Not Reportable 03/10/21 01:12 Spherocytes Not Reportable 03/10/21 01:12 Pappenheimer Bodies Not Reportable 03/10/21 01:12 Sickle Cells Not Reportable 03/10/21 01:12 Target Cells Not Reportable 03/10/21 01:12 Tear Drop Cells Not Reportable 03/10/21 01:12 Ovalocytes Not Reportable 03/10/21 01:12 Helmet Cells Not Reportable 03/10/21 01:12 [place] Bodies Not Reportable 03/10/21 01:12 [place] Rings Not Reportable 03/10/21 01:12 [place] Cells Not Reportable 03/10/21 01:12 Bite Cells Not Reportable 03/10/21 01:12 Crenated Cell Not Reportable 03/10/21 01:12 Elliptocytes Not Reportable 03/10/21 01:12 Acanthocytes (Spur) Not Reportable 03/10/21 01:12 Rouleaux Not Reportable 03/10/21 01:12 Hemoglobin C Crystals Not Reportable 03/10/21 01:12 Schistocytes Not Reportable 03/10/21 01:12 Malaria parasites Not Reportable 03/10/21 01:12 Joss Bodies Not Reportable 03/10/21 01:12 Hem Pathologist Commnt No 03/10/21 01:12 PT 18.5 Sec. (12.2-14.9) H 03/08/21 07:55 INR 1.49 (0.87-1.13) H 03/08/21 07:55 APTT 113.5 Sec. (24.2-36.6) H* 03/08/21 07:55 D-Dimer 3430.09 ng/mlDDU (0-234) H 03/18/21 03:30 Heparin Anti-Xa Level < 0.10 U.I./ml (0.3-0.7) L 03/17/21 15:35 Heparin Anti-Xa, Unfract Negative (Negative) 03/08/21 13:00 ABG pH 7.445 pH Units (7.350-7.450) 03/18/21 10:40 POC ABG pCO2 35.4 mmHg (32.0-48.0) 03/15/21 03:10 ABG pCO2 41.0 mm Hg 03/18/21 10:40 POC ABG pO2 97.4 mmHg (83-108) 03/15/21 03:10 ABG pO2 65.2 mm Hg (80.0-90.0) L 03/18/21 10:40 POC ABG HCO3 27.9 03/15/21 03:10 ABG HCO3 27.5 mmol/L (20.0-26.0) H 03/18/21 10:40 ABG O2 Saturation 93.6 % (95.0-99.0) L 03/18/21 10:40 ABG O2 Content 14.7 (0.0-44) 03/18/21 10:40 POC ABG Base Excess 4.9 03/15/21 03:10 ABG Base Excess 3.2 mmol/L (-2.0-3.0) H 03/18/21 10:40 ABG Hemoglobin 11.4 gm/dl (12.0-16.0) L 03/18/21 10:40 ABG Oxyhemoglobin 96.9 (94-98) 03/15/21 03:10 ABG Carboxyhemoglobin 1.7 % (0.0-5.0) 03/18/21 10:40 ABG Methemoglobin 0.5 % (0.0-1.5) 03/18/21 10:40 ABG Sodium 131.4 mmol/L (136.0-145.0) L 03/15/21 03:10 ABG Potassium 3.5 mmol/L (3.40-4.50) 03/15/21 03:10 ABG Chloride 95.0 mmol/L (98-107) L 03/15/21 03:10 ABG Glucose 239 mg/dL (65-95) H 03/15/21 03:10 Oxyhemoglobin 91.5 % (95.0-99.0) L 03/18/21 10:40 Carboxyhemoglobin 0.5 (0.5-1.5) 03/15/21 03:10 FiO2 35 % 03/18/21 10:40 FiO2 % 35.0 03/15/21 03:10 Sodium 137 mmol/L (137-145) 03/18/21 03:30 Potassium 3.8 mmol/L (3.6-5.0) 03/18/21 03:30 Chloride 98.6 mmol/L (98-107) 03/18/21 03:30 Carbon Dioxide 29 mmol/L (22-30) 03/18/21 03:30 Anion Gap 13 mmol/L 03/18/21 03:30 BUN 15 mg/dL (7-17) 03/18/21 03:30 Creatinine 0.3 mg/dL (0.6-1.2) L 03/18/21 03:30 Estimated GFR > 60 ml/min 03/18/21 03:30 BUN/Creatinine Ratio 50 % 03/18/21 03:30 Glucose 145 mg/dL (65-100) H 03/18/21 03:30 POC Glucose 171 mg/dL (70-105) H 03/18/21 12:12 Lactic Acid 1.90 mmol/L (0.7-2.0) 03/10/21 01:12 Calcium 9.1 mg/dL (8.4-10.2) 03/18/21 03:30 Ferritin 110.2 ng/mL (10.0-200.0) 03/18/21 03:30 Total Bilirubin 0.30 mg/dL (0.1-1.2) 03/11/21 04:40 AST 19 units/L (5-40) 03/11/21 04:40 ALT 12 units/L (7-56) 03/11/21 04:40 Alkaline Phosphatase 107 units/L (35-129) 03/11/21 04:40 Lactate Dehydrogenase 501 units/L (91-180) H 03/18/21 03:30 Troponin T 0.085 ng/mL (0.00-0.029) H 03/07/21 20:31 C-Reactive Protein 0.30 mg/dL (0.00-1.30) 03/18/21 03:30 Total Protein 6.1 g/dL (6.3-8.2) L 03/11/21 04:40 Albumin 3.2 g/dL (3.9-5) L 03/11/21 04:40 Albumin/Globulin Ratio 1.1 % 03/11/21 04:40 Triglycerides 136 mg/dL (2-149) 03/17/21 02:00 Cholesterol 141 mg/dL (50-199) 03/07/21 20:31 LDL Cholesterol Direct 72 mg/dL (50-130) 03/07/21 20:31 HDL Cholesterol 34 mg/dL (40-59) L 03/07/21 20:31 Cholesterol/HDL Ratio 4.14 % 03/07/21 20:31 Serotonin Release Assay See scanned result 03/08/21 13:00 Procalcitonin 0.20 ng/mL (<0.15) 03/13/21 08:08 HCG, Qual Negative (Negative) 03/07/21 22:48 Arterial Blood Glucose 239 mg/dL (65-95) H 03/15/21 03:10 Arterial Blood Ionized Calcium 4.5 mg/dL (4.6-5.3) L 03/15/21 03:10 Urine Color Yellow (Yellow) 03/08/21 05:51 Urine Turbidity Clear (Clear) 03/08/21 05:51 Urine pH 6.0 (5.0-7.0) 03/08/21 05:51 Ur Specific [place] > 1.050 (1.003-1.030) H 03/08/21 05:51 Urine Protein 100 mg/dl mg/dL (Negative) 03/08/21 05:51 Urine Glucose (UA) Neg mg/dL (Negative) 03/08/21 05:51 Urine Ketones Neg mg/dL (Negative) 03/08/21 05:51 Urine Blood Neg (Negative) 03/08/21 05:51 Urine Nitrite Neg (Negative) 03/08/21 05:51 Urine Bilirubin Neg (Negative) 03/08/21 05:51 Urine Urobilinogen 4.0 mg/dL (<2.0) 03/08/21 05:51 Ur Leukocyte Esterase Neg (Negative) 03/08/21 05:51 Urine WBC (Auto) 5.0 /HPF (0.0-6.0) 03/08/21 05:51 Urine RBC (Auto) 5.0 /HPF (0.0-6.0) 03/08/21 05:51 U Epithel Cells (Auto) < 1.0 /HPF (0-13.0) 03/08/21 05:51 Urine Bacteria (Auto) 1+ /HPF (Negative) 03/08/21 05:51 Urine Mucus Few /HPF 03/08/21 05:51 Heparin-induced Plt Ab Negative (Negative) 03/08/21 13:00 UF Heparin High Dose 0 % Release 03/08/21 13:00 JESSY UFH Low Dose 0.1 0 % Release 03/08/21 13:00 JESSY UFH Low Dose 0.5 0 % Release 03/08/21 13:00 Coronavirus (PCR) Positive (Negative) A 03/07/21 Unknown Calabrese/IV: Voiding Method Indwelling Catheter Active Medications - Current Medications Current Medications: Generic Name Dose Route Start Last Admin Trade Name Freq PRN Reason Stop Dose Admin Acetaminophen 650 mg 03/10/21 00:30 Acetaminophen 650 Mg Rect Supp RI Q4H PRN Pain, Mild (1-3) Lipase/Protease/Amylase 1 each 03/08/21 13:40 Lipase 10,500/Protease 25,000/Amylase 43,750 (Units) Dr Cap FEEDTUBE PRN PRN For Clogged Feeding Tube Ascorbic Acid 1,000 mg 03/12/21 10:00 03/18/21 10:19 Ascorbic Acid 500 Mg Tab PO 1,000 mg BID MARCO ANTONIO Administration Cholecalciferol 5,000 unit 03/12/21 10:00 03/18/21 10:19 Cholecalciferol (Vit D3) 5,000 Unit Tab PO 5,000 unit DAILY MARCO ANTONIO Administration Dextrose 50 ml 03/07/21 22:57 Dextrose 50% In Water (25gm) 50 Ml Syringe IV Q30MIN PRN Hypoglycemia Protocol Enoxaparin Sodium 100 mg 03/17/21 14:00 03/18/21 10:17 Enoxaparin 100 Mg/1 Ml Inj SUB-Q 100 mg Q12HR MARCO ANTONIO Administration Famotidine 20 mg 03/13/21 10:00 03/18/21 10:19 Famotidine 20 Mg Tab PO 20 mg BID MARCO ANTONIO Administration Fentanyl 50 mcg 03/07/21 21:20 03/17/21 12:16 Fentanyl 100 Mcg/2 Ml Inj IV 50 mcg Q10MIN PRN Administration ANALGESIA Hydrophilic Ointment 1 applic 03/08/21 12:42 Lip Therapy Vaseline TP Q2HR PRN Dry Lips Propofol 1,000 mg in 100 mls @ 3.084 mls/hr 03/07/21 21:00 03/18/21 08:42 Diprivan 10 Mg/Ml IV 0 mcg/kg/min TITR MARCO ANTONIO 0 mls/hr Titration Protocol 5 MCG/KG/MIN Fentanyl Citrate 2,000 mcg in 100 mls @ 5.14 mls/hr 03/07/21 22:00 03/18/21 08:42 Fentanyl Drip Premix IV 0 mcg/kg/hr TITR MARCO ANTONIO 0 mls/hr Titration Protocol 1 MCG/KG/HR Norepinephrine 4 mg in 250 mls @ 7.5 mls/hr 03/07/21 23:45 03/08/21 08:15 Levophed Drip 4 Mg/Ns 250 Ml IV 0 mcg/min TITR MARCO ANTONIO 0 mls/hr Titration Protocol 2 MCG/MIN Dexmedetomidine HCl 400 mcg/ 104 mls @ 5.33 mls/hr 03/17/21 12:00 03/18/21 12:45 Sodium Chloride IV 0.7 mcg/kg/hr TITRATE MARCO ANTONIO 18.655 mls/hr Titration Protocol 0.2 MCG/KG/HR Insulin Glargine 25 units 03/16/21 10:00 03/18/21 10:19 Insulin Glargine 100 Units/Ml SUB-Q 25 units DAILY MARCO ANTONIO Administration Insulin Glargine 20 units 03/18/21 22:00 Insulin Glargine 100 Units/Ml SUB-Q QHS [facility] Insulin Human Lispro 0 unit 03/08/21 12:00 03/18/21 13:36 Insulin Lispro 100 Unit/Ml SUB-Q Not Given Q6HR [facility] Protocol Magnesium Hydroxide 30 ml 03/07/21 22:57 03/13/21 10:13 Magnesium Hydroxide (Mom) Oral Liqd Udc PO 30 ml Q4H PRN Administration Constipation Morphine Sulfate 2 mg 03/07/21 22:57 03/09/21 21:29 Morphine 2 Mg/1 Ml Inj IV 2 mg Q4H PRN Administration Pain, Moderate (4-6) Multi-Ingred Cream/Lotion/Oil/Oint 1 applic 03/08/21 12:42 Mineral Oil/Petrolatum, White Ophth Oint 3.5 Gm OU Q4HR PRN Dry Eye(s) Ondansetron HCl 4 mg 03/07/21 22:57 Ondansetron 4 Mg/2 Ml Inj IV Q8H PRN Nausea And Vomiting Quetiapine Fumarate 300 mg 03/16/21 17:33 03/18/21 10:19 Quetiapine 100 Mg Tab FEEDTUBE 300 mg BID MARCO ANTONIO Administration Senna/Docusate Sodium 1 tab 03/08/21 22:00 03/18/21 10:19 Sennosides/Docusate Sodium 8.6/50 Mg Tab FEEDTUBE 1 tab BID MARCO ANTONIO Administration Simple Syrup 15 ml 03/08/21 13:40 Simple Syrup 15 Ml FEEDTUBE PRN PRN Hypoglycemia Simple Syrup 30 ml 03/08/21 13:40 Simple Syrup 15 Ml FEEDTUBE PRN PRN Hypoglycemia Sodium Bicarbonate 325 mg 03/08/21 13:40 Sodium Bicarbonate 325 Mg Tab FEEDTUBE PRN PRN For Clogged Feeding Tube Sodium Chloride 10 ml 03/08/21 10:00 03/18/21 10:21 Sodium Chloride 0.9% 10 Ml Flush Syringe IV 10 ml BID MARCO ANTONIO Administration Sodium Chloride 10 ml 03/07/21 22:57 Sodium Chloride 0.9% 10 Ml Flush Syringe IV PRN PRN LINE FLUSH Tamsulosin HCl 0.8 mg 03/16/21 17:33 03/18/21 10:17 Tamsulosin 0.4 Mg Cap PO 0.8 mg QDAY MARCO ANTONIO Administration Zinc Sulfate 220 mg 03/12/21 10:00 03/18/21 10:19 Zinc Sulfate 220 Mg Cap PO 220 mg QDAY MARCO ANTONIO Administration Nutrition/Malnutrition Assess - Dietary Evaluation Nutrition/Malnutrition Findings: Nutrition Notes Start: 03/08/21 12:27 Freq: Status: Active Protocol: Document 03/17/21 11:02 CW (Rec: 03/17/21 11:10 CW [id number]) Nutrition Notes Initial or Follow up Reassessment Current Diagnosis Sepsis,Respiratory Failure Other Pertinent Diagnosis Pneu, r/o COVID-19, pulmonary embolism Current Diet Vital AF at 50 ml/hr Labs/Tests 03/16 BG 230 Pertinent Medications Propofol at 15.42ml/hr ( provides 407 kcal) Decadron Lantus Height 5 ft Weight 102.5 kg [place] Body Weight (kg) 45.45 BMI 44.1 Weight Status Morbidly Obese Subjective/Other Information F/U for TF tolerance. TF running at goal. No reports of TF intolerance. Appears taht propofol is being weaned down. Will adjust TF accordingly next assessment if propofol continues at high rate Percent of energy/protein needs met: 100%/79% Burn Absent Trauma Absent GI Symptoms None Current % PO Negligible Minimum of two criteria Yes Fluid Accumulation Mild (non-severe) #1 Nutrition Diagnosis Inadequate oral intake Diagnosis Progress(for reassessment Continues documentation) Is patient on ventilator? Yes Is Patient Ambulatory and/or Out of Bed No REE-([facility]-confined to bed) 1901.088 Kcal/Kg value to use for calculation 14 Approximate Energy Requirements Using 1435 kcal/Kg Calculation Used for Recommendations Kcal/kg Additional Notes Pro needs up to 2.5g/kg IBW: 114g/day Fluid needs 1ml/kcal Nutrition Intervention Change Diet Order: Contiue Nutrition Support: Vital AF 1.2 at 50ml/hr with 80ml water flush q4h. Kcal 1,440 Protein (gm) 90 Fluid (mL) 937 Goal #1 TF tolerance Goal #2 TF (at goal rate) to meet at least 75% energy and pro needs Anticipated Discharge Needs: Unable to determine at this time Follow-Up By: 03/20/21 Additional Comments F/U for stable TF; BG levels, propofol status
[2021-03-18] MEDS ORDERED: FUROSEMIDE 40 MG/4 ML INJ IV SCH (11:00)
[2021-03-18 11:31] LABS: ABG Base Excess 3.2 mmol/L (-2.0-3.0); ABG HCO3 27.5 mmol/L (20.0-26.0); ABG Methemoglobin 0.5 % (0.0-1.5); ABG Oxygen Saturation 93.6 % (95.0-99.0); ABG PH 7.445 pH Units (7.350-7.450); ABG PO2 65.2 mm Hg (80.0-90.0)
--- NOTE | 2021-03-18 13:58 | Progress Note ---
Assessment and Plan Cultures: Blood culture 03/07/2021 no growth Urine culture 03/08/2021 no growth Sputum culture 03/08/2021 Lakshmi Blood culture 03/10/2021 no growth Covid PCR: Positive A/P: 45-year-old female no past medical history admitted with COVID-19 pneumonia and bilateral pulmonary emboli. #Critical COVID-19 pneumonia: Patient presented with 3 days of symptoms, chest x-ray with diffuse bilateral infiltrates, admission O2 sats 50% on room air. Inflammatory markers elevated, now improving. #Acute hypoxemic respiratory failure: Likely secondary to COVID-19 infection. Remains intubated, FiO2 35% #Bilateral pulmonary emboli: Anticoagulation per primary #Obesity: Associated with worse COVID-19 outcomes. Recs: -Hopefully will be extubated soon -Completed steroids -Completed remdesivir -Actemra 03/09/2021 -Completed antibiotics. Leukocytosis may be secondary to ongoing steroids, which just finished. Can follow up with repeat CBC to ensure WBC falls. -Anticoagulation per hospital protocol -Proning as able MD [facility] ([facility]) Office [phone] Subjective Date of service: 03/18/21 Principal diagnosis: Ac. hypoxemic resp. failure; Septic Shock; COVID-19 Pneumonia; VTE; NSTEMI Interval history: Remains intubated, currently agitated awake, FiO2 35%, communicating. Objective - Exam Narrative Exam: General appearance: Alert, agitated on the ventilator Eyes: anicteric sclerae, moist conjunctivae; no lid-lag; PERRLA HENT: Normocephalic, Atraumatic; normal external ears, nares open, oropharynx endotracheal tube in place Neck: supple, tracheal midline, no JVD Lungs: Clear to auscultation CV: RRR no murmur Abdomen: Soft, non-tender; obese Extremities: no edema, no cyanosis Skin: No rash. Psych: Agitated Neuro: Alert, agitated follows commands - Constitutional Vitals: Vital Signs Temp Pulse Resp BP Pulse Ox 98.9 F 69 22 106/60 100 03/18/21 12:00 03/18/21 13:00 03/18/21 13:00 03/18/21 13:00 03/18/21 13:00 Temperature -Last 24 Hours Temperature 98.9 F Temperature 97.6 F Temperature 97.6 F Temperature 97.9 F Temperature 97.8 F Temperature 98.9 F Temperature 98.3 F - Labs CBC & Chem 7: 03/18/21 03:30 03/18/21 03:30 Labs: Abnormal lab results 03/17/21 03/17/21 03/17/21 Range/Units 15:35 17:36 21:58 WBC (4.5-11.0) K/mm3 RBC (3.65-5.03) M/mm3 RDW (13.2-15.2) % D-Dimer (0-234) ng/mlDDU Heparin Anti-Xa Level < 0.10 L (0.3-0.7) U.I./ml ABG pO2 (80.0-90.0) mm Hg ABG HCO3 (20.0-26.0) mmol/L ABG O2 Saturation (95.0-99.0) % ABG Base Excess (-2.0-3.0) mmol/L ABG Hemoglobin (12.0-16.0) gm/dl Oxyhemoglobin (95.0-99.0) % Creatinine (0.6-1.2) mg/dL Glucose (65-100) mg/dL POC Glucose 281 H 187 H (70-105) mg/dL Lactate Dehydrogenase (91-180) units/L 03/18/21 03/18/21 03/18/21 Range/Units 00:01 03:30 03:30 WBC 20.0 H (4.5-11.0) K/mm3 RBC 3.63 L (3.65-5.03) M/mm3 RDW 15.7 H (13.2-15.2) % D-Dimer 3430.09 H (0-234) ng/mlDDU Heparin Anti-Xa Level (0.3-0.7) U.I./ml ABG pO2 (80.0-90.0) mm Hg ABG HCO3 (20.0-26.0) mmol/L ABG O2 Saturation (95.0-99.0) % ABG Base Excess (-2.0-3.0) mmol/L ABG Hemoglobin (12.0-16.0) gm/dl Oxyhemoglobin (95.0-99.0) % Creatinine (0.6-1.2) mg/dL Glucose (65-100) mg/dL POC Glucose 160 H (70-105) mg/dL Lactate Dehydrogenase (91-180) units/L 03/18/21 03/18/21 03/18/21 Range/Units 03:30 10:40 12:12 WBC (4.5-11.0) K/mm3 RBC (3.65-5.03) M/mm3 RDW (13.2-15.2) % D-Dimer (0-234) ng/mlDDU Heparin Anti-Xa Level (0.3-0.7) U.I./ml ABG pO2 65.2 L (80.0-90.0) mm Hg ABG HCO3 27.5 H (20.0-26.0) mmol/L ABG O2 Saturation 93.6 L (95.0-99.0) % ABG Base Excess 3.2 H (-2.0-3.0) mmol/L ABG Hemoglobin 11.4 L (12.0-16.0) gm/dl Oxyhemoglobin 91.5 L (95.0-99.0) % Creatinine 0.3 L (0.6-1.2) mg/dL Glucose 145 H (65-100) mg/dL POC Glucose 171 H (70-105) mg/dL Lactate Dehydrogenase 501 H (91-180) units/L
[2021-03-18] MEDS ORDERED: FUROSEMIDE 40 MG/4 ML INJ IV ONE (19:22)
[2021-03-19] MEDS: INSULIN LISPRO 100 UNIT/ML SUB-Q SCH ×4 (00:45→17:53)
--- NOTE | 2021-03-19 02:07 | XRay Report ---
CHEST 1 VIEW 03/19/2021 1:01 AM INDICATION / CLINICAL INFORMATION: COVID, Resp failure. COMPARISON: 03/17/2021 FINDINGS: SUPPORT DEVICES: ET tube extends to the level orion and slightly into the right mainstem bronchus an d should be pulled back 1 to centimeters. HEART / MEDIASTINUM: No significant abnormality. LUNGS / PLEURA: Diffuse bilateral pulmonary opacities No pneumothorax. ADDITIONAL FINDINGS: No significant additional findings. IMPRESSION: 1. ET tube extends into the right mainstem bronchus and should be pulled back at least 1 2 cm. 2. Diffuse bilateral pulmonary opacities. Signer Name: Kojo Trammell MD Signed: 03/19/2021 2:03 AM Workstation Name: [id number]
[2021-03-19 04:50] LABS: Blood Urea Nitrogen 15 mg/dL (7-17); Calcium 7.4 mg/dL (8.4-10.2); Hemolysis Index 9
[2021-03-19 04:53] LABS: BUN/Creatinine Ratio 50
[2021-03-19] MEDS: fentaNYL DRIP Premix 2,000 MCG/100 ML BAG IV SCH (05:36)
[2021-03-19] MEDS: QUEtiapine 100 MG TAB FEEDTUBE SCH ×2 (08:35→10:46)
[2021-03-19] MEDS: ENOXAPARIN 100 MG/1 ML INJ SUB-Q SCH ×2 (10:28→22:14)
[2021-03-19] MEDS: ZINC SULFATE 220 MG CAP PO SCH (10:28)
[2021-03-19] MEDS: ASCORBIC ACID 500 MG TAB PO SCH ×2 (10:28→22:13)
[2021-03-19] MEDS: TAMSULOSIN 0.4 MG CAP PO SCH (10:46)
[2021-03-19] MEDS: CHOLECALCIFEROL (VIT D3) 5,000 UNIT TAB PO SCH (10:46)
[2021-03-19] MEDS: SENNOSIDES/DOCUSATE SODIUM 8.6/50 MG TAB FEEDTUBE SCH ×2 (10:46→22:13)
[2021-03-19] MEDS: FAMOTIDINE 20 MG TAB PO SCH ×2 (10:46→22:13)
--- NOTE | 2021-03-19 10:49 | Progress Note ---
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 Hemoglobin 11.0 L ABG Oxyhemoglobin ABG Sodium 130.5 L ABG Potassium ABG Chloride 95.0 L ABG Glucose 325 H Oxyhemoglobin Carboxyhemoglobin Sodium Potassium Chloride Carbon Dioxide BUN Creatinine Glucose POC Glucose 256 H Lactic Acid Calcium Ferritin 209.5 H Lactate Dehydrogenase Troponin T C-Reactive Protein Total Protein Albumin Triglycerides HDL Cholesterol Arterial Blood Glucose 325 H Arterial Blood Ionized Calcium 4.5 L Ur Specific [place] Coronavirus (PCR) 03/14/21 03/14/21 03/14/21 18:18 19:39 22:05 WBC RBC Hgb Hct RDW Plt Count Seg Neuts % (Manual) Lymphocytes % (Manual) Nucleated RBC % Seg Neutrophils # Man Lymphocytes # (Manual) Monocytes # (Manual) PT INR APTT D-Dimer Heparin Anti-Xa Level 0.19 L ABG pH POC ABG pCO2 POC ABG pO2 ABG pO2 ABG HCO3 ABG O2 Saturation ABG Base Excess ABG Hemoglobin ABG Oxyhemoglobin ABG Sodium ABG Potassium ABG Chloride ABG Glucose Oxyhemoglobin Carboxyhemoglobin Sodium Potassium Chloride Carbon Dioxide BUN Creatinine Glucose POC Glucose 299 H 276 H Lactic Acid Calcium Ferritin Lactate Dehydrogenase Troponin T C-Reactive Protein Total Protein Albumin Triglycerides HDL Cholesterol Arterial Blood Glucose Arterial Blood Ionized Calcium Ur Specific [place] Coronavirus (PCR) 03/14/21 03/15/21 03/15/21 23:47 03:10 05:13 WBC RBC Hgb Hct RDW Plt Count Seg Neuts % (Manual) Lymphocytes % (Manual) Nucleated RBC % Seg Neutrophils # Man Lymphocytes # (Manual) Monocytes # (Manual) PT INR APTT D-Dimer Heparin Anti-Xa Level ABG pH 7.515 H POC ABG pCO2 POC ABG pO2 ABG pO2 ABG HCO3 ABG O2 Saturation ABG Base Excess ABG Hemoglobin 11.0 L ABG Oxyhemoglobin ABG Sodium 131.4 L ABG Potassium ABG Chloride 95.0 L ABG Glucose 239 H Oxyhemoglobin Carboxyhemoglobin Sodium Potassium Chloride Carbon Dioxide BUN Creatinine Glucose POC Glucose 344 H 245 H Lactic Acid Calcium Ferritin Lactate Dehydrogenase Troponin T C-Reactive Protein Total Protein Albumin Triglycerides HDL Cholesterol Arterial Blood Glucose 239 H Arterial Blood Ionized Calcium 4.5 L Ur Specific [place] Coronavirus (PCR) 03/15/21 03/15/21 03/15/21 06:00 11:40 17:07 WBC RBC Hgb Hct RDW Plt Count Seg Neuts % (Manual) Lymphocytes % (Manual) Nucleated RBC % Seg Neutrophils # Man Lymphocytes # (Manual) Monocytes # (Manual) PT INR APTT D-Dimer Heparin Anti-Xa Level ABG pH POC ABG pCO2 POC ABG pO2 ABG pO2 ABG HCO3 ABG O2 Saturation ABG Base Excess ABG Hemoglobin ABG Oxyhemoglobin ABG Sodium ABG Potassium ABG Chloride ABG Glucose Oxyhemoglobin Carboxyhemoglobin Sodium 136 L Potassium Chloride 94.6 L Carbon Dioxide 31 H BUN Creatinine 0.3 L Glucose 227 H POC Glucose 224 H 324 H Lactic Acid Calcium Ferritin Lactate Dehydrogenase Troponin T C-Reactive Protein Total Protein Albumin Triglycerides HDL Cholesterol Arterial Blood Glucose Arterial Blood Ionized Calcium Ur Specific [place] Coronavirus (PCR) 03/15/21 03/16/21 03/16/21 23:42 05:49 07:43 WBC 26.2 H RBC Hgb Hct RDW Plt Count Seg Neuts % (Manual) Lymphocytes % (Manual) Nucleated RBC % Seg Neutrophils # Man Lymphocytes # (Manual) Monocytes # (Manual) PT INR APTT D-Dimer Heparin Anti-Xa Level ABG pH POC ABG pCO2 POC ABG pO2 ABG pO2 ABG HCO3 ABG O2 Saturation ABG Base Excess ABG Hemoglobin ABG Oxyhemoglobin ABG Sodium ABG Potassium ABG Chloride ABG Glucose Oxyhemoglobin Carboxyhemoglobin Sodium Potassium Chloride Carbon Dioxide BUN Creatinine Glucose POC Glucose 278 H 216 H Lactic Acid Calcium Ferritin Lactate Dehydrogenase Troponin T C-Reactive Protein Total Protein Albumin Triglycerides HDL Cholesterol Arterial Blood Glucose Arterial Blood Ionized Calcium Ur Specific [place] Coronavirus (PCR) 03/16/21 03/16/21 03/16/21 07:43 07:43 07:43 WBC RBC Hgb Hct RDW Plt Count Seg Neuts % (Manual) Lymphocytes % (Manual) Nucleated RBC % Seg Neutrophils # Man Lymphocytes # (Manual) Monocytes # (Manual) PT INR APTT D-Dimer 4124.04 H Heparin Anti-Xa Level 1.69 H ABG pH POC ABG pCO2 POC ABG pO2 ABG pO2 ABG HCO3 ABG O2 Saturation ABG Base Excess ABG Hemoglobin ABG Oxyhemoglobin ABG Sodium ABG Potassium ABG Chloride ABG Glucose Oxyhemoglobin Carboxyhemoglobin Sodium Potassium Chloride Carbon Dioxide 32 H BUN Creatinine 0.4 L Glucose 230 H POC Glucose Lactic Acid Calcium Ferritin Lactate Dehydrogenase 662 H Troponin T C-Reactive Protein Total Protein Albumin Triglycerides HDL Cholesterol Arterial Blood Glucose Arterial Blood Ionized Calcium Ur Specific [place] Coronavirus (PCR) 03/16/21 03/16/21 03/16/21 07:43 11:00 17:06 WBC RBC Hgb Hct RDW Plt Count Seg Neuts % (Manual) Lymphocytes % (Manual) Nucleated RBC % Seg Neutrophils # Man Lymphocytes # (Manual) Monocytes # (Manual) PT INR APTT D-Dimer Heparin Anti-Xa Level 0.78 H ABG pH POC ABG pCO2 POC ABG pO2 ABG pO2 ABG HCO3 ABG O2 Saturation ABG Base Excess ABG Hemoglobin ABG Oxyhemoglobin ABG Sodium ABG Potassium ABG Chloride ABG Glucose Oxyhemoglobin Carboxyhemoglobin Sodium Potassium Chloride Carbon Dioxide BUN Creatinine Glucose POC Glucose 239 H Lactic Acid Calcium Ferritin Lactate Dehydrogenase Troponin T C-Reactive Protein Total Protein Albumin Triglycerides 173 H HDL Cholesterol Arterial Blood Glucose Arterial Blood Ionized Calcium Ur Specific [place] Coronavirus (PCR) 03/16/21 03/16/21 03/17/21 17:07 23:16 00:37 WBC RBC Hgb Hct RDW Plt Count Seg Neuts % (Manual) Lymphocytes % (Manual) Nucleated RBC % Seg Neutrophils # Man Lymphocytes # (Manual) Monocytes # (Manual) PT INR APTT D-Dimer Heparin Anti-Xa Level 1.14 H ABG pH POC ABG pCO2 POC ABG pO2 ABG pO2 ABG HCO3 ABG O2 Saturation ABG Base Excess ABG Hemoglobin ABG Oxyhemoglobin ABG Sodium ABG Potassium ABG Chloride ABG Glucose Oxyhemoglobin Carboxyhemoglobin Sodium Potassium Chloride Carbon Dioxide BUN Creatinine Glucose POC Glucose 315 H 248 H Lactic Acid Calcium Ferritin Lactate Dehydrogenase Troponin T C-Reactive Protein Total Protein Albumin Triglycerides HDL Cholesterol Arterial Blood Glucose Arterial Blood Ionized Calcium Ur Specific [place] Coronavirus (PCR) 03/17/21 03/17/21 03/17/21 05:24 11:29 15:35 WBC RBC Hgb Hct RDW Plt Count Seg Neuts % (Manual) Lymphocytes % (Manual) Nucleated RBC % Seg Neutrophils # Man Lymphocytes # (Manual) Monocytes # (Manual) PT INR APTT D-Dimer Heparin Anti-Xa Level < 0.10 L ABG pH POC ABG pCO2 POC ABG pO2 ABG pO2 ABG HCO3 ABG O2 Saturation ABG Base Excess ABG Hemoglobin ABG Oxyhemoglobin ABG Sodium ABG Potassium ABG Chloride ABG Glucose Oxyhemoglobin Carboxyhemoglobin Sodium Potassium Chloride Carbon Dioxide BUN Creatinine Glucose POC Glucose 170 H 211 H Lactic Acid Calcium Ferritin Lactate Dehydrogenase Troponin T C-Reactive Protein Total Protein Albumin Triglycerides HDL Cholesterol Arterial Blood Glucose Arterial Blood Ionized Calcium Ur Specific [place] Coronavirus (PCR) 03/17/21 03/17/21 03/18/21 17:36 21:58 00:01 WBC RBC Hgb Hct RDW Plt Count Seg Neuts % (Manual) Lymphocytes % (Manual) Nucleated RBC % Seg Neutrophils # Man Lymphocytes # (Manual) Monocytes # (Manual) PT INR APTT D-Dimer Heparin Anti-Xa Level ABG pH POC ABG pCO2 POC ABG pO2 ABG pO2 ABG HCO3 ABG O2 Saturation ABG Base Excess ABG Hemoglobin ABG Oxyhemoglobin ABG Sodium ABG Potassium ABG Chloride ABG Glucose Oxyhemoglobin Carboxyhemoglobin Sodium Potassium Chloride Carbon Dioxide BUN Creatinine Glucose POC Glucose 281 H 187 H 160 H Lactic Acid Calcium Ferritin Lactate Dehydrogenase Troponin T C-Reactive Protein Total Protein Albumin Triglycerides HDL Cholesterol Arterial Blood Glucose Arterial Blood Ionized Calcium Ur Specific [place] Coronavirus (PCR) 03/18/21 03/18/21 03/18/21 03:30 03:30 03:30 WBC 20.0 H RBC 3.63 L Hgb Hct RDW 15.7 H Plt Count Seg Neuts % (Manual) Lymphocytes % (Manual) Nucleated RBC % Seg Neutrophils # Man Lymphocytes # (Manual) Monocytes # (Manual) PT INR APTT D-Dimer 3430.09 H Heparin Anti-Xa Level ABG pH POC ABG pCO2 POC ABG pO2 ABG pO2 ABG HCO3 ABG O2 Saturation ABG Base Excess ABG Hemoglobin ABG Oxyhemoglobin ABG Sodium ABG Potassium ABG Chloride ABG Glucose Oxyhemoglobin Carboxyhemoglobin Sodium Potassium Chloride Carbon Dioxide BUN Creatinine 0.3 L Glucose 145 H POC Glucose Lactic Acid Calcium Ferritin Lactate Dehydrogenase 501 H Troponin T C-Reactive Protein Total Protein Albumin Triglycerides HDL Cholesterol Arterial Blood Glucose Arterial Blood Ionized Calcium Ur Specific [place] Coronavirus (PCR) 03/18/21 03/18/21 03/18/21 10:40 12:12 17:52 WBC RBC Hgb Hct RDW Plt Count Seg Neuts % (Manual) Lymphocytes % (Manual) Nucleated RBC % Seg Neutrophils # Man Lymphocytes # (Manual) Monocytes # (Manual) PT INR APTT D-Dimer Heparin Anti-Xa Level ABG pH POC ABG pCO2 POC ABG pO2 ABG pO2 65.2 L ABG HCO3 27.5 H ABG O2 Saturation 93.6 L ABG Base Excess 3.2 H ABG Hemoglobin 11.4 L ABG Oxyhemoglobin ABG Sodium ABG Potassium ABG Chloride ABG Glucose Oxyhemoglobin 91.5 L Carboxyhemoglobin Sodium Potassium Chloride Carbon Dioxide BUN Creatinine Glucose POC Glucose 171 H 145 H Lactic Acid Calcium Ferritin Lactate Dehydrogenase Troponin T C-Reactive Protein Total Protein Albumin Triglycerides HDL Cholesterol Arterial Blood Glucose Arterial Blood Ionized Calcium Ur Specific [place] Coronavirus (PCR) 03/18/21 03/19/21 03/19/21 23:17 04:45 Unknown WBC RBC Hgb Hct RDW Plt Count Seg Neuts % (Manual) Lymphocytes % (Manual) Nucleated RBC % Seg Neutrophils # Man Lymphocytes # (Manual) Monocytes # (Manual) PT INR APTT D-Dimer Heparin Anti-Xa Level ABG pH POC ABG pCO2 POC ABG pO2 ABG pO2 ABG HCO3 ABG O2 Saturation ABG Base Excess ABG Hemoglobin 11.4 L ABG Oxyhemoglobin ABG Sodium ABG Potassium ABG Chloride ABG Glucose Oxyhemoglobin Carboxyhemoglobin Sodium Potassium 3.2 L Chloride Carbon Dioxide BUN Creatinine 0.3 L Glucose POC Glucose 160 H Lactic Acid Calcium 7.4 L D Ferritin Lactate Dehydrogenase Troponin T C-Reactive Protein Total Protein Albumin Triglycerides HDL Cholesterol Arterial Blood Glucose Arterial Blood Ionized Calcium Ur Specific [place] Coronavirus (PCR) Chest x-ray: image reviewed Allied health notes reviewed: RT
[2021-03-19] MEDS: INSULIN GLARGINE 100 UNITS/ML SUB-Q SCH ×2 (11:59→22:13)
--- NOTE | 2021-03-19 12:55 | Progress Note ---
Assessment and Plan Assessment and plan: This is a 45-year-old female with no significant past medical history admitted to the hospital service with COVID-19 pneumonia, multiple peripheral bilateral lower lobe pulmonary emboli, septic shock, leukocytosis, hyponatremia, hypochloremia, metabolic acidosis, lactic acidosis. COVID-19 pneumonia Septic shock secondary to COVID-19 pneumonia Acute hypoxic respiratory failure Pulmonary embolism Left posterior tibial and peroneal veins DVT Leukocytosis Lactic acidosis (improved) Thrombocytopenia (improved-03/08 HIT NEGATIVE) Oropharyngeal dysphagia Urinary retention Hyperglycemia Acute metabolic encephalopathy Obesity -CCM, infectious disease consulted, appreciate recommendations -03/07 COVID-19 PCR positive -Droplet/aspiration precautions -Steroid therapy -Vitamin C, vitamin D, zinc -S/p remdesivir -S/p Actemra on 03/09/2021 -Antibiotic therapy -Continuous SPO2 monitoring -Pulmonary hygiene -Aspiration precautions -DC Precedex, fentanyl, Seroquel -Lovenox VTE -Bowel regimen -Flomax for urinary retention -DC tube feeds, give patient a diet -SSI, Accu-Cheks every 6, long-acting insulin -Trend COVID-19 inflammatory markers, CBC, BMP Plan for today: Give patient a diet, start PT/OT, DC Seroquel. Continue nasal cannula oxygen support, wean patient off of oxygen DVT/GI prophylaxis: Lovenox, PPI Disposition: ICU Lines: PICC pending, IJ TLC to be removed, calabrese The high probability of a clinically significant, sudden or life threatening deterioration of the [pulmonary] system(s) required my full and direct attention, intervention and personal management. The aggregate critical care ti me was [35] minutes. This time is in addition to time spent performing reported procedures but includes the following: [X] Data Review and interpretation [X] Patient assessment and monitoring of vital signs [X] Documentation [X] Medication orders and management History Interval history: This is a 45-year-old female with significant past medical history presented to emergency department on 03/07 complaining of cough, shortness of breath and diarrhea for 3 days prior to arrival. Upon arrival to emergency department patient was found to be in respiratory distress and initial oxygen saturations were said to be in the 50s and patient was placed on a nonrebreather with improvement of oxygen saturations to 7 days. Patient was subsequently intubated in the emergency department and upon review patient did not receive COVID-19 vaccination. Work-up in the emergency department revealed bilateral pulmonary infiltrates on CXR, leukocytosis of 31,000, hyperglycemia with a blood glucose of 301, elevated D-dimer greater than 10,000., CTA chest showed multiple peripheral bilateral lower lobe pulmonary emboli. Patient was hypotensive in the emergency department and fluid resuscitated and started on vasopressors. Patient will be admitted to the hospital service with COVID-19 PUI, septic shock secondary to pneumonia, pulmonary emboli and acute hypoxic respiratory failure. [facility] and infectious disease were consulted. Patient was started on heparin drip. 03/08: New issues: Thrombocytosis question if this is secondary to HIT. We will send out HIT panel. Monitor platelets. Continue heparin drip at this time. Await pulmonary and ID input. 03/09: Patient noted to have Covid positive pneumonia ID input is appreciated patient on dexamethasone for complete 10 days of therapy now started on remdesivir due to hypoxia also to complete 5 days therapy and Actemra a one- time. We will continue to monitor -Obtain q48-72h inflammatory markers - ferritin, Ddimer, CRP, LDH -Continue ceftriaxone 2 gm IV qday and azithromycin 500 mg PO qday for 5 days given elevated procal -Anticoagulation per hospital protocol -Proning as able I also requested a stat CBC to further evaluate thrombocytosis that was noted yesterday. I called maría elena Serafin David to update and got voicemail left a message. I also called James David but his phone is unable to accept messages at this time. 03/10: Possible ileus versus bowel obstruction. Will obtain KUB. Continue to hold tube feeds at this time. We will also obtain GI consult if no resolution. Also patient noted to have urinary retention we will proceed with placing a Calabrese catheter. She does follow commands some when off sedation but gets easily agitated. Continue ICU management at this point. 03/11: Blood sugar still elevated adjusted nighttime insulin for better coverage. KUB concerning for radiopaque object possible tablet. Was not present on 03 08. We will repeat a KUB in a.m. to see if resolution versus ileus. Continue current management for COVID-19. Continue heparin drip for noted pulmonary embolism. Platelets actually improved despite being on heparin doubt HIT. Patient still requires critical care monitoring. Altered mental status still present. 03/12: Worsening leukocytosis this could be secondary to steroids. We will give Lasix today in addition to empiric vitamins. Chest x-ray shows worsening opacities will monitor closely. Continue full mechanical ventilation and restraints for safety. 03/13: At the time my examination patient was on fentanyl at 3 mcg, heparin drip, pressure control ventilation with a rate of 20, pressure support of 20, FiO2 of 35% and PEEP of 12 and ECMO blood change patient ventilation to assist control tidal volume 450, rate of 14, PEEP of 10 in the morning. RN reported the patient did not have a BM since admission and [facility] ordered mag citrate x1. 03/14: SBT trial per [facility], leukocytosis and D-dimer is improving. Patient is hyperglycemic and long-acting insulin dosage has been increased. Patient has pseudohyponatremia today. Nurse reported that patient central line was not drawing back blood and Cathflo was ordered. No acute events reported overnight. 03/15: Patient is severely agitated and SBT trial was not attempted today. Patient remains hyperglycemic and insulin has been adjusted accordingly. [facility] will start the patient on Seroquel and attempt to wean propofol. Patient was hypotensive after sedation was increased and she received a 500 mL LR bolus today. We will obtain the ECG in the a.m. to assess QTc. RN to attempt to obtain PIV 03/16: Patient still has moments of severe agitation and her Seroquel will be increased today. Patient's urinary catheter was replaced due to retention pat ient has been started on Flomax. At the time my examination patient patient was sedated on propofol and fentanyl on AC. Patient still has leukocytosis and hyperglycemia. Insulin increased. We will obtain triglyceride level in the morning. [facility] opted to removal otis and replace CVL with PICC. 03/17: This morning the time of examination patient sedated on propofol and fentanyl assist control ventilation tidal volume 450, rate of 14, PEEP of 8 and 35% FiO2. EKG this a.m. showed a QTC of 407. Patient was able to follow commands at time of examination. Patient will be started on precedex and heparin gtt changed to lovenox. Lantus increased 03/18: This morning patient was sedated with propofol, fentanyl, precedex gtt. RT to attempt SBT and will obtain an ABG after. Lantus decreased as steroids ended today. CCM to give one time dose of lasix. 03/19/2021: Patient seen and examined this morning, patient self extubated, on nasal cannula oxygen, patient waxing and waning with some delirium but speaking Japanese and updated patient on her status. Hospitalist Physical - Physical exam Narrative exam: General appearance: Obese, no acute distress, well-nourished EENT: PERRL, EOM intact, hearing intact, clear oral mucosa Neck: Present: supple, normal ROM Respiratory: Nasal cannula oxygen, bilateral CTA, negative: rales, rhonchi, wheezing Cardiovascular: Regular rate/rhythm, Normal S1 & S2. No gallop, rub Extremities: no ischemia, No edema, normal temperature, normal color, Full ROM Abdominal: soft, no tenderness, non-distended, normal bowel sounds Integumentary: Present: clear, warm, dry no wounds, no erythema noted Psychiatric: appropriate mood/affect, confused Neurologic: CNII-XII intact, moves all extremities, no sensory or motor abnormalities - Constitutional Vitals: Temp Pulse Resp BP Pulse Ox 98.4 F 100 H 31 H 132/56 100 03/19/21 08:00 03/19/21 12:41 03/19/21 12:41 03/19/21 12:41 03/19/21 12:41 General appearance: Present: well-nourished, obese, other (Intubated and sedated) HEART Score - HEART Score Troponin: Troponin T 0.085 ng/mL (0.00-0.029) H 03/07/21 20:31 Results - Labs CBC & Chem 7: 03/18/21 03:30 03/19/21 Unknown Labs: Laboratory Last Values WBC 20.0 K/mm3 (4.5-11.0) H 03/18/21 03:30 RBC 3.63 M/mm3 (3.65-5.03) L 03/18/21 03:30 Hgb 10.5 gm/dl (10.1-14.3) 03/18/21 03:30 Hct 31.8 % (30.3-42.9) 03/18/21 03:30 MCV 87 fl (79-97) 03/18/21 03:30 MCH 29 pg (28-32) 03/18/21 03:30 MCHC 33 % (30-34) 03/18/21 03:30 RDW 15.7 % (13.2-15.2) H 03/18/21 03:30 Plt Count 278 K/mm3 (140-440) 03/18/21 03:30 Lymph % (Auto) Director Of Clinical Education 03/07/21 21:04 [place] % (Auto) Director Of Clinical Education 03/07/21 21:04 Eos % (Auto) Director Of Clinical Education 03/07/21 21:04 Baso % (Auto) Director Of Clinical Education 03/07/21 21:04 Lymph # (Auto) Director Of Clinical Education 03/07/21 21:04 [place] # (Auto) Director Of Clinical Education 03/07/21 21:04 Eos # (Auto) Director Of Clinical Education 03/07/21 21:04 Baso # (Auto) Director Of Clinical Education 03/07/21 21:04 Add Manual Diff Complete 03/10/21 01:12 Total Counted 100 03/10/21 01:12 Seg Neutrophils % Director Of Clinical Education 03/10/21 01:12 Seg Neuts % (Manual) 89.0 % (40.0-70.0) H 03/10/21 01:12 Band Neutrophils % 11.0 % 03/09/21 12:10 Lymphocytes % (Manual) 6.0 % (13.4-35.0) L 03/10/21 01:12 Monocytes % (Manual) 5.0 % (0.0-7.3) 03/10/21 01:12 Metamyelocytes % 1.0 % 03/09/21 12:10 Myelocytes % 1.0 % 03/09/21 12:10 Nucleated RBC % Not Reportable 03/10/21 01:12 Seg Neutrophils # Director Of Clinical Education 03/07/21 21:04 Seg Neutrophils # Man 20.1 K/mm3 (1.8-7.7) H 03/10/21 01:12 Band Neutrophils # 0.0 K/mm3 03/10/21 01:12 Lymphocytes # (Manual) 1.4 K/mm3 (1.2-5.4) 03/10/21 01:12 Abs React Lymphs (Man) 0.0 K/mm3 03/10/21 01:12 Monocytes # (Manual) 1.1 K/mm3 (0.0-0.8) H 03/10/21 01:12 Eosinophils # (Manual) 0.0 K/mm3 (0.0-0.4) 03/10/21 01:12 Basophils # (Manual) 0.0 K/mm3 (0.0-0.1) 03/10/21 01:12 Metamyelocytes # 0.0 K/mm3 03/10/21 01:12 Myelocytes # 0.0 K/mm3 03/10/21 01:12 Promyelocytes # 0.0 K/mm3 03/10/21 01:12 Blast Cells # 0.0 K/mm3 03/10/21 01:12 WBC Morphology Not Reportable 03/10/21 01:12 Hypersegmented Neuts Not Reportable 03/10/21 01:12 Hyposegmented Neuts Not Reportable 03/10/21 01:12 Hypogranular Neuts Not Reportable 03/10/21 01:12 Smudge Cells Not Reportable 03/10/21 01:12 Toxic Granulation Not Reportable 03/10/21 01:12 Toxic Vacuolation Not Reportable 03/10/21 01:12 Dohle Bodies Not Reportable 03/10/21 01:12 Pelger-Huet Anomaly Not Reportable 03/10/21 01:12 Jarrett Rods Not Reportable 03/10/21 01:12 Platelet Estimate Not Reportable 03/10/21 01:12 Clumped Platelets Not Reportable 03/10/21 01:12 Plt Clumps, EDTA Not Reportable 03/10/21 01:12 Large Platelets Not Reportable 03/10/21 01:12 Giant Platelets Not Reportable 03/10/21 01:12 Platelet Satelliting Not Reportable 03/10/21 01:12 Plt Morphology Comment Not Reportable 03/10/21 01:12 RBC Morphology Normal 03/10/21 01:12 Dimorphic RBCs Not Reportable 03/10/21 01:12 Polychromasia Not Reportable 03/10/21 01:12 Hypochromasia Not Reportable 03/10/21 01:12 Poikilocytosis Not Reportable 03/10/21 01:12 Anisocytosis Not Reportable 03/10/21 01:12 Microcytosis Not Reportable 03/10/21 01:12 Macrocytosis Not Reportable 03/10/21 01:12 Spherocytes Not Reportable 03/10/21 01:12 Pappenheimer Bodies Not Reportable 03/10/21 01:12 Sickle Cells Not Reportable 03/10/21 01:12 Target Cells Not Reportable 03/10/21 01:12 Tear Drop Cells Not Reportable 03/10/21 01:12 Ovalocytes Not Reportable 03/10/21 01:12 Helmet Cells Not Reportable 03/10/21 01:12 [place] Bodies Not Reportable 03/10/21 01:12 [place] Rings Not Reportable 03/10/21 01:12 [place] Cells Not Reportable 03/10/21 01:12 Bite Cells Not Reportable 03/10/21 01:12 Crenated Cell Not Reportable 03/10/21 01:12 Elliptocytes Not Reportable 03/10/21 01:12 Acanthocytes (Spur) Not Reportable 03/10/21 01:12 Rouleaux Not Reportable 03/10/21 01:12 Hemoglobin C Crystals Not Reportable 03/10/21 01:12 Schistocytes Not Reportable 03/10/21 01:12 Malaria parasites Not Reportable 03/10/21 01:12 Joss Bodies Not Reportable 03/10/21 01:12 Hem Pathologist Commnt No 03/10/21 01:12 PT 18.5 Sec. (12.2-14.9) H 03/08/21 07:55 INR 1.49 (0.87-1.13) H 03/08/21 07:55 APTT 113.5 Sec. (24.2-36.6) H* 03/08/21 07:55 D-Dimer 3430.09 ng/mlDDU (0-234) H 03/18/21 03:30 Heparin Anti-Xa Level < 0.10 U.I./ml (0.3-0.7) L 03/17/21 15:35 Heparin Anti-Xa, Unfract Negative (Negative) 03/08/21 13:00 ABG pH 7.437 (7.320-7.450) 03/19/21 04:45 POC ABG pCO2 46.8 mmHg (32.0-48.0) 03/19/21 04:45 ABG pCO2 41.0 mm Hg 03/18/21 10:40 POC ABG pO2 97.0 mmHg (83-108) 03/19/21 04:45 ABG pO2 65.2 mm Hg (80.0-90.0) L 03/18/21 10:40 POC ABG HCO3 30.9 03/19/21 04:45 ABG HCO3 27.5 mmol/L (20.0-26.0) H 03/18/21 10:40 ABG O2 Saturation 97.3 (0-100) 03/19/21 04:45 ABG O2 Content 14.7 (0.0-44) 03/18/21 10:40 POC ABG Base Excess 5.8 03/19/21 04:45 ABG Base Excess 3.2 mmol/L (-2.0-3.0) H 03/18/21 10:40 ABG Hemoglobin 11.4 (12.0-17.5) L 03/19/21 04:45 ABG Oxyhemoglobin 96.1 (94-98) 03/19/21 04:45 ABG Carboxyhemoglobin 1.7 % (0.0-5.0) 03/18/21 10:40 ABG Methemoglobin 0.3 (0.0-1.5) 03/19/21 04:45 ABG Sodium 139.6 mmol/L (136.0-145.0) 03/19/21 04:45 ABG Potassium 3.8 mmol/L (3.40-4.50) 03/19/21 04:45 ABG Chloride 101.0 mmol/L (98-107) 03/19/21 04:45 ABG Glucose 70 mg/dL (65-95) 03/19/21 04:45 Oxyhemoglobin 91.5 % (95.0-99.0) L 03/18/21 10:40 Carboxyhemoglobin 0.9 (0.5-1.5) 03/19/21 04:45 FiO2 35 % 03/18/21 10:40 FiO2 % 45.0 03/19/21 04:45 Sodium 140 mmol/L (137-145) 03/19/21 Unknown Potassium 3.2 mmol/L (3.6-5.0) L 03/19/21 Unknown Chloride 105.0 mmol/L (98-107) 03/19/21 Unknown Carbon Dioxide 27 mmol/L (22-30) 03/19/21 Unknown Anion Gap 11 mmol/L 03/19/21 Unknown BUN 15 mg/dL (7-17) 03/19/21 Unknown Creatinine 0.3 mg/dL (0.6-1.2) L 03/19/21 Unknown Estimated GFR > 60 ml/min 03/19/21 Unknown BUN/Creatinine Ratio 50 % 03/19/21 Unknown Glucose 88 mg/dL (65-100) 03/19/21 Unknown POC Glucose 105 mg/dL (70-105) 03/19/21 11:08 Lactic Acid 1.90 mmol/L (0.7-2.0) 03/10/21 01:12 Calcium 7.4 mg/dL (8.4-10.2) L D 03/19/21 Unknown Ferritin 110.2 ng/mL (10.0-200.0) 03/18/21 03:30 Total Bilirubin 0.30 mg/dL (0.1-1.2) 03/11/21 04:40 AST 19 units/L (5-40) 03/11/21 04:40 ALT 12 units/L (7-56) 03/11/21 04:40 Alkaline Phosphatase 107 units/L (35-129) 03/11/21 04:40 Lactate Dehydrogenase 501 units/L (91-180) H 03/18/21 03:30 Troponin T 0.085 ng/mL (0.00-0.029) H 03/07/21 20:31 C-Reactive Protein 0.30 mg/dL (0.00-1.30) 03/18/21 03:30 Total Protein 6.1 g/dL (6.3-8.2) L 03/11/21 04:40 Albumin 3.2 g/dL (3.9-5) L 03/11/21 04:40 Albumin/Globulin Ratio 1.1 % 03/11/21 04:40 Triglycerides 136 mg/dL (2-149) 03/17/21 02:00 Cholesterol 141 mg/dL (50-199) 03/07/21 20:31 LDL Cholesterol Direct 72 mg/dL (50-130) 03/07/21 20:31 HDL Cholesterol 34 mg/dL (40-59) L 03/07/21 20:31 Cholesterol/HDL Ratio 4.14 % 03/07/21 20:31 Serotonin Release Assay See scanned result 03/08/21 13:00 Procalcitonin 0.20 ng/mL (<0.15) 03/13/21 08:08 HCG, Qual Negative (Negative) 03/07/21 22:48 Arterial Blood Glucose 70 mg/dL (65-95) 03/19/21 04:45 Arterial Blood Ionized Calcium 4.7 mg/dL (4.6-5.3) 03/19/21 04:45 Urine Color Yellow (Yellow) 03/08/21 05:51 Urine Turbidity Clear (Clear) 03/08/21 05:51 Urine pH 6.0 (5.0-7.0) 03/08/21 05:51 Ur Specific [place] > 1.050 (1.003-1.030) H 03/08/21 05:51 Urine Protein 100 mg/dl mg/dL (Negative) 03/08/21 05:51 Urine Glucose (UA) Neg mg/dL (Negative) 03/08/21 05:51 Urine Ketones Neg mg/dL (Negative) 03/08/21 05:51 Urine Blood Neg (Negative) 03/08/21 05:51 Urine Nitrite Neg (Negative) 03/08/21 05:51 Urine Bilirubin Neg (Negative) 03/08/21 05:51 Urine Urobilinogen 4.0 mg/dL (<2.0) 03/08/21 05:51 Ur Leukocyte Esterase Neg (Negative) 03/08/21 05:51 Urine WBC (Auto) 5.0 /HPF (0.0-6.0) 03/08/21 05:51 Urine RBC (Auto) 5.0 /HPF (0.0-6.0) 03/08/21 05:51 U Epithel Cells (Auto) < 1.0 /HPF (0-13.0) 03/08/21 05:51 Urine Bacteria (Auto) 1+ /HPF (Negative) 03/08/21 05:51 Urine Mucus Few /HPF 03/08/21 05:51 Heparin-induced Plt Ab Negative (Negative) 03/08/21 13:00 UF Heparin High Dose 0 % Release 03/08/21 13:00 JESSY UFH Low Dose 0.1 0 % Release 03/08/21 13:00 JESSY UFH Low Dose 0.5 0 % Release 03/08/21 13:00 Coronavirus (PCR) Positive (Negative) A 03/07/21 Unknown Calabrese/IV: Voiding Method External Female Catheter Active Medications - Current Medications Current Medications: Generic Name Dose Route Start Last Admin Trade Name Freq PRN Reason Stop Dose Admin Acetaminophen 650 mg 03/10/21 00:30 Acetaminophen 650 Mg Rect Supp PA Q4H PRN Pain, Mild (1-3) Lipase/Protease/Amylase 1 each 03/08/21 13:40 Lipase 10,500/Protease 25,000/Amylase 43,750 (Units) Dr Coreas FEEDTUBE PRN PRN For Clogged Feeding Tube Ascorbic Acid 1,000 mg 03/12/21 10:00 03/19/21 10:28 Ascorbic Acid 500 Mg Tab PO 1,000 mg BID MARCO ANTONIO Administration Cholecalciferol 5,000 unit 03/12/21 10:00 03/19/21 10:46 Cholecalciferol (Vit D3) 5,000 Unit Tab PO 5,000 unit DAILY MARCO ANTONIO Administration Dextrose 50 ml 03/07/21 22:57 Dextrose 50% In Water (25gm) 50 Ml Syringe IV Q30MIN PRN Hypoglycemia Protocol Enoxaparin Sodium 100 mg 03/17/21 14:00 03/19/21 10:28 Enoxaparin 100 Mg/1 Ml Inj SUB-Q 100 mg Q12HR MARCO ANTONIO Administration Famotidine 20 mg 03/13/21 10:00 03/19/21 10:46 Famotidine 20 Mg Tab PO 20 mg BID MARCO ANTONIO Administration Hydrophilic Ointment 1 applic 03/08/21 12:42 Lip Therapy Vaseline TP Q2HR PRN Dry Lips Dexmedetomidine HCl 400 mcg/ 104 mls @ 5.33 mls/hr 03/17/21 12:00 03/19/21 09:30 Sodium Chloride IV 0.9 mcg/kg/hr TITRATE MARCO ANTONIO 23.985 mls/hr Titration Protocol 0.2 MCG/KG/HR Insulin Glargine 25 units 03/16/21 10:00 03/19/21 11:59 Insulin Glargine 100 Units/Ml SUB-Q 25 units DAILY MARCO ANTONIO Administration Insulin Glargine 20 units 03/18/21 22:00 03/18/21 21:01 Insulin Glargine 100 Units/Ml SUB-Q 20 units QHS MARCO ANTONIO Administration Insulin Human Lispro 0 unit 03/08/21 12:00 03/19/21 06:07 Insulin Lispro 100 Unit/Ml SUB-Q Not Given Q6HR MARCO ANTONIO Protocol Magnesium Hydroxide 30 ml 03/07/21 22:57 03/13/21 10:13 Magnesium Hydroxide (Mom) Oral Liqd Udc PO 30 ml Q4H PRN Administration Constipation Multi-Ingred Cream/Lotion/Oil/Oint 1 applic 03/08/21 12:42 Mineral Oil/Petrolatum, White Ophth Oint 3.5 Gm OU Q4HR PRN Dry Eye(s) Ondansetron HCl 4 mg 03/07/21 22:57 Ondansetron 4 Mg/2 Ml Inj IV Q8H PRN Nausea And Vomiting Quetiapine Fumarate 300 mg 03/16/21 17:33 03/19/21 10:46 Quetiapine 100 Mg Tab FEEDTUBE Not Given BID MARCO ANTONIO Senna/Docusate Sodium 1 tab 03/08/21 22:00 03/19/21 10:46 Sennosides/Docusate Sodium 8.6/50 Mg Tab FEEDTUBE 1 tab BID MARCO ANTONIO Administration Simple Syrup 15 ml 03/08/21 13:40 Simple Syrup 15 Ml FEEDTUBE PRN PRN Hypoglycemia Simple Syrup 30 ml 03/08/21 13:40 Simple Syrup 15 Ml FEEDTUBE PRN PRN Hypoglycemia Sodium Bicarbonate 325 mg 03/08/21 13:40 Sodium Bicarbonate 325 Mg Tab FEEDTUBE PRN PRN For Clogged Feeding Tube Sodium Chloride 10 ml 03/08/21 10:00 03/19/21 10:28 Sodium Chloride 0.9% 10 Ml Flush Syringe IV 10 ml BID MARCO ANTONIO Administration Sodium Chloride 10 ml 03/07/21 22:57 Sodium Chloride 0.9% 10 Ml Flush Syringe IV PRN PRN LINE FLUSH Tamsulosin HCl 0.8 mg 03/16/21 17:33 03/19/21 10:46 Tamsulosin 0.4 Mg Cap PO 0.8 mg QDAY MARCO ANTONIO Administration Zinc Sulfate 220 mg 03/12/21 10:00 03/19/21 10:28 Zinc Sulfate 220 Mg Cap PO 220 mg QDAY MARCO ANTONIO Administration Nutrition/Malnutrition Assess - Dietary Evaluation Nutrition/Malnutrition Findings: Nutrition Notes Start: 03/08/21 12:27 Freq: Status: Active Protocol: Document 03/17/21 11:02 CW (Rec: 03/17/21 11:10 CW [id number]) Nutrition Notes Initial or Follow up Reassessment Current Diagnosis Sepsis,Respiratory Failure Other Pertinent Diagnosis Pneu, r/o COVID-19, pulmonary embolism Current Diet Vital AF at 50 ml/hr Labs/Tests 03/16 BG 230 Pertinent Medications Propofol at 15.42ml/hr ( provides 407 kcal) Decadron Lantus Height 5 ft Weight 102.5 kg [place] Body Weight (kg) 45.45 BMI 44.1 Weight Status Morbidly Obese Subjective/Other Information F/U for TF tolerance. TF running at goal. No reports of TF intolerance. Appears taht propofol is being weaned down. Will adjust TF accordingly next assessment if propofol continues at high rate Percent of energy/protein needs met: 100%/79% Burn Absent Trauma Absent GI Symptoms None Current % PO Negligible Minimum of two criteria Yes Fluid Accumulation Mild (non-severe) #1 Nutrition Diagnosis Inadequate oral intake Diagnosis Progress(for reassessment Continues documentation) Is patient on ventilator? Yes Is Patient Ambulatory and/or Out of Bed No REE-([facility]-confined to bed) 1901.088 Kcal/Kg value to use for calculation 14 Approximate Energy Requirements Using 1435 kcal/Kg Calculation Used for Recommendations Kcal/kg Additional Notes Pro needs up to 2.5g/kg IBW: 114g/day Fluid needs 1ml/kcal Nutrition Intervention Change Diet Order: Contiue Nutrition Support: Vital AF 1.2 at 50ml/hr with 80ml water flush q4h. Kcal 1,440 Protein (gm) 90 Fluid (mL) 937 Goal #1 TF tolerance Goal #2 TF (at goal rate) to meet at least 75% energy and pro needs Anticipated Discharge Needs: Unable to determine at this time Follow-Up By: 03/20/21 Additional Comments F/U for stable TF; BG levels, propofol status
[2021-03-20] MEDS: INSULIN LISPRO 100 UNIT/ML SUB-Q SCH ×5 (00:10→23:23)
[2021-03-20 06:59] LABS: Hematocrit 34.4 % (30.3-42.9); Hemoglobin 11.3 gm/dl (10.1-14.3); Mean Corpuscular HGB Conc 33 % (30-34); Mean Corpuscular Volume 86 fl (79-97); Platelet Count 277 K/mm3 (140-440); Red Blood Count 3.99 M/mm3 (3.65-5.03); Red Cell Distribution Width 15.4 % (13.2-15.2)
[2021-03-20 07:25] LABS: C-Reactive Protein 0.8 mg/dL (0.00-1.30)
[2021-03-20] MEDS ORDERED: POTASSIUM CHLORIDE 20 MEQ PACKET PO ONE (09:00)
[2021-03-20] MEDS: CHOLECALCIFEROL (VIT D3) 5,000 UNIT TAB PO SCH (09:06)
[2021-03-20] MEDS: TAMSULOSIN 0.4 MG CAP PO SCH (09:06)
[2021-03-20] MEDS: ASCORBIC ACID 500 MG TAB PO SCH ×2 (09:06→23:24)
[2021-03-20] MEDS: ZINC SULFATE 220 MG CAP PO SCH (09:06)
[2021-03-20] MEDS: SENNOSIDES/DOCUSATE SODIUM 8.6/50 MG TAB FEEDTUBE SCH ×2 (09:07→23:24)
[2021-03-20] MEDS: FAMOTIDINE 20 MG TAB PO SCH ×2 (09:07→23:24)
[2021-03-20] MEDS: ENOXAPARIN 100 MG/1 ML INJ SUB-Q SCH (09:07)
[2021-03-20] MEDS: INSULIN GLARGINE 100 UNITS/ML SUB-Q SCH (09:08)
--- NOTE | 2021-03-20 10:24 | Progress Note ---
<GREGOR STRAUSS - Last Filed: 03/20/21 12:39> Assessment and Plan Assessment and plan: 45-year-old female with no significant past medical history admitted to the hospital service with COVID-19 pneumonia, multiple peripheral bilateral lower lobe pulmonary emboli, septic shock, leukocytosis, hyponatremia, hypochloremia, metabolic acidosis, lactic acidosis. Problem List COVID-19 pneumonia - improving Septic shock secondary to COVID-19 pneumonia - improving Acute hypoxic respiratory failure - improving Pulmonary embolism Left posterior tibial and peroneal veins DVT Leukocytosis - downtrending Lactic acidosis -imprroved Thrombocytopenia (improved-03/08 HIT NEGATIVE) Oropharyngeal dysphagia Urinary retention Hyperglycemia Acute metabolic encephalopathy Obesity Neuro - delirium; restless; encephalopathic; critical care myopathy Alert; moving all extremities Delirium /restless Will need aggressive PT/OT; including asisstance wth feeding self PRN pain medications Discharge planning CV -ST ST- likely physiologic No fever; no hypotension; K replaced (labs in AM) Will need telemetry on transfer Resp -resp insufficiency sp covid pna Toleratig NC Continue to trend oxygen saturation Needs aggressive pulm hygiene ISB ordered albuterol PRN GI -constipation Passed bedside swallow per RN Taking diet PO with no difficulty Co sore throat overnight Aspiration precations pepcid last BM documented 03-15 will give GA suppository this evening at HS- abd soft non tender - continue to monitor bowel reg- senna : urinary retention; hypoK Maya Voiding Continue to monitor output given history of urinary retention- bladder scan and cath per nursing regimen On flomax Intake/output K replaced today labs ordered for AM Heme: PE/DVT sp covid To apixaban today Monitor Hgb HIT neg no bleeding on exam ID -sp covid pna ID following 03/07 pos covid Remains on droplet precautions Sp steroid/actemra/remdesivir on vit C/D and zinc CRP 0.8 Afebrile Down trending WBC Continue to monitor WBC and temp curve Endo -obese; hyperglycemia SSI monitor blood glucose; pt is now sp steroids and may trend down Plan for today: deline and transfer to floor with telemetry Disposition Plan: will transfer to floor on telemetry today Total Time Spent with Patient (Minutes): 60 History Interval history: No acute events overnight- tolerating NC 45-year-old female with significant past medical history presented to emergency department on 03/07 complaining of cough, shortness of breath and diarrhea for 3 days prior to arrival. Upon arrival to emergency department patient was found to be in respiratory distress and initial oxygen saturations were said to be in the 50s and patient was placed on a nonrebreather with improvement of oxygen saturations to 7 days. Patient was subsequently intubated in the emergency department and upon review patient did not receive COVID-19 vaccination. Work-up in the emergency department revealed bilateral pulmonary infiltrates on CXR, leukocytosis of 31,000, hyperglycemia with a blood glucose of 301, elevated D- dimer greater than 10,000., CTA chest showed multiple peripheral bilateral lower lobe pulmonary emboli. Patient was hypotensive in the emergency department and fluid resuscitated and started on vasopressors. Patient will be admitted to the hospital service with COVID-19 PUI, septic shock secondary to pneumonia, pulmonary emboli and acute hypoxic respiratory failure. [facility] and infectious disease were consulted. Patient was started on heparin drip. 03/08: Thrombocytosis question if this is secondary to HIT. We will send out HIT panel. Monitor platelets. Continue heparin drip at this time. 03/09: Patient noted to have Covid positive pneumonia ID input is appreciated patient on dexamethasone for complete 10 days of therapy now started on remdesivir due to hypoxia also to complete 5 days therapy and Actemra a one- time. 03/10: Possible ileus versus bowel obstruction. We will also obtain GI consult if no resolution. Also patient noted to have urinary retention we will proceed with placing a Maya catheter. 03/11: Blood sugar still elevated adjusted nighttime insulin for better coverage. KUB concerning for radiopaque object possible tablet. Was not present on 03 08. We will repeat a KUB in a.m. to see if resolution versus ileus. Continue current management for COVID-19. Continue heparin drip for noted pulmonary embolism. Platelets actually improved despite being on heparin doubt HIT. 03/12: Worsening leukocytosis this could be secondary to steroids. We will give Lasix today in addition to empiric vitamins. 03/13: RN reported the patient did not have a BM since admission and [facility] ordered mag citrate x1. 03/14: SBT trial per [facility], leukocytosis and D-dimer is improving. Patient is hyperglycemic and long-acting insulin dosage has been increased. Patient has pseudohyponatremia today. 03/15: Patient is severely agitated and SBT trial was not attempted today. Patient remains hyperglycemic and insulin has been adjusted accordingly. [facility] will start the patient on Seroquel and attempt to wean propofol. 03/16: Patient still has moments of severe agitation and her Seroquel will be increased today. Patient's urinary catheter was replaced due to retention patient has been started on Flomax. PICC placed 03/17: . Patient was able to follow commands at time of examination. 03/18: SBT today. Lantus decreased as steroids ended today. CCM to give one time dose of lasix. 03/19/2021: Pt self extubated. Placed on CT Hospitalist Physical - Constitutional Vitals: Temp Pulse Resp BP Pulse Ox 99.4 F 101 H 29 H 144/69 100 03/20/21 08:00 03/20/21 07:21 03/20/21 07:21 03/20/21 07:21 03/20/21 08:01 General appearance: Present: no acute distress, well-nourished, obese, other (Intubated and sedated) - EENT Eyes: Present: PERRL, EOM intact ENT: hearing intact, clear oral mucosa, dentition normal - Neck Neck: Present: supple, normal ROM - Respiratory Respiratory effort: normal Respiratory: bilateral: rhonchi - Cardiovascular Heart rate: 110 Rhythm: regular - Extremities Extremities: no ischemia Peripheral Pulses: within normal limits - Abdominal General gastrointestinal: soft, non-tender - Integumentary Integumentary: Present: clear, warm, dry - Psychiatric Psychiatric: agitated - Allied Health Allied health notes reviewed: nursing, PT, ST, OT, RT, social work, case management HEART Score - HEART Score History: Slightly suspicious EKG: Normal Age: 45-65 Risk factors: No known risk factors Troponin: Troponin T 0.085 ng/mL (0.00-0.029) H 03/07/21 20:31 Troponin: < normal limit HEART Score: 1 - Critical Actions Critical Actions: 0-3 pts:0.9-1.7%risk of adverse cardiac event.Candidate for discharge Results - Labs CBC & Chem 7: 03/20/21 Unknown 03/20/21 11:15 Labs: Laboratory Last Values WBC 16.5 K/mm3 (4.5-11.0) H 03/20/21 Unknown RBC 3.99 M/mm3 (3.65-5.03) 03/20/21 Unknown Hgb 11.3 gm/dl (10.1-14.3) 03/20/21 Unknown Hct 34.4 % (30.3-42.9) 03/20/21 Unknown MCV 86 fl (79-97) 03/20/21 Unknown MCH 28 pg (28-32) 03/20/21 Unknown MCHC 33 % (30-34) 03/20/21 Unknown RDW 15.4 % (13.2-15.2) H 03/20/21 Unknown Plt Count 277 K/mm3 (140-440) 03/20/21 Unknown Lymph % (Auto) Expert Medical Writer 03/07/21 21:04 [place] % (Auto) Expert Medical Writer 03/07/21 21:04 Eos % (Auto) Expert Medical Writer 03/07/21 21:04 Baso % (Auto) Expert Medical Writer 03/07/21 21:04 Lymph # (Auto) Expert Medical Writer 03/07/21 21:04 [place] # (Auto) Expert Medical Writer 03/07/21 21:04 Eos # (Auto) Expert Medical Writer 03/07/21 21:04 Baso # (Auto) Expert Medical Writer 03/07/21 21:04 Add Manual Diff Complete 03/10/21 01:12 Total Counted 100 03/10/21 01:12 Seg Neutrophils % Expert Medical Writer 03/10/21 01:12 Seg Neuts % (Manual) 89.0 % (40.0-70.0) H 03/10/21 01:12 Band Neutrophils % 11.0 % 03/09/21 12:10 Lymphocytes % (Manual) 6.0 % (13.4-35.0) L 03/10/21 01:12 Monocytes % (Manual) 5.0 % (0.0-7.3) 03/10/21 01:12 Metamyelocytes % 1.0 % 03/09/21 12:10 Myelocytes % 1.0 % 03/09/21 12:10 Nucleated RBC % Not Reportable 03/10/21 01:12 Seg Neutrophils # Expert Medical Writer 03/07/21 21:04 Seg Neutrophils # Man 20.1 K/mm3 (1.8-7.7) H 03/10/21 01:12 Band Neutrophils # 0.0 K/mm3 03/10/21 01:12 Lymphocytes # (Manual) 1.4 K/mm3 (1.2-5.4) 03/10/21 01:12 Abs React Lymphs (Man) 0.0 K/mm3 03/10/21 01:12 Monocytes # (Manual) 1.1 K/mm3 (0.0-0.8) H 03/10/21 01:12 Eosinophils # (Manual) 0.0 K/mm3 (0.0-0.4) 03/10/21 01:12 Basophils # (Manual) 0.0 K/mm3 (0.0-0.1) 03/10/21 01:12 Metamyelocytes # 0.0 K/mm3 03/10/21 01:12 Myelocytes # 0.0 K/mm3 03/10/21 01:12 Promyelocytes # 0.0 K/mm3 03/10/21 01:12 Blast Cells # 0.0 K/mm3 03/10/21 01:12 WBC Morphology Not Reportable 03/10/21 01:12 Hypersegmented Neuts Not Reportable 03/10/21 01:12 Hyposegmented Neuts Not Reportable 03/10/21 01:12 Hypogranular Neuts Not Reportable 03/10/21 01:12 Smudge Cells Not Reportable 03/10/21 01:12 Toxic Granulation Not Reportable 03/10/21 01:12 Toxic Vacuolation Not Reportable 03/10/21 01:12 Dohle Bodies Not Reportable 03/10/21 01:12 Pelger-Huet Anomaly Not Reportable 03/10/21 01:12 Jarrett Rods Not Reportable 03/10/21 01:12 Platelet Estimate Not Reportable 03/10/21 01:12 Clumped Platelets Not Reportable 03/10/21 01:12 Plt Clumps, EDTA Not Reportable 03/10/21 01:12 Large Platelets Not Reportable 03/10/21 01:12 Giant Platelets Not Reportable 03/10/21 01:12 Platelet Satelliting Not Reportable 03/10/21 01:12 Plt Morphology Comment Not Reportable 03/10/21 01:12 RBC Morphology Normal 03/10/21 01:12 Dimorphic RBCs Not Reportable 03/10/21 01:12 Polychromasia Not Reportable 03/10/21 01:12 Hypochromasia Not Reportable 03/10/21 01:12 Poikilocytosis Not Reportable 03/10/21 01:12 Anisocytosis Not Reportable 03/10/21 01:12 Microcytosis Not Reportable 03/10/21 01:12 Macrocytosis Not Reportable 03/10/21 01:12 Spherocytes Not Reportable 03/10/21 01:12 Pappenheimer Bodies Not Reportable 03/10/21 01:12 Sickle Cells Not Reportable 03/10/21 01:12 Target Cells Not Reportable 03/10/21 01:12 Tear Drop Cells Not Reportable 03/10/21 01:12 Ovalocytes Not Reportable 03/10/21 01:12 Helmet Cells Not Reportable 03/10/21 01:12 [place] Bodies Not Reportable 03/10/21 01:12 [place] Rings Not Reportable 03/10/21 01:12 Brant Cells Not Reportable 03/10/21 01:12 Bite Cells Not Reportable 03/10/21 01:12 Crenated Cell Not Reportable 03/10/21 01:12 Elliptocytes Not Reportable 03/10/21 01:12 Acanthocytes (Spur) Not Reportable 03/10/21 01:12 Rouleaux Not Reportable 03/10/21 01:12 Hemoglobin C Crystals Not Reportable 03/10/21 01:12 Schistocytes Not Reportable 03/10/21 01:12 Malaria parasites Not Reportable 03/10/21 01:12 Joss Bodies Not Reportable 03/10/21 01:12 Hem Pathologist Commnt No 03/10/21 01:12 PT 18.5 Sec. (12.2-14.9) H 03/08/21 07:55 INR 1.49 (0.87-1.13) H 03/08/21 07:55 APTT 113.5 Sec. (24.2-36.6) H* 03/08/21 07:55 D-Dimer 4136.20 ng/mlDDU (0-234) H 03/20/21 Unknown Heparin Anti-Xa Level < 0.10 U.I./ml (0.3-0.7) L 03/17/21 15:35 Heparin Anti-Xa, Unfract Negative (Negative) 03/08/21 13:00 ABG pH 7.437 (7.320-7.450) 03/19/21 04:45 POC ABG pCO2 46.8 mmHg (32.0-48.0) 03/19/21 04:45 ABG pCO2 41.0 mm Hg 03/18/21 10:40 POC ABG pO2 97.0 mmHg (83-108) 03/19/21 04:45 ABG pO2 65.2 mm Hg (80.0-90.0) L 03/18/21 10:40 POC ABG HCO3 30.9 03/19/21 04:45 ABG HCO3 27.5 mmol/L (20.0-26.0) H 03/18/21 10:40 ABG O2 Saturation 97.3 (0-100) 03/19/21 04:45 ABG O2 Content 14.7 (0.0-44) 03/18/21 10:40 POC ABG Base Excess 5.8 03/19/21 04:45 ABG Base Excess 3.2 mmol/L (-2.0-3.0) H 03/18/21 10:40 ABG Hemoglobin 11.4 (12.0-17.5) L 03/19/21 04:45 ABG Oxyhemoglobin 96.1 (94-98) 03/19/21 04:45 ABG Carboxyhemoglobin 1.7 % (0.0-5.0) 03/18/21 10:40 ABG Methemoglobin 0.3 (0.0-1.5) 03/19/21 04:45 ABG Sodium 139.6 mmol/L (136.0-145.0) 03/19/21 04:45 ABG Potassium 3.8 mmol/L (3.40-4.50) 03/19/21 04:45 ABG Chloride 101.0 mmol/L (98-107) 03/19/21 04:45 ABG Glucose 70 mg/dL (65-95) 03/19/21 04:45 Oxyhemoglobin 91.5 % (95.0-99.0) L 03/18/21 10:40 Carboxyhemoglobin 0.9 (0.5-1.5) 03/19/21 04:45 FiO2 35 % 03/18/21 10:40 FiO2 % 45.0 03/19/21 04:45 Sodium 140 mmol/L (137-145) 03/19/21 Unknown Potassium 3.2 mmol/L (3.6-5.0) L 03/19/21 Unknown Chloride 105.0 mmol/L (98-107) 03/19/21 Unknown Carbon Dioxide 27 mmol/L (22-30) 03/19/21 Unknown Anion Gap 11 mmol/L 03/19/21 Unknown BUN 15 mg/dL (7-17) 03/19/21 Unknown Creatinine 0.3 mg/dL (0.6-1.2) L 03/19/21 Unknown Estimated GFR > 60 ml/min 03/19/21 Unknown BUN/Creatinine Ratio 50 % 03/19/21 Unknown Glucose 88 mg/dL (65-100) 03/19/21 Unknown POC Glucose 121 mg/dL (70-105) H 03/20/21 06:28 Lactic Acid 1.90 mmol/L (0.7-2.0) 03/10/21 01:12 Calcium 7.4 mg/dL (8.4-10.2) L D 03/19/21 Unknown Ferritin 131.5 ng/mL (10.0-200.0) 03/20/21 Unknown Total Bilirubin 0.30 mg/dL (0.1-1.2) 03/11/21 04:40 AST 19 units/L (5-40) 03/11/21 04:40 ALT 12 units/L (7-56) 03/11/21 04:40 Alkaline Phosphatase 107 units/L (35-129) 03/11/21 04:40 Lactate Dehydrogenase 512 units/L (91-180) H 03/20/21 Unknown Troponin T 0.085 ng/mL (0.00-0.029) H 03/07/21 20:31 C-Reactive Protein 0.80 mg/dL (0.00-1.30) 03/20/21 Unknown Total Protein 6.1 g/dL (6.3-8.2) L 03/11/21 04:40 Albumin 3.2 g/dL (3.9-5) L 03/11/21 04:40 Albumin/Globulin Ratio 1.1 % 03/11/21 04:40 Triglycerides 136 mg/dL (2-149) 03/17/21 02:00 Cholesterol 141 mg/dL (50-199) 03/07/21 20:31 LDL Cholesterol Direct 72 mg/dL (50-130) 03/07/21 20:31 HDL Cholesterol 34 mg/dL (40-59) L 03/07/21 20:31 Cholesterol/HDL Ratio 4.14 % 03/07/21 20:31 Serotonin Release Assay See scanned result 03/08/21 13:00 Procalcitonin 0.20 ng/mL (<0.15) 03/13/21 08:08 HCG, Qual Negative (Negative) 03/07/21 22:48 Arterial Blood Glucose 70 mg/dL (65-95) 03/19/21 04:45 Arterial Blood Ionized Calcium 4.7 mg/dL (4.6-5.3) 03/19/21 04:45 Urine Color Yellow (Yellow) 03/08/21 05:51 Urine Turbidity Clear (Clear) 03/08/21 05:51 Urine pH 6.0 (5.0-7.0) 03/08/21 05:51 Ur Specific [place] > 1.050 (1.003-1.030) H 03/08/21 05:51 Urine Protein 100 mg/dl mg/dL (Negative) 03/08/21 05:51 Urine Glucose (UA) Neg mg/dL (Negative) 03/08/21 05:51 Urine Ketones Neg mg/dL (Negative) 03/08/21 05:51 Urine Blood Neg (Negative) 03/08/21 05:51 Urine Nitrite Neg (Negative) 03/08/21 05:51 Urine Bilirubin Neg (Negative) 03/08/21 05:51 Urine Urobilinogen 4.0 mg/dL (<2.0) 03/08/21 05:51 Ur Leukocyte Esterase Neg (Negative) 03/08/21 05:51 Urine WBC (Auto) 5.0 /HPF (0.0-6.0) 03/08/21 05:51 Urine RBC (Auto) 5.0 /HPF (0.0-6.0) 03/08/21 05:51 U Epithel Cells (Auto) < 1.0 /HPF (0-13.0) 03/08/21 05:51 Urine Bacteria (Auto) 1+ /HPF (Negative) 03/08/21 05:51 Urine Mucus Few /HPF 03/08/21 05:51 Heparin-induced Plt Ab Negative (Negative) 03/08/21 13:00 UF Heparin High Dose 0 % Release 03/08/21 13:00 JESSY UFH Low Dose 0.1 0 % Release 03/08/21 13:00 JESSY UFH Low Dose 0.5 0 % Release 03/08/21 13:00 Coronavirus (PCR) Positive (Negative) A 03/07/21 Unknown Maya/IV: Voiding Method External Female Catheter Active Medications - Current Medications Current Medications: Generic Name Dose Route Start Last Admin Trade Name Freq PRN Reason Stop Dose Admin Acetaminophen 650 mg 03/10/21 00:30 Acetaminophen 650 Mg Rect Supp GA Q4H PRN Pain, Mild (1-3) Apixaban 5 mg 03/20/21 22:00 Apixaban 5 Mg Tab PO Q12HR [facility] Protocol Ascorbic Acid 1,000 mg 03/12/21 10:00 03/20/21 09:06 Ascorbic Acid 500 Mg Tab PO 1,000 mg BID MARCO ANTONIO Administration Cholecalciferol 5,000 unit 03/12/21 10:00 03/20/21 09:06 Cholecalciferol (Vit D3) 5,000 Unit Tab PO 5,000 unit DAILY [facility] Administration Dextrose 50 ml 03/07/21 22:57 Dextrose 50% In Water (25gm) 50 Ml Syringe IV Q30MIN PRN Hypoglycemia Protocol Famotidine 20 mg 03/13/21 10:00 03/20/21 09:07 Famotidine 20 Mg Tab PO 20 mg BID MARCO ANTONIO Administration Hydrophilic Ointment 1 applic 03/08/21 12:42 Lip Therapy Vaseline TP Q2HR PRN Dry Lips Insulin Glargine 10 units 03/21/21 08:00 Insulin Glargine 100 Units/Ml SUB-Q QAMDIAB [facility] Insulin Human Lispro 0 unit 03/20/21 11:30 Insulin Lispro 100 Unit/Ml SUB-Q ACHS [facility] Protocol Magnesium Hydroxide 30 ml 03/07/21 22:57 03/13/21 10:13 Magnesium Hydroxide (Mom) Oral Liqd Udc PO 30 ml Q4H PRN Administration Constipation Multi-Ingred Cream/Lotion/Oil/Oint 1 applic 03/08/21 12:42 Mineral Oil/Petrolatum, White Ophth Oint 3.5 Gm OU Q4HR PRN Dry Eye(s) Ondansetron HCl 4 mg 06/08/21 22:57 Ondansetron 4 Mg/2 Ml Inj IV Q8H PRN Nausea And Vomiting Senna/Docusate Sodium 1 tab 03/08/21 22:00 03/20/21 09:07 Sennosides/Docusate Sodium 8.6/50 Mg Tab FEEDTUBE 1 tab BID MARCO ANTONIO Administration Sodium Chloride 10 ml 03/08/21 10:00 03/20/21 09:08 Sodium Chloride 0.9% 10 Ml Flush Syringe IV 10 ml BID MARCO ANTONIO Administration Sodium Chloride 10 ml 03/07/21 22:57 Sodium Chloride 0.9% 10 Ml Flush Syringe IV PRN PRN LINE FLUSH Tamsulosin HCl 0.8 mg 03/16/21 17:33 03/20/21 09:06 Tamsulosin 0.4 Mg Cap PO 0.8 mg QDAY MARCO ANTONIO Administration Zinc Sulfate 220 mg 03/12/21 10:00 03/20/21 09:06 Zinc Sulfate 220 Mg Cap PO 220 mg QDAY MARCO ANTONIO Administration Nutrition/Malnutrition Assess - Dietary Evaluation Nutrition/Malnutrition Findings: Nutrition Notes Start: 03/08/21 12:27 Freq: Status: Active Protocol: Document 03/20/21 09:31 TIFFANY (Rec: 03/20/21 09:36 [facility] [id number]) Nutrition Notes Initial or Follow up Reassessment Current Diagnosis Respiratory Failure Other Pertinent Diagnosis COVID-19 (+), pulmonary embolism Current Diet GI soft diet Labs/Tests POC Glu range since last assessment: 74-171 Pertinent Medications Lantus Height 5 ft Weight 102.5 kg [place] Body Weight (kg) 45.45 BMI 44.1 Weight Status Morbidly Obese Subjective/Other Information Pt self-extubated yesterday. Diet advanced for dinner last night. Burn Absent Trauma Absent #1 Nutrition Diagnosis Inadequate oral intake Diagnosis Progress(for reassessment Continues documentation) Is patient on ventilator? No Is Patient Ambulatory and/or Out of Bed No REE-([facility]-confined to bed) 1901.088 Kcal/Kg value to use for calculation 14 Approximate Energy Requirements Using 1435 kcal/Kg Calculation Used for Recommendations Kcal/kg Additional Notes Pro needs up to 2.5g/kg IBW: 114g/day Fluid needs 1ml/kcal Nutrition Intervention Change Diet Order: Continue current diet order Nutrition Support: D/C Vital AF 1.2 if tolerating PO intake Goal #1 PO tolerance Follow-Up By: 03/22/21 Additional Comments F/U: po tolerance, need for TF - Malnutrition Assessment Minimum of two criteria: No physical signs of malnutrition (taking PO will continue to monitor) - Attestation Statement I have reviewed and agreed w/ Malnutrition eval & tx plan: Yes <GIACOMO ROSE - Last Filed: 03/20/21 16:37> Assessment and Plan Assessment and plan: Agree with assessment and plan as outlined by nurse practitioner as above. I personally examined the patient and spoke with her. Also reviewed the chart and spoke with bedside nursing as the plan. Patient has been extubated since yesterday, not tolerating solid food, will change to clear liquid diet. Patient to be transferred to the floor on nasal cannula oxygen. Hospitalist Physical - Constitutional Vitals: Temp Pulse Resp BP Pulse Ox 99.9 F H 102 H 41 H 111/62 95 03/20/21 12:00 03/20/21 16:00 03/20/21 15:00 03/20/21 15:00 03/20/21 15:00 HEART Score - HEART Score Troponin: Troponin T 0.085 ng/mL (0.00-0.029) H 03/07/21 20:31 Results - Labs CBC & Chem 7: 03/20/21 Unknown 03/20/21 11:15 Labs: Laboratory Last Values WBC 16.5 K/mm3 (4.5-11.0) H 03/20/21 Unknown RBC 3.99 M/mm3 (3.65-5.03) 03/20/21 Unknown Hgb 11.3 gm/dl (10.1-14.3) 03/20/21 Unknown Hct 34.4 % (30.3-42.9) 03/20/21 Unknown MCV 86 fl (79-97) 03/20/21 Unknown MCH 28 pg (28-32) 03/20/21 Unknown MCHC 33 % (30-34) 03/20/21 Unknown RDW 15.4 % (13.2-15.2) H 03/20/21 Unknown Plt Count 277 K/mm3 (140-440) 03/20/21 Unknown Lymph % (Auto) Expert Medical Writer 03/07/21 21:04 [place] % (Auto) Expert Medical Writer 03/07/21 21:04 Eos % (Auto) Expert Medical Writer 03/07/21 21:04 Baso % (Auto) Expert Medical Writer 03/07/21 21:04 Lymph # (Auto) Expert Medical Writer 03/07/21 21:04 [place] # (Auto) Expert Medical Writer 03/07/21 21:04 Eos # (Auto) Expert Medical Writer 03/07/21 21:04 Baso # (Auto) Expert Medical Writer 03/07/21 21:04 Add Manual Diff Complete 03/10/21 01:12 Total Counted 100 03/10/21 01:12 Seg Neutrophils % Expert Medical Writer 03/10/21 01:12 Seg Neuts % (Manual) 89.0 % (40.0-70.0) H 03/10/21 01:12 Band Neutrophils % 11.0 % 03/09/21 12:10 Lymphocytes % (Manual) 6.0 % (13.4-35.0) L 03/10/21 01:12 Monocytes % (Manual) 5.0 % (0.0-7.3) 03/10/21 01:12 Metamyelocytes % 1.0 % 03/09/21 12:10 Myelocytes % 1.0 % 03/09/21 12:10 Nucleated RBC % Not Reportable 03/10/21 01:12 Seg Neutrophils # Expert Medical Writer 03/07/21 21:04 Seg Neutrophils # Man 20.1 K/mm3 (1.8-7.7) H 03/10/21 01:12 Band Neutrophils # 0.0 K/mm3 03/10/21 01:12 Lymphocytes # (Manual) 1.4 K/mm3 (1.2-5.4) 03/10/21 01:12 Abs React Lymphs (Man) 0.0 K/mm3 03/10/21 01:12 Monocytes # (Manual) 1.1 K/mm3 (0.0-0.8) H 03/10/21 01:12 Eosinophils # (Manual) 0.0 K/mm3 (0.0-0.4) 03/10/21 01:12 Basophils # (Manual) 0.0 K/mm3 (0.0-0.1) 03/10/21 01:12 Metamyelocytes # 0.0 K/mm3 03/10/21 01:12 Myelocytes # 0.0 K/mm3 03/10/21 01:12 Promyelocytes # 0.0 K/mm3 03/10/21 01:12 Blast Cells # 0.0 K/mm3 03/10/21 01:12 WBC Morphology Not Reportable 03/10/21 01:12 Hypersegmented Neuts Not Reportable 03/10/21 01:12 Hyposegmented Neuts Not Reportable 03/10/21 01:12 Hypogranular Neuts Not Reportable 03/10/21 01:12 Smudge Cells Not Reportable 03/10/21 01:12 Toxic Granulation Not Reportable 03/10/21 01:12 Toxic Vacuolation Not Reportable 03/10/21 01:12 Dohle Bodies Not Reportable 03/10/21 01:12 Pel[place]uet Anomaly Not Reportable 03/10/21 01:12 Jarrett Rods Not Reportable 03/10/21 01:12 Platelet Estimate Not Reportable 03/10/21 01:12 Clumped Platelets Not Reportable 03/10/21 01:12 Plt Clumps, EDTA Not Reportable 03/10/21 01:12 Large Platelets Not Reportable 03/10/21 01:12 Giant Platelets Not Reportable 03/10/21 01:12 Platelet Satelliting Not Reportable 03/10/21 01:12 Plt Morphology Comment Not Reportable 03/10/21 01:12 RBC Morphology Normal 03/10/21 01:12 Dimorphic RBCs Not Reportable 03/10/21 01:12 Polychromasia Not Reportable 03/10/21 01:12 Hypochromasia Not Reportable 03/10/21 01:12 Poikilocytosis Not Reportable 03/10/21 01:12 Anisocytosis Not Reportable 03/10/21 01:12 Microcytosis Not Reportable 03/10/21 01:12 Macrocytosis Not Reportable 03/10/21 01:12 Spherocytes Not Reportable 03/10/21 01:12 Pappenheimer Bodies Not Reportable 03/10/21 01:12 Sickle Cells Not Reportable 03/10/21 01:12 Target Cells Not Reportable 03/10/21 01:12 Tear Drop Cells Not Reportable 03/10/21 01:12 Ovalocytes Not Reportable 03/10/21 01:12 Helmet Cells Not Reportable 03/10/21 01:12 [place] Bodies Not Reportable 03/10/21 01:12 [place] Rings Not Reportable 03/10/21 01:12 [place] Cells Not Reportable 03/10/21 01:12 Bite Cells Not Reportable 03/10/21 01:12 Crenated Cell Not Reportable 03/10/21 01:12 Elliptocytes Not Reportable 03/10/21 01:12 Acanthocytes (Spur) Not Reportable 03/10/21 01:12 Rouleaux Not Reportable 03/10/21 01:12 Hemoglobin C Crystals Not Reportable 03/10/21 01:12 Schistocytes Not Reportable 03/10/21 01:12 Malaria parasites Not Reportable 03/10/21 01:12 Joss Bodies Not Reportable 03/10/21 01:12 Hem Pathologist Commnt No 03/10/21 01:12 PT 15.4 Sec. (12.2-14.9) H 03/20/21 09:44 INR 1.17 (0.87-1.13) H 03/20/21 09:44 APTT 32.2 Sec. (24.2-36.6) 03/20/21 09:44 D-Dimer 4136.20 ng/mlDDU (0-234) H 03/20/21 Unknown Heparin Anti-Xa Level < 0.10 U.I./ml (0.3-0.7) L 03/17/21 15:35 Heparin Anti-Xa, Unfract Negative (Negative) 03/08/21 13:00 ABG pH 7.437 (7.320-7.450) 03/19/21 04:45 POC ABG pCO2 46.8 mmHg (32.0-48.0) 03/19/21 04:45 ABG pCO2 41.0 mm Hg 03/18/21 10:40 POC ABG pO2 97.0 mmHg (83-108) 03/19/21 04:45 ABG pO2 65.2 mm Hg (80.0-90.0) L 03/18/21 10:40 POC ABG HCO3 30.9 03/19/21 04:45 ABG HCO3 27.5 mmol/L (20.0-26.0) H 03/18/21 10:40 ABG O2 Saturation 97.3 (0-100) 03/19/21 04:45 ABG O2 Content 14.7 (0.0-44) 03/18/21 10:40 POC ABG Base Excess 5.8 03/19/21 04:45 ABG Base Excess 3.2 mmol/L (-2.0-3.0) H 03/18/21 10:40 ABG Hemoglobin 11.4 (12.0-17.5) L 03/19/21 04:45 ABG Oxyhemoglobin 96.1 (94-98) 03/19/21 04:45 ABG Carboxyhemoglobin 1.7 % (0.0-5.0) 03/18/21 10:40 ABG Methemoglobin 0.3 (0.0-1.5) 03/19/21 04:45 ABG Sodium 139.6 mmol/L (136.0-145.0) 03/19/21 04:45 ABG Potassium 3.8 mmol/L (3.40-4.50) 03/19/21 04:45 ABG Chloride 101.0 mmol/L (98-107) 03/19/21 04:45 ABG Glucose 70 mg/dL (65-95) 03/19/21 04:45 Oxyhemoglobin 91.5 % (95.0-99.0) L 03/18/21 10:40 Carboxyhemoglobin 0.9 (0.5-1.5) 03/19/21 04:45 FiO2 35 % 03/18/21 10:40 FiO2 % 45.0 03/19/21 04:45 Sodium 140 mmol/L (137-145) 03/19/21 Unknown Potassium 3.2 mmol/L (3.6-5.0) L 03/19/21 Unknown Chloride 105.0 mmol/L (98-107) 03/19/21 Unknown Carbon Dioxide 27 mmol/L (22-30) 03/19/21 Unknown Anion Gap 11 mmol/L 03/19/21 Unknown BUN 15 mg/dL (7-17) 03/19/21 Unknown Creatinine 0.4 mg/dL (0.6-1.2) L 03/20/21 11:15 Estimated GFR > 60 ml/min 03/20/21 11:15 BUN/Creatinine Ratio 50 % 03/19/21 Unknown Glucose 88 mg/dL (65-100) 03/19/21 Unknown POC Glucose 142 mg/dL (70-105) H 03/20/21 12:05 Lactic Acid 1.90 mmol/L (0.7-2.0) 03/10/21 01:12 Calcium 7.4 mg/dL (8.4-10.2) L D 03/19/21 Unknown Ferritin 131.5 ng/mL (10.0-200.0) 03/20/21 Unknown Total Bilirubin 0.30 mg/dL (0.1-1.2) 03/11/21 04:40 AST 19 units/L (5-40) 03/11/21 04:40 ALT 12 units/L (7-56) 03/11/21 04:40 Alkaline Phosphatase 107 units/L (35-129) 03/11/21 04:40 Lactate Dehydrogenase 512 units/L (91-180) H 03/20/21 Unknown Troponin T 0.085 ng/mL (0.00-0.029) H 03/07/21 20:31 C-Reactive Protein 0.80 mg/dL (0.00-1.30) 03/20/21 Unknown Total Protein 6.1 g/dL (6.3-8.2) L 03/11/21 04:40 Albumin 3.2 g/dL (3.9-5) L 03/11/21 04:40 Albumin/Globulin Ratio 1.1 % 03/11/21 04:40 Triglycerides 136 mg/dL (2-149) 03/17/21 02:00 Cholesterol 141 mg/dL (50-199) 03/07/21 20:31 LDL Cholesterol Direct 72 mg/dL (50-130) 03/07/21 20:31 HDL Cholesterol 34 mg/dL (40-59) L 03/07/21 20:31 Cholesterol/HDL Ratio 4.14 % 03/07/21 20:31 Serotonin Release Assay See scanned result 03/08/21 13:00 Procalcitonin 0.20 ng/mL (<0.15) 03/13/21 08:08 HCG, Qual Negative (Negative) 03/07/21 22:48 Arterial Blood Glucose 70 mg/dL (65-95) 03/19/21 04:45 Arterial Blood Ionized Calcium 4.7 mg/dL (4.6-5.3) 03/19/21 04:45 Urine Color Yellow (Yellow) 03/08/21 05:51 Urine Turbidity Clear (Clear) 03/08/21 05:51 Urine pH 6.0 (5.0-7.0) 03/08/21 05:51 Ur Specific [place] > 1.050 (1.003-1.030) H 03/08/21 05:51 Urine Protein 100 mg/dl mg/dL (Negative) 03/08/21 05:51 Urine Glucose (UA) Neg mg/dL (Negative) 03/08/21 05:51 Urine Ketones Neg mg/dL (Negative) 03/08/21 05:51 Urine Blood Neg (Negative) 03/08/21 05:51 Urine Nitrite Neg (Negative) 03/08/21 05:51 Urine Bilirubin Neg (Negative) 03/08/21 05:51 Urine Urobilinogen 4.0 mg/dL (<2.0) 03/08/21 05:51 Ur Leukocyte Esterase Neg (Negative) 03/08/21 05:51 Urine WBC (Auto) 5.0 /HPF (0.0-6.0) 03/08/21 05:51 Urine RBC (Auto) 5.0 /HPF (0.0-6.0) 03/08/21 05:51 U Epithel Cells (Auto) < 1.0 /HPF (0-13.0) 03/08/21 05:51 Urine Bacteria (Auto) 1+ /HPF (Negative) 03/08/21 05:51 Urine Mucus Few /HPF 03/08/21 05:51 Heparin-induced Plt Ab Negative (Negative) 03/08/21 13:00 UF Heparin High Dose 0 % Release 03/08/21 13:00 JESSY UFH Low Dose 0.1 0 % Release 03/08/21 13:00 JESSY UFH Low Dose 0.5 0 % Release 03/08/21 13:00 Coronavirus (PCR) Positive (Negative) A 03/07/21 Unknown Maya/IV: Voiding Method External Female Catheter Active Medications - Current Medications Current Medications: Generic Name Dose Route Start Last Admin Trade Name Freq PRN Reason Stop Dose Admin Acetaminophen 650 mg 03/10/21 00:30 Acetaminophen 650 Mg Rect Supp GA Q4H PRN Pain, Mild (1-3) Albuterol 2.5 mg 03/20/21 12:36 Albuterol 2.5 Mg/3 Ml Nebu IH Q4H PRN Wheezing Apixaban 5 mg 03/20/21 22:00 Apixaban 5 Mg Tab PO Q12HR [facility] Protocol Ascorbic Acid 1,000 mg 03/12/21 10:00 03/20/21 09:06 Ascorbic Acid 500 Mg Tab PO 1,000 mg BID MARCO ANTONIO Administration Bisacodyl 10 mg 03/20/21 20:00 Bisacodyl 10 Mg Rect Supp GA 03/20/21 20:01 ONCE ONE Cholecalciferol 5,000 unit 03/12/21 10:00 03/20/21 09:06 Cholecalciferol (Vit D3) 5,000 Unit Tab PO 5,000 unit DAILY MARCO ANTONIO Administration Dextrose 50 ml 03/07/21 22:57 Dextrose 50% In Water (25gm) 50 Ml Syringe IV Q30MIN PRN Hypoglycemia Protocol Famotidine 20 mg 03/13/21 10:00 03/20/21 09:07 Famotidine 20 Mg Tab PO 20 mg BID MARCO ANTONIO Administration Hydrophilic Ointment 1 applic 03/08/21 12:42 Lip Therapy Vaseline TP Q2HR PRN Dry Lips Insulin Glargine 10 units 03/21/21 08:00 Insulin Glargine 100 Units/Ml SUB-Q QAMDIAB [facility] Insulin Human Lispro 0 unit 03/20/21 11:30 03/20/21 12:28 Insulin Lispro 100 Unit/Ml SUB-Q Not Given ACHS [facility] Protocol Magnesium Hydroxide 30 ml 03/07/21 22:57 03/13/21 10:13 Magnesium Hydroxide (Mom) Oral Liqd Udc PO 30 ml Q4H PRN Administration Constipation Multi-Ingred Cream/Lotion/Oil/Oint 1 applic 03/08/21 12:42 Mineral Oil/Petrolatum, White Ophth Oint 3.5 Gm OU Q4HR PRN Dry Eye(s) Ondansetron HCl 4 mg 03/07/21 22:57 Ondansetron 4 Mg/2 Ml Inj IV Q8H PRN Nausea And Vomiting Phenol 1 spray 03/20/21 11:54 03/20/21 12:42 Phenol 1.4% 177 Ml Bottle MM 1 spray PRN PRN Administration Sore Throat Senna/Docusate Sodium 1 tab 03/08/21 22:00 03/20/21 09:07 Sennosides/Docusate Sodium 8.6/50 Mg Tab FEEDTUBE 1 tab BID MARCO ANTONIO Administration Sodium Chloride 10 ml 06/09/21 10:00 03/20/21 09:08 Sodium Chloride 0.9% 10 Ml Flush Syringe IV 10 ml BID MARCO ANTONIO Administration Sodium Chloride 10 ml 03/07/21 22:57 Sodium Chloride 0.9% 10 Ml Flush Syringe IV PRN PRN LINE FLUSH Tamsulosin HCl 0.8 mg 03/16/21 17:33 03/20/21 09:06 Tamsulosin 0.4 Mg Cap PO 0.8 mg QDAY MARCO ANTONIO Administration Zinc Sulfate 220 mg 03/12/21 10:00 03/20/21 09:06 Zinc Sulfate 220 Mg Cap PO 220 mg QDAY MARCO ANTONIO Administration Nutrition/Malnutrition Assess - Dietary Evaluation Nutrition/Malnutrition Findings: Nutrition Notes Start: 03/08/21 12:27 Freq: Status: Active Protocol: Document 03/20/21 09:31 TIFFANY (Rec: 03/20/21 09:36 [facility] [id number]) Nutrition Notes Initial or Follow up Reassessment Current Diagnosis Respiratory Failure Other Pertinent Diagnosis COVID-19 (+), pulmonary embolism Current Diet GI soft diet Labs/Tests POC Glu range since last assessment: 74-171 Pertinent Medications Lantus Height 5 ft Weight 102.5 kg [place] Body Weight (kg) 45.45 BMI 44.1 Weight Status Morbidly Obese Subjective/Other Information Pt self-extubated yesterday. Diet advanced for dinner last night. Burn Absent Trauma Absent #1 Nutrition Diagnosis Inadequate oral intake Diagnosis Progress(for reassessment Continues documentation) Is patient on ventilator? No Is Patient Ambulatory and/or Out of Bed No REE-([facility]-confined to bed) 1901.088 Kcal/Kg value to use for calculation 14 Approximate Energy Requirements Using 1435 kcal/Kg Calculation Used for Recommendations Kcal/kg Additional Notes Pro needs up to 2.5g/kg IBW: 114g/day Fluid needs 1ml/kcal Nutrition Intervention Change Diet Order: Continue current diet order Nutrition Support: D/C Vital AF 1.2 if tolerating PO intake Goal #1 PO tolerance Follow-Up By: 03/22/21 Additional Comments F/U: po tolerance, need for TF
--- NOTE | 2021-03-20 10:49 | Progress Note ---
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 4.5 L Ur Specific [place] Coronavirus (PCR) 03/14/21 03/14/21 03/14/21 18:18 19:39 22:05 WBC RBC Hgb Hct RDW Plt Count Seg Neuts % (Manual) Lymphocytes % (Manual) Nucleated RBC % Seg Neutrophils # Man Lymphocytes # (Manual) Monocytes # (Manual) PT INR APTT D-Dimer Heparin Anti-Xa Level 0.19 L ABG pH POC ABG pCO2 POC ABG pO2 ABG pO2 ABG HCO3 ABG O2 Saturation ABG Base Excess ABG Hemoglobin ABG Oxyhemoglobin ABG Sodium ABG Potassium ABG Chloride ABG Glucose Oxyhemoglobin Carboxyhemoglobin Sodium Potassium Chloride Carbon Dioxide BUN Creatinine Glucose POC Glucose 299 H 276 H Lactic Acid Calcium Ferritin Lactate Dehydrogenase Troponin T C-Reactive Protein Total Protein Albumin Triglycerides HDL Cholesterol Arterial Blood Glucose Arterial Blood Ionized Calcium Ur Specific [place] Coronavirus (PCR) 03/14/21 03/15/21 03/15/21 23:47 03:10 05:13 WBC RBC Hgb Hct RDW Plt Count Seg Neuts % (Manual) Lymphocytes % (Manual) Nucleated RBC % Seg Neutrophils # Man Lymphocytes # (Manual) Monocytes # (Manual) PT INR APTT D-Dimer Heparin Anti-Xa Level ABG pH 7.515 H POC ABG pCO2 POC ABG pO2 ABG pO2 ABG HCO3 ABG O2 Saturation ABG Base Excess ABG Hemoglobin 11.0 L ABG Oxyhemoglobin ABG Sodium 131.4 L ABG Potassium ABG Chloride 95.0 L ABG Glucose 239 H Oxyhemoglobin Carboxyhemoglobin Sodium Potassium Chloride Carbon Dioxide BUN Creatinine Glucose POC Glucose 344 H 245 H Lactic Acid Calcium Ferritin Lactate Dehydrogenase Troponin T C-Reactive Protein Total Protein Albumin Triglycerides HDL Cholesterol Arterial Blood Glucose 239 H Arterial Blood Ionized Calcium 4.5 L Ur Specific [place] Coronavirus (PCR) 03/15/21 03/15/21 03/15/21 06:00 11:40 17:07 WBC RBC Hgb Hct RDW Plt Count Seg Neuts % (Manual) Lymphocytes % (Manual) Nucleated RBC % Seg Neutrophils # Man Lymphocytes # (Manual) Monocytes # (Manual) PT INR APTT D-Dimer Heparin Anti-Xa Level ABG pH POC ABG pCO2 POC ABG pO2 ABG pO2 ABG HCO3 ABG O2 Saturation ABG Base Excess ABG Hemoglobin ABG Oxyhemoglobin ABG Sodium ABG Potassium ABG Chloride ABG Glucose Oxyhemoglobin Carboxyhemoglobin Sodium 136 L Potassium Chloride 94.6 L Carbon Dioxide 31 H BUN Creatinine 0.3 L Glucose 227 H POC Glucose 224 H 324 H Lactic Acid Calcium Ferritin Lactate Dehydrogenase Troponin T C-Reactive Protein Total Protein Albumin Triglycerides HDL Cholesterol Arterial Blood Glucose Arterial Blood Ionized Calcium Ur Specific [place] Coronavirus (PCR) 03/15/21 03/16/21 03/16/21 23:42 05:49 07:43 WBC 26.2 H RBC Hgb Hct RDW Plt Count Seg Neuts % (Manual) Lymphocytes % (Manual) Nucleated RBC % Seg Neutrophils # Man Lymphocytes # (Manual) Monocytes # (Manual) PT INR APTT D-Dimer Heparin Anti-Xa Level ABG pH POC ABG pCO2 POC ABG pO2 ABG pO2 ABG HCO3 ABG O2 Saturation ABG Base Excess ABG Hemoglobin ABG Oxyhemoglobin ABG Sodium ABG Potassium ABG Chloride ABG Glucose Oxyhemoglobin Carboxyhemoglobin Sodium Potassium Chloride Carbon Dioxide BUN Creatinine Glucose POC Glucose 278 H 216 H Lactic Acid Calcium Ferritin Lactate Dehydrogenase Troponin T C-Reactive Protein Total Protein Albumin Triglycerides HDL Cholesterol Arterial Blood Glucose Arterial Blood Ionized Calcium Ur Specific [place] Coronavirus (PCR) 03/16/21 03/16/21 03/16/21 07:43 07:43 07:43 WBC RBC Hgb Hct RDW Plt Count Seg Neuts % (Manual) Lymphocytes % (Manual) Nucleated RBC % Seg Neutrophils # Man Lymphocytes # (Manual) Monocytes # (Manual) PT INR APTT D-Dimer 4124.04 H Heparin Anti-Xa Level 1.69 H ABG pH POC ABG pCO2 POC ABG pO2 ABG pO2 ABG HCO3 ABG O2 Saturation ABG Base Excess ABG Hemoglobin ABG Oxyhemoglobin ABG Sodium ABG Potassium ABG Chloride ABG Glucose Oxyhemoglobin Carboxyhemoglobin Sodium Potassium Chloride Carbon Dioxide 32 H BUN Creatinine 0.4 L Glucose 230 H POC Glucose Lactic Acid Calcium Ferritin Lactate Dehydrogenase 662 H Troponin T C-Reactive Protein Total Protein Albumin Triglycerides HDL Cholesterol Arterial Blood Glucose Arterial Blood Ionized Calcium Ur Specific [place] Coronavirus (PCR) 03/16/21 03/16/21 03/16/21 07:43 11:00 17:06 WBC RBC Hgb Hct RDW Plt Count Seg Neuts % (Manual) Lymphocytes % (Manual) Nucleated RBC % Seg Neutrophils # Man Lymphocytes # (Manual) Monocytes # (Manual) PT INR APTT D-Dimer Heparin Anti-Xa Level 0.78 H ABG pH POC ABG pCO2 POC ABG pO2 ABG pO2 ABG HCO3 ABG O2 Saturation ABG Base Excess ABG Hemoglobin ABG Oxyhemoglobin ABG Sodium ABG Potassium ABG Chloride ABG Glucose Oxyhemoglobin Carboxyhemoglobin Sodium Potassium Chloride Carbon Dioxide BUN Creatinine Glucose POC Glucose 239 H Lactic Acid Calcium Ferritin Lactate Dehydrogenase Troponin T C-Reactive Protein Total Protein Albumin Triglycerides 173 H HDL Cholesterol Arterial Blood Glucose Arterial Blood Ionized Calcium Ur Specific [place] Coronavirus (PCR) 03/16/21 03/16/21 03/17/21 17:07 23:16 00:37 WBC RBC Hgb Hct RDW Plt Count Seg Neuts % (Manual) Lymphocytes % (Manual) Nucleated RBC % Seg Neutrophils # Man Lymphocytes # (Manual) Monocytes # (Manual) PT INR APTT D-Dimer Heparin Anti-Xa Level 1.14 H ABG pH POC ABG pCO2 POC ABG pO2 ABG pO2 ABG HCO3 ABG O2 Saturation ABG Base Excess ABG Hemoglobin ABG Oxyhemoglobin ABG Sodium ABG Potassium ABG Chloride ABG Glucose Oxyhemoglobin Carboxyhemoglobin Sodium Potassium Chloride Carbon Dioxide BUN Creatinine Glucose POC Glucose 315 H 248 H Lactic Acid Calcium Ferritin Lactate Dehydrogenase Troponin T C-Reactive Protein Total Protein Albumin Triglycerides HDL Cholesterol Arterial Blood Glucose Arterial Blood Ionized Calcium Ur Specific [place] Coronavirus (PCR) 03/17/21 03/17/21 03/17/21 05:24 11:29 15:35 WBC RBC Hgb Hct RDW Plt Count Seg Neuts % (Manual) Lymphocytes % (Manual) Nucleated RBC % Seg Neutrophils # Man Lymphocytes # (Manual) Monocytes # (Manual) PT INR APTT D-Dimer Heparin Anti-Xa Level < 0.10 L ABG pH POC ABG pCO2 POC ABG pO2 ABG pO2 ABG HCO3 ABG O2 Saturation ABG Base Excess ABG Hemoglobin ABG Oxyhemoglobin ABG Sodium ABG Potassium ABG Chloride ABG Glucose Oxyhemoglobin Carboxyhemoglobin Sodium Potassium Chloride Carbon Dioxide BUN Creatinine Glucose POC Glucose 170 H 211 H Lactic Acid Calcium Ferritin Lactate Dehydrogenase Troponin T C-Reactive Protein Total Protein Albumin Triglycerides HDL Cholesterol Arterial Blood Glucose Arterial Blood Ionized Calcium Ur Specific [place] Coronavirus (PCR) 03/17/21 03/17/21 03/18/21 17:36 21:58 00:01 WBC RBC Hgb Hct RDW Plt Count Seg Neuts % (Manual) Lymphocytes % (Manual) Nucleated RBC % Seg Neutrophils # Man Lymphocytes # (Manual) Monocytes # (Manual) PT INR APTT D-Dimer Heparin Anti-Xa Level ABG pH POC ABG pCO2 POC ABG pO2 ABG pO2 ABG HCO3 ABG O2 Saturation ABG Base Excess ABG Hemoglobin ABG Oxyhemoglobin ABG Sodium ABG Potassium ABG Chloride ABG Glucose Oxyhemoglobin Carboxyhemoglobin Sodium Potassium Chloride Carbon Dioxide BUN Creatinine Glucose POC Glucose 281 H 187 H 160 H Lactic Acid Calcium Ferritin Lactate Dehydrogenase Troponin T C-Reactive Protein Total Protein Albumin Triglycerides HDL Cholesterol Arterial Blood Glucose Arterial Blood Ionized Calcium Ur Specific [place] Coronavirus (PCR) 03/18/21 03/18/21 03/18/21 03:30 03:30 03:30 WBC 20.0 H RBC 3.63 L Hgb Hct RDW 15.7 H Plt Count Seg Neuts % (Manual) Lymphocytes % (Manual) Nucleated RBC % Seg Neutrophils # Man Lymphocytes # (Manual) Monocytes # (Manual) PT INR APTT D-Dimer 3430.09 H Heparin Anti-Xa Level ABG pH POC ABG pCO2 POC ABG pO2 ABG pO2 ABG HCO3 ABG O2 Saturation ABG Base Excess ABG Hemoglobin ABG Oxyhemoglobin ABG Sodium ABG Potassium ABG Chloride ABG Glucose Oxyhemoglobin Carboxyhemoglobin Sodium Potassium Chloride Carbon Dioxide BUN Creatinine 0.3 L Glucose 145 H POC Glucose Lactic Acid Calcium Ferritin Lactate Dehydrogenase 501 H Troponin T C-Reactive Protein Total Protein Albumin Triglycerides HDL Cholesterol Arterial Blood Glucose Arterial Blood Ionized Calcium Ur Specific [place] Coronavirus (PCR) 03/18/21 03/18/21 03/18/21 10:40 12:12 17:52 WBC RBC Hgb Hct RDW Plt Count Seg Neuts % (Manual) Lymphocytes % (Manual) Nucleated RBC % Seg Neutrophils # Man Lymphocytes # (Manual) Monocytes # (Manual) PT INR APTT D-Dimer Heparin Anti-Xa Level ABG pH POC ABG pCO2 POC ABG pO2 ABG pO2 65.2 L ABG HCO3 27.5 H ABG O2 Saturation 93.6 L ABG Base Excess 3.2 H ABG Hemoglobin 11.4 L ABG Oxyhemoglobin ABG Sodium ABG Potassium ABG Chloride ABG Glucose Oxyhemoglobin 91.5 L Carboxyhemoglobin Sodium Potassium Chloride Carbon Dioxide BUN Creatinine Glucose POC Glucose 171 H 145 H Lactic Acid Calcium Ferritin Lactate Dehydrogenase Troponin T C-Reactive Protein Total Protein Albumin Triglycerides HDL Cholesterol Arterial Blood Glucose Arterial Blood Ionized Calcium Ur Specific [place] Coronavirus (PCR) 03/18/21 03/19/21 03/19/21 23:17 04:45 17:00 WBC RBC Hgb Hct RDW Plt Count Seg Neuts % (Manual) Lymphocytes % (Manual) Nucleated RBC % Seg Neutrophils # Man Lymphocytes # (Manual) Monocytes # (Manual) PT INR APTT D-Dimer Heparin Anti-Xa Level ABG pH POC ABG pCO2 POC ABG pO2 ABG pO2 ABG HCO3 ABG O2 Saturation ABG Base Excess ABG Hemoglobin 11.4 L ABG Oxyhemoglobin ABG Sodium ABG Potassium ABG Chloride ABG Glucose Oxyhemoglobin Carboxyhemoglobin Sodium Potassium Chloride Carbon Dioxide BUN Creatinine Glucose POC Glucose 160 H 110 H Lactic Acid Calcium Ferritin Lactate Dehydrogenase Troponin T C-Reactive Protein Total Protein Albumin Triglycerides HDL Cholesterol Arterial Blood Glucose Arterial Blood Ionized Calcium Ur Specific [place] Coronavirus (PCR) 03/19/21 03/19/21 03/20/21 23:46 Unknown 06:28 WBC RBC Hgb Hct RDW Plt Count Seg Neuts % (Manual) Lymphocytes % (Manual) Nucleated RBC % Seg Neutrophils # Man Lymphocytes # (Manual) Monocytes # (Manual) PT INR APTT D-Dimer Heparin Anti-Xa Level ABG pH POC ABG pCO2 POC ABG pO2 ABG pO2 ABG HCO3 ABG O2 Saturation ABG Base Excess ABG Hemoglobin ABG Oxyhemoglobin ABG Sodium ABG Potassium ABG Chloride ABG Glucose Oxyhemoglobin Carboxyhemoglobin Sodium Potassium 3.2 L Chloride Carbon Dioxide BUN Creatinine 0.3 L Glucose POC Glucose 108 H 121 H Lactic Acid Calcium 7.4 L D Ferritin Lactate Dehydrogenase Troponin T C-Reactive Protein Total Protein Albumin Triglycerides HDL Cholesterol Arterial Blood Glucose Arterial Blood Ionized Calcium Ur Specific [place] Coronavirus (PCR) 03/20/21 03/20/21 03/20/21 Unknown Unknown Unknown WBC 16.5 H RBC Hgb Hct RDW 15.4 H Plt Count Seg Neuts % (Manual) Lymphocytes % (Manual) Nucleated RBC % Seg Neutrophils # Man Lymphocytes # (Manual) Monocytes # (Manual) PT INR APTT D-Dimer 4136.20 H Heparin Anti-Xa Level ABG pH POC ABG pCO2 POC ABG pO2 ABG pO2 ABG HCO3 ABG O2 Saturation ABG Base Excess ABG Hemoglobin ABG Oxyhemoglobin ABG Sodium ABG Potassium ABG Chloride ABG Glucose Oxyhemoglobin Carboxyhemoglobin Sodium Potassium Chloride Carbon Dioxide BUN Creatinine Glucose POC Glucose Lactic Acid Calcium Ferritin Lactate Dehydrogenase 512 H Troponin T C-Reactive Protein Total Protein Albumin Triglycerides HDL Cholesterol Arterial Blood Glucose Arterial Blood Ionized Calcium Ur Specific [place] Coronavirus (PCR) Chest x-ray: image reviewed Allied health notes reviewed: nursing
[2021-03-20 11:51] LABS: INR 1.17 (0.87-1.13)
[2021-03-20 11:52] LABS: Partial Thromboplastin Time 32.2 Sec. (24.2-36.6)
[2021-03-20] MEDS ORDERED: PHENOL 1.4% 177 ML BOTTLE MM PRN (11:54)
--- NOTE | 2021-03-20 11:59 | Progress Note ---
Assessment and Plan Cultures: Blood culture 03/07/2021 no growth Urine culture 03/08/2021 no growth Sputum culture 03/08/2021 Lakshmi Blood culture 03/10/2021 no growth Covid PCR: Positive A/P: 45-year-old female no past medical history admitted with COVID-19 pneumonia and bilateral pulmonary emboli. #Critical COVID-19 pneumonia: Patient presented with 3 days of symptoms, chest x-ray with diffuse bilateral infiltrates, admission O2 sats 50% on room air. Inflammatory markers were elevated, now improving. S/P steroids, remdesivir and Actemra. #Acute hypoxemic respiratory failure: Likely secondary to COVID-19 infection. Remains intubated, FiO2 35% #Bilateral pulmonary emboli: Anticoagulation per primary #Obesity: Associated with worse COVID-19 outcomes. Recs: - S/P steroids, remdesivir and Actemra - WBC slowly downtrending - anticoagulation per ICU/primary team - supportive care and oxygen weaning Micki Arellano MD, FACP [facility] [place] O: [phone] F: [phone] Subjective Date of service: 03/20/21 Principal diagnosis: Ac. hypoxemic resp. failure; Septic Shock; COVID-19 Pneumonia; VTE; NSTEMI Interval history: No fever. Has been extubated to [facility]. Objective - Exam Narrative Exam: Physical Exam (reviewed in chart to minimize risk of transmission) Constitutional: deferred Head, Ears, Nose: deferred Eyes: deferred Neck: deferred Oral: deferred Cardiovascular: deferred Respiratory: deferred GI: deferred Musculoskeletal: deferred Skin: deferred Hem/Lymphatic: deferred Psych: deferred Neurological: deferred - Constitutional Vitals: Vital Signs Temp Pulse Resp BP Pulse Ox 99.4 F 109 H 36 H 111/70 96 03/20/21 08:00 03/20/21 11:31 03/20/21 11:31 03/20/21 11:31 03/20/21 11:31 Temperature -Last 24 Hours Temperature 99.4 F Temperature 98.5 F Temperature 98.7 F Temperature 98.7 F Temperature 98.3 F Temperature 98.0 F - Labs CBC & Chem 7: 03/20/21 Unknown 03/20/21 11:15 Labs: Abnormal lab results 03/19/21 03/19/21 03/20/21 Range/Units 17:00 23:46 06:28 WBC (4.5-11.0) K/mm3 RDW (13.2-15.2) % D-Dimer (0-234) ng/mlDDU Creatinine (0.6-1.2) mg/dL POC Glucose 110 H 108 H 121 H (70-105) mg/dL Lactate Dehydrogenase (91-180) units/L 03/20/21 03/20/21 03/20/21 Range/Units 11:15 Unknown Unknown WBC (4.5-11.0) K/mm3 RDW (13.2-15.2) % D-Dimer 4136.20 H (0-234) ng/mlDDU Creatinine 0.4 L (0.6-1.2) mg/dL POC Glucose (70-105) mg/dL Lactate Dehydrogenase 512 H (91-180) units/L 03/20/21 Range/Units Unknown WBC 16.5 H (4.5-11.0) K/mm3 RDW 15.4 H (13.2-15.2) % D-Dimer (0-234) ng/mlDDU Creatinine (0.6-1.2) mg/dL POC Glucose (70-105) mg/dL Lactate Dehydrogenase (91-180) units/L
[2021-03-20] MEDS ORDERED: ALBUTEROL 2.5 MG/3 ML NEBU IH PRN (12:36)
[2021-03-20 14:45] LABS: Hematocrit 36.1 % (30.3-42.9); Hemoglobin 11.6 gm/dl (10.1-14.3); Mean Corpuscular HGB Conc 32 % (30-34); Mean Corpuscular Volume 87 fl (79-97); Platelet Count 276 K/mm3 (140-440); Red Blood Count 4.15 M/mm3 (3.65-5.03)
[2021-03-20] MEDS: APIXABAN 5 MG TAB PO SCH (23:24)
[2021-03-21] MEDS: INSULIN LISPRO 100 UNIT/ML SUB-Q SCH ×3 (07:51→18:05)
[2021-03-21] MEDS ORDERED: PHENOL 1.4% 177 ML BOTTLE MM PRN (08:00)
[2021-03-21] MEDS: SENNOSIDES/DOCUSATE SODIUM 8.6/50 MG TAB FEEDTUBE SCH ×2 (10:04→22:28)
[2021-03-21] MEDS: ASCORBIC ACID 500 MG TAB PO SCH ×2 (10:04→22:28)
[2021-03-21] MEDS: ZINC SULFATE 220 MG CAP PO SCH (10:04)
[2021-03-21] MEDS: CHOLECALCIFEROL (VIT D3) 5,000 UNIT TAB PO SCH (10:04)
[2021-03-21] MEDS: APIXABAN 5 MG TAB PO SCH ×2 (10:04→22:28)
[2021-03-21] MEDS: FAMOTIDINE 20 MG TAB PO SCH ×2 (10:04→22:28)
[2021-03-21] MEDS: INSULIN GLARGINE 100 UNITS/ML SUB-Q SCH (10:04)
[2021-03-21 10:13] LABS: Hematocrit 32.3 % (30.3-42.9); Hemoglobin 10.5 gm/dl (10.1-14.3); Mean Corpuscular HGB Conc 32 % (30-34); Mean Corpuscular Volume 88 fl (79-97); Platelet Count 224 K/mm3 (140-440); Red Blood Count 3.68 M/mm3 (3.65-5.03); Red Cell Distribution Width 15.7 % (13.2-15.2)
[2021-03-21 10:29] LABS: Alanine Aminotransferase 38 units/L (7-56); Albumin 3.3 g/dL (3.9-5); Blood Urea Nitrogen 11 mg/dL (7-17); Calcium 7.6 mg/dL (8.4-10.2); Hemolysis Index 3
[2021-03-21 10:34] LABS: BUN/Creatinine Ratio 37
--- NOTE | 2021-03-21 10:58 | Progress Note ---
Assessment and Plan Patient awake. Still complaining shortness of breath and chest pain. Patient not keeping her O2. O2 saturation 85%. Placed her back on 4 litres o2. O2 saturation came up to 95%. Stressed the importance of keeping O2 all the time. Patient a febrile. No leukocytosis. Blood pressre 103/57. Chest xray done 03/19/21 reported Diffuse bilateral pulmonary opacities. Patient has CTA chest on 03/07/21 reported Multiple small peripheral bilateral l ower lobe pulmonary emboli are present. Diffuse severe bilateral pulmonary opacities most likely related to severe bilateral pneumonia. Patient is on Apixaban, Famotidine and albuterol inhaler. - Patient Problems (1) Acute respiratory failure with hypoxemia Current Visit: Yes Status: Acute Plan to address problem: Patient intubated and extubated. Patient is on 4 litres o2. o2 saturation 95% Albuterol inhaler 2 puffs po qid. (2) Coronavirus infection Current Visit: Yes Status: Acute Plan to address problem: Patients [place] virus PCR Positive. Management as per infectious diseases. (3) Pneumonia due to coronavirus disease 2019 Current Visit: Yes Status: Acute Plan to address problem: Patient was treated with Zithromax, Ceftriaxone,Vancomycin. (4) Pulmonary embolism Current Visit: Yes Status: Acute Plan to address problem: Patient is on Apixaban. Subjective Date of service: 03/21/21 Principal diagnosis: Ac. hypoxemic resp. failure; Septic Shock; COVID-19 Pneumonia; VTE; NSTEMI Interval history: Patient awake. Still complaining shortness of breath and chest pain. Patient not keeping her O2. O2 saturation 85%. Placed her back on 4 litres o2. O2 saturation came up to 95%. Stressed the importance of keeping O2 all the time. Patient afebrile. No leukocytosis. Blood pressre 103/57. Chest xray done 03/19/21 reported Diffuse bilateral pulmonary opacities. Patient has CTA chest on 03/07/21 reported Multiple small peripheral bilateral lower lobe pulmonary emboli are present. Diffuse severe bilateral pulmonary opacities most likely related to severe bilateral pneumonia. Patient is on Apixaban, Famotidine and albuterol inhaler. Objective Vital Signs - 12hr 03/21/21 04:15 Temperature 98.7 F Pulse Rate 84 Respiratory 18 Rate Blood Pressure 103/57 O2 Sat by Pulse 86 Oximetry Constitutional: alert, appears uncomfortable Eyes: non-icteric ENT: oropharynx dry Neck: supple, no lymphadenopathy, other (large circumference) Effort: mildly labored Ascultation: Bilateral: diminished breath sounds, rales (bases anteriorly) Percussion: Bilateral: not dull Cardiovascular: regular rate and rhythm, other (S1,S2) Gastrointestinal: normoactive bowel sounds, soft, non-tender, non-distended (protuberant) Integumentary: normal Extremities: no cyanosis, pink and warm, pulses normal, edema (1+ bilateral lower and upper extremites) Neurologic: normal mental status, non-focal exam (moves all extremities), pupils equal and round, CN II-XII normal, motor strength normal and Psychiatric: affect normal, anxious, other CBC and BMP: 03/21/21 10:00 03/21/21 10:00 ABG, PT/INR, D-dimer: ABG ABG pH 7.437 (7.320-7.450) 03/19/21 04:45 POC ABG pCO2 46.8 mmHg (32.0-48.0) 03/19/21 04:45 ABG pCO2 41.0 mm Hg 03/18/21 10:40 POC ABG pO2 97.0 mmHg (83-108) 03/19/21 04:45 ABG pO2 65.2 mm Hg (80.0-90.0) L 03/18/21 10:40 POC ABG HCO3 30.9 03/19/21 04:45 ABG O2 Saturation 97.3 (0-100) 03/19/21 04:45 PT/INR, D-dimer PT 15.4 Sec. (12.2-14.9) H 03/20/21 09:44 INR 1.17 (0.87-1.13) H 03/20/21 09:44 D-Dimer 4136.20 ng/mlDDU (0-234) H 03/20/21 Unknown Abnormal lab findings: Abnormal Labs 03/07/21 03/07/21 03/07/21 13:00 20:31 20:31 WBC RBC Hgb Hct RDW Plt Count Seg Neuts % (Manual) Lymphocytes % (Manual) Nucleated RBC % Seg Neutrophils # Man Lymphocytes # (Manual) Monocytes # (Manual) PT INR APTT D-Dimer > 58756 H Heparin Anti-Xa Level ABG pH POC ABG pCO2 POC ABG pO2 ABG pO2 ABG HCO3 ABG O2 Saturation ABG Base Excess ABG Hemoglobin ABG Oxyhemoglobin ABG Sodium ABG Potassium ABG Chloride ABG Glucose Oxyhemoglobin Carboxyhemoglobin Sodium 133 L Potassium Chloride 94.6 L Carbon Dioxide 17 L BUN 22 H Creatinine Glucose 309 H POC Glucose Lactic Acid 5.10 H* Calcium Ferritin Lactate Dehydrogenase Troponin T 0.085 H C-Reactive Protein Total Protein Albumin 3.5 L Triglycerides 213 H HDL Cholesterol 34 L Arterial Blood Glucose Arterial Blood Ionized Calcium Ur Specific [place] Coronavirus (PCR) 03/07/21 03/07/21 03/07/21 20:31 21:04 21:28 WBC 31.6 H RBC Hgb Hct RDW 15.3 H Plt Count Seg Neuts % (Manual) 73.0 H Lymphocytes % (Manual) 11.5 L Nucleated RBC % 7.0 H Seg Neutrophils # Man 23.1 H Lymphocytes # (Manual) Monocytes # (Manual) 1.7 H PT INR APTT D-Dimer > 32398 H Heparin Anti-Xa Level ABG pH POC ABG pCO2 POC ABG pO2 ABG pO2 ABG HCO3 ABG O2 Saturation ABG Base Excess ABG Hemoglobin ABG Oxyhemoglobin ABG Sodium ABG Potassium ABG Chloride ABG Glucose Oxyhemoglobin Carboxyhemoglobin Sodium Potassium Chloride Carbon Dioxide BUN Creatinine Glucose 301 H POC Glucose Lactic Acid Calcium Ferritin Lactate Dehydrogenase 1259 H Troponin T C-Reactive Protein 25.50 H Total Protein Albumin Triglycerides HDL Cholesterol Arterial Blood Glucose Arterial Blood Ionized Calcium Ur Specific [place] Coronavirus (PCR) 03/07/21 03/07/21 03/07/21 21:28 22:48 Unknown WBC RBC Hgb Hct RDW Plt Count Seg Neuts % (Manual) Lymphocytes % (Manual) Nucleated RBC % Seg Neutrophils # Man Lymphocytes # (Manual) Monocytes # (Manual) PT INR APTT D-Dimer Heparin Anti-Xa Level ABG pH POC ABG pCO2 POC ABG pO2 ABG pO2 ABG HCO3 ABG O2 Saturation ABG Base Excess ABG Hemoglobin ABG Oxyhemoglobin ABG Sodium ABG Potassium ABG Chloride ABG Glucose Oxyhemoglobin Carboxyhemoglobin Sodium Potassium Chloride Carbon Dioxide BUN Creatinine Glucose POC Glucose Lactic Acid 6.00 H* 3.40 H* Calcium Ferritin Lactate Dehydrogenase Troponin T C-Reactive Protein Total Protein Albumin Triglycerides HDL Cholesterol Arterial Blood Glucose Arterial Blood Ionized Calcium Ur Specific [place] Coronavirus (PCR) Positive A 03/07/21 03/08/21 03/08/21 Unknown 05:51 06:18 WBC 27.5 H RBC Hgb Hct RDW Plt Count 108 L Seg Neuts % (Manual) 85.0 H Lymphocytes % (Manual) 1.0 L Nucleated RBC % 7.0 H Seg Neutrophils # Man 23.4 H Lymphocytes # (Manual) 0.3 L Monocytes # (Manual) PT INR APTT D-Dimer Heparin Anti-Xa Level ABG pH 7.338 L POC ABG pCO2 POC ABG pO2 ABG pO2 62.6 L ABG HCO3 ABG O2 Saturation 89.1 L ABG Base Excess -4.7 L ABG Hemoglobin ABG Oxyhemoglobin ABG Sodium ABG Potassium ABG Chloride ABG Glucose Oxyhemoglobin 87.3 L Carboxyhemoglobin Sodium Potassium Chloride Carbon Dioxide BUN Creatinine Glucose POC Glucose Lactic Acid Calcium Ferritin Lactate Dehydrogenase Troponin T C-Reactive Protein Total Protein Albumin Triglycerides HDL Cholesterol Arterial Blood Glucose Arterial Blood Ionized Calcium Ur Specific [place] > 1.050 H Coronavirus (PCR) 03/08/21 03/08/21 03/08/21 06:18 06:18 07:29 WBC RBC Hgb Hct RDW Plt Count Seg Neuts % (Manual) Lymphocytes % (Manual) Nucleated RBC % Seg Neutrophils # Man Lymphocytes # (Manual) Monocytes # (Manual) PT 20.3 H INR 1.69 H APTT D-Dimer Heparin Anti-Xa Level ABG pH POC ABG pCO2 POC ABG pO2 ABG pO2 ABG HCO3 ABG O2 Saturation ABG Base Excess ABG Hemoglobin ABG Oxyhemoglobin ABG Sodium ABG Potassium ABG Chloride ABG Glucose Oxyhemoglobin Carboxyhemoglobin Sodium Potassium Chloride Carbon Dioxide BUN 21 H Creatinine Glucose 188 H POC Glucose 192 H Lactic Acid Calcium 6.8 L D Ferritin Lactate Dehydrogenase Troponin T C-Reactive Protein Total Protein Albumin Triglycerides HDL Cholesterol Arterial Blood Glucose Arterial Blood Ionized Calcium Ur Specific [place] Coronavirus (PCR) 03/08/21 03/08/21 03/08/21 07:55 08:06 11:35 WBC RBC Hgb Hct RDW Plt Count Seg Neuts % (Manual) Lymphocytes % (Manual) Nucleated RBC % Seg Neutrophils # Man Lymphocytes # (Manual) Monocytes # (Manual) PT 18.5 H INR 1.49 H APTT 113.5 H* D-Dimer Heparin Anti-Xa Level ABG pH 7.311 L POC ABG pCO2 POC ABG pO2 ABG pO2 ABG HCO3 ABG O2 Saturation ABG Base Excess ABG Hemoglobin 11.8 L ABG Oxyhemoglobin ABG Sodium ABG Potassium ABG Chloride 111.0 H ABG Glucose 176 H Oxyhemoglobin Carboxyhemoglobin 0.4 L Sodium Potassium Chloride Carbon Dioxide BUN Creatinine Glucose POC Glucose 142 H Lactic Acid Calcium Ferritin Lactate Dehydrogenase Troponin T C-Reactive Protein Total Protein Albumin Triglycerides HDL Cholesterol Arterial Blood Glucose 176 H Arterial Blood Ionized Calcium 4.1 L Ur Specific [place] Coronavirus (PCR) 03/08/21 03/08/21 03/08/21 13:00 16:59 21:00 WBC RBC Hgb Hct RDW Plt Count Seg Neuts % (Manual) Lymphocytes % (Manual) Nucleated RBC % Seg Neutrophils # Man Lymphocytes # (Manual) Monocytes # (Manual) PT INR APTT D-Dimer Heparin Anti-Xa Level 0.22 L ABG pH POC ABG pCO2 30.1 L POC ABG pO2 74.9 L ABG pO2 ABG HCO3 ABG O2 Saturation ABG Base Excess ABG Hemoglobin 10.0 L ABG Oxyhemoglobin 93.8 L ABG Sodium ABG Potassium ABG Chloride 113.0 H ABG Glucose 250 H Oxyhemoglobin Carboxyhemoglobin 0.3 L Sodium Potassium Chloride Carbon Dioxide BUN Creatinine Glucose POC Glucose 196 H Lactic Acid Calcium Ferritin Lactate Dehydrogenase Troponin T C-Reactive Protein Total Protein Albumin Triglycerides HDL Cholesterol Arterial Blood Glucose 250 H Arterial Blood Ionized Calcium 4.0 L Ur Specific [place] Coronavirus (PCR) 03/08/21 03/08/21 03/09/21 21:19 21:30 03:14 WBC RBC Hgb Hct RDW Plt Count Seg Neuts % (Manual) Lymphocytes % (Manual) Nucleated RBC % Seg Neutrophils # Man Lymphocytes # (Manual) Monocytes # (Manual) PT INR APTT D-Dimer Heparin Anti-Xa Level 0.16 L ABG pH POC ABG pCO2 31.0 L POC ABG pO2 80.4 L ABG pO2 ABG HCO3 ABG O2 Saturation ABG Base Excess ABG Hemoglobin 9.4 L ABG Oxyhemoglobin ABG Sodium ABG Potassium ABG Chloride 114.0 H ABG Glucose 249 H Oxyhemoglobin Carboxyhemoglobin 0.3 L Sodium Potassium Chloride Carbon Dioxide BUN Creatinine Glucose POC Glucose 250 H Lactic Acid Calcium Ferritin Lactate Dehydrogenase Troponin T C-Reactive Protein Total Protein Albumin Triglycerides HDL Cholesterol Arterial Blood Glucose 249 H Arterial Blood Ionized Calcium 4.1 L Ur Specific [place] Coronavirus (PCR) 03/09/21 03/09/21 03/09/21 05:26 06:31 11:25 WBC RBC Hgb Hct RDW Plt Count Seg Neuts % (Manual) Lymphocytes % (Manual) Nucleated RBC % Seg Neutrophils # Man Lymphocytes # (Manual) Monocytes # (Manual) PT INR APTT D-Dimer Heparin Anti-Xa Level ABG pH POC ABG pCO2 POC ABG pO2 ABG pO2 ABG HCO3 ABG O2 Saturation ABG Base Excess ABG Hemoglobin ABG Oxyhemoglobin ABG Sodium ABG Potassium ABG Chloride ABG Glucose Oxyhemoglobin Carboxyhemoglobin Sodium Potassium Chloride 110.6 H Carbon Dioxide 20 L BUN 22 H Creatinine Glucose 244 H POC Glucose 217 H 235 H Lactic Acid Calcium 6.7 L Ferritin Lactate Dehydrogenase Troponin T C-Reactive Protein Total Protein 5.6 L D Albumin 2.5 L Triglycerides HDL Cholesterol Arterial Blood Glucose Arterial Blood Ionized Calcium Ur Specific [place] Coronavirus (PCR) 03/09/21 03/09/21 03/09/21 12:10 17:29 23:13 WBC 24.1 H RBC 3.29 L Hgb 9.3 L Hct 28.7 L RDW 15.5 H Plt Count Seg Neuts % (Manual) 84.0 H Lymphocytes % (Manual) 1.0 L Nucleated RBC % 3.0 H Seg Neutrophils # Man 20.2 H Lymphocytes # (Manual) 0.2 L Monocytes # (Manual) PT INR APTT D-Dimer Heparin Anti-Xa Level ABG pH POC ABG pCO2 POC ABG pO2 ABG pO2 ABG HCO3 ABG O2 Saturation ABG Base Excess ABG Hemoglobin ABG Oxyhemoglobin ABG Sodium ABG Potassium ABG Chloride ABG Glucose Oxyhemoglobin Carboxyhemoglobin Sodium Potassium Chloride Carbon Dioxide BUN Creatinine Glucose POC Glucose 279 H 284 H Lactic Acid Calcium Ferritin Lactate Dehydrogenase Troponin T C-Reactive Protein Total Protein Albumin Triglycerides HDL Cholesterol Arterial Blood Glucose Arterial Blood Ionized Calcium Ur Specific [place] Coronavirus (PCR) 03/10/21 03/10/21 03/10/21 01:12 03:29 04:32 WBC 22.6 H 21.5 H RBC 3.31 L 3.33 L Hgb 9.3 L 9.4 L Hct 28.9 L 28.9 L RDW 15.3 H Plt Count Seg Neuts % (Manual) 89.0 H Lymphocytes % (Manual) 6.0 L Nucleated RBC % Seg Neutrophils # Man 20.1 H Lymphocytes # (Manual) Monocytes # (Manual) 1.1 H PT INR APTT D-Dimer Heparin Anti-Xa Level ABG pH POC ABG pCO2 26.7 L POC ABG pO2 148.7 H ABG pO2 ABG HCO3 ABG O2 Saturation ABG Base Excess ABG Hemoglobin 9.5 L ABG Oxyhemoglobin 98.3 H ABG Sodium ABG Potassium 4.7 H ABG Chloride 114.0 H ABG Glucose 263 H Oxyhemoglobin Carboxyhemoglobin 0.3 L Sodium Potassium Chloride Carbon Dioxide BUN Creatinine Glucose POC Glucose Lactic Acid Calcium Ferritin Lactate Dehydrogenase Troponin T C-Reactive Protein Total Protein Albumin Triglycerides HDL Cholesterol Arterial Blood Glucose 263 H Arterial Blood Ionized Calcium 4.4 L Ur Specific [place] Coronavirus (PCR) 03/10/21 03/10/21 03/10/21 04:32 04:32 05:26 WBC RBC Hgb Hct RDW Plt Count Seg Neuts % (Manual) Lymphocytes % (Manual) Nucleated RBC % Seg Neutrophils # Man Lymphocytes # (Manual) Monocytes # (Manual) PT INR APTT D-Dimer Heparin Anti-Xa Level ABG pH POC ABG pCO2 POC ABG pO2 ABG pO2 ABG HCO3 ABG O2 Saturation ABG Base Excess ABG Hemoglobin ABG Oxyhemoglobin ABG Sodium ABG Potassium ABG Chloride ABG Glucose Oxyhemoglobin Carboxyhemoglobin Sodium Potassium Chloride 112.2 H 111.0 H Carbon Dioxide 21 L 21 L BUN 24 H 25 H Creatinine Glucose 262 H 258 H POC Glucose 246 H Lactic Acid Calcium 7.5 L 7.3 L Ferritin Lactate Dehydrogenase Troponin T C-Reactive Protein Total Protein 5.8 L Albumin 2.8 L Triglycerides HDL Cholesterol Arterial Blood Glucose Arterial Blood Ionized Calcium Ur Specific [place] Coronavirus (PCR) 03/10/21 03/10/21 03/10/21 11:50 17:18 21:39 WBC RBC Hgb Hct RDW Plt Count Seg Neuts % (Manual) Lymphocytes % (Manual) Nucleated RBC % Seg Neutrophils # Man Lymphocytes # (Manual) Monocytes # (Manual) PT INR APTT D-Dimer Heparin Anti-Xa Level ABG pH POC ABG pCO2 POC ABG pO2 ABG pO2 ABG HCO3 ABG O2 Saturation ABG Base Excess ABG Hemoglobin ABG Oxyhemoglobin ABG Sodium ABG Potassium ABG Chloride ABG Glucose Oxyhemoglobin Carboxyhemoglobin Sodium Potassium Chloride Carbon Dioxide BUN Creatinine Glucose POC Glucose 234 H 248 H 242 H Lactic Acid Calcium Ferritin Lactate Dehydrogenase Troponin T C-Reactive Protein Total Protein Albumin Triglycerides HDL Cholesterol Arterial Blood Glucose Arterial Blood Ionized Calcium Ur Specific [place] Coronavirus (PCR) 03/10/21 03/11/21 03/11/21 22:39 02:12 04:40 WBC RBC Hgb Hct RDW Plt Count Seg Neuts % (Manual) Lymphocytes % (Manual) Nucleated RBC % Seg Neutrophils # Man Lymphocytes # (Manual) Monocytes # (Manual) PT INR APTT D-Dimer Heparin Anti-Xa Level ABG pH 7.481 H POC ABG pCO2 27.3 L POC ABG pO2 180.2 H ABG pO2 ABG HCO3 ABG O2 Saturation ABG Base Excess ABG Hemoglobin 11.2 L ABG Oxyhemoglobin 99.1 H ABG Sodium ABG Potassium ABG Chloride 111.0 H ABG Glucose 311 H Oxyhemoglobin Carboxyhemoglobin 0.2 L Sodium Potassium Chloride 108.6 H Carbon Dioxide 21 L BUN 23 H Creatinine Glucose 276 H POC Glucose 245 H Lactic Acid Calcium 8.0 L Ferritin Lactate Dehydrogenase Troponin T C-Reactive Protein Total Protein 6.1 L Albumin 3.2 L Triglycerides HDL Cholesterol Arterial Blood Glucose 311 H Arterial Blood Ionized Calcium 4.5 L Ur Specific [place] Coronavirus (PCR) 03/11/21 03/11/21 03/11/21 04:55 12:35 18:15 WBC RBC Hgb Hct RDW Plt Count Seg Neuts % (Manual) Lymphocytes % (Manual) Nucleated RBC % Seg Neutrophils # Man Lymphocytes # (Manual) Monocytes # (Manual) PT INR APTT D-Dimer Heparin Anti-Xa Level ABG pH POC ABG pCO2 POC ABG pO2 ABG pO2 ABG HCO3 ABG O2 Saturation ABG Base Excess ABG Hemoglobin ABG Oxyhemoglobin ABG Sodium ABG Potassium ABG Chloride ABG Glucose Oxyhemoglobin Carboxyhemoglobin Sodium Potassium Chloride Carbon Dioxide BUN Creatinine Glucose POC Glucose 260 H 273 H 283 H Lactic Acid Calcium Ferritin Lactate Dehydrogenase Troponin T C-Reactive Protein Total Protein Albumin Triglycerides HDL Cholesterol Arterial Blood Glucose Arterial Blood Ionized Calcium Ur Specific [place] Coronavirus (PCR) 03/11/21 03/12/21 03/12/21 23:17 04:00 05:39 WBC RBC Hgb Hct RDW Plt Count Seg Neuts % (Manual) Lymphocytes % (Manual) Nucleated RBC % Seg Neutrophils # Man Lymphocytes # (Manual) Monocytes # (Manual) PT INR APTT D-Dimer Heparin Anti-Xa Level ABG pH 7.463 H POC ABG pCO2 30.9 L POC ABG pO2 ABG pO2 ABG HCO3 ABG O2 Saturation ABG Base Excess ABG Hemoglobin 10.7 L ABG Oxyhemoglobin ABG Sodium ABG Potassium ABG Chloride ABG Glucose 310 H Oxyhemoglobin Carboxyhemoglobin 0.3 L Sodium Potassium Chloride Carbon Dioxide BUN Creatinine Glucose POC Glucose 280 H 278 H Lactic Acid Calcium Ferritin Lactate Dehydrogenase Troponin T C-Reactive Protein Total Protein Albumin Triglycerides HDL Cholesterol Arterial Blood Glucose 310 H Arterial Blood Ionized Calcium Ur Specific [place] Coronavirus (PCR) 03/12/21 03/12/21 03/12/21 05:52 05:52 13:02 WBC 41.7 H* RBC Hgb Hct RDW Plt Count Seg Neuts % (Manual) Lymphocytes % (Manual) Nucleated RBC % Seg Neutrophils # Man Lymphocytes # (Manual) Monocytes # (Manual) PT INR APTT D-Dimer Heparin Anti-Xa Level ABG pH POC ABG pCO2 POC ABG pO2 ABG pO2 ABG HCO3 ABG O2 Saturation ABG Base Excess ABG Hemoglobin ABG Oxyhemoglobin ABG Sodium ABG Potassium ABG Chloride ABG Glucose Oxyhemoglobin Carboxyhemoglobin Sodium Potassium Chloride 107.5 H Carbon Dioxide BUN Creatinine 0.5 L Glucose 297 H POC Glucose 345 H Lactic Acid Calcium 8.1 L Ferritin Lactate Dehydrogenase Troponin T C-Reactive Protein Total Protein Albumin Triglycerides HDL Cholesterol Arterial Blood Glucose Arterial Blood Ionized Calcium Ur Specific [place] Coronavirus (PCR) 03/12/21 03/12/21 03/13/21 17:11 23:32 04:00 WBC RBC Hgb Hct RDW Plt Count Seg Neuts % (Manual) Lymphocytes % (Manual) Nucleated RBC % Seg Neutrophils # Man Lymphocytes # (Manual) Monocytes # (Manual) PT INR APTT D-Dimer Heparin Anti-Xa Level 0.29 L ABG pH POC ABG pCO2 POC ABG pO2 ABG pO2 ABG HCO3 ABG O2 Saturation ABG Base Excess ABG Hemoglobin ABG Oxyhemoglobin ABG Sodium ABG Potassium ABG Chloride ABG Glucose Oxyhemoglobin Carboxyhemoglobin Sodium Potassium Chloride Carbon Dioxide BUN Creatinine Glucose POC Glucose 383 H 282 H Lactic Acid Calcium Ferritin Lactate Dehydrogenase Troponin T C-Reactive Protein Total Protein Albumin Triglycerides HDL Cholesterol Arterial Blood Glucose Arterial Blood Ionized Calcium Ur Specific [place] Coronavirus (PCR) 03/13/21 03/13/21 03/13/21 04:00 04:00 05:28 WBC 32.9 H RBC Hgb Hct RDW Plt Count Seg Neuts % (Manual) Lymphocytes % (Manual) Nucleated RBC % Seg Neutrophils # Man Lymphocytes # (Manual) Monocytes # (Manual) PT INR APTT D-Dimer Heparin Anti-Xa Level ABG pH POC ABG pCO2 POC ABG pO2 ABG pO2 ABG HCO3 ABG O2 Saturation ABG Base Excess ABG Hemoglobin ABG Oxyhemoglobin ABG Sodium ABG Potassium ABG Chloride ABG Glucose Oxyhemoglobin Carboxyhemoglobin Sodium Potassium Chloride Carbon Dioxide BUN 18 H Creatinine 0.4 L Glucose 316 H POC Glucose 318 H Lactic Acid Calcium Ferritin Lactate Dehydrogenase Troponin T C-Reactive Protein Total Protein Albumin Triglycerides HDL Cholesterol Arterial Blood Glucose Arterial Blood Ionized Calcium Ur Specific [place] Coronavirus (PCR) 03/13/21 03/13/21 03/13/21 05:58 12:41 13:41 WBC RBC Hgb Hct RDW Plt Count Seg Neuts % (Manual) Lymphocytes % (Manual) Nucleated RBC % Seg Neutrophils # Man Lymphocytes # (Manual) Monocytes # (Manual) PT INR APTT D-Dimer Heparin Anti-Xa Level ABG pH 7.465 H POC ABG pCO2 POC ABG pO2 79.5 L ABG pO2 ABG HCO3 ABG O2 Saturation ABG Base Excess ABG Hemoglobin 10.6 L ABG Oxyhemoglobin ABG Sodium ABG Potassium ABG Chloride ABG Glucose 319 H Oxyhemoglobin Carboxyhemoglobin 0.4 L Sodium Potassium Chloride Carbon Dioxide BUN Creatinine Glucose POC Glucose 304 H 342 H Lactic Acid Calcium Ferritin Lactate Dehydrogenase Troponin T C-Reactive Protein Total Protein Albumin Triglycerides HDL Cholesterol Arterial Blood Glucose 319 H Arterial Blood Ionized Calcium 4.5 L Ur Specific [place] Coronavirus (PCR) 03/13/21 03/13/21 03/14/21 17:23 23:14 04:52 WBC RBC Hgb Hct RDW Plt Count Seg Neuts % (Manual) Lymphocytes % (Manual) Nucleated RBC % Seg Neutrophils # Man Lymphocytes # (Manual) Monocytes # (Manual) PT INR APTT D-Dimer Heparin Anti-Xa Level ABG pH POC ABG pCO2 POC ABG pO2 ABG pO2 ABG HCO3 ABG O2 Saturation ABG Base Excess ABG Hemoglobin ABG Oxyhemoglobin ABG Sodium ABG Potassium ABG Chloride ABG Glucose Oxyhemoglobin Carboxyhemoglobin Sodium Potassium Chloride Carbon Dioxide BUN Creatinine Glucose POC Glucose 336 H 257 H 266 H Lactic Acid Calcium Ferritin Lactate Dehydrogenase Troponin T C-Reactive Protein Total Protein Albumin Triglycerides HDL Cholesterol Arterial Blood Glucose Arterial Blood Ionized Calcium Ur Specific [place] Coronavirus (PCR) 03/14/21 03/14/21 03/14/21 08:35 08:35 08:35 WBC 21.9 H RBC Hgb Hct RDW 15.4 H Plt Count Seg Neuts % (Manual) Lymphocytes % (Manual) Nucleated RBC % Seg Neutrophils # Man Lymphocytes # (Manual) Monocytes # (Manual) PT INR APTT D-Dimer 4053.87 H Heparin Anti-Xa Level < 0.10 L ABG pH POC ABG pCO2 POC ABG pO2 ABG pO2 ABG HCO3 ABG O2 Saturation ABG Base Excess ABG Hemoglobin ABG Oxyhemoglobin ABG Sodium ABG Potassium ABG Chloride ABG Glucose Oxyhemoglobin Carboxyhemoglobin Sodium 131 L D Potassium Chloride 96.3 L Carbon Dioxide BUN 19 H Creatinine 0.3 L Glucose 265 H POC Glucose Lactic Acid Calcium Ferritin Lactate Dehydrogenase 768 H Troponin T C-Reactive Protein Total Protein Albumin Triglycerides HDL Cholesterol Arterial Blood Glucose Arterial Blood Ionized Calcium Ur Specific [place] Coronavirus (PCR) 03/14/21 03/14/21 03/14/21 08:35 11:49 16:50 WBC RBC Hgb Hct RDW Plt Count Seg Neuts % (Manual) Lymphocytes % (Manual) Nucleated RBC % Seg Neutrophils # Man Lymphocytes # (Manual) Monocytes # (Manual) PT INR APTT D-Dimer Heparin Anti-Xa Level ABG pH 7.518 H POC ABG pCO2 POC ABG pO2 ABG pO2 ABG HCO3 ABG O2 Saturation ABG Base Excess ABG Hemoglobin 11.0 L ABG Oxyhemoglobin ABG Sodium 130.5 L ABG Potassium ABG Chloride 95.0 L ABG Glucose 325 H Oxyhemoglobin Carboxyhemoglobin Sodium Potassium Chloride Carbon Dioxide BUN Creatinine Glucose POC Glucose 256 H Lactic Acid Calcium Ferritin 209.5 H Lactate Dehydrogenase Troponin T C-Reactive Protein Total Protein Albumin Triglycerides HDL Cholesterol Arterial Blood Glucose 325 H Arterial Blood Ionized Calcium 4.5 L Ur Specific [place] Coronavirus (PCR) 03/14/21 03/14/2103/14/21 18:18 19:39 22:05 WBC RBC Hgb Hct RDW Plt Count Seg Neuts % (Manual) Lymphocytes % (Manual) Nucleated RBC % Seg Neutrophils # Man Lymphocytes # (Manual) Monocytes # (Manual) PT INR APTT D-Dimer Heparin Anti-Xa Level 0.19 L ABG pH POC ABG pCO2 POC ABG pO2 ABG pO2 ABG HCO3 ABG O2 Saturation ABG Base Excess ABG Hemoglobin ABG Oxyhemoglobin ABG Sodium ABG Potassium ABG Chloride ABG Glucose Oxyhemoglobin Carboxyhemoglobin Sodium Potassium Chloride Carbon Dioxide BUN Creatinine Glucose POC Glucose 299 H 276 H Lactic Acid Calcium Ferritin Lactate Dehydrogenase Troponin T C-Reactive Protein Total Protein Albumin Triglycerides HDL Cholesterol Arterial Blood Glucose Arterial Blood Ionized Calcium Ur Specific [place] Coronavirus (PCR) 03/14/21 03/15/21 03/15/21 23:47 03:10 05:13 WBC RBC Hgb Hct RDW Plt Count Seg Neuts % (Manual) Lymphocytes % (Manual) Nucleated RBC % Seg Neutrophils # Man Lymphocytes # (Manual) Monocytes # (Manual) PT INR APTT D-Dimer Heparin Anti-Xa Level ABG pH 7.515 H POC ABG pCO2 POC ABG pO2 ABG pO2 ABG HCO3 ABG O2 Saturation ABG Base Excess ABG Hemoglobin 11.0 L ABG Oxyhemoglobin ABG Sodium 131.4 L ABG Potassium ABG Chloride 95.0 L ABG Glucose 239 H Oxyhemoglobin Carboxyhemoglobin Sodium Potassium Chloride Carbon Dioxide BUN Creatinine Glucose POC Glucose 344 H 245 H Lactic Acid Calcium Ferritin Lactate Dehydrogenase Troponin T C-Reactive Protein Total Protein Albumin Triglycerides HDL Cholesterol Arterial Blood Glucose 239 H Arterial Blood Ionized Calcium 4.5 L Ur Specific [place] Coronavirus (PCR) 03/15/21 03/15/21 03/15/21 06:00 11:40 17:07 WBC RBC Hgb Hct RDW Plt Count Seg Neuts % (Manual) Lymphocytes % (Manual) Nucleated RBC % Seg Neutrophils # Man Lymphocytes # (Manual) Monocytes # (Manual) PT INR APTT D-Dimer Heparin Anti-Xa Level ABG pH POC ABG pCO2 POC ABG pO2 ABG pO2 ABG HCO3 ABG O2 Saturation ABG Base Excess ABG Hemoglobin ABG Oxyhemoglobin ABG Sodium ABG Potassium ABG Chloride ABG Glucose Oxyhemoglobin Carboxyhemoglobin Sodium 136 L Potassium Chloride 94.6 L Carbon Dioxide 31 H BUN Creatinine 0.3 L Glucose 227 H POC Glucose 224 H 324 H Lactic Acid Calcium Ferritin Lactate Dehydrogenase Troponin T C-Reactive Protein Total Protein Albumin Triglycerides HDL Cholesterol Arterial Blood Glucose Arterial Blood Ionized Calcium Ur Specific [place] Coronavirus (PCR) 03/15/21 03/16/21 03/16/21 23:42 05:49 07:43 WBC 26.2 H RBC Hgb Hct RDW Plt Count Seg Neuts % (Manual) Lymphocytes % (Manual) Nucleated RBC % Seg Neutrophils # Man Lymphocytes # (Manual) Monocytes # (Manual) PT INR APTT D-Dimer Heparin Anti-Xa Level ABG pH POC ABG pCO2 POC ABG pO2 ABG pO2 ABG HCO3 ABG O2 Saturation ABG Base Excess ABG Hemoglobin ABG Oxyhemoglobin ABG Sodium ABG Potassium ABG Chloride ABG Glucose Oxyhemoglobin Carboxyhemoglobin Sodium Potassium Chloride Carbon Dioxide BUN Creatinine Glucose POC Glucose 278 H 216 H Lactic Acid Calcium Ferritin Lactate Dehydrogenase Troponin T C-Reactive Protein Total Protein Albumin Triglycerides HDL Cholesterol Arterial Blood Glucose Arterial Blood Ionized Calcium Ur Specific [place] Coronavirus (PCR) 03/16/21 03/16/21 03/16/21 07:43 07:43 07:43 WBC RBC Hgb Hct RDW Plt Count Seg Neuts % (Manual) Lymphocytes % (Manual) Nucleated RBC % Seg Neutrophils # Man Lymphocytes # (Manual) Monocytes # (Manual) PT INR APTT D-Dimer 4124.04 H Heparin Anti-Xa Level 1.69 H ABG pH POC ABG pCO2 POC ABG pO2 ABG pO2 ABG HCO3 ABG O2 Saturation ABG Base Excess ABG Hemoglobin ABG Oxyhemoglobin ABG Sodium ABG Potassium ABG Chloride ABG Glucose Oxyhemoglobin Carboxyhemoglobin Sodium Potassium Chloride Carbon Dioxide 32 H BUN Creatinine 0.4 L Glucose 230 H POC Glucose Lactic Acid Calcium Ferritin Lactate Dehydrogenase 662 H Troponin T C-Reactive Protein Total Protein Albumin Triglycerides HDL Cholesterol Arterial Blood Glucose Arterial Blood Ionized Calcium Ur Specific [place] Coronavirus (PCR) 03/16/21 03/16/21 03/16/21 07:43 11:00 17:06 WBC RBC Hgb Hct RDW Plt Count Seg Neuts % (Manual) Lymphocytes % (Manual) Nucleated RBC % Seg Neutrophils # Man Lymphocytes # (Manual) Monocytes # (Manual) PT INR APTT D-Dimer Heparin Anti-Xa Level 0.78 H ABG pH POC ABG pCO2 POC ABG pO2 ABG pO2 ABG HCO3 ABG O2 Saturation ABG Base Excess ABG Hemoglobin ABG Oxyhemoglobin ABG Sodium ABG Potassium ABG Chloride ABG Glucose Oxyhemoglobin Carboxyhemoglobin Sodium Potassium Chloride Carbon Dioxide BUN Creatinine Glucose POC Glucose 239 H Lactic Acid Calcium Ferritin Lactate Dehydrogenase Troponin T C-Reactive Protein Total Protein Albumin Triglycerides 173 H HDL Cholesterol Arterial Blood Glucose Arterial Blood Ionized Calcium Ur Specific [place] Coronavirus (PCR) 03/16/21 03/16/21 03/17/21 17:07 23:16 00:37 WBC RBC Hgb Hct RDW Plt Count Seg Neuts % (Manual) Lymphocytes % (Manual) Nucleated RBC % Seg Neutrophils # Man Lymphocytes # (Manual) Monocytes # (Manual) PT INR APTT D-Dimer Heparin Anti-Xa Level 1.14 H ABG pH POC ABG pCO2 POC ABG pO2 ABG pO2 ABG HCO3 ABG O2 Saturation ABG Base Excess ABG Hemoglobin ABG Oxyhemoglobin ABG Sodium ABG Potassium ABG Chloride ABG Glucose Oxyhemoglobin Carboxyhemoglobin Sodium Potassium Chloride Carbon Dioxide BUN Creatinine Glucose POC Glucose 315 H 248 H Lactic Acid Calcium Ferritin Lactate Dehydrogenase Troponin T C-Reactive Protein Total Protein Albumin Triglycerides HDL Cholesterol Arterial Blood Glucose Arterial Blood Ionized Calcium Ur Specific [place] Coronavirus (PCR) 03/17/21 03/17/21 03/17/21 05:24 11:29 15:35 WBC RBC Hgb Hct RDW Plt Count Seg Neuts % (Manual) Lymphocytes % (Manual) Nucleated RBC % Seg Neutrophils # Man Lymphocytes # (Manual) Monocytes # (Manual) PT INR APTT D-Dimer Heparin Anti-Xa Level < 0.10 L ABG pH POC ABG pCO2 POC ABG pO2 ABG pO2 ABG HCO3 ABG O2 Saturation ABG Base Excess ABG Hemoglobin ABG Oxyhemoglobin ABG Sodium ABG Potassium ABG Chloride ABG Glucose Oxyhemoglobin Carboxyhemoglobin Sodium Potassium Chloride Carbon Dioxide BUN Creatinine Glucose POC Glucose 170 H 211 H Lactic Acid Calcium Ferritin Lactate Dehydrogenase Troponin T C-Reactive Protein Total Protein Albumin Triglycerides HDL Cholesterol Arterial Blood Glucose Arterial Blood Ionized Calcium Ur Specific [place] Coronavirus (PCR) 03/17/21 03/17/21 03/18/21 17:36 21:58 00:01 WBC RBC Hgb Hct RDW Plt Count Seg Neuts % (Manual) Lymphocytes % (Manual) Nucleated RBC % Seg Neutrophils # Man Lymphocytes # (Manual) Monocytes # (Manual) PT INR APTT D-Dimer Heparin Anti-Xa Level ABG pH POC ABG pCO2 POC ABG pO2 ABG pO2 ABG HCO3 ABG O2 Saturation ABG Base Excess ABG Hemoglobin ABG Oxyhemoglobin ABG Sodium ABG Potassium ABG Chloride ABG Glucose Oxyhemoglobin Carboxyhemoglobin Sodium Potassium Chloride Carbon Dioxide BUN Creatinine Glucose POC Glucose 281 H 187 H 160 H Lactic Acid Calcium Ferritin Lactate Dehydrogenase Troponin T C-Reactive Protein Total Protein Albumin Triglycerides HDL Cholesterol Arterial Blood Glucose Arterial Blood Ionized Calcium Ur Specific [place] Coronavirus (PCR) 03/18/21 03/18/21 03/18/21 03:30 03:30 03:30 WBC 20.0 H RBC 3.63 L Hgb Hct RDW 15.7 H Plt Count Seg Neuts % (Manual) Lymphocytes % (Manual) Nucleated RBC % Seg Neutrophils # Man Lymphocytes # (Manual) Monocytes # (Manual) PT INR APTT D-Dimer 3430.09 H Heparin Anti-Xa Level ABG pH POC ABG pCO2 POC ABG pO2 ABG pO2 ABG HCO3 ABG O2 Saturation ABG Base Excess ABG Hemoglobin ABG Oxyhemoglobin ABG Sodium ABG Potassium ABG Chloride ABG Glucose Oxyhemoglobin Carboxyhemoglobin Sodium Potassium Chloride Carbon Dioxide BUN Creatinine 0.3 L Glucose 145 H POC Glucose Lactic Acid Calcium Ferritin Lactate Dehydrogenase 501 H Troponin T C-Reactive Protein Total Protein Albumin Triglycerides HDL Cholesterol Arterial Blood Glucose Arterial Blood Ionized Calcium Ur Specific [place] Coronavirus (PCR) 03/18/21 03/18/21 03/18/21 10:40 12:12 17:52 WBC RBC Hgb Hct RDW Plt Count Seg Neuts % (Manual) Lymphocytes % (Manual) Nucleated RBC % Seg Neutrophils # Man Lymphocytes # (Manual) Monocytes # (Manual) PT INR APTT D-Dimer Heparin Anti-Xa Level ABG pH POC ABG pCO2 POC ABG pO2 ABG pO2 65.2 L ABG HCO3 27.5 H ABG O2 Saturation 93.6 L ABG Base Excess 3.2 H ABG Hemoglobin 11.4 L ABG Oxyhemoglobin ABG Sodium ABG Potassium ABG Chloride ABG Glucose Oxyhemoglobin 91.5 L Carboxyhemoglobin Sodium Potassium Chloride Carbon Dioxide BUN Creatinine Glucose POC Glucose 171 H 145 H Lactic Acid Calcium Ferritin Lactate Dehydrogenase Troponin T C-Reactive Protein Total Protein Albumin Triglycerides HDL Cholesterol Arterial Blood Glucose Arterial Blood Ionized Calcium Ur Specific [place] Coronavirus (PCR) 03/18/21 03/19/21 03/19/21 23:17 04:45 17:00 WBC RBC Hgb Hct RDW Plt Count Seg Neuts % (Manual) Lymphocytes % (Manual) Nucleated RBC % Seg Neutrophils # Man Lymphocytes # (Manual) Monocytes # (Manual) PT INR APTT D-Dimer Heparin Anti-Xa Level ABG pH POC ABG pCO2 POC ABG pO2 ABG pO2 ABG HCO3 ABG O2 Saturation ABG Base Excess ABG Hemoglobin 11.4 L ABG Oxyhemoglobin ABG Sodium ABG Potassium ABG Chloride ABG Glucose Oxyhemoglobin Carboxyhemoglobin Sodium Potassium Chloride Carbon Dioxide BUN Creatinine Glucose POC Glucose 160 H 110 H Lactic Acid Calcium Ferritin Lactate Dehydrogenase Troponin T C-Reactive Protein Total Protein Albumin Triglycerides HDL Cholesterol Arterial Blood Glucose Arterial Blood Ionized Calcium Ur Specific [place] Coronavirus (PCR) 03/19/21 03/19/21 03/20/21 23:46 Unknown 06:28 WBC RBC Hgb Hct RDW Plt Count Seg Neuts % (Manual) Lymphocytes % (Manual) Nucleated RBC % Seg Neutrophils # Man Lymphocytes # (Manual) Monocytes # (Manual) PT INR APTT D-Dimer Heparin Anti-Xa Level ABG pH POC ABG pCO2 POC ABG pO2 ABG pO2 ABG HCO3 ABG O2 Saturation ABG Base Excess ABG Hemoglobin ABG Oxyhemoglobin ABG Sodium ABG Potassium ABG Chloride ABG Glucose Oxyhemoglobin Carboxyhemoglobin Sodium Potassium 3.2 L Chloride Carbon Dioxide BUN Creatinine 0.3 L Glucose POC Glucose 108 H 121 H Lactic Acid Calcium 7.4 L D Ferritin Lactate Dehydrogenase Troponin T C-Reactive Protein Total Protein Albumin Triglycerides HDL Cholesterol Arterial Blood Glucose Arterial Blood Ionized Calcium Ur Specific [place] Coronavirus (PCR) 03/20/21 03/20/21 03/20/21 09:44 11:15 12:05 WBC RBC Hgb Hct RDW Plt Count Seg Neuts % (Manual) Lymphocytes % (Manual) Nucleated RBC % Seg Neutrophils # Man Lymphocytes # (Manual) Monocytes # (Manual) PT 15.4 H INR 1.17 H APTT D-Dimer Heparin Anti-Xa Level ABG pH POC ABG pCO2 POC ABG pO2 ABG pO2 ABG HCO3 ABG O2 Saturation ABG Base Excess ABG Hemoglobin ABG Oxyhemoglobin ABG Sodium ABG Potassium ABG Chloride ABG Glucose Oxyhemoglobin Carboxyhemoglobin Sodium Potassium Chloride Carbon Dioxide BUN Creatinine 0.4 L Glucose POC Glucose 142 H Lactic Acid Calcium Ferritin Lactate Dehydrogenase Troponin T C-Reactive Protein Total Protein Albumin Triglycerides HDL Cholesterol Arterial Blood Glucose Arterial Blood Ionized Calcium Ur Specific [place] Coronavirus (PCR) 03/20/21 03/20/21 03/20/21 14:04 17:13 21:48 WBC 15.7 H RBC Hgb Hct RDW 16.0 H Plt Count Seg Neuts % (Manual) Lymphocytes % (Manual) Nucleated RBC % Seg Neutrophils # Man Lymphocytes # (Manual) Monocytes # (Manual) PT INR APTT D-Dimer Heparin Anti-Xa Level ABG pH POC ABG pCO2 POC ABG pO2 ABG pO2 ABG HCO3 ABG O2 Saturation ABG Base Excess ABG Hemoglobin ABG Oxyhemoglobin ABG Sodium ABG Potassium ABG Chloride ABG Glucose Oxyhemoglobin Carboxyhemoglobin Sodium Potassium Chloride Carbon Dioxide BUN Creatinine Glucose POC Glucose 115 H 114 H Lactic Acid Calcium Ferritin Lactate Dehydrogenase Troponin T C-Reactive Protein Total Protein Albumin Triglycerides HDL Cholesterol Arterial Blood Glucose Arterial Blood Ionized Calcium Ur Specific [place] Coronavirus (PCR) 03/20/21 03/20/21 03/20/21 Unknown Unknown Unknown WBC 16.5 H RBC Hgb Hct RDW 15.4 H Plt Count Seg Neuts % (Manual) Lymphocytes % (Manual) Nucleated RBC % Seg Neutrophils # Man Lymphocytes # (Manual) Monocytes # (Manual) PT INR APTT D-Dimer 4136.20 H Heparin Anti-Xa Level ABG pH POC ABG pCO2 POC ABG pO2 ABG pO2 ABG HCO3 ABG O2 Saturation ABG Base Excess ABG Hemoglobin ABG Oxyhemoglobin ABG Sodium ABG Potassium ABG Chloride ABG Glucose Oxyhemoglobin Carboxyhemoglobin Sodium Potassium Chloride Carbon Dioxide BUN Creatinine Glucose POC Glucose Lactic Acid Calcium Ferritin Lactate Dehydrogenase 512 H Troponin T C-Reactive Protein Total Protein Albumin Triglycerides HDL Cholesterol Arterial Blood Glucose Arterial Blood Ionized Calcium Ur Specific [place] Coronavirus (PCR) 03/21/21 03/21/21 03/21/21 07:42 10:00 10:00 WBC RBC Hgb Hct RDW 15.7 H Plt Count Seg Neuts % (Manual) Lymphocytes % (Manual) Nucleated RBC % Seg Neutrophils # Man Lymphocytes # (Manual) Monocytes # (Manual) PT INR APTT D-Dimer Heparin Anti-Xa Level ABG pH POC ABG pCO2 POC ABG pO2 ABG pO2 ABG HCO3 ABG O2 Saturation ABG Base Excess ABG Hemoglobin ABG Oxyhemoglobin ABG Sodium ABG Potassium ABG Chloride ABG Glucose Oxyhemoglobin Carboxyhemoglobin Sodium Potassium 3.4 L Chloride 107.8 H Carbon Dioxide BUN Creatinine 0.3 L Glucose POC Glucose 109 H Lactic Acid Calcium 7.6 L Ferritin Lactate Dehydrogenase Troponin T C-Reactive Protein Total Protein 5.2 L Albumin 3.3 L Triglycerides HDL Cholesterol Arterial Blood Glucose Arterial Blood Ionized Calcium Ur Specific [place] Coronavirus (PCR) Chest x-ray: report reviewed, image reviewed CT scan - chest: report reviewed, image reviewed Additional Studies: CHEST 1 VIEW 03/19/2021 1:01 AM INDICATION / CLINICAL INFORMATION: COVID, Resp failure. COMPARISON: 03/17/2021 FINDINGS: SUPPORT DEVICES: ET tube extends to the level orion and slightly into the right mainstem bronchus and should be pulled back 1 to centimeters. HEART / MEDIASTINUM: No significant abnormality. LUNGS / PLEURA: Diffuse bilateral pulmonary opacities No pneumothorax. ADDITIONAL FINDINGS: No significant additional findings. IMPRESSION: 1. ET tube extends into the right mainstem bronchus and should be pulled back at least 1 2 cm. 2. Diffuse bilateral pulmonary opacities. CTA CHEST WITH IV CONTRAST 03/07/21 INDICATION / CLINICAL INFORMATION: Elevated D-dimer, Respiratory failure. TECHNIQUE: Axial CT images were obtained through the chest after injection of 100 mL IV contrast. 3 plane MIP and/or 3D reconstructions were produced. All CT scans at this location are performed using CT dose reduction for ALARA by means of automated exposure control. COMPARISON: Chest radiograph earlier today FINDINGS: PULMONARY ARTERIES: Scattered small pulmonary emboli are seen throughout the pulmonary arteries of both lower lobes. No large central embolus. THORACIC AORTA: No significant abnormality. HEART: No significant abnormality. CORONARY ARTERIES: No significant calcification. PLEURA: No pleural effusion. No pneumothorax. LYMPH NODES: No significant adenopathy. LUNGS: There are diffuse pulmonary opacities throughout both lungs with developing consolidation diffusely and bilaterally. No evidence of true mass. ADDITIONAL FINDINGS: Please note that the tip of the ET tube is at the level the orion. Please consider retracting the ET tube 2-3 cm. Tip of NG tube is well positioned within the stomach. UPPER ABDOMEN: No acute findings. SKELETAL STRUCTURES: No significant osseous abnormality. IMPRESSION: 1. Multiple small peripheral bilateral lower lobe pulmonary emboli are present. 2. Diffuse severe bilateral pulmonary opacities most likely related to severe bilateral pneumonia. Allied health notes reviewed: nursing
[2021-03-21 11:44] LABS: Band Neutrophils # (Manual) 0.2 K/mm3; Myelocytes # (Manual) 0.1 K/mm3; Total Cells Counted 100
[2021-03-21 11:45] LABS: Anisocytosis Few; Macrocytosis Few; Platelet Estimate Consistent w Auto
--- NOTE | 2021-03-21 13:03 | Progress Note ---
Assessment and Plan Cultures: Blood culture 03/07/2021 no growth Urine culture 03/08/2021 no growth Sputum culture 03/08/2021 Lakshmi Blood culture 03/10/2021 no growth Covid PCR: Positive A/P: 45-year-old female no past medical history admitted with COVID-19 pneumonia and bilateral pulmonary emboli. #Critical COVID-19 pneumonia: Patient presented with 3 days of symptoms, chest x-ray with diffuse bilateral infiltrates, admission O2 sats 50% on room air. Inflammatory markers were elevated, now improving. S/P steroids, remdesivir and Actemra. #Acute hypoxemic respiratory failure: Likely secondary to COVID-19 infection. Remains intubated, FiO2 35% #Bilateral pulmonary emboli: Anticoagulation per primary #Obesity: Associated with worse COVID-19 outcomes. Recs: - WBC normalized. S/P steroids, remdesivir and Actemra - anticoagulation per pulmonary/primary team - supportive care and oxygen weaning ID will sign off. Please call with questions. Micki Arellano MD, FACP [facility] ([facility] O: [phone] F: [phone] Subjective Date of service: 03/21/21 Principal diagnosis: Ac. hypoxemic resp. failure; Septic Shock; COVID-19 Pneumonia; VTE; NSTEMI Interval history: No fever. Moved to floor, weaned to NC. Objective - Exam Narrative Exam: Physical Exam (reviewed in chart to minimize risk of transmission) Constitutional: deferred Head, Ears, Nose: deferred Eyes: deferred Neck: deferred Oral: deferred Cardiovascular: deferred Respiratory: deferred GI: deferred Musculoskeletal: deferred Skin: deferred Hem/Lymphatic: deferred Psych: deferred Neurological: deferred - Constitutional Vitals: Vital Signs Temp Pulse Resp BP Pulse Ox 98.8 F 90 20 98/34 96 03/21/21 11:28 03/21/21 11:28 03/21/21 11:28 03/21/21 11:28 03/21/21 11:28 Temperature -Last 24 Hours Temperature 98.8 F Temperature 98.7 F Temperature 99.4 F Temperature 99.4 F Temperature 99.4 F - Labs CBC & Chem 7: 03/21/21 10:00 03/21/21 10:00 Labs: Abnormal lab results 03/20/21 03/20/21 03/20/21 Range/Units 12:05 14:04 17:13 WBC 15.7 H (4.5-11.0) K/mm3 RDW 16.0 H (13.2-15.2) % Seg Neuts % (Manual) (40.0-70.0) % Lymphocytes % (Manual) (13.4-35.0) % Seg Neutrophils # Man (1.8-7.7) K/mm3 Lymphocytes # (Manual) (1.2-5.4) K/mm3 Potassium (3.6-5.0) mmol/L Chloride (98-107) mmol/L Creatinine (0.6-1.2) mg/dL POC Glucose 142 H 115 H (70-105) mg/dL Calcium (8.4-10.2) mg/dL Total Protein (6.3-8.2) g/dL Albumin (3.9-5) g/dL 03/20/21 03/21/21 03/21/21 Range/Units 21:48 07:42 10:00 WBC (4.5-11.0) K/mm3 RDW 15.7 H (13.2-15.2) % Seg Neuts % (Manual) 85.0 H (40.0-70.0) % Lymphocytes % (Manual) 5.0 L (13.4-35.0) % Seg Neutrophils # Man 9.3 H (1.8-7.7) K/mm3 Lymphocytes # (Manual) 0.5 L (1.2-5.4) K/mm3 Potassium (3.6-5.0) mmol/L Chloride (98-107) mmol/L Creatinine (0.6-1.2) mg/dL POC Glucose 114 H 109 H (70-105) mg/dL Calcium (8.4-10.2) mg/dL Total Protein (6.3-8.2) g/dL Albumin (3.9-5) g/dL 03/21/21 Range/Units 10:00 WBC (4.5-11.0) K/mm3 RDW (13.2-15.2) % Seg Neuts % (Manual) (40.0-70.0) % Lymphocytes % (Manual) (13.4-35.0) % Seg Neutrophils # Man (1.8-7.7) K/mm3 Lymphocytes # (Manual) (1.2-5.4) K/mm3 Potassium 3.4 L (3.6-5.0) mmol/L Chloride 107.8 H (98-107) mmol/L Creatinine 0.3 L (0.6-1.2) mg/dL POC Glucose (70-105) mg/dL Calcium 7.6 L (8.4-10.2) mg/dL Total Protein 5.2 L (6.3-8.2) g/dL Albumin 3.3 L (3.9-5) g/dL
--- NOTE | 2021-03-21 13:45 | Progress Note ---
Assessment and Plan 45-year-old female with no significant past medical history admitted to the hospital service with COVID-19 pneumonia, multiple peripheral bilateral lower lobe pulmonary emboli, septic shock, leukocytosis, hyponatremia, hypochloremia, metabolic acidosis, lactic acidosis. COVID-19 pneumonia - improving -Status post steroid, remdesivir and Actemra Septic shock secondary to COVID-19 pneumonia - improving Acute hypoxic respiratory failure -status post intubation, improving Pulmonary embolism on AC Left posterior tibial and peroneal veins DVT, on AC Leukocytosis - downtrending Lactic acidosis -imprroved Thrombocytopenia (improved-03/08 HIT NEGATIVE) Oropharyngeal dysphagia Urinary retention Hyperglycemia, stress induced Acute metabolic encephalopathy due to sepsis, improved Morbid Obesity Brief history: This is a 45-year-old female with significant past medical history presented to emergency department on 03/07 complaining of cough, shortness of breath and diarrhea for 3 days prior to arrival. Upon arrival to emergency department patient was found to be in respiratory distress and initial oxygen saturations were said to be in the 50s and patient was placed on a nonrebreather and was subsequently intubated in the emergency department and upon review patient did not receive COVID-19 vaccination. Work-up in the emergency department revealed bilateral pulmonary infiltrates on CXR, leukocytosis of 31,000, hyperglycemia with a blood glucose of 301, elevated D-dimer greater than 10,000., CTA chest showed multiple peripheral bilateral lower lobe pulmonary emboli. Patient was hypotensive in the emergency department and fluid resuscitated and started on vasopressors. Patient will be admitted to the hospital service with COVID-19 PUI, septic shock secondary to pneumonia, pulmonary emboli and acute hypoxic respiratory failure. [facility] and infectious disease were consulted. Patient was s tarted on heparin drip. Daily clinical course: 03/08: New issues: Thrombocytosis question if this is secondary to HIT. We will send out HIT panel. Monitor platelets. Continue heparin drip at this time. Await pulmonary and ID input. 03/09: Patient noted to have Covid positive pneumonia ID input is appreciated patient on dexamethasone for complete 10 days of therapy now started on remdesivir due to hypoxia also to complete 5 days therapy and Actemra a one- time. We will continue to monitor -Obtain q48-72h inflammatory markers - ferritin, Ddimer, CRP, LDH -Continue ceftriaxone 2 gm IV qday and azithromycin 500 mg PO qday for 5 days given elevated procal -Anticoagulation per hospital protocol -Proning as able I also requested a stat CBC to further evaluate thrombocytosis that was noted yesterday. I called Serafin ring to update and got voicemail left a message. I also called James Hernandez but his phone is unable to accept messages at this time. 03/10: Possible ileus versus bowel obstruction. Will obtain KUB. Continue to hold tube feeds at this time. We will also obtain GI consult if no resolution. Also patient noted to have urinary retention we will proceed with placing a Maya catheter. She does follow commands some when off sedation but gets easily agitated. Continue ICU management at this point. 03/11: Blood sugar still elevated adjusted nighttime insulin for better coverage. KUB concerning for radiopaque object possible tablet. Was not present on 03 08. We will repeat a KUB in a.m. to see if resolution versus ileus. Continue current management for COVID-19. Continue heparin drip for noted pulmonary em bolism. Platelets actually improved despite being on heparin doubt HIT. Patient still requires critical care monitoring. Altered mental status still present. 03/12: Worsening leukocytosis this could be secondary to steroids. We will give Lasix today in addition to empiric vitamins. Chest x-ray shows worsening opacities will monitor closely. Continue full mechanical ventilation and restraints for safety. 03/13: At the time my examination patient was on fentanyl at 3 mcg, heparin drip, pressure control ventilation with a rate of 20, pressure support of 20, FiO2 of 35% and PEEP of 12 and ECMO blood change patient ventilation to assist control tidal volume 450, rate of 14, PEEP of 10 in the morning. RN reported the patient did not have a BM since admission and [facility] ordered mag citrate x1. 03/14: SBT trial per CCM, leukocytosis and D-dimer is improving. Patient is hyperglycemic and long-acting insulin dosage has been increased. Patient has pseudohyponatremia today. Nurse reported that patient central line was not drawing back blood and Cathflo was ordered. No acute events reported overnight. 03/15: Patient is severely agitated and SBT trial was not attempted today. Patient remains hyperglycemic and insulin has been adjusted accordingly. [facility] will start the patient on Seroquel and attempt to wean propofol. Patient was hypotensive after sedation was increased and she received a 500 mL LR bolus today. We will obtain the ECG in the a.m. to assess QTc. RN to attempt to obtai n PIV 03/16: Patient still has moments of severe agitation and her Seroquel will be increased today. Patient's urinary catheter was replaced due to retention patient has been started on Flomax. At the time my examination patient patient was sedated on propofol and fentanyl on AC. Patient still has leukocytosis and hyperglycemia. Insulin increased. We will obtain triglyceride level in the morning. CCM opted to removal otis and replace CVL with PICC. 03/17: This morning the time of examination patient sedated on propofol and fentanyl assist control ventilation tidal volume 450, rate of 14, PEEP of 8 and 35% FiO2. EKG this a.m. showed a QTC of 407. Patient was able to follow commands at time of examination. Patient will be started on precedex and heparin gtt changed to lovenox. Lantus increased 03/18: This morning patient was sedated with propofol, fentanyl, precedex gtt. RT to attempt SBT and will obtain an ABG after. Lantus decreased as steroids ended today. CCM to give one time dose of lasix. 03/19/2021: Patient seen and examined this morning, patient self extubated, on nasal cannula oxygen, patient waxing and waning with some delirium but speaking [place] and updated patient on her status. 03/20/21: Patient self extubated herself yesterday. Continue to maintain oxygen saturation, follow ABG., Pulmonary critical care following. Continue supportive care. Transferred to telemetry. 03/21/21: Patient today on 3 L nasal cannula, saturating well. PT recommended subacute rehab but patient is unfunded. Plan continue to monitor clinically. Discussed with CM for O2 arrangement and placement. Advance diet as tolerated. Subjective Date of service: 03/21/21 Principal diagnosis: Ac. hypoxemic resp. failure; Septic Shock; COVID-19 Pneumonia; VTE; NSTEMI Interval history: Patient seen and examined. Medical records and medication list reviewed. No acute event overnight noted by the RN. Patient denies any chest pain, c/o difficulty breathing on exertion. Patient remains on nasal cannula O2, she is tolerating diet. Discussed plan of care at bedside with patient. Objective - Exam Narrative Exam: Limited physical exam due to COVID-19 pandemic to minimize transmission of the disease and to preserve PPE. Vital reviewed and stable. GENERAL: well-developed well-nourished female lying on bed appeared to be in no discomfort. HEENT: Normocephalic. Atraumatic. NECK: Supple. CHEST/LUNGS: breathing nonlabored. HEART/CARDIOVASCULAR: Heart rate stable on telemetry ABDOMEN: Visibly not distended SKIN: There is no rash NEURO: No focal motor deficit. Follows command. MUSCULOSKELETAL: No joint effusion EXTRIMITY: No swelling, no cyanosis or clubbing. PSYCH: Cooperative. - Constitutional Vitals: Vital Signs - 12hr 03/21/21 03/21/21 04:15 11:28 Temperature 98.7 F 98.8 F Pulse Rate 84 90 Respiratory 18 20 Rate Blood Pressure 103/57 98/34 O2 Sat by Pulse 86 96 Oximetry - Labs CBC & Chem 7: 03/21/21 10:00 03/21/21 10:00 Labs: Abnormal lab results 03/20/21 03/20/21 03/20/21 Range/Units 12:05 14:04 17:13 WBC 15.7 H (4.5-11.0) K/mm3 RDW 16.0 H (13.2-15.2) % Seg Neuts % (Manual) (40.0-70.0) % Lymphocytes % (Manual) (13.4-35.0) % Seg Neutrophils # Man (1.8-7.7) K/mm3 Lymphocytes # (Manual) (1.2-5.4) K/mm3 Potassium (3.6-5.0) mmol/L Chloride (98-107) mmol/L Creatinine (0.6-1.2) mg/dL POC Glucose 142 H 115 H (70-105) mg/dL Calcium (8.4-10.2) mg/dL Total Protein (6.3-8.2) g/dL Albumin (3.9-5) g/dL 03/20/21 03/21/21 03/21/21 Range/Units 21:48 07:42 10:00 WBC (4.5-11.0) K/mm3 RDW 15.7 H (13.2-15.2) % Seg Neuts % (Manual) 85.0 H (40.0-70.0) % Lymphocytes % (Manual) 5.0 L (13.4-35.0) % Seg Neutrophils # Man 9.3 H (1.8-7.7) K/mm3 Lymphocytes # (Manual) 0.5 L (1.2-5.4) K/mm3 Potassium (3.6-5.0) mmol/L Chloride (98-107) mmol/L Creatinine (0.6-1.2) mg/dL POC Glucose 114 H 109 H (70-105) mg/dL Calcium (8.4-10.2) mg/dL Total Protein (6.3-8.2) g/dL Albumin (3.9-5) g/dL 03/21/21 Range/Units 10:00 WBC (4.5-11.0) K/mm3 RDW (13.2-15.2) % Seg Neuts % (Manual) (40.0-70.0) % Lymphocytes % (Manual) (13.4-35.0) % Seg Neutrophils # Man (1.8-7.7) K/mm3 Lymphocytes # (Manual) (1.2-5.4) K/mm3 Potassium 3.4 L (3.6-5.0) mmol/L Chloride 107.8 H (98-107) mmol/L Creatinine 0.3 L (0.6-1.2) mg/dL POC Glucose (70-105) mg/dL Calcium 7.6 L (8.4-10.2) mg/dL Total Protein 5.2 L (6.3-8.2) g/dL Albumin 3.3 L (3.9-5) g/dL HEART Score - HEART Score EKG: Normal Age: 45-65 Risk factors: No known risk factors Troponin: Troponin T 0.085 ng/mL (0.00-0.029) H 03/07/21 20:31 Troponin: < normal limit - Critical Actions Critical Actions: 0-3 pts:0.9-1.7%risk of adverse cardiac event.Candidate for discharge
[2021-03-22] MEDS: INSULIN LISPRO 100 UNIT/ML SUB-Q SCH ×5 (08:09→23:12)
[2021-03-22] MEDS ORDERED: POTASSIUM CHLORIDE ER 20 MEQ TAB PO NR (09:30)
[2021-03-22] MEDS: SENNOSIDES/DOCUSATE SODIUM 8.6/50 MG TAB FEEDTUBE SCH ×2 (11:35→23:13)
[2021-03-22] MEDS: APIXABAN 5 MG TAB PO SCH ×2 (11:35→23:13)
[2021-03-22] MEDS: FAMOTIDINE 20 MG TAB PO SCH ×2 (11:35→23:13)
[2021-03-22] MEDS: ZINC SULFATE 220 MG CAP PO SCH (11:35)
[2021-03-22] MEDS: ASCORBIC ACID 500 MG TAB PO SCH ×2 (11:36→23:13)
[2021-03-22] MEDS: CHOLECALCIFEROL (VIT D3) 5,000 UNIT TAB PO SCH (11:37)
[2021-03-22] MEDS: INSULIN GLARGINE 100 UNITS/ML SUB-Q SCH (11:37)
--- NOTE | 2021-03-22 13:24 | Discharge Summary ---
Providers - Providers Date of Admission: 03/07/21 22:26 Date of discharge: 03/23/21 Attending physician: GUZMAN SALAMANCA 03/07/21 22:57 Consult to Physician [CONS] Routine Comment: Dr. Aceves spoke with Dr. Thayer @ 0049 Consulting Provider: CONNIE THAYER Physician Instructions: Reason For Exam: PNEUMONIA WITH SEPSIS. R/O COVID 19 03/07/21 22:58 Consult to Dietitian/Nutrition [CONS] Routine Physician Instructions: Reason For Exam: Reason for Consult: Diet education Consult to Physician [CONS] Routine Comment: Consulting Provider: DEEDEE CORNEJO Physician Instructions: Reason For Exam: PNEUMONIA WITH SEPSIS, R/O COVID 03/08/21 12:44 Consult to Dietitian/Nutrition [CONS] Routine Physician Instructions: Reason For Exam: Reason for Consult: Write/Manage Tube Feeding 03/17/21 11:21 Consult to PICC Line RN [CONS] Routine Reason For Exam: [facility] access needed Type Line:: PICC 03/19/21 11:03 Occupational Therapy Evaluate and Treat [CONS] Routine Comment: Reason For Exam: impaired ADLS Physical Therapy Evaluation and Treat [CONS] Routine Comment: Reason For Exam: critical illness myopathy Primary care physician: MANAGER SIGN Hospitalization Condition: Stable Pertinent studies: Chest CTA, chest x-rays, lower extremity venous Doppler abdomen x-rays Hospital course: This is 45-year-old female with no significant past medical history admitted to the hospital service with COVID-19 pneumonia, multiple peripheral bilateral lower lobe pulmonary emboli, septic shock, leukocytosis, hyponatremia, hypochloremia, metabolic acidosis, lactic acidosis. She presented to emergency department on 03/07 complaining of cough, shortness of breath and diarrhea for 3 days prior to arrival. Upon arrival to emergency department patient was found to be in respiratory distress and initial oxygen saturations were said to be in the 50s and patient was placed on a nonrebreather and was subsequently intubated in the emergency department and upon review patient did not receive COVID-19 vaccination. Work-up in the emergency department revealed bilateral pulmonary infiltrates on CXR, leukocytosis of 31,000, hyperglycemia with a blood glucose of 301, elevated D-dimer greater than 10,000., CTA chest showed multiple peripheral bilateral lower lobe pulmonary emboli. Patient was hypotensive in the emergency department and fluid resuscitated and started on vasopressors. Patient was admitted to the hospital service with COVID-19 PUI, septic shock secondary to pneumonia, pulmonary emboli and acute hypoxic respiratory failure. CCM and infectious disease were consulted. Patient was started on heparin drip. Daily clinical course: 03/08: New issues: Thrombocytosis question if this is secondary to HIT. We will send out HIT panel. Monitor platelets. Continue heparin drip at this time. Await pulmonary and ID input. 03/09: Patient noted to have Covid positive pneumonia ID input is appreciated patient on dexamethasone for complete 10 days of therapy now started on remdesivir due to hypoxia also to complete 5 days therapy and Actemra a one- time. We will continue to monitor -Obtain q48-72h inflammatory markers - ferritin, Ddimer, CRP, LDH -Continue ceftriaxone 2 gm IV qday and azithromycin 500 mg PO qday for 5 days given elevated procal -Anticoagulation per hospital protocol -Proning as able -requested a stat CBC to further evaluate thrombocytosis that was noted yesterday. -called Serafin ring to update and got voicemail left a message, also called James David but his phone is unable to accept messages at this time. 03/10: Possible ileus versus bowel obstruction. Will obtain KUB. Continue to hold tube feeds at this time. We will also obtain GI consult if no resolution. Also patient noted to have urinary retention we will proceed with placing a Maya catheter. She does follow commands some when off sedation but gets easily agitated. Continue ICU management at this point. 03/11: Blood sugar still elevated adjusted nighttime insulin for better coverage. KUB concerning for radiopaque object possible tablet. Was not present on 03 08. We will repeat a KUB in a.m. to see if resolution versus ileus. Continue current management for COVID-19. Continue heparin drip for noted pulmonary embolism. Platelets actually improved despite being on heparin doubt HIT. Patient still requires critical care monitoring. Altered mental status still present. 03/12: Worsening leukocytosis this could be secondary to steroids. We will give Lasix today in addition to empiric vitamins. Chest x-ray shows worsening opacities will monitor closely. Continue full mechanical ventilation and restraints for safety. 03/13: At the time my examination patient was on fentanyl at 3 mcg, heparin drip, pressure control ventilation with a rate of 20, pressure support of 20, FiO2 of 35% and PEEP of 12 and ECMO blood change patient ventilation to assist control tidal volume 450, rate of 14, PEEP of 10 in the morning. RN reported the patient did not have a BM since admission and [facility] ordered mag citrate x1. 03/14: SBT trial per [facility], leukocytosis and D-dimer is improving. Patient is hyperglycemic and long-acting insulin dosage has been increased. Patient has pseudohyponatremia today. Nurse reported that patient central line was not drawing back blood and Cathflo was ordered. No acute events reported overnight. 03/15: Patient is severely agitated and SBT trial was not attempted today. Patient remains hyperglycemic and insulin has been adjusted accordingly. [facility] will start the patient on Seroquel and attempt to wean propofol. Patient was hypotensive after sedation was increased and she received a 500 mL LR bolus today. We will obtain the ECG in the a.m. to assess QTc. RN to attempt to obtain PIV 03/16: Patient still has moments of severe agitation and her Seroquel will be increased today. Patient's urinary catheter was replaced due to retention patient has been started on Flomax. At the time my examination patient patient was sedated on propofol and fentanyl on AC. Patient still has leukocytosis and hyperglycemia. Insulin increased. We will obtain triglyceride level in the morning. [facility] opted to removal otis and replace CVL with PICC. 03/17: This morning the time of examination patient sedated on propofol and fentanyl assist control ventilation tidal volume 450, rate of 14, PEEP of 8 and 35% FiO2. EKG this a.m. showed a QTC of 407. Patient was able to follow commands at time of examination. Patient will be started on precedex and heparin gtt changed to lovenox. Lantus increased 03/18: This morning patient was sedated with propofol, fentanyl, precedex gtt. RT to attempt SBT and will obtain an ABG after. Lantus decreased as steroids ended today. CCM to give one time dose of lasix. 03/19/2021: Patient seen and examined this morning, patient self extubated, on nasal cannula oxygen, patient waxing and waning with some delirium but speaking Portuguese and updated patient on her status. 03/20/21: Patient self extubated herself yesterday. Continue to maintain oxygen saturation, follow ABG., Pulmonary critical care following. Continue supportive care. Transferred to telemetry. 03/21/21: Patient today on 3 L nasal cannula, saturating well. PT recommended subacute rehab but patient is unfunded. Plan continue to monitor clinically. Discussed with CM for O2 arrangement and placement. Advance diet as tolerated. 03/22/21: remains on 4-5L o2. CM assisting with home O2 arrangement. plan to d/c home with home O2. Discussed discharge plan of care thoroughly with the patient and patient family by phone. Also discussed with the case management. Patient family wants to take her back to [place] when patient is feeling more stable. Patient is agreeable with the plan. 03/23/21: avionics manager has reached out to patient's roommate and according to him patient can come back to her apartment when she is discharged. Patient will be discharged home with home health and home oxygen along with a roller walker. Following discharge patient will like to go back to [facility] to relocate with her family. Patient was recommended to follow-up with PCP/or Dr. Childs in 1 week post discharge. She verbalized understanding and was agreeable with the plan. Disposition: [id number] HOME UNDER HOME TH Final Discharge Diagnosis (Prints w/discharge instructions): COVID-19 pneumonia. -Status post steroid, remdesivir and Actemra. Septic shock secondary to COVID-19 pneumonia. Acute hypoxic respiratory failure -status post intubation. Pulmonary embolism on AC. Left posterior tibial and peroneal veins DVT, on AC. Leukocytosis - downtrending. Lactic acidosis -improved. Thrombocytopenia (improved-03/08 HIT NEGATIVE). Oropharyngeal dysphagia. Urinary retention. Diabetes mellitus type 2 with hyperglycemia, stress induced. Acute metabolic encephalopathy due to sepsis, resolved. Morbid Obesity. Hypokalemia, repleted Time spent for discharge: 40 minutes Core Measure Documentation - Palliative Care Palliative Care/ Comfort Measures: Not Applicable - Core Measures Any of the following diagnoses?: none Exam - Physical Exam Narrative exam: Limited physical exam due to COVID-19 pandemic to minimize transmission of the disease and to preserve PPE. Vital reviewed and stable. GENERAL: well-developed well-nourished female lying on bed appeared to be in no discomfort. HEENT: Normocephalic. Atraumatic. NECK: Supple. CHEST/LUNGS: breathing nonlabored. HEART/CARDIOVASCULAR: Heart rate stable on telemetry ABDOMEN: Visibly not distended SKIN: There is no rash NEURO: No focal motor deficit. Follows command. MUSCULOSKELETAL: No joint effusion EXTRIMITY: No swelling, no cyanosis or clubbing. PSYCH: Cooperative. - Constitutional Vitals: Temp Pulse Resp BP Pulse Ox 99.2 F 72 18 120/62 95 03/22/21 05:12 03/22/21 05:12 03/22/21 05:12 03/22/21 05:12 03/22/21 08:18 Plan Activity: advance as tolerated Weight Bearing Status: Weight Bear as Tolerated Diet: low fat, low salt Special Instructions: home oxygen via (4L n/c) Durable Medical Equipment Needed Upon Discharge: Walker-Rolling Additional Instructions: Please check your blood glucose before meals and bedtime. Please take your Lantus twice a day as instructed and sliding scale of insulin as needed. Continue taking Eliquis for at least 3 months or until discontinued by your primary care physician. Please come back to the hospital if your symptoms worsen. Follow-up with your PCP in 1 week Follow up with: PRIMARY CARE, [Primary Care Provider] - 7 Days MARGI CHILDS MD [Staff Physician] - 7 Days Prescriptions: Apixaban [Eliquis] 5 mg PO Q12HR #60 tablet Lispro Insulin [HumaLOG] 0 unit SUB-Q ACHS 30 Days Insulin Glargine [Lantus VIAL] 10 units SUB-Q QAMDIAB 30 Days Albuterol Mdi (or & Nicu Only) [ProAir HFA Inhaler] 2 puff IH QID PRN #8.5 gram PRN Reason: Shortness Of Breath Ascorbic Acid [Vitamin C] 1,000 mg PO BID #14 tablet Cholecalciferol (Vitamin D3) [Vitamin D3] 5,000 unit PO DAILY #14 tablet Zinc Sulfate 220 mg PO QDAY #7 capsule Other Discharge Orders: Glucometer (Amb) Location: None Selected Glucometer supplies[Amb] Location: None Selected
--- NOTE | 2021-03-22 19:07 | Electrocardiograph Report ---
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
[2021-03-23] MEDS: INSULIN LISPRO 100 UNIT/ML SUB-Q SCH ×3 (07:30→17:25)
[2021-03-23] MEDS: INSULIN GLARGINE 100 UNITS/ML SUB-Q SCH (08:00)
--- NOTE | 2021-03-23 09:38 | Electrocardiograph Report ---
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
--- NOTE | 2021-03-23 11:48 | Progress Note ---
Assessment and Plan Patient awake. Patient says breathing better. No complaint of chest pain, cough or shortness of breath at this time. [place] is on 4 litres O2 . O2 saturation 97%. Patient afebrile. No leukocytosis. Blood pressre 112/40. Chest xray done 03/19/21 reported Diffuse bilateral pulmonary opacities. Patient has CTA chest on 03/07/21 reported Multiple small peripheral bilateral lower lobe pulmonary emboli are present. Diffuse severe bilateral pulmonary opacities most likely related to severe bilateral pneumonia. Patient is on Apixaban, Famotidine and albuterol inhaler. - Patient Problems (1) Acute respiratory failure with hypoxemia Current Visit: Yes Status: Acute Plan to address problem: Patient intubated and extubated. Patient is on 4 litres o2. o2 saturation 97% Albuterol inhaler 2 puffs po qid. (2) Coronavirus infection Current Visit: Yes Status: Acute Plan to address problem: Patients [place] virus PCR Positive. Management as per infectious diseases. (3) Pneumonia due to coronavirus disease 2019 Current Visit: Yes Status: Acute Plan to address problem: Patient was treated with Zithromax, Ceftriaxone,Vancomycin. (4) Pulmonary embolism Current Visit: Yes Status: Acute Plan to address problem: Patient is on Apixaban. Subjective Date of service: 03/22/21 Principal diagnosis: Ac. hypoxemic resp. failure; Septic Shock; COVID-19 Pneumonia; VTE; NSTEMI Interval history: Patient awake. Patient says breathing better. No complaint of chest pain, cough or shortness of breath at this time. [place] is on 4 litres O2 . O2 saturation 97%. Patient afebrile. No leukocytosis. Blood pressre 112/40. Chest xray done 03/19/21 reported Diffuse bilateral pulmonary opacities. Patient has CTA chest on 03/07/21 reported Multiple small peripheral bilateral lower lobe pulmonary emboli are present. Diffuse severe bilateral pulmonary opacities most likely related to severe bilateral pneumonia. Patient is on Apixaban, Famotidine and albuterol inhaler. Objective Vital Signs - 12hr 03/23/21 03/23/21 03/23/21 00:00 04:00 08:09 Pulse Rate 80 80 O2 Sat by Pulse 96 Oximetry Constitutional: no acute distress, alert Eyes: non-icteric ENT: oropharynx dry Neck: supple, no lymphadenopathy, other (large circumference) Effort: normal Ascultation: Bilateral: diminished breath sounds, rales (bases anteriorly) Percussion: Bilateral: not dull Cardiovascular: regular rate and rhythm, other (S1,S2) Gastrointestinal: normoactive bowel sounds, soft, non-tender, non-distended (protuberant) Integumentary: normal Extremities: no cyanosis, pink and warm, pulses normal, edema (1+ bilateral lower and upper extremites) Neurologic: normal mental status, non-focal exam (moves all extremities), pupils equal and round, CN II-XII normal, motor strength normal and Psychiatric: affect normal, anxious, other CBC and BMP: 03/21/21 10:00 03/23/21 05:30 ABG, PT/INR, D-dimer: ABG ABG pH 7.437 (7.320-7.450) 03/19/21 04:45 POC ABG pCO2 46.8 mmHg (32.0-48.0) 03/19/21 04:45 ABG pCO2 41.0 mm Hg 03/18/21 10:40 POC ABG pO2 97.0 mmHg (83-108) 03/19/21 04:45 ABG pO2 65.2 mm Hg (80.0-90.0) L 03/18/21 10:40 POC ABG HCO3 30.9 03/19/21 04:45 ABG O2 Saturation 97.3 (0-100) 03/19/21 04:45 PT/INR, D-dimer PT 15.4 Sec. (12.2-14.9) H 03/20/21 09:44 INR 1.17 (0.87-1.13) H 03/20/21 09:44 D-Dimer 4136.20 ng/mlDDU (0-234) H 03/20/21 Unknown Abnormal lab findings: Abnormal Labs 03/07/21 03/07/21 03/07/21 13:00 20:31 20:31 WBC RBC Hgb Hct RDW Plt Count Seg Neuts % (Manual) Lymphocytes % (Manual) Nucleated RBC % Seg Neutrophils # Man Lymphocytes # (Manual) Monocytes # (Manual) PT INR APTT D-Dimer > 39347 H Heparin Anti-Xa Level ABG pH POC ABG pCO2 POC ABG pO2 ABG pO2 ABG HCO3 ABG O2 Saturation ABG Base Excess ABG Hemoglobin ABG Oxyhemoglobin ABG Sodium ABG Potassium ABG Chloride ABG Glucose Oxyhemoglobin Carboxyhemoglobin Sodium 133 L Potassium Chloride 94.6 L Carbon Dioxide 17 L BUN 22 H Creatinine Glucose 309 H POC Glucose Hemoglobin A1c Lactic Acid 5.10 H* Calcium Ferritin Lactate Dehydrogenase Troponin T 0.085 H C-Reactive Protein Total Protein Albumin 3.5 L Triglycerides 213 H HDL Cholesterol 34 L Arterial Blood Glucose Arterial Blood Ionized Calcium Ur Specific Dexter Coronavirus (PCR) 03/07/21 03/07/21 03/07/21 20:31 21:04 21:28 WBC 31.6 H RBC Hgb Hct RDW 15.3 H Plt Count Seg Neuts % (Manual) 73.0 H Lymphocytes % (Manual) 11.5 L Nucleated RBC % 7.0 H Seg Neutrophils # Man 23.1 H Lymphocytes # (Manual) Monocytes # (Manual) 1.7 H PT INR APTT D-Dimer > 69626 H Heparin Anti-Xa Level ABG pH POC ABG pCO2 POC ABG pO2 ABG pO2 ABG HCO3 ABG O2 Saturation ABG Base Excess ABG Hemoglobin ABG Oxyhemoglobin ABG Sodium ABG Potassium ABG Chloride ABG Glucose Oxyhemoglobin Carboxyhemoglobin Sodium Potassium Chloride Carbon Dioxide BUN Creatinine Glucose 301 H POC Glucose Hemoglobin A1c Lactic Acid Calcium Ferritin Lactate Dehydrogenase 1259 H Troponin T C-Reactive Protein 25.50 H Total Protein Albumin Triglycerides HDL Cholesterol Arterial Blood Glucose Arterial Blood Ionized Calcium Ur Specific Dexter Coronavirus (PCR) 03/07/21 03/07/21 03/07/21 21:28 22:48 Unknown WBC RBC Hgb Hct RDW Plt Count Seg Neuts % (Manual) Lymphocytes % (Manual) Nucleated RBC % Seg Neutrophils # Man Lymphocytes # (Manual) Monocytes # (Manual) PT INR APTT D-Dimer Heparin Anti-Xa Level ABG pH POC ABG pCO2 POC ABG pO2 ABG pO2 ABG HCO3 ABG O2 Saturation ABG Base Excess ABG Hemoglobin ABG Oxyhemoglobin ABG Sodium ABG Potassium ABG Chloride ABG Glucose Oxyhemoglobin Carboxyhemoglobin Sodium Potassium Chloride Carbon Dioxide BUN Creatinine Glucose POC Glucose Hemoglobin A1c Lactic Acid 6.00 H* 3.40 H* Calcium Ferritin Lactate Dehydrogenase Troponin T C-Reactive Protein Total Protein Albumin Triglycerides HDL Cholesterol Arterial Blood Glucose Arterial Blood Ionized Calcium Ur Specific Dexter Coronavirus (PCR) Positive A 0603/08/21 03/08/21 Unknown 05:51 06:18 WBC 27.5 H RBC Hgb Hct RDW Plt Count 108 L Seg Neuts % (Manual) 85.0 H Lymphocytes % (Manual) 1.0 L Nucleated RBC % 7.0 H Seg Neutrophils # Man 23.4 H Lymphocytes # (Manual) 0.3 L Monocytes # (Manual) PT INR APTT D-Dimer Heparin Anti-Xa Level ABG pH 7.338 L POC ABG pCO2 POC ABG pO2 ABG pO2 62.6 L ABG HCO3 ABG O2 Saturation 89.1 L ABG Base Excess -4.7 L ABG Hemoglobin ABG Oxyhemoglobin ABG Sodium ABG Potassium ABG Chloride ABG Glucose Oxyhemoglobin 87.3 L Carboxyhemoglobin Sodium Potassium Chloride Carbon Dioxide BUN Creatinine Glucose POC Glucose Hemoglobin A1c Lactic Acid Calcium Ferritin Lactate Dehydrogenase Troponin T C-Reactive Protein Total Protein Albumin Triglycerides HDL Cholesterol Arterial Blood Glucose Arterial Blood Ionized Calcium Ur Specific Dex[place] > 1.050 H Coronavirus (PCR) 03/08/21 03/08/21 03/08/21 06:18 06:18 07:29 WBC RBC Hgb Hct RDW Plt Count Seg Neuts % (Manual) Lymphocytes % (Manual) Nucleated RBC % Seg Neutrophils # Man Lymphocytes # (Manual) Monocytes # (Manual) PT 20.3 H INR 1.69 H APTT D-Dimer Heparin Anti-Xa Level ABG pH POC ABG pCO2 POC ABG pO2 ABG pO2 ABG HCO3 ABG O2 Saturation ABG Base Excess ABG Hemoglobin ABG Oxyhemoglobin ABG Sodium ABG Potassium ABG Chloride ABG Glucose Oxyhemoglobin Carboxyhemoglobin Sodium Potassium Chloride Carbon Dioxide BUN 21 H Creatinine Glucose 188 H POC Glucose 192 H Hemoglobin A1c Lactic Acid Calcium 6.8 L D Ferritin Lactate Dehydrogenase Troponin T C-Reactive Protein Total Protein Albumin Triglycerides HDL Cholesterol Arterial Blood Glucose Arterial Blood Ionized Calcium Ur Specific Dexter Coronavirus (PCR) 03/08/21 03/08/21 03/08/21 07:55 08:06 11:35 WBC RBC Hgb Hct RDW Plt Count Seg Neuts % (Manual) Lymphocytes % (Manual) Nucleated RBC % Seg Neutrophils # Man Lymphocytes # (Manual) Monocytes # (Manual) PT 18.5 H INR 1.49 H APTT 113.5 H* D-Dimer Heparin Anti-Xa Level ABG pH 7.311 L POC ABG pCO2 POC ABG pO2 ABG pO2 ABG HCO3 ABG O2 Saturation ABG Base Excess ABG Hemoglobin 11.8 L ABG Oxyhemoglobin ABG Sodium ABG Potassium ABG Chloride 111.0 H ABG Glucose 176 H Oxyhemoglobin Carboxyhemoglobin 0.4 L Sodium Potassium Chloride Carbon Dioxide BUN Creatinine Glucose POC Glucose 142 H Hemoglobin A1c Lactic Acid Calcium Ferritin Lactate Dehydrogenase Troponin T C-Reactive Protein Total Protein Albumin Triglycerides HDL Cholesterol Arterial Blood Glucose 176 H Arterial Blood Ionized Calcium 4.1 L Ur Specific Dexter Coronavirus (PCR) 03/08/21 03/08/21 03/08/21 13:00 16:59 21:00 WBC RBC Hgb Hct RDW Plt Count Seg Neuts % (Manual) Lymphocytes % (Manual) Nucleated RBC % Seg Neutrophils # Man Lymphocytes # (Manual) Monocytes # (Manual) PT INR APTT D-Dimer Heparin Anti-Xa Level 0.22 L ABG pH POC ABG pCO2 30.1 L POC ABG pO2 74.9 L ABG pO2 ABG HCO3 ABG O2 Saturation ABG Base Excess ABG Hemoglobin 10.0 L ABG Oxyhemoglobin 93.8 L ABG Sodium ABG Potassium ABG Chloride 113.0 H ABG Glucose 250 H Oxyhemoglobin Carboxyhemoglobin 0.3 L Sodium Potassium Chloride Carbon Dioxide BUN Creatinine Glucose POC Glucose 196 H Hemoglobin A1c Lactic Acid Calcium Ferritin Lactate Dehydrogenase Troponin T C-Reactive Protein Total Protein Albumin Triglycerides HDL Cholesterol Arterial Blood Glucose 250 H Arterial Blood Ionized Calcium 4.0 L Ur Specific Dex[place] Coronavirus (PCR) 03/08/21 03/08/21 03/09/21 21:19 21:30 03:14 WBC RBC Hgb Hct RDW Plt Count Seg Neuts % (Manual) Lymphocytes % (Manual) Nucleated RBC % Seg Neutrophils # Man Lymphocytes # (Manual) Monocytes # (Manual) PT INR APTT D-Dimer Heparin Anti-Xa Level 0.16 L ABG pH POC ABG pCO2 31.0 L POC ABG pO2 80.4 L ABG pO2 ABG HCO3 ABG O2 Saturation ABG Base Excess ABG Hemoglobin 9.4 L ABG Oxyhemoglobin ABG Sodium ABG Potassium ABG Chloride 114.0 H ABG Glucose 249 H Oxyhemoglobin Carboxyhemoglobin 0.3 L Sodium Potassium Chloride Carbon Dioxide BUN Creatinine Glucose POC Glucose 250 H Hemoglobin A1c Lactic Acid Calcium Ferritin Lactate Dehydrogenase Troponin T C-Reactive Protein Total Protein Albumin Triglycerides HDL Cholesterol Arterial Blood Glucose 249 H Arterial Blood Ionized Calcium 4.1 L Ur Specific Dex[place] Coronavirus (PCR) 03/09/21 03/09/21 03/09/21 05:26 06:31 11:25 WBC RBC Hgb Hct RDW Plt Count Seg Neuts % (Manual) Lymphocytes % (Manual) Nucleated RBC % Seg Neutrophils # Man Lymphocytes # (Manual) Monocytes # (Manual) PT INR APTT D-Dimer Heparin Anti-Xa Level ABG pH POC ABG pCO2 POC ABG pO2 ABG pO2 ABG HCO3 ABG O2 Saturation ABG Base Excess ABG Hemoglobin ABG Oxyhemoglobin ABG Sodium ABG Potassium ABG Chloride ABG Glucose Oxyhemoglobin Carboxyhemoglobin Sodium Potassium Chloride 110.6 H Carbon Dioxide 20 L BUN 22 H Creatinine Glucose 244 H POC Glucose 217 H 235 H Hemoglobin A1c Lactic Acid Calcium 6.7 L Ferritin Lactate Dehydrogenase Troponin T C-Reactive Protein Total Protein 5.6 L D Albumin 2.5 L Triglycerides HDL Cholesterol Arterial Blood Glucose Arterial Blood Ionized Calcium Ur Specific Dex[place] Coronavirus (PCR) 03/09/21 03/09/21 03/09/21 12:10 17:29 23:13 WBC 24.1 H RBC 3.29 L Hgb 9.3 L Hct 28.7 L RDW 15.5 H Plt Count Seg Neuts % (Manual) 84.0 H Lymphocytes % (Manual) 1.0 L Nucleated RBC % 3.0 H Seg Neutrophils # Man 20.2 H Lymphocytes # (Manual) 0.2 L Monocytes # (Manual) PT INR APTT D-Dimer Heparin Anti-Xa Level ABG pH POC ABG pCO2 POC ABG pO2 ABG pO2 ABG HCO3 ABG O2 Saturation ABG Base Excess ABG Hemoglobin ABG Oxyhemoglobin ABG Sodium ABG Potassium ABG Chloride ABG Glucose Oxyhemoglobin Carboxyhemoglobin Sodium Potassium Chloride Carbon Dioxide BUN Creatinine Glucose POC Glucose 279 H 284 H Hemoglobin A1c Lactic Acid Calcium Ferritin Lactate Dehydrogenase Troponin T C-Reactive Protein Total Protein Albumin Triglycerides HDL Cholesterol Arterial Blood Glucose Arterial Blood Ionized Calcium Ur Specific Dex[place] Coronavirus (PCR) 03/10/21 03/10/21 03/10/21 01:12 03:29 04:32 WBC 22.6 H 21.5 H RBC 3.31 L 3.33 L Hgb 9.3 L 9.4 L Hct 28.9 L 28.9 L RDW 15.3 H Plt Count Seg Neuts % (Manual) 89.0 H Lymphocytes % (Manual) 6.0 L Nucleated RBC % Seg Neutrophils # Man 20.1 H Lymphocytes # (Manual) Monocytes # (Manual) 1.1 H PT INR APTT D-Dimer Heparin Anti-Xa Level ABG pH POC ABG pCO2 26.7 L POC ABG pO2 148.7 H ABG pO2 ABG HCO3 ABG O2 Saturation ABG Base Excess ABG Hemoglobin 9.5 L ABG Oxyhemoglobin 98.3 H ABG Sodium ABG Potassium 4.7 H ABG Chloride 114.0 H ABG Glucose 263 H Oxyhemoglobin Carboxyhemoglobin 0.3 L Sodium Potassium Chloride Carbon Dioxide BUN Creatinine Glucose POC Glucose Hemoglobin A1c Lactic Acid Calcium Ferritin Lactate Dehydrogenase Troponin T C-Reactive Protein Total Protein Albumin Triglycerides HDL Cholesterol Arterial Blood Glucose 263 H Arterial Blood Ionized Calcium 4.4 L Ur Specific Dex[place] Coronavirus (PCR) 03/10/21 03/10/21 03/10/21 04:32 04:32 05:26 WBC RBC Hgb Hct RDW Plt Count Seg Neuts % (Manual) Lymphocytes % (Manual) Nucleated RBC % Seg Neutrophils # Man Lymphocytes # (Manual) Monocytes # (Manual) PT INR APTT D-Dimer Heparin Anti-Xa Level ABG pH POC ABG pCO2 POC ABG pO2 ABG pO2 ABG HCO3 ABG O2 Saturation ABG Base Excess ABG Hemoglobin ABG Oxyhemoglobin ABG Sodium ABG Potassium ABG Chloride ABG Glucose Oxyhemoglobin Carboxyhemoglobin Sodium Potassium Chloride 112.2 H 111.0 H Carbon Dioxide 21 L 21 L BUN 24 H 25 H Creatinine Glucose 262 H 258 H POC Glucose 246 H Hemoglobin A1c Lactic Acid Calcium 7.5 L 7.3 L Ferritin Lactate Dehydrogenase Troponin T C-Reactive Protein Total Protein 5.8 L Albumin 2.8 L Triglycerides HDL Cholesterol Arterial Blood Glucose Arterial Blood Ionized Calcium Ur Specific Dexter Coronavirus (PCR) 03/10/21 03/10/21 03/10/21 11:50 17:18 21:39 WBC RBC Hgb Hct RDW Plt Count Seg Neuts % (Manual) Lymphocytes % (Manual) Nucleated RBC % Seg Neutrophils # Man Lymphocytes # (Manual) Monocytes # (Manual) PT INR APTT D-Dimer Heparin Anti-Xa Level ABG pH POC ABG pCO2 POC ABG pO2 ABG pO2 ABG HCO3 ABG O2 Saturation ABG Base Excess ABG Hemoglobin ABG Oxyhemoglobin ABG Sodium ABG Potassium ABG Chloride ABG Glucose Oxyhemoglobin Carboxyhemoglobin Sodium Potassium Chloride Carbon Dioxide BUN Creatinine Glucose POC Glucose 234 H 248 H 242 H Hemoglobin A1c Lactic Acid Calcium Ferritin Lactate Dehydrogenase Troponin T C-Reactive Protein Total Protein Albumin Triglycerides HDL Cholesterol Arterial Blood Glucose Arterial Blood Ionized Calcium Ur Specific Dex[place] Coronavirus (PCR) 03/10/21 03/11/21 03/11/21 22:39 02:12 04:40 WBC RBC Hgb Hct RDW Plt Count Seg Neuts % (Manual) Lymphocytes % (Manual) Nucleated RBC % Seg Neutrophils # Man Lymphocytes # (Manual) Monocytes # (Manual) PT INR APTT D-Dimer Heparin Anti-Xa Level ABG pH 7.481 H POC ABG pCO2 27.3 L POC ABG pO2 180.2 H ABG pO2 ABG HCO3 ABG O2 Saturation ABG Base Excess ABG Hemoglobin 11.2 L ABG Oxyhemoglobin 99.1 H ABG Sodium ABG Potassium ABG Chloride 111.0 H ABG Glucose 311 H Oxyhemoglobin Carboxyhemoglobin 0.2 L Sodium Potassium Chloride 108.6 H Carbon Dioxide 21 L BUN 23 H Creatinine Glucose 276 H POC Glucose 245 H Hemoglobin A1c Lactic Acid Calcium 8.0 L Ferritin Lactate Dehydrogenase Troponin T C-Reactive Protein Total Protein 6.1 L Albumin 3.2 L Triglycerides HDL Cholesterol Arterial Blood Glucose 311 H Arterial Blood Ionized Calcium 4.5 L Ur Specific Dexter Coronavirus (PCR) 03/11/21 03/11/21 03/11/21 04:55 12:35 18:15 WBC RBC Hgb Hct RDW Plt Count Seg Neuts % (Manual) Lymphocytes % (Manual) Nucleated RBC % Seg Neutrophils # Man Lymphocytes # (Manual) Monocytes # (Manual) PT INR APTT D-Dimer Heparin Anti-Xa Level ABG pH POC ABG pCO2 POC ABG pO2 ABG pO2 ABG HCO3 ABG O2 Saturation ABG Base Excess ABG Hemoglobin ABG Oxyhemoglobin ABG Sodium ABG Potassium ABG Chloride ABG Glucose Oxyhemoglobin Carboxyhemoglobin Sodium Potassium Chloride Carbon Dioxide BUN Creatinine Glucose POC Glucose 260 H 273 H 283 H Hemoglobin A1c Lactic Acid Calcium Ferritin Lactate Dehydrogenase Troponin T C-Reactive Protein Total Protein Albumin Triglycerides HDL Cholesterol Arterial Blood Glucose Arterial Blood Ionized Calcium Ur Specific Dexter Coronavirus (PCR) 03/11/21 03/12/21 03/12/21 23:17 04:00 05:39 WBC RBC Hgb Hct RDW Plt Count Seg Neuts % (Manual) Lymphocytes % (Manual) Nucleated RBC % Seg Neutrophils # Man Lymphocytes # (Manual) Monocytes # (Manual) PT INR APTT D-Dimer Heparin Anti-Xa Level ABG pH 7.463 H POC ABG pCO2 30.9 L POC ABG pO2 ABG pO2 ABG HCO3 ABG O2 Saturation ABG Base Excess ABG Hemoglobin 10.7 L ABG Oxyhemoglobin ABG Sodium ABG Potassium ABG Chloride ABG Glucose 310 H Oxyhemoglobin Carboxyhemoglobin 0.3 L Sodium Potassium Chloride Carbon Dioxide BUN Creatinine Glucose POC Glucose 280 H 278 H Hemoglobin A1c Lactic Acid Calcium Ferritin Lactate Dehydrogenase Troponin T C-Reactive Protein Total Protein Albumin Triglycerides HDL Cholesterol Arterial Blood Glucose 310 H Arterial Blood Ionized Calcium Ur Specific Dex[place] Coronavirus (PCR) 03/12/21 03/12/21 03/12/21 05:52 05:52 13:02 WBC 41.7 H* RBC Hgb Hct RDW Plt Count Seg Neuts % (Manual) Lymphocytes % (Manual) Nucleated RBC % Seg Neutrophils # Man Lymphocytes # (Manual) Monocytes # (Manual) PT INR APTT D-Dimer Heparin Anti-Xa Level ABG pH POC ABG pCO2 POC ABG pO2 ABG pO2 ABG HCO3 ABG O2 Saturation ABG Base Excess ABG Hemoglobin ABG Oxyhemoglobin ABG Sodium ABG Potassium ABG Chloride ABG Glucose Oxyhemoglobin Carboxyhemoglobin Sodium Potassium Chloride 107.5 H Carbon Dioxide BUN Creatinine 0.5 L Glucose 297 H POC Glucose 345 H Hemoglobin A1c Lactic Acid Calcium 8.1 L Ferritin Lactate Dehydrogenase Troponin T C-Reactive Protein Total Protein Albumin Triglycerides HDL Cholesterol Arterial Blood Glucose Arterial Blood Ionized Calcium Ur Specific Dex[place] Coronavirus (PCR) 03/12/21 03/12/21 03/13/21 17:11 23:32 04:00 WBC RBC Hgb Hct RDW Plt Count Seg Neuts % (Manual) Lymphocytes % (Manual) Nucleated RBC % Seg Neutrophils # Man Lymphocytes # (Manual) Monocytes # (Manual) PT INR APTT D-Dimer Heparin Anti-Xa Level 0.29 L ABG pH POC ABG pCO2 POC ABG pO2 ABG pO2 ABG HCO3 ABG O2 Saturation ABG Base Excess ABG Hemoglobin ABG Oxyhemoglobin ABG Sodium ABG Potassium ABG Chloride ABG Glucose Oxyhemoglobin Carboxyhemoglobin Sodium Potassium Chloride Carbon Dioxide BUN Creatinine Glucose POC Glucose 383 H 282 H Hemoglobin A1c Lactic Acid Calcium Ferritin Lactate Dehydrogenase Troponin T C-Reactive Protein Total Protein Albumin Triglycerides HDL Cholesterol Arterial Blood Glucose Arterial Blood Ionized Calcium Ur Specific Dex[place] Coronavirus (PCR) 03/13/21 03/13/21 03/13/21 04:00 04:00 05:28 WBC 32.9 H RBC Hgb Hct RDW Plt Count Seg Neuts % (Manual) Lymphocytes % (Manual) Nucleated RBC % Seg Neutrophils # Man Lymphocytes # (Manual) Monocytes # (Manual) PT INR APTT D-Dimer Heparin Anti-Xa Level ABG pH POC ABG pCO2 POC ABG pO2 ABG pO2 ABG HCO3 ABG O2 Saturation ABG Base Excess ABG Hemoglobin ABG Oxyhemoglobin ABG Sodium ABG Potassium ABG Chloride ABG Glucose Oxyhemoglobin Carboxyhemoglobin Sodium Potassium Chloride Carbon Dioxide BUN 18 H Creatinine 0.4 L Glucose 316 H POC Glucose 318 H Hemoglobin A1c Lactic Acid Calcium Ferritin Lactate Dehydrogenase Troponin T C-Reactive Protein Total Protein Albumin Triglycerides HDL Cholesterol Arterial Blood Glucose Arterial Blood Ionized Calcium Ur Specific Dexter Coronavirus (PCR) 03/13/21 03/13/21 03/13/21 05:58 12:41 13:41 WBC RBC Hgb Hct RDW Plt Count Seg Neuts % (Manual) Lymphocytes % (Manual) Nucleated RBC % Seg Neutrophils # Man Lymphocytes # (Manual) Monocytes # (Manual) PT INR APTT D-Dimer Heparin Anti-Xa Level ABG pH 7.465 H POC ABG pCO2 POC ABG pO2 79.5 L ABG pO2 ABG HCO3 ABG O2 Saturation ABG Base Excess ABG Hemoglobin 10.6 L ABG Oxyhemoglobin ABG Sodium ABG Potassium ABG Chloride ABG Glucose 319 H Oxyhemoglobin Carboxyhemoglobin 0.4 L Sodium Potassium Chloride Carbon Dioxide BUN Creatinine Glucose POC Glucose 304 H 342 H Hemoglobin A1c Lactic Acid Calcium Ferritin Lactate Dehydrogenase Troponin T C-Reactive Protein Total Protein Albumin Triglycerides HDL Cholesterol Arterial Blood Glucose 319 H Arterial Blood Ionized Calcium 4.5 L Ur Specific Dexter Coronavirus (PCR) 03/13/21 03/13/21 03/14/21 17:23 23:14 04:52 WBC RBC Hgb Hct RDW Plt Count Seg Neuts % (Manual) Lymphocytes % (Manual) Nucleated RBC % Seg Neutrophils # Man Lymphocytes # (Manual) Monocytes # (Manual) PT INR APTT D-Dimer Heparin Anti-Xa Level ABG pH POC ABG pCO2 POC ABG pO2 ABG pO2 ABG HCO3 ABG O2 Saturation ABG Base Excess ABG Hemoglobin ABG Oxyhemoglobin ABG Sodium ABG Potassium ABG Chloride ABG Glucose Oxyhemoglobin Carboxyhemoglobin Sodium Potassium Chloride Carbon Dioxide BUN Creatinine Glucose POC Glucose 336 H 257 H 266 H Hemoglobin A1c Lactic Acid Calcium Ferritin Lactate Dehydrogenase Troponin T C-Reactive Protein Total Protein Albumin Triglycerides HDL Cholesterol Arterial Blood Glucose Arterial Blood Ionized Calcium Ur Specific Dexter Coronavirus (PCR) 03/14/21 03/14/21 03/14/21 08:35 08:35 08:35 WBC 21.9 H RBC Hgb Hct RDW 15.4 H Plt Count Seg Neuts % (Manual) Lymphocytes % (Manual) Nucleated RBC % Seg Neutrophils # Man Lymphocytes # (Manual) Monocytes # (Manual) PT INR APTT D-Dimer 4053.87 H Heparin Anti-Xa Level < 0.10 L ABG pH POC ABG pCO2 POC ABG pO2 ABG pO2 ABG HCO3 ABG O2 Saturation ABG Base Excess ABG Hemoglobin ABG Oxyhemoglobin ABG Sodium ABG Potassium ABG Chloride ABG Glucose Oxyhemoglobin Carboxyhemoglobin Sodium 131 L D Potassium Chloride 96.3 L Carbon Dioxide BUN 19 H Creatinine 0.3 L Glucose 265 H POC Glucose Hemoglobin A1c Lactic Acid Calcium Ferritin Lactate Dehydrogenase 768 H Troponin T C-Reactive Protein Total Protein Albumin Triglycerides HDL Cholesterol Arterial Blood Glucose Arterial Blood Ionized Calcium Ur Specific Dexter Coronavirus (PCR) 03/14/21 03/14/21 03/14/21 08:35 11:49 16:50 WBC RBC Hgb Hct RDW Plt Count Seg Neuts % (Manual) Lymphocytes % (Manual) Nucleated RBC % Seg Neutrophils # Man Lymphocytes # (Manual) Monocytes # (Manual) PT INR APTT D-Dimer Heparin Anti-Xa Level ABG pH 7.518 H POC ABG pCO2 POC ABG pO2 ABG pO2 ABG HCO3 ABG O2 Saturation ABG Base Excess ABG Hemoglobin 11.0 L ABG Oxyhemoglobin ABG Sodium 130.5 L ABG Potassium ABG Chloride 95.0 L ABG Glucose 325 H Oxyhemoglobin Carboxyhemoglobin Sodium Potassium Chloride Carbon Dioxide BUN Creatinine Glucose POC Glucose 256 H Hemoglobin A1c Lactic Acid Calcium Ferritin 209.5 H Lactate Dehydrogenase Troponin T C-Reactive Protein Total Protein Albumin Triglycerides HDL Cholesterol Arterial Blood Glucose 325 H Arterial Blood Ionized Calcium 4.5 L Ur Specific Dexter Coronavirus (PCR) 03/14/21 03/14/21 03/14/21 18:18 19:39 22:05 WBC RBC Hgb Hct RDW Plt Count Seg Neuts % (Manual) Lymphocytes % (Manual) Nucleated RBC % Seg Neutrophils # Man Lymphocytes # (Manual) Monocytes # (Manual) PT INR APTT D-Dimer Heparin Anti-Xa Level 0.19 L ABG pH POC ABG pCO2 POC ABG pO2 ABG pO2 ABG HCO3 ABG O2 Saturation ABG Base Excess ABG Hemoglobin ABG Oxyhemoglobin ABG Sodium ABG Potassium ABG Chloride ABG Glucose Oxyhemoglobin Carboxyhemoglobin Sodium Potassium Chloride Carbon Dioxide BUN Creatinine Glucose POC Glucose 299 H 276 H Hemoglobin A1c Lactic Acid Calcium Ferritin Lactate Dehydrogenase Troponin T C-Reactive Protein Total Protein Albumin Triglycerides HDL Cholesterol Arterial Blood Glucose Arterial Blood Ionized Calcium Ur Specific Dexter Coronavirus (PCR) 03/14/21 03/15/21 03/15/21 23:47 03:10 05:13 WBC RBC Hgb Hct RDW Plt Count Seg Neuts % (Manual) Lymphocytes % (Manual) Nucleated RBC % Seg Neutrophils # Man Lymphocytes # (Manual) Monocytes # (Manual) PT INR APTT D-Dimer Heparin Anti-Xa Level ABG pH 7.515 H POC ABG pCO2 POC ABG pO2 ABG pO2 ABG HCO3 ABG O2 Saturation ABG Base Excess ABG Hemoglobin 11.0 L ABG Oxyhemoglobin ABG Sodium 131.4 L ABG Potassium ABG Chloride 95.0 L ABG Glucose 239 H Oxyhemoglobin Carboxyhemoglobin Sodium Potassium Chloride Carbon Dioxide BUN Creatinine Glucose POC Glucose 344 H 245 H Hemoglobin A1c Lactic Acid Calcium Ferritin Lactate Dehydrogenase Troponin T C-Reactive Protein Total Protein Albumin Triglycerides HDL Cholesterol Arterial Blood Glucose 239 H Arterial Blood Ionized Calcium 4.5 L Ur Specific Dexter Coronavirus (PCR) 03/15/21 03/15/21 03/15/21 06:00 11:40 17:07 WBC RBC Hgb Hct RDW Plt Count Seg Neuts % (Manual) Lymphocytes % (Manual) Nucleated RBC % Seg Neutrophils # Man Lymphocytes # (Manual) Monocytes # (Manual) PT INR APTT D-Dimer Heparin Anti-Xa Level ABG pH POC ABG pCO2 POC ABG pO2 ABG pO2 ABG HCO3 ABG O2 Saturation ABG Base Excess ABG Hemoglobin ABG Oxyhemoglobin ABG Sodium ABG Potassium ABG Chloride ABG Glucose Oxyhemoglobin Carboxyhemoglobin Sodium 136 L Potassium Chloride 94.6 L Carbon Dioxide 31 H BUN Creatinine 0.3 L Glucose 227 H POC Glucose 224 H 324 H Hemoglobin A1c Lactic Acid Calcium Ferritin Lactate Dehydrogenase Troponin T C-Reactive Protein Total Protein Albumin Triglycerides HDL Cholesterol Arterial Blood Glucose Arterial Blood Ionized Calcium Ur Specific Dexter Coronavirus (PCR) 03/15/21 03/16/21 03/16/21 23:42 05:49 07:43 WBC 26.2 H RBC Hgb Hct RDW Plt Count Seg Neuts % (Manual) Lymphocytes % (Manual) Nucleated RBC % Seg Neutrophils # Man Lymphocytes # (Manual) Monocytes # (Manual) PT INR APTT D-Dimer Heparin Anti-Xa Level ABG pH POC ABG pCO2 POC ABG pO2 ABG pO2 ABG HCO3 ABG O2 Saturation ABG Base Excess ABG Hemoglobin ABG Oxyhemoglobin ABG Sodium ABG Potassium ABG Chloride ABG Glucose Oxyhemoglobin Carboxyhemoglobin Sodium Potassium Chloride Carbon Dioxide BUN Creatinine Glucose POC Glucose 278 H 216 H Hemoglobin A1c Lactic Acid Calcium Ferritin Lactate Dehydrogenase Troponin T C-Reactive Protein Total Protein Albumin Triglycerides HDL Cholesterol Arterial Blood Glucose Arterial Blood Ionized Calcium Ur Specific Dexter Coronavirus (PCR) 03/16/21 03/16/21 03/16/21 07:43 07:43 07:43 WBC RBC Hgb Hct RDW Plt Count Seg Neuts % (Manual) Lymphocytes % (Manual) Nucleated RBC % Seg Neutrophils # Man Lymphocytes # (Manual) Monocytes # (Manual) PT INR APTT D-Dimer 4124.04 H Heparin Anti-Xa Level 1.69 H ABG pH POC ABG pCO2 POC ABG pO2 ABG pO2 ABG HCO3 ABG O2 Saturation ABG Base Excess ABG Hemoglobin ABG Oxyhemoglobin ABG Sodium ABG Potassium ABG Chloride ABG Glucose Oxyhemoglobin Carboxyhemoglobin Sodium Potassium Chloride Carbon Dioxide 32 H BUN Creatinine 0.4 L Glucose 230 H POC Glucose Hemoglobin A1c Lactic Acid Calcium Ferritin Lactate Dehydrogenase 662 H Troponin T C-Reactive Protein Total Protein Albumin Triglycerides HDL Cholesterol Arterial Blood Glucose Arterial Blood Ionized Calcium Ur Specific Dexter Coronavirus (PCR) 03/16/21 03/16/21 03/16/21 07:43 11:00 17:06 WBC RBC Hgb Hct RDW Plt Count Seg Neuts % (Manual) Lymphocytes % (Manual) Nucleated RBC % Seg Neutrophils # Man Lymphocytes # (Manual) Monocytes # (Manual) PT INR APTT D-Dimer Heparin Anti-Xa Level 0.78 H ABG pH POC ABG pCO2 POC ABG pO2 ABG pO2 ABG HCO3 ABG O2 Saturation ABG Base Excess ABG Hemoglobin ABG Oxyhemoglobin ABG Sodium ABG Potassium ABG Chloride ABG Glucose Oxyhemoglobin Carboxyhemoglobin Sodium Potassium Chloride Carbon Dioxide BUN Creatinine Glucose POC Glucose 239 H Hemoglobin A1c Lactic Acid Calcium Ferritin Lactate Dehydrogenase Troponin T C-Reactive Protein Total Protein Albumin Triglycerides 173 H HDL Cholesterol Arterial Blood Glucose Arterial Blood Ionized Calcium Ur Specific Dexter Coronavirus (PCR) 03/16/21 03/16/21 03/17/21 17:07 23:16 00:37 WBC RBC Hgb Hct RDW Plt Count Seg Neuts % (Manual) Lymphocytes % (Manual) Nucleated RBC % Seg Neutrophils # Man Lymphocytes # (Manual) Monocytes # (Manual) PT INR APTT D-Dimer Heparin Anti-Xa Level 1.14 H ABG pH POC ABG pCO2 POC ABG pO2 ABG pO2 ABG HCO3 ABG O2 Saturation ABG Base Excess ABG Hemoglobin ABG Oxyhemoglobin ABG Sodium ABG Potassium ABG Chloride ABG Glucose Oxyhemoglobin Carboxyhemoglobin Sodium Potassium Chloride Carbon Dioxide BUN Creatinine Glucose POC Glucose 315 H 248 H Hemoglobin A1c Lactic Acid Calcium Ferritin Lactate Dehydrogenase Troponin T C-Reactive Protein Total Protein Albumin Triglycerides HDL Cholesterol Arterial Blood Glucose Arterial Blood Ionized Calcium Ur Specific Dexter Coronavirus (PCR) 03/17/21 03/17/21 03/17/21 05:24 11:29 15:35 WBC RBC Hgb Hct RDW Plt Count Seg Neuts % (Manual) Lymphocytes % (Manual) Nucleated RBC % Seg Neutrophils # Man Lymphocytes # (Manual) Monocytes # (Manual) PT INR APTT D-Dimer Heparin Anti-Xa Level < 0.10 L ABG pH POC ABG pCO2 POC ABG pO2 ABG pO2 ABG HCO3 ABG O2 Saturation ABG Base Excess ABG Hemoglobin ABG Oxyhemoglobin ABG Sodium ABG Potassium ABG Chloride ABG Glucose Oxyhemoglobin Carboxyhemoglobin Sodium Potassium Chloride Carbon Dioxide BUN Creatinine Glucose POC Glucose 170 H 211 H Hemoglobin A1c Lactic Acid Calcium Ferritin Lactate Dehydrogenase Troponin T C-Reactive Protein Total Protein Albumin Triglycerides HDL Cholesterol Arterial Blood Glucose Arterial Blood Ionized Calcium Ur Specific Dexter Coronavirus (PCR) 03/17/21 03/17/21 03/18/21 17:36 21:58 00:01 WBC RBC Hgb Hct RDW Plt Count Seg Neuts % (Manual) Lymphocytes % (Manual) Nucleated RBC % Seg Neutrophils # Man Lymphocytes # (Manual) Monocytes # (Manual) PT INR APTT D-Dimer Heparin Anti-Xa Level ABG pH POC ABG pCO2 POC ABG pO2 ABG pO2 ABG HCO3 ABG O2 Saturation ABG Base Excess ABG Hemoglobin ABG Oxyhemoglobin ABG Sodium ABG Potassium ABG Chloride ABG Glucose Oxyhemoglobin Carboxyhemoglobin Sodium Potassium Chloride Carbon Dioxide BUN Creatinine Glucose POC Glucose 281 H 187 H 160 H Hemoglobin A1c Lactic Acid Calcium Ferritin Lactate Dehydrogenase Troponin T C-Reactive Protein Total Protein Albumin Triglycerides HDL Cholesterol Arterial Blood Glucose Arterial Blood Ionized Calcium Ur Specific Dexter Coronavirus (PCR) 03/18/21 03/18/21 03/18/21 03:30 03:30 03:30 WBC 20.0 H RBC 3.63 L Hgb Hct RDW 15.7 H Plt Count Seg Neuts % (Manual) Lymphocytes % (Manual) Nucleated RBC % Seg Neutrophils # Man Lymphocytes # (Manual) Monocytes # (Manual) PT INR APTT D-Dimer 3430.09 H Heparin Anti-Xa Level ABG pH POC ABG pCO2 POC ABG pO2 ABG pO2 ABG HCO3 ABG O2 Saturation ABG Base Excess ABG Hemoglobin ABG Oxyhemoglobin ABG Sodium ABG Potassium ABG Chloride ABG Glucose Oxyhemoglobin Carboxyhemoglobin Sodium Potassium Chloride Carbon Dioxide BUN Creatinine 0.3 L Glucose 145 H POC Glucose Hemoglobin A1c Lactic Acid Calcium Ferritin Lactate Dehydrogenase 501 H Troponin T C-Reactive Protein Total Protein Albumin Triglycerides HDL Cholesterol Arterial Blood Glucose Arterial Blood Ionized Calcium Ur Specific Dexter Coronavirus (PCR) 03/18/21 03/18/21 03/18/21 10:40 12:12 17:52 WBC RBC Hgb Hct RDW Plt Count Seg Neuts % (Manual) Lymphocytes % (Manual) Nucleated RBC % Seg Neutrophils # Man Lymphocytes # (Manual) Monocytes # (Manual) PT INR APTT D-Dimer Heparin Anti-Xa Level ABG pH POC ABG pCO2 POC ABG pO2 ABG pO2 65.2 L ABG HCO3 27.5 H ABG O2 Saturation 93.6 L ABG Base Excess 3.2 H ABG Hemoglobin 11.4 L ABG Oxyhemoglobin ABG Sodium ABG Potassium ABG Chloride ABG Glucose Oxyhemoglobin 91.5 L Carboxyhemoglobin Sodium Potassium Chloride Carbon Dioxide BUN Creatinine Glucose POC Glucose 171 H 145 H Hemoglobin A1c Lactic Acid Calcium Ferritin Lactate Dehydrogenase Troponin T C-Reactive Protein Total Protein Albumin Triglycerides HDL Cholesterol Arterial Blood Glucose Arterial Blood Ionized Calcium Ur Specific Dexter Coronavirus (PCR) 03/18/21 03/19/21 03/19/21 23:17 04:45 17:00 WBC RBC Hgb Hct RDW Plt Count Seg Neuts % (Manual) Lymphocytes % (Manual) Nucleated RBC % Seg Neutrophils # Man Lymphocytes # (Manual) Monocytes # (Manual) PT INR APTT D-Dimer Heparin Anti-Xa Level ABG pH POC ABG pCO2 POC ABG pO2 ABG pO2 ABG HCO3 ABG O2 Saturation ABG Base Excess ABG Hemoglobin 11.4 L ABG Oxyhemoglobin ABG Sodium ABG Potassium ABG Chloride ABG Glucose Oxyhemoglobin Carboxyhemoglobin Sodium Potassium Chloride Carbon Dioxide BUN Creatinine Glucose POC Glucose 160 H 110 H Hemoglobin A1c Lactic Acid Calcium Ferritin Lactate Dehydrogenase Troponin T C-Reactive Protein Total Protein Albumin Triglycerides HDL Cholesterol Arterial Blood Glucose Arterial Blood Ionized Calcium Ur Specific Dexter Coronavirus (PCR) 03/19/21 03/19/21 03/20/21 23:46 Unknown 06:28 WBC RBC Hgb Hct RDW Plt Count Seg Neuts % (Manual) Lymphocytes % (Manual) Nucleated RBC % Seg Neutrophils # Man Lymphocytes # (Manual) Monocytes # (Manual) PT INR APTT D-Dimer Heparin Anti-Xa Level ABG pH POC ABG pCO2 POC ABG pO2 ABG pO2 ABG HCO3 ABG O2 Saturation ABG Base Excess ABG Hemoglobin ABG Oxyhemoglobin ABG Sodium ABG Potassium ABG Chloride ABG Glucose Oxyhemoglobin Carboxyhemoglobin Sodium Potassium 3.2 L Chloride Carbon Dioxide BUN Creatinine 0.3 L Glucose POC Glucose 108 H 121 H Hemoglobin A1c Lactic Acid Calcium 7.4 L D Ferritin Lactate Dehydrogenase Troponin T C-Reactive Protein Total Protein Albumin Triglycerides HDL Cholesterol Arterial Blood Glucose Arterial Blood Ionized Calcium Ur Specific Dexter Coronavirus (PCR) 03/20/21 03/20/21 03/20/21 09:44 11:15 12:05 WBC RBC Hgb Hct RDW Plt Count Seg Neuts % (Manual) Lymphocytes % (Manual) Nucleated RBC % Seg Neutrophils # Man Lymphocytes # (Manual) Monocytes # (Manual) PT 15.4 H INR 1.17 H APTT D-Dimer Heparin Anti-Xa Level ABG pH POC ABG pCO2 POC ABG pO2 ABG pO2 ABG HCO3 ABG O2 Saturation ABG Base Excess ABG Hemoglobin ABG Oxyhemoglobin ABG Sodium ABG Potassium ABG Chloride ABG Glucose Oxyhemoglobin Carboxyhemoglobin Sodium Potassium Chloride Carbon Dioxide BUN Creatinine 0.4 L Glucose POC Glucose 142 H Hemoglobin A1c Lactic Acid Calcium Ferritin Lactate Dehydrogenase Troponin T C-Reactive Protein Total Protein Albumin Triglycerides HDL Cholesterol Arterial Blood Glucose Arterial Blood Ionized Calcium Ur Specific Dexter Coronavirus (PCR) 03/20/21 03/20/21 03/20/21 14:04 17:13 21:48 WBC 15.7 H RBC Hgb Hct RDW 16.0 H Plt Count Seg Neuts % (Manual) Lymphocytes % (Manual) Nucleated RBC % Seg Neutrophils # Man Lymphocytes # (Manual) Monocytes # (Manual) PT INR APTT D-Dimer Heparin Anti-Xa Level ABG pH POC ABG pCO2 POC ABG pO2 ABG pO2 ABG HCO3 ABG O2 Saturation ABG Base Excess ABG Hemoglobin ABG Oxyhemoglobin ABG Sodium ABG Potassium ABG Chloride ABG Glucose Oxyhemoglobin Carboxyhemoglobin Sodium Potassium Chloride Carbon Dioxide BUN Creatinine Glucose POC Glucose 115 H 114 H Hemoglobin A1c Lactic Acid Calcium Ferritin Lactate Dehydrogenase Troponin T C-Reactive Protein Total Protein Albumin Triglycerides HDL Cholesterol Arterial Blood Glucose Arterial Blood Ionized Calcium Ur Specific Dexter Coronavirus (PCR) 03/20/21 03/20/21 03/20/21 Unknown Unknown Unknown WBC 16.5 H RBC Hgb Hct RDW 15.4 H Plt Count Seg Neuts % (Manual) Lymphocytes % (Manual) Nucleated RBC % Seg Neutrophils # Man Lymphocytes # (Manual) Monocytes # (Manual) PT INR APTT D-Dimer 4136.20 H Heparin Anti-Xa Level ABG pH POC ABG pCO2 POC ABG pO2 ABG pO2 ABG HCO3 ABG O2 Saturation ABG Base Excess ABG Hemoglobin ABG Oxyhemoglobin ABG Sodium ABG Potassium ABG Chloride ABG Glucose Oxyhemoglobin Carboxyhemoglobin Sodium Potassium Chloride Carbon Dioxide BUN Creatinine Glucose POC Glucose Hemoglobin A1c Lactic Acid Calcium Ferritin Lactate Dehydrogenase 512 H Troponin T C-Reactive Protein Total Protein Albumin Triglycerides HDL Cholesterol Arterial Blood Glucose Arterial Blood Ionized Calcium Ur Specific Dexter Coronavirus (PCR) 03/21/21 03/21/21 03/21/21 07:42 10:00 10:00 WBC RBC Hgb Hct RDW 15.7 H Plt Count Seg Neuts % (Manual) 85.0 H Lymphocytes % (Manual) 5.0 L Nucleated RBC % Seg Neutrophils # Man 9.3 H Lymphocytes # (Manual) 0.5 L Monocytes # (Manual) PT INR APTT D-Dimer Heparin Anti-Xa Level ABG pH POC ABG pCO2 POC ABG pO2 ABG pO2 ABG HCO3 ABG O2 Saturation ABG Base Excess ABG Hemoglobin ABG Oxyhemoglobin ABG Sodium ABG Potassium ABG Chloride ABG Glucose Oxyhemoglobin Carboxyhemoglobin Sodium Potassium 3.4 L Chloride 107.8 H Carbon Dioxide BUN Creatinine 0.3 L Glucose POC Glucose 109 H Hemoglobin A1c Lactic Acid Calcium 7.6 L Ferritin Lactate Dehydrogenase Troponin T C-Reactive Protein Total Protein 5.2 L Albumin 3.3 L Triglycerides HDL Cholesterol Arterial Blood Glucose Arterial Blood Ionized Calcium Ur Specific Dexter Coronavirus (PCR) 03/21/21 03/21/21 03/22/21 11:23 21:36 05:00 WBC RBC Hgb Hct RDW Plt Count Seg Neuts % (Manual) Lymphocytes % (Manual) Nucleated RBC % Seg Neutrophils # Man Lymphocytes # (Manual) Monocytes # (Manual) PT INR APTT D-Dimer Heparin Anti-Xa Level ABG pH POC ABG pCO2 POC ABG pO2 ABG pO2 ABG HCO3 ABG O2 Saturation ABG Base Excess ABG Hemoglobin ABG Oxyhemoglobin ABG Sodium ABG Potassium ABG Chloride ABG Glucose Oxyhemoglobin Carboxyhemoglobin Sodium Potassium Chloride Carbon Dioxide BUN Creatinine Glucose POC Glucose 173 H 109 H Hemoglobin A1c 7.0 H Lactic Acid Calcium Ferritin Lactate Dehydrogenase Troponin T C-Reactive Protein Total Protein Albumin Triglycerides HDL Cholesterol Arterial Blood Glucose Arterial Blood Ionized Calcium Ur Specific Dexter Coronavirus (PCR) 03/22/21 03/22/21 03/22/21 05:10 07:46 11:35 WBC RBC Hgb Hct RDW Plt Count Seg Neuts % (Manual) Lymphocytes % (Manual) Nucleated RBC % Seg Neutrophils # Man Lymphocytes # (Manual) Monocytes # (Manual) PT INR APTT D-Dimer Heparin Anti-Xa Level ABG pH POC ABG pCO2 POC ABG pO2 ABG pO2 ABG HCO3 ABG O2 Saturation ABG Base Excess ABG Hemoglobin ABG Oxyhemoglobin ABG Sodium ABG Potassium ABG Chloride ABG Glucose Oxyhemoglobin Carboxyhemoglobin Sodium Potassium Chloride Carbon Dioxide BUN Creatinine Glucose POC Glucose 119 H 133 H 114 H Hemoglobin A1c Lactic Acid Calcium Ferritin Lactate Dehydrogenase Troponin T C-Reactive Protein Total Protein Albumin Triglycerides HDL Cholesterol Arterial Blood Glucose Arterial Blood Ionized Calcium Ur Specific Dexter Coronavirus (PCR) 03/22/21 03/22/21 03/23/21 15:50 23:09 05:30 WBC RBC Hgb Hct RDW Plt Count Seg Neuts % (Manual) Lymphocytes % (Manual) Nucleated RBC % Seg Neutrophils # Man Lymphocytes # (Manual) Monocytes # (Manual) PT INR APTT D-Dimer Heparin Anti-Xa Level ABG pH POC ABG pCO2 POC ABG pO2 ABG pO2 ABG HCO3 ABG O2 Saturation ABG Base Excess ABG Hemoglobin ABG Oxyhemoglobin ABG Sodium ABG Potassium ABG Chloride ABG Glucose Oxyhemoglobin Carboxyhemoglobin Sodium Potassium Chloride Carbon Dioxide BUN Creatinine 0.4 L Glucose POC Glucose 113 H 116 H Hemoglobin A1c Lactic Acid Calcium Ferritin Lactate Dehydrogenase Troponin T C-Reactive Protein Total Protein Albumin Triglycerides HDL Cholesterol Arterial Blood Glucose Arterial Blood Ionized Calcium Ur Specific Dexter Coronavirus (PCR) 03/23/21 03/23/21 06:43 10:56 WBC RBC Hgb Hct RDW Plt Count Seg Neuts % (Manual) Lymphocytes % (Manual) Nucleated RBC % Seg Neutrophils # Man Lymphocytes # (Manual) Monocytes # (Manual) PT INR APTT D-Dimer Heparin Anti-Xa Level ABG pH POC ABG pCO2 POC ABG pO2 ABG pO2 ABG HCO3 ABG O2 Saturation ABG Base Excess ABG Hemoglobin ABG Oxyhemoglobin ABG Sodium ABG Potassium ABG Chloride ABG Glucose Oxyhemoglobin Carboxyhemoglobin Sodium Potassium Chloride Carbon Dioxide BUN Creatinine Glucose POC Glucose 125 H 116 H Hemoglobin A1c Lactic Acid Calcium Ferritin Lactate Dehydrogenase Troponin T C-Reactive Protein Total Protein Albumin Triglycerides HDL Cholesterol Arterial Blood Glucose Arterial Blood Ionized Calcium Ur Specific Dexter Coronavirus (PCR) Allied health notes reviewed: nursing
[2021-03-23] MEDS: FAMOTIDINE 20 MG TAB PO SCH (12:12)
[2021-03-23] MEDS: ZINC SULFATE 220 MG CAP PO SCH (12:12)
[2021-03-23] MEDS: ASCORBIC ACID 500 MG TAB PO SCH (12:12)
[2021-03-23] MEDS: CHOLECALCIFEROL (VIT D3) 5,000 UNIT TAB PO SCH (12:12)
[2021-03-23] MEDS: SENNOSIDES/DOCUSATE SODIUM 8.6/50 MG TAB FEEDTUBE SCH (12:12)
[2021-03-23] MEDS: APIXABAN 5 MG TAB PO SCH (12:12)
--- NOTE | 2021-03-23 13:00 | Progress Note ---
Assessment and Plan 45-year-old female with no significant past medical history admitted to the hospital service with COVID-19 pneumonia, multiple peripheral bilateral lower lobe pulmonary emboli, septic shock, leukocytosis, hyponatremia, hypochloremia, metabolic acidosis, lactic acidosis. COVID-19 pneumonia - improving -Status post steroid, remdesivir and Actemra Septic shock secondary to COVID-19 pneumonia - improving Acute hypoxic respiratory failure -status post intubation, improving Pulmonary embolism on AC Left posterior tibial and peroneal veins DVT, on AC Leukocytosis - downtrending Lactic acidosis -imprroved Thrombocytopenia (improved-03/08 HIT NEGATIVE) Oropharyngeal dysphagia Urinary retention Hyperglycemia, stress induced Acute metabolic encephalopathy due to sepsis, improved Morbid Obesity Brief history: This is a 45-year-old female with significant past medical history presented to emergency department on 03/07 complaining of cough, shortness of breath and diarrhea for 3 days prior to arrival. Upon arrival to emergency department patient was found to be in respiratory distress and initial oxygen saturations were said to be in the 50s and patient was placed on a nonrebreather and was subsequently intubated in the emergency department and upon review patient did not receive COVID-19 vaccination. Work-up in the emergency department revealed bilateral pulmonary infiltrates on CXR, leukocytosis of 31,000, hyperglycemia with a blood glucose of 301, elevated D-dimer greater than 10,000., CTA chest showed multiple peripheral bilateral lower lobe pulmonary emboli. Patient was hypotensive in the emergency department and fluid resuscitated and started on vasopressors. Patient will be admitted to the hospital service with COVID-19 PUI, septic shock secondary to pneumonia, pulmonary emboli and acute hypoxic respiratory failure. [facility] and infectious disease were consulted. Patient was s tarted on heparin drip. Daily clinical course: 03/08: New issues: Thrombocytosis question if this is secondary to HIT. We will send out HIT panel. Monitor platelets. Continue heparin drip at this time. Await pulmonary and ID input. 03/09: Patient noted to have Covid positive pneumonia ID input is appreciated patient on dexamethasone for complete 10 days of therapy now started on remdesivir due to hypoxia also to complete 5 days therapy and Actemra a one- time. We will continue to monitor -Obtain q48-72h inflammatory markers - ferritin, Ddimer, CRP, LDH -Continue ceftriaxone 2 gm IV qday and azithromycin 500 mg PO qday for 5 days given elevated procal -Anticoagulation per hospital protocol -Proning as able I also requested a stat CBC to further evaluate thrombocytosis that was noted yesterday. I called [facility] ring to update and got voicemail left a message. I also called James Hernandez but his phone is unable to accept messages at this time. 03/10: Possible ileus versus bowel obstruction. Will obtain KUB. Continue to hold tube feeds at this time. We will also obtain GI consult if no resolution. Also patient noted to have urinary retention we will proceed with placing a Maya catheter. She does follow commands some when off sedation but gets easily agitated. Continue ICU management at this point. 03/11: Blood sugar still elevated adjusted nighttime insulin for better coverage. KUB concerning for radiopaque object possible tablet. Was not present on 03 08. We will repeat a KUB in a.m. to see if resolution versus ileus. Continue current management for COVID-19. Continue heparin drip for noted pulmonary em bolism. Platelets actually improved despite being on heparin doubt HIT. Patient still requires critical care monitoring. Altered mental status still present. 03/12: Worsening leukocytosis this could be secondary to steroids. We will give Lasix today in addition to empiric vitamins. Chest x-ray shows worsening opacities will monitor closely. Continue full mechanical ventilation and restraints for safety. 03/13: At the time my examination patient was on fentanyl at 3 mcg, heparin drip, pressure control ventilation with a rate of 20, pressure support of 20, FiO2 of 35% and PEEP of 12 and ECMO blood change patient ventilation to assist control tidal volume 450, rate of 14, PEEP of 10 in the morning. RN reported the patient did not have a BM since admission and [facility] ordered mag citrate x1. 03/14: SBT trial per CCM, leukocytosis and D-dimer is improving. Patient is hyperglycemic and long-acting insulin dosage has been increased. Patient has pseudohyponatremia today. Nurse reported that patient central line was not drawing back blood and Cathflo was ordered. No acute events reported overnight. 03/15: Patient is severely agitated and SBT trial was not attempted today. Patient remains hyperglycemic and insulin has been adjusted accordingly. [facility] will start the patient on Seroquel and attempt to wean propofol. Patient was hypotensive after sedation was increased and she received a 500 mL LR bolus today. We will obtain the ECG in the a.m. to assess QTc. RN to attempt to obtai n PIV 03/16: Patient still has moments of severe agitation and her Seroquel will be increased today. Patient's urinary catheter was replaced due to retention patient has been started on Flomax. At the time my examination patient patient was sedated on propofol and fentanyl on AC. Patient still has leukocytosis and hyperglycemia. Insulin increased. We will obtain triglyceride level in the morning. CCM opted to removal otis and replace CVL with PICC. 03/17: This morning the time of examination patient sedated on propofol and fentanyl assist control ventilation tidal volume 450, rate of 14, PEEP of 8 and 35% FiO2. EKG this a.m. showed a QTC of 407. Patient was able to follow commands at time of examination. Patient will be started on precedex and heparin gtt changed to lovenox. Lantus increased 03/18: This morning patient was sedated with propofol, fentanyl, precedex gtt. RT to attempt SBT and will obtain an ABG after. Lantus decreased as steroids ended today. CCM to give one time dose of lasix. 03/19/2021: Patient seen and examined this morning, patient self extubated, on nasal cannula oxygen, patient waxing and waning with some delirium but speaking Andorran and updated patient on her status. 03/20/21: Patient self extubated herself yesterday. Continue to maintain oxygen saturation, follow ABG., Pulmonary critical care following. Continue supportive care. Transferred to telemetry. 03/21/21: Patient today on 3 L nasal cannula, saturating well. PT recommended subacute rehab but patient is unfunded. Plan continue to monitor clinically. Discussed with CM for O2 arrangement and placement. Advance diet as tolerated. 03/22/21: remains on 4-5L o2. CM assisting with home O2 arrangement. plan to d/c home with home O2. Discussed discharge plan of care thoroughly with the patient and patient family by phone. Also discussed with the case management. Patient family wants to take her back to [facility] when patient is feeling more stable. Patient is agreeable with the plan. Subjective Date of service: 03/22/21 Principal diagnosis: Ac. hypoxemic resp. failure; Septic Shock; COVID-19 Pneumonia; VTE; NSTEMI Interval history: Patient seen and examined. Medical records and medication list reviewed. No acute event overnight noted by the RN. Patient denies any chest pain, Patient remains on nasal cannula O2, she is tolerating diet. Discussed plan of care at bedside with patient and with her family by phone. Objective - Exam Narrative Exam: Limited physical exam due to COVID-19 pandemic to minimize transmission of the disease and to preserve PPE. Vital reviewed and stable. GENERAL: well-developed well-nourished female lying on bed appeared to be in no discomfort. HEENT: Normocephalic. Atraumatic. NECK: Supple. CHEST/LUNGS: breathing nonlabored. HEART/CARDIOVASCULAR: Heart rate stable on telemetry ABDOMEN: Visibly not distended SKIN: There is no rash NEURO: No focal motor deficit. Follows command. MUSCULOSKELETAL: No joint effusion EXTRIMITY: No swelling, no cyanosis or clubbing. PSYCH: Cooperative. - Constitutional Vitals: Vital Signs - 12hr 03/23/21 03/23/21 04:00 08:09 Pulse Rate 80 O2 Sat by Pulse 96 Oximetry - Labs CBC & Chem 7: 03/21/21 10:00 03/23/21 05:30 Labs: Abnormal lab results 03/22/21 03/22/21 03/22/21 Range/Units 05:00 07:46 11:35 Creatinine (0.6-1.2) mg/dL POC Glucose 133 H 114 H (70-105) mg/dL Hemoglobin A1c 7.0 H (4-6) % 03/22/21 03/22/21 03/23/21 Range/Units 15:50 23:09 05:30 Creatinine 0.4 L (0.6-1.2) mg/dL POC Glucose 113 H 116 H (70-105) mg/dL Hemoglobin A1c (4-6) % 03/23/21 03/23/21 Range/Units 06:43 10:56 Creatinine (0.6-1.2) mg/dL POC Glucose 125 H 116 H (70-105) mg/dL Hemoglobin A1c (4-6) % HEART Score - HEART Score EKG: Normal Age: 45-65 Risk factors: No known risk factors Troponin: Troponin T 0.085 ng/mL (0.00-0.029) H 03/07/21 20:31 Troponin: < normal limit - Critical Actions Critical Actions: 0-3 pts:0.9-1.7%risk of adverse cardiac event.Candidate for discharge
[2021-03-23 13:38] VITALS: BP 104/70
== END 2021-03-23 17:26 | disposition home health service (06) | DRG 207 ==
LOC: ED 19:56 → CC1 22:26 → 3A 03-20 16:22
PROVIDERS: ADMIT Internal Medicine Geriatric Medicine; ATTEND Internal Medicine
PROC: 5A1955Z Respiratory Ventilation, Greater than 96 Consecutive Hours (ICD-10-PCS; 2021-03-07)
PROC: 0BH17EZ Insertion of Endotracheal Airway into Trachea, Via Natural or Artificial Opening (ICD-10-PCS; 2021-03-07)
PROC: 05HY33Z Insertion of Infusion Device into Upper Vein, Percutaneous Approach (ICD-10-PCS; 2021-03-07)
PROC: B543ZZA Ultrasonography of Right Jugular Veins, Guidance (ICD-10-PCS; 2021-03-07)
PROC: 4A033R1 Measurement of Arterial Saturation, Peripheral, Percutaneous Approach (ICD-10-PCS; principal; 2021-03-08)
PROC: XW033E5 Introduction of Remdesivir Anti-infective into Peripheral Vein, Percutaneous Approach, New Technology Group 5 (ICD-10-PCS; 2021-03-08)
PROC: 03HB33Z Insertion of Infusion Device into Right Radial Artery, Percutaneous Approach (ICD-10-PCS; 2021-03-15)
PROC: B34HZZZ Ultrasonography of Right Upper Extremity Arteries (ICD-10-PCS; 2021-03-15)
PROC: 05HY33Z Insertion of Infusion Device into Upper Vein, Percutaneous Approach (ICD-10-PCS; 2021-03-17)
PROC: 5A09357 Assistance with Respiratory Ventilation, Less than 24 Consecutive Hours, Continuous Positive Airway Pressure (ICD-10-PCS; 2021-03-19)
DX: U07.1 COVID-19 (principal); A41.89 Other specified sepsis; R65.21 Severe sepsis with septic shock; I26.99 Other pulmonary embolism without acute cor pulmonale; J12.82 Pneumonia due to coronavirus disease 2019; J96.01 Acute respiratory failure with hypoxia; I21.4 Non-ST elevation (NSTEMI) myocardial infarction; G93.41 Metabolic encephalopathy; E87.1 Hypo-osmolality and hyponatremia; K56.7 Ileus, unspecified; Z68.41 Body mass index [BMI] 40.0-44.9, adult; D69.6 Thrombocytopenia, unspecified; R13.12 Dysphagia, oropharyngeal phase; E11.65 Type 2 diabetes mellitus with hyperglycemia; R33.8 Other retention of urine; E66.01 Morbid (severe) obesity due to excess calories; E87.6 Hypokalemia
CPT/HCPCS: 36415; 36600; 71045; 71275; 74018; 80048; 80053; 80061; 81001; 82140; 82565; 82728; 82803; 82805; 82947; 82962; 83036; 83615; 84145; 84478; 84484; 84703; 85007; 85014; 85018; 85025; 85027; 85379; 85520; 85610; 85730; 86022; 86140; 87040; 87070; 87086; 87205; 93005; 93970; 94002; 94003; 94640; 94660; 96374; 96375; G0378; J0330; J0360; J0456; J0696; J1100; J1644; J1650; J1815; J1940; J2270; J2704; J2765; J2997; J3010; J3262; J3370; J3490; J7030; J7040; J7050; J7120; Q9967; U0003